=== PATIENT | female | born 1960 | race Caucasian/White ===

== ENCOUNTER 2023-11-22 08:31 | Outpatient (OUT) | payer OTHER, SELFPAY ==
--- NOTE | 2023-11-22 | XR_ITS ---
The [address] [address] Patient Name: POOJA JOSEPH MRN: [id number] date: 1960 Sex: F Assigned Patient Location: US Current Patient Location: US Accession/Order Number: [id number] Exam Date: 11/22/2023 09:00 Report Date: 11/24/2023 07:13 At the request of: LORA BRAUN Procedure: XR abdomen 1V EXAMINATION: XR abdomen 1V HISTORY: History of kidney stones Z87.442 COMPARISON: No relevant comparison available. FINDINGS: KIDNEY/URETER - RIGHT: No visible renal or ureteral calcifications. KIDNEY/URETER - LEFT: 4 mm calcification upper pole PELVIS: No visible ureteral calcifications. Any visible calcifications favor phleboliths. BOWEL: No abnormal dilation or deviation. Large amount of stool in the right colon BONES: No acute abnormality. OTHER: Negative. No abnormal gaseous collections. XR/XR abdomen 1V IMPRESSION: 4 mm left nephrolith Electronically authenticated by: ADRY LANGLEY Date: 11/24/2023 07:13
--- NOTE | 2023-11-22 | US_ITS ---
[address] [address] Patient Name: OPOJA JOSEPH MRN: [id number] date: 1960 Sex: F Assigned Patient Location: US Current Patient Location: Accession/Order Number: [id number] Exam Date: 11/22/2023 08:35 Report Date: 11/24/2023 07:05 At the request of: LORA BRAUN Procedure: US renal BI EXAMINATION: US renal BI HISTORY: History of kidney stones Z87.442 COMPARISON: No relevant comparison available. TECHNIQUE: Ultrasound examination was performed of the bladder. FINDINGS: Right Kidney: Normal in size and contour. Diffusely hyperechogenic appearance of the renal pyramids. No solid cortical mass, hydronephrosis or obstructing nephrolithiasis. The cortex measures 0.6 cm Height: 5.7 cm Length: 10.3 cm Width: 5.8 cm Left Kidney: Normal in size and contour. Diffusely hyperechogenic appearance of the renal pyramids. No solid cortical mass, hydronephrosis or obstructing nephrolithiasis. The cortex measures 0.6 cm Height: 4.5 cm Length: 9.9 cm Width: 4.6 cm Urinary bladder volume is 279 mL. 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
== END 2023-11-22 08:32 | disposition home or self-care (01) ==
LOC: US 08:31
PROVIDERS: PCP Family Medicine; Visit Provider Physician Assistant
DX: N20.1 Calculus of ureter (principal); Z87.442 Personal history of urinary calculi; N20.0 Calculus of kidney
CPT/HCPCS: 74018; 76775

== ENCOUNTER 2024-02-02 15:45 | Inpatient (IN) | payer OTHER, SELFPAY ==
[2024-02-02] VITALS (8 sets, daily range): BP systolic 154–200; BP diastolic 82–101; PULSE 60–84; TEMP 36.5–36.7; O2SAT 87–98; BMI 30.8; BMI 33.5
--- NOTE | 2024-02-02 16:28 | ED_ITS ---
HPI HPI - General Adult General Chief complaint: Back Pain/Injury Stated complaint: Flank Pain, HX Kidney Stones Time Seen by Provider: 02/02/24 15:53 Mode of arrival: walk-in Limitations: no limitations History of Present Illness HPI narrative: 63-year-old female presents for right flank pain. It started at 2:00 this afternoon and she was sitting when it started. There was no injury. No hematuria or injury or unusual activity. She has a history of kidney stones and thinks she may have another 1. Related Data Home Medications ?Medication ?Instructions ?Recorded ?Confirmed albuterol sulfate 2.5 mg/3 mL 2.5 mg inhalation 02/02/24 (0.083 %) solution for nebulization alendronate 70 mg tablet 70 mg PO .weekly 02/02/24 02/02/24 aspirin 81 mg capsule 81 mg PO DAILY 02/02/24 02/02/24 budesonide-formoterol HFA 160 2 puff inhalation Q12H 02/02/24 02/02/24 mcg-4.5 mcg/actuation aerosol inhaler (Symbicort) cyproheptadine 4 mg tablet 4 mg PO .hs 02/02/24 02/02/24 docusate sodium 100 mg capsule 100 mg PO DAILY 02/02/24 02/02/24 losartan 50 mg tablet 50 mg PO DAILY 02/02/24 02/02/24 methimazole 10 mg tablet 10 mg PO DAILY 02/02/24 02/02/24 montelukast 10 mg tablet 10 mg PO DAILY 02/02/24 02/02/24 Allergies Allergy/AdvReac Type Severity Reaction Status Date / Time No Known Drug Allergies Allergy Verified 02/02/24 15:59 Opioid HPI Opioid Management Most Recent Opioid Data: Last Pain Scale 10 02/02/24 18:15 Last NOV Pain Assessment 02/02/24 18:07 Review of Systems ROS Narrative A ten point review of systems is negative except as noted above. Exam Narrative Exam Narrative: Nurses note and vital signs reviewed and patient is not hypoxic. General: The patient appears uncomfortable. Skin: Warm, dry, no pallor noted. There is no rash noted. Head: Normocephalic, atraumatic Eye: Normal conjunctiva, no drainage Ears, Nose, Mouth, and Throat: oral mucosa is moist. Nares patent. Cardiovascular: Regular Rate and Rhythm Respiratory: Patient is in no distress, no accessory muscle use, lungs are clear to auscultation, no wheezing, rales or rhonchi Back: non-tender, no bruise or rash on her back GI: Soft and nontender Musculoskeletal: The patient has no evidence of calf tenderness, no pitting edema, symmetrical pulses noted bilaterally Neurological: A&O, normal speech Psychiatric: Cooperative Constitutional Vital Signs, click to edit/add: Last Vital Signs Temp 97.7 F 02/02/24 16:04 Pulse 76 02/02/24 18:14 Resp 24 H 02/02/24 18:14 BP 160/88 H 02/02/24 18:14 Pulse Ox 96 02/02/24 18:14 O2 Del Method Room Air 02/02/24 16:04 Course Vital Signs Vital signs: Vital Signs Temperature 97.7 F 02/02/24 16:04 Pulse Rate 84 02/02/24 16:04 Respiratory Rate 17 02/02/24 16:04 Blood Pressure 200/101 H 02/02/24 16:04 Pulse Oximetry 98 02/02/24 16:04 Oxygen Delivery Method Room Air 02/02/24 16:04 Temperature 97.7 F 02/02/24 16:04 Pulse Rate 76 02/02/24 18:14 Respiratory Rate 24 H 02/02/24 18:14 Blood Pressure 160/88 H 02/02/24 18:14 Pulse Oximetry 96 02/02/24 18:14 Oxygen Delivery Method Room Air 02/02/24 16:04 Medical Decision Making MDM Narrative Medical decision making narrative: The patient has a 4 mm distal stone with significant hydronephrosis. She has been having a great deal of pain here and has required multiple doses of IV pain medication. She was covered with IV Rocephin as well and a urine culture was ordered. It is expected that she will be admitted. Differential Diagnosis Differential Diagnosis: Kidney stone, pyelonephritis, UTI Lab Data Lab results reviewed: Yes I reviewed the patient's lab results Labs: Lab Results 02/02/24 Range/Units 16:20 WBC 12.1 H (4.0-11.0) 10^3/uL RBC 4.87 (4.20-5.40) 10^6/uL Hgb 13.9 (12.0-16.0) g/dL Hct 43.7 (36.0-48.0) % MCV 89.7 (81.0-99.0) fL MCH 28.5 (26.7-34.0) pg MCHC 31.8 (29.9-35.2) g/dL RDW 13.6 (11.0-15.0) % Plt Count 313 (150-450) 10^3/uL MPV 9.9 (9.5-13.5) fL Neut % (Auto) 85.3 H (43.0-75.0) % Lymph % (Auto) 8.3 L (20.5-60.0) % [place] % (Auto) 4.6 (1.7-12.0) % Eos % (Auto) 1.2 (0.9-7.0) % Baso % (Auto) 0.3 (0.2-2.0) % Neut # (Auto) 10.3 H (1.4-6.5) 10^3/uL Lymph # (Auto) 1.0 L (1.2-3.8) 10^3/uL [place] # (Auto) 0.6 (0.3-0.8) 10^3/uL Eos # (Auto) 0.2 (0.0-0.7) 10^3/uL Baso # (Auto) 0.0 (0.0-0.1) 10^3/uL Abs Immat Gran (auto) 0.04 H (0.00-0.03) 10^3/uL Imm/Tot Granulo (auto) 0.3 (0.0-0.5) % Sodium 139 (136-145) mmol/L Potassium 3.8 (3.5-5.1) mmol/L Chloride 103 (98-107) mmol/L Carbon Dioxide 26.6 (21.0-32.0) mmol/L Anion Gap 13.2 BUN 15.0 (7.0-18.0) mg/dL Creatinine 0.76 (0.55-1.02) mg/dL Est GFR ( Amer) >60 (>=60) Est GFR (Non-Af Amer) >60 (>=60) BUN/Creatinine Ratio 19.7 Glucose 158 H (74-106) mg/dL Calcium 9.2 (8.5-10.1) mg/dL Urine Color Yellow (YELLOW) Urine Clarity Clear (CLEAR) Urine pH 6.0 (5.0-9.0) Ur Specific [place] >=1.030 A (1.005-1.025) Urine Protein 30 A (NEG/TRACE) mg/dL Urine Glucose (UA) Negative (NEGATIVE) mg/dL Urine Ketones Trace A (NEGATIVE) mg/dL Urine Occult Blood Large A (NEGATIVE) Urine Nitrite Negative (NEGATIVE) Urine Bilirubin Negative (NEGATIVE) Urine Urobilinogen 1.0 (0.2-1.0) EU/dL Ur Leukocyte Esterase Small A (NEGATIVE) Urine RBC 20-50 A (0-2) #/HPF Urine WBC 2-5 A (NONE SEEN) #/HPF Ur Squamous Epith Cells Few A (NONE/RARE) #/LPF Urine Crystals None seen (None Seen) #/HPF Urine Bacteria Moderate A (NONE SEEN) #/HPF Urine Casts None seen (NONE SEEN) #/LPF Urine Mucus None seen (NONE SEEN) Ur Culture Indicated? Yes Imaging Data CT scan - abdomen: Radiologist's impression: ITS Impressions Abdomen/Pelvis CT 02/02/24 16:28 IMPRESSION: Obstructing 4 mm right distal ureteral stone resulting in moderate hydronephrosis. Electronically authenticated by: KIA MONTES Date: 02/02/2024 18:02 Discharge Plan Discharge Chief Complaint: Back Pain/Injury Clinical Impression: Renal colic, Kidney stone Patient Disposition: Admitted as Observation Time of Disposition Decision: 18:48 Condition: Good
--- NOTE | 2024-02-02 16:28 | CT_ITS ---
The [address] [address] Patient Name: POOJA JOSEPH MRN: [facility]:[id number] date: 1960 Sex: F Assigned Patient Location: ER Current Patient Location: ER Accession/Order Number: [id number] Exam Date: 02/02/2024 16:47 Report Date: 02/02/2024 18:02 At the request of: KACEY CORDOVA Procedure: CT abdomen pelvis wo con CT ABDOMEN/PELVIS WITHOUT IV CONTRAST. INDICATION: flank pain, r/o stone COMPARISON: There are no other studies available for comparison. TECHNIQUE: Contiguous axial images were obtained from the lung bases to the pelvic floor without intravenous or oral contrast. Coronal and sagittal reformations are provided. FINDINGS: LOWER LUNGS: Clear. LIVER/BILIARY TREE: No discrete lesion. No intrahepatic ductal dilatation. GALLBLADDER: Status post cholecystectomy.. CBD: Normal CBD. SPLEEN: Normal in size. PANCREAS: No appreciable peripancreatic fluid. No pancreatic ductal dilatation. No discrete lesion. ADRENALS: Normal. KIDNEYS: There is an obstructing 3 x 4 mm stone in the distal right ureter near the UVJ resulting in moderate hydronephrosis. Left nephrolithiasis. . STOMACH AND BOWEL: Moderate size hiatal hernia. No dilated bowel loops. No bowel wall thickening. APPENDIX: Not well-visualized. PERITONEAL CAVITY: No fluid. No fat stranding. ABDOMINAL WALL: No subcutaneous stranding. No subcutaneous fluid collection. LYMPH NODES: No mesenteric or retroperitoneal lymphadenopathy by CT criteria. ABDOMINAL AORTA: No aneurysm. PELVIS: Right distal ureteral stone as described above. MUSCULOSKELETAL: No acute osseous abnormality. CT/CT abdomen pelvis wo con IMPRESSION: Obstructing 4 mm right distal ureteral stone resulting in moderate hydronephrosis. Electronically authenticated by: KIA MONTES Date: 02/02/2024 18:02
[2024-02-02] MEDS: MORPHINE SULFATE 4 MG/ML VIAL IV ×2 (16:37→17:23)
[2024-02-02 16:43] LABS: Basophils Percent Auto 0.3 % (0.2-2.0); Eosinophils Absolute Auto 0.2 10^3/uL (0.0-0.7); Eosinophils Percent Auto 1.2 % (0.9-7.0); Hematocrit 43.7 % (36.0-48.0); Hemoglobin 13.9 g/dL (12.0-16.0); Immature Granulocytes Abs Auto 0.04 10^3/uL (0.00-0.03); Immature Granulocytes Pct Auto 0.3 % (0.0-0.5); Lymphocytes Percent Auto 8.3 % (20.5-60.0); Mean Corpuscular HGB Conc 31.8 g/dL (29.9-35.2); Mean Corpuscular Hemoglobin 28.5 pg (26.7-34.0); Mean Corpuscular Volume 89.7 fL (81.0-99.0); Mean Platelet Volume 9.9 fL (9.5-13.5); Monocytes Absolute Auto 0.6 10^3/uL (0.3-0.8); Monocytes Percent Auto 4.6 % (1.7-12.0); Neutrophils Absolute Auto 10.3 10^3/uL (1.4-6.5); Neutrophils Percent Auto 85.3 % (43.0-75.0); Platelet Count 313 10^3/uL (150-450); Red Blood Count 4.87 10^6/uL (4.20-5.40); Red Cell Distribution Width 13.6 % (11.0-15.0); White Blood Count 12.1 10^3/uL (4.0-11.0)
[2024-02-02 16:52] LABS: Anion Gap 13.2; BUN Creatinine Ratio 19.7; Calcium 9.2 mg/dL (8.5-10.1); Carbon Dioxide 26.6 mmol/L (21.0-32.0); Chloride 103 mmol/L (98-107); Estimated GFR (African America >60 (>=60); Estimated GFR (Non-African Ame >60 (>=60); Glucose 158 mg/dL (74-106); Potassium 3.8 mmol/L (3.5-5.1); Sodium 139 mmol/L (136-145)
[2024-02-02 16:58] LABS: Bilirubin Urine NEGATIVE (NEGATIVE); Blood Urine LARGE (NEGATIVE); Clarity Urine CLEAR (CLEAR); Color Urine YELLOW (YELLOW); Glucose Urine UA NEGATIVE (NEGATIVE); Ketones Urine TRACE mg/dL (NEGATIVE); Leukocyte Esterase Urine SMALL (NEGATIVE); Nitrite Urine NEGATIVE (NEGATIVE); Protein Urine 30 mg/dL (NEG/TRACE); Specific Gravity Urine >=1.030 (1.005-1.025)
[2024-02-02 17:07] LABS: Bacteria Urine MODERATE #/HPF (NONE SEEN); Cast Seen? NONE SEEN #/LPF (NONE SEEN); Crystals Seen? None Seen #/HPF (None Seen); Mucus Urine NONE SEEN (NONE SEEN); RBC Urine 20-50 #/HPF (0-2); Squamous Epithelial Cell Urine FEW #/LPF (NONE/RARE); Urine Culture Indicated YES
[2024-02-02] MEDS: ONDANSETRON PF 4 MG/2 ML VIAL IV ×2 (17:09→22:54)
[2024-02-02] MEDS: HYDROMORPHONE HCL 1 MG/ML CARTRIDGE IV (18:07)
[2024-02-02] MEDS: PROMETHAZINE HCL 12.5 MG in 0.9 % SODIUM CHLORIDE 50 ML 202 MG IV (18:10)
[2024-02-02] MEDS: CEFTRIAXONE 1,000 MG in 0.9 % SODIUM CHLORIDE 50 ML 100 MG IV (18:29)
[2024-02-02 20:42] LABS: Hematocrit 41.9 % (36.0-48.0); Hemoglobin 13.1 g/dL (12.0-16.0); Mean Corpuscular HGB Conc 31.3 g/dL (29.9-35.2); Mean Corpuscular Volume 92.7 fL (81.0-99.0); Mean Platelet Volume 10.6 fL (9.5-13.5); Platelet Count 225 10^3/uL (150-450); Red Blood Count 4.52 10^6/uL (4.20-5.40); Red Cell Distribution Width 13.5 % (11.0-15.0); White Blood Count 16.2 10^3/uL (4.0-11.0)
[2024-02-02 20:57] LABS: Alanine Aminotransferase 40 U/L (14-59); Albumin Globulin Ratio 0.8; Albumin Level 2.9 g/dL (3.4-5.0); Alkaline Phosphatase 88 U/L (46-116); Anion Gap 11.1; Aspartate Amino Transferase 20 U/L (15-37); BUN Creatinine Ratio 21.5; Bilirubin Total 0.3 mg/dL (0.2-1.0); Calcium 8.7 mg/dL (8.5-10.1); Carbon Dioxide 25.4 mmol/L (21.0-32.0); Chloride 105 mmol/L (98-107); Estimated GFR (African America >60 (>=60); Estimated GFR (Non-African Ame >60 (>=60); Globulin 3.8 g/dL; Glucose 186 mg/dL (74-106); Potassium 4.5 mmol/L (3.5-5.1); Sodium 137 mmol/L (136-145); Total Protein 6.7 g/dL (6.4-8.2)
[2024-02-02 21:10] LABS: Lymphocytes Absolute Manual 0.48 10^3/uL (1.20-3.80); Monocytes Absolute Manual 0.16 10^3/uL (0.30-0.80); Segmented Neut Absolute Manual 15.55 10^3/uL (1.4-6.5)
[2024-02-02 21:11] LABS: Toxic Granulation 2+
--- OUTSIDE RECORDS SUMMARY | 2024-02-02 21:55 | XMS_ITS | CCD ---
Author Organization [facility] Care Team Providers Care Data Review Specialist Name Role Phone GERA TERESA Primary Care Physician Kristina Donald Unavailable Maria Isabel Hadley Unavailable Caitlyn Long Unavailable DO Gera Teresa Primary Care Provider NABEEL Peters Attending Provider [phone] DO Gera Teresa Primary Care Provider NABEEL Peters Attending Provider MD Caitlyn Long Attending Provider [phone] CAYETANO, DR ARVIN Peterson Consulting Unavailable DEINSSE OAKLEY Admitting Unavailable DENISSE OAKLEY Attending Unavailable DENISSE OAKLEY Consulting Unavailable JESÚS ., DR BOOKER Attending Unavailable HAY ., DR BOOKER Admitting Unavailable CAYETANO, DR ARVIN Peterson Consulting Unavailable JESÚS ., DR BOOKER Consulting Unavailable PATRICA, DR GERA Thakkar Primary Care Unavailable FRAN, BARBARA Consulting Unavailable FRANGIOVANNIBARBARA Admitting Unavailable FRANGIOVANNIBARBARA Attending Unavailable KASSIDY ., DR ANDERSON Admitting Unavailable YI ., DR ANDERSON Attending Unavailable YI ., DR ANDERSON Consulting Unavailable PATRICA, DR GERA Thakkar Primary Care Unavailable STARRNG, DR GERA Thakkar Primary Care Unavailable YI ., DR ANDERSON Attending Unavailable YI ., DR ANDERSON Consulting Unavailable YI ., DR ANDERSON Admitting Unavailable TOLEDO, DR ADRY Norman Consulting Unavailable Caitlyn Long Admitting Unavailable Gera Teresa Primary Care Unavailable Caitlyn Long Attending Unavailable Gera Teresa Primary Care Unavailable Fran, Barbara Attending Unavailable Fran, Barabra Admitting Unavailable Furlong, Gera Primary Care Unavailable Maria Isabel Hadley Attending Unavailable Maria Isabel Hadley Admitting Unavailable Caitlyn Long Attending Unavailable Chaalissa, Kamclayton Admitting Unavailable Furlong, Gera Primary Care Unavailable Fran ELECTRICAL FOREMAN-FREIGHT CHECKER, Barbara L Primary Care Provider FRAN, BARBARA L Referring Unavailable FRAN, BARBARA L Primary Care Unavailable FRAN, BARBARA L Referring Unavailable FRAN, BARBARA L Primary Care Unavailable RAMBASEK, TYLER E Attending Unavailable RAMBASEK, TYLER E Attending Unavailable RAMBASEK, TYLER E Attending Unavailable ANNIE NICOLE Attending Unavailable RAMBASEK, TYLER E Referring Unavailable KADE, FLORINDA E Attending Unavailable KADE, FLORINDA E Admitting Unavailable KADE, FLORINDA E Attending Unavailable Akkina, Krzysztof Admitting Unavailable Akkina, Krzysztof Attending Unavailable KADE, FLORINDA E Attending Unavailable FRAN, BARBARA L Attending Unavailable FRAN, BARBARA L Referring Unavailable FRAN, BARBARA L Primary Care Unavailable Allergies Allergy Classification Reported Allergen(s) Allergy Type Date of Onset Reaction(s) Facility (1 source) No Known Medication Allergies; Translations: [No Known Medication Allergies] Propensity to adverse reactions (disorder) [facility] Medications Current Medications Medication Drug Class(es) Dates Sig (Normalized) Sig (Original) acetaminophen 325 mg / butalbital 50 mg / caffeine 40 mg oral tablet (4 sources) Barbiturate, Central Nervous System Stimulant, Methylxanthine Start: 01-24-2022 take 1 tablet by mouth every four hours for headache APAP/butalbital/ca ffeine 325 mg-50 mg-40 mg Tab 1 tab(s), Oral, q4hr for headache, 60 tab(s), Refill(s) 0 Start Date: 01/24/22 Status: Ordered acetaminophen 325 mg / oxyCODONE hydrochloride 5 mg oral tablet (2 sources) Opioid Agonist Start: 03-31-2022 Percocet 5 mg-325 mg oral tablet 1 tab(s), Oral, q6hr as needed for pain, 10 tab(s), Refill(s) 0, [facility], 165, cm, 03/30/22 21:43:00 EDT, Height/Length Dosing, 79.5, kg, 03/30/22 21:43:00 EDT, Weight Dosing Start Date: 03/31/22 Status: Ordered albuterol 0.83 mg/ml inhalation solution (17 sources) beta2-Adrenergic Agonist Start: 08-22-2023 take 1 dose by inhalation three times daily as needed albuterol (PROVENTIL,VENTOLI N) 2.5 mg /3 mL (0.083 %) nebulizer solution Indications: Unspecified asthma, uncomplicated INHALE 1 (ONE) vial by NEBULIZER THREE TIMES DAILY NEEDED 90 mL 3 08/22/2023 Active Start: 11-14-2020 take 2.5 mg by inhal ation every six hours albuterol 0.083% Inh Linda 3 mL 2.5 mg, 3 mL, NEB, q6hr, Refill(s) 0, Shortness of breath or wheezing Start Date: 11/14/20 Status: Ordered Start: 11-14-2020 take 2.5 mg by inhal ation every six hours albuterol 0.083% Inh Linda 3 mL 2.5 mg, 3 mL, NEB, q6hr, Refill(s) 0, Shortness of breath or wheezing Start Date: 11/14/20 Status: Ordered Albuterol Active Albuterol (Eqv-ProAir HFA) 90 mcg/inh inhalation aerosol (7 sources) Start: 11-14-2020 take 2 puff(s) by inhalation every six hours as needed for wheezing Albuterol (Eqv-ProAir HFA) 90 mcg/inh inhalation aerosol 2 puff(s), Inhalation, q6hr, Refill(s) 0, as needed, Shortness of breath or wheezing Start Date: 11/14/20 Status: Ordered alendronic acid 70 mg oral tablet (7 sources) Bisphosphonate Start: 06-02-2023 take 1 tablet by mouth in the morning alendronate (FOSAMAX) 70 mg tablet Indications: Osteoporosis without current pathological fracture, unspecified osteoporosis type Take 1 tablet (70 mg total) by mouth every 7 days. In a.m. with water on empty stomach, nothing else by mouth and remain upright for 30min 4 tablet 11 06/02/2023 Active Amoxicillin (1 source) Penicillin-class Antibacterial Amoxicillin Active aspirin 81 mg delayed release oral tablet (20 sources) Platelet Aggregation Inhibitor, Nonsteroidal Anti-inflammatory Drug Start: 10-08-2019 take 1 tablet by mouth once daily aspirin 81 mg Oral EC Tab 81 mg = 1 tab(s), Oral, Daily, Refills(s) 0, Blood Thinner Start Date: 10/08/19 Status: Ordered Start: 10-08-2019 take 1 tablet by ede th once daily aspirin 81 mg Oral EC Tab 81 mg = 1 tab(s), Oral, Daily, Refills(s) 0, Blood Thinner Start Date: 10/08/19 Status: Ordered Aspirin Active azelastine hydrochloride 0.137 mg/actuat metered dose nasal spray (8 sources) Histamine-1 Receptor Antagonist Start: 09-18-2023 End: 11-10-2023 take 2 spray(s) nasal route twice daily at bedtime azelastine (ASTELIN) 137 mcg (0.1 %) nasal spray instill 2 (TWO) sprays IN EACH NOSTRIL TWICE DAILY (IN THE MORNING and BEFORE bedtime) 30 mL 1 11/10/2023 Active Start: 07-24-2023 End: 09-18-2023 take 2 spray(s) nasal route in the morning azelastine (ASTELIN) 137 mcg (0.1 %) nasal spray Administer 2 sprays into each nostril in the morning and 2 sprays before bedtime. Use in each nostril as directed. 30 mL 1 07/24/2023 09/18/2023 Discontinued azithromycin 250 mg Tab 5-day Dose Pack (Z-Jewel) (1 source) Start: 11-25-2022 End: 11-30-2022 azithromycin 250 mg Tab 5-day Dose Pack (Z-Jewel) = 1 packet(s), Oral, As Directed, as directed on package labeling, X 5 day(s), # 6 tab(s), Refills(s) 0, Pharmacy: [facility], 165, cm, 11/25/22 9:56:00 EDT, Height/Length Dosing, 84.2, kg, 11/25/22 9:56:00 EDT, Weight Dosing Start Date: 11/25/22 Stop Date: 11/30/22 Status: Ordered benzonatate 200 mg oral capsule (1 source) Non-narcotic Antitussive Start: 11-25-2022 End: 12-02-2022 take 1 capsule by mouth three times daily benzonatate 200 mg oral capsule 200 mg = 1 cap(s), Oral, TID, X 7 day(s), # 21 cap(s), Refills(s) 0, Pharmacy: [facility], 165, cm, 11/25/22 9:56:00 EDT, Height/Length Dosing, 84.2, kg, 11/25/22 9:56:00 EDT, Weight Dosing Start Date: 11/25/22 Stop Date: 12/02/22 Status: Ordered 60 actuat budesonide 0.16 mg/actuat / formoterol fumarate 0.0045 mg/actuat metered dose inhaler (9 sources) Corticosteroid, beta2-Adrenergic Agonist Start: 04-21-2023 take 2 puff(s) by mouth twice daily SYMBICORT 160-4.5 mcg/actuation inhaler Indications: Unspecified asthma, uncomplicated INHALE 2 PUFFS BY MOUTH TWICE DAILY 10.2 g 5 04/21/2023 Active Symbicort Active cefdinir 300 mg oral capsule (1 source) Cephalosporin Antibacterial Start: 11-25-2022 End: 12-05-2022 take 1 capsule by mouth every twelve hours cefdinir 300 mg Cap 300 mg = 1 cap(s), Oral, q12hr, X 10 day(s), # 20 cap(s), Refills(s) 0, Pharmacy: [facility], 165, cm, 11/25/22 9:56:00 EDT, Height/Length Dosing, 84.2, kg, 11/25/22 9:56:00 EDT, Weight Dosing Start Date: 11/25/22 Stop Date: 12/05/22 Status: Ordered cephalexin 500 mg oral capsule (1 source) Cephalosporin Antibacterial Start: 03-31-2022 End: 04-07-2022 take 1 capsule by mouth four times daily Keflex 500 mg Cap 500 mg = 1 cap(s), Oral, QID, X 7 day(s), # 28 cap(s), Refills(s) 0, Pharmacy: [facility], 165, cm, 03/30/22 21:43:00 EDT, Height/Length Dosing, 79.5, kg, 03/30/22 21:43:00 EDT, Weight Dosing Start Date: 03/31/22 Stop Date: 04/07/22 Status: Ordered ciprofloxacin 500 mg oral tablet (7 sources) Quinolone Antimicrobial Start: 01-25-2022 Cipro 500 mg Tab See Instructions, Take 1 tab day prior to procedure and 1 tab day of procedure after the procedure., # 2 tab(s), Refills(s) 0, Pharmacy: [facility], 165, cm, 01/24/22 6:15:00 EDT, Height/Length Dosing, 87.5, kg, 01/24/22 6:15:00 EDT, W... Start Date: 01/25/22 Status: Ordered Start: 01-24-2022 take 1 tablet by ede twice daily Cipro 500 mg Tab 500 mg = 1 tab(s), Oral, BID, # 10 tab(s), Refills(s) 0, Pharmacy: [facility], 165, cm, 01/24/22 6:15:00 EDT, Height/Length Dosing, 87.5, kg, 01/24/22 6:15:00 EDT, Weight Dosing Start Date: 01/24/22 Status: Ordered cyproheptadine hydrochloride 4 mg oral tablet (20 sources) Start: 10-14-2019 End: 12-17-2023 take 1 tablet by mouth in the evening cyproheptadine (PERIACTIN) 4 mg tablet Indications: Migraine without aura, not intractable, without status migrainosus take 1 tablet by mouth in the evening 90 tablet 1 12/17/2023 Active Cyproheptadine H Cl Active docusate sodium 100 mg oral capsule (20 sources) Start: 10-08-2019 take 1 capsule by mouth once daily Dulcolax Stool Softener 100 mg oral capsule 100 mg = 1 cap(s), Oral, Daily, Refills(s) 0 Start Date: 10/08/19 Status: Ordered Start: 10-08-2019 take 1 capsule by mo [facility] twice daily as needed for constipation Dulcolax Stool Softener 100 mg oral capsule 100 mg = 1 cap(s), Oral, BID, PRN for constipation, Refills(s) 0 Start Date: 10/08/19 Status: Ordered Docusate Sodium 100 mg prn Not-Taking Docusate Sodium 100 mg prn Active famotidine 40 mg oral tablet (2 sources) Histamine-2 Receptor Antagonist Start: 12-06-2020 take 1 tablet by mouth once daily at bedtime Pepcid 40 mg Tab 40 mg = 1 tab(s), Oral, Once a day (at bedtime), # 90 tab(s), Refills(s) 1, Pharmacy: [facility], 165, cm, 12/06/20 10:28:00 EDT, Height/Length Dosing, 84.4, kg, 12/06/20 10:28:00 EDT, Weight Dosing Start Date: 12/06/20 Status: Ordered hydrocortisone 25 mg/ml topical cream (6 sources) Corticosteroid Start: 02-20-2023 hydrocortisone (HYTONE) 2.5 % cream Apply 1 Application topically in the morning and 1 Application before bedtime. 30 g 0 02/20/2023 Active losartan potassium 50 mg oral tablet (20 sources) Angiotensin 2 Receptor Riley Start: 08-12-2023 take 1 tablet by mouth once daily losartan (COZAAR) 50 mg tablet Indications: Essential (primary) hypertension TAKE 1 TABLET BY MOUTH DAILY 90 tablet 1 08/12/2023 Active Start: 11-19-2022 losartan Refil ls(s) 0 Start Date: 11/19/22 Status: Ordered take 1 tablet by ede th every twenty-four hours Losartan Potassium 25 MG 1 tablet Orally Once a day Active Losartan Potassi um Active meclizine hydrochloride 25 mg oral tablet (4 sources) Antiemetic Start: 01-24-2022 take 1 tablet by mouth three times daily as needed for dizziness meclizine 25 mg Tab 25 mg = 1 tab(s), Oral, TID, PRN for dizziness, # 30 tab(s), Refills(s) 0 Start Date: 01/24/22 Status: Ordered methIMAzole 10 mg oral tablet (20 sources) Thyroid Hormone Synthesis Inhibitor Start: 10-08-2019 methimazole 10 mg Tab 10 mg = 1 tab(s), Oral, MonWedFri, Refills(s) 0, Thyroid Start Date: 10/08/19 Status: Ordered take 1 tablet by ede th three times daily methIMAzole (TAPAZOLE) 10 mg tablet Take 1 tablet (10 mg total) by mouth 3 (three) times a day. 0 Active methIMAzole Acti ve methylPREDNISolone 4 mg oral tablet (1 source) Corticosteroid Start: 07-12-2021 methylPREDNISolone 4 MG as directed Orally Once a day for 6 days Jun, Active Multi Vitamins oral tablet (13 sources) Start: 11-14-2020 take 1 tablet by mouth once daily Multi Vitamins oral tablet 1 tab(s), Oral, Daily, Refill(s) 0, Prophylaxis Start Date: 11/14/20 Status: Ordered Multivitamin preparation (8 sources) Multivitamin Act lisbeth naproxen 500 mg oral tablet (4 sources) Nonsteroidal Anti-inflammatory Drug Start: 01-24-2022 take 1 tablet by mouth twice daily as needed for pain naproxen 500 mg Tab 500 mg = 1 tab(s), Oral, BID, PRN for pain, # 20 tab(s), Refills(s) 0 Start Date: 01/24/22 Status: Ordered nitrofurantoin, macrocrystals 25 mg / nitrofurantoin, monohydrate 75 mg oral capsule (3 sources) Nitrofuran Antibacterial Start: 01-14-2022 take 1 capsule by mouth every twelve hours Macrobid 100 MG 1 cap(s) Orally bid for 5 day(s) January, Active Carpenter 3 (5 sources) Carpenter 3 Active Carpenter-3 (2 sources) Start: 10-08-2019 Carpenter-3 Oral, Daily, Refill(s) 0, Prophylaxis Start Date: 10/08/19 Status: Ordered omeprazole 40 mg Cap-DR (4 sources) Start: 01-08-2021 take 1 capsule by mouth twice daily omeprazole 40 mg Cap-DR 40 mg = 1 cap(s), Oral, BID, # 60 cap(s), Refills(s) 2, Pharmacy: [facility], 165, cm, 01/08/21 7:20:00 EDT, Height/Length Dosing, 84.4, kg, 01/08/21 7:20:00 EDT, Weight Dosing Start Date: 01/08/21 Status: Ordered Start: 12-06-2020 take 1 capsule by [facility] once daily omeprazole 40 mg Cap-DR 40 mg = 1 cap(s), Oral, Daily, # 30 cap(s), Refills(s) 2, Pharmacy: [facility], 165, cm, 12/06/20 10:28:00 EDT, Height/Length Dosing, 84.4, kg, 12/06/20 10:28:00 EDT, Weight Dosing Start Date: 12/06/20 Status: Ordered ondansetron 4 mg disintegrating oral tablet (11 sources) Serotonin-3 Receptor Antagonist Start: 06-13-2023 take 1 tablet by mouth every eight hours as needed for nausea and vomiting ondansetron ODT (ZOFRAN ODT) 4 mg disintegrating tablet Dissolve 1 tablet (4 mg total) on tongue every 8 (eight) hours as needed for nausea or vomiting. 20 tablet 0 06/13/2023 Active Start: 01-24-2022 take 1 tablet by ede th three times daily as needed for nausea ondansetron 4 mg Dis Tab 4 mg = 1 tab(s), Oral, TID, PRN Nausea, Refills(s) 0 Start Date: 01/24/22 Status: Ordered Start: 01-24-2022 take 1 tablet by ede th three times daily as needed for nausea ondansetron 4 mg Dis Tab 4 mg = 1 tab(s), Oral, TID, PRN Nausea, Refills(s) 0 Start Date: 01/24/22 Status: Ordered Start: 06-02-2021 take 1 tablet by ede th three times daily as needed for nausea Zofran 4 MG 1 tablet Orally tid prn for 2 days 1 tab ODT 3 times daily as needed nausea May, Not-Taking oxybutynin chloride 5 mg oral tablet (3 sources) Cholinergic Muscarinic Antagonist Start: 01-24-2022 End: 03-25-2022 take 1 tablet by mouth twice daily oxybutynin 5 mg Tab 5 mg = 1 tab(s), Oral, BID, X 30 day(s), # 60 tab(s), Refills(s) 1, Pharmacy: [facility], 165, cm, 01/24/22 6:15:00 EDT, Height/Length Dosing, 87.5, kg, 01/24/22 6:15:00 EDT, Weight Dosing Start Date: 01/24/22 Stop Date: 03/25/22 Status: Ordered phenazopyridine hydrochloride 200 mg oral tablet (3 sources) Start: 01-14-2022 take 1 tablet by mouth every eight hours Pyridium 200 MG 1 tablet after meals Orally Three times a day for 2 day(s) January, Active Potassium (1 source) Potassium Active Potassium Acetate (2 sources) Start: 03-06-2020 take 1 tablet by mouth once daily potassium acetate = 1 tab(s), Oral, Daily, Refills(s) 0, Prophylaxis Start Date: 03/06/20 Status: Ordered predniSONE 20 mg oral tablet (9 sources) Start: 06-02-2023 take 1 tablet by mouth twice daily predniSONE (DELTASONE) 20 mg tablet TAKE 1 TABLET BY MOUTH TWICE DAILY 0 06/02/2023 Active Start: 11-25-2022 End: 12-02-2022 take 3 tablets by mouth once daily predniSONE 20 mg Tab 60 mg = 3 tab(s), Oral, Daily, X 7 day(s), # 21 tab(s), Refills(s) 0, Pharmacy: [facility], 165, cm, 11/25/22 9:56:00 EDT, Height/Length Dosing, 84.2, kg, 11/25/22 9:56:00 EDT, Weight Dosing Start Date: 11/25/22 Stop Date: 12/02/22 Status: Ordered Symbicort 160/4.5 inhalation aerosol with adapter (11 sources) Start: 01-24-2022 take 2 puff(s) by inhalation twice daily Symbicort 160/4.5 inhalation aerosol with adapter 2 puff(s), Inhalation, BID, Refill(s) 0 Start Date: 01/24/22 Status: Ordered ubrogepant 100 mg oral tablet (7 sources) Start: 07-24-2023 End: 09-18-2023 take 1 tablet by mouth every two hours as needed ubrogepant (UBRELVY) 100 mg tablet TAKE 1 TABLET BY MOUTH NEEDED FOR MIGRAINE, may repeat dose in 2 (TWO) HOURS for a max OF 200 mg/ day 10 tablet 1 09/18/2023 Active Completed/Discontinued Medications Medication Drug Class(es) Dates Sig (Normalized) Sig (Original) Ketorolac (14 sources) Nonsteroidal Anti-inflammatory Drug, Cyclooxygenase Inhibitor Start: 06-22-2019 Toradol per 15 mg Jun, 60 mg Start: 07-10-2016 Toradol per 15 mg Jun, 60 mg montelukast 10 mg oral tablet (20 sources) Leukotriene Receptor Antagonist Start: 11-15-2020 End: 12-17-2023 take 1 tablet by mouth in the evening montelukast (SINGULAIR) 10 mg tablet Indications: Allergic rhinitis, unspecified TAKE 1 TABLET BY MOUTH IN THE EVENING 90 tablet 2 03/24/2023 12/17/2023 Discontinued Montelukast Sodi um Active Promethazine (14 sources) Phenothiazine Start: 06-22-2019 PROMETHAZINE ( Phenergan) up to 50 mg Jun, 12.5 mg Start: 07-10-2016 PROMETHAZINE ( Phenergan) up to 50 mg Jun, 25 mg Toradol 30 mg/ml (8 sources) Start: 06-15-2023 Toradol 30 mg/ ml Jun, 30 mg Start: 06-02-2021 Toradol 30 mg/ ml May, 30 mg triamcinolone acetonide 40 mg/ml injectable suspension (1 source) Corticosteroid Start: 06-15-2023 Kenalog-40 Jun, 40 mg Problems Active Problems Problem Classification Problem Date Documented Da te Episodic/Chronic Asthma (18 sources) Asthma; Translations: [Unspecified asthma, uncomplicated] Onset: 07-12-2021 Resolved: 07-12-2021 Chronic Essential hypertension (20 sources) Hypertensive disorder; Translations: [Essential hypertension] Onset: 11-26-2019 Resolved: 12-05-2022 11-15-2019 Chronic Genitourinary congenital anomalies (6 sources) Medullary cystic disease of the kidney; 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] Onset: 12-17-2019 12-05-2022 Chronic Headache; including migraine (11 sources) Migraine; Translations: [Migraine, unspecified, not intractable, without status migrainosus] 12-17-2023 Chronic Mood disorders (2 sources) Depressive disorder; Translations: [Depression] 12-29-2023 Chronic Other liver diseases (1 source) Enzyme level - finding; Translations: [Abnormal levels of other serum enzymes] Onset: 01-24-2022 Episodic Other lower respiratory disease (1 source) Personal history of other diseases of the respiratory system Episodic Other nutritional; endocrine; and metabolic disorders (1 source) Obesity; Translations: [Obesity, unspecified] Onset: 01-24-2022 Chronic Other nutritional; endocrine; and metabolic disorders (7 sources) Body mass index 30+ - obesity; Translations: [Obesity, unspecified] Onset: 10-25-2022 10-25-2022 Chronic Other nutritional; endocrine; and metabolic disorders (2 sources) Body mass index (BMI) 33.0-33.9, adult; Translations: [Body Mass Index 33.0-33.9, adult] Onset: 01-28-2024 12-29-2023 Chronic Other nutritional; endocrine; and metabolic disorders (1 source) Other obesity due to excess calories; Translations: [Other obesity due to excess calories] Onset: 01-28-2024 Chronic Other screening for suspected conditions (not mental disorders or infectious disease) (4 sources) Patient encounter status; Translations: [Encounter for screening mammogram for malignant neoplasm of breast] Onset: 11-05-2023 10-07-2023 Episodic Other upper respiratory disease (1 source) Allergic rhinitis, unspecified Chronic Other upper respiratory disease (1 source) Allergic rhinitis; Translations: [Allergic rhinitis, unspecified] 12-17-2023 Chronic Other upper respiratory disease (1 source) Nasal congestion Episodic Other upper respiratory infections (2 sources) Acute upper respiratory infection, unspecified; Translations: [Acute pharyngitis, unspecified] Episodic Pneumonia (except that caused by tuberculosis or sexually transmitted disease) (1 source) Pneumonia; Translations: [Pneumonia, unspecified organism] Onset: 11-25-2022 Episodic Residual codes; unclassified (5 sources) Sleep apnea; Translations: [Sleep apnea, unspecified] Chronic Residual codes; unclassified (2 sources) Sleep apnea, unspecified; Translations: [Sleep apnea, unspecified] Onset: 08-22-2022 Chronic Residual codes; unclassified (10 sources) Obstructive sleep apnea syndrome; Translations: [Obstructive sleep apnea (adult) (pediatric)] Onset: 10-25-2022 10-25-2022 Chronic Residual codes; unclassified (2 sources) Obstructive sleep apnea (adult) (pediatric); Translations: [Obstructive sleep apnea (adult)(pediatric)] Chronic Residual codes; unclassified (1 source) Obstructive sleep apnea (adult)(pediatric); Translations: [Obstructive sleep apnea (adult) (pediatric)] Onset: 12-23-2022 Chronic Residual codes; unclassified (1 source) Pain; Translations: [Pain, unspecified] Onset: 01-24-2022 Episodic Residual codes; unclassified (1 source) Procedure carried out on subject; Translations: [Encounter for prophylactic measures, unspecified] Onset: 01-24-2022 Episodic Residual codes; unclassified (6 sources) Restless sleep; Translations: [Sleep disorder, unspecified] 12-29-2023 Episodic Residual codes; unclassified (2 sources) Sleep disorder, unspecified; Translations: [Sleep disturbance, unspecified] Episodic Thyroid disorders (20 sources) Graves' disease; Translations: [Hyperthyroidism] Onset: 01-24-2022 09-18-2020 Chronic Unclassified (1 source) R30.0 - Dysuria; Translations: [R30.0 - Dysuria] Onset: 01-14-2022 Urinary tract infections (3 sources) Urinary tract infection, site not specified; Translations: [Urinary tract infectious disease] Onset: 01-14-2022 Resolved: 01-14-2022 Episodic Past or Other Problems Problem Classification Problem Date Documented Da te Episodic/Chronic Calculus of urinary tract (20 sources) Kidney stone; Translations: [Calculus of kidney] Onset: 01-24-2022 Episodic Fluid and electrolyte disorders (6 sources) Hypokalemia; Translations: [Hypokalemia] Onset: 12-17-2019 12-05-2022 Episodic Genitourinary symptoms and ill-defined conditions (4 sources) Dysuria; Translations: [Hematuria, unspecified] Onset: 01-14-2022 Resolved: 01-14-2022 Episodic Headache; including migraine (1 source) Headache; including migraine Immunizations and screening for infectious disease (1 source) Contact with and (suspected) exposure to other viral communicable diseases; Translations: [Contact with and (suspected) exposure to other viral communicable diseases Z20.828] Onset: 07-12-2021 Resolved: 07-12-2021 Episodic Mood disorders (6 sources) Mood disorders Onset: 07-24-2023 07-24-2023 Other aftercare (1 source) extermination inspector (current) use of aspirin; Translations: [ALF CURRENT USE OF ASPIRIN] Onset: 02-28-2022 Episodic Other aftercare (1 source) Other residential (current) drug therapy; Translations: [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 THERAPY] Onset: 02-28-2022 Episodic Other connective tissue disease (4 sources) Pain in right foot; Translations: [PAIN IN RIGHT FOOT] Onset: 02-28-2022 Episodic Other non-traumatic joint disorders (5 sources) Pain in right ankle and joints of right foot; Translations: [PAIN IN RIGHT ANKLE] Onset: 02-27-2022 Episodic Other nutritional; endocrine; and metabolic disorders (19 sources) Body mass index 25-29 - overweight; Translations: [Overweight] Onset: 10-25-2022 11-15-2019 Episodic Pulmonary heart disease (14 sources) Other pulmonary embolism without acute cor pulmonale; Translations: [Pulmonary embolism] Onset: 04-19-2022 Episodic Unclassified (1 source) Contact with and (suspected) exposure to covid-19 Z20.822 Results Test Name Value Interpretation Reference Range Facility Physician Orderon 01-19-2024 Physician Order [id number]#1.00TIFF [facility] RAD - MISCon 12-02-2023 RAD - MISC [id number]#1.00TIFF [facility] [facility] RAD - Ultrasound Reporton RAD - Ultrasound Report [id number]#[id number] [facility] Screenson 12-02-2023 Screens [id number]#1.00TIFF [facility] Ambulatory Visit Summaryon 0 11-25-2023 Ambulatory Visit Summary POOJA JOSEPH :1960 Visit Date:11/25/2023 Ambulatory Visit Instructions Your Diagnosis Kidney stone Your Care Team Attending Physician - FLORINDA BRAUN PA-C Primary Care Physician - GERA TERESA DO This Is Your Medications List Contact prescribing physician if questions or concerns alendronate (alendronate 70 mg Tab) aspirin (aspirin 81 mg Oral EC Tab) budesonide-formoterol (Symbicort 160/4.5 inhalation aerosol with adapter) cyproheptadine (cyproheptadine 4 mg Tab) docusate (Dulcolax Stool Softener 100 mg oral capsule) losartan methimazole (methimazole 10 mg Tab) montelukast (montelukast 10 mg Tab) multivitamin (Multi Vitamins oral tablet) Procedures Performed Cystoscopy (01/24/2022), Esophagogastroduodenoscopy and biopsy (01/08/2021), Colonoscopy (10/14/2019), Appendectomy, Cholecystectomy, History of knee surgery, Repair of diaphragmatic hiatal hernia by thoracoabdominal approach, Total hysterectomy. Discharge Vitals Temperature (Temporal Artery) 37.2 ?C Heart Rate (Peripheral) 82 Blood Pressure 132/86 Height 165 cm Height 65 in Weight 79.3 kg Weight 174.46 lb BMI 29.13 What to do next Scheduled Follow-Up Appointments Friday 8:20 AM EDT With: FLORINDA BRAUN PA-C Where: [facility] Patient Educationon 11-25-19 Patient Education Urology Kidney Stones Kidney stones are rock-like masses that form inside of the kidneys. Kidneys are organs that make pee (urine). A kidney stone may move into other parts of the urinary tract, including: ? The tubes that connect the kidneys to the bladder (ureters). ? The bladder. ? The tube that carries urine out of the body (urethra). Kidney stones can cause very bad pain and can block the flow of pee. The stone usually leaves your body (passes) through your pee. You may need to have a doctor take out the stone. What are the causes? Kidney stones may be caused by: ? A condition in which certain glands make too much parathyroid hormone (primary hyperparathyroidism). ? A buildup of a type of crystals in the bladder made of a chemical called uric acid. The body makes uric acid when you eat certain foods. ? Narrowing (stricture) of one or both of the ureters. ? A kidney blockage that you were born with. ? Past surgery on the kidney or the ureters, such as gastric bypass surgery. What increases the risk? You are more likely to develop this condition if: ? You have had a kidney stone in the past. ? You have a family history of kidney stones. ? You do not drink enough water. ? You eat a diet that is high in protein, salt (sodium), or sugar. ? You are overweight or very overweight (obese). What are the signs or symptoms? Symptoms of a kidney stone may include: ? Pain in the side of the belly, right below the ribs (flank pain). Pain usually spreads (radiates) to the groin. ? Needing to pee often or right away (urgently). ? Pain when going pee (urinating). ? Blood in your pee (hematuria). ? Feeling like you may vomit (nauseous). ? Vomiting. ? Fever and chills. How is this treated? Treatment depends on the size, location, and makeup of the kidney stones. The stones will often pass out of the body through peeing. You may need to: ? Drink more fluid to help pass the stone. In some cases, you may be given fluids through an IV tube put into one of your veins at the hospital. ? Take medicine for pain. ? Make changes in your diet to help keep kidney stones from coming back. Sometimes, medical procedures are needed to remove a kidney stone. This may involve: ? A procedure to break up kidney stones using a beam of light (laser) or shock waves. ? Surgery to remove the kidney stones. Follow these instructions at home: Medicines ? Take kmhw-wcn-lfcayep and prescription medicines only as told by your doctor. ? Ask your doctor if the medicine prescribed to you requires you to avoid driving or using heavy machinery. Eating and drinking ? Drink enough fluid to keep your pee pale yellow. You may be told to drink at least 8?10 glasses of water each day. This will help you pass the stone. ? If told by your doctor, change your diet. This may include: ? Limiting how much salt you eat. ? Eating more fruits and vegetables. ? Limiting how much meat, poultry, fish, and eggs you eat. ? Follow instructions from your doctor about eating or drinking restrictions. General instructions ? Collect pee samples as told by your doctor. You may need to collect a pee sample: ? 24 hours after a stone comes out. ? 8?12 weeks after a stone comes out, and every 6?12 months after that. ? Strain your pee every time you pee (urinate), for as long as told. Use the strainer that your doctor recommends. ? Do not throw out the stone. Keep it so that it can be tested by your doctor. ? Keep all follow-up visits as told by your doctor. This is important. You may need follow-up tests. How is this prevented? To prevent another kidney stone: ? Drink enough fluid to keep your pee pale yellow. This is the best way to prevent kidney stones. ? Eat healthy foods. ? Avoid certain foods as told by your doctor. You may be told to eat less protein. ? Stay at a healthy weight. Where to find more information ? National Kidney Foundation (NKF): www.kidney.org ? U[employer] Foundation (UCF): www.urologyhealth.org Contact a doctor if: ? You have pain that gets worse or does not get better with medicine. Get help right away if: ? You have a fever or chills. ? You get very bad pain. ? You get new pain in your belly (abdomen). ? You pass out (faint). ? You cannot pee. Summary ? Kidney stones are rock-like masses that form inside of the kidneys. ? Kidney stones can cause very bad pain and can block the flow of pee. ? The stones will often pass out of the body through peeing. ? Drink enough fluid to keep your pee pale yellow. This information is not intended to replace advice given to you by your health care provider. Make sure you discuss any questions you have with your health care provider. Document Revised: 05/06/2022 Document Reviewed: 05/06/2022 [employer] Patient Education ? 2022 AMDL. [facility] Reminderson 11-25-2023 Reminders - From: Karma Torres To: JAMIE Maher; Sent: 11/25/2023 14:37:32 EDT Show up: 11/25/2023 14:36:00 EDT Subject: NABIL/KUB Reminder Message Pt needs KUB and NABIL prior to next appt in 1 year. Orders created today. Pt to have done at [facility]. Normal [facility] Urology Office/Clinic Noteon 11-25-2023 Urology Office/Clinic Note Chief Complaint 1 year F/U with KUB and NABIL HPI Staff PRW pt DX: Hx of Kidney Stones *NO Urology Meds NABIL & KUB done 11/22/23 @ [facility] B&BSQ 5 Dysuria: _denies Incomplete bladder emptying: denies Hematuria: denies visible blood Frequency: every couple hours Urgency: denies Nocturia: once nightly Stream: denies hesitation, normal stream Leaking: denies Post void dripping: denies Wearing pads/ Depends: denies Urge incontinence: denies Stress incontinence: denies Incontinence without Sensory Awareness: denies Abdominal pain: _denies Flank pain: denies Sexual complaints: denies History of Present Illness staff HPI reviewed and agree. Review of Systems PHQ Score Initial Depression Screen Score: 0 SCORE no fever, chills, malaise, myalgia. no rash/lesions. no chest pain, palpitations, or SOB. no abdominal pain, nausea, vomiting. no unilateral calf swelling, redness, pain Physical Exam Vitals & Measurements T: 37.2 ?C(Temporal Artery) HR: 82(Peripheral) BP: 132/86 HT: 65 in HT: 165 cm WT: 79.3 kg WT: 174.46 lb BMI: 29.13 General: nontoxic, NAD Mouth: moist mucosa Lungs: normal respiratory effort Cardio: regular rate, good distal perfusion Abdomen: nondistended, no suprapubic distention or tenderness, no CVA tenderness Neurologic: Grossly normal Skin: No rashes or suspicious lesions Assessment/Plan 1. Kidney stone (N20.0: Calculus of kidney) S/p Cysto, RRG, urs, stone basket, Rt. stent placement with Dr. Maher 01/24/22 due to a 4 to 5 mm stone in the right distal ureter. ER 03/30/22 for Lt. flank pain with nausea and vomiting. CT done 03/30/22 shows 2mm calculus in the left distal ureter just proximal to the UVJ. IVP 04/23/22 neg. NABIL 11/22/23 - diffusely hyperechogenic bilateral renal pyramids suggesting medullary nephrocalcinosis KUB 11/22/23 - 4mm L upper pole stone Pt denies pain or any stone issues since last appointment. Encouraged pt to increase fluid intake to prevent stones. Talked with patient again regarding metabolic workup results and pt did not recall discussing low oxalate diet. Again provided pt information sheet regarding this. Informed pt to call our office or go to ER if pt develops stone symptoms. UA today shows trace leuks, no blood. Pt asx. BBSQ 5 -Increase fluid intake -Low oxalate diet -NABIL and KUB for f/u appt in 1 year Ordered: US Renal XR Abdomen 1 View Follow-up With When Contact Information KADE RIOS, FLORINDA Pinto, URL In 1 year [address] [facility] [place] [address] Additional Instructions: KUB/NABIL Patient Education Kidney Stones, Qrct-ky-Anqh I, NELSON Gutierrez, personally scribed for REJI Lim on 11/25/2023 14:50:48. . Documentation recorded by the scribe Karma Greco accurately reflects the services(s) I performed and decisions made by me. Authenticated by Florinda Braun PA-C on 11/25/2023 16:44:01. Problem List/Past Medical History Ongoing BMI 27.0-27.9,adult Graves disease Hypertension Hyperthyroidism Pulmonary embolus Historical Ureteral stone Procedure/Surgical History Cystoscopy (01/24/2022), Esophagogastroduodenoscopy and biopsy (01/08/2021), Colonoscopy (10/14/2019), Appendectomy, Cholecystectomy, History of knee surgery, Repair of diaphragmatic hiatal hernia by thoracoabdominal approach, Total hysterectomy. Medications alendronate 70 mg Tab aspirin 81 mg Oral EC Tab, 81 mg= 1 tab(s), Oral, Daily cyproheptadine 4 mg Tab, 4 mg= 1 tab(s), Oral, Bedtime Dulcolax Stool Softener 100 mg oral capsule, 100 mg= 1 cap(s), Oral, Daily, Not taking losartan methimazole 10 mg Tab, 10 mg= 1 tab(s), Oral, MonWedFri montelukast 10 mg Tab, 10 mg= 1 tab(s), Oral, Bedtime, 2 refills Multi Vitamins oral tablet, 1 tab(s), Oral, Daily Symbicort 160/4.5 inhalation aerosol with adapter, 2 puff(s), Inhalation, BID Allergies No Known Allergies No Known Medication Allergies Social History Alcohol - Denies Alcohol Use, 10/11/2019 Substance Abuse - Denies Substance Abuse, 10/11/2019 Tobacco - Denies Tobacco Use, 10/11/2019 Never (less than 100 in lifetime) Tobacco Use:. Never Smokeless Tobacco Use:. Cigarettes, 11/25/2023 Former smoker, quit more than 30 days ago Tobacco Use:., 01/30/2021 Family History Diabetes mellitus type 2: Mother and Father. Leukemia: Father. Immunizations Vaccine Date Status Comments zoster vaccine, inactivated 08/06/2023 Recorded influenza virus vaccine, inactivated 06/19/2023 Recorded zoster vaccine, inactivated 04/11/2023 Recorded pneumococcal 20-valent conjugate vaccine 04/11/2023 Recorded influenza virus vaccine, inactivated 06/27/2022 Recorded SARS-CoV-2 (COVID-19) mRNA-1273 vaccine 09/27/2021 Recorded influenza virus vaccine, inactivated 06/27/2021 Recorded SARS-CoV-2 (COVID-19) mRNA-1273 vaccine 12/08/2020 Recorded 2023-11-25: TPV23 SARS-CoV-2 (COVID-19) mRNA-1273 vaccine 11/08/2020 (more content not included)... [facility] Comment on above: Result Comment: Elec tronically Signed By: FLORINDA BRAUN PA-C\.br\Date and Time Signed: 11/25/23 16:44 EDT\.br\Electronically Co-Signed By: Karma Torres\.br\Date and Time Co-Signed: 11/25/23 14:51 EDT RAD - MISCon 11-24-2023 RAD - MISC [id number]#1.00TIFF [facility] RAD - Ultrasound Reporton RAD - Ultrasound Report [id number]#1.00TIFF [facility] CHEMISTRYOrdered By: SYSTEM SYSTEM on 11-18-2023 Albumin [Mass/Vol] 3.9 g/dL Normal 3.3 - 5.0 gm/dL Remisol Chem Anion gap [Moles/Vol] 11 mmol/L Normal 6 - 16 mEq/L Remisol Chem Calcium [Mass/Vol] 8.8 mg/dL Low 8.9 - 11. 1 mg/dL Remisol Chem Chloride [Moles/Vol] 105 mmol/L Normal 101 - 111 mmol/L Remisol Chem CO2 [Moles/Vol] 28 mmol/L Normal 21 - 31 mmol/L Remisol Chem Creatinine [Mass/Vol] 0.6 mg/dL Normal 0.5 - 1.3 mg/dL Remisol Chem eGFR 102 mL/min/1.73 m2 Normal >=59mL/mi n /1.73 m2 Remisol Chem Glucose [Mass/Vol] 126 mg/dL Normal 55 - 199 mg/dL Remisol Chem Phosphate [Mass/Vol] 3.1 mg/dL Normal 1.9 - 4.6 mg/dL Remisol Chem Potassium [Moles/Vol] 4.1 mmol/L Normal 3.5 - 5.3 mmol/L Remisol Chem Sodium [Moles/Vol] 140 mmol/L Normal 135 - 145 mmol/L Remisol Chem Urea nitrogen [Mass/Vol] 10 mg/dL Normal 5 - 21 mg/dL Remisol Chem Urea nitrogen/Creatinine [Mass ratio] 17 mg/mg Normal 10 - 20 Remisol Chem Protein/Creatinine (U) [Ratio] 15.40 mg/gm Cr Normal 0.00 - 200.00 mg/gm Cr Remisol Chem U Creatinine 153.0 mg/dL Invalid Interpretation Code Remisol Chem Ur Total Protein 23.5 mg/dL Invalid Interpretation Code Remisol Chem Consent for Treatmenton Consent for Treatment [id number]#1.00TIFF [facility] Consent for Treatment [id number]#1.00TIFF [facility] Physician Orderon 11-18-2023 Physician Order [id number]#1.00TIFF Normal [facility] Physician Order [id number]#1.00TIFF Normal [facility] Renal Panelon 11-18-2023 Albumin [Mass/Vol] 3.9 g/dL Normal 3.3-5.0 [facility] Comment on above: Performed By: #### 1 [id number], [id number] ####[facility] [address] [facility] [place] [address] Anion gap [Moles/Vol] 11 mmol/L Normal 6-16 [facility] Comment on above: Performed By: #### 1 [id number], [id number] ####[facility] [address] [address] Calcium [Mass/Vol] 8.8 mg/dL Low 8.9-11.1 [facility] Comment on above: Performed By: #### 1 [id number], [id number] ####[facility] [address] [facility] [place] [address] Chloride [Moles/Vol] 105 mmol/L Normal 101-111 [facility] Comment on above: Performed By: #### 1 [id number], [id number] ####[facility] [address] [address] CO2 [Moles/Vol] 28 mmol/L Normal 21-31 [facility] Comment on above: Performed By: #### 1 [id number], [id number] ####[facility] [address] [place] [address] Creatinine [Mass/Vol] 0.6 mg/dL Normal 0.5-1.3 [facility] Comment on above: Performed By: #### 1 [id number], [id number] ####[facility] [address] [place] [address] Glucose [Mass/Vol] 126 mg/dL Normal 55-199 [facility] Comment on above: Performed By: #### 1 [id number], [id number] ####[facility] [address] [address] Phosphate [Mass/Vol] 3.1 mg/dL Normal 1.9-4.6 [facility] Comment on above: Performed By: #### 1 [id number], [id number] ####[facility] [address] [address] Potassium [Moles/Vol] 4.1 mmol/L Normal 3.5-5.3 [facility] Comment on above: Performed By: #### 1 [id number], [id number] ####[facility] [address] [place] [address] Sodium [Moles/Vol] 140 mmol/L Normal 135-145 [facility] Comment on above: Performed By: #### 1 [id number], [id number] ####[facility] [address] [place] [address] Urea nitrogen [Mass/Vol] 10 mg/dL Normal 5-21 [facility] Comment on above: Performed By: #### 1 [id number], [id number] ####[facility] [address] [place] [address] Urea nitrogen/Creatinine [Mass ratio] 17 No Units Normal 10-20 [facility] Comment on above: Performed By: #### 1 [id number], [id number] ####[facility] [address] [place] [address] U Protein/Creat Ratioon 03-0 Protein/Creatinine (U) [Ratio] 15.40 mg/gm Cr Normal .00-200.00 [facility] Comment on above: Performed By: #### 1 [id number], [id number] ####[facility] [address] [place] [address] U Creatinine 153.0 mg/dL Invalid Interpretation Code [facility] Comment on above: Performed By: #### 1 [id number], [id number] ####[facility] [address] [facility] [place] [address] Ur Total Protein 23.5 mg/dL Invalid Interpretation Code [facility] Comment on above: Performed By: #### 1 [id number], [id number] ####[facility] [address] [place] [address] URINALYSISOrdered By: Skyla ahn on 11-18-2023 Bilirubin Ql (U) Negative (11/18/23 2:51 PM) Normal Negative [facility] UA Auto SS Clarity (U) Clear (11/18/23 2:51 PM) Normal Clear [facility] UA Auto SS Color (U) Yellow (11/18/23 2:51 PM) Normal Yellow [facility] UA Auto SS Crystals LM Ql (Urine sed) Present (11/18/23 2:51 PM) Normal [facility] UA Auto SS Epithelial cells.squamous LM.HPF (Urine sed) [#/Area] 0-2 /HPF Normal 0-2/HPF [facility] UA Auto SS Glucose Test strip (U) [Mass/Vol] Negative (11/18/23 2:51 PM) Normal Negative [facility] UA Auto SS Hemoglobin Ql (U) Negative (11/18/23 2:51 PM) Normal Negative [facility] UA Auto SS Ketones (U) [Mass/Vol] Negative (11/18/23 2:51 PM) Normal Negative [facility] UA Auto SS [place].plasma/Lith ium.RBC (Bld) [Mass ratio] 0-3 /HPF Normal 0-3/HPF [facility] UA Auto SS Mucus Ql (Urine sed) Trace (11/18/23 2:51 PM) Normal [facility] UA Auto SS Nitrite Ql (U) Negative (11/18/23 2:51 PM) Normal Negative [facility] UA Auto SS pH (U) 7.0 *NA* (11/18/23 2:51 PM) Invalid Interpretation Code 5.0 - 9.0 [facility] UA Auto SS Protein (U) [Mass/Vol] Negative (11/18/23 2:51 PM) Normal Negative [facility] UA Auto SS Specific gravity (U) [Rel density] 1.020 *NA* (11/18/23 2:51 PM) Invalid Interpretation Code 1.005 - 1.030 [facility] UA Auto SS UA Spec Desc Clean Catch (11/18/23 2:51 PM) Normal [facility] UA Auto SS Urobilinogen Qn (U) 1.4049736 {Joni'U}/dL Normal 0.0 - 1.0 EU/dL [facility] UA Auto SS WBC Auto Ql (U) Negative (11/18/23 2:51 PM) Normal Negative [facility] UA Auto SS WBC LM.HPF (Urine sed) [#/Area] 0-5 /HPF Normal 0-5/HPF [facility] UA Auto SS US BREAST LT LIMITEDon 11-17 US BREAST LT LIMITED US BREAST LT LIMITED EXAM: US BREAST LT LIMITED, 11/18/2023 10:31 AM CLINICAL INDICATIONS:Abnormal mammogram of left breast. COMPARISON: Mammography from 11/05/2023 and 11/02/2022 TECHNIQUE: Multiple real-time valderrama-scale images of the left retroareolar region in the 12 o'clock axis were performed. Color Doppler was utilized to assess vascular flow. FINDINGS: An anechoic structure measuring up to 1.4 cm is compatible with a cyst and correlates with the mammographic abnormality. No solid or cystic lesions are evident. IMPRESSION: A benign cyst correlates with the mammographic density BI-RADS: BI-RADS 2 - Benign Recommendation: Routine screening mammogram in 1 year The patient was notified of the results of this study. Finalized by Franky Herbert MD on 11/18/2023 10:46 AM 2 MAMM 1 YR Normal [facility] Urinalysison 11-18-2023 Bilirubin Ql (U) Negative Normal Negative [facility] Comment on above: Performed By: #### 1 [id number], [id number] ####[facility] [address] [place] [address] Clarity (U) CLEAR Normal Clear [facility] Comment on above: Performed By: #### 1 [id number], [id number] ####[facility] [address] [place] [address] Color (U) YELLOW Normal Yellow [facility] Comment on above: Performed By: #### 1 [id number], [id number] ####[facility] [address] [place] [address] Crystals LM Ql (Urine sed) Present Normal [facility] Comment on above: Performed By: #### 1 [id number], [id number] ####[facility] [address] [place] [address] Epithelial cells.squamous LM.HPF (Urine sed) [#/Area] 0-2 Normal 0-2 [facility] Comment on above: Performed By: #### 1 [id number], [id number] ####[facility] [address] [place] [address] Glucose Test strip (U) [Mass/Vol] Negative Normal Negative [facility] Comment on above: Performed By: #### 1 [id number], [id number] ####[facility] [address] [place] [address] Hemoglobin Ql (U) Negative Normal Negative [facility] Comment on above: Performed By: #### 1 [id number], [id number] ####[facility] [address] [place] [address] Ketones (U) [Mass/Vol] Negative Normal Negative [facility] Comment on above: Performed By: #### 1 [id number], [id number] ####[facility] [address] [place] [address] [place].plasma/Lith ium.RBC (Bld) [Mass ratio] 0-3 Normal 0-3 [facility] Comment on above: Performed By: #### 1 [id number], [id number] ####[facility] [address] [place] [address] Mucus Ql (Urine sed) TRACE Normal [facility] Comment on above: Performed By: #### 1 [id number], [id number] ####[facility] [address] [place] [address] Nitrite Ql (U) Negative Normal Negative [facility] Comment on above: Performed By: #### 1 [id number], [id number] ####[facility] [address] [place] [address] pH (U) 7.0 [pH] Invalid Interpretation Code 5.0-9.0 [facility] Comment on above: Performed By: #### 1 [id number], [id number] ####[facility] [address] [place] [address] Protein (U) [Mass/Vol] Negative Normal Negative [facility] Comment on above: Performed By: #### 1 [id number], [id number] ####[address] [address] Specific gravity (U) [Rel density] 1.020 Invalid Interpretation Code 1.005-1.03 0 [facility] Comment on above: Performed By: #### 1 [id number], [id number] ####[address] [address] Type of Urine collection method Clean Catch Normal [facility] Comment on above: Performed By: #### 1 [id number], [id number] ####[address] [address] Urobilinogen Qn (U) 1.0 {Joni'U}/dL Normal 0.0-1.0 [facility] Comment on above: Performed By: #### 1 [id number], [id number] ####[address] [address] WBC Auto Ql (U) Negative Normal Negative [facility] Comment on above: Performed By: #### 1 [id number], [id number] ####[address] [address] WBC LM.HPF (Urine sed) [#/Area] 0-5 Normal 0-5 [facility] Comment on above: Performed By: #### 1 [id number], [id number] ####[address] [address] eGFRon 11-18-2023 eGFR 102 mL/min/1.73 m2 Normal >=59 [facility] Comment on above: Order Comment: Order added by Discern Expert. Performed By: #### 1 [id number], [id number] ####[facility] [address] [place] [address] MAMM SCREENING BILATERAL W [employer] 11-06-2023 MAMM SCREENING BILATERAL W CAD MAMM SCREENING BILATERAL W CAD EXAM: MAMM SCREENING BILATERAL W CAD, 11/05/2023 2:38 PM CLINICAL INDICATIONS: Screening, Encounter for screening mammogram for malignant neoplasm of breast. COMPARISON: 11/02/2022, 10/30/2021, 10/21/2020 TECHNIQUE: Bilateral digital tomosynthesis MLO and CC views of the breasts were obtained, with creation of synthetic 2D views. Computer aided detection was utilized. FINDINGS: There are scattered areas of fibroglandular density. There are benign-appearing small masses bilaterally, stable. There is a dominant 12 mm mass within the retroareolar left breast, approximately 2 cm from the nipple. There are no right breast suspicious masses, calcifications, or areas of architectural distortions. IMPRESSION: There is a 12 mm mass in the retroareolar left breast which may represent a cyst, however targeted ultrasound is required for complete characterization. BI-RADS: BI-RADS 0 - Incomplete. Needs additional imaging evaluation. Recommendation: Additional imaging required. Screening patients requiring additional imaging will be contacted. Finalized by Sheryl Bradley MD on 11/06/2023 9:32 AM 0A b ADDITIONAL I Normal [facility] COVID Quick Testingon 2022 Result Negative [employer] Other T4on 12-17-2022 T4 [Mass/Vol] 10.10 ug/dL Normal 4.80-13.90 [facility] Comment on above: Performed By: #### N A, URIC, BUN, CA, CL, CO2, CREA, K #### [facility] [address] [address] [address] Florence Beltrán TSHon 12-17-2022 TSH 1.776 uIU/mL Normal 0.358-3.74 0 [facility] Comment on above: Performed By: #### N A, URIC, BUN, CA, CL, CO2, CREA, K #### [facility] [address] [address] [address] Florence Beltrán COVID/FLU RT-PCRon 3 SARS-CoV-2 (COVID-19) RNA KAMRYN+probe Ql (Unsp spec) Negative [employer] Other COVID/FLU RT-PCR Negative A[employer]pose [place] [employer] Other Quick Strepon 11-20-2022 S. pyogenes Org specific cx Ql (Throat) Negative [employer] Other Quick Strep [employer] Other CHEMISTRYOrdered By: SYSTEM SYSTEM on 11-19-2022 Albumin [Mass/Vol] 3.8 g/dL Normal 3.3 - 5.0 gm/dL [facility] Albumin/Globulin [Mass ratio] 1.1 {ratio} Normal 1.1 - 2.2 [facility] ALP [Catalytic activity/Vol] 109 [iU]/d High 21 - 98 Int._Unit/ L [facility] ALT No additional P-5'-P [Catalytic activity/Vol] 30 [iU]/d Normal 6 - 46 Int._Unit/ L [facility] Anion gap [Moles/Vol] 12 mmol/L Normal 6 - 16 mEq/L [facility] AST [Catalytic activity/Vol] 34 [iU]/d Normal 5 - 43 Int._Unit/ L [facility] Bilirubin [Mass/Vol] 0.7 mg/dL Normal 0.0 - 1.1 mg/dL [facility] Calcium [Mass/Vol] 8.8 mg/dL Low 8.9 - 11. 1 mg/dL [facility] Chloride [Moles/Vol] 102 mmol/L Normal 101 - 111 mmol/L [facility] CO2 [Moles/Vol] 26 mmol/L Normal 21 - 31 mmol/L [facility] Creatinine [Mass/Vol] 0.7 mg/dL Normal 0.5 - 1.3 mg/dL [facility] GFR/1.73 sq M.predicted among blacks MDRD (S/P/Bld) [Vol rate/Area] mL/min/1.73 m2 Normal >=59mL/min /1.73 m2 [facility] Chem S GFR/1.73 sq M.predicted among non-blacks MDRD (S/P/Bld) [Vol rate/Area] mL/min/1.73 m2 Normal >=59mL/min /1.73 m2 [facility] Chem S Globulin (S) [Mass/Vol] 3.5 g/dL Normal 1.4 - 4.0 gm/dL [facility] Glucose [Mass/Vol] 114 mg/dL Normal 55 - 199 mg/dL [facility] Potassium [Moles/Vol] 4.3 mmol/L Normal 3.5 - 5.3 mmol/L [facility] Protein [Mass/Vol] 7.3 g/dL Normal 6.0 - 7.8 gm/dL [facility] Sodium [Moles/Vol] 136 mmol/L Normal 135 - 145 mmol/L [facility] Urea nitrogen [Mass/Vol] 13 mg/dL Normal 5 - 21 mg/dL [facility] Urea nitrogen/Creatinine [Mass ratio] 19 mg/mg Normal 10 - 20 [facility] CITRATE URINE 24HRon 022 Citric Acid, U, 24hr 819 mg/24 hr Normal 320-1240 [facility] Comment on above: Result Comment: This test was developed and its performance characteristics determined by [employer] It has not been cleared or approved by the Food and Drug Administration. Performed By: #### C ITRATU #### [facility] [address] [place] [address] Dr. Florence Beltrán Citric Acid, Urine 482 mg/L Normal Undefined [facility] Comment on above: Performed By: #### C ITRATU #### [facility] [address] [place] [address] Dr. Florence Beltrán MAGNESIUM 24HR URINEon 09-14 Magnesium 24hr Urine 93.5 mg/24 hr Normal 12.0-293.0 [facility] Comment on above: Result Comment: No t otal volume submitted. Unable to calculate 24 hour result. Performed By: #### N A, URIC, BUN, CA, CL, CO2, CREA, K #### [facility] [address] [place] [address] Dr. Florence Beltrán Magnesium UR 5.5 mg/dL Normal Not Estab. [facility] Comment on above: Performed By: #### N A, URIC, BUN, CA, CL, CO2, CREA, K #### [facility] [address] [place], [place] [address] Dr. Florence Beltrán OXALATE 24HR URINEon 09-14-2 022 Oxalates, Urine 19 mg/L Normal Undefined [facility] Comment on above: Performed By: #### O [id number] #### [facility] [id number] Florence Beltrán Oxalates, Urine 24hr 32 mg/24 hr Critically high [facility] Comment on above: Performed By: #### O [id number] #### [facility] [address] [address] [address] Florence Beltrán PHOSPHORUS 24HR URINEon 08-17 Phosphorus, Urine 41.7 mg/dL Normal Not Estab. [facility] Comment on above: Performed By: #### N A, URIC, BUN, CA, CL, CO2, CREA, K #### [facility] [address] [address] [address] Florence Beltrán Phosphorus, Urine 24hr 709 mg/24 hr Normal 261-1078 [facility] Comment on above: Result Comment: No t otal volume submitted. Unable to calculate 24 hour result. Performed By: #### N A, URIC, BUN, CA, CL, CO2, CREA, K #### [facility] [address] [address] [address] Florence Beltrán URIC ACID 24 HR URINEon 08-17 Uric Acid, Urine 40.6 mg/dL Normal Not Estab. [facility] Comment on above: Performed By: #### N A, URIC, BUN, CA, CL, CO2, CREA, K #### [facility] [address] [address] [address] Florence Beltrán Uric Acid, Urine 24hr 690.2 mg/24 hr Normal 173.7-902. 1 [facility] Comment on above: Result Comment: No t otal volume submitted. Unable to calculate 24 hour result. Performed By: #### N A, URIC, BUN, CA, CL, CO2, CREA, K #### [facility] [address] [place] [address] Dr. Florence Beltrán PTH INTACTon 09-12-2022 PTH, Intact 21 pg/mL Normal 15-65 [facility] Comment on above: Performed By: #### N A, URIC, BUN, CA, CL, CO2, CREA, K #### [facility] [address] [place] [address] Dr. Florence Beltrán BUNon 09-11-2022 Urea nitrogen [Mass/Vol] 13.0 mg/dL Normal 7.0-18.0 [facility] Comment on above: Performed By: #### N A, URIC, BUN, CA, CL, CO2, CREA, K #### [facility] [address] [place] [address] Dr. Florence Beltrán CALCIUMon 09-11-2022 Calcium [Mass/Vol] 9.0 mg/dL Normal 8.5-10.1 [facility] Comment on above: Performed By: #### N A, URIC, BUN, CA, CL, CO2, CREA, K #### [facility] [address] [place] [address] Dr. Florence Beltrán CALCIUM 24 HR URINEon 2021 CALC, 24 HR UR 180.2 mg/24 hr Normal 100.0-300. 0 [facility] Comment on above: Performed By: #### N A, URIC, BUN, CA, CL, CO2, CREA, K #### [facility] [address] [place] [address] Dr. Florence Beltrán UR CALCIUM 10.6 mg/dL Normal 5.1-21.0 [facility] Comment on above: Performed By: #### N A, URIC, BUN, CA, CL, CO2, CREA, K #### [facility] [address] [place] [address] Dr. Florence Beltrán UR TOT VOL 1700 ml/24 HR Normal [facility] Comment on above: Performed By: #### N A, URIC, BUN, CA, CL, CO2, CREA, K #### [facility] [address] [place] [address] Dr. Florence Beltrán CHLORIDEon 09-11-2022 Chloride [Moles/Vol] 103 mmol/L Normal 98-107 [facility] Comment on above: Performed By: #### N A, URIC, BUN, CA, CL, CO2, CREA, K #### [facility] [address] [address] [address] Florence Beltrán CO2on 09-11-2022 CO2 [Moles/Vol] 28.4 mmol/L Normal 21.0-32.0 [facility] Comment on above: Performed By: #### N A, URIC, BUN, CA, CL, CO2, CREA, K #### [facility] [address] [place] [address] Dr. Florence Beltrán CRERafat 24 HR URINEon CREA, 24 HR UR 844.05 mg/24 hr Normal 800.00-1,8 00.00 [facility] Comment on above: Performed By: #### N A, URIC, BUN, CA, CL, CO2, CREA, K #### [facility] [address] [place] [address] Dr. Florence Beltrán URINE CREAT 49.65 mg/dL Normal 20.00-300. 00 [facility] Comment on above: Performed By: #### N A, URIC, BUN, CA, CL, CO2, CREA, K #### [facility] [address] [place] [address] Dr. Florence Beltrán CREATININEon 09-11-2022 Creatinine [Mass/Vol] 0.58 mg/dL Normal 0.55-1.02 [facility] Comment on above: Performed By: #### N A, URIC, BUN, CA, CL, CO2, CREA, K #### [facility] [address] [place] [address] Dr. Florence Beltrán EGFR-AF TUNISIAN >60 Normal >=60 [facility] Comment on above: Performed By: #### N A, URIC, BUN, CA, CL, CO2, CREA, K #### [facility] [address] [place] [address] Dr. Florence Belrtán EGFR-NON AF TUNISIAN >60 Normal >=60 [facility] Comment on above: Performed By: #### N A, URIC, BUN, CA, CL, CO2, CREA, K #### [facility] [address] [place] [address] Dr. Florence Beltrán NAon 09-11-2022 Sodium [Moles/Vol] 140 mmol/L Normal 136-145 [facility] Comment on above: Performed By: #### N A, URIC, BUN, CA, CL, CO2, CREA, K #### [facility] [address] [place] [address] Dr. Florence Beltrán POTASSIUMon 09-11-2022 Potassium [Moles/Vol] 4.1 mmol/L Normal 3.5-5.1 [facility] Comment on above: Performed By: #### N A, URIC, BUN, CA, CL, CO2, CREA, K #### [facility] [address] [place] [address] Dr. Florence Beltrán SODIUM 24 HR URINEon 022 NA, 24 HR UR 213 mmol/24 hr Normal 40-220 [facility] Comment on above: Performed By: #### N A, URIC, BUN, CA, CL, CO2, CREA, K #### [facility] [address] [place] [address] Dr. Florence Beltrán Sodium (U) [Moles/Vol] 125 mmol/L Critically high 30-90 [facility] Comment on above: Performed By: #### N A, URIC, BUN, CA, CL, CO2, CREA, K #### [facility] [address] [place] [address] Dr. Florence Beltrán URIC ACID SERUMon 09-11-2022 Urate [Mass/Vol] 4.4 mg/dL Normal 2.6-6.0 [facility] Comment on above: Performed By: #### N A, URIC, BUN, CA, CL, CO2, CREA, K #### [facility] [address] [place] [address] Dr. Florence Beltrán BUNon 04-23-2022 Urea nitrogen [Mass/Vol] 14.0 mg/dL Normal 7.0-18.0 [facility] Comment on above: Performed By: #### N A, URIC, BUN, CA, CL, CO2, CREA, K #### [facility] [address] [address] [address] Florence Beltrán CREATININEon 04-23-2022 Creatinine [Mass/Vol] 0.68 mg/dL Normal 0.55-1.02 [facility] Comment on above: Performed By: #### N A, URIC, BUN, CA, CL, CO2, CREA, K #### [facility] [address] [address] [address] Florence Beltrán EGFR-AF TUNISIAN >60 Normal >=60 [facility] Comment on above: Performed By: #### N A, URIC, BUN, CA, CL, CO2, CREA, K #### [facility] [address] [address] [address] Florence Beltrán EGFR-NON AF TUNISIAN >60 Normal >=60 [facility] Comment on above: Performed By: #### N A, URIC, BUN, CA, CL, CO2, CREA, K #### [facility] [address] [address] [address] Florence Beltrán XR IVPon 04-23-2022 XR IVP EXAMINATION: XR IVP HISTORY: Kidney stone COMPARISON: No relevant comparison available. TECHNIQUE: After obtaining patient consent a certified registered locksmith image was obtained followed by injection of 100cc of Omnipaque 300 IV contrast. Immediate nephrographic images were obtained. Corticomedullary and urographic phase images were obtained at 5, 10, 15 and 20 minutes. 15 minute oblique images were also obtained. FINDINGS: KIDNEY/URETER - RIGHT: No visible calcifications. KIDNEY/URETER - LEFT: No visible calcifications. PELVIS: No visible ureteral calcifications. Any visible calcifications favor phleboliths. NEPHROGRAPHIC PHASE: Normal, symmetric size, contour, and orientation. Normal and symmetric time of contrast uptake. CORTICOMEDULLARY: No mass or abnormal appearing medulla, pyramids, or collecting system. UROGRAPHIC PHASE: Normal caliber, course, and number of ureters. BLADDER: Normal size and contour. BOWEL: No abnormal dilation or deviation. BONES: No acute abnormality. OTHER: Negative. No abnormal gaseous collections. IMPRESSION: Normal IVP Electronically authenticated by: ADRY LANGLEY Date: 2022-04-23 10:13 Normal [facility] CHEMISTRYOrdered By: SYSTEM SYSTEM on 03-30-2022 Albumin [Mass/Vol] 4.2 g/dL Normal 3.3 - 5.0 gm/dL [facility] Albumin/Globulin [Mass ratio] 1.1 {ratio} Normal 1.1 - 2.2 [facility] ALP [Catalytic activity/Vol] 142 [iU]/d High 21 - 98 Int._Unit/ L [facility] ALT No additional P-5'-P [Catalytic activity/Vol] 37 [iU]/d Normal 6 - 46 Int._Unit/ L [facility] Anion gap [Moles/Vol] 14 mmol/L Normal 6 - 16 mEq/L [facility] AST [Catalytic activity/Vol] 31 [iU]/d Normal 5 - 43 Int._Unit/ L [facility] Bilirubin [Mass/Vol] 0.4 mg/dL Normal 0.0 - 1.1 mg/dL [facility] Bilirubin.direct [Mass/Vol] 0.2 mg/dL Normal 0.1 - 0.4 mg/dL [facility] Bilirubin.indirect [Mass or moles/Vol] 0.2 mg/dL Normal 0.1 - 0.9 mg/dL [facility] Calcium [Mass/Vol] 9.5 mg/dL Normal 8.9 - 11. 1 mg/dL [facility] Chloride [Moles/Vol] 101 mmol/L Normal 101 - 111 mmol/L [facility] CO2 [Moles/Vol] 26 mmol/L Normal 21 - 31 mmol/L [facility] Creatinine [Mass/Vol] 0.8 mg/dL Normal 0.5 - 1.3 mg/dL [facility] GFR/1.73 sq M.predicted among blacks MDRD (S/P/Bld) [Vol rate/Area] mL/min/1.73 m2 Normal >=59mL/min /1.73 m2 [facility] S GFR/1.73 sq M.predicted among non-blacks MDRD (S/P/Bld) [Vol rate/Area] mL/min/1.73 m2 Normal >=59mL/min /1.73 m2 [facility] S Globulin (S) [Mass/Vol] 3.7 g/dL Normal 1.4 - 4.0 gm/dL [facility] Glucose [Mass/Vol] 114 mg/dL Normal 55 - 199 mg/dL [facility] Lipase [Catalytic activity/Vol] 21 U/L Normal 13 - 58 unit/L [facility] Potassium [Moles/Vol] 4.2 mmol/L Normal 3.5 - 5.3 mmol/L [facility] Protein [Mass/Vol] 7.9 g/dL High 6.0 - 7.8 gm/dL [facility] Sodium [Moles/Vol] 137 mmol/L Normal 135 - 145 mmol/L [facility] Urea nitrogen [Mass/Vol] 18 mg/dL Normal 5 - 21 mg/dL [facility] Urea nitrogen/Creatinine [Mass ratio] 22 mg/mg High 10 - 20 [facility] HEMATOLOGYOrdered By: SYSTEM SYSTEM on 03-30-2022 Basophils/100 WBC (Bld) 0.8 % Normal 0.0 - 2.0 % [facility] Basophils/Leukocyte s Auto (Bld) [Pure # fraction] 0.1 E9/L Normal 0.0 - 0.2 E9/L [facility] Eosinophils/100 WBC (Bld) 4.9 % Normal 0.0 - 8.0 % [facility] Eosinophils/Leukocy anna Auto (Bld) [Pure # fraction] 0.5 E9/L Normal 0.0 - 0.5 E9/L [facility] Lymphocytes/100 WBC (Bld) 14.4 % Normal 14.0 - 50.0 % [facility] Lymphocytes/Leukocy anna Auto (Bld) [Pure # fraction] 1.5 E9/L Normal 1.0 - 4.0 E9/L [facility] Monocytes/100 WBC (Bld) 8.3 % Normal 4.0 - 14.0 % [facility] Monocytes/Leukocyte s Auto (Bld) [Pure # fraction] 0.9 E9/L Normal 0.2 - 1.0 E9/L [facility] Neutrophils/100 WBC (Bld) 71.6 % Normal 36.0 - 75.0 % [facility] Neutrophils/Leukocy anna Auto (Bld) [Pure # fraction] 7.6 E9/L High 2.0 - 7.5 E9/L [facility] HEMATOLOGYOrdered By: Randall Burns on 03-30-2022 Erythrocyte distribution width (RBC) [Ratio] 13.5 % Normal 10.9 - 14.2 % [facility] Hematocrit (Bld) [Volume fraction] 43.5 % Normal 34.0 - 46.0 % [facility] Hemoglobin (Bld) [Mass/Vol] 14.5 g/dL Normal 12.0 - 16.0 gm/dL [facility] MCH (RBC) [Entitic mass] 29.2 pg Normal 27.0 - 34.0 pg [facility] MCHC (RBC) [Mass/Vol] 33.3 g/dL Normal 31.4 - 36.0 gm/dL [facility] MCV (RBC) [Entitic vol] 87.7 fL Normal 80.0 - 100.0 fL [facility] Platelet mean volume (Bld) [Entitic vol] 7.5 fL Normal 6.4 - 10.8 fL [facility] Platelets (Bld) [#/Vol] 377.0 E9/L Normal 150.0 - 500.0 E9/L [facility] RBC (Bld) [#/Vol] 5.0 E12/L Normal 4.3 - 5.9 E12/L [facility] WBC corrected for nucl RBC Auto (Bld) [#/Vol] 10.6 E9/L Normal 4.0 - 11.0 E9/L [facility] URINALYSISOrdered By: Randall Burns on 03-30-2022 Bacteria LM Ql (Urine sed) 2+ /HPF Invalid Interpretation Code Trace/HPF [facility] Bilirubin Ql (U) 1+ *ABN* (03/30/22 10:55 PM) Invalid Interpretation Code Negative [facility] Clarity (U) Clear (03/30/22 10:55 PM) Normal Clear [facility] Color (U) Yellow (03/30/22 10:55 PM) Normal Yellow [facility] Epithelial cells.squamous LM.HPF (Urine sed) [#/Area] 5-8 /HPF Normal 0-2/HPF [facility] Glucose Test strip (U) [Mass/Vol] Negative (03/30/22 10:55 PM) Normal Negative [facility] Hemoglobin Ql (U) 2+ *ABN* (03/30/22 10:55 PM) Invalid Interpretation Code Negative [facility] Ketones (U) [Mass/Vol] Trace *NA* (03/30/22 10:55 PM) Invalid Interpretation Code Negative [facility] Auto SS [place].plasma/Lith ium.RBC (Bld) [Mass ratio] 4-20 /HPF Normal 0-3/HPF [facility] Nitrite Ql (U) Negative (03/30/22 10:55 PM) Normal Negative [facility] pH (U) 5.5 *NA* (03/30/22 10:55 PM) Invalid Interpretation Code 5.0 - 9.0 [facility] Protein (U) [Mass/Vol] 1+ *ABN* (03/30/22 10:55 PM) Invalid Interpretation Code Negative [facility] Specific gravity (U) [Rel density] >=1.030 *NA* (03/30/22 10:55 PM) Invalid Interpretation Code 1.005 - 1.030 [facility] UA Spec Desc Clean Catch (03/30/22 10:55 PM) Normal [facility] Urobilinogen Qn (U) 0.0321525 {Joni'U}/dL Normal 0.0 - 1.0 EU/dL [facility] SS WBC Auto Ql (U) 2+ *ABN* (03/30/22 10:55 PM) Invalid Interpretation Code Negative [facility]A Auto SS WBC LM.HPF (Urine sed) [#/Area] 6-15 /HPF Invalid Interpretation Code 0-5/HPF [facility] Auto SS CBC AUTO DIFFon 02-27-2022 BASO # 0.1 103/ul Normal 0.0-0.1 [facility] Comment on above: Performed By: #### N A, URIC, BUN, CA, CL, CO2, CREA, K #### [facility] [address] [place] [address] Dr. Florence Beltrán Basophils/100 WBC (Bld) 0.6 % Normal 0.2-2.0 [facility] Comment on above: Performed By: #### N A, URIC, BUN, CA, CL, CO2, CREA, K #### [facility] [address] [place] [address] Dr. Florence Beltrán EO # 0.3 103/ul Normal 0.0-0.7 [facility] Comment on above: Performed By: #### N A, URIC, BUN, CA, CL, CO2, CREA, K #### [facility] [address] [place] [address] Dr. Florence Beltrán Eosinophils/100 WBC (Bld) 4.4 % Normal 0.9-7.0 [facility] Comment on above: Performed By: #### N A, URIC, BUN, CA, CL, CO2, CREA, K #### [facility] [address] [place] [address] Dr. Florence Beltrán Erythrocyte distribution width (RBC) [Ratio] 13.0 % Normal 11.0-15.0 [facility] Comment on above: Performed By: #### N A, URIC, BUN, CA, CL, CO2, CREA, K #### [facility] [address] [place] [address] Dr. Florence Beltrán Hematocrit (Bld) [Volume fraction] 42.3 % Normal 36.0-48.0 [facility] Comment on above: Performed By: #### N A, URIC, BUN, CA, CL, CO2, CREA, K #### [facility] [address] [place] [address] Dr. Florence Beltrán Hemoglobin (Bld) [Mass/Vol] 13.9 g/dL Normal 12.0-16.0 [facility] Comment on above: Performed By: #### N A, URIC, BUN, CA, CL, CO2, CREA, K #### [facility] [address] [place] [address] Dr. Florence Beltrán IG # 0.03 10e3/ul Normal 0.00-0.03 [facility] Comment on above: Performed By: #### N A, URIC, BUN, CA, CL, CO2, CREA, K #### [facility] [address] [place] [address] Dr. Florence Beltrán IG % 0.4 % Normal 0.0-0.5 [facility] Comment on above: Performed By: #### N A, URIC, BUN, CA, CL, CO2, CREA, K #### [facility] [address] [place] [address] Dr. Florence Beltrán LYMPH # 1.4 103/ul Normal 1.2-3.8 [facility] Comment on above: Performed By: #### N A, URIC, BUN, CA, CL, CO2, CREA, K #### [facility] [address] [place] [address] Dr. Florence Beltrán Lymphocytes/100 WBC (Bld) 17.9 % Critically low 20.5-60.0 [facility] Comment on above: Performed By: #### N A, URIC, BUN, CA, CL, CO2, CREA, K #### [facility] [address] [place] [address] Dr. Florence Beltrán MANUAL DIFF REQ NO Normal [facility] Comment on above: Performed By: #### N A, URIC, BUN, CA, CL, CO2, CREA, K #### [facility] [address] [place] [address] Dr. Florence Beltrán MCH (RBC) [Entitic mass] 29.6 pg Normal 26.7-34.0 [facility] Comment on above: Performed By: #### N A, URIC, BUN, CA, CL, CO2, CREA, K #### [facility] [address] [place] [address] Dr. Florence Beltrán MCHC (RBC) [Mass/Vol] 32.9 g/dL Normal 29.9-35.2 [facility] Comment on above: Performed By: #### N A, URIC, BUN, CA, CL, CO2, CREA, K #### [facility] [address] [place] [address] Dr. Florence Beltrán MCV (RBC) [Entitic vol] 90.0 fL Normal 81.0-99.0 [facility] Comment on above: Performed By: #### N A, URIC, BUN, CA, CL, CO2, CREA, K #### [facility] [address] [place] [address] Dr. Florence Beltrán MONO # 0.6 103/ul Normal 0.3-0.8 [facility] Comment on above: Performed By: #### N A, URIC, BUN, CA, CL, CO2, CREA, K #### [facility] [address] [place] [address] Dr. Florence Beltrán Monocytes/100 WBC (Bld) 7.8 % Normal 1.7-12.0 [facility] Comment on above: Performed By: #### N A, URIC, BUN, CA, CL, CO2, CREA, K #### [facility] [address] [place] [address] Dr. Florence Beltrán NEUT # 5.4 103/ul Normal 1.4-6.5 [facility] Comment on above: Performed By: #### N A, URIC, BUN, CA, CL, CO2, CREA, K #### [facility] [address] [place] [address] Dr. Florence Beltrán Neutrophils/100 WBC (Bld) 68.9 % Normal 43.0-75.0 [facility] Comment on above: Performed By: #### N A, URIC, BUN, CA, CL, CO2, CREA, K #### [facility] [address] [place] [address] Dr. Florence Beltrán Platelet mean volume (Bld) [Entitic vol] 9.6 fL Normal 9.5-13.5 [facility] Comment on above: Performed By: #### N A, URIC, BUN, CA, CL, CO2, CREA, K #### [facility] [address] [place] [address] Dr. Florence Beltrán PLT 371 103/ul Normal 150-450 [facility] Comment on above: Performed By: #### N A, URIC, BUN, CA, CL, CO2, CREA, K #### [facility] [address] [address] [address] Florence Beltrán RBC 4.70 106/ul Normal 4.20-5.40 [facility] Comment on above: Performed By: #### N A, URIC, BUN, CA, CL, CO2, CREA, K #### [facility] [address] [address] [address] Florence Beltrán WBC 7.8 103/ul Normal 4.0-11.0 [facility] Comment on above: Performed By: #### N A, URIC, BUN, CA, CL, CO2, CREA, K #### [facility] [address] [address] [address] Florence Beltrán CRPon 02-27-2022 CRP 1.1 mg/dL Critically high <=1.0 [facility] Comment on above: Performed By: #### N A, URIC, BUN, CA, CL, CO2, CREA, K #### [facility] [address] [address] [address] Florence Beltrán SED RATE WESTERGRENon 2021 SED RATE 44 mm/hr Critically high <=30 [facility] Comment on above: Performed By: #### N A, URIC, BUN, CA, CL, CO2, CREA, K #### [facility] [address] [address] [address] Florence Beltrán URIC ACID SERUMon 02-27-2022 Urate [Mass/Vol] 5.5 mg/dL Normal 2.6-6.0 [facility] Comment on above: Performed By: #### N A, URIC, BUN, CA, CL, CO2, CREA, K #### [facility] [address] [place] [address] Dr. Florence Beltrán CHEMISTRYOrdered By: SYSTEM SYSTEM on 01-24-2022 Albumin [Mass/Vol] 3.8 g/dL Normal 3.3 - 5.0 gm/dL [facility] Albumin/Globulin [Mass ratio] 1.2 {ratio} Normal 1.1 - 2.2 [facility] ALP [Catalytic activity/Vol] 117 [iU]/d High 21 - 98 Int._Unit/ L [facility] ALT No additional P-5'-P [Catalytic activity/Vol] 31 [iU]/d Normal 6 - 46 Int._Unit/ L [facility] Anion gap [Moles/Vol] 12 mmol/L Normal 6 - 16 mEq/L [facility] AST [Catalytic activity/Vol] 28 [iU]/d Normal 5 - 43 Int._Unit/ L [facility] Bilirubin [Mass/Vol] 0.7 mg/dL Normal 0.0 - 1.1 mg/dL [facility] Bilirubin.direct [Mass/Vol] mg/dL Normal 0.1 - 0.4 mg/dL [facility] Bilirubin.indirect [Mass or moles/Vol] Unable to Calculate mg/dL Invalid Interpretation Code 0.1 - 0.9 mg/dL [facility] Calcium [Mass/Vol] 8.8 mg/dL Low 8.9 - 11. 1 mg/dL [facility] Chloride [Moles/Vol] 103 mmol/L Normal 101 - 111 mmol/L [facility] CO2 [Moles/Vol] 24 mmol/L Normal 21 - 31 mmol/L [facility] Creatinine [Mass/Vol] 0.7 mg/dL Normal 0.5 - 1.3 mg/dL [facility] GFR/1.73 sq M.predicted among blacks MDRD (S/P/Bld) [Vol rate/Area] mL/min/1.73 m2 Normal >=59mL/min /1.73 m2 [facility] Chem S GFR/1.73 sq M.predicted among non-blacks MDRD (S/P/Bld) [Vol rate/Area] mL/min/1.73 m2 Normal >=59mL/min /1.73 m2 [facility] S Globulin (S) [Mass/Vol] 3.3 g/dL Normal 1.4 - 4.0 gm/dL [facility] Glucose [Mass/Vol] 124 mg/dL Normal 55 - 199 mg/dL [facility] Lipase [Catalytic activity/Vol] 20 U/L Normal 13 - 58 unit/L [facility] Potassium [Moles/Vol] 3.9 mmol/L Normal 3.5 - 5.3 mmol/L [facility] Protein [Mass/Vol] 7.1 g/dL Normal 6.0 - 7.8 gm/dL [facility] Sodium [Moles/Vol] 135 mmol/L Normal 135 - 145 mmol/L [facility] Urea nitrogen [Mass/Vol] 21 mg/dL Normal 5 - 21 mg/dL [facility] Urea nitrogen/Creatinine [Mass ratio] 30 mg/mg High 10 - 20 [facility] HEMATOLOGYOrdered By: SYSTEM SYSTEM on 01-24-2022 Basophils/100 WBC (Bld) 0.7 % Normal 0.0 - 2.0 % [facility] Basophils/Leukocyte s Auto (Bld) [Pure # fraction] 0.1 E9/L Normal 0.0 - 0.2 E9/L [facility] Eosinophils/100 WBC (Bld) 4.1 % Normal 0.0 - 8.0 % [facility] Eosinophils/Leukocy anna Auto (Bld) [Pure # fraction] 0.4 E9/L Normal 0.0 - 0.5 E9/L [facility] Lymphocytes/100 WBC (Bld) 10.2 % Low 14.0 - 50.0 % [facility] Lymphocytes/Leukocy anna Auto (Bld) [Pure # fraction] 1.1 E9/L Normal 1.0 - 4.0 E9/L [facility] Monocytes/100 WBC (Bld) 9.3 % Normal 4.0 - 14.0 % [facility] Monocytes/Leukocyte s Auto (Bld) [Pure # fraction] 1.0 E9/L Normal 0.2 - 1.0 E9/L [facility] Neutrophils/100 WBC (Bld) 75.7 % High 36.0 - 75.0 % [facility] Neutrophils/Leukocy anna Auto (Bld) [Pure # fraction] 8.1 E9/L High 2.0 - 7.5 E9/L [facility] HEMATOLOGYOrdered By: Nathaly Cruz on 01-24-2022 Erythrocyte distribution width (RBC) [Ratio] 13.8 % Normal 10.9 - 14.2 % [facility] Hematocrit (Bld) [Volume fraction] 39.9 % Normal 34.0 - 46.0 % [facility] Hemoglobin (Bld) [Mass/Vol] 13.5 g/dL Normal 12.0 - 16.0 gm/dL [facility] MCH (RBC) [Entitic mass] 29.7 pg Normal 27.0 - 34.0 pg [facility] MCHC (RBC) [Mass/Vol] 33.8 g/dL Normal 31.4 - 36.0 gm/dL [facility] MCV (RBC) [Entitic vol] 87.9 fL Normal 80.0 - 100.0 fL [facility] Platelet mean volume (Bld) [Entitic vol] 8.1 fL Normal 6.4 - 10.8 fL [facility] Platelets (Bld) [#/Vol] 354.0 E9/L Normal 150.0 - 500.0 E9/L [facility] RBC (Bld) [#/Vol] 4.5 E12/L Normal 4.3 - 5.9 E12/L [facility] WBC corrected for nucl RBC Auto (Bld) [#/Vol] 10.6 E9/L Normal 4.0 - 11.0 E9/L [facility] URINALYSISOrdered By: Skyla ahn on 01-24-2022 Bacteria LM Ql (Urine sed) 1+ /HPF Invalid Interpretation Code Trace/HPF [facility] UA Auto SS Bilirubin Ql (U) Negative (01/24/22 6:50 AM) Normal Negative [facility] UA Auto SS Calcium oxalate crystals LM Ql (Urine sed) Present (01/24/22 6:50 AM) Normal [facility]A Auto SS Clarity (U) Clear (01/24/22 6:50 AM) Normal Clear [facility]A Auto SS Color (U) Yellow (01/24/22 6:50 AM) Normal Yellow [facility]A Auto SS Crystals LM Ql (Urine sed) Present (01/24/22 6:50 AM) Normal [facility] UA Auto SS Epithelial cells.squamous LM.HPF (Urine sed) [#/Area] 3-4 /HPF Normal 0-2/HPF [facility]A Auto SS Glucose Test strip (U) [Mass/Vol] Negative (01/24/22 6:50 AM) Normal Negative [facility]A Auto SS Hemoglobin Ql (U) 1+ *ABN* (01/24/22 6:50 AM) Invalid Interpretation Code Negative [facility]A Auto SS Ketones (U) [Mass/Vol] Negative (01/24/22 6:50 AM) Normal Negative [facility] UA Auto SS [place].plasma/Lith ium.RBC (Bld) [Mass ratio] 4-20 /HPF Normal 0-3/HPF [facility] UA Auto SS Mucus Ql (Urine sed) 1+ (01/24/22 6:50 AM) Normal [facility] UA Auto SS Nitrite Ql (U) Negative (01/24/22 6:50 AM) Normal Negative [facility] UA Auto SS pH (U) 7.0 *NA* (01/24/22 6:50 AM) Invalid Interpretation Code 5.0 - 9.0 [facility] UA Auto SS Protein (U) [Mass/Vol] Negative (01/24/22 6:50 AM) Normal Negative [facility] UA Auto SS Specific gravity (U) [Rel density] 1.020 *NA* (01/24/22 6:50 AM) Invalid Interpretation Code 1.005 - 1.030 [facility] UA Auto SS UA Spec Desc Clean Catch (01/24/22 6:50 AM) Normal [facility] UA Auto SS Urobilinogen Qn (U) [id number] {Joni'U}/dL Normal 0.0 - 1.0 EU/dL [facility] UA Auto SS WBC Auto Ql (U) Negative (01/24/22 6:50 AM) Normal Negative [facility] UA Auto SS WBC LM.HPF (Urine sed) [#/Area] 0-5 /HPF Normal 0-5/HPF [facility] UA Auto SS Urinalysis - AUTOMATEDon Appearance (U) cloudy [employer] Other Bilirubin Ql (U) moderate [employer] Other Color (U) amauri [facility] Other Glucose Ql (U) Negative [employer] Other Hemoglobin Ql (U) large [employer] Other Ketones Ql (U) trace [employer] Other Leukocyte esterase Test strip Ql (U) trace [facility] Other Nitrite Ql (U) Negative [employer] Other pH (U) 5.0 [pH] [facility] Other Protein Ql (U) 100 [employer] Other Specific gravity (U) [Rel density] >1.030 [facility] Other Urobilinogen (U) [Mass/Vol] 1.0 mg/dL [facility] Other Urinalysis - AUTOMATED [employer] Other Urine Cultureon 01-14-2022 Bacteria identified Cx Nom (U) Reason for Exam Dysuria Urine 50,000 colonies/ml mixed bacterial skin contaminants 2 Days PERFORMED BY: [place] [address] PATHOLOGIST RETAIL CLIENT MANAGER NEGRITO MYLES M.D. [facility] Comment on above: Performed By: #### C UU #### [facility] [address] [place] [address] Bacteria identified Cx Nom (U) [employer] Other TSH+FREE T4on 01-11-2022 Free T4 [Mass/Vol] 1.3 ng/dL Normal 0.8-1.8 [facility] Comment on above: Performed By: #### 5 [id number] #### [facility] [address] Lead Software Development Engineer: Geremias Toney MD TSH Qn 1.12 m[IU]/L Normal 0.40-4.50 [facility] Comment on above: Performed By: #### 5 [id number] #### [facility] [address] Lead Software Development Engineer: Geremias Toney MD CHEMISTRYOrdered By: SYSTEM SYSTEM on 12-07-2021 Phosphate [Mass/Vol] 4.2 mg/dL Normal 1.9 - 4.6 mg/dL [facility] Albumin [Mass/Vol] 3.7 g/dL Normal 3.3 - 5.0 gm/dL [facility] Albumin/Globulin [Mass ratio] 1.2 {ratio} Normal 1.1 - 2.2 [facility] ALP [Catalytic activity/Vol] 129 [iU]/d High 21 - 98 Int._Unit/ L [facility] ALT No additional P-5'-P [Catalytic activity/Vol] 29 [iU]/d Normal 6 - 46 Int._Unit/ L [facility] Anion gap [Moles/Vol] 14 mmol/L Normal 6 - 16 mEq/L [facility] AST [Catalytic activity/Vol] 22 [iU]/d Normal 5 - 43 Int._Unit/ L [facility] Bilirubin [Mass/Vol] 0.9 mg/dL Normal 0.0 - 1.1 mg/dL [facility] Calcium [Mass/Vol] 9.5 mg/dL Normal 8.9 - 11. 1 mg/dL [facility] Chloride [Moles/Vol] 103 mmol/L Normal 101 - 111 mmol/L [facility] Cholesterol [Mass/Vol] 230 mg/dL High 120 - 200 mg/dL [facility] Cholesterol in HDL [Mass/Vol] 75 mg/dL Invalid Interpretation Code [facility] Cholesterol in LDL [Mass/Vol] 154 mg/dL High <=129mg/dL [facility] Cholesterol in VLDL [Mass/Vol] 13 mg/dL Normal 7 - 40 mg/dL [facility] CO2 [Moles/Vol] 27 mmol/L Normal 21 - 31 mmol/L [facility] Creatinine [Mass/Vol] 0.6 mg/dL Normal 0.5 - 1.3 mg/dL [facility] Free T4 [Mass/Vol] 1.03 ng/dL Normal 0.58 - 1.64 ng/dL [facility] GFR/1.73 sq M.predicted among blacks MDRD (S/P/Bld) [Vol rate/Area] mL/min/1.73 m2 Normal >=59mL/min /1.73 m2 [facility] Chem S GFR/1.73 sq M.predicted among non-blacks MDRD (S/P/Bld) [Vol rate/Area] mL/min/1.73 m2 Normal >=59mL/min /1.73 m2 [facility] Chem S Globulin (S) [Mass/Vol] 3.2 g/dL Normal 1.4 - 4.0 gm/dL [facility] Glucose [Mass/Vol] 97 mg/dL Normal 55 - 199 mg/dL [facility] Potassium [Moles/Vol] 4.6 mmol/L Normal 3.5 - 5.3 mmol/L [facility] Protein [Mass/Vol] 6.9 g/dL Normal 6.0 - 7.8 gm/dL [facility] Sodium [Moles/Vol] 139 mmol/L Normal 135 - 145 mmol/L [facility] Triglyceride [Mass/Vol] 66 mg/dL Normal <=149mg/dL [facility] TSH Qn 1.21 m[IU]/L Normal 0.34 - 5.60 mcIU/mL [facility] Urea nitrogen [Mass/Vol] 12 mg/dL Normal 5 - 21 mg/dL [facility] Urea nitrogen/Creatinine [Mass ratio] 20 mg/mg Normal 10 - 20 [facility] COMPREHENSIVE METABOLIC PANE Hitesh 08-31-2021 Albumin [Mass/Vol] 4.2 g/dL Normal 3.6-5.1 [facility] Comment on above: Performed By: #### 1 0231 #### [facility] [place] [address] Lead Software Development Engineer: Geremias Toney MD Albumin/Globulin [Mass ratio] 1.8 {ratio} Normal 1.0-2.5 [facility] Comment on above: Performed By: #### 1 0231 #### [facility] [address] Lead Software Development Engineer: Geremias Toney MD ALP [Catalytic activity/Vol] 132 U/L Normal 37-153 [facility] Comment on above: Performed By: #### 1 0231 #### [facility] [address] Lead Software Development Engineer: Geremias Toney MD ALT [Catalytic activity/Vol] 102 U/L High 6-29 [facility] Comment on above: Performed By: #### 1 0231 #### [facility] [place] [address] Lead Software Development Engineer: Geremias Toney MD AST [Catalytic activity/Vol] 54 U/L High 10-35 [facility] Comment on above: Performed By: #### 1 0231 #### [facility] of [place] [address] Lead Software Development Engineer: Geremias Toney MD Bilirubin [Mass/Vol] 0.6 mg/dL Normal 0.2-1.2 [facility] Comment on above: Performed By: #### 1 0231 #### [facility] of [place] [address] Lead Software Development Engineer: Geremias Toney MD BUN/CREATININE RATIO NOT APPLICABLE Normal 6-22 [facility] Comment on above: Performed By: #### 1 0231 #### [facility] [place] [address] Lead Software Development Engineer: Geremias Toney MD Calcium [Mass/Vol] 9.3 mg/dL Normal 8.6-10.4 [facility] Comment on above: Performed By: #### 1 0231 #### [facility] [place] [address] Lead Software Development Engineer: Geremias Toney MD Chloride [Moles/Vol] 108 mmol/L Normal 98-110 [facility] Comment on above: Performed By: #### 1 0231 #### [facility] of [place] [address] Lead Software Development Engineer: Geremias Toney MD CO2 [Moles/Vol] 28 mmol/L Normal 20-32 [facility] Comment on above: Performed By: #### 1 0231 #### [facility] of [place] [address] Lead Software Development Engineer: Geremias Toney MD Creatinine [Mass/Vol] 0.62 mg/dL Normal 0.50-1.05 [facility] Comment on above: Result Comment: For patients >49 years of age, the reference limit for Creatinine is approximately 13% higher for people identified as -Tajik. Performed By: #### 1 0231 #### [facility] [place] [address] Lead Software Development Engineer: Geremias Toney MD eGFR NON-AFR. TUNISIAN 99 mL/min/1.73m2 Normal > OR = 60 [facility] Comment on above: Performed By: #### 1 1 #### [facility] [place] [address] Lead Software Development Engineer: Geremias Toney MD GFR/1.73 sq M.predicted among blacks MDRD (S/P/Bld) [Vol rate/Area] 114 mL/min/{1.73_m2} Normal > OR = 60 [facility] Comment on above: Performed By: #### 1 1 #### [facility] [place] [address] Lead Software Development Engineer: Geremias Toney MD Globulin (S) [Mass/Vol] 2.4 g/dL Normal 1.9-3.7 [facility] Comment on above: Performed By: #### 1 0231 #### [facility] [place] [address] Lead Software Development Engineer: Geremias Toney MD Glucose [Mass/Vol] 97 mg/dL Normal 65-99 [facility] Comment on above: Result Comment: Fasting reference interval Performed By: #### 1 0231 #### [facility] [place] [address] Lead Software Development Engineer: Geremias Toney MD Potassium [Moles/Vol] 3.7 mmol/L Normal 3.5-5.3 [facility] Comment on above: Performed By: #### 1 0231 #### [facility] [place] [address] Lead Software Development Engineer: Geremias Toney MD Protein [Mass/Vol] 6.6 g/dL Normal 6.1-8.1 [facility] Comment on above: Performed By: #### 1 0231 #### [facility] of [address], [address] [place] [address] Lead Software Development Engineer: Geremias Toney MD Sodium [Moles/Vol] 143 mmol/L Normal 135-146 [facility] Comment on above: Performed By: #### 1 0231 #### [facility] of [address], [address] [place] [address] Lead Software Development Engineer: Geremias Toney MD Urea nitrogen [Mass/Vol] 14 mg/dL Normal 7-25 [facility] Comment on above: Performed By: #### 1 1 #### [facility] of [address], [address] [place] [address] Lead Software Development Engineer: Geremias Toney MD COVID Quick Testingon 2020 Result Negative [facility] Other BASIC METABOLIC PANEL W/O CA on 02-09-2021 BUN/CREATININE RATIO NOT APPLICABLE Normal 6-22 [facility] Comment on above: Performed By: #### 5 [id number], [id number] #### [facility] of [address], [address] [place] [address] Lead Software Development Engineer: Geremias Toney MD Chloride [Moles/Vol] 103 mmol/L Normal 98-110 [facility] Comment on above: Performed By: #### 5 [id number], [id number] #### [facility] of [address], [address] [place] [address] Lead Software Development Engineer: Geremias Toney MD CO2 [Moles/Vol] 29 mmol/L Normal 20-32 [facility] Comment on above: Performed By: #### 5 [id number], [id number] #### [facility] of [address], [address] [place] [address] Lead Software Development Engineer: Geremias Toney MD Creatinine [Mass/Vol] 0.64 mg/dL Normal 0.50-1.05 [facility] Comment on above: Result Comment: For patients >49 years of age, the reference limit for Creatinine is approximately 13% higher for people identified as -Tajik. Performed By: #### 5 [id number], [id number] #### [facility] of [address], [address] [place] [address] Lead Software Development Engineer: Geremias Toney MD eGFR NON-AFR. TUNISIAN 98 mL/min/1.73m2 Normal > OR = 60 [facility] Comment on above: Performed By: #### 5 [id number], 92538 #### [facility] of [address], [address] [place] [address] Lead Software Development Engineer: Geremias Toney MD GFR/1.73 sq M.predicted among blacks MDRD (S/P/Bld) [Vol rate/Area] 114 mL/min/{1.73_m2} Normal > OR = 60 [facility] Comment on above: Performed By: #### 5 [id number], [id number] #### [facility] of [address], [address] [place] [address] Lead Software Development Engineer: Geremias Toney MD Glucose [Mass/Vol] 90 mg/dL Normal 65-99 [facility] Comment on above: Result Comment: Fasting reference interval Performed By: #### 5 [id number], [id number] #### [facility] of [address], [address] [place] [address] Lead Software Development Engineer: Geremias Toney MD Potassium [Moles/Vol] 4.4 mmol/L Normal 3.5-5.3 [facility] Comment on above: Performed By: #### 5 [id number], [id number] #### [facility] of [address], [address] [place] [address] Lead Software Development Engineer: Geremias Toney MD Sodium [Moles/Vol] 143 mmol/L Normal 135-146 [facility] Comment on above: Performed By: #### 5 [id number], [id number] #### [facility] of [address], [address] [place] [address] Lead Software Development Engineer: Geremias Toney MD Urea nitrogen [Mass/Vol] 17 mg/dL Normal 7-25 [facility] Comment on above: Performed By: #### 5 [id number], 37999 #### [facility] of [address], [address] [place] [address] Lead Software Development Engineer: Geremias Toney MD TSH+FREE T4on 02-09-2021 Free T4 [Mass/Vol] 1.1 ng/dL Normal 0.8-1.8 [facility] Comment on above: Performed By: #### 5 [id number], [id number] #### [facility] [address] [place] [address], [address] Lead Software Development Engineer: Geremias Toney MD TSH Qn 0.59 m[IU]/L Normal 0.40-4.50 [facility] Comment on above: Performed By: #### 5 [id number], [id number] #### [facility] [address], [address] [place] [address] Lead Software Development Engineer: Geremias Toney MD Vital Signs Date Time Vital Sign Value Performing Clinician Facility 12-29-2023 15:08-0400 Body height 165.1 cm [facility] 12-29-2023 15:08-0400 Body mass index (BMI) [Ratio] 33.6 kg/m2 [facility] 12-29-2023 15:08-0400 Body weight 91.62 kg [facility] 12-29-2023 15:08-0400 Diastolic blood pressure 96 mm[Hg] [facility] 12-29-2023 15:08-0400 Heart rate 81 /min [facility] 12-29-2023 15:08-0400 SaO2% (BldA) [Mass fraction] 92 % [facility] 12-29-2023 15:08-0400 Systolic blood pressure 157 mm[Hg] [facility] 11-25-2023 13:43-0400 Blood Pressure Location FLORINDA BRAUN [facility] 11-25-2023 13:43-0400 Body temperature 98.96 [degF] FLORINDA BRAUN [facility] 11-25-2023 13:43-0400 Diastolic blood pressure 86 mm[Hg] FLORINDA BRAUN [facility] 11-25-2023 13:43-0400 Heart rate 82 /min FLORINDA BRAUN [facility] 11-25-2023 13:43-0400 Systolic blood pressure 132 mm[Hg] FLORINDA BRAUN [facility] 06-15-2023 10:10-0400 Body height 165.1 cm Maria Isabel Leonie Other [facility] Other 06-15-2023 10:10-0400 Body mass index (BMI) [Ratio] 29.95 kg/m2 Maria Isabel Leonie Other [facility] Other 06-15-2023 10:10-0400 Body temperature 98.3 [degF] Maria Isabel Leonie Other [facility] Other 06-15-2023 10:10-0400 Body weight 81.65 kg Maria Isabel Leonie Other [facility] Other 06-15-2023 10:10-0400 Diastolic blood pressure 75 mm[Hg] Maria Isabel Hadley Other [facility] Other 06-15-2023 10:10-0400 SaO2% (BldA) [Mass fraction] 97 % Maria Isabel Leonie Other [facility] Other 06-15-2023 10:10-0400 Systolic blood pressure 140 mm[Hg] Maria Isabel Leonie Other [facility] Other 06-02-2023 10:05-0400 Body height 165.1 cm Maria Isabelnayla Hadley Other [facility] Other 06-02-2023 10:05-0400 Body mass index (BMI) [Ratio] 30.78 kg/m2 Maria Isabel Hadley Other [facility] Other 06-02-2023 10:05-0400 Body temperature 97.8 [degF] Maria Isabel Hadley Other [facility] Other 06-02-2023 10:05-0400 Body weight 83.92 kg Maria Isabel Hadley Other [facility] Other 06-02-2023 10:05-0400 Diastolic blood pressure 77 mm[Hg] Maria Isabel Hadley Other [facility] Other 06-02-2023 10:05-0400 Respiratory rate 18 /min Maria Isabel Hadley Other [facility] Other 06-02-2023 10:05-0400 SaO2% (BldA) [Mass fraction] 96 % Maria Isabel Hadley Other [facility] Other 06-02-2023 10:05-0400 Systolic blood pressure 131 mm[Hg] Maria Isabel Hadley Other [facility] Other 12-23-2022 14:30-0400 Body height 165.1 cm Caitlyn Wilkinsonalissa Other [facility] Other 12-23-2022 14:30-0400 Body mass index (BMI) [Ratio] 31.7 kg/m2 Caitlyn Wilkinsonalissa Other [facility] Other 12-23-2022 14:30-0400 Body weight 86.41 kg Caitlyn Long Other [facility] Other 12-23-2022 14:30-0400 Diastolic blood pressure 77 mm[Hg] Caitlyn Long Other [facility] Other 12-23-2022 14:30-0400 SaO2% (BldA) [Mass fraction] 97 % Caitlyn Long Other [facility] Other 12-23-2022 14:30-0400 Systolic blood pressure 138 mm[Hg] Caitlyn Long Other [facility] Other 11-25-2022 09:52-0400 Body temperature 98.6 [degF] Charan Lackeye [facility] 11-25-2022 09:52-0400 Diastolic blood pressure 68 mm[Hg] Charan Lackeye [facility] 11-25-2022 09:52-0400 Heart rate 89 /min Charan Lackeye [facility] 11-25-2022 09:52-0400 Respiratory rate 18 /min Charan Lackeye [facility] 11-25-2022 09:52-0400 SaO2% (BldA) [Mass fraction] 93 % Charan Lackeye [facility] 11-25-2022 09:52-0400 Systolic blood pressure 138 mm[Hg] Charan Lackeye [facility] 11-20-2022 09:15-0500 Body height 165.1 cm Maria Isabel Hadley Other [facility] Other 11-20-2022 09:15-0500 Body mass index (BMI) [Ratio] 31.45 kg/m2 Maria Isabel Hadley Other [facility] Other 11-20-2022 09:15-0500 Body temperature 98.5 [degF] Maria Isabel Hadley Other [facility] Other 11-20-2022 09:15-0500 Body weight 85.73 kg Maria Isabel Hadley Other [facility] Other 11-20-2022 09:15-0500 Respiratory rate 18 /min Maria Isabel Hadley Other [facility] Other 11-20-2022 09:15-0500 SaO2% (BldA) [Mass fraction] 96 % Maria Isabel Hadley Other [facility] Other 11-19-2022 11:09-0500 Blood Pressure Location FLORINDA KADE [facility] 11-19-2022 11:09-0500 Diastolic blood pressure 78 mm[Hg] FLORINDA KADE [facility] 11-19-2022 11:09-0500 Heart rate 80 /min FLORINDA KADE [facility] 11-19-2022 11:09-0500 Systolic blood pressure 126 mm[Hg] FLORINDA KADE [facility] 06-24-2022 14:30-0400 Body height 165.1 cm Caitlyn Long Other [facility] Other 06-24-2022 14:30-0400 Body mass index (BMI) [Ratio] 29.93 kg/m2 Caitlyn Long Other [facility] Other 06-24-2022 14:30-0400 Body temperature 96.8 [degF] Caitlyn Long Other [facility] Other 06-24-2022 14:30-0400 Body weight 81.6 kg Caitlyn Long Other [facility] Other 06-24-2022 14:30-0400 Diastolic blood pressure 84 mm[Hg] Caitlyn Long Other [facility] Other 06-24-2022 14:30-0400 SaO2% (BldA) [Mass fraction] 97 % Caitlyn Long Other [facility] Other 06-24-2022 14:30-0400 Systolic blood pressure 128 mm[Hg] Caitlyn Long Other [facility] Other 04-19-2022 08:53-0400 Blood Pressure Location Justin YI [facility] 04-19-2022 08:53-0400 Diastolic blood pressure 83 mm[Hg] Justin YI [facility] 04-19-2022 08:53-0400 Heart rate 74 /min Justin YI [facility] 04-19-2022 08:53-0400 Respiratory rate 16 /min Justin YI [facility] 04-19-2022 08:53-0400 Systolic blood pressure 143 mm[Hg] Justin YI [facility] Lisa 03-31-2022 14:00-0400 Body temperature 98.42 [degF] [facility] 03-31-2022 14:00-0400 Diastolic blood pressure 60 mm[Hg] [facility] 03-31-2022 14:00-0400 Heart rate 68 /min [facility] 03-31-2022 14:00-0400 Mean blood pressure 82 mm[Hg] [facility] 03-31-2022 14:00-0400 Respiratory rate 11 /min [facility] 03-31-2022 14:00-0400 SaO2% (BldA) [Mass fraction] 97 % [facility] 03-31-2022 14:00-0400 Systolic blood pressure 126 mm[Hg] [facility] 03-31-2022 01:00-0400 Body temperature 98.6 [degF] [facility] 03-31-2022 01:00-0400 Diastolic blood pressure 67 mm[Hg] [facility] 03-31-2022 01:00-0400 Mean blood pressure 86 mm[Hg] [facility] 03-31-2022 01:00-0400 Respiratory rate 11 /min [facility] 03-31-2022 01:00-0400 SaO2% (BldA) [Mass fraction] 97 % [facility] 03-31-2022 01:00-0400 Systolic blood pressure 125 mm[Hg] [facility] 03-31-2022 00:00-0400 Body temperature 98.24 [degF] [facility] 03-31-2022 00:00-0400 Diastolic blood pressure 76 mm[Hg] [facility] 03-31-2022 00:00-0400 Heart rate 78 /min [facility] 03-31-2022 00:00-0400 Mean blood pressure 97 mm[Hg] [facility] 03-31-2022 00:00-0400 Respiratory rate 12 /min [facility] 03-31-2022 00:00-0400 Systolic blood pressure 140 mm[Hg] [facility] 03-30-2022 22:55-0400 Blood Pressure Location [facility] 03-30-2022 21:24-0400 Heart rate 70 /min [facility] 03-30-2022 21:24-0400 Respiratory rate 18 /min [facility] 01-24-2022 18:00-0400 Hourly Rounding [facility] 01-24-2022 18:00-0400 Promise to Return [facility] 01-24-2022 15:52-0400 Body temperature 98.06 [degF] [facility] 01-24-2022 15:52-0400 Diastolic blood pressure 80 mm[Hg] [facility] 01-24-2022 15:52-0400 Heart rate 68 /min [facility] 01-24-2022 15:52-0400 Mean blood pressure 98 mm[Hg] [facility] 01-24-2022 15:52-0400 SaO2% (BldA) [Mass fraction] 94 % [facility] 01-24-2022 15:52-0400 Systolic blood pressure 133 mm[Hg] [facility] 01-24-2022 15:39-0400 SaO2% (BldA) [Mass fraction] 95 % [facility] 01-24-2022 14:54-0400 Body temperature 97.88 [degF] [facility] 01-24-2022 14:54-0400 Diastolic blood pressure 77 mm[Hg] [facility] 01-24-2022 14:54-0400 Heart rate 64 /min [facility] 01-24-2022 14:54-0400 Mean blood pressure 95 mm[Hg] [facility] 01-24-2022 14:54-0400 Respiratory rate 15 /min [facility] 01-24-2022 14:54-0400 SaO2% (BldA) [Mass fraction] 95 % [facility] 01-24-2022 14:54-0400 Systolic blood pressure 132 mm[Hg] [facility] 01-24-2022 14:45-0400 Diastolic blood pressure 82 mm[Hg] [facility] 01-24-2022 14:45-0400 Heart rate 65 /min [facility] 01-24-2022 14:45-0400 Mean blood pressure 101 mm[Hg] [facility] 01-24-2022 14:45-0400 Respiratory rate 13 /min [facility] 01-24-2022 14:45-0400 Systolic blood pressure 140 mm[Hg] [facility] 01-24-2022 14:40-0400 Body temperature 97.16 [degF] [facility] 01-24-2022 14:40-0400 Mean blood pressure 98 mm[Hg] [facility] 01-24-2022 14:40-0400 Respiratory rate 16 /min [facility] 01-24-2022 14:29-0400 Body temperature 96.44 [degF] [facility] Comment on above: Result Comment: warm blanket applied 01-24-2022 11:00-0400 Heart rate 74 /min [facility] 01-24-2022 09:39-0400 Heart rate 69 /min [facility] 01-24-2022 08:30-0400 Heart rate 68 /min Bert [facility] 01-24-2022 06:07-0400 Body temperature 97.7 [degF] Bert [facility] 01-14-2022 12:45-0400 Body height 165.1 cm Maria Isabel Garciamond Other [employer] [employer] Other 01-14-2022 12:45-0400 Body mass index (BMI) [Ratio] 30.78 kg/m2 Maria Isabel Leonie Other [employer] Other 01-14-2022 12:45-0400 Body temperature 97.3 [degF] Maria Isabel Leonie Other [employer] Other 01-14-2022 12:45-0400 Body weight 83.92 kg Maria Isabel Leonie Other [employer] Other 01-14-2022 12:45-0400 Diastolic blood pressure 83 mm[Hg] Maria Isabel Leonie Other [facility] Other 01-14-2022 12:45-0400 Respiratory rate 18 /min Maria Isabel Leonie Other [employer] Other 01-14-2022 12:45-0400 SaO2% (BldA) [Mass fraction] 98 % Maria Isabel Leonie Other [facility] Other 01-14-2022 12:45-0400 Systolic blood pressure 149 mm[Hg] Maria Isabel Leonie Other [facility] Other 07-12-2021 11:30-0400 Body height 165.1 cm Kristina Donald Other [employer] Other 07-12-2021 11:30-0400 Body mass index (BMI) [Ratio] 28.79 kg/m2 Kristina Donald Other [employer] Other 07-12-2021 11:30-0400 Body temperature 97.4 [degF] Kristina Donald Other [employer] Other 07-12-2021 11:30-0400 Body weight 78.47 kg Kristina Donald Other [employer] Other 07-12-2021 11:30-0400 Respiratory rate 18 /min Kristina Donald Other [employer] Other 07-12-2021 11:30-0400 SaO2% (BldA) [Mass fraction] 98 % Kristina Donald Other [employer] Other Encounters Encounter Date Encounter Type Care Provider Facility Start: 03-08-2025 ambulatory FLORINDA Mcclendon ty:JAMIE Gonzalez Start: 01-28-2024 End: 01-28-2024 ambulatory [facility] Start: 01-12-2024 End: 01-12-2024 ambulatory ANNIE Vasu TIMMIS Not Available Start: 12-29-2023 End: 12-29-2023 ambulatory [facility] Work Phone: Start: 12-29-2023 End: 12-29-2023 Patient encounter procedure [facility] Work Phone: Start: 12-17-2023 Refill Adore Calderon Sandeepdebbi [employer]LECT[employer]ICAL [employer]EM[employer] Work Phone: [facility] - [facility] Comment on above: Migraine without aur a, not intractable, without status migrainosus Allergic rhinitis, u nspecified Start: 12-01-2023 End: 12-01-2023 ambulatory TYLER E RAMBASEK Not Available Start: 11-25-2023 End: 11-26-2023 ambulatory FLORINDA BRAUN Facility:[facility] Start: 11-25-2023 End: 11-25-2023 Patient encounter procedure FLORINDA BRAUN [facility] Start: 11-18-2023 End: 11-19-2023 ambulatory Krzysztof Reddy Facility:[facility] Start: 11-18-2023 End: 11-18-2023 Patient encounter procedure FLORINDA BRAUN [facility] Start: 11-18-2023 End: 11-19-2023 ambulatory BARBARA [facility] Start: 11-07-2023 Orders Only Barbara Renetta Peters ELECTRICAL FOREMAN-FREIGHT CHECKER Work Phone: [facility] Comment on above: Abnormal mammogram o f left breast (Primary Dx) Start: 11-07-2023 Refill Barbara Renetta Fran ELECTRICAL FOREMAN[employer]REIGHT CHECKER Work Phone: [facility] Start: 11-05-2023 End: 11-06-2023 ambulatory BARBARA [facility] Start: 10-20-2023 End: 10-20-2023 ambulatory TYLER E RAMBASEK Not Available Start: 10-07-2023 Orders Only Barbara Renetta Fran [employer]EM[employer] CHECK[employer] Work Phone: [facility] Comment on above: Encounter for screen ing mammogram for malignant neoplasm of breast (Primary Dx) Start: 09-29-2023 End: 09-29-2023 ambulatory TYLER E RAMBASEK Not Available Start: 09-17-2023 Refill Barbara Renetta Fran [employer]LECTRICAL FOREMAN[employer]IGHT CHECKER Work Phone: [facility] Start: 06-15-2023 End: 06-15-2023 ambulatory Maria Isabel Leonie Other [employer] Other Start: 06-15-2023 Office outpatient vi sit 15 minutes Maria Isabel Leonie [facility] Start: 06-02-2023 End: 06-02-2023 ambulatory Maria Isabel Elonie Other [employer] [employer] Other Start: 06-02-2023 Office outpatient vi sit 15 minutes Maria Isabel Leonie [facility] Start: 12-23-2022 End: 12-23-2022 ambulatory Kamal Chaban [facility] [employer] Other Start: 12-23-2022 Office outpatient vi sit 15 minutes Kamal Chaban [facility] Start: 12-17-2022 End: 12-18-[address] GERA TERESA Facility: Start: 11-25-2022 End: 11-25-2022 Emergency department patient visit Charan Ro [facility] Start: 11-20-2022 End: 11-20-2022 ambulatory Maria Isabel Leonie Other [facility] [employer] Other Start: 11-20-2022 Office outpatient vi sit 15 minutes Maria Isabel Leonie [facility] Start: 11-19-2022 End: 11-19-2022 Lab Drop off BARBARA PETERS [facility] Start: 11-19-2022 End: 11-19-2022 Patient encounter procedure FLORINDA BRAUN [facility] Start: 09-11-2022 End: 09-12-[address] JUSTIN YI . Facility: Start: 08-22-2022 End: 08-22-2022 ambulatory Kamclayton Chaban Facility:[facility] Start: 08-22-2022 End: 08-22-2022 ambulatory DO Geramojgan Kimlong Work Phone: [facility] Work Phone: Start: 08-22-2022 End: 08-22-2022 Patient encounter procedure DO Gera Kimlong Work Phone: [facility] Start: 06-24-2022 Office outpatient ne w 30 minutes Kamal Ethan [facility] Start: 06-24-2022 End: 06-24-2022 ambulatory DO Gera Kimlong Work Phone: [facility] [employer] Other Start: 06-24-2022 End: 06-24-2022 Patient encounter procedure DO Gera Kimlong Work Phone: [facility] Start: 04-23-2022 End: 04-24-[address] GERA TERESA Facility:[facility] Start: 04-19-2022 End: 04-19-2022 Patient encounter procedure Justin YI [facility] Start: 03-30-2022 End: 03-31-2022 Emergency department patient visit Iraida Leone Abilio [facility] Start: 02-28-2022 End: [address] ARVIN MONTEIRO Facility:[facility] Start: 02-27-2022 End: 02-27-[address] JHONY Tabares Facility:[facility] Start: 02-04-2022 End: 02-04-2022 Patient encounter procedure Misael MAHER [facility] Start: 01-30-2022 End: 01-30-2022 Patient encounter procedure Nohemi Garcia [facility] Start: 01-24-2022 ambulatory Facility:1 [id number] Start: 01-24-2022 End: 01-24-2022 Observation Bert MENARD [facility] Start: 01-14-2022 End: 01-14-2022 [facility] Start: 01-14-2022 Office outpatient vi sit 15 minutes Maria Isabel Hadley [facility] Start: 12-07-2021 End: 12-07-2021 Patient encounter procedure BARBARA MCKNIGHTUCH [facility] Start: 07-12-2021 Office outpatient vi sit 15 minutes Kristina Donald [facility] Procedures Date Procedure Procedure Detail Performing Clinician Start: 11-05-2023 Mammography Barbaraliz Mcknightu [employer]LECTRICAL FOREMAN[employer] CHECKER Work Phone: Start: 07-24-2023 Adult depression scr eening assessment Barbaralzi Mcknightuch ELECTRICAL FOREMAN-[employer]REIGHT CHECKER Work Phone: Start: 11-02-2022 Mammography Barbara Rodgers ELECTRICAL FOREMAN-[employer]IGHT CHECKER Work Phone: Start: 01-24-2022 Cystoscopy Bert Leone Start: 01-08-2021 Endoscopy and biopsy of upper gastrointestinal tract Krzysztof Akkina Start: 10-14-2019 Colonoscopy Krzysztof Akki na Appendectomy Krzysztof Akkina Cholecystectomy Krzysztof Akkina History of operative procedure on knee Krzysztof Akkina Comment on above: Torn miniscus. Repair of diaphragma tic hiatal hernia by thoracoabdominal approach Krzysztof Akkina Total hysterectomy Krzysztof Akk ozzy Plan of Treatment Date Care Activity Detail Author Start: 11-05-2024 Adult BMI Screening Adult BMI Screen ing [facility] Start: 11-05-2024 Screening for malign ant neoplasm of breast Mammogram [facility] Start: 07-24-2024 Adult BMI Screening Adult BMI Screen ing [facility] Start: 07-24-2024 Depression Screening Depression Scre ening [facility] Start: 07-24-2024 Tobacco Screening Tobacco Screening [facility] Start: 05-16-2024 Influenza vaccination Influenza Vacc ine [facility] Start: 04-15-2024 Adult BMI Follow Up Plan Adult BMI Follow Up Plan [facility] Comment on above: Postponed from 03/01 (Not Indicated) Start: 04-08-2024 DTaP,Tdap and Td Vaccines (2 - Td or Tdap) DTaP,Tdap and Td Vaccines (2 - Td or Tdap) [facility] Start: 01-28-2024 End: 01-28-2024 Patient encounter procedure 01/28/2024 4:00 PM EDT Office Visit [facility] Internal Medicine - Family Medicine [address] [place] [address] Barbara Peters, ELECTRICAL FOREMAN-FREIGHT CHECKER [address] [facility] [address] [place] [address] [facility] - Family [facility] Start: 01-22-2024 End: 01-22-2024 Patient encounter procedure 01/22/2024 4:00 PM EDT Office Visit [facility] - Family Medicine [address] [place] [address] Barbara Peters, ELECTRICAL FOREMAN-FREIGHT CHECKER [address] [facility] [place] [address] [facility] - Family [facility] Start: 11-18-2023 End: 11-18-2023 Patient encounter procedure 11/18/2023 11:00 AM EST Appointment [facility] - Ultrasound [address] [place] [address] [facility] Start: 11-07-2023 End: 11-07-2024 MG Breast duct - left Views W contrast intra duct Mammography diagnostic unilateral left with CAD Imaging Routine Abnormal mammogram of left breast Expected: 11/07/2023, Expires: 11/07/2024 [facility] Work Phone: Comment on above: Expected: 11/07/2023 , Expires: 11/07/2024 Start: 11-07-2023 End: 11-07-2024 US Breast - left limited Ultrasound breast limited left Imaging Routine Abnormal mammogram of left breast Expected: 11/07/2023, Expires: 11/07/2024 [employer] Comment on above: Expected: 11/07/2023 , Expires: 11/07/2024 Start: 11-05-2023 End: 11-05-2023 Patient encounter procedure 11/05/2023 2:45 PM EST Appointment [facility] - Mammogram DEXA [address] [place] [id number] [facility] Start: 11-02-2023 Screening for malign ant neoplasm of [facility] Start: 10-07-2023 End: 10-07-2024 DBT Breast - bilateral screening Mammography screening bilateral with CAD Imaging Routine Encounter for screening mammogram for malignant neoplasm of breast Expected: 10/07/2023, Expires: 10/07/2024 [facility] Work Phone: Comment on above: Expected: 10/07/2023 , Expires: 10/07/2024 Immunizations Immunization Date Immunization Notes Care Provider Jocelyn huertas 08-06-2023 zoster vaccine recombinant Barbara Peters ELECTRICAL FOREMAN-FREIGHT CHECKER [facility] Phone: [facility] 06-19-2023 Influenza Vaccine, Quadrivalent, Adjuvanted Barbara Fran ELECTRICAL FOREMAN-FREIGHT CHECKER Work Phone: [facility] 06-19-2023 influenza virus vaccine, unspecified formulation FLORINDA BRAUN [facility] 06-19-2023 influenza, injectabl e, quadrivalent, preservative free Barbara Fran ELECTRICAL FOREMAN-FREIGHT CHECKER Work Phone: [facility] 04-11-2023 Pneumococcal Conjuga te 20-valent Barbara Fran ELECTRICAL FOREMAN-FREIGHT CHECKER Work Phone: [facility] 04-11-2023 zoster vaccine recombinant Barbara Fran ELECTRICAL FOREMAN-FREIGHT CHECKER Work Phone: [facility] 06-27-2022 influenza virus vaccine, unspecified formulation FLORINDA KADE [facility] 06-27-2022 influenza, injectabl e, quadrivalent, preservative free Barbara Fran ELECTRICAL FOREMAN-FREIGHT CHECKER Work Phone: [facility] 06-27-2022 influenza, live, intranasal, quadrivalent Barbara Fran ELECTRICAL FOREMAN-FREIGHT CHECKER Work Phone: [facility] 09-27-2021 SARS-CoV-2 (COVID-19 ) mRNA-1273 vaccine FLORINDA KADE [facility] 06-27-2021 influenza virus vaccine, unspecified formulation FLORINDA KADE [facility] 06-27-2021 influenza, injectabl e, quadrivalent, preservative free Barbara Fran ELECTRICAL FOREMAN-FREIGHT CHECKER Work Phone: [facility] 06-02-2021 Toradol 30 mg/ml Kristina tillman Other [employer] Other 12-08-2020 SARS-CoV-2 (COVID-19 ) mRNA-1273 vaccine FLORINDA KADE [facility] Comment on above: Result Comment: 2023: TPV23 02-24-2021 SARS-CoV-2 (COVID-19 ) mRNA-[id number] vaccine FLORINDA BRAUN [facility] Comment on above: Result Comment: 2023: [id number] 06-16-2020 influenza virus vaccine, unspecified formulation FLORINDA BRAUN [facility] 06-16-2020 influenza, injectabl e, quadrivalent, preservative free Barbara Fran ELECTRICAL FOREMAN-FREIGHT CHECKER Work Phone: [facility] [employer] [facility] 06-22-2019 PROMETHAZINE (Phenergan) up to 50 mg Kristina Shabana Other [employer] Other 06-22-2019 Toradol per 15 mg Kristina Shabana Other [employer] Other 06-08-2019 influenza virus vaccine, unspecified formulation FLORINDA BRAUN [facility] 06-08-2019 influenza, injectabl e, quadrivalent, preservative free Barbara Fran ELECTRICAL FOREMAN-FREIGHT CHECKER Work Phone: [facility] [employer] [facility] 05-10-2018 influenza, injectabl e, quadrivalent, contains preservative Barbara Fran ELECTRICAL FOREMAN-FREIGHT CHECKER Work Phone: [facility] 05-09-2018 influenza virus vaccine, unspecified formulation FLORINDA KADE [facility] 05-09-2018 influenza, injectabl e, quadrivalent, preservative free Barbara Fran ELECTRICAL FOREMAN-FREIGHT CHECKER Work Phone: [facility] 05-09-2017 influenza virus vaccine, unspecified formulation FLORINDA KADE [facility] 05-09-2017 influenza, injectabl e, quadrivalent, preservative free Barbara Fran ELECTRICAL FOREMAN-FREIGHT CHECKER Work Phone: [facility] [employer] [facility] 07-10-2016 Toradol per 15 mg Kristina Shabana Other [employer] Other 07-10-2016 PROMETHAZINE (Phenergan) up to 50 mg Kristina Shabana Other [employer] Other 06-13-2016 influenza virus vaccine, unspecified formulation FLORINDA KADE [facility] 06-13-2016 influenza, seasonal, injectable, preservative free Barbara Fran ELECTRICAL FOREMAN-FREIGHT CHECKER Work Phone: [facility] 06-28-2015 influenza virus vaccine, unspecified formulation FLORINDA KADE [facility] 06-28-2015 influenza, seasonal, injectable, preservative free Barbara Fran ELECTRICAL FOREMAN-FREIGHT CHECKER Work Phone: [facility] 04-08-2014 tetanus toxoid, reduced diphtheria toxoid, and acellular pertussis vaccine, adsorbed Barbara Fran ELECTRICAL FOREMAN-FREIGHT CHECKER Work Phone: [facility] 09-06-2013 influenza virus vaccine, unspecified formulation Barbara Fran ELECTRICAL FOREMAN-FREIGHT CHECKER Work Phone: [facility] 09-06-2013 influenza, unspecifi ed formulation FLORINAD KADE [facility] Payers Date Payer Category Payer Self-pay [id number] 2018 Unknown [employer] [id number] 2018-Present [phone] [address] [place] [address] [id number] 1962 Unknown [id number] [id number]6 1962 Unknown [id number] 2.16.840.1.921242.3.579.2.593 1962 Unknown [id number] 2.16.840.1.367034.3.579.2.593 1962 Unknown [id number] 2.16.840.1.523532.3.579.2.593 1962 Unknown [id number] 2.16.840.1.899569.3.579.2.593 1962 Unknown [id number] 2.16.840.1.232125.3.579.2.593 1962 Unknown [id number] 2.16.840.1.763994.3.579.2.128 6 1962 Unknown [id number] 2.16.840.1.551770.3.579.2.128 6 1962 Unknown [id number] 2.16.840.1.032504.3.579.2.125 9 1962 Unknown [id number] 2.16.840.1.214048.3.579.2.125 9 1962 Unknown [id number] 2.16.840.1.361262.3.579.2.125 9 1962 Unknown [id number] 2.16.840.1.761833.3.579.2.125 9 1962 Unknown [id number] 2.16.840.1.514160.3.579.2.727 1962 Unknown [id number] 2.16.840.1.824950.3.579.2.727 1962 Unknown [id number] 2.16.840.1.471704.3.579.2.727 1962 Unknown [id number] 2.16.840.1.064417.3.579.2.727 1962 Unknown [id number] 2.16.840.1.353553.3.579.2.128 6 1959 Unknown [id number] 2.16.840.1.831969.19 Unknown [id number] 2.16.840.1.847767.3.579.2.531 Unknown [id number] 2.16.840.1.989404.3.579.2.531 Unknown [id number] 2.16.840.1.823692.3.579.2.531 Unknown [id number] 2.16.840.1.774243.3.579.2.531 Social History Date Type Detail Facility Start: 01-30-2021 End: 10-25-2022 Tobacco smoking status Ex-smoker (finding) [facility] [employer] Other Start: 10-23-2022 End: 07-24-2023 Sex Assigned At Female [facility] [employer] Other Start: 1960 Sex Assigned At Female [facility] Start: 10-11-2018 End: 11-19-2022 Tobacco smoking status Never smoked tobacco (finding) [facility] Tobacco smoking status Never [facility] History of tobacco use Current smoker [facility] Start: 10-25-2022 Tobacco use and exposure Smokeless tobacco non-user [facility] Start: 10-23-2022 End: 07-24-2023 History of Social function [facility] Do you belong to any clubs or organizations such as protestant groups, unions, fraternal or athletic groups, or school groups? No [facility] Are you now , , , , never or living with a partner? [facility] How often to you hav e a drink containing alcohol? Never [facility] How hard is it for y ou to pay for the very basics like food, housing, medical care, and heating Not very hard [facility] [employer] System Do you feel stress - tense, restless, nervous, or anxious, or unable to sleep at night because your mind is troubled all the time - these days [OSQ] To some extent [employer] Start: 10-23-2022 Education 21 [employer] Start: 1960 Sex Assigned At Not on file [employer] [facility] Medical Equipment Procedure Code Equipment Code Equipment Origin al Text Equipment Identifier Dates FDA Start: 01-24-2022 FDA Start: 01-24-2022 FDA Start: 01-24-2022 CYSTOSCOPY RETROGRADE STENT INSERTION Misael MAHER MD 01/24/22 Unknown Ureter R FDA Start: 01-24-2022 CYSTOSCOPY RETROGRADE STENT INSERTION Misael MAHER MD 01/24/22 Unknown Ureter R FDA Start: 01-24-2022 CYSTOSCOPY RETROGRADE STENT INSERTION Misael MAHER MD 01/24/22 Unknown Ureter R FDA Start: 01-24-2022 CYSTOSCOPY RETROGRADE STENT INSERTION Misael MAHER MD 01/24/22 Unknown Ureter R FDA Start: 01-24-2022 CYSTOSCOPY RETROGRADE STENT INSERTION Misael MAHER MD 01/24/22 Unknown Ureter R FDA Start: 01-24-2022 CYSTOSCOPY RETROGRADE STENT INSERTION Misael MAHER MD 01/24/22 Unknown Ureter R FDA Start: 01-24-2022 CYSTOSCOPY RETROGRADE STENT INSERTION Misael MAHER MD 01/24/22 Unknown Ureter R FDA Start: 01-24-2022 CYSTOSCOPY RETROGRADE STENT INSERTION Misael MAHER MD 01/24/22 Unknown Ureter R FDA Start: 01-24-2022 Functional Status Date Assessment Result Facility 11-25-2023 Functional Status N/A [facility] 11-25-2022 Functional Status N/A [facility] 11-19-2022 Functional Status Yes [facility] 04-19-2022 Functional Status N/A [facility] 03-30-2022 Functional Status N/A [facility] Clinical Notes 07-12-2021 to 11-25-2023 Barbara Peters, ELECTRICAL FOREMAN-FREIGHT CHECKER - 11/07/2023 9:03 AM EST Note Date & Type Note Facility 11-25-2023 Hospital Discharg e instructions Patient Education 11/25/2023 14:47:21 Kidney Stones, [id number] Kidney Stones Kidney stones are rock-like masses that form inside of the kidneys. Kidneys are organs that make pee (urine). A kidney stone may move into other parts of the urinary tract, including: The tubes that connect the kidneys to the bladder (ureters). The bladder. The tube that carries urine out of the body (urethra). Kidney stones can cause very bad pain and can block the flow of pee. The stone usually leaves your body (passes) through your pee. You may need to have a doctor take out the stone. What are the causes? Kidney stones may be caused by: A condition in which certain glands make too much parathyroid hormone (primary hyperparathyroidism). A buildup of a type of crystals in the bladder made of a chemical called uric acid. The body makes uric acid when you eat certain foods. Narrowing (stricture) of one or both of the ureters. A kidney blockage that you were born with. Past surgery on the kidney or the ureters, such as gastric bypass surgery. What increases the risk? You are more likely to develop this condition if: You have had a kidney stone in the past. You have a family history of kidney stones. You do not drink enough water. You eat a diet that is high in protein, salt (sodium), or sugar. You are overweight or very overweight (obese). What are the signs or symptoms? Symptoms of a kidney stone may include: Pain in the side of the belly, right below the ribs (flank pain). Pain usually spreads (radiates) to the groin. Needing to pee often or right away (urgently). Pain when going pee (urinating). Blood in your pee (hematuria). Feeling like you may vomit (nauseous). Vomiting. Fever and chills. How is this treated? Treatment depends on the size, location, and makeup of the kidney stones. The stones will often pass out of the body through peeing. You may need to: Drink more fluid to help pass the stone. In some cases, you may be given fluids through an IV tube put into one of your veins at the hospital. Take medicine for pain. Make changes in your diet to help keep kidney stones from coming back. Sometimes, medical procedures are needed to remove a kidney stone. This may involve: A procedure to break up kidney stones using a beam of light (laser) or shock waves. Surgery to remove the kidney stones. Follow these instructions at home: Medicines Take inxc-snj-zvulrtu and prescription medicines only as told by your doctor. Ask your doctor if the medicine prescribed to you requires you to avoid driving or using heavy machinery. Eating and drinking Drink enough fluid to keep your pee pale yellow. You may be told to drink at least 8 10 glasses of water each day. This will help you pass the stone. If told by your doctor, change your diet. This may include: ?Limiting how much salt you eat. ?Eating more fruits and vegetables. ?Limiting how much meat, poultry, fish, and eggs you eat. Follow instructions from your doctor about eating or drinking restrictions. General instructions Collect pee samples as told by your doctor. You may need to collect a pee sample: ?24 hours after a stone comes out. ?8 12 weeks after a stone comes out, and every 6 12 months after that. Strain your pee every time you pee (urinate), for as long as told. Use the strainer that your doctor recommends. Do not throw out the stone. Keep it so that it can be tested by your doctor. Keep all follow-up visits as told by your doctor. This is important. You may need follow-up tests. How is this prevented? To prevent another kidney stone: Drink enough fluid to keep your pee pale yellow. This is the best way to prevent kidney stones. Eat healthy foods. Avoid certain foods as told by your doctor. You may be told to eat less protein. Stay at a healthy weight. Where to find more information National Kidney Foundation (NKF): www.kidney.org [facility] (UCF): www.urologyhealth.org Contact a doctor if: You have pain that gets worse or does not get better with medicine. Get help right away if: You have a fever or chills. You get very bad pain. You get new pain in your belly (abdomen). You pass out (faint). You cannot pee. Summary Kidney stones are rock-like masses that form inside of the kidneys. Kidney stones can cause very bad pain and can block the flow of pee. The stones will often pass out of the body through peeing. Drink enough fluid to keep your pee pale yellow. This information is not intended to replace advice given to you by your health care provider. Make sure you discuss any questions you have with your health care provider. Document Revised: 05/06/2022 Document Reviewed: 05/06/2022 [employer] Patient Education 2022 AMDL. Follow Up Care 11/19/2022 11:44:13 With:KADE RIOS, FLORINDA Pinto, URL Address: [address] [place] [address] When:Within 1 Year(s) Comments:REGIS/NABIL [facility] 11-07-2023 History of Presen t illness Narrative Called patient to let her know there was an abnormality on the left breast and additional imaging is required. She understands and will call central scheduling to set this up today. Order sent for screening mammogram and diagnostic mammogram on left. MALI Fournier 11/07/23 0906 documented in this encounter [facility] 06-15-2023 Evaluation note Encounter Date Diagnosis Assessment Notes Jun, Acute intractable headache, unspecified headache type (ICD-10 - R51.9) Drink plenty fluids, get plenty of rest. Continue home medications as prescribed. Take your Zofran as needed for nausea. Take Benadryl when she get home and go to bed. Take the prednisone as prescribed until gone starting tomorrow. Follow-up with your family physician if no improvement in 2 to 3 days. It is suggested that you stay home from work tomorrow. Jun, History of sinusitis (ICD-10 - Z87.09) [facility] 09-18-2023 Evaluation note* Encounter Date Diagnosis Assessment Notes Treatment Notes Treatment Clinical Notes May, Contact with and (suspected) exposure to covid-19 (ICD-10 - Z20.822) May, Allergic rhinitis, unspecified seasonality, unspecified trigger (ICD-10 - J30.9) Allergic rhinitis home care material was printed Drink plenty fluids, get plenty of rest. Continue home medications as prescribed. Take the prednisone as prescribed until gone. Follow-up with your family physician if no improvement in 2 to 3 days [facility] Other 04-10-2023 Evaluation note* Encounter Date Diagnosis Assessment Notes Treatment Notes Treatment Clinical Notes Dec, Obstructive sleep apnea (ICD-10 - G47.33) Discussed different options to improve tolerance to CPAP, different masks, issues with each option, encouraged weight loss, continuing use of CPAP, and trial of different mask such as nasal pillows, asked her to report any issues or questions to us otherwise we will see her for follow-up in 1 year [facility] Other 03-13-2023 Evaluation + Plan noteExtracted from: Title:ED Note Author:Riccardo Berry PA-C te:11/25/22 Asthma (J45.909: Unspecified asthma, uncomplicated) Pneumonia (J18.9: Pneumonia, unspecified organism) Orders: azithromycin, = 1 packet(s), Oral, As Directed, as directed on package labeling, X 5 day(s), # 6 tab(s), Refills(s) 0, Pharmacy: [facility], 165, cm, 11/25/22 9:56:00 EDT, Height/Length Dosing, 84.2, kg, 11/25/22 9:56:00 EDT, Weight Dosing benzonatate, 200 mg = 1 cap(s), Oral, TID, X 7 day(s), # 21 cap(s), Refills(s) 0, Pharmacy: [facility], 165, cm, 11/25/22 9:56:00 EDT, Height/Length Dosing, 84.2, kg, 11/25/22 9:56:00 EDT, Weight Dosing cefdinir, 300 mg = 1 cap(s), Oral, q12hr, X 10 day(s), # 20 cap(s), Refills(s) 0, Pharmacy: [facility], 165, cm, 11/25/22 9:56:00 EDT, Height/Length Dosing, 84.2, kg, 11/25/22 9:56:00 EDT, Weight Dosing ibuprofen, 800 mg = 1 tab(s), Tab, Oral, Once, Stop date 11/25/22 10:40:00 EDT, STAT, Start date 11/25/22 10:40:00 EDT, 11/25/22 10:40:00 EDT predniSONE, 60 mg = 3 tab(s), Oral, Daily, X 7 day(s), # 21 tab(s), Refills(s) 0, Pharmacy: [facility], 165, cm, 11/25/22 9:56:00 EDT, Height/Length Dosing, 84.2, kg, 11/25/22 9:56:00 EDT, Weight Dosing XR Chest 2 Views Future Appointments Appointment Date:11/25/2023 02:00:00 PM Scheduled Provider:FLORINDA BRUAN PA-C Location:[facility] Appointment Type:URO Office Visit [facility]03-13-2023 Hospital Discharge instructions Patient Education 11/25/2022 10:50:57 Community-Acquired Pneumonia, Adult Community-Acquired Pneumonia, Adult Pneumonia is a type of lung infection that causes swelling in the airways of the lungs. Mucus and fluid may also build up inside the airways. This may cause coughing and difficulty breathing. There are different types of pneumonia. One type can develop while a person is in a hospital. A different type is called community-acquired pneumonia. It develops in people who are not, and have not recently been, in the hospital or another type of health care facility. What are the causes? This condition may be caused by: Viruses. This is the most common cause of pneumonia. Bacteria. Community-acquired pneumonia is often caused by Streptococcus pneumoniae bacteria. These bacteria are often passed from one person to another by breathing in droplets from the cough or sneeze of an infected person. Fungi. This is the least common cause of pneumonia. What increases the risk? The following factors may make you more likely to develop this condition: Having a chronic disease, such as chronic obstructive pulmonary disease (COPD), asthma, congestive heart failure, cystic fibrosis, diabetes, or kidney disease. Having early-stage or late-stage HIV. Having sickle cell disease. Having had your spleen removed (splenectomy). Having poor dental hygiene. Having a medical condition that increases the risk of breathing in (aspirating) secretions from your own mouth and nose. Having a weakened body defense system (immune system). Being a smoker. Traveling to areas where pneumonia-causing germs commonly exist. Being around animal habitats or animals that have pneumonia-causing germs, including birds, bats, rabbits, cats, and farm animals. What are the signs or symptoms? Symptoms of this condition include: A dry cough. A wet (productive) cough. Fever. Sweating. Chest pain, especially when breathing deeply or coughing. Rapid breathing or difficulty breathing. Shortness of breath. Shaking chills. Fatigue. Muscle aches. How is this diagnosed? This condition may be diagnosed based on: Your medical history. A physical exam. You may also have tests, including: Chest X-rays. Tests of your blood oxygen level and other blood gases. Tests on blood, mucus (sputum), fluid around your lungs (pleural fluid), and urine. If your pneumonia is severe, other tests may be done to find the exact cause of your illness. How is this treated? Treatment for this condition depends on many factors, such as the cause of your pneumonia, the medicines you take, and other medical conditions that you have. For most adults, treatment and recovery from pneumonia may occur at home. In some cases, treatment must happen in a hospital. Treatment may include: Medicines that are given by mouth or through an IV, including: ?Antibiotic medicines, if the pneumonia was caused by bacteria. ?Antiviral medicines, if the pneumonia was caused by a virus. Being given extra oxygen. Respiratory therapy. Although rare, treating severe pneumonia may include: Using a machine to help you breathe (mechanical ventilation). This is done if you are not breathingwell on your own and you cannot maintain a safe blood oxygen level. Thoracentesis. This is a procedure to remove fluid from around one lung or both lungs to help you breathe better. Follow these instructions at home: Medicines Take ubkw-ocm-shlhlgd and prescription medicines only as told by your health care provider. ?Only take cough medicine if you are losing sleep. Be aware that cough medicine can prevent your body's natural ability to remove mucus from your lungs. If you were prescribed an antibiotic medicine, take it as told by your health care provider. Do notstop taking the antibiotic even if you start to feel better. General instructions Sleep in a semi-upright position at night. Try sleeping in a reclining chair, or place a few pillows under your head. Rest as needed and get at least 8 hours of sleep each night. Drink enough water to keep your urine pale yellow. This will help to thin out mucus secretions in your lungs. Eat a healthy diet that includes plenty of vegetables, fruits, whole grains, low-fat dairy products, and lean protein. Do not use any products that contain nicotine or tobacco, such as cigarettes, e- cigarettes, and chewing tobacco. If you need help quitting, ask your health care provider. Keep all follow-up visits as told by your health care provider. This is important. How is this prevented? You can lower your risk of developing community-acquired pneumonia by: Getting a pneumococcal vaccine. There are different types and schedules of pneumococcal vaccines. Ask your health care provider which option is best for you. Consider getting the vaccine if: ?You are older than 65 years of age. ?You are older than 19 years of age and are undergoing cancer treatment, have chronic lung disease,or have other medical conditions that affect your immune system. Ask your health care provider if this applies to you. Getting an influenza vaccine every year. Ask your health care provider which type of vaccine is best for you. Getting regular checkups from your dentist. Washing your hands often. If soap and water are not available, use hand relief cook. Contact a health care provider if: You have a fever. You are losing sleep because you cannot control your cough with cough medicine. Get help right away if: You have worsening shortness of breath. You have increased chest pain. Your sickness becomes worse, especially if you are an older adult or have a weakened immune system. You cough up blood. Summary Pneumonia is an infection of the lungs. Community-acquired pneumonia develops in people who have not been in the hospital. It can be causedby bacteria, viruses, or fungi. This condition may be treated with antibiotics or antiviral medicines. Severe cases may require hospitalization, mechanical ventilation, and other procedures to drain fluid from the lungs. This information is not intended to replace advice given to you by your health care provider. Make sure you discuss any questions you have with your health care provider. Document Released: 09/01/2006 Document Revised: 04/29/2019 Document Reviewed: 04/29/2019 [employer] Patient Education 2020 AMDL. Follow Up Care 11/25/2022 09:44:57 With:GERA TERESA Address: [facility] [place] [address] Business (1) When:11/28/2022 10:41:38 [facility]03-08-2023 Evaluation note* Encounter Date Diagnosis Assessment Notes Treatment Notes Treatment Clinical Notes Nov, Nasal congestion (ICD-10 - R09.81) Nov, Viral upper respiratory infection (ICD-10 - J06.9) Viral upper respiratory infection: adult home care material was printed Drink plenty fluids, get plenty of rest. Take Tylenol or Motrin as needed for aches pains or fevers. Continue home medications as prescribed including albuterol inhaler and Flonase inhaler. Off work today and tomorrow. Follow-up with your family physician if no improvement in 2 to 3 days Nov, Sore throat (ICD-10 - J02.9) [facility] 03-07-2023 Hospital Discharge instructions Patient Education 11/19/2022 11:49:56 24-Hour Urine Collection 24-Hour Urine Collection A 24-hour urine specimen is a lab test that requires collection of all your urine for an entire day. This is sometimes called a timed urine test. It can provide more information than a single urine sample. There are many reasons to have this test. Your health care provider may order the test to check foror monitor the following conditions: High blood pressure. Kidney disease. Kidney stones. Urinary tract infections. . Diabetes. How do I prepare for this test? You may be asked to follow a special diet during or before the collection period. Follow any instructions from your health care provider. If no special instructions are given, you may eat and drink normally. Take dcze-mev-zkdlmcm and prescription medicines only as told by your health care provider. Let your health care provider know about any medicines that you are taking, including ybad-npm-hpjsotj medicines, vitamins, herbs, and supplements. Choose a collection day when you can be at home or when you have a place to store the urine. All urine must be collected during the testing period. How do I do a 24-hour urine collection? When you get up in the morning, urinate in the toilet and flush. Write down the time. This will be your start time on the day of collection and your end time on the next morning. From the start time on, all of your urine should be kept in the collection jug that you received from the lab. If the jug that is given to you already has liquid in it, that is okay. Do not throw out the liquidor rinse out the jug. Some tests need the liquid to be added to your urine. Urinate into a specimen container, such as a urinal or petit that sits over the toilet. Pour the urine from the container into the collection jug. Be careful not to spill any of the urine. Use the equipment provided by the lab. Do not let any toilet paper or stool (feces) get into the jug. This will contaminate the sample. Stop collecting your urine 24 hours after you started. Collect the last specimen as close as possible to the end of the 24-hour period. Keep the jug cool in an ice chest or keep it in the refrigerator during collection. When the 24-hour collection is complete, bring the jug to the lab. Keep the jug cool in an ice chest while you are bringing it to the lab. What do the results mean? Talk with your health care provider about what your results mean. Questions to ask your health care provider Ask your health care provider, or the department that is doing the test: When will my results be ready? How will I get my results? What are my treatment options? What other tests do I need? What are my next steps? Summary A 24-hour urine specimen is a lab test that requires collection of all your urine for an entire day. When you get up in the morning, urinate in the toilet and flush. Write down the time. For the next 24 hours, collect all of your urine in the collection jug that you received from the lab. Keep the jug cool while collecting the urine and while bringing it back to the lab. Take the jug of urine back to the lab as soon as possible after the collection period has ended. This information is not intended to replace advice given to you by your health care provider. Make sure you discuss any questions you have with your health care provider. Document Released: 11/28/2009 Document Revised: 12/20/2019 Document Reviewed: 09/14/2018 [employer] Patient Education 2020 AMDL. Follow Up Care 07/29/2022 09:24:04 With:KADE RIOS, FLORINDA Pinto, URL Address: When:1 year [facility] 10-10-2022 Evaluation note* Encounter Date Diagnosis Assessment Notes Treatment Notes Treatment Clinical Notes Jun, Sleep apnea, unspecified type (ICD-10 - G47.30) Discussed causes of sleep disruption, as opposed to chronic insomnia, evaluation to include polysomnography, with monitoring of sleep quality and quantity, as well as limb movements during sleep is essential and ruling out other causes of disruption. Depending on results we can recommend treatment Jun, Restless sleeper (ICD-10 - G47.9) [facility] Other 08-05-2022 Evaluation + Plan note Future Scheduled Tests Radiology* XR IVP 04/19/[address] [facility] 08-05-2022 Hospital Discharge instructions Patient Education 04/19/2022 09:06:45 Kidney Stones, Gpni-vz-Geir Kidney Stones Kidney stones are rock-like masses that form inside of the kidneys. Kidneys are organs that make pee (urine). A kidney stone may move into other parts of the urinary tract, including: The tubes that connect the kidneys to the bladder (ureters). The bladder. The tube that carries urine out of the body (urethra). Kidney stones can cause very bad pain and can block the flow of pee. The stone usually leaves your body (passes) through your pee. You may need to have a doctor take out the stone. What are the causes? Kidney stones may be caused by: A condition in which certain glands make too much parathyroid hormone (primary hyperparathyroidism). A buildup of a type of crystals in the bladder made of a chemical called uric acid. The body makes uric acid when you eat certain foods. Narrowing (stricture) of one or both of the ureters. A kidney blockage that you were born with. Past surgery on the kidney or the ureters, such as gastric bypass surgery. What increases the risk? You are more likely to develop this condition if: You have had a kidney stone in the past. You have a family history of kidney stones. You do not drink enough water. You eat a diet that is high in protein, salt (sodium), or sugar. You are overweight or very overweight (obese). What are the signs or symptoms? Symptoms of a kidney stone may include: Pain in the side of the belly, right below the ribs (flank pain). Pain usually spreads (radiates) to the groin. Needing to pee often or right away (urgently). Pain when going pee (urinating). Blood in your pee (hematuria). Feeling like you may vomit (nauseous). Vomiting. Fever and chills. How is this treated? Treatment depends on the size, location, and makeup of the kidney stones. The stones will often pass out of the body through peeing. You may need to: Drink more fluid to help pass the stone. In some cases, you may be given fluids through an IV tube put into one of your veins at the hospital. Take medicine for pain. Make changes in your diet to help keep kidney stones from coming back. Sometimes, medical procedures are needed to remove a kidney stone. This may involve: A procedure to break up kidney stones using a beam of light (laser) or shock waves. Surgery to remove the kidney stones. Follow these instructions at home: Medicines Take rjer-xim-maajjji and prescription medicines only as told by your doctor. Ask your doctor if the medicine prescribed to you requires you to avoid driving or using heavy machinery. Eating and drinking Drink enough fluid to keep your pee pale yellow. You may be told to drink at least 8 10 glasses of water each day. This will help you pass the stone. If told by your doctor, change your diet. This may include: ?Limiting how much salt you eat. ?Eating more fruits and vegetables. ?Limiting how much meat, poultry, fish, and eggs you eat. Follow instructions from your doctor about eating or drinking restrictions. General instructions Collect pee samples as told by your doctor. You may need to collect a pee sample: ?24 hours after a stone comes out. ?8 12 weeks after a stone comes out, and every 6 12 months after that. Strain your pee every time you pee (urinate), for as long as told. Use the strainer that your doctor recommends. Do not throw out the stone. Keep it so that it can be tested by your doctor. Keep all follow-up visits as told by your doctor. This is important. You may need follow-up tests. How is this prevented? To prevent another kidney stone: Drink enough fluid to keep your pee pale yellow. This is the best way to prevent kidney stones. Eat healthy foods. Avoid certain foods as told by your doctor. You may be told to eat less protein. Stay at a healthy weight. Where to find more information National Kidney Foundation (NKF): www.kidney.org [facility] Care [facility] (UCF): www.urologyhealth.org Contact a doctor if: You have pain that gets worse or does not get better with medicine. Get help right away if: You have a fever or chills. You get very bad pain. You get new pain in your belly (abdomen). You pass out (faint). You cannot pee. Summary Kidney stones are rock-like masses that form inside of the kidneys. Kidney stones can cause very bad pain and can block the flow of pee. The stones will often pass out of the body through peeing. Drink enough fluid to keep your pee pale yellow. This information is not intended to replace advice given to you by your health care provider. Make sure you discuss any questions you have with your health care provider. Document Released: 02/17/2009 Document Revised: 01/18/2020 Document Reviewed: 01/18/2020 [employer] Patient Education 2020 [employer] Follow Up Care 04/02/2022 11:51:41 With:KASSIDY THORNE, Justin Peterson, URL Address: [address] [place], [place] [id number]- When: Unknown [facility] 07-17-2022 Evaluation + Plan noteExtracted from: Title:ED Note Author:Abilio Brambila, Iraida Knowles te:03/31/22 1. Left ureteral stone (N20. 1: Calculus of ureter) Ordered: acetaminophen-oxycodone, 1 tab(s), Oral, q6hr as needed for pain, 10 tab(s), Refill(s) 0, [facility], 165, cm, 03/30/22 21:43:00 EDT, Height/Length Dosing, 79.5, kg, 03/30/22 21:43:00 EDT, Weight Dosing 2. Urinary tract infection (N39.0: Urinary tract infection, site not specified) Orders: cephalexin, 500 mg = 1 cap(s), Oral, QID, X 7 day(s), # 28 cap(s), Refills(s) 0, Pharmacy: [id number], 165, cm, 03/30/22 21:43:00 EDT, Height/Length Dosing, 79.5, kg, 03/30/22 21:43:00 EDT, Weight Dosing HYDROmorphone, 0.5 mg = 0.5 mL, Injection, IV Push, Once, Stop date 03/30/22 23:59:00 EDT, STAT, Start date 03/30/22 23:59:00 EDT, 03/30/22 23:59:00 EDT morphine, 4 mg = 2 mL, Injection, IV Push, Once, Stop date 03/30/22 22:16:00 EDT, STAT, Start date 03/30/22 22:16:00 EDT, 03/30/22 22:16:00 EDT ondansetron, 4 mg = 2 mL, Injection, IV Push, Once, Stop date 03/30/22 22:16:00 EDT, STAT, Start date 03/30/22 22:16:00 EDT, 03/30/22 22:16:00 EDT promethazine, 12.5 mg = 0.5 mL, Injection, IV Push, Once, Stop date 03/30/22 23:59:00 EDT, STAT, Start date 03/30/22 23:59:00 EDT, 03/30/22 23:59:00 EDT Sodium Chloride 0.9% intravenous solution, Soln-IV, Misc, Once, Stop date 03/30/22 22:57:58 EDT, Physician Stop, 03/30/22 22:57:58 EDT Sodium Chloride 0.9% intravenous solution, 1,000 mL, Soln-IV, IV, Once, Stop date 03/30/22 22:16:00 EDT, STAT, Start date 03/30/22 22:16:00 EDT, Infuse over 61, minute(s) Automated Diff Basic Metabolic Panel CBC w/ Auto Diff CT Abdomen/Pelvis w/o Contrast eGFR Hepatic Function Panel Lipase Level UA With Cult Reflex Urine Culture Future Appointments Appointment Date:08/06/2022 02:15:00 PM Scheduled Provider:Misael MAHER MD Location:[facility] Appointment Type:URO Office Visit Diagnostic Tests Pending * Urine Culture 03/30/22 [facility]07-17-2022 Hospital Discharge instructions Patient Education 03/31/2022 02:46:45 Urinary Tract Infection, Adult Urinary Tract Infection, Adult A urinary tract infection (UTI) is an infection of any part of the urinary tract. The urinary tractincludes the kidneys, ureters, bladder, and urethra. These organs make, store, and get rid of urinein the body. Your health care provider may use other names to describe the infection. An upper UTI affects the ureters and kidneys (pyelonephritis). A lower UTI affects the bladder (cystitis) and urethra (urethritis). What are the causes? Most urinary tract infections are caused by bacteria in your genital area, around the entrance to your urinary tract (urethra). These bacteria grow and cause inflammation of your urinary tract. What increases the risk? You are more likely to develop this condition if: You have a urinary catheter that stays in place (indwelling). You are not able to control when you urinate or have a bowel movement (you have incontinence). You are female and you: ?Use a spermicide or diaphragm for control. ?Have low estrogen levels. ?Are . You have certain genes that increase your risk (genetics). You are sexually active. You take antibiotic medicines. You have a condition that causes your flow of urine to slow down, such as: ?An enlarged prostate, if you are male. ?Blockage in your urethra (stricture). ?A kidney stone. ?A nerve condition that affects your bladder control (neurogenic bladder). ?Not getting enough to drink, or not urinating often. You have certain medical conditions, such as: ?Diabetes. ?A weak disease-fighting system (immunesystem). ?Sickle cell disease. ?Gout. ?Spinal cord injury. What are the signs or symptoms? Symptoms of this condition include: Needing to urinate right away (urgently). Frequent urination or passing small amounts of urine frequently. Pain or burning with urination. Blood in the urine. Urine that smells bad or unusual. Trouble urinating. Cloudy urine. Vaginal discharge, if you are female. Pain in the abdomen or the lower back. You may also have: Vomiting or a decreased appetite. Confusion. Irritability or tiredness. A fever. Diarrhea. The first symptom in older adults may be confusion. In some cases, they may not have any symptoms until the infection has worsened. How is this diagnosed? This condition is diagnosed based on your medical history and a physical exam. You may also have other tests, including: Urine tests. Blood tests. Tests for sexually transmitted infections (STIs). If you have had more than one UTI, a cystoscopy or imaging studies may be done to determine the cause of the infections. How is this treated? Treatment for this condition includes: Antibiotic medicine. Gkdu-drt-cmzaznl medicines to treat discomfort. Drinking enough water to stay hydrated. If you have frequent infections or have other conditions such as a kidney stone, you may need to see a health care provider who specializes in the urinary tract (urologist). In rare cases, urinary tract infections can cause sepsis. Sepsis is a life- threatening condition that occurs when the body responds to an infection. Sepsis is treated in the hospital with IV antibiotics, fluids, and other medicines. Follow these instructions at home: Medicines Take ifkt-gml-euwhwei and prescription medicines only as told by your health care provider. If you were prescribed an antibiotic medicine, take it as told by your health care provider. Do notstop using the antibiotic even if you start to feel better. General instructions Make sure you: ?Empty your bladder often and completely. Do not hold urine for long periods of time. ?Empty your bladder after sex. ?Wipe from front to back after a bowel movement if you are female. Use each tissue one time when you wipe. Drink enough fluid to keep your urine pale yellow. Keep all follow-up visits as told by your health care provider. This is important. Contact a health care provider if: Your symptoms do not get better after 1 2 days. Your symptoms go away and then return. Get help right away if you have: Severe pain in your back or your lower abdomen. A fever. Nausea or vomiting. Summary A urinary tract infection (UTI) is an infection of any part of the urinary tract, which includes the kidneys, ureters, bladder, and urethra. Most urinary tract infections are caused by bacteria in your genital area, around the entrance to your urinary tract (urethra). Treatment for this condition often includes antibiotic medicines. If you were prescribed an antibiotic medicine, take it as told by your health care provider. Do notstop using the antibiotic even if you start to feel better. Keep all follow-up visits as told by your health care provider. This is important. This information is not intended to replace advice given to you by your health care provider. Make sure you discuss any questions you have with your health care provider. Document Released: 06/11/2006 Document Revised: 08/19/2019 Document Reviewed: 03/11/2019 [employer] Patient Education 2020 AMDL. 03/31/2022 02:46:45 Kidney Stones Kidney Stones Kidney stones are solid, rock-like deposits that form inside of the kidneys. The kidneys are a pairof organs that make urine. A kidney stone may form in a kidney and move into other parts of the urinary tract, including the tubes that connect the kidneys to the bladder (ureters), the bladder, and the tube that carries urine out of the body (urethra). As the stone moves through these areas, it can cause intense pain and block the flow of urine. Kidney stones are created when high levels of certain minerals are found in the urine. The stones are usually passed out of the body through urination, but in some cases, medical treatment may be needed to remove them. What are the causes? Kidney stones may be caused by: A condition in which certain glands produce too much parathyroid hormone (primary hyperparathyroidism), which causes too much calcium buildup in the blood. A buildup of uric acid crystals in the bladder (hyperuricosuria). Uric acid is a chemical that the body produces when you eat certain foods. It usually exits the body in the urine. Narrowing (stricture) of one or both of the ureters. A kidney blockage that is present at (congenital obstruction). Past surgery on the kidney or the ureters, such as gastric bypass surgery. What increases the risk? The following factors may make you more likely to develop this condition: Having had a kidney stone in the past. Having a family history of kidney stones. Not drinking enough water. Eating a diet that is high in protein, salt (sodium), or sugar. Being overweight or obese. What are the signs or symptoms? Symptoms of a kidney stone may include: Pain in the side of the abdomen, right below the ribs (flank pain). Pain usually spreads (radiates)to the groin. Needing to urinate frequently or urgently. Painful urination. Blood in the urine (hematuria). Nausea. Vomiting. Fever and chills. How is this diagnosed? This condition may be diagnosed based on: Your symptoms and medical history. A physical exam. Blood tests. Urine tests. These may be done before and after the stone passes out of your body through urination. Imaging tests, such as a CT scan, abdominal X-ray, or ultrasound. A procedure to examine the inside of the bladder (cystoscopy). How is this treated? Treatment for kidney stones depends on the size, location, and makeup of the stones. Kidney stones will often pass out of the body through urination. You may need to: Increase your fluid intake to help pass the stone. In some cases, you may be given fluids through an IV and may need to be monitored at the hospital. Take medicine for pain. Make changes in your diet to help prevent kidney stones from coming back. Sometimes, medical procedures are needed to remove a kidney stone. This may involve: A procedure to break up kidney stones using: ?A focused beam of light (laser therapy). ?Shock waves (extracorporeal shock wave lithotripsy). Surgery to remove kidney stones. This may be needed if you have severe pain or have stones that block your urinary tract. Follow these instructions at home: Medicines Take fxsn-daa-unemgba and prescription medicines only as told by your health care provider. Ask your health care provider if the medicine prescribed to you requires you to avoid driving or using heavy machinery. Eating and drinking Drink enough fluid to keep your urine pale yellow. You may be instructed to drink at least 8 10 glasses of water each day. This will help you pass the kidney stone. If directed, change your diet. This may include: ?Limiting how much sodium you eat. ?Eating more fruits and vegetables. ?Limiting how much animal protein such as red meat, poultry, fish, and eggs you eat. Follow instructions from your health care provider about eating or drinking restrictions. General instructions Collect urine samples as told by your health care provider. You may need to collect a urine sample: ?24 hours after you pass the stone. ?8 12 weeks after passing the kidney stone, and every 6 12 months after that. Strain your urine every time you urinate, for as long as directed. Use the strainer that your health care provider recommends. Do not throw out the kidney stone after passing it. Keep the stone so it can be tested by your health care provider. Testing the makeup of your kidney stone may help prevent you from getting kidney stones in the future. Keep all follow-up visits as told by your health care provider. This is important. You may need follow-up X-rays or ultrasounds to make sure that your stone has passed. How is this prevented? To prevent another kidney stone: Drink enough fluid to keep your urine pale yellow. This is the best way to prevent kidney stones. Eat a healthy diet and follow recommendations from your health care provider about foods to avoid. You may be instructed to eat a low-protein diet. Recommendations vary depending on the type of kidney stone that you have. Maintain a healthy weight. Where to find more information National Kidney Foundation (NKF): www.kidney.org U[facility] Care [facility] (UCF): www.urologyhealth.org Contact a health care provider if: You have pain that gets worse or does not get better with medicine. Get help right away if: You have a fever or chills. You develop severe pain. You develop new abdominal pain. You faint. You are unable to urinate. Summary Kidney stones are solid, rock-like deposits that form inside of the kidneys. Kidney stones can cause nausea, vomiting, blood in the urine, abdominal pain, and the urge to urinate frequently. Treatment for kidney stones depends on the size, location, and makeup of the stones. Kidney stones will often pass out of the body through urination. Kidney stones can be prevented by drinking enough fluids, eating a healthy diet, and maintaining a healthy weight. This information is not intended to replace advice given to you by your health care provider. Make sure you discuss any questions you have with your health care provider. Document Released: 09/01/2006 Document Revised: 01/18/2020 Document Reviewed: 01/18/2020 [employer] Patient Education 2020 AMDL. Follow Up Care 03/30/2022 21:24:27 With:Justin YI Address: [facility] [address] [place] [address]- Business (1) When:04/03/2022 Comments:Return to the emergency room if your pain gets worse or any new symptoms With:GERA TERESA Address: [address] [place] [address] Business (1) When:Within 3 Day(s) [facility]06-16-2022 NotePROCEDURE: XR ANKLE RT MIN 3 VIEWS, XR FOOT RT MIN 3 VIEWS HISTORY: Pain COMPARISON: XR ankle right 02/27/2022 FINDINGS: BONES:No fracture, acute abnormality, or significant arthropathy. SOFT TISSUES:No visible soft tissue swelling. EFFUSION:None visible. OTHER: Negative. IMPRESSION: 1. No acute bone abnormality or significant degenerative changes of the right ankle and foot. Electronically authenticated by: ARVIN MONTEIRO Date: 2022-02-28 18:02[facility]06-16-2022 NotePROCEDURE: XR ANKLE RT MIN 3 VIEWS, XR FOOT RT MIN 3 VIEWS HISTORY: Pain COMPARISON: XR ankle right 02/27/2022 FINDINGS: BONES:No fracture, acute abnormality, or significant arthropathy. SOFT TISSUES:No visible soft tissue swelling. EFFUSION:None visible. OTHER: Negative. IMPRESSION: 1. No acute bone abnormality or significant degenerative changes of the right ankle and foot. Electronically authenticated by: ARVIN MONTEIRO Date: 2022-02-28 18:02[facility]06-15-2022 NotePROCEDURE: XR ANKLE RT MIN 3 VIEWS HISTORY: Pain of right ankle joint ; right ankle pain and swelling, no known injury COMPARISON: None. FINDINGS: BONES:No fracture, acute abnormality, or significant arthropathy. SOFT TISSUES: Moderate lateral soft tissue swelling. EFFUSION:None visible. OTHER: Negative. IMPRESSION: 1. Lateral swelling suggesting soft tissue injury. 2. No acute bone abnormality. Electronically authenticated by: ARVIN MONTEIRO Date: 2022-02-27 15:16[facility]05-23-2022 Hospital Discharge instructions Patient Education 02/04/2022 13:58:24 EU - Cystoscopy with Stent Removal Discharge Instructions (Custom) Cystoscopy with Stent Removal Voiding after the procedure: there may be some pain, burning, urgency, frequency and blood tinged urine following the procedure. These symptoms usually resolve within 2-5 days. Drink the amount of fluid it takes to keep the urine pink to yellow or clear in color. Drinking enough water and fluids will help to ease any discomfort after your procedure. If you are having problems that seem out of the ordinary, please call. If unable to contact your physician and you feel it is an emergency, go to the nearest emergency room or call 911 Diet you may resume your normal diet. Activity you may resume your normal activities Call if you have a fever over 100 degrees. Follow Up Care 01/25/2022 13:36:51 With:Misael NIKA Address: [facility] [address] [place] [id number] [facility] (1) When:6 months Comments:Call for followup appointment with an abdominal X-ray prior to your visit. Have a great day! [facility]05-12-2022 Hospital Discharge instructions Patient Education 01/24/2022 15:47:58 Kidney Stones Kidney Stones Kidney stones are solid, rock-like deposits that form inside of the kidneys. The kidneys are a pairof organs that make urine. A kidney stone may form in a kidney and move into other parts of the urinary tract, including the tubes that connect the kidneys to the bladder (ureters), the bladder, and the tube that carries urine out of the body (urethra). As the stone moves through these areas, it can cause intense pain and block the flow of urine. Kidney stones are created when high levels of certain minerals are found in the urine. The stones are usually passed out of the body through urination, but in some cases, medical treatment may be needed to remove them. What are the causes? Kidney stones may be caused by: A condition in which certain glands produce too much parathyroid hormone (primary hyperparathyroidism), which causes too much calcium buildup in the blood. A buildup of uric acid crystals in the bladder (hyperuricosuria). Uric acid is a chemical that the body produces when you eat certain foods. It usually exits the body in the urine. Narrowing (stricture) of one or both of the ureters. A kidney blockage that is present at (congenital obstruction). Past surgery on the kidney or the ureters, such as gastric bypass surgery. What increases the risk? The following factors may make you more likely to develop this condition: Having had a kidney stone in the past. Having a family history of kidney stones. Not drinking enough water. Eating a diet that is high in protein, salt (sodium), or sugar. Being overweight or obese. What are the signs or symptoms? Symptoms of a kidney stone may include: Pain in the side of the abdomen, right below the ribs (flank pain). Pain usually spreads (radiates)to the groin. Needing to urinate frequently or urgently. Painful urination. Blood in the urine (hematuria). Nausea. Vomiting. Fever and chills. How is this diagnosed? This condition may be diagnosed based on: Your symptoms and medical history. A physical exam. Blood tests. Urine tests. These may be done before and after the stone passes out of your body through urination. Imaging tests, such as a CT scan, abdominal X-ray, or ultrasound. A procedure to examine the inside of the bladder (cystoscopy). How is this treated? Treatment for kidney stones depends on the size, location, and makeup of the stones. Kidney stones will often pass out of the body through urination. You may need to: Increase your fluid intake to help pass the stone. In some cases, you may be given fluids through an IV and may need to be monitored at the hospital. Take medicine for pain. Make changes in your diet to help prevent kidney stones from coming back. Sometimes, medical procedures are needed to remove a kidney stone. This may involve: A procedure to break up kidney stones using: ?A focused beam of light (laser therapy). ?Shock waves (extracorporeal shock wave lithotripsy). Surgery to remove kidney stones. This may be needed if you have severe pain or have stones that block your urinary tract. Follow these instructions at home: Medicines Take xtgq-iyr-sdnosjn and prescription medicines only as told by your health care provider. Ask your health care provider if the medicine prescribed to you requires you to avoid driving or using heavy machinery. Eating and drinking Drink enough fluid to keep your urine pale yellow. You may be instructed to drink at least 8 10 glasses of water each day. This will help you pass the kidney stone. If directed, change your diet. This may include: ?Limiting how much sodium you eat. ?Eating more fruits and vegetables. ?Limiting how much animal protein such as red meat, poultry, fish, and eggs you eat. Follow instructions from your health care provider about eating or drinking restrictions. General instructions Collect urine samples as told by your health care provider. You may need to collect a urine sample: ?24 hours after you pass the stone. ?8 12 weeks after passing the kidney stone, and every 6 12 months after that. Strain your urine every time you urinate, for as long as directed. Use the strainer that your health care provider recommends. Do not throw out the kidney stone after passing it. Keep the stone so it can be tested by your health care provider. Testing the makeup of your kidney stone may help prevent you from getting kidney stones in the future. Keep all follow-up visits as told by your health care provider. This is important. You may need follow-up X-rays or ultrasounds to make sure that your stone has passed. How is this prevented? To prevent another kidney stone: Drink enough fluid to keep your urine pale yellow. This is the best way to prevent kidney stones. Eat a healthy diet and follow recommendations from your health care provider about foods to avoid. You may be instructed to eat a low-protein diet. Recommendations vary depending on the type of kidney stone that you have. Maintain a healthy weight. Where to find more information National Kidney Foundation (NKF): www.kidney.org Urology Care Foundation (UCF): www.urologyhealth.org Contact a health care provider if: You have pain that gets worse or does not get better with medicine. Get help right away if: You have a fever or chills. You develop severe pain. You develop new abdominal pain. You faint. You are unable to urinate. Summary Kidney stones are solid, rock-like deposits that form inside of the kidneys. Kidney stones can cause nausea, vomiting, blood in the urine, abdominal pain, and the urge to urinate frequently. Treatment for kidney stones depends on the size, location, and makeup of the stones. Kidney stones will often pass out of the body through urination. Kidney stones can be prevented by drinking enough fluids, eating a healthy diet, and maintaining a healthy weight. This information is not intended to replace advice given to you by your health care provider. Make sure you discuss any questions you have with your health care provider. Document Released: 09/01/2006 Document Revised: 01/18/2020 Document Reviewed: 01/18/2020 [employer] Patient Education 2019 [employer] Follow Up Care 01/24/2022 06:02:33 With:Misael MAHER Address: [address] [facility] [address] [place] [address]- Business (1) When: Unknown Comments:Call for followup appointment with an abdominal x-RAY prior to your visit. With:GERA KIMKOMAL Address: [address] [place] [address] Business (1) When: Unknown [facility]05-12-2022 Evaluation + Plan noteExtracted from: Title:Urology Consult and H&P 2 Author:Misael MAHER MD Date:01/24/22 Impression and Plan Diagnosis Renal calculi ([id number] N20.0, Discharge, Medical). Hydronephrosis with ureteral calculus ([id number] N13.2, Working, Medical). Complaint of Flank pain (PNED [id number], Reason For Visit, Nursing). Course: Worsening, overall this patient has a right distal ureteral calculus which has failed to pass. This has been over a week of trial. She most likely has had this stone for about 3 weeks as this is when she had the initial onset of pain. She is unable to tolerate the pain any longer and then again presented to our emergency room with admission. CT scan is viewed, discussed with patient, discussed with anesthesia. Patient choose to have intervention today which will consist of cystoscopy and a retrograde pyelogram and the possibility of ureteroscopic stone extraction, possible laser ablation, possible stent placement. Risk of anesthesia have been discussed. These include heart and lung problems. Prophylactic antibiotics will be administered IV. She wishes to proceed.. Extracted from: Title:Admission H & P Author:MUKUL DIXON-SANDRA R enana rosa Date:01/24/22 1. Renal calculi (N20.0: Elliott culus of kidney) CT abdomen/pelvis: Calculus distal right ureter with associated obstructive uropathy. -Consult urology > n.p.o. plan for intervention 01/24 -IVF, IV morphine prn, IV antiemetics 2. Renal colic on right side (N23: Unspecified renal colic) 2/2 above 3. Intractable pain (R52: Pain, unspecified) 2/2 above 4. Elevated alkaline phosphatase level (R74.8: Abnormal levels of other serum enzymes) Mild elevation -Repeat labs in a.m. unless pt. is discharged and then may follow up with PCP for further eval is warranted 5. Asthma (J45.909: Unspecified asthma, uncomplicated) Stable -Awaiting med rec. 6. Hypertension (I10: Essential (primary) hypertension) -Awaiting med rec. 7. Hyperthyroidism (E05.90: Thyrotoxicosis, unspecified without thyrotoxic crisis or storm) -Awaiting med rec. 8. Obesity (E66.9: Obesity, unspecified) BMI 32 -Educated on need for lifestyle modifications with goal of weight loss as obesity has a negative impact on co-morbid conditions. 9. DVT prophylaxis (Z29.9: Encounter for prophylactic measures, unspecified) -Avoid heparin pending urology intervention today -SCDs, early ambulation Orders: morphine, 1 mg = 0.5 mL, Injection, IV Push, q4hr PRN Pain for 5 day(s), Stop date 01/29/22 10:28:00 EDT, Routine, Start date 01/24/22 10:29:00 EDT, 01/24/22 10:29:00 EDT ondansetron, 4 mg = 2 mL, Injection, IV Push, q6hr PRN Nausea, Routine, Start date 01/24/22 10:30:00 EDT, 01/24/22 10:30:00 EDT Sodium Chloride 0.9% intravenous solution 1,000 mL, 1,000 mL, IV, 75 mL/hr, Routine, Start date 01/24/22 10:30:00 EDT, 13.3 hour(s), Total volume (mL): 1,000, 87.5 kg, 2, m2 Alkaline Phosphatase Ambulate with Assistance Basic Metabolic Panel Below the Knee Intermittent Pneumatic Compression Device Consult to Urology Elevate Head of Bed Intake and Output Notify Provider Vital Signs Notify Provider Vital Signs NPO Diet Oxygen Protocol Precautions Pulse Oximetry Resuscitation Status - Full Vital Signs Weight -Plan discussed w/ patient, nursing staff and CRM. -Disposition: Patient will likely be less than 2 midnight stays for treatment of above This report was transcribed using voice recognition software. Every effort was made to ensure accuracy, however, inadvertently computerized senior medical transcriptionist mistakes may be present. Extracted from: Title:ED Addendum Author:Iraida Knox M.D. Date:01/24/22 1. Intractable pain (R52: Pa in, unspecified) Renal colic on right side (N23: Unspecified renal colic) Orders: Sodium Chloride 0.9% intravenous solution 1,000 mL, 1,000 mL, IV, 250 mL/hr, STAT, Start date 01/24/22 8:58:00 EDT, 4 hour(s), Total volume (mL): 1,000, 87.5 kg, 2, m2 ED Physician consult Hospitalist for continued care NPO Diet Extracted from: Title:ED Note Author:Chad Smart DO Date :01/24/22 Renal colic on right side (N 23: Unspecified renal colic) Orders: ketorolac, 30 mg = 1 mL, Injection, IV Push, Once, Stop date 01/24/22 6:24:00 EDT, STAT, Start date 01/24/22 6:24:00 EDT, 01/24/22 6:24:00 EDT ondansetron, 4 mg = 2 mL, Injection, IV Push, Once, Stop date 01/24/22 6:24:00 EDT, STAT, Start date 01/24/22 6:24:00 EDT, 01/24/22 6:24:00 EDT Sodium Chloride 0.9% intravenous solution, 1,000 mL, Soln-IV, IV, Once, Stop date 01/24/22 6:24:00 EDT, STAT, Start date 01/24/22 6:24:00 EDT, Infuse over 61, minute(s) Basic Metabolic Panel CBC w/ Auto Diff CT Abdomen/Pelvis w/o Contrast eGFR Hepatic Function Panel UA With Cult Reflex Future Appointments Appointment Date:01/30/2022 09:45:00 AM Scheduled Provider:Nohemi Garcia MD Location:[facility] Appointment Type:URO New Patient Diagnostic Tests Pending * Calculi Analysis Urinary 01/24/22 [facility]05-02-2022 Evaluation note* Encounter Date Diagnosis Assessment Notes Treatment Notes Treatment Clinical Notes January, Dysuria (ICD-10 - R30.0) January, Urinary tract infection, site not specified (ICD-10 - N39.0) Drink plenty fluids, get plenty of rest. Take the Macrobid as prescribed until gone. Take the Pyridium as prescribed until gone. Take Tylenol or Motrin for aches pains or fevers. Follow-up with your family physician if no improvement in 2 to 3 days. January, Hematuria, unspecified (ICD-10 - R31.9) [facility] Other 10-28-2021 Evaluation note* Encounter Date Diagnosis Assessment Notes Treatment Notes Treatment Clinical Notes Jun, Contact with and (suspected) exposure to other viral communicable diseases (ICD-10 - Z20.828) Today test was performed in office. Results are currently negative. That does not mean that you will not develop COVID or do not currently have a low viral count of COVID. The rapid test works best if symptoms have been over 72 hours and the results can vary if you are asymptomatic There is a higher chance of false negative results to occur if testing is performed too soon. It is recommended that even if results are negative and you have been exposed to someone that has COVID that you follow current CDC recommendations. These can be found at CDC.GOV. Follow up with primary care provider if symptoms persist or do not improve Jun, Mild intermittent asthma with exacerbation (ICD-10 - J45.21) Take medications as directed with food. Complete all doses of steroids. Use inhaler or nebulizer at least 2-3 times per day for next 48 hours. Increase fluid intake. Follow up with primary care provider is recommended to discuss treatment plan changes to asthma. Seek emergency help if difficulty breathing develops Jun, Other Additional time spent conducting pre-visit phone call, screening for symptoms, instructions on social distancing, application and removal of PPE, and cleaning of examination room, equipment and supplies was preformed. Patient education given for testing methodology and results. Patient care instructions given in writting by [facility] At Home document. [facility] Other Evaluation + Plan note No data available for this section [facility] Future Appointments Appointment Date:02/04/2022 02:30:00 PM Scheduled Provider: Location:[facility] Appointment Type:Urology FT [facility] evaluation + Plan note Future Appointments Appointment Date:08/06/2022 02:15:00 PM Scheduled Provider:Misael MAHER MD Location:[facility] Appointment Type:URO [facility] Future Appointments Appointment Date:11/25/2023 02:00:00 PM Scheduled Provider:FLORINDA BRAUN PA-C Location:[facility] Appointment Type:URO Office Visit [facility] evaluation + Plan note Future Appointments Appointment Date:03/08/2025 08:20:00 AM Scheduled Provider:FLORINDA BRAUN PA-C Location:[facility] Appointment Type:URO Office Visit Future Scheduled Tests Radiology* XR Abdomen 1 View 01/24/25 * US Renal 01/24/[address] [facility] evaluation noteNo assessment information available [facility] Work Phone: Evaluation note* Diagnosis Encounter for screening mammogram for malignant neoplasm of breast- Primary documented in this encounter [facility]* Diagnosis Abnormal mammogram of left breast- Primary documented in this encounter [facility]* Diagnosis Migraine without aura, not intractable, without status migrainosus documented in this encounter [facility]* Diagnosis Allergic rhinitis, unspecified documented in this encounter [facility]* Diagnosis Onset Date Resolution Status BMI 33.0-33.9,adult acute Depression acute HTN (hypertension) acute Migraine headache acute Obstructive sleep apnea acut e Restless sleeper acute [facility] Work Phone: History general Narrative - Reported* Type Description Date Medical History HTN (hypertension) Medical History Hypercholesterolemia Medical History Migraine headache Medical History HX of PE Medical History Anxiety Medical History Depression Medical History hyperthyroidism Surgical History hysterectomy Surgical History cholecystectomy Surgical History hiatal hernia repair Surgical History left knee torn meniscus Hospitalization History headaches Hospitalization History see above Hospitalization History blood clots Hospitalization History asthma [facility] Other History general Narrative - Reported* Type Description Date Medical History HTN (hypertension) Medical History Hypercholesterolemia Medical History Migraine headache Medical History HX of PE Medical History Anxiety Medical History Depression Medical History hyperthyroidism Medical History sleep apnea Surgical History hysterectomy Surgical History cholecystectomy Surgical History hiatal hernia repair Surgical History left knee torn meniscus Hospitalization History headaches Hospitalization History see above Hospitalization History blood clots Hospitalization History asthma [facility] Other Hospital Discharge instructions No data available for this section [facility] filedocumented in this encounter [facility] filedocument[facility] in this [facility] on filedocumented in this encounter [facility] on filedocumented in this encounter [facility]Not on filedocumented in this encounter [facility] [employer] [employer] [facility]Progress note No data available for this section [facility] Summary Purpose Family History No Family History Records Found Relationship Condition Age at Onset Recorded Date/T feroz father Diabetes mellitus Unknown Unknown Malignant neoplasm Unknown Not Specified Family history of mental disorder Unknow n Diabetes mellitus Unknown History of stroke Unknown Advance Directives No Advanced Directives Records Found Advance Directive Response Recorded Date/ Time Advance Directives No April 06 12:33pm Advance Directive Response Recorded Date/ Time Advance Directives No April 06 11:33am Chief Complaint and Reason for Visit Chief Complaint i51.9 Chief Complaint i51.9 Unspecified sleep apnea Chief Complaint LILO/ANNUAL Reason for Visit BMI 33.0-33.9,adult Depression HTN (hypertension) Migraine headache Obstructive sleep apnea Restless sleeper Additional Source Comments INFORMATION SOURCE (unrecogn ized section and content) DATE CREATED AUTHOR 01/13/2022 [facility] DATE CREATED AUTHOR AUTHOR'S ORGANIZ ATION 06/24/2022 [facility] DATE CREATED AUTHOR AUTHOR'S ORGANIZ ATION 12/22/[address] [facility] DATE CREATED AUTHOR AUTHOR'S ORGANIZ ATION 12/27/2022 [facility] DATE CREATED AUTHOR AUTHOR'S ORGANIZ ATION 11/19/2023 [facility] DATE CREATED AUTHOR AUTHOR'S ORGANIZ ATION 01/13/2024 [facility] DATE CREATED AUTHOR AUTHOR'S ORGANIZ ATION 01/20/2024 [facility] DATE CREATED AUTHOR AUTHOR'S ORGANIZ ATION 01/31/2024 [facility] REASON FOR VISIT (unrecogniz ed section and content) Reason Comments Med Refill Care Team (unrecognized sect ion and content) Team Status: Inactive Member Role Status Dates Gera Teresa DO Primary Care Provider Active NABEEL Aguilar OPERATIONS AND MAINTENANCE MANAGER-C Attending Provider Active Team Status: Active Member Role Status Dates Gera Teresa DO Primary Care Provider Active Team Status: Inactive Member Role Status Dates Gera Teresa DO Primary Care Provider Active Caitlyn Lnog MD Attending Provider Active Data Review Specialist Relationship Specialty Start Date End Date Barbara Peters APRN-FREIGHT CHECKER [address] [place] [address] PCP - General Internal Medicine 02/20/23 Data Review Specialist Relationship Specialty Start Date End Date Barbara Peters APRN-FREIGHT CHECKER [address] [place] [address] PCP - General Internal Medicine 02/20/23 Data Review Specialist Relationship Specialty Start Date End Date Barbara Peters APRN-FREIGHT CHECKER [address] [place] [address] PCP - General Internal Medicine 02/20/23 Team Status: Inactive Member Role Status Dates Gera Treesa DO Primary Care Provider Active Start: December 29, 2023 End: December 29, 2023 Teena Garcia NP Attending Provider Active Start: December 29, 2023 End: December 29, 2023 Goals (unrecognized section and content) Goals may be documented in a n alternate section FOR RECORDS PERTAINING TO PATIENTS WHO ARE OR HAVE BEEN ENROLLED IN A CHEMICAL DEPENDENCY/SUBSTANCEABUSE PROGRAM, SOME INFORMATION MAY BE OMITTED. This clinical summary was aggregated from multiple sources. Caution should be exercised in using it in the provision of clinical care. This summary normalizes information from multiple sources, and as a consequence, information in this document may materially change the coding, format and clinical context of patient data. In addition, data may be omitted in some cases. CLINICAL DECISIONS SHOULD BE BASED ON THE PRIMARY CLINICAL RECORDS. [email or web address] [facility]. provides no warranty or guarantee of the accuracy or completeness of information in this document.
[2024-02-02] MEDS: ALBUTEROL SULFATE 2.5 MG/3 ML VIAL NEB IH (21:57)
[2024-02-02] MEDS: BUDESONIDE 0.5 MG/2 ML AMPULE NEB IH (21:58)
[2024-02-02] MEDS: 0.9 % SODIUM CHLORIDE 1,000 ML 100 ML IV (22:54)
[2024-02-02] MEDS: CYPROHEPTADINE HCL 4 MG TABLET PO (22:54)
[2024-02-02] MEDS: MORPHINE SULFATE 2 MG/ML SYRINGE 4 MG IV (22:54)
[2024-02-03] VITALS (63 sets, daily range): BP systolic 108–157; BP diastolic 57–81; PULSE 68–87; TEMP 36.7–37.1; O2SAT 85–99
--- NOTE | 2024-02-03 | FL_ITS ---
The [address] [address] Patient Name: POOJA JOSEPH MRN: [id number] date: 1960 Sex: F Assigned Patient Location: [place] Current Patient Location: Accession/Order Number: [id number] Exam Date: 02/03/2024 17:00 Report Date: 02/06/2024 08:17 At the request of: JUSTIN YI Procedure: FL fluoroscopy <1hr NON-READ EXAM: FL fluoroscopy <1hr NON-READ HISTORY: TECHNIQUE: FINDINGS: Please see Operative Report. Electronically authenticated by: RADIOLOGIST NO Date: 02/06/2024 08:17
[2024-02-03] MEDS: ONDANSETRON PF 4 MG/2 ML VIAL IV (04:24)
[2024-02-03] MEDS: MORPHINE SULFATE 2 MG/ML SYRINGE 4 MG IV (04:24)
[2024-02-03 04:54] LABS: Basophils Percent Auto 0.2 % (0.2-2.0); Hemoglobin 12.6 g/dL (12.0-16.0); Immature Granulocytes Abs Auto 0.06 10^3/uL (0.00-0.03); Immature Granulocytes Pct Auto 0.4 % (0.0-0.5); Lymphocytes Percent Auto 6.1 % (20.5-60.0); Mean Corpuscular HGB Conc 31.5 g/dL (29.9-35.2); Mean Corpuscular Hemoglobin 28.8 pg (26.7-34.0); Mean Corpuscular Volume 91.3 fL (81.0-99.0); Mean Platelet Volume 11.3 fL (9.5-13.5); Monocytes Absolute Auto 1.3 10^3/uL (0.3-0.8); Monocytes Percent Auto 7.7 % (1.7-12.0); Neutrophils Absolute Auto 14.4 10^3/uL (1.4-6.5); Neutrophils Percent Auto 85.6 % (43.0-75.0); Platelet Count 228 10^3/uL (150-450); Red Blood Count 4.38 10^6/uL (4.20-5.40); Red Cell Distribution Width 13.7 % (11.0-15.0); White Blood Count 16.9 10^3/uL (4.0-11.0)
[2024-02-03 05:10] LABS: Alanine Aminotransferase 36 U/L (14-59); Albumin Globulin Ratio 0.7; Albumin Level 2.7 g/dL (3.4-5.0); Alkaline Phosphatase 86 U/L (46-116); Anion Gap 14.7; Aspartate Amino Transferase 19 U/L (15-37); BUN Creatinine Ratio 18.8; Bilirubin Total 0.6 mg/dL (0.2-1.0); Calcium 8.5 mg/dL (8.5-10.1); Carbon Dioxide 25.9 mmol/L (21.0-32.0); Chloride 104 mmol/L (98-107); Estimated GFR (African America >60 (>=60); Estimated GFR (Non-African Ame >60 (>=60); Globulin 3.9 g/dL; Glucose 186 mg/dL (74-106); Potassium 4.6 mmol/L (3.5-5.1); Sodium 140 mmol/L (136-145); Total Protein 6.6 g/dL (6.4-8.2)
[2024-02-03] MEDS: ALBUTEROL SULFATE 2.5 MG/3 ML VIAL NEB IH ×3 (05:42→20:15)
[2024-02-03 07:28] LABS: Lactate/Lactic Acid 2.3 mmol/L (0.4-2.0)
[2024-02-03 08:43] LABS: Lactate/Lactic Acid 1.3 mmol/L (0.4-2.0)
[2024-02-03] MEDS: 0.9 % SODIUM CHLORIDE 1,000 ML 100 ML IV ×2 (08:52→21:26)
--- NOTE | 2024-02-03 09:50 | CM.NOTE ---
Rounds made with Dr. Wilkerson, awaiting urology to consult on pt for further plan of care.
[2024-02-03] MEDS: MORPHINE SULFATE 4 MG/ML VIAL IV (10:53)
[2024-02-03] MEDS: BUDESONIDE 0.5 MG/2 ML AMPULE NEB IH ×2 (10:54→20:15)
--- NOTE | 2024-02-03 11:16 | P.HP_ITS ---
<Statement entered by Geraldo Wilkerson MD - 02/04/24 11:31> This documentation has been reviewed and approved. Patient seen and evaluated at the bedside-she feels very uncomfortable at the time of my evaluation. Case discussed with nurse practitioner. Agree with input and findings. Patient also has significant respiratory distress and uncontrolled hypertension on admission. Resulting in hypertensive urgency. Continue with medications and monitor here with as needed medications. HPI H&P: HPI History of Present Illness Chief complaint: Flank Pain, HX Kidney Stones RENAL COLIC Narrative: 02/03/24 0935 This is a 63-year-old female patient with a past medical history as outlined below including asthma, hypertension, history of PE not currently on anticoagulation, and recurrent kidney stones followed annually by Dr. Godfrey; who presented to the ED yesterday afternoon complaining of severe right flank pain with abrupt onset around 1400. She presented to the ED for further evaluation as her pain was severe and constant. Workup in the ED revealed hypertensive urgency initially (200/100), leukocytosis (16.2), lactic acidosis (2.3), and a positive UA. A CT of the abdomen and pelvis revealed a 4 mm right distal ureter obstructing stone and moderate hydr onephrosis on the right. The patient was admitted initially in observation last night with Dr. Alfonso, urologist, on consult. We have changed that status to inpatient due to the likelihood of surgical intervention by urology and close monitoring for sepsis symptoms after this procedure. At the time of my exam the patient is resting quietly in bed. She reports that her pain is adequately controlled at this time with the current pain modality. She reports onset of acute right flank pain around 2:00 yesterday afternoon with associated decrease in urine output, just dribbles for the rest of the afternoon. She experienced some nausea but no vomiting. She denies chest pain, shortness of breath, dizziness, or diarrhea. She is n.p.o. at this time for likely surgical intervention per the urology service later today. Opioid HPI Opioid Management Most Recent Opioid Data: Last Pain Scale 6 02/03/24 11:06 Last Pain Assessment 02/03/24 11:06 Last ED Pain Assessment 02/02/24 18:59 Last MAR Pain Assessment 02/03/24 10:53 Last ORT Total Score 0 02/02/24 21:48 Last ORT Risk Category Low Risk 02/02/24 21:48 Review of Systems ROS Status of ROS 10 or more systems reviewed and unremark able except as noted in history and below [facility] Medical History (Updated 02/03/24 @ 11:51 by Keena Boss NP) Hyperthyroidism ?E05.90 - Thyrotoxicosis, unspecified without thyrotoxic crisis or storm (ICD-10) Gall stones ?K80.20 - Calculus of gallbladder without cholecystitis without obstruction (ICD-10) Asthma ?J45.909 - Unspecified asthma, uncomplicated (ICD-10) Endometriosis determined by laparoscopy ?N80.9 - Endometriosis, unspecified (ICD-10) High blood pressure ?I10 - Essential (primary) hypertension (ICD-10) Pulmonary embolus ?I26.99 - Other pulmonary embolism without acute cor pulmonale (ICD-10) Surgical History (Updated 02/02/24 @ 23:59 by Yarely Warner) H/O laparoscopy ?Z98.890 - Other specified postprocedural states (ICD-10) Hx of cholecystectomy ?Z90.49 - Acquired absence of other specified parts of digestive tract (ICD- 10) Hx of appendectomy ?Z90.49 - Acquired absence of other specified parts of digestive tract (ICD- 10) H/O: hysterectomy ?Z90.710 - Acquired absence of both cervix and uterus (ICD-10) H/O lateral meniscus repair of left knee ?Z98.890 - Other specified postprocedural states (ICD-10) Family History (Updated 02/02/24 @ 22:44 by Yarely Warner) Father Family history of cancer Family history of diabetes mellitus Mother Family history of diabetes mellitus Family history of stroke Social History (Updated 02/02/24 @ 22:46 by Yarely Warner) Within the past year, how often did you have a drink containing alcohol: never Score interpretation: A score less than 3 is consistent with normal alcohol consumption. 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 Highest level of school completed/degree received: some college, no degree Are you now , , , , never or living with a partner: In a typical week, how many times do you talk on the telephone with family, friends, or neighbors: 3 or more times per week How often do you get together with friends or relatives: once per week How often do you attend islam or taoist services: 4 or more times per year Little interest or pleasure in doing things: not at all Feeling down, depressed, or hopeless: not at all Feel stressed/tense/nervous/anxious/difficulty sleeping: only a little Do you think of yourself as: straight/heterosexual Gender Identity: female Meds Home Medications and Allergies Home Medications ?Medication ?Instructions ?Recorded ?Confirmed ?Type alendronate 70 mg tablet 70 mg PO .weekly 02/02/24 02/02/24 History aspirin 81 mg capsule 81 mg PO DAILY 02/02/24 02/02/24 History budesonide-formoterol HFA 160 2 puff inhalation Q12H 02/02/24 02/02/24 History mcg-4.5 mcg/actuation aerosol inhaler (Symbicort) cyproheptadine 4 mg tablet 4 mg PO .hs 02/02/24 02/02/24 History losartan 50 mg tablet 50 mg PO DAILY 02/02/24 02/02/24 History methimazole 10 mg tablet 10 mg PO .mwf 02/02/24 02/03/24 History montelukast 10 mg tablet 10 mg PO QPM 02/02/24 02/03/24 History Allergies Allergy/AdvReac Type Severity Reaction Status Date / Time No Known Drug Allergies Allergy Verified 02/02/24 15:59 Exam Constitutional Vital Signs, click to edit/add: Last Vital Signs Temp 98.2 F 02/03/24 08:57 Pulse 77 02/03/24 10:56 Resp 18 02/03/24 08:57 BP 128/67 02/03/24 08:57 Pulse Ox 94 L 02/03/24 10:59 O2 Del Method Nasal Cannula 02/03/24 10:56 O2 Flow Rate 2 02/03/24 10:56 Common normals: no apparent distress, oriented x3, alert and well nourished General appearance: cooperative Orientation/consciousness: Yes awake HENMT Common normals: normocephalic, head/scalp atraumatic, hearing grossly normal bilaterally, external nose normal and moist oral mucous membranes Eye Common normals: PERRL, EOMs intact bilaterally, conjunctivae normal and no scleral icterus Alignment: alignment normal Neck & C-Spine Common normals: full ROM, supple and no JVD Chest Common normals: inspection of chest normal Chest: symmetrical chest wall rise Respiratory Common normals: normal respiratory effort, no retractions, no use of accessory m uscles and clear to auscultation bilaterally Effort & inspection: able to speak in complete sentences Cardio Common normals: no JVD, regular rate, regular rhythm, S1 normal heart sound, S2 normal heart sound, no gallops, no clicks, no rub and peripheral pulses 2+ throughout Heart sounds: murmur (HSM 2/6) GI Common normals: Normal to inspection, nondistended, normoactive bowel sounds present, soft to palpation, no hepatosplenomegaly, no masses and no bruits Palpation: tender (Mild RUQ) Bladder/kidney exam: bladder normal to palpation and CVA tenderness on the right Back & Pelvis Common normals: thoracic and lumbar spine normal to inspection Extremity Common normals: normal capillary refill and no pedal edema General: normal exam except as noted; no clubbing and no cyanosis Neuro [place] Coma Scale: GCS not evaluated Common normals: CN's II-XII intact bilaterally, moves all extremities, no focal motor deficits and no sensory deficits noted Motor exam: strength 5/5 throughout Psych Common normals: mental status grossly normal, thought process normal, affect normal and activity/motor behavior normal Results Labs Labs: Short CBC 02/02/24 02/02/24 02/03/24 Range/Units 16:20 20:36 04:07 WBC 12.1 H 16.2 H 16.9 H (4.0-11.0) 10^3/uL Hgb 13.9 13.1 12.6 (12.0-16.0) g/dL Hct 43.7 41.9 40.0 (36.0-48.0) % Plt Count 313 225 228 (150-450) 10^3/uL BMP 02/02/24 02/02/24 02/03/24 16:20 20:36 04:07 Sodium 139 137 140 Potassium 3.8 4.5 4.6 Chloride 103 105 104 Carbon Dioxide 26.6 25.4 25.9 BUN 15.0 17.0 16.0 Creatinine 0.76 0.79 0.85 Glucose 158 H 186 H 186 H Calcium 9.2 8.7 8.5 Liver Function 02/02/24 02/03/24 Range/Units 20:36 04:07 Total Bilirubin 0.3 0.6 (0.2-1.0) mg/dL AST 20 19 (15-37) U/L ALT 40 36 (14-59) U/L Alkaline Phosphatase 88 86 (46-116) U/L Albumin 2.9 L 2.7 L (3.4-5.0) g/dL Urine 02/02/24 Range/Units 16:20 Urine Color Yellow (YELLOW) Urine Clarity Clear (CLEAR) Urine pH 6.0 (5.0-9.0) Ur Specific [place] >=1.030 A (1.005-1.025) Urine Protein 30 A (NEG/TRACE) mg/dL Urine Glucose (UA) Negative (NEGATIVE) mg/dL Laboratory Tests 02/02/24 16:20 Urine Ketones Trace A Urine Occult Blood Large A Urine Nitrite Negative Ur Leukocyte Esterase Small A Urine WBC 2-5 A Urine Bacteria Moderate A Ur Culture Indicated? Yes Pulse Oximetry Attestation: I have reviewed the pertinent pulse oximetry results. Imaging CT scan - abdomen: Attestation: I have reviewed the pertinent imaging results. Radiologist's impression: IMPRESSION: Obstructing 4 mm right distal ureteral stone resulting in moderate hydronephrosis. Assessment and Plan Assessment and Plan (1) Acute unilateral obstructive uropathy: Assessment and Plan: Acute * Adm inpatient * We expect greater than a 2 midnight stay for medically necessary hospital care including IVFs, IV ABX, and specialty urology care/intervention. Pt is at high risk for post-op sepsis and must be monitored closely. * CT abdomen imaging notes a 4mm obstructing stone in the distal ureter * Hx of recurrent renal calculi for more than 20 yrs. Follows with urology yearly - last seen in November by Dr Godfrey * Consult Dr Alfonso, urologist - we appreciate his assistance with this pt's care * NPO for possible surgical intervention later today * Medically stable for surgery * IVP Morphine for pain * Zofran for nausea * IVPB Rocephin for concurrent UTI * CBC, CMP daily (2) Hydronephrosis due to obstruction of ureter: Assessment and Plan: Acute * See obstructive uropathy above (3) UTI (urinary tract infection): Assessment and Plan: Acute * See obstructive uropathy above * IVPB Rocephin - UA C&S pending Qualifiers: Urinary tract infection type: acute cystitis Hematuria presence: with hematuria Qualified Code(s): N30.01 - Acute cystitis with hematuria (4) Asthma: Assessment and Plan: Chronic * Continue home cryptoheptadine, montelukast, Symbicort Qualifiers: Asthma severity: unspecified severity Asthma persistence: unspecified Asthma complication type: unspecified Qualified Code(s): J45.909 - Unspecified asthma, uncomplicated (5) High blood pressure: Assessment and Plan: Chronic * Continue home losartan Qualifiers: Hypertension type: primary hypertension Qualified Code(s): I10 - Essential (primary) hypertension (6) Hyperthyroidism: Assessment and Plan: Chronic * Continue home methimazole
--- NOTE | 2024-02-03 17:50 | PM.CN ---
Consult Note: HPI Data of Consult Patient: new to practice Consult date: 02/03/24 Requesting Physician: Keena Boss NP Primary Care Provider: RAJESH BURCIAGA Consult Narrative Reason for consult: Obstructing right ureteral calculus Narrative: This lady developed acute right abdominal painAnd gross hematuria over a week ago. The pain subsided and she thought maybe she was done with the situation. The pain did recur just the other day. It became intense and unbearable. She presented to the emergency room. She denied fevers and shaking chills. In the ER, her white count was 12.1 thousand and her creatinine was normal.She had a CT scan done which showed a 4 mm right distal ureteral calculus with ipsilateral hydronephrosis. There was also a contralateral nonobstructing renal stone.She has had pain the entire time she has been in the hospital. Her white count has risen from 12.1 thousand up to 16.9 thousand today despite Rocephin. Urology was consulted for the above reasons.Upon questioning her further she states that she has had 4 other bouts of stones in the past. One of them required what sounds like ureteroscopic stone extraction and stent placement. She is unsure of what happened to another 1 and 2 of them she may have passed on her own. cc:: CC: Keena Boss NP Review of Systems ROS Status of ROS 10 or more systems reviewed and unremarkable except as noted in history and below [facility] Medical History Hyperthyroidism ?E05.90 - Thyrotoxicosis, unspecified without thyrotoxic crisis or storm (ICD-10) Gall stones ?K80.20 - Calculus of gallbladder without cholecystitis without obstruction (ICD-10) Asthma ?J45.909 - Unspecified asthma, uncomplicated (ICD-10) Endometriosis determined by laparoscopy ?N80.9 - Endometriosis, unspecified (ICD-10) High blood pressure ?I10 - Essential (primary) hypertension (ICD-10) Pulmonary embolus ?I26.99 - Other pulmonary embolism without acute cor pulmonale (ICD-10) Surgical History H/O laparoscopy ?Z98.890 - Other specified postprocedural states (ICD-10) Hx of cholecystectomy ?Z90.49 - Acquired absence of other specified parts of digestive tract (ICD-10) Hx of appendectomy ?Z90.49 - Acquired absence of other specified parts of digestive tract (ICD-10) H/O: hysterectomy ?Z90.710 - Acquired absence of both cervix and uterus (ICD-10) H/O lateral meniscus repair of left knee ?Z98.890 - Other specified postprocedural states (ICD-10) Family History Father Family history of cancer Family history of diabetes mellitus Mother Family history of diabetes mellitus Family history of stroke Social History Within the past year, how often did you have a drink containing alcohol: never Score interpretation: A score less than 3 is consistent with normal alcohol consumption. 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 Highest level of school completed/degree received: some college, no degree Are you now , , , , never or living with a partner: In a typical week, how many times do you talk on the telephone with family, friends, or neighbors: 3 or more times per week How often do you get together with friends or relatives: once per week How often do you attend confucianist or mu-ism services: 4 or more times per year Little interest or pleasure in doing things: not at all Feeling down, depressed, or hopeless: not at all Feel stressed/tense/nervous/anxious/difficulty sleeping: only a little Do you think of yourself as: straight/heterosexual Gender Identity: female Meds Home Medications and Allergies Home Medications ?Medication ?Instructions ?Recorded ?Confirmed ?Type alendronate 70 mg tablet 70 mg PO .weekly 02/02/24 02/02/24 History aspirin 81 mg capsule 81 mg PO DAILY 02/02/24 02/02/24 History budesonide-formoterol HFA 160 2 puff inhalation Q12H 02/02/24 02/02/24 History mcg-4.5 mcg/actuation aerosol inhaler (Symbicort) cyproheptadine 4 mg tablet 4 mg PO .hs 02/02/24 02/02/24 History losartan 50 mg tablet 50 mg PO DAILY 02/02/24 02/02/24 History methimazole 10 mg tablet 10 mg PO .mwf 02/02/24 02/03/24 History montelukast 10 mg tablet 10 mg PO QPM 02/02/24 02/03/24 History Allergies Allergy/AdvReac Type Severity Reaction Status Date / Time No Known Drug Allergies Allergy Verified 02/02/24 15:59 Exam Narrative Exam Narrative: She is resting comfortably in the bed. She is in no acute distress. Her vitals are stable. Her abdomen is soft and very tender in the right lower quadrant and right CVA region. No masses are palpable. Constitutional Vital Signs, click to edit/add: Last Vital Signs Temp 98.8 F 02/03/24 17:39 Pulse 81 02/03/24 17:39 Resp 17 02/03/24 17:39 BP 131/79 02/03/24 17:39 Pulse Ox 92 L 02/03/24 17:39 O2 Del Method Room Air 02/03/24 17:39 O2 Flow Rate 2 02/03/24 14:00 Results Labs Labs: Short CBC 02/02/24 02/03/24 Range/Units 20:36 04:07 WBC 16.2 H 16.9 H (4.0-11.0) 10^3/uL Hgb 13.1 12.6 (12.0-16.0) g/dL Hct 41.9 40.0 (36.0-48.0) % Plt Count 225 228 (150-450) 10^3/uL BMP 02/02/24 02/03/24 20:36 04:07 Sodium 137 140 Potassium 4.5 4.6 Chloride 105 104 Carbon Dioxide 25.4 25.9 BUN 17.0 16.0 Creatinine 0.79 0.85 Glucose 186 H 186 H Calcium 8.7 8.5 Liver Function 02/02/24 02/03/24 Range/Units 20:36 04:07 Total Bilirubin 0.3 0.6 (0.2-1.0) mg/dL AST 20 19 (15-37) U/L ALT 40 36 (14-59) U/L Alkaline Phosphatase 88 86 (46-116) U/L Albumin 2.9 L 2.7 L (3.4-5.0) g/dL Assessment and Plan Assessment and Plan (1) Acute unilateral obstructive uropathy: Assessment and Plan: She has a 4 mm distal right ureteral calculus causing pain and hydronephrosis.She is getting added onto the OR schedule today for definitive ureteroscopic stone manipulation and stent placement. (2) Hydronephrosis due to obstruction of ureter: Assessment and Plan: Her hydronephrosis is from her obstructing stone. This should resolve once the stone is removed and a stent is placed. (3) UTI (urinary tract infection): Assessment and Plan: A urinary tract infection could be the result of her obstructing stone.In light of her rising white count despite Rocephin, I am going to give her a dose of IV Levaquin. Over 30 minutes of clinical time was spent talking with the ER doctor, the nurses and the patient. Also her chart and CAT scan were reviewed. Thank you for letting me take part in her care. Qualifiers: Urinary tract infection type: acute cystitis Hematuria presence: with hematuria Qualified Code(s): N30.01 - Acute cystitis with hematuria (4) Asthma: Qualifiers: Asthma severity: unspecified severity Asthma persistence: unspecified Asthma complication type: unspecified Qualified Code(s): J45.909 - Unspecified asthma, uncomplicated (5) High blood pressure: Qualifiers: Hypertension type: primary hypertension Qualified Code(s): I10 - Essential (primary) hypertension (6) Hyperthyroidism:
--- NOTE | 2024-02-03 17:57 | P.URON_ITS ---
Urology Surgery Operative Note Operative Note Procedure Date: 02/03/24 Time Out Performed: yes Pre-op Diagnosis: Obstructing right distal ureteral calculus Post-op Diagnosis: other (Distal right ureteral stricture and passed ureteral calculus) Procedures performed: 1. Cystoscopy. 2. Right rigid ureteral dilation of stricture. 3. Right ureteroscopy. 4. Placement of 6 [place] variable length right ureteral stent Anesthesia: General-LMA Primary Surgeon: Magan Alfonso Complications: None Estimated blood loss (mL): 0 Findings: 1. Distal right ureteral stricture. 2. Passed ureteral calculus. Specimens: None Drains: 6 [place] variable length right ureteral stent Indications for Procedures: This lady has an obstructing distal right ureteral calculus causing pain, hydro and rising white count. She now presents for cystoscopy and right stent placement and probable definitive ureteroscopic stone manipulation. She has signed an informed consent after all risks were explained. Detailed description of Procedure: The patient was brought to the operating room and placed on the operating room table in the supine position. SCDs were placed on the lower extremities and turned on and functioning during the entire case. Timeout was done by all parties in the room. We all agreed upon the patient's identification and the planned procedures for this patient. Genn. anesthesia was then administered. The patient was then repositioned into the modified dorsal lithotomy position. All pressure points were satisfactorily padded. Genitalia were sterilely prepped and draped in usual fashion.I started by passing a 22 [place]amese Olympus cystoscope per urethra and into the bladder. Panendoscopy in the bladder showed no evidence of any tumors or stones. Her right UO was flame red. I then passed a Glidewire through the scope and cannulated the right UO. The wire ascended up to the kidney without difficulty. There was an E flux of cloudy urine at this time. I then used an 8 and 10 [place]e rigid dilator to dilate the distal right ureter. 1 could feel it pop through significantly narrowed area. The cystoscope was removed. I then passed a semirigid ureteroscope adjacent to the wire through the urethra into the bladder and into the right ureter. The distal 2 to 3 cm were flame red. Proximal to this the ureter appeared normal. I scope all the way up to the UPJ and back and found no evidence of any stone. The ureteroscope was removed. I then backloaded the cystoscope over the wire and passed it into the bladder. I then slid a 6 [place] variable length ureteral stent over the wire up into the kidney. The wire was removed and there were good curls in the kidney and in the bladder. The bladder was drained of its contents and the scope was then removed. She was then transferred to a [facility] bed and wheeled to PACU in stable condition.
[2024-02-03] MEDS: CEFTRIAXONE 1,000 MG in 0.9 % SODIUM CHLORIDE 50 ML 100 MG IV (18:31)
[2024-02-03] MEDS: LEVOFLOXACIN 500 MG TABLET PO (18:46)
[2024-02-03] MEDS: CYPROHEPTADINE HCL 4 MG TABLET PO (21:27)
[2024-02-04 03:41] VITALS: BP 122/75; PULSE 76; TEMP 37; O2SAT 91
[2024-02-04 04:40] VITALS: PULSE 75; O2SAT 93
[2024-02-04] MEDS: ALBUTEROL SULFATE 2.5 MG/3 ML VIAL NEB IH (04:40)
[2024-02-04 04:53] VITALS: PULSE 78; O2SAT 95
[2024-02-04 05:23] LABS: Basophils Percent Auto 0.2 % (0.2-2.0); Eosinophils Absolute Auto 0.2 10^3/uL (0.0-0.7); Eosinophils Percent Auto 1.9 % (0.9-7.0); Hemoglobin 10.7 g/dL (12.0-16.0); Immature Granulocytes Abs Auto 0.02 10^3/uL (0.00-0.03); Immature Granulocytes Pct Auto 0.2 % (0.0-0.5); Lymphocytes Absolute Auto 1.6 10^3/uL (1.2-3.8); Lymphocytes Percent Auto 19.5 % (20.5-60.0); Mean Corpuscular HGB Conc 30.6 g/dL (29.9-35.2); Mean Corpuscular Hemoglobin 28.3 pg (26.7-34.0); Mean Corpuscular Volume 92.6 fL (81.0-99.0); Mean Platelet Volume 10.3 fL (9.5-13.5); Monocytes Absolute Auto 0.8 10^3/uL (0.3-0.8); Monocytes Percent Auto 9.7 % (1.7-12.0); Neutrophils Absolute Auto 5.8 10^3/uL (1.4-6.5); Neutrophils Percent Auto 68.5 % (43.0-75.0); Platelet Count 237 10^3/uL (150-450); Red Blood Count 3.78 10^6/uL (4.20-5.40); White Blood Count 8.4 10^3/uL (4.0-11.0)
[2024-02-04 05:45] LABS: Alanine Aminotransferase 25 U/L (14-59); Albumin Globulin Ratio 0.7; Albumin Level 2.2 g/dL (3.4-5.0); Alkaline Phosphatase 65 U/L (46-116); Anion Gap 9.9; Aspartate Amino Transferase 10 U/L (15-37); BUN Creatinine Ratio 18.8; Bilirubin Total 0.3 mg/dL (0.2-1.0); Carbon Dioxide 27.7 mmol/L (21.0-32.0); Chloride 108 mmol/L (98-107); Estimated GFR (African America >60 (>=60); Estimated GFR (Non-African Ame >60 (>=60); Globulin 3.2 g/dL; Glucose 105 mg/dL (74-106); Potassium 3.6 mmol/L (3.5-5.1); Sodium 142 mmol/L (136-145); Total Protein 5.4 g/dL (6.4-8.2)
[2024-02-04] MEDS: DOCUSATE SODIUM 100 MG CAPSULE PO (08:38)
[2024-02-04] MEDS: ASPIRIN 81 MG TABLET.DR PO (08:38)
[2024-02-04] MEDS: MONTELUKAST SODIUM 10 MG TABLET PO (08:38)
[2024-02-04] MEDS: LOSARTAN POTASSIUM 50 MG TABLET PO (08:38)
[2024-02-04] MEDS: LEVOFLOXACIN 500 MG TABLET PO (08:38)
[2024-02-04] MEDS: METHIMAZOLE 5 MG TABLET 10 MG PO (08:38)
--- NOTE | 2024-02-04 08:41 | PM.DS1 ---
DS: Providers Provider Date of admission: 02/03/24 10:13 Primary care physician: RAJESH BURCIAGA Consults: 02/02/24 20:16 Consult to Urology Routine Consulting Provider: Magan Alfonso Reason for consultation: hydronephrosis, +stone Has provider been notified: Yes Discharging clinician: Keena Boss DS: Diagnosis Discharge Diagnosis (1) Acute unilateral obstructive uropathy: (2) Hydronephrosis due to obstruction of ureter: (3) UTI (urinary tract infection): Qualifiers: Hematuria presence: with hematuria Urinary tract infection type: acute cystitis Qualified Code(s): N30.01 - Acute cystitis with hematuria (4) Asthma: Qualifiers: Asthma complication type: unspecified Asthma persistence: unspecified Asthma severity: unspecified severity Qualified Code(s): J45.909 - Unspecified asthma, uncomplicated (5) High blood pressure: Qualifiers: Hypertension type: primary hypertension Qualified Code(s): I10 - Essential (primary) hypertension (6) Hyperthyroidism: DS: Summary Hospital Course Hospital Course: The pt was admitted with unilateral obstructive uropathy and hydronephrosis, along with a UTI. She was treated with IVFs and IV Rocephin and urology was consulted for definitive management. She was taken to the OR on 02/03/[address] Alfonso for a cystoscopy and ureteral stent placement. Her hydronephrosis resolved and she experienced complete resolution of her associated pain. Dr Alfonso added Levaquin as her leukocytosis did not significantly improve with Rocephin alone. As the pt was doing well post opertively and her symptoms had resolved, she was discharged home in stable condition. Dr Alfonso prescribed a course of Levaquin and Vesicare and discharge and the pt is to follow up with him within 2 weeks. Time Spent with Patient Time attestation: Total time spent providing and/or coordinating discharge services: Time spent: greater than 30 minutes Specific discharge activities: Physical exam, discussion of discharge plan, questions answered. Exam Constitutional Vital Signs, click to edit/add: Last Vital Signs Temp 98.6 F 02/04/24 03:41 Pulse 78 02/04/24 04:53 Resp 14 02/04/24 04:53 BP 122/75 02/04/24 03:41 Pulse Ox 95 02/04/24 04:53 O2 Del Method Room Air 02/04/24 04:53 O2 Flow Rate 2 02/03/24 14:00 Common normals: no apparent distress, oriented x3 and alert General appearance: cooperative Orientation/consciousness: Yes awake HENMT Common normals: normocephalic and head/scalp atraumatic Eye Common normals: PERRL, EOMs intact bilaterally, conjunctivae normal and no scleral icterus Neck & C-Spine Common normals: no JVD Respiratory Common normals: normal respiratory effort, no use of accessory muscles and clear to auscultation bilaterally Effort & inspection: able to speak in complete sentences and symmetric chest movement Cardio Common normals: no JVD, regular rate, regular rhythm, S1 normal heart sound, S2 normal heart sound and peripheral pulses 2+ throughout Heart sounds: murmur (HSM 2/6) GI Common normals: Normal to inspection, nondistended, normoactive bowel sounds present, soft to palpation and non-tender Common normals: no CVA tenderness Bladder/kidney exam: bladder normal to palpation Extremity Common normals: normal to inspection, full ROM, normal capillary refill and no pedal edema General: no clubbing and no cyanosis Neuro Common normals: moves all extremities, no focal motor deficits and no sensory deficits noted Speech: speech normal Psych Common normals: mental status grossly normal and activity/motor behavior normal DS: Data Data Completed and Pending Labs on day of discharge: Labs from last 24 hours 02/04/24 02/03/24 04:33 08:15 WBC 8.4 RBC 3.78 L Hgb 10.7 L Hct 35.0 L MCV 92.6 MCH 28.3 MCHC 30.6 RDW 14.0 Plt Count 237 MPV 10.3 Neut % (Auto) 68.5 Lymph % (Auto) 19.5 L [place] % (Auto) 9.7 Eos % (Auto) 1.9 Baso % (Auto) 0.2 Neut # (Auto) 5.8 Lymph # (Auto) 1.6 [place] # (Auto) 0.8 Eos # (Auto) 0.2 Baso # (Auto) 0.0 Abs Immat Gran (auto) 0.02 Imm/Tot Granulo (auto) 0.2 Sodium 142 Potassium 3.6 Chloride 108 H Carbon Dioxide 27.7 Anion Gap 9.9 BUN 12.0 Creatinine 0.64 Est GFR ( Amer) >60 Est GFR (Non-Af Amer) >60 BUN/Creatinine Ratio 18.8 Glucose 105 Lactate 1.3 Calcium 8.0 L Total Bilirubin 0.3 AST 10 L ALT 25 Alkaline Phosphatase 65 Total Protein 5.4 L Albumin 2.2 L Globulin 3.2 Albumin/Globulin Ratio 0.7 Discharge Plan Discharge Disposition: Home, Self-Care Condition: Good Discharge Medications: New levofloxacin 500 mg tablet 500 mg PO DAILY 5 Days Qty: 5 0RF solifenacin [Vesicare] 10 mg tablet 10 mg PO DAILY Qty: 14 0RF Continued alendronate 70 mg tablet 70 mg PO .weekly Patient Comments: takes it on friday budesonide-formoterol [Symbicort] 160-4.5 mcg/actuation HFA aerosol inhaler 2 puff INHALATION Q12H cyproheptadine 4 mg tablet 4 mg PO .hs losartan 50 mg tablet 50 mg PO DAILY methimazole 10 mg tablet 10 mg PO .mwf Rx Instructions: takes 3 times a week on friday and friday montelukast 10 mg tablet 10 mg PO QPM aspirin 81 mg capsule 81 mg PO DAILY Activity: increase activity as tolerated Diet: advance to your usual diet Print Language: Estonian Patient Instructions: Renal Colic (ED), Hydronephrosis (DC), Ureteral Stent Placement (DC) Forms: Portal Instructions Follow Up Appointments: Dr. Alfonso' office will be calling the patient to schedule a follow up appt. [phone] Discharge Date/Time: 02/04/24 10:40
[2024-02-04] MEDS: ACETAMINOPHEN 325 MG TABLET 650 MG PO (08:45)
--- NOTE | 2024-02-04 09:36 | CM.NOTE ---
Rounds made with Dr. Wilkerson. Plan for discharge today. Ms. Reece in agreement.
--- NOTE | 2024-02-10 15:43 | CM.DCFOLLOWU ---
1st attempt, no answer 02/10/24
--- NOTE | 2024-02-11 14:06 | CM.DCFOLLOWU ---
Person spoke with:patient How are you feeling? well How is your pain? no pain Did you understand your discharge instructions? yes Do you have any questions about your discharge instructions? no Were you given any prescriptions at discharge? yes Were you able to get your prescriptions filled? yes Do you understand how to take your medications as ordered? yes Do you have any questions about your follow up appointment and do you plan to keep your follow up appointment? no questions, follow up on 02/19/24 Is there anything else that you would like to discuss? no Questions/Comments/Concerns/Other: N/A
== END 2024-02-04 10:40 | disposition home or self-care (01) | DRG 661 ==
LOC: ER 18:48 → MS 21:44
PROVIDERS: Nurse Practitioner Acute Care; Urology; Admitting Provider Family Medicine; Emergency Provider Emergency Medicine; PCP Family Medicine; Visit Provider Nurse Practitioner
PROC: 0T768DZ Dilation of Right Ureter with Intraluminal Device, Via Natural or Artificial Opening Endoscopic (ICD-10-PCS; principal; 2024-02-03 16:45)
DX: N13.6 Pyonephrosis (principal); J45.909 Unspecified asthma, uncomplicated; I10 Essential (primary) hypertension; E05.90 Thyrotoxicosis, unspecified without thyrotoxic crisis or storm; Z79.899 Other long term (current) drug therapy; I16.0 Hypertensive urgency; R06.03 Acute respiratory distress; Z86.711 Personal history of pulmonary embolism; Z90.49 Acquired absence of other specified parts of digestive tract; Z90.710 Acquired absence of both cervix and uterus; Z87.891 Personal history of nicotine dependence; Z79.82 Long term (current) use of aspirin; Z87.442 Personal history of urinary calculi; Z83.3 Family history of diabetes mellitus; Z80.9 Family history of malignant neoplasm, unspecified; Z82.3 Family history of stroke
CPT/HCPCS: 36415; 74176; 76000; 80048; 80053; 81001; 83605; 85007; 85025; 85027; 87086; 94640; 94761; 96365; 96368; 96375; 96376; 99285; G0378; J1170; J2704

== ENCOUNTER 2024-02-19 13:44 | Day surgery (SDC) | payer OTHER, SELFPAY ==
[2024-02-19 14:13] VITALS: BP 130/83; PULSE 81; TEMP 36.3; O2SAT 95
[2024-02-19] MEDS: LIDOCAINE 2% JELLY 20 ML UR (16:49)
--- NOTE | 2024-02-19 16:55 | PM.URSON ---
Urology Surgery Operative Note Operative Note Procedure Date: 02/19/24 Time Out Performed: yes Pre-op Diagnosis: Status post ureteroscopy and right stent placement Post-op Diagnosis: same as pre-op Procedures performed: 1. Cystoscopy. 2. Right stent removal Anesthesia: local Primary Surgeon: Magan Alfonso Complications: None Estimated blood loss (mL): 0 Findings: non- encrusted stent Indications for Procedures: This lady had a distal right ureteral calculus which she was able to pass but did not realize. The stone caused a stricture which was mimicking stone pain. She underwent ureteroscopy, ureteral dilation and right stent placement several weeks ago.She now presents for cystoscopy and right stent removal. Detailed description of Procedure: The patient was kept on the gurney bed and brought to the endoscopy suite. She was in the supine position. Her legs were frog-legged and her perineum and genitalia were sterilely prepped and draped in the usual fashion. 2% lidocaine gel was passed per urethra. Timeout was done by all parties in the room. We all agreed upon the patient's identification and the planned procedures for this patient. I started by passing a flexible cystoscope per urethra and into the bladder. The stent was not none encrusted. I passed a flexible grasping forceps through the scope and grasped the stent. The scope and stent were then removed without difficulty. She was then discharged to home. She will follow-up with Dr. Godfrey within a few months.
[2024-02-19 16:57] VITALS: BP 168/76; BP 174/90; PULSE 88; O2SAT 97
== END 2024-02-19 16:58 | disposition home or self-care (01) ==
PROVIDERS: PCP Family Medicine; Visit Provider Urology
PROC: (CPT 52310; principal; 2024-02-19 14:30)
DX: Z46.6 Encounter for fitting and adjustment of urinary device (principal)
CPT/HCPCS: 52310

== ENCOUNTER 2024-03-05 14:31 | Outpatient (OUT) | payer OTHER, SELFPAY ==
--- NOTE | 2024-03-05 14:38 | XR_ITS ---
The [address] [address] Patient Name: POOJA JOSEPH MRN: [id number] date: 1960 Sex: F Assigned Patient Location: [facility] Current Patient Location: Accession/Order Number: [id number] Exam Date: 03/05/2024 14:50 Report Date: 03/08/2024 07:32 At the request of: HALLIE LLOYD Procedure: XR abdomen 1V EXAMINATION: XR abdomen 1V HISTORY: Kidney Stone COMPARISON: 11/22/2023 FINDINGS: KIDNEY/URETER - RIGHT: No visible renal or ureteral calcifications. KIDNEY/URETER - LEFT: Punctate upper pole nephrolith measuring 5 mm PELVIS: No visible ureteral calcifications. Any visible calcifications favor phleboliths. BOWEL: No abnormal dilation or deviation. BONES: No acute abnormality. OTHER: Negative. No abnormal gaseous collections. XR/XR abdomen 1V IMPRESSION: Stable left upper pole nephrolith Electronically authenticated by: ADRY LANGLEY Date: 03/08/2024 07:32
== END 2024-03-05 14:32 | disposition home or self-care (01) ==
LOC: RAD 14:32
PROVIDERS: PCP Family Medicine; Visit Provider Urology
DX: N20.0 Calculus of kidney (principal)
CPT/HCPCS: 74018

== ENCOUNTER 2024-12-13 10:32 | Emergency (ER) | payer OTHER, SELFPAY ==
[2024-12-13 10:34] VITALS: BP 150/90; PULSE 87; TEMP 36.8; O2SAT 96; BMI 24.9
--- NOTE | 2024-12-13 10:41 | XR_ITS ---
The [place] [id number] Patient Name: POOJA JOSEPH MRN: [facility]:[id number] date: 1960 Sex: F Assigned Patient Location: ED.MAIN Current Patient Location: ED.MAIN Accession/Order Number: [id number] Exam Date: 12/13/2024 11:07 Report Date: 12/13/2024 11:10 At the request of: KACEY CORDOVA MD Procedure: XR chest 1V PA CHEST: CLINICAL HISTORY: Chest pain radiating to left shoulder and down the arm. COMPARISON: None Evaluation is slightly limited by body habitus. The heart is borderline prominent. There is minor coarsening of interstitial markings. There are no priors to assess chronicity. There is no focal consolidation, sizable effusion or pneumothorax. The bony structures are osteopenic. XR/XR chest 1V IMPRESSION: BORDERLINE CARDIOMEGALY. MINIMAL NONSPECIFIC INTERSTITIAL CHANGE. NO OTHER ACUTE FINDINGS Impression dictated by: Sallie Stovall M.D.12/13/2024 11:10 AM Dictation Location: [place] [address] Electronically authenticated by: [id number] Y Date: 12/13/2024 11:10
--- NOTE | 2024-12-13 10:41 | ECG_ITS ---
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 Measurements Intervals [place] Rate: 77 P: 51 DE: 178 QRS: -14 QRSD: 84 T: 47 QT: 388 QTc: 420 Interpretive Statements 1100 Sinus rhythm 3513 Cannot rule out lateral myocardial infarction, probably old 9150 abnormal ECG No prior ECG available for comparison Electronically Signed On 12-13-2024 20:25:31 EDT by GURPREET PADGETT M.D.
--- NOTE | 2024-12-13 10:41 | ED_ITS ---
HPI HPI - General Adult General Chief complaint: Back Pain/Injury Stated complaint: POSSIBLE KIDNEY STONES Time Seen by Provider: 12/13/24 10:34 History of Present Illness HPI narrative: 64-year-old female presents for pain. She came in thinking she is passing a kidney stone. She describes the pain as being in the left upper chest and into her shoulder and her left upper back. She does not have any flank or lower back pain. No dysuria or hematuria. No trauma fever or unusual activity. She states she has been sweaty and her symptoms began yesterday. Related Data Home Medications ?Medication ?Instructions ?Recorded ?Confirmed alendronate 70 mg tablet 70 mg PO .weekly 02/02/24 02/19/24 aspirin 81 mg capsule 81 mg PO DAILY 02/02/24 02/19/24 budesonide-formoterol HFA 160 2 puff inhalation Q12H 02/02/24 02/19/24 mcg-4.5 mcg/actuation aerosol inhaler (Symbicort) cyproheptadine 4 mg tablet 4 mg PO .hs 02/02/24 02/19/24 losartan 50 mg tablet 50 mg PO DAILY 02/02/24 02/19/24 methimazole 10 mg tablet 10 mg PO .mwf 02/02/24 02/19/24 montelukast 10 mg tablet 10 mg PO QPM 02/02/24 02/19/24 Previous Rx's ?Medication ?Instructions ?Recorded levofloxacin 500 mg tablet 500 mg PO DAILY 5 days #5 tabs 02/03/24 solifenacin 10 mg tablet (Vesicare) 10 mg PO DAILY #14 tabs 02/03/24 acetaminophen 300 mg-codeine 30 mg 1 tab PO Q6H PRN pain 5 days #20 12/13/24 tablet tabs methocarbamol 500 mg tablet 500 mg PO Q8H PRN pain #20 tabs 12/13/24 Allergies Allergy/AdvReac Type Severity Reaction Status Date / Time No Known Drug Allergies Allergy Verified 02/02/24 15:59 Opioid HPI Opioid Management Most Recent Opioid Data: Last Pain Scale 7 12/13/24 11:38 12/13/24 Last MAR Pain Assessment 12/13/24 11:38 Last ORT Total Score 0 02/02/24 21:48 02/02/24 Last ORT Risk Category Low Risk 02/02/24 21:48 02/02/24 Review of Systems ROS Narrative A ten point review of systems is negative except as noted above. PFSH PFSH Medical History Hyperthyroidism ?E05.90 - Thyrotoxicosis, unspecified without thyrotoxic crisis or storm (ICD-10) Gall stones ?K80.20 - Calculus of gallbladder without cholecystitis without obstruction (ICD-10) Asthma ?J45.909 - Unspecified asthma, uncomplicated (ICD-10) Endometriosis determined by laparoscopy ?N80.9 - Endometriosis, unspecified (ICD-10) High blood pressure ?I10 - Essential (primary) hypertension (ICD-10) Pulmonary embolus ?I26.99 - Other pulmonary embolism without acute cor pulmonale (ICD-10) Surgical History H/O laparoscopy ?Z98.890 - Other specified postprocedural states (ICD-10) Hx of cholecystectomy ?Z90.49 - Acquired absence of other specified parts of digestive tract (ICD- 10) Hx of appendectomy ?Z90.49 - Acquired absence of other specified parts of digestive tract (ICD- 10) H/O: hysterectomy ?Z90.710 - Acquired absence of both cervix and uterus (ICD-10) H/O lateral meniscus repair of left knee ?Z98.890 - Other specified postprocedural states (ICD-10) Family History Father Family history of cancer Family history of diabetes mellitus Mother Family history of diabetes mellitus Family history of stroke Social History Within the past year, how often did you have a drink containing alcohol: never Score interpretation: A score less than 3 is consistent with normal alcohol consumption. 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 Highest level of school completed/degree received: some college, no degree Are you now , , , , never or living with a partner: In a typical week, how many times do you talk on the telephone with family, friends, or neighbors: 3 or more times per week How often do you get together with friends or relatives: once per week How often do you attend episcopalian or mormon services: 4 or more times per year Little interest or pleasure in doing things: not at all Feeling down, depressed, or hopeless: not at all Feel stressed/tense/nervous/anxious/difficulty sleeping: only a little Do you think of yourself as: straight/heterosexual Gender Identity: female Exam Narrative Exam Narrative: Nurses note and vital signs reviewed and patient is not hypoxic. General: The patient appears uncomfortable. Skin: Warm, dry, no pallor noted. There is no rash noted. Head: Normocephalic, atraumatic Eye: Normal conjunctiva, no drainage Ears, Nose, Mouth, and Throat: oral mucosa is moist. Nares patent. Cardiovascular: Regular Rate and Rhythm, mildly tachycardic Respiratory: Patient is in no distress, no accessory muscle use, lungs are clear to auscultation, no wheezing, rales or rhonchi. Chest wall not tender Back: non-tender, no CVA tenderness bilaterally to percussion. GI: Soft and nontender Musculoskeletal: The patient has no evidence of calf tenderness, no pitting edema, symmetrical pulses noted bilaterally Neurological: A&O, normal speech Psychiatric: Cooperative Constitutional Vital Signs, click to edit/add: Last Vital Signs Temp 98.2 F 12/13/24 10:34 Pulse 87 12/13/24 10:34 Resp 18 12/13/24 10:34 BP 150/90 H 12/13/24 10:34 Pulse Ox 96 12/13/24 10:34 O2 Del Method Room Air 12/13/24 10:34 Course Vital Signs Vital signs: Vital Signs Temperature 98.2 F 12/13/24 10:34 Pulse Rate 87 12/13/24 10:34 Respiratory Rate 18 12/13/24 10:34 Blood Pressure 150/90 H 12/13/24 10:34 Pulse Oximetry 96 12/13/24 10:34 Oxygen Delivery Method Room Air 12/13/24 10:34 Temperature 98.2 F 12/13/24 10:34 Pulse Rate 87 12/13/24 10:34 Respiratory Rate 18 12/13/24 10:34 Blood Pressure 150/90 H 12/13/24 10:34 Pulse Oximetry 96 12/13/24 10:34 Oxygen Delivery Method Room Air 12/13/24 10:34 Medical Decision Making MDM Narrative Medical decision making narrative: Extensive workup here is negative including 2 sets of troponin. CTA is also negative. I suspect that this is muscular in nature. She will be treated with Tylenol 3 and Robaxin. Treatment diagnosis and follow-up were discussed with the patient and her . Differential Diagnosis Differential Diagnosis: Pulmonary embolism, pneumothorax, acute myocardial infarction, unstable ang Lab Data Lab results reviewed: Yes I reviewed the patient's lab results Labs: Lab Results 12/13/24 12/13/24 12/13/24 Range/Units 10:51 11:03 12:23 WBC 8.7 (4.0-11.0) 10^3/uL RBC 4.62 (4.20-5.40) 10^6/uL Hgb 13.7 (12.0-16.0) g/dL Hct 41.2 (36.0-48.0) % MCV 89.2 (81.0-99.0) fL MCH 29.7 (26.7-34.0) pg MCHC 33.3 (29.9-35.2) g/dL RDW 14.0 (11.0-15.0) % Plt Count 326 (150-450) 10^3/uL MPV 9.7 (9.5-13.5) fL Neut % (Auto) 68.1 (43.0-75.0) % Lymph % (Auto) 19.8 L (20.5-60.0) % [place] % (Auto) 8.7 (1.7-12.0) % Eos % (Auto) 2.6 (0.9-7.0) % Baso % (Auto) 0.6 (0.2-2.0) % Neut # (Auto) 5.9 (1.4-6.5) 10^3/uL Lymph # (Auto) 1.7 (1.2-3.8) 10^3/uL [place] # (Auto) 0.8 (0.3-0.8) 10^3/uL Eos # (Auto) 0.2 (0.0-0.7) 10^3/uL Baso # (Auto) 0.1 (0.0-0.1) 10^3/uL Abs Immat Gran (auto) 0.02 (0.00-0.03) 10^3/uL Imm/Tot Granulo (auto) 0.2 (0.0-0.5) % D-Dimer 0.27 (<=0.59) mg/L FEU Sodium 139 (136-145) mmol/L Potassium 3.8 (3.5-5.1) mmol/L Chloride 103 (98-107) mmol/L Carbon Dioxide 26.9 (21.0-32.0) mmol/L Anion Gap 12.9 BUN 16.0 (7.0-18.0) mg/dL Creatinine 0.75 (0.55-1.02) mg/dL Est GFR ( Amer) >60 (>=60 mL/min/1.73m^2) Est GFR (Non-Af Amer) >60 (>=60 mL/min/1.73m^2) BUN/Creatinine Ratio 21.3 Glucose 113 H (74-106) mg/dL Calcium 8.7 (8.5-10.1) mg/dL Troponin I High Sens 12.9 14.5 (4.0-51.3) pg/mL Urine Color Yellow (YELLOW) Urine Clarity Clear (CLEAR) Urine pH 6.0 (5.0-9.0) Ur Specific [place] >=1.030 A (1.005-1.025) Urine Protein 30 A (NEG/TRACE) mg/dL Urine Glucose (UA) Negative (NEGATIVE) mg/dL Urine Ketones Trace A (NEGATIVE) mg/dL Urine Occult Blood Negative (NEGATIVE) Urine Nitrite Negative (NEGATIVE) Urine Bilirubin Small A (NEGATIVE) Urine Urobilinogen 1.0 (0.2-1.0) EU/dL Ur Leukocyte Esterase Trace A (NEGATIVE) Urine RBC 0-2 (0-2) #/HPF Urine WBC 2-5 A (NONE SEEN) #/HPF Ur Squamous Epith Cells Moderate A (NONE/RARE) #/LPF Urine Crystals None seen (None Seen) #/HPF Urine Bacteria Small A (NONE SEEN) #/HPF Urine Casts None seen (NONE SEEN) #/LPF Urine Mucus None seen (NONE SEEN) Ur Culture Indicated? Yes-[facility] [place] Imaging Data CT scan - chest: Radiologist's impression: ITS Impressions Chest X-Ray 12/13/24 10:41 IMPRESSION: BORDERLINE CARDIOMEGALY. MINIMAL NONSPECIFIC INTERSTITIAL CHANGE. NO OTHER ACUTE FINDINGS Impression dictated by: Sallie Stovall M.D.12/13/2024 11:10 AM Dictation Location: [place] [address] Electronically authenticated by: [id number] Y Date: 12/13/2024 11:10 CT chest: No acute process ECG Data Attestation: I personally reviewed and interpreted this ECG as follows: (EKG on my interpretation shows normal sinus rhythm with rate of 77 and no acute change. Some artifact present) Discharge Plan Discharge Chief Complaint: Back Pain/Injury Clinical Impression: Chest pain Patient Disposition: Home, Self-Care Time of Disposition Decision: 14:13 Condition: Good Mode of Transportation: Private Vehicle Prescriptions / Home Meds: New acetaminophen-codeine 300-30 mg tablet 1 tab PO Q6H PRN (Reason: pain) 5 Days Qty: 20 0RF methocarbamol 500 mg tablet 500 mg PO Q8H PRN (Reason: pain) Qty: 20 0RF No Action alendronate 70 mg tablet 70 mg PO .weekly Patient Comments: takes it on friday budesonide-formoterol [Symbicort] 160-4.5 mcg/actuation HFA aerosol inhaler 2 puff INHALATION Q12H cyproheptadine 4 mg tablet 4 mg PO .hs losartan 50 mg tablet 50 mg PO DAILY methimazole 10 mg tablet 10 mg PO .mwf Rx Instructions: takes 3 times a week on friday and friday montelukast 10 mg tablet 10 mg PO QPM aspirin 81 mg capsule 81 mg PO DAILY levofloxacin 500 mg tablet 500 mg PO DAILY 5 Days Qty: 5 0RF solifenacin [Vesicare] 10 mg tablet 10 mg PO DAILY Qty: 14 0RF Print Language: [place] Instructions: Chest Pain (ED) Referrals: RAJESH BURCIAGA [Primary Care Provider] - 1 week
[2024-12-13 10:57] LABS: Basophils Absolute Auto 0.1 10^3/uL (0.0-0.1); Basophils Percent Auto 0.6 % (0.2-2.0); Eosinophils Absolute Auto 0.2 10^3/uL (0.0-0.7); Eosinophils Percent Auto 2.6 % (0.9-7.0); Hematocrit 41.2 % (36.0-48.0); Hemoglobin 13.7 g/dL (12.0-16.0); Immature Granulocytes Abs Auto 0.02 10^3/uL (0.00-0.03); Immature Granulocytes Pct Auto 0.2 % (0.0-0.5); Lymphocytes Absolute Auto 1.7 10^3/uL (1.2-3.8); Lymphocytes Percent Auto 19.8 % (20.5-60.0); Mean Corpuscular HGB Conc 33.3 g/dL (29.9-35.2); Mean Corpuscular Hemoglobin 29.7 pg (26.7-34.0); Mean Corpuscular Volume 89.2 fL (81.0-99.0); Mean Platelet Volume 9.7 fL (9.5-13.5); Monocytes Absolute Auto 0.8 10^3/uL (0.3-0.8); Monocytes Percent Auto 8.7 % (1.7-12.0); Neutrophils Absolute Auto 5.9 10^3/uL (1.4-6.5); Neutrophils Percent Auto 68.1 % (43.0-75.0); Platelet Count 326 10^3/uL (150-450); Red Blood Count 4.62 10^6/uL (4.20-5.40); White Blood Count 8.7 10^3/uL (4.0-11.0)
[2024-12-13 10:58] VITALS: PULSE 81
--- NOTE | 2024-12-13 10:59 | PC.NURSE ---
pt c/o left shoulder pain that radiates to back started yesterday. c/o nausea. pt concerned for kidney stones, hx of kidney stones
[2024-12-13 11:11] LABS: Bilirubin Urine SMALL (NEGATIVE); Blood Urine NEGATIVE (NEGATIVE); Clarity Urine CLEAR (CLEAR); Color Urine YELLOW (YELLOW); Glucose Urine UA NEGATIVE (NEGATIVE); Ketones Urine TRACE mg/dL (NEGATIVE); Leukocyte Esterase Urine TRACE (NEGATIVE); Nitrite Urine NEGATIVE (NEGATIVE); Protein Urine 30 mg/dL (NEG/TRACE); Specific Gravity Urine >=1.030 (1.005-1.025)
[2024-12-13 11:16] LABS: D Dimer 0.27 mg/L FEU (<=0.59)
[2024-12-13 11:21] LABS: Bacteria Urine SMALL #/HPF (NONE SEEN); Cast Seen? NONE SEEN #/LPF (NONE SEEN); Crystals Seen? None Seen #/HPF (None Seen); Mucus Urine NONE SEEN (NONE SEEN); RBC Urine 0-2 #/HPF (0-2); Squamous Epithelial Cell Urine MODERATE #/LPF (NONE/RARE); Urine Culture Indicated YES-FRMC
[2024-12-13 11:22] LABS: Anion Gap 12.9; BUN Creatinine Ratio 21.3; Calcium 8.7 mg/dL (8.5-10.1); Carbon Dioxide 26.9 mmol/L (21.0-32.0); Chloride 103 mmol/L (98-107); Estimated GFR (African America >60 (>=60 mL/min/1.73m^2); Estimated GFR (Non-African Ame >60 (>=60 mL/min/1.73m^2); Glucose 113 mg/dL (74-106); Potassium 3.8 mmol/L (3.5-5.1); Sodium 139 mmol/L (136-145); Troponin I High Sensitivity 12.9 pg/mL (4.0-51.3)
[2024-12-13] MEDS: KETOROLAC TROMETHAMINE 30 MG/ML VIAL IVP (11:38)
[2024-12-13 12:53] LABS: Troponin I High Sensitivity 14.5 pg/mL (4.0-51.3)
[2024-12-13 14:35] VITALS: BP 150/78; PULSE 78; O2SAT 98
== END 2024-12-13 14:37 | disposition home or self-care (01) ==
PROVIDERS: Emergency Provider Emergency Medicine; PCP Family Medicine
DX: R07.9 Chest pain, unspecified (principal); Z90.49 Acquired absence of other specified parts of digestive tract; Z90.710 Acquired absence of both cervix and uterus; Z87.891 Personal history of nicotine dependence; R82.998 Other abnormal findings in urine
CPT/HCPCS: 36415; 71045; 71275; 80048; 81001; 84484; 85025; 85378; 87086; 93005; 96374; 99285; J1885; Q9967

== ENCOUNTER 2025-02-21 15:15 | Outpatient (OUT) | payer OTHER, SELFPAY ==
[2025-02-21 16:13] LABS: Free T4 1.35 ng/dL (0.76-1.46)
[2025-02-21 16:18] LABS: Free T3 2.85 pg/mL (2.18-3.98)
--- OUTSIDE RECORDS SUMMARY | 2025-02-21 18:07 | XMS_ITS | CCD ---
Author Organization [facility] Care Team Providers Care Measurement Supervisor Name Role Phone GERA BURCIAGA Primary Care Physician [phone] Kristina Donald Unavailable Maria Isabel Hadley Unavailable Caitlyn Long Unavailable DO Gera Burciaga Primary Care Provider NABEEL Peters Attending Provider DO Gera Burciaga Primary Care Provider NABEEL Peters Attending Provider MD Caitlyn Long Attending Provider [phone] CAYETANO, DR ARVIN Peterson Consulting Unavailable DENISSE OAKLEY Admitting Unavailable DENISSE OAKLEY Attending Unavailable DENISSE OAKLEY Consulting Unavailable JESÚS ., DR BOOKER Attending Unavailable HAY ., DR BOOKER Admitting Unavailable CAYETANO, DR ARVIN Peterson Consulting Unavailable JESÚS ., DR BOOKER Consulting Unavailable PATRICA, DR GERA Thakkar Primary Care Unavailable FRAN, BARBARA Consulting Unavailable BARBARA PETERS Admitting Unavailable FRAN, BARBARA Attending Unavailable YI ., DR ANDERSON Admitting Unavailable YI ., DR ANDERSON Attending Unavailable YI ., DR ANDERSON Consulting Unavailable PATRICA, DR GERA Thakkar Primary Care Unavailable PATRICA, DR GERA Thakkar Primary Care Unavailable YI ., DR ANDERSON Attending Unavailable YI ., DR ANDERSON Consulting Unavailable YI ., DR ANDERSON Admitting Unavailable WEBB[place], DR ADRY Norman Consulting Unavailable BRANDONPANCHITO PATEL Attending Unavailable PANCHITO TAYLOR Admitting Unavailable TYLER LINO Attending Unavailable TYLER LINO Attending Unavailable TYLER LINO Attending Unavailable ANNIE NICOLE Attending Unavailable TYLER LINO Referring Unavailable ANNIE NICOLE Attending Unavailable FLORINDA PATRICIA Attending Unavailable Nohemi Garcia Attending Unavailable Justin YI Referring Unavailable Justin YI Attending Unavailable FRAN, BARBARA L Referring Unavailable FRAN, BARBARA L Primary Care Unavailable Unavailable Primary Care Provider UnavailTONI Reyes Admitting Unavailable TONI BANSAL Attending Unavailable Fran [facility], Barbara L Primary Care Provider Thom España DO Attending Provider UnavailThom Brown Attending Unavailable Thom España Admitting Unavailable Unavailable Primary Care Provider UnavailTONI Reyes Attending Unavailable TONI BANSAL Attending Unavailable TONI BANASL Attending Unavailable TONI BANSAL Attending Unavailable TONI BANSAL Attending Unavailable Fran [facility], Barbara L Primary Care Provider Fran [facility], [facility] L Primary Care Provider FRAN, BARBARA L Attending Unavailable FRAN, BARBARA L Referring Unavailable FRAN, BARBARA L Primary Care Unavailable FRAN, BARBARA L Attending Unavailable FRAN, BARBARA L Referring Unavailable FRAN, BARBARA L Primary Care Unavailable FRAN, BARBARA L Attending Unavailable FRAN, BARBARA L Referring Unavailable FRAN, BARBARA L Primary Care Unavailable FRAN, BARBARA L Attending Unavailable FRAN, BARBARA L Referring Unavailable FRAN, BARBARA L Primary Care Unavailable FRAN, BARBARA L Attending Unavailable FRAN, BARBARA L Referring Unavailable FRAN, BARBARA L Primary Care Unavailable JOANNA PALACIOS Attending Unavailable FRAN, BARBARA L Referring Unavailable FRAN, BARBARA L Primary Care Unavailable FRAN, BARBARA L Attending Unavailable FRAN, BARBARA L Referring Unavailable FRAN, BARBARA L Primary Care Unavailable FRAN, BARBARA L Referring Unavailable FRAN, BARBARA L Primary Care Unavailable FRAN, BARBARA L Referring Unavailable FRAN, BARBARA L Primary Care Unavailable MRAIUSZ SIMON L Admitting Unavailable MARIUSZ SIMON Attending Unavailable MARIUSZ SIMON L Referring Unavailable FRAN, BARBARA L Primary Care Unavailable FRAN, BARBARA L Referring Unavailable FRAN, BARBARA L Primary Care Unavailable FRAN, BARBARA L Referring Unavailable FRAN, BARBARA L Primary Care Unavailable FRAN BARBARA L Referring Unavailable FRAN BARBARA L Primary Care Unavailable RADHA KAHN Attending Unavailable FRAN BARBARA Jackson Referring Unavailable FRAN, BARBARA L Primary Care Unavailable FRAN, BARBARA L Primary Care Unavailable ROSALIA STEIN Admitting Unavailable ROSALIA STEIN Attending Unavailable BLANCA PATRICIA Attending Unavailab le Allergies Allergy Classification Reported Allergen(s) Allergy Type Date of Onset Reaction(s) Facility (2 sources) No Known Medication Allergies; Translations: [No Known Medication Allergies] Propensity to adverse reactions (disorder) [facility] Repository Medications Current Medications Medication Drug Class(es) Dates Sig (Normalized) Sig (Original) acetaminophen 325 mg oral tablet (1 source) Start: 06-17-2024 take 1 tablet by mouth every four hours as needed 650 mg, oral, Every 4 hours PRN, pain mild (1-3), first line, Starting on [place] 06/17/24 at 1224, Recovery (only), When able to take oral medications., If ordered PRN for pain, nurse is permitted to administer this medication for higher pain scores based on patient preference? Yes acetaminophen 325 mg / butalbital 50 mg / caffeine 40 mg oral tablet (4 sources) Barbiturate, Central Nervous System Stimulant, Methylxanthine Start: 01-24-2022 take 1 tablet by mouth every four hours for headache APAP/butalbital/ caffeine 325 mg-50 mg-40 mg Tab 1 tab(s), Oral, q4hr for headache, 60 tab(s), Refill(s) 0 Start Date: 01/24/22 Status: Ordered acetaminophen 300 mg / codeine phosphate 30 mg oral tablet (2 sources) Opioid Agonist Start: 12-13-2024 take 1 tablet by mouth every six hours as needed acetaminophen-co deine (TYLENOL #3) 300-30 mg per tablet Take 1 tablet by mouth every 6 (six) hours as needed. 12/13/2024 Active acetaminophen 325 mg / oxyCODONE hydrochloride 5 mg oral tablet (2 sources) Opioid Agonist Start: 03-31-2022 Percocet 5 mg-325 mg oral tablet 1 tab(s), Oral, q6hr as needed for pain, 10 tab(s), Refill(s) 0, [facility], 165, cm, 03/30/22 21:43:00 EDT, Height/Length Dosing, 79.5, kg, 03/30/22 21:43:00 EDT, Weight Dosing Start Date: 03/31/22 Status: Ordered albuterol 0.83 mg/ml inhalation solution (19 sources) beta2-Adrenergic Agonist Start: 06-17-2024 2.5 mg, nebulization, Once as needed, wheezing, Starting on [facility] 06/17/24 at 1224, For 1 dose, Recovery (only) Start: 08-22-2023 End: 01-28-2024 take 1 dose by inhalation three times daily as needed albuterol (PROVENTIL,VENTOLIN) 2.5 mg /3 mL (0.083 %) nebulizer solution Indications: Unspecified asthma, uncomplicated INHALE 1 (ONE) vial by NEBULIZER THREE TIMES DAILY NEEDED 90 mL 3 08/22/2023 01/28/2024 Discontinued (Therapy completed) Start: 11-14-2020 take 2.5 mg by inhal [...] Ordered alendronic acid 70 mg oral tablet (20 sources) Bisphosphonate Start: 06-02-2023 End: 05-18-2024 take 1 tablet by mouth in the morning alendronate (FOSAMAX) 70 mg tablet Indications: Osteoporosis without current pathological fracture, unspecified osteoporosis type TAKE 1 TABLET BY MOUTH EVERY 7 (SEVEN) days in IN THE MORNING WITH water ON AN EMPTY STOMACH and nothing else BY MOUTH and remain upright for 30 mins 4 tablet 11 05/18/2024 Active Start: 06-02-2023 take 1 tablet by ede th every week alendronate (Fosamax) 70 mg tablet Take 1 tablet (70 mg) by mouth once a week. 06/02/2023 Active Amoxicillin (1 source) Penicillin-class Antibacterial Amoxicillin Active amoxicillin 875 mg / clavulanate 125 mg oral tablet (2 sources) Penicillin-class Antibacterial Start: 01-12-20 End: 02-11-20 take 1 tablet by mouth once in the morning amoxicillin-pot clavulanate (AUGMENTIN) 875-125 mg per tablet Take 1 tablet by mouth in the morning and 1 tablet before bedtime. 01/12/2024 02/11/2024 Active aprepitant 40 mg oral capsule (1 source) Substance P/Neurokinin-1 Receptor Antagonist Start: 06-17-20 take 40 mg by mouth once daily 40 mg, oral, Daily, First dose on [place] 06/17/24 at 1230, Preprocedure aspirin 81 mg delayed release oral tablet (20 sources) Platelet Aggregation Inhibitor, Nonsteroidal Anti-inflammatory Drug Start: 10-08-19 take 1 tablet by mouth once daily aspirin 81 mg Oral EC Tab 81 mg = 1 tab(s), Oral, Daily, Refills(s) 0, Blood Thinner Start Date: 10/08/19 Status: Ordered Start: 10-08-2019 take 1 tablet by ede once daily aspirin 81 mg Oral EC Tab 81 mg = 1 tab(s), Oral, Daily, Refills(s) 0, Blood Thinner Start Date: 10/08/19 Status: Ordered Aspirin Active azelastine hydrochloride 0.137 mg/actuat metered dose nasal spray (9 sources) Histamine-1 Receptor Antagonist Start: 09-18-2023 End: 01-28-2024 take 2 spray(s) nasal route twice daily [...] day(s), # 6 tab(s), Refills(s) 0, Pharmacy: [facility], 165, cm, 11/25/22 9:56:00 EDT, Height/Length Dosing, 84.2, kg, 11/25/22 9:56:00 EDT, Weight Dosing Start Date: 11/25/22 Stop Date: 11/30/22 Status: Ordered baclofen 10 mg oral tablet (2 sources) gamma-Aminobutyric Acid-ergic Agonist Start: 12-30-2024 take 1 tablet by mouth once daily as needed for muscle spasms baclofen (LIORESAL) 10 mg tablet Take 1 tablet (10 mg total) by mouth nightly as needed for muscle spasms. 30 tablet 1 12/30/2024 Active benzonatate 200 mg oral capsule (1 source) Non-narcotic Antitussive Start: 11-25-2022 End: 12-02-2022 take 1 capsule by mouth three times daily benzonatate 200 mg oral capsule 200 mg = 1 cap(s), Oral, TID, X 7 day(s), # 21 cap(s), Refills(s) 0, Pharmacy: [facility], 165, cm, 11/25/22 9:56:00 EDT, Height/Length Dosing, 84.2, kg, 11/25/22 9:56:00 EDT, Weight Dosing Start Date: 11/25/22 Stop Date: 12/02/22 Status: Ordered 60 actuat budesonide 0.16 mg/actuat / formoterol fumarate 0.0045 mg/actuat metered dose inhaler (20 sources) Corticosteroid, beta2-Adrenergic Agonist Start: 04-21-2023 take 2 puff(s) by mouth twice daily SYMBICORT 160-4.5 mcg/actuation inhaler Indications: Unspecified asthma, uncomplicated INHALE 2 PUFFS BY MOUTH TWICE DAILY 10.2 g 5 04/21/2023 Active Start: 04-21-2023 take 2 puff(s) by in halation twice daily budesonide-formoteroL (Symbicort) 160-4.5 mcg/actuation inhaler Inhale 2 puffs twice a day. 04/21/2023 Active Symbicort Active calcium chloride 0.0014 meq/ml / potassium chloride 0.004 meq/ml / sodium chloride 0.103 meq/ml / sodium lactate 0.028 meq/ml injectable solution (2 sources) Start: 06-17-2024 take 100 mL intravenously every hour 100 mL/hr, intravenous, Continuous, Starting on Fri06/17/24 at 1245, Recovery (only) cefdinir 300 mg oral capsule (1 source) Cephalosporin Antibacterial Start: 11-25-2022 End: 12-05-2022 take 1 capsule by mouth every twelve hours cefdinir 300 mg Cap 300 mg = 1 cap(s), Oral, q12hr, X 10 day(s), # 20 cap(s), Refills(s) 0, Pharmacy: [facility], 165, cm, 11/25/22 9:56:00 EDT, Height/Length Dosing, 84.2, kg, 11/25/22 9:56:00 EDT, Weight Dosing Start Date: 11/25/22 Stop Date: 12/05/22 Status: Ordered cyproheptadine hydrochloride 4 mg oral tablet (20 sources) Start: 10-14-2019 End: 12-07-2024 take 1 tablet by mouth once daily as needed cyproheptadine (PERIACTIN) 4 mg tablet Indications: Migraine without aura, not intractable, without status migrainosus TAKE 1 TABLET BY MOUTH NIGHTLY NEEDED for allergies 90 tablet 1 12/07/2024 Active Cyproheptadine H Cl Active diphenhydrAMINE (1 source) Histamine-1 Receptor Antagonist Start: 06-17-2024 12.5 mg, intravenous, Once as needed, itching, allergic reaction, Starting on [place] 06/17/24 at 1224, For 1 dose, Recovery (only) docusate sodium 100 mg oral capsule (20 sources) Start: 10-08-2019 take 1 capsule by mouth once daily Dulcolax Stool Softener 100 mg oral capsule 100 mg = 1 cap(s), Oral, Daily, Refills(s) 0 Start Date: 10/08/19 Status: Ordered Start: 10-08-2019 take 1 capsule by [facility] twice daily as needed for constipation Dulcolax [...] bedtime), # 90 tab(s), Refills(s) 1, Pharmacy: [facility], 165, cm, 12/06/20 10:28:00 EDT, Height/Length Dosing, 84.4, kg, 12/06/20 10:28:00 EDT, Weight Dosing Start Date: 12/06/20 Status: Ordered 1 ml fentaNYL 0.05 mg/ml injection (2 sources) Opioid Agonist Start: 06-17-2024 50 mcg, intravenous, Every 5 min PRN, pain severe (7-10), first line, Starting on [place] 06/17/24 at 1224, Recovery (only), Max total of 200 micrograms regardless of dose., If ordered PRN for pain, nurse is permitted to administer this medication for higher pain scores based on patient preference? Yes Start: 06-17-2024 25 mcg, intrav enous, Every 5 min PRN, pain moderate (4-6), first line, Starting on [place] 06/17/24 at 1224, Recovery (only), Max total of 200 micrograms regardless of dose., If ordered PRN for pain, nurse is permitted to administer this medication for higher pain scores based on patient preference? Yes fluticasone propionate 0.093 mg/actuat metered dose nasal spray (20 sources) Corticosteroid Start: 10-20-2023 End: 10-19-2024 take 1 spray(s) nasal route in the morning XHANCE 93 mcg/actuation aerosol breath activated Administer 1 spray into each nostril in the morning and 1 spray before bedtime. 10/20/2023 03/05/2024 Discontinued (Therapy completed) take 2 spray(s) nasa l route once daily fluticasone (Flonase Sensimist) 27.5 mcg/actuation nasal spray Administer 2 sprays into each nostril once daily. Active End: 10-19-2024 fluticasone (FLONASE SENSIMI ST) 27.5 mcg/actuation nasal spray 2 sprays in the morning. 10/19/2024 Discontinued losartan potassium 50 mg oral tablet (20 sources) Angiotensin 2 Receptor Riley Start: 02-08-2025 take 1 tablet by mouth once daily losartan (COZAAR) 50 mg tablet Indications: Essential (primary) hypertension TAKE 1 TABLET BY MOUTH DAILY 90 tablet 1 02/08/2025 Active Start: 08-05-2024 End: 02-08-2025 take 1 tablet by mouth once daily losartan (COZAAR) 50 mg tablet Indications: Essential (primary) hypertension TAKE 1 TABLET BY MOUTH DAILY 90 tablet 1 08/05/2024 02/08/2025 Discontinued Start: 05-06-2024 End: 06-24-2024 take 1 tablet by mouth in the morning losartan (COZAAR) 25 mg tablet Take 1 tablet (25 mg total) by mouth in the morning. 90 tablet 1 05/06/2024 06/24/2024 Discontinued (Therapy completed) Start: 08-12-2023 End: 05-06-2024 take 1 tablet by mouth once daily losartan (COZAAR) 50 mg tablet Indications: Essential (primary) hypertension TAKE 1 TABLET BY MOUTH DAILY 90 tablet 1 08/05/2024 Active Start: 11-19-2022 losartan Refil ls(s) 0 Start Date: 11/19/22 Status: Ordered take 1 tablet by ede th every twenty-four hours Losartan Potassium 25 MG 1 tablet Orally Once a day Active Losartan Potassi um Active magnesium sulfate 0.0277 meq/ml / potassium sulfate 0.0374 meq/ml / sodium sulfate 0.257 meq/ml oral solution (1 source) Start: 08-01-2024 End: 08-02-2024 take 177 mL by mouth in the morning sodium,potassium,mag sulfates (SUPREP) 17.5-3.13-1.6 gram recon soln Indications: History of colon polyps Take 177 mL by mouth in the morning and 177 mL before bedtime. Do all this for 1 day. Take according colonoscopy instructions. 354 mL 08/01/2024 08/02/2024 Active meclizine hydrochloride 25 mg oral tablet [...] 1 tablet by ede th three times weekly methIMAzole (TAPAZOLE) 10 mg tablet Take 1 tablet (10 mg total) by mouth 3 (three) times a week. Active take 1 tablet by ede th three times daily methIMAzole (TAPAZOLE) 10 mg tablet Take 1 tablet (10 mg total) by mouth 3 (three) times a day. 0 Active methIMAzole Acti ve methocarbamol 500 mg oral tablet (1 source) Muscle Relaxant Start: 12-13-2024 End: 12-30-2024 take 1 tablet by mouth every eight hours as needed methocarbamoL (ROBAXIN) 500 mg tablet Take 1 tablet (500 mg total) by mouth every 8 (eight) hours as needed. 12/13/2024 12/30/2024 Discontinued (Therapy completed) methylPREDNISolone 4 mg oral tablet (1 source) Corticosteroid Start: 07-12-2021 methylPREDNISolone 4 MG as directed Orally Once a day for 6 days 28 Oct, 2021 Active mometasone furoate, bulk, 100 % powder (2 sources) Start: 07-06-2024 mometasone furoate, bulk, 100 % powder Indications: Nasal polyp Compound 2 mg capsule to be added to sinus rinse twice daily. 90 g 3 07/06/2024 Active montelukast 10 mg oral tablet (20 sources) Leukotriene Receptor Antagonist Start: 11-15-2020 End: 09-13-2024 take 1 tablet by mouth in the evening montelukast (SINGULAIR) 10 mg tablet Indications: Allergic rhinitis, unspecified TAKE 1 TABLET BY MOUTH IN THE EVENING 90 tablet 2 09/13/2024 Active Montelukast Sodi um Active Multi Vitamins oral tablet (17 sources) Start: 11-14-2020 take 1 tablet by mouth once daily Multi Vitamins oral tablet 1 tab(s), Oral, Daily, Refill(s) 0, Prophylaxis Start Date: 11/14/20 Status: Ordered Multivitamin preparation (8 sources) Multivitamin Active naproxen 500 mg oral tablet (4 sources) [...] Orally bid for 5 day(s) January, Active Sanford 3 (5 sources) Sanford 3 Active Sanford-3 (2 sources) Start: 10-08-2019 Sanford-3 Oral, Daily, Refill(s) 0, Prophylaxis Start Date: 10/08/19 Status: Ordered omeprazole 20 mg delayed release oral capsule (3 sources) Proton Pump Inhibitor Start: 01-28-2024 End: 03-05-2024 take 1 capsule by mouth in the morning omeprazole (PriLOSEC) 20 mg capsule Take 1 capsule (20 mg total) by mouth in the morning. 14 capsule 1 01/28/2024 03/05/2024 Discontinued (Therapy completed) omeprazole 40 mg Cap-DR (4 sources) Start: 01-08-2021 take 1 capsule by mouth twice daily omeprazole 40 mg Cap-DR 40 mg = 1 cap(s), Oral, BID, # 60 cap(s), Refills(s) 2, Pharmacy: [facility], 165, cm, 01/08/21 7:20:00 EDT, Height/Length Dosing, 84.4, kg, 01/08/21 7:20:00 EDT, Weight Dosing Start Date: 01/08/21 Status: Ordered Start: 12-06-2020 take 1 capsule by [facility] once daily omeprazole 40 mg Cap-DR 40 mg = 1 cap(s), Oral, Daily, # 30 cap(s), Refills(s) 2, Pharmacy: [facility], 165, cm, 12/06/20 10:28:00 EDT, Height/Length Dosing, 84.4, kg, 12/06/20 10:28:00 EDT, Weight Dosing Start Date: 12/06/20 Status: Ordered 2 ml ondansetron 2 mg/ml injection (13 sources) Serotonin-3 Receptor Antagonist Start: 06-17-2024 4 mg, intravenous, O nce as needed, nausea/vomiting, first line, Starting on [place] 06/17/24 at 1224, For 1 dose, Recovery (only), When administering via IV Push, administer over 3-5 minutes. Start: 06-13-2023 End: 01-28-2024 take 1 tablet by mouth every eight hours as needed for nausea and vomiting ondansetron ODT (ZOFRAN ODT) 4 mg disintegrating tablet Dissolve 1 tablet (4 mg total) on tongue every 8 (eight) hours as needed for nausea or vomiting. 20 tablet 06/13/2023 01/28/2024 Discontinued (Therapy completed) Start: 01-24-2022 take 1 tablet by ede three times daily as needed for nausea [...] day(s), # 60 tab(s), Refills(s) 1, Pharmacy: [facility], 165, cm, 01/24/22 6:15:00 EDT, Height/Length Dosing, 87.5, kg, 01/24/22 6:15:00 EDT, Weight Dosing Start Date: 01/24/22 Stop Date: 03/25/22 Status: Ordered oxyCODONE hydrochloride 10 mg oral tablet (2 sources) Opioid Agonist Start: 06-17-2024 take 1 tablet by mouth every four hours as needed 5 mg, oral, Every 4 hours PRN, pain moderate (4-6), second line, Starting on [place] 06/17/24 at 1224, Recovery (only), When able to take oral medications., If ordered PRN for pain, nurse is permitted to administer this medication for higher pain scores based on patient preference? Yes Start: 06-17-2024 take 1 tablet by ede every four hours as needed 10 mg, oral, Every 4 hours PRN, pain severe (7-10), second line, Starting on [place] 06/17/24 at 1224, Recovery (only), When able to take oral medications., If ordered PRN for pain, nurse is permitted to administer this medication for higher pain scores based on patient preference? Yes oxygen (O2) therapy (1 source) Start: 06-17-2024 inhalation, Continuous - , First dose on [place] 06/17/24 at 1245, Recovery (only), Device: Nasal Cannula, Rate in liters per minute: 2 LPM, Keep O2 Sat Above: 92% oxymetazoline hydrochloride 0.5 mg/ml nasal spray (13 sources) Start: 06-17-2024 End: 10-19-2024 oxymetazoline (Afrin, oxymetazoline,) 0.05 % nasal spray Indications: Surgery, elective , Chronic ethmoidal sinusitis Administer 2 sprays into each nostril every 6 hours if needed (bleeding). Do not use for more than 3 days. 30 mL 06/17/2024 Active phenazopyridine hydrochloride 200 mg oral tablet (3 sources) Start: 01-14-2022 take 1 tablet by mouth every eight hours Pyridium 200 MG 1 tablet after meals Orally Three times a day for 2 day(s) January, Active phentermine hydrochloride 37.5 mg oral tablet (16 sources) Sympathomimetic Amine Anorectic Start: 03-05-2024 End: 10-19-2024 take 33-33.9 tablets by mouth once daily before breakfast phentermine (ADIPEX-P) 37.5 mg tablet Indications: Class 1 obesity due to excess calories with serious comorbidity and body mass index (BMI) of 33.0 to 33.9 in adult Take 1 tablet (37.5 mg total) by mouth every morning before breakfast. 30 tablet 06/24/2024 Active Potassium (1 source) Potassium Active Potassium Acetate (2 sources) Start: 03-06-2020 take 1 tablet by mouth once daily potassium acetate = 1 tab(s), Oral, Daily, Refills(s) 0, Prophylaxis Start Date: 03/06/20 Status: Ordered predniSONE 10 mg oral tablet (13 sources) Start: 06-30-2024 take 3 tablets by mouth once daily, then take 2 tablets by mouth once daily, then take 1 tablet by mouth once daily predniSONE (Deltasone) 10 mg tablet Indications: Chronic ethmoidal sinusitis , Nasal polyp 30mg PO Qday for 3 days, 20mg PO Qday for 3 days, 10 mg PO Qday for 4 days 19 tablet 06/30/2024 Active Start: 06-02-2023 End: 01-28-2024 take 1 tablet by mouth twice daily predniSONE (DELTASONE) 20 mg tablet TAKE 1 TABLET BY MOUTH TWICE DAILY 06/02/2023 01/28/2024 Discontinued (Therapy completed) Start: 11-25-2022 End: 12-02-2022 take 3 tablets by mouth once daily predniSONE 20 mg Tab 60 mg = 3 tab(s), Oral, Daily, X 7 day(s), # 21 tab(s), Refills(s) 0, Pharmacy: [facility], 165, cm, 11/25/22 9:56:00 EDT, Height/Length Dosing, 84.2, kg, 11/25/22 9:56:00 EDT, Weight Dosing Start Date: 11/25/22 Stop Date: 12/02/22 Status: Ordered Symbicort 160/4.5 inhalation aerosol with adapter (15 sources) Start: 01-24-2022 take 2 puff(s) by inhalation twice daily Symbicort 160/4.5 inhalation aerosol with adapter 2 puff(s), Inhalation, BID, Refill(s) 0 Start Date: 01/24/22 Status: Ordered traMADol hydrochloride 50 mg oral tablet (13 sources) Opioid Agonist Start: 06-17-2024 End: 10-19-2024 take 1 tablet by mouth every six hours for pain traMADol (Ultram) 50 mg tablet Indications: Surgery, elective , Chronic ethmoidal sinusitis Take 1 tablet (50 mg) by mouth every 6 hours if needed for severe pain (7 - 10). 16 tablet 06/17/2024 Active ubrogepant 100 mg oral tablet (10 sources) Start: 07-24-2023 End: 03-05-2024 take 1 tablet by mouth every two hours as needed ubrogepant (UBRELVY) 100 mg tablet TAKE 1 TABLET BY MOUTH NEEDED FOR MIGRAINE, may repeat dose in 2 (TWO) HOURS for a max OF 200 mg/ day 10 tablet 1 09/18/2023 Active Completed/Discontinued Medications Medication Drug Class(es) Dates Sig (Normalized) Sig (Original) cephalexin 500 mg oral capsule (4 sources) Cephalosporin Antibacterial Start: 06-17-2024 End: 06-24-2024 take 1 capsule by mouth twice daily cephalexin (Keflex) 500 mg capsule Indications: Surgery, elective , Chronic ethmoidal sinusitis Take 1 capsule (500 mg) by mouth 2 times a day for 7 days. 14 capsule 06/17/2024 06/24/2024 Start: 03-31-2022 End: 04-07-2022 take 1 capsule by mouth four times daily Keflex 500 mg Cap 500 mg = 1 cap(s), Oral, QID, X 7 day(s), # 28 cap(s), Refills(s) 0, Pharmacy: [facility], 165, cm, 03/30/22 21:43:00 EDT, Height/Length Dosing, 79.5, kg, 03/30/22 21:43:00 EDT, Weight Dosing Start Date: 03/31/22 Stop Date: 04/07/22 Status: Ordered ciprofloxacin 500 mg oral tablet (10 sources) Quinolone Antimicrobial Start: 02-05-2024 take 1 tablet by mouth once daily Cipro 500 mg Tab 500 mg = 1 tab(s), Oral, Daily, Take 1 tablet the day before the procedure and 1 tablet after the procedure, # 2 tab(s), Refills(s) 0, Pharmacy: [facility], 165, cm, 11/25/23 13:47:00 EDT, Height/Length Dosing, 79.3, kg, 11/25/23 13:47:00 EDT, Weight Dosing Start Date: 02/05/24 Status: Ordered Start: 01-25-2022 Cipro 500 mg T ab See Instructions, Take 1 tab day prior to procedure and 1 tab day of procedure after the procedure., # 2 tab(s), Refills(s) 0, Pharmacy: [facility], 165, cm, 01/24/22 6:15:00 EDT, Height/Length Dosing, 87.5, kg, 01/24/22 6:15:00 EDT, W... Start Date: 01/25/22 Status: Ordered Start: 01-24-2022 take 1 tablet by ede th twice daily Cipro 500 mg Tab 500 mg = 1 tab(s), Oral, BID, # 10 tab(s), Refills(s) 0, Pharmacy: [facility], 165, cm, 01/24/22 6:15:00 EDT, Height/Length Dosing, 87.5, kg, 01/24/22 6:15:00 EDT, Weight Dosing Start Date: 01/24/22 Status: Ordered hydrocortisone 25 mg/ml topical cream (7 sources) Corticosteroid Start: 02-20-2023 End: 01-28-2024 hydrocortisone (HYTONE) 2.5 % cream Apply 1 Application topically in the morning and 1 Application before bedtime. 30 g 02/20/2023 01/28/2024 Discontinued (Therapy completed) Ketorolac (14 sources) Nonsteroidal Anti-inflammatory Drug, Cyclooxygenase Inhibitor Start: 06-22-2019 Toradol per 15 mg Jun, 60 mg Start: 07-10-2016 Toradol per 15 mg Jun, 60 mg Promethazine (14 sources) Phenothiazine Start: 06-22-2019 PROMETHAZINE ( Phenergan) up to 50 mg Jun, 12.5 mg Start: 07-10-2016 PROMETHAZINE ( Phenergan) up to 50 mg Jun, 25 mg sodium chloride 0.111 meq/ml nasal spray (2 sources) Start: 06-17-2024 End: 06-27-2024 sodium chloride (Arthur) 0.65 % nasal spray Indications: Surgery, elective , Chronic ethmoidal sinusitis Administer 2 sprays into each nostril 6 times a day for 10 days. 44 mL 06/17/2024 06/27/2024 Toradol 30 mg/ml (8 sources) Start: 06-15-2023 Toradol 30 mg/ ml Jun, 30 mg Start: 06-02-2021 Toradol 30 mg/ ml May, 30 mg triamcinolone acetonide 40 mg/ml injectable suspension (1 source) Corticosteroid Start: 06-15-2023 Kenalog-40 Jun, 40 mg Problems Active Problems Problem Classification Problem Date Documented Date Episodic/Chronic Abdominal pain (4 sources) Abdominal pain; Translations: [Unspecified abdominal pain] Onset: 01-17-2025 01-17-2025 Episodic Asthma (20 sources) Asthma; Translations: [Unspecified asthma, uncomplicated] Onset: 07-12-2021 Resolved: 07-12-2021 Chronic Esophageal disorders (20 sources) Gastroesophageal reflux disease; Translations: [Gastro-esophageal reflux disease without esophagitis] Onset: 06-17-2024 06-17-2024 Chronic Essential hypertension (20 sources) Hypertensive disorder; Translations: [Essential hypertension] Onset: 11-26-2019 Resolved: 12-05-2022 11-15-2019 Chronic Genitourinary congenital anomalies (20 sources) Medullary cystic disease of the kidney; 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] Onset: 12-17-2019 12-05-2022 Chronic Genitourinary symptoms and ill-defined conditions (6 sources) Dysuria; Translations: [Hematuria, unspecified] Onset: 01-14-2022 Resolved: 01-14-2022 Episodic Headache; including migraine (14 sources) Migraine; Translations: [Migraine, unspecified, not intractable, without status migrainosus] 12-29-2023 Chronic Influenza (1 source) Influenza Onset: 01-17-2025 Mood disorders (3 sources) Depressive disorder; Translations: [Depression] 12-29-2023 Chronic Nausea and vomiting (1 source) Nausea with vomiting, unspecified; Translations: [Nausea with vomiting, unspecified] Onset: 01-17-2025 Episodic Osteoporosis (1 source) Osteoporosis; Translations: [Age-related osteoporosis without current pathological fracture] 05-18-2024 Chronic Other liver diseases (1 source) Enzyme level - finding; Translations: [Abnormal levels of other serum enzymes] Onset: 01-24-2022 Episodic Other lower respiratory disease (1 source) Personal history of other diseases of the respiratory system Episodic Other nervous system disorders (2 sources) Sense of smell impaired; Translations: [Other disturbances of smell and taste] 08-11-2024 Episodic Other nutritional; endocrine; and metabolic disorders (1 source) Obesity; Translations: [Obesity, unspecified] Onset: 01-24-2022 Chronic Other nutritional; endocrine; and metabolic disorders (20 sources) Body mass index 30+ - obesity; Translations: [Body mass index (BMI) 33.0-33.9, adult] Onset: 10-25-2022 12-29-2023 Chronic Other nutritional; endocrine; and metabolic disorders (2 sources) Body mass index (BMI) 33.0-33.9, adult; Translations: [Body Mass Index 33.0-33.9, adult] Onset: 03-05-2024 12-29-2023 Chronic Other nutritional; endocrine; and metabolic disorders (6 sources) Obesity caused by energy imbalance; Translations: [Other obesity due to excess calories] 01-28-2024 Chronic Other nutritional; endocrine; and metabolic disorders (1 source) Body mass index (BMI) 31.0-31.9, adult; Translations: [Body mass index (BMI) 31.0-31.9, adult] Onset: 04-01-2024 Chronic Other nutritional; endocrine; and metabolic disorders (1 source) Other obesity due to excess calories; Translations: [Other obesity due to excess calories] Onset: 03-05-2024 Chronic Other screening for suspected conditions (not mental disorders or infectious disease) (4 sources) Patient encounter status; Translations: [Encounter for procedure for purposes other than remedying health state, unspecified] 06-17-2024 Episodic Other screening for suspected conditions (not mental disorders or infectious disease) (3 sources) Mammography abnormal; Translations: [Other abnormal and inconclusive findings on diagnostic imaging of breast] Onset: 05-06-2024 11-07-2023 Episodic Other upper respiratory disease (1 source) Allergic rhinitis, unspecified Chronic Other upper respiratory disease (2 sources) Allergic rhinitis; Translations: [Allergic rhinitis, unspecified] 09-09-2024 Chronic Other upper respiratory disease (1 source) Nasal congestion Episodic Other upper respiratory disease (2 sources) Nasal congestion; Translations: [Nasal congestion] 06-30-2024 Episodic Other upper respiratory disease (1 source) Deviated nasal septum; Translations: [Deviated nasal septum] Onset: 04-07-2024 Episodic Other upper respiratory infections (20 sources) Sinusitis; Translations: [Chronic ethmoidal sinusitis] Onset: 01-12-2024 03-11-2024 Chronic Other upper respiratory infections (2 sources) Acute upper respiratory infection, unspecified; Translations: [Acute pharyngitis, unspecified] Episodic Pneumonia (except that caused by tuberculosis or sexually transmitted disease) (6 sources) Pneumonia; Translations: [Pneumonia, unspecified organism] Onset: 11-25-2022 Episodic Residual codes; unclassified (6 sources) Sleep apnea; Translations: [Sleep apnea, unspecified] Onset: 01-26-2025 Chronic Residual codes; unclassified (1 source) Sleep apnea, unspecified Chronic Residual codes; unclassified (20 sources) Obstructive sleep apnea syndrome; Translations: [Obstructive sleep apnea (adult) (pediatric)] Onset: 10-25-2022 12-29-2023 Chronic Residual codes; unclassified (4 sources) Obstructive sleep apnea (adult) (pediatric); Translations: [Obstructive sleep apnea (adult)(pediatric)] Onset: 10-25-2022 Chronic Residual codes; unclassified (1 source) Pain; Translations: [Pain, unspecified] Onset: 01-24-2022 Episodic Residual codes; unclassified (1 source) Procedure carried out on subject; Translations: [Encounter for prophylactic measures, unspecified] Onset: 01-24-2022 Episodic Residual codes; unclassified (7 sources) Restless sleep; Translations: [Sleep disorder, unspecified] 12-29-2023 Episodic Residual codes; unclassified (2 sources) Sleep disorder, unspecified; Translations: [Sleep disturbance, unspecified] Episodic Residual codes; unclassified (2 sources) Encounter for procedure for purposes other than remedying health state, unspecified; Translations: [Encounter for procedure for purposes other than remedying health state, unspecified] Onset: 06-17-2024 Episodic Residual codes; unclassified (1 source) Other specified health status; Translations: [Other specified conditions influencing health status] 01-27-2025 Episodic Spondylosis; intervertebral disc disorders; other back problems (2 sources) Thoracic spondylosis without myelopathy; Translations: [Spondylosis without myelopathy or radiculopathy, thoracic region] Onset: 01-13-2025 01-13-2025 Chronic Spondylosis; intervertebral disc disorders; other back problems (8 sources) Thoracic back pain; Translations: [Dorsalgia, unspecified] Onset: 12-30-2024 12-30-2024 Episodic Thyroid disorders (20 sources) Graves' disease; Translations: [Hyperthyroidism] Onset: 01-24-2022 09-18-2020 Chronic Unclassified (2 sources) Post-op; Translations: [Post-op] Onset: 06-23-2024 Unclassified (2 sources) New Patient Visit; Translations: [New Patient Visit] Onset: 03-04-2024 Unclassified (1 source) New Patient Onset: 01-26-2025 Unclassified (1 source) Obesity, class 1; Translations: [Obesity, class 1] Onset: 06-24-2024 Unclassified (1 source) Annual Exam Onset: 05-06-2024 Unclassified (1 source) Weight Check Onset: 04-01-2024 Unclassified (1 source) BP Onset: 03-05-2024 Unclassified (1 source) Extremity Pain Onset: 01-13-2025 Unclassified (1 source) Personal history of adenomatous and serrated colon polyps; Translations: [Personal history of adenomatous and serrated colon polyps] Onset: 10-20-2024 Unclassified (1 source) Personal history of adenomatous and serrated colon polyps [Z86.0101] Onset: 10-20-2024 Urinary tract infections (3 sources) Urinary tract infection, site not specified; Translations: [Urinary tract infectious disease] Onset: 01-14-2022 Resolved: 01-14-2022 Episodic Past or Other Problems Problem Classification Problem Date Documented Da te Episodic/Chronic Abdominal hernia (20 sources) Hiatal hernia; Translations: [Diaphragmatic hernia without obstruction or gangrene] Onset: 06-17-2024 06-17-2024 Episodic Anal and rectal conditions (9 sources) Rectal polyp; Translations: [Rectal polyp] Onset: 10-20-2024 10-20-2024 Episodic Calculus of urinary tract (20 sources) Kidney stone; Translations: [Calculus of kidney] Onset: 01-24-2022 Episodic Fluid and electrolyte disorders (20 sources) Hypokalemia; Translations: [Hypokalemia] Onset: 12-17-2019 12-05-2022 Episodic Headache; including migraine (1 source) Headache; including migraine Immunizations and screening for infectious disease (3 sources) Contact with and (suspected) exposure to other viral communicable diseases; Translations: [Influenza vaccination given] Onset: 07-12-2021 Resolved: 07-12-2021 Episodic Mood disorders (20 sources) Mood disorders Onset: 06-24-2024 Resolved: 01-27-2025 06-24-2024 Other aftercare (1 source) 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; 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] Onset: 02-28-2022 Episodic Other aftercare (1 source) 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 therapy; Translations: [OTH ALF 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 THERAPY] Onset: 02-28-2022 Episodic Other and unspecified benign neoplasm (12 sources) History of polyp of colon; Translations: [Personal history of adenomatous and serrated colon polyps] Onset: 08-01-2024 08-10-2024 Episodic Other and unspecified benign neoplasm (1 source) Personal history of colonic polyps; Translations: [Personal history of colonic polyps] Onset: 05-06-2024 Episodic Other connective tissue disease (4 sources) Pain in right foot; Translations: [PAIN IN RIGHT FOOT] Onset: 02-28-2022 Episodic Other nervous system disorders (6 sources) H/O: migraine; Translations: [Personal history of other diseases of the nervous system and sense organs] Onset: 06-17-2024 06-17-2024 Episodic Other non-traumatic joint disorders (5 sources) Pain in right ankle and joints of right foot; Translations: [PAIN IN RIGHT ANKLE] Onset: 02-27-2022 Episodic Other nutritional; endocrine; and metabolic disorders (20 sources) Body mass index 25-29 - overweight; Translations: [Overweight] Onset: 10-25-2022 11-15-2019 Episodic Other upper respiratory disease (20 sources) Deviated nasal septum; Translations: [Deviated nasal septum] Onset: 04-07-2024 06-17-2024 Episodic Other upper respiratory disease (20 sources) Polyp of nasal cavity and/or nasal sinus; Translations: [Nasal polyp, unspecified] Onset: 01-12-2024 06-30-2024 Episodic Other upper respiratory disease (3 sources) Nasal polyp, unspecified; Translations: [Nasal polyp, unspecified] Onset: 01-28-2024 Episodic Pulmonary heart disease (20 sources) Other pulmonary embolism without acute cor pulmonale; Translations: [Pulmonary embolism] Onset: 04-19-2022 Episodic Unclassified (1 source) Contact with and (suspected) exposure to covid-19 Z20.822 Unclassified (3 sources) Onset: 06-30-2024 Resolved: 12-08-2024 06-30-2024 Results Test Name Value Interpretation Reference Range Facility CBC WITH AUTO DIFFERENTIALon 01-18-2025 BASOPHILS ABSOLUTE COUNT (10*3/UL) BY AUTOMATED COUNT 0.0 10*3/uL Normal [facility] Comment on above: Performed By: #### C BCA ####[facility] ([place] [address] VIR BASOPHILS RELATIVE PERCENT BY AUTOMATED COUNT 0.4 % Normal [facility] Comment on above: Performed By: #### C BCA ####[facility] ([address] [address] VIR CELLAVISION DIFFERENTIAL TYPE AUTOMATED DIFFERENTIAL Normal [facility] Comment on above: Performed By: #### C BCA ####[facility] ([address] [address] VIR Eosinophils (Bld) [#/Vol] 0.0 10*3/uL Normal [facility] Comment on above: Performed By: #### C BCA ####[facility] ([address] [address] VIR EOSINOPHILS RELATIVE PERCENT BY AUTOMATED COUNT 0.5 % Normal [facility] Comment on above: Performed By: #### C BCA ####[facility] ([address] [address] VIR Erythrocyte distribution width (RBC) [Ratio] 14.3 % Normal 11.5-15 [facility] Comment on above: Performed By: #### C BCA ####[facility] ([address] [address] VIR Hematocrit (Bld) [Volume fraction] 34.3 % Low 35-47 [facility] Comment on above: Performed By: #### C BCA ####[facility] ([address] [place] [address] VIR Hemoglobin (Bld) [Mass/Vol] 11.7 g/dL Normal 11.7-15.5 [facility] Comment on above: Performed By: #### C BCA ####[facility] ([address] [address] VIR LYMPHOCYTES ABSOLUTE COUNT (10*3/UL) BY AUTOMATED COUNT 1.8 10*3/uL Normal [facility] Comment on above: Performed By: #### C BCA ####[facility] ([facility] [address] [place] [address] VIR LYMPHOCYTES RELATIVE PERCENT BY AUTOMATED COUNT 16.8 % Normal [facility] Comment on above: Performed By: #### C BCA ####[facility] ([facility])[address] [place] [address] [place] [address] VIR MCH (RBC) [Entitic mass] 30.0 pg Normal 27-34 [facility] Comment on above: Performed By: #### C BCA ####[facility] ([address] [place] [address] VIR MCHC (RBC) [Mass/Vol] 34.2 g/dL Normal 32-36 [facility] Comment on above: Performed By: #### C BCA ####[facility] ([address] [place] [address] VIR MCV (RBC) [Entitic vol] 88 fL Normal 80-100 [facility] Comment on above: Performed By: #### C BCA ####[facility] ([address] [place] [address] VIR MONOCYTES ABSOLUTE COUNT (10*3/UL) BY AUTOMATED COUNT 1.2 10*3/uL Normal [facility] Comment on above: Performed By: #### C BCA ####[facility] ([address] [place] [address] VIR MONOCYTES RELATIVE PERCENT BY AUTOMATED COUNT 10.9 % Normal [facility] Comment on above: Performed By: #### C BCA ####[facility] ([address] [place] [address] VIR NEUTROPHILS ABSOLUTE COUNT BY AUTOMATED COUNT 7.6 10*3/uL Normal [facility] Comment on above: Performed By: #### C BCA ####[facility] ([place] [address] [place] [address] VIR NEUTROPHILS RELATIVE PERCENT BY AUTOMATED COUNT 71.4 % Normal [facility] Comment on above: Performed By: #### C BCA ####[facility] ([address] [place] [address] VIR Platelet mean volume (Bld) [Entitic vol] 8.8 fL Normal 7-12 [facility] Comment on above: Performed By: #### C BCA ####[facility] ([address] [place] [address] VIR Platelets (Bld) [#/Vol] 251 10*3/uL Normal 150-450 [facility] Comment on above: Performed By: #### C BCA ####[facility] ([address] [place] [address] VIR RBC COUNT 3.92 X10E12/L Normal 3.8-5.2 [facility] Comment on above: Performed By: #### C BCA ####[facility] ([address] [place] [address] VIR WBC (Bld) [#/Vol] 10.7 10*3/uL Normal 4-11 [facility] Comment on above: Performed By: #### C BCA ####[facility] ([address] [place] [address] VIR COMPREHENSIVE METABOLIC PANE Hitesh 01-18-2025 Albumin [Mass/Vol] 2.4 g/dL Low 3.2-5.3 [facility] Comment on above: Performed By: #### C MP ####[facility] ([address] [place] [address] VIR ALP [Catalytic activity/Vol] 98 U/L Normal 39-130 [facility] Comment on above: Performed By: #### C MP ####[facility] ([address] [place] [address] VIR ALT [Catalytic activity/Vol] 30 U/L Normal <=31 [facility] Comment on above: Performed By: #### C MP ####[facility] ([address] [place] [address] VIR Anion gap [Moles/Vol] 5 mmol/L Normal 5-15 [facility] Comment on above: Performed By: #### C MP ####[facility] ([address] [place] [address] VIR AST [Catalytic activity/Vol] 26 U/L Normal <=41 [facility] Comment on above: Performed By: #### C MP ####[facility] ([address] [place] [address] VIR Bilirubin [Mass/Vol] 0.7 mg/dL Normal 0.3-1.2 [facility] Comment on above: Performed By: #### C MP ####[facility] ([address] [place] [address] VIR Calcium [Mass/Vol] 7.4 mg/dL Low 8.5-10.5 [facility] Comment on above: Performed By: #### C MP ####[facility] ([address] [place] [address] VIR Chloride [Moles/Vol] 109 mmol/L Normal 98-109 [facility] Comment on above: Performed By: #### C MP ####[facility] ([address] [place] [address] VIR CO2 [Moles/Vol] 25 mmol/L Normal 22-32 [facility] Comment on above: Performed By: #### C MP ####[facility] ([address] [place] [address] VIR Creatinine [Mass/Vol] 0.43 mg/dL Normal 0.40-1.00 [facility] Comment on above: Result Comment: METH OD TRACEABLE TO IDMS STANDARD Performed By: #### C MP ####[facility] ([facility] [address] [place] [address] VIR EGFR (CKD-EPI) NON-RACE DEPENDENT >^90 Normal >=60 [facility] Comment on above: Result Comment: eGFR not reported due to non-numeric value for Creatinine. Reported eGFR is based on the CKD-EPI 2020 equation that does not use a race coefficient. Performed By: #### C MP ####[facility] ([address] [place] [address] VIR Glucose [Mass/Vol] 96 mg/dL Normal 65-99 [facility] Comment on above: Performed By: #### C MP ####[facility] ([address] [place] [address] VIR Potassium [Moles/Vol] 3.9 mmol/L Normal 3.5-5.0 [facility] Comment on above: Performed By: #### C MP ####[facility] ([address] [place] [address] VIR Protein [Mass/Vol] 5.9 g/dL Low 6.0-8.0 [facility] Comment on above: Performed By: #### C MP ####[facility] ([address] [place] [address] VIR Sodium [Moles/Vol] 139 mmol/L Normal 134-146 [facility] Comment on above: Performed By: #### C MP ####[facility] ([address] [place] [address] VIR Urea nitrogen [Mass/Vol] 15 mg/dL Normal 5-27 [facility] Comment on above: Performed By: #### C MP ####[facility] ([address] [place] [address] VIR MAGNESIUMon 01-18-2025 Magnesium [Mass/Vol] 2.2 mg/dL Normal 1.8-2.6 [facility] Comment on above: Performed By: #### M G ####[facility] ([facility])[address] [place] [address] [place] [address] VIR BLOOD CULTUREon 01-17-2025 Bacteria identified Cx Nom (Bld) CULTURE RESULTS NO GROWTH 5 DAYS Normal [facility] Comment on above: Order Comment: *SIRS Criteria: (must display 2 without other explanation)-Temperature < 36 or >38-Pulse >90-Resp rate >20-WBC less than 4K or greater than 12KRepeat blood cultures not needed:-To document that a blood culture is a contaminant when 1 of 2 bottles is positive for a common contaminant (already listed in [facility] with the culture result)-To document clearance of gram negative bacteremia in patients with suspected urinary source who are improvingSuboptimal volume of blood collected, Results may be affected. Performed By: #### B C ####[facility] ([facility])[address] [address] VIR Bacteria identified Cx Nom (Bld) CULTURE RESULTS NO GROWTH 5 DAYS Normal [facility] Comment on above: Order Comment: *SIRS Criteria: (must display 2 without other explanation)-Temperature < 36 or >38-Pulse >90-Resp rate >20-WBC less than 4K or greater than 12KRepeat blood cultures not needed:-To document that a blood culture is a contaminant when 1 of 2 bottles is positive for a common contaminant (already listed in [facility] with the culture result)-To document clearance of gram negative bacteremia in patients with suspected urinary source who are improving Performed By: #### B C ####[facility] ([facility])[address] [facility] [address] [place] [address] VIR CBC WITH AUTO DIFFERENTIALon 01-17-2025 BASOPHILS ABSOLUTE COUNT (10*3/UL) BY AUTOMATED COUNT 0.0 10*3/uL Normal [facility] Comment on above: Performed By: #### C BCA #### [facility] ([facility]) [address] [place] [address] [place] [address] VIR BASOPHILS RELATIVE PERCENT BY AUTOMATED COUNT 0.2 % Normal [facility] Comment on above: Performed By: #### C BCA #### [facility] ([address] [address] VIR CELLAVISION DIFFERENTIAL TYPE AUTOMATED DIFFERENTIAL Normal [facility] Comment on above: Performed By: #### C BCA #### [facility] ([address] [address] VIR Eosinophils (Bld) [#/Vol] 0.0 10*3/uL Normal [facility] Comment on above: Performed By: #### C BCA #### [facility] ([address] [address] VIR EOSINOPHILS RELATIVE PERCENT BY AUTOMATED COUNT 0.0 % Normal [facility] Comment on above: Performed By: #### C BCA #### [facility] ([address] [address] VIR Erythrocyte distribution width (RBC) [Ratio] 13.8 % Normal 11.5-15 [facility] Comment on above: Performed By: #### C BCA #### [facility] ([address] [address] VIR Hematocrit (Bld) [Volume fraction] 39.5 % Normal 35-47 [facility] Comment on above: Performed By: #### C BCA #### [facility] ([address] [address] VIR Hemoglobin (Bld) [Mass/Vol] 13.4 g/dL Normal 11.7-15.5 [facility] Comment on above: Performed By: #### C BCA #### [facility] ([address] [address] VIR LYMPHOCYTES ABSOLUTE COUNT (10*3/UL) BY AUTOMATED COUNT 0.7 10*3/uL Normal [facility] Comment on above: Performed By: #### C BCA #### [facility] ([address] [place] [address] VIR LYMPHOCYTES RELATIVE PERCENT BY AUTOMATED COUNT 3.9 % Normal [facility] Comment on above: Performed By: #### C BCA #### [facility] ([address] [place] [address] VIR MCH (RBC) [Entitic mass] 29.5 pg Normal 27-34 [facility] Comment on above: Performed By: #### C BCA #### [facility] ([address] [place] [address] VIR MCHC (RBC) [Mass/Vol] 34.0 g/dL Normal 32-36 [facility] Comment on above: Performed By: #### C BCA #### [facility] ([address] [place] [address] VIR MCV (RBC) [Entitic vol] 87 fL Normal 80-100 [facility] Comment on above: Performed By: #### C BCA #### [facility] ([address] [place] [address] VIR MONOCYTES ABSOLUTE COUNT (10*3/UL) BY AUTOMATED COUNT 1.1 10*3/uL Normal [facility] Comment on above: Performed By: #### C BCA #### [facility] ([address] [place] [address] VIR MONOCYTES RELATIVE PERCENT BY AUTOMATED COUNT 6.7 % Normal [facility] Comment on above: Performed By: #### C BCA #### [facility] ([address] [place] [address] VIR NEUTROPHILS ABSOLUTE COUNT BY AUTOMATED COUNT 15.0 10*3/uL Normal [facility] Comment on above: Performed By: #### C BCA #### [facility] ([address] [place] [address] VIR NEUTROPHILS RELATIVE PERCENT BY AUTOMATED COUNT 89.2 % Normal [facility] Comment on above: Performed By: #### C BCA #### [facility] ([address] [place] [address] VIR Platelet mean volume (Bld) [Entitic vol] 8.2 fL Normal 7-12 [facility] Comment on above: Performed By: #### C BCA #### [facility] ([address] [place] [address] VIR Platelets (Bld) [#/Vol] 289 10*3/uL Normal 150-450 [facility] Comment on above: Performed By: #### C BCA #### [facility] ([address] [place] [address] VIR RBC COUNT 4.56 X10E12/L Normal 3.8-5.2 [facility] Comment on above: Performed By: #### C BCA #### [facility] ([address] [place] [address] VIR WBC (Bld) [#/Vol] 16.9 10*3/uL High 4-11 [facility] Comment on above: Performed By: #### C BCA #### [facility] ([address] [place] [address] VIR COMPREHENSIVE METABOLIC PANE Hitesh 01-17-2025 Albumin [Mass/Vol] 3.1 g/dL Low 3.2-5.3 [facility] Comment on above: Performed By: #### C MP #### [facility] ([address] [place] [address] VIR ALP [Catalytic activity/Vol] 122 U/L Normal 39-130 [facility] Comment on above: Performed By: #### C MP #### [facility] ([address] [place] [address] VIR ALT [Catalytic activity/Vol] 37 U/L High <=31 [facility] Comment on above: Performed By: #### C MP #### [facility] ([place] [address] [place] [address] VIR Anion gap [Moles/Vol] 8 mmol/L Normal 5-15 [facility] Comment on above: Performed By: #### C MP #### [facility] ([place] [address] [place] [address] VIR AST [Catalytic activity/Vol] 20 U/L Normal <=41 [facility] Comment on above: Performed By: #### C MP #### [facility] ([place] [address] [place] [address] VIR Bilirubin [Mass/Vol] 0.6 mg/dL Normal 0.3-1.2 [facility] Comment on above: Performed By: #### C MP #### [facility] ([place] [address] [place] [address] VIR Calcium [Mass/Vol] 8.5 mg/dL Normal 8.5-10.5 [facility] Comment on above: Performed By: #### C MP #### [facility] ([address] [address] VIR Chloride [Moles/Vol] 106 mmol/L Normal 98-109 [facility] Comment on above: Performed By: #### C MP #### [facility] ([place] [address] [place] [address] VIR CO2 [Moles/Vol] 25 mmol/L Normal 22-32 [facility] Comment on above: Performed By: #### C MP #### [facility] ([place] [address] [place] [address] VIR Creatinine [Mass/Vol] 0.52 mg/dL Normal 0.40-1.00 [facility] Comment on above: Result Comment: METH OD TRACEABLE TO IDMS STANDARD Performed By: #### C MP #### [facility] ([address] [place] [address] VIR EGFR (CKD-EPI) NON-RACE DEPENDENT >^90 Normal >=60 [facility] Comment on above: Result Comment: eGFR not reported due to non-numeric value for Creatinine. Reported eGFR is based on the CKD-EPI 2020 equation that does not use a race coefficient. Performed By: #### C MP #### [facility] ([address] [place] [address] VIR Glucose [Mass/Vol] 125 mg/dL High 65-99 [facility] Comment on above: Performed By: #### C MP #### [facility] ([address] [place] [address] VIR Potassium [Moles/Vol] 3.3 mmol/L Low 3.5-5.0 [facility] Comment on above: Performed By: #### C MP #### [facility] ([address] [place] [address] VIR Protein [Mass/Vol] 7.4 g/dL Normal 6.0-8.0 [facility] Comment on above: Performed By: #### C MP #### [facility] ([address] [place] [address] VIR Sodium [Moles/Vol] 139 mmol/L Normal 134-146 [facility] Comment on above: Performed By: #### C MP #### [facility] ([address] [place] [address] VIR Urea nitrogen [Mass/Vol] 23 mg/dL Normal 5-27 [facility] Comment on above: Performed By: #### C MP #### [facility] ([address] [place] [address] ABDOMEN AND PELVIS W CONT on 01-17-2025 CT ABDOMEN AND PELVIS W CONT CT ABDOMEN AND PELVIS W CONT CLINICAL INFORMATION: right sided lower abd pain with N/V, possible subjective fevers, has had appenedectomy hysterectomy and cholecystectomy TECHNIQUE: CT ABDOMEN AND PELVIS W CONT CT images of the abdomen and pelvis are obtained. Intravenous contrast was administered. Patient status post appendectomy and cholecystectomy. There is a moderate hiatal hernia noted. Bowel is nondistended. No pericecal inflammatory stranding. No colonic wall thickening identified. There are a few colonic diverticula appreciated. Portal and mesenteric vessels appear to enhance normally. Osseous structures are intact. Lung bases clear. No free pelvic fluid. IMPRESSION: Moderate hiatal hernia. All CT scans at this facility use dose modulation, iterative reconstruction, and/or weight based dosing when appropriate to reduce radiation dose to as low as reasonably achievable. Finalized by Justin De Luna MD on 01/17/2025 11:39 AM Normal [facility] LACTATE W/ REFLEXon 01-18-20 25 LACTATE W/REFLEX 1.2 mmol/L Normal 0.4-2.0 [facility] Comment on above: Order Comment: Resul t did not trigger repeat Lactate, re-order if needed. Performed By: #### L ACTS #### [address] [address] VIR LIPASEon 01-17-2025 Lipase [Catalytic activity/Vol] 20 U/L Normal 17-40 [facility] Comment on above: Performed By: #### L IPA #### [facility] ([address] [place] [address] VIR MAGNESIUMon 01-17-2025 Magnesium [Mass/Vol] 2.2 mg/dL Normal 1.8-2.6 [facility] Comment on above: Performed By: #### M G #### [address] [address] VIR POTASSIUMon 01-17-2025 Potassium [Moles/Vol] 3.3 mmol/L Low 3.5-5.0 [facility] Comment on above: Performed By: #### K ####[facility] ([facility])[address] [place] [address].[place] [address] VIR PROCALCITONINon 01-17-2025 PROCALCITONIN 0.81 ng/mL High <0.05 [facility] Comment on above: Order Comment: <0.50 ng/mL - Low risk of severe sepsis and/or septic shock.<2.00 ng/mL - Recommend retesting within 6-24 hours.>2.00 ng/mL - High risk of sepsis and/or septic shock. Performed By: #### P REEMA ####[facility] ([facility])[address] [place] [address] VIR SARS/FLU A+B/RSV BY NAAT/MOL ECULAR (M4RT COLLECTION TUBE)on 01-17-2025 SARS/FLU A+B/RSV BY NAAT/MOLECULAR (M4RT COLLECTION TUBE) FLU A PCR Negative FLU B PCR Negative RSV BY PCR Negative SARS COV 2 BY PCR Not Detected Normal Not Detected [facility] Comment on above: Order Comment: The X pert Xpress SARS-CoV-2/Flu/RSV Plus test is a rapid, multiplexed real-time RT-PCR test intended for the simultaneous qualitative detection and differentiation of SARS-CoV-2, influenza A, influenza B and respiratory syncytial virus (RSV) viral RNA from individuals suspected of respiratory viral infection consistent with COVID-19 by Their healthcare provider. This test has not been validated in asymptomatic patients. The Xpert Xpress SARS-CoV-2 test is intended for use by qualified and trained operators who are performing tests using either [employer] DX or [employer] Endeavors systems and is limited to laboratories that meet the CLIA requirements to perform high and moderate complexity tests. The Xpert Xpress SARS-CoV-2/Flu/RSV Plus is only for use under the Food and Drug Administration's Emergency Use Authorization. Results are for the simultaneous detection and differentiation of SARS-CoV-2, influenza A, influenza B and RSV nucleic acids in clinical specimens. SARS-CoV-2, influenza A, influenza B and RSV RNA identified by this test are generally detectable in upper respiratory samples during the acute phase of infection. Positive results are Indicative of the presence of the identified virus, but do not rule out bacterial infection or co-infection with other pathogens not detected by this test. Clinical correlation with patient history and other diagnostic information is necessary to determine patient infection status. The agent detected may not be the definite cause of disease. Negative results do not preclude SARS-CoV-2, influenza A, influenza B and RSV infection and should not be used as the sole basis for treatment or other patient management decisions. Negative results must be combined with clinical observations, patient history and epidemiological information. An Invalid result may occur with specimen-associated inhibition unable to be resolved with specimen repeat.Fact Sheet for Healthcare Providers:https://www.fda.gov/media/019325/downloadFact Sheet for Patients:https://www.fda.gov/media/445050/download Performed By: #### C OVFLR ####[address] [address] VIR TROP I, HIGH SENSITIVITY 1 H OURon 01-17-2025 TROPONIN I, HIGH SENSITIVITY 9 ng/L Normal <16 [facility] Comment on above: Performed By: #### T NIHS1 ####[address] [address] VIR TROPONIN I, HIGH SENSITIVITY 0 HOURon 01-17-2025 TROPONIN I, HIGH SENSITIVITY 7 ng/L Normal <16 [facility] Comment on above: Performed By: #### T NIHS0 ####[address] [address] VIR XR CHEST 1 VWon 01-17-2025 XR CHEST 1 VW XR CHEST 1 VW Single view chest History:flu like symptoms since Friday Difficulty breathing, shortness of breath Comparison: 11/13/2020 Findings: Single portable view of the chest. Right upper lobe opacity compatible with pneumonia. No large effusion or pneumothorax. Cardiomediastinal silhouette is stable. Impression: Right upper lobe pneumonia. Finalized by Cordell Stone MD on 01/17/2025 10:50 AM Normal [facility] XR SPINE CERVICAL 3 VWS OR L ESSon 01-01-2025 XR SPINE CERVICAL 3 VWS OR LESS XR SPINE CERVICAL 3 VWS OR LESS EXAM: XR SPINE CERVICAL 3 VWS OR LESS CLINICAL INDICATIONS: Neck pain FINDINGS/IMPRESSION: Vertebral body heights, alignment is maintained. No significant intervertebral disc space narrowing. Mild multilevel facet arthropathy. Diffuse bone demineralization for age. Spinal canal or neuroforaminal narrowing is better assessed on MRI if clinically warranted. Finalized by Panda Alvarenga on 01/01/2025 11:12 PM Normal [facility] XR SPINE THORACIC 3 VWSon XR SPINE THORACIC 3 VWS XR SPINE THORACIC 3 VWS XR SPINE THORACIC 3 VWS Clinical history:Mid back pain on left side Comparison: None. Findings: Exaggerated thoracic kyphosis with multilevel degenerative disc disease. No vertebral body height loss. Impression: Multilevel degenerative disc disease without evidence of acute osseous abnormality. Finalized by Cordell Stone MD on 01/01/2025 11:08 AM Normal [facility] Urine Cultureon 12-13-2024 Bacteria identified Cx Nom (U) >100,000 colonies/ml mixed bacterial skin contaminants 2 Days PERFORMED BY: [place] [address] PATHOLOGIST STOCK SHAPER VELASQUEZ LEONG M.D. Normal 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 Computer aided detection was utilized. FINDINGS: There are scattered areas of fibroglandular density. There are no suspicious masses, calcifications, or areas of architectural distortion. IMPRESSION: No mammographic evidence of malignancy. BI-RADS: BI-RADS 1 - Negative RECOMMENDATION: Routine screening mammogram in 1 year. RISK ASSESSMENT: TC Lifetime risk: 3.7%. The patient's reported personal and family medical history was used calculate their Tyrer-Cuzick lifetime risk of malignancy. Scores less than 20% are not considered high risk per ACR guidelines and patient should continue with the above recommendation. Finalized by Niru Palmer MD on 12/03/2024 9:32 AM 1 b MAMM 1 YR Normal [facility] Surgical Pathologyon 025 Surgical Pathology Normal [facility] Comment on above: Result Comment: [facility] [address] [place] [address] Surgical Pathology Consultation Patient Name:YANI JOSEPH:1960 (Age: 64)Gender:FTaken:10/20/2024Reported:10/24/2024Physician(s):Mariusz Simon MD ([phone])Copy To: Rec. #:[id number]: #[id number] Final Pathologic Diagnosis Rectal polyp - polypectomy: - Hyperplastic polyp Report Electronically Signed Out jaimes10/24/2024Howard Bates MD [place] [address], License number: [id number]. Clinical History Personal history of adenomatous and serrated colon polyps Z86.0101. Gross Description Received in formalin labeled OPAL, rectum is a pale-wiggins delicate soft tissue bit, is a pale-wiggins delicate soft tissue bit, 0.3 cm in greatest dimension. The specimen is filtered and submitted in single cassette. (1,ns,[id number], m8) TB tgb/10/21/2024GR Specimen(s) Received Rectal polyp Fee Codes(s): 1; 19502 Patient Letter FTon 2023 [place] [facility] [place] [facility] [place] 13, 2024 YANI JOSEPH [address] [place] [address] : 1960 Dear Yani, This is a reminder that you are due for an appointment with Ovid Yehuda [facility]. Please contact our office at [phone] to schedule an appointment at your earliest convenience. Thank you, [facility] Normal [facility] Surgical pathology studyon 1 Surgical pathology study Pathology report.total SEE COMMENT Surgical Pathology Case: [id number] Authorizing Provider: Toni Bansal MD Collected: 06/17/2024 0917 Ordering Location: [facility] Received: 06/18/2024 0346 OR Pathologist: Emily Mcnulty MD Specimens: A) - SINUS CONTENTS RIGHT, RIGHT SINUS CONTENTS B) - SINUS CONTENTS LEFT, LEFT SINUS CONTENTS C) - SINUS CONTENTS BILATERAL, BILATERAL SINUS MICRODEBRIDER CONTENTS Path report.final diagnosis SEE COMMENT A. SINUS CONTENTS RIGHT: -- Respiratory mucosa with chronic inflammation and eosinophils. --Bone with no significant histopathologic abnormality. B. SINUS CONTENTS LEFT: -- No diagnosis due to no tissue identified in the container or processed slide. Note: Dr Bansal notified via chat. C. SINUS CONTENTS BILATERAL: --Respiratory mucosa with chronic inflammation and eosinophils. --Bone with no significant histopathologic abnormality. Laboratory comment By the signature on this report, the individual or group listed as making the Final Interpretation/Diagnosis certifies that they have reviewed this case. Path report.relevant Hx SEE COMMENT Pre-op diagnosis: Deviated nasal septum [J34.2] Chronic ethmoidal sinusitis [J32.2] Path report.gross observation SEE COMMENT A: Received in formalin, labeled with the patient's name and hospital number and right sinus contents , are 2 irregular segments of light wiggins cartilage, bone, and soft tissue aggregating to 3.0 x 1.3 x 0.4 cm. Groundskeeping Maintenance sections are submitted in one cassette following decalcification. LMP B: Received in formalin, labeled with patient's name and hospital number and left sinus contents , is a specimen consisting of formalin. Tissue is not seen. Eosin is added to the specimen container. Upon filtering of the formalin, tissue is not identified. The specimen has been reviewed. The Pathologist has been notified. The filtered material is submitted in formalin in one cassette. LMP/SBS C: Received in formalin, labeled with the patient's name and hospital number and bilateral sinus microdebrider , are multiple, irregular segments of light wiggins cartilage and soft tissue aggregating to 3.4 x 3.0 x 1.7 cm. Groundskeeping Maintenance sections are submitted in 2 cassettes. LMP Normal [facility] Comment on above: Order Comment: Pre-o p diagnosis: Deviated nasal septum [J34.2] Chronic ethmoidal sinusitis [J32.2] Basic metabolic 2000 panelon 06-04-2023 Anion gap [Moles/Vol] 12 mmol/L 10 - 20 mmol/L [facility] Calcium [Mass/Vol] 8.7 mg/dL 8.6 - 10. 3 mg/dL [facility] Chloride [Moles/Vol] 107 mmol/L 98 - 107 mmol/L [facility] CO2 [Moles/Vol] 28 mmol/L 21 - 32 mmol/L [facility] Creatinine [Mass/Vol] 0.59 mg/dL 0.50 - 1.05 mg/dL [facility] eGFR - PINF [facility] Comment on above: Calculations of soraya mated GFR are performed using the 2020 CKD-EPI Study Refit equation without the race variable for the IDMS-Traceable creatinine methods. https://jasn.asnjournals.org/content//ASN.17092097 88 Glucose [Mass/Vol] 106 mg/dL High 74 - 99 mg/dL [facility] Interpretation and review of laboratory results Abnormal [facility] Potassium [Moles/Vol] 4.7 mmol/L 3.5 - 5.3 mmol/L [facility] Sodium [Moles/Vol] 142 mmol/L 136 - 145 mmol/L [facility] Urea nitrogen [Mass/Vol] 11 mg/dL 6 - 23 mg/dL [facility] Anion gap [Moles/Vol] 12 mmol/L Normal -20 [facility] Comment on above: Performed By: #### 2 4321-2 #### SOFÍA SANTOS ([id number]) [facility] ([facility]) [address] [place] [address] Calcium [Mass/Vol] 8.7 mg/dL Normal 8.6-10.3 [facility] Comment on above: Performed By: #### 2 4321-2 #### SOFÍA SANTOS ([id number]) [facility] ([facility]) [address] [place] [address] Chloride [Moles/Vol] 107 mmol/L Normal 98-107 [facility] Comment on above: Performed By: #### 2 4321-2 #### SOFÍA SANTOS ([id number]) [facility]) [address] [place] [address] CO2 [Moles/Vol] 28 mmol/L Normal 21-32 [facility] Comment on above: Performed By: #### 2 4321-2 #### SOFÍA SANTOS ([id number]) [facility]) [address] [place] [address] Creatinine [Mass/Vol] 0.59 mg/dL Normal 0.50-1.05 [facility] Comment on above: Performed By: #### 2 4321-2 #### SOFÍA SANTOS ([id number]) [facility] ([facility]) [address] [place] [address] GFR/1.73 sq M.predicted MDRD (S/P/Bld) [Vol rate/Area] mL/min/{1.73_m2} Normal >60 [facility] Comment on above: Result Comment: Calc ulations of estimated GFR are performed using the 2020 CKD-EPI Study Refit equation without the race variable for the IDMS-Traceable creatinine methods. https://jasn.asnjournals.org/content/early/ASN.29792444 88 Performed By: #### 2 4321-2 #### SOFÍA SANTOS ([id number]) [facility] ([facility]) [address] [place] [address] Glucose [Mass/Vol] 106 mg/dL High 74-99 [facility] Comment on above: Performed By: #### 2 4321-2 #### SOFÍA SANTOS ([id number]) [facility] ([facility]) [address] [place] [address] Potassium [Moles/Vol] 4.7 mmol/L Normal 3.5-5.3 [facility] Comment on above: Performed By: #### 2 4321-2 #### SOFÍA SANTOS ([id number]) [facility]) [address] [place] [address] Sodium [Moles/Vol] 142 mmol/L Normal 136-145 [facility] Comment on above: Performed By: #### 2 4321-2 #### SOFÍA SANTOS ([id number]) [facility] ([facility]) [address] [place] [address] Urea nitrogen [Mass/Vol] 11 mg/dL Normal 6-23 [facility] Comment on above: Performed By: #### 2 4321-2 #### SOFÍA SANTOS ([id number]) [facility] ([facility]) [address] [place] [address] CBC panel Auto (Bld)on 06-04 Erythrocyte distribution width (RBC) [Ratio] 13.0 % 11.5 - 14.5 % [facility] Hematocrit (Bld) [Volume fraction] 44.2 % 36.0 - 46.0 % [facility] Hemoglobin (Bld) [Mass/Vol] 14.1 g/dL 12.0 - 16.0 g/dL [facility] Interpretation and review of laboratory results Abnormal [facility] MCH (RBC) [Entitic mass] 29.4 pg 26.0 - 34.0 pg [facility] MCHC (RBC) [Mass/Vol] 31.9 g/dL Low 32.0 - 36.0 g/dL [facility] MCV (RBC) [Entitic vol] 92 fL 80 - 100 fL [facility] Nucleated RBC/100 WBC (Bld) [Ratio] 0.0 % [facility] Platelets (Bld) [#/Vol] 328 10*3/uL [facility] RBC (Bld) [#/Vol] 4.79 10*6/uL [facility] WBC (Bld) [#/Vol] 6.9 10*3/uL [facility] Erythrocyte distribution width (RBC) [Ratio] 13.0 % Normal 11.5-14.5 [facility] Comment on above: Performed By: #### 5 8410-2 #### SOFÍA SANTOS ([id number]) [facility] ([facility]) [address] [place] [address] Hematocrit (Bld) [Volume fraction] 44.2 % Normal 36.0-46.0 [facility] Comment on above: Performed By: #### 5 8410-2 #### SOFÍA SANTOS ([id number]) [facility]) [address] [place] [address] Hemoglobin (Bld) [Mass/Vol] 14.1 g/dL Normal 12.0-16.0 [facility] Comment on above: Performed By: #### 5 8410-2 #### SOFÍA SANTOS ([id number]) [facility]) [address] [place] [address]69 MCH (RBC) [Entitic mass] 29.4 pg Normal 26.0-34.0 [facility] Comment on above: Performed By: #### 5 8410-2 #### SOFÍA SANTOS ([id number]) [facility]) [address] [place] [address] MCHC (RBC) [Mass/Vol] 31.9 g/dL Low 32.0-36.0 [facility] Comment on above: Performed By: #### 5 8410-2 #### SOFÍA SANTOS ([id number]) [facility]) [address] [place] [address] MCV (RBC) [Entitic vol] 92 fL Normal 80-100 [facility] Comment on above: Performed By: #### 5 8410-2 #### SOFÍA SANTOS ([id number]) [facility]) [address] [place] [address] 75658 Nucleated RBC/100 WBC (Bld) [Ratio] 0.0 /100 WBCs Normal 0.0-0.0 [facility] Comment on above: Performed By: #### 5 8410-2 #### SOFÍA SANTOS ([id number]) [facility] (EMC) [address] [place] [address] 25339 Platelets (Bld) [#/Vol] 328 x10*3/uL Normal 150-450 [facility] Comment on above: Performed By: #### 5 8410-2 #### SOFÍA SANTOS ([id number]) [facility] ([facility]) [address] [place] [address] 83265 RBC (Bld) [#/Vol] 4.79 x10*6/uL Normal 4.00-5.20 [facility] Comment on above: Performed By: #### 5 8410-2 #### SOFÍA SANTOS ([id number]) [facility] ([facility]) [address] [place] [address] 15068 WBC (Bld) [#/Vol] 6.9 x10*3/uL Normal 4.4-11.3 [facility] Comment on above: Performed By: #### 5 8410-2 #### SOFÍA SANTOS ([id number]) [facility] ([facility]) [address] [place] [address] 04343 COMPREHENSIVE METABOLIC PANE Hitesh 05-06-2024 Albumin [Mass/Vol] 4.2 g/dL Normal 3.2-5.[address] [facility] Comment on above: Performed By: #### [place], [id number] #### [facility] ([id number]) [address] [place] [address] ALP [Catalytic activity/Vol] 97 U/L Normal 39-130 [facility] Comment on above: Performed By: #### Morena TORRES, 16022-2 #### [facility] ([id number]) [address] [place] [address] ALT [Catalytic activity/Vol] 29 U/L Normal 0-31 [facility] Comment on above: Performed By: #### Morena TORRES, 68591-7 #### [facility] ([id number]) [address], [address] [place] [address] Anion gap [Moles/Vol] 10 mmol/L Normal 5-15 [facility] Comment on above: Performed By: #### Morena TORRES, 46121-8 #### [facility] ([id number]) [address], [address] [place] [address] AST [Catalytic activity/Vol] 21 U/L Normal 0-41 [facility] Comment on above: Performed By: #### Morena TORRES, 56621-9 #### [facility] ([id number]) [address], [address] [place] [address] Bilirubin [Mass/Vol] 0.3 mg/dL Normal 0.3-1.2 [facility] Comment on above: Performed By: #### Morena TORRES, 96089-7 #### [facility] ([id number]) [address] [place] [address] Calcium [Mass/Vol] 10.9 mg/dL High 8.5-10.[address] [facility] Comment on above: Performed By: #### Morena TORRES, 27536-0 #### [facility] ([id number]) [address], [address] [place] [address] Chloride [Moles/Vol] 102 mmol/L Normal 98-109 [facility] Comment on above: Performed By: #### Morena TORRES, 25891-3 #### [facility] ([id number]) [address], [address] [place] [address] CO2 [Moles/Vol] 29 mmol/L Normal 22-32 [facility] Comment on above: Performed By: #### Morena TORRES, 73870-1 #### [facility] ([id number]) [address] [place] [address] Creatinine [Mass/Vol] 0.71 mg/dL Normal 0.40-1.00 [facility] Comment on above: Result Comment: METH OD TRACEABLE TO IDMS STANDARD Performed By: #### Morena TORRES, 46314-6 #### [facility] ([id number]) [address] [place] [address] eGFR (CKD-EPI) NON-RACE DEPENDENT >90 Normal >59 [facility] Comment on above: Result Comment: Reported eGFR is based on the CKD-EPI 2020 equation that does not use a race coefficient. Performed By: #### Morena TORRES, 62555-0 #### [facility] ([id number]) [address] [place] [address] Glucose [Mass/Vol] 103 mg/dL High 65-[address] [facility] Comment on above: Performed By: #### Morena TORRES, 87541-3 #### [facility] ([id number]) [address] [place] [address] Potassium [Moles/Vol] 3.7 mmol/L Normal 3.5-5.0 [facility] Comment on above: Performed By: #### Morena TORRES, 57114-2 #### [facility] ([id number]) [address] [address] [place] [address] Protein [Mass/Vol] 7.2 g/dL Normal 6.0-8.[address] [facility] Comment on above: Performed By: #### Morena TORRES, 08655-0 #### [facility] ([id number]) [address] [address] [address] [place] [address] Sodium [Moles/Vol] 141 mmol/L Normal 134-[address] [facility] Comment on above: Performed By: #### C MELISSA, 76755-0 #### [facility] ([id number]) [address] [place] [address] Urea nitrogen [Mass/Vol] 12 mg/dL Normal 5-27 [facility] Comment on above: Performed By: #### Morena TORRES, 95080-3 #### [facility] ([id number]) [address], [address] [place] [address] Comprehensive metabolic pane hitesh 05-06-2024 Albumin [Mass/Vol] 4.2 g/dL 3.2 - 5.3 g/dL [facility] ALP [Catalytic activity/Vol] 97 U/L 39 - 130 U/L [facility] ALT No additional P-5'-P [Catalytic activity/Vol] 29 U/L 0 - 31 U/L [facility] Anion gap [Moles/Vol] 10 mmol/L 5 - 15 mmol/L [facility] AST [Catalytic activity/Vol] 21 U/L 0 - 41 U/L [facility] Bilirubin [Mass/Vol] 0.3 mg/dL 0.3 - 1.2 mg/dL [facility] Calcium [Mass/Vol] 10.9 mg/dL High 8.5 - 10. 5 mg/dL [facility] Chloride [Moles/Vol] 102 mmol/L 98 - 109 mmol/L [facility] CO2 [Moles/Vol] 29 mmol/L 22 - 32 mmol/L [facility] Creatinine [Mass/Vol] 0.71 mg/dL 0.40 - 1.00 mg/dL [facility] Comment on above: METHOD TRACEABLE TO IDTN STANDARD eGFR (CKD-EPI)non-race dependent - PINF [facility] Comment on above: Reported eGFR is based on the CKD-EPI 2020 equation that does not use a race coefficient. Glucose [Mass/Vol] 103 mg/dL High 65 - 99 mg/dL [facility] Potassium [Moles/Vol] 3.7 mmol/L 3.5 - 5.0 mmol/L [facility] Protein [Mass/Vol] 7.2 g/dL 6.0 - 8.0 g/dL [facility] Sodium [Moles/Vol] 141 mmol/L 134 - 146 mmol/L [facility] Urea nitrogen [Mass/Vol] 12 mg/dL 5 - 27 mg/dL [facility] Lipid 1996 panelon 4 Cholesterol [Mass/Vol] 210 mg/dL High 150 - 200 mg/dL [facility] Cholesterol in HDL [Mass/Vol] 68 mg/dL 39 - PINF mg/dL [facility] Comment on above: HDL <40 mg/dL - High Risk HDL > or = 40mg/dL- Desirable HDL >60 mg/dL - Negative Risk Cholesterol in LDL [Mass/Vol] 118 mg/dL NINF - 130 mg/dL [facility] Comment on above: LDL <100 mg/dL - Desirable LDL >160 mg/dL - High Risk Cholesterol in VLDL [Mass/Vol] 24 mg/dL 0 - 30 mg/dL [facility] Cholesterol.total/C holesterol in HDL [Mass ratio] 3.1 {ratio} 1.0 - 5.0 [facility] Triglyceride [Mass/Vol] 118 mg/dL 27 - 150 mg/dL [facility] Cholesterol [Mass/Vol] 210 mg/dL High 150-200 [facility] Comment on above: Performed By: #### C MELISSA, 38766-0 #### [facility] ([id number]) [address] [place] [address] Cholesterol in HDL [Mass/Vol] 68 mg/dL Normal >39 [facility] Comment on above: Result Comment: HDL <40 mg/dL - High Risk HDL > or = 40mg/dL- Desirable HDL >60 mg/dL - Negative Risk Performed By: #### Morena TORRES, 35067-7 #### [facility] ([id number]) [address] [place] [address] Cholesterol in LDL [Mass/Vol] 118 mg/dL Normal <130 [facility] Comment on above: Result Comment: LDL <100 mg/dL - Desirable LDL >160 mg/dL - High Risk Performed By: #### Morena TORRES, 21046-3 #### [facility] ([id number]) [address] [place] [address] Cholesterol in VLDL [Mass/Vol] 24 mg/dL Normal 0-30 [facility] Comment on above: Performed By: #### Morena TORRES, 25146-5 #### [facility] ([id number]) [address] [place] [address] CHOLESTEROL:HDL 3.1 Normal 1.0-5.0 [facility] Comment on above: Performed By: #### Morena TORRES, 60283-6 #### [facility] ([id number]) [address] [place] [address] Triglyceride [Mass/Vol] 118 mg/dL Normal 27-150 [facility] Comment on above: Performed By: #### Morena TORRES, 01684-6 #### [facility] ([id number]) [address] [place] [address] No Panel Informationon 05-06 Interpretation and review of laboratory results Abnormal [facility] Urology Office/Clinic Noteon 03-11-2024 Urology Office/Clinic Note Urology Office/Clinic Note Chief Complaint Follow up to Cysto/stent removal done 02/19/24 HPI Staff Pt here today for follow up to Cysto/Stent removal done 02/19/24. KUB done 03/05/24. Previous DX: Ureteral stone. Dysuria: denies pain and burning Incomplete bladder emptying: denies Hematuria: denies visible blood Frequency: 8x a day Urgency: denies Nocturia: 2x a night Stream: denies hesitancy Leaking: denies Post void dripping: denies Wearing pads/ Depends: denies Urge incontinence: denies Stress incontinence: denies Incontinence without Sensory Awareness: denies Abdominal pain: denies Flank pain: denies Sexual complaints: _ History of Present Illness staff HPI reviewed and agree. Tests Reviewed: Reviewed UA, op note, KUB Review of Systems PHQ Score Initial Depression Screen Score: 0 SCORE no fever, chills, malaise, myalgia. no rash/lesions. no chest pain, palpitations, or SOB. no abdominal pain, nausea, vomiting. no unilateral calf swelling, redness, pain Physical Exam Vitals & Measurements T: 36 ?C(Temporal Artery) HR: 64(Peripheral) RR: 18 BP: 126/72 HT: 65 in HT: 165 cm WT: 79.3 kg WT: 174.46 lb BMI: 29.13 General: nontoxic, NAD Mouth: moist mucosa Lungs: normal respiratory effort Cardio: regular rate, good distal perfusion Abdomen: nondistended, no suprapubic distention or tenderness, no CVA tenderness Neurologic: Grossly normal Skin: No rashes or suspicious lesions Assessment/Plan BBS 10. 1. Kidney stone (N20.0: Calculus of kidney) S/p Cysto, R RGP, URS, stone basket, R stent placement by Dr. Vines 01/24/22 due to a 4 to 5 mm stone in the right distal ureter. ER 03/30/22 for L flank pain with nausea and vomiting. CT 03/30/22 2 mm calculus in the left distal ureter just proximal to the UVJ. IVP 04/23/22 neg. [facility] ER 02/02/24 due to R flank pain. CT AP wo con 02/02/24 - Obstructing 3 x 4 mm stone R distal ureter near UVJ resulting in moderate hydro. L nephrolithiasis. Urology consult 02/03/24. S/p cysto , R UD, R URS, R stent placement 02/03/24. S/p cysto, R stent placement 02/19/24. KUB 03/05/24 - 5 mm RUP stable. No R sided stones. Reviewed imaging with pt. Has been doing well since stone procedure. Discussed 50/50 chance of passing vs requiring surgical intervention for remaining stone. Pt elects to cont to monitor pt to keep appt for 02/2025. Shares she did a 24 hour urine and was only told to increase her fluid intake. Also showed to limit oxalates in diet. Educated pt on dietary modifications and fluid intake for stone prevention. Educational pamphlets provided. Has 1 yr f/u with KUB and NABIL scheduled for 03/08/25 or sooner if needed. Pt understands and agrees with plan. 2. Asymptomatic bacteriuria (R82.71: Bacteriuria) UA shows trace leuks. Asx. Follow-up With When Contact Information KADE RIOS, FLORINDA Pinto, URL [address] [place] [address] Additional Instructions: 1 yr f/u with KUB and NABIL scheduled for 03/08/25 Patient Education Kidney Stones Documentation recorded by the marcello Romero accurately reflects the services(s) I performed and decisions made by me. Authenticated by Florinda Patricia PA-C on 03/11/2024 13:24:31. I, Bianac Romero, personally scribed for REJI Lim on 03/11/2024 13:12:17. . Problem List/Past Medical History Ongoing Asymptomatic bacteriuria BMI 27.0-27.9,adult Graves disease Hypertension Hyperthyroidism Kidney stone Pulmonary embolus Sinusitis Historical Ureteral stone Procedure/Surgical History Cystoscopic removal of ureteric stent (02/19/2024), Cystoscopy (01/24/2022), Esophagogastroduodenoscopy and biopsy (01/08/2021), Colonoscopy (10/14/2019), Appendectomy, Cholecystectomy, History of knee surgery, Repair of diaphragmatic hiatal hernia by thoracoabdominal approach, Total hysterectomy. Medications alendronate 70 mg Tab aspirin 81 mg Oral EC Tab, 81 mg= 1 tab(s), Oral, Daily cyproheptadine 4 mg Tab, 4 mg= 1 tab(s), Oral, Bedtime losartan methimazole 10 mg Tab, 10 mg= [...] 10/11/2019 Tobacco - Denies Tobacco Use, 10/11/2019 Former smoker, quit more than 30 days ago Tobacco Use:. Never Smokeless Tobacco Use:. Cigarettes, 03/11/2024 Family History Diabetes mellitus type 2: Mother and Father. Leukemia: Father. Immunizations Vaccine Date Status Comments zoster vaccine, inactivated 08/06/2023 Recorded influenza virus vaccine, inactivated 06/19/2023 Recorded zoster vaccine, inactivated 04/11/2023 Recorded pneumococ (more content not included)... Normal [facility] Comment on above: Result Comment: Elec tronically Signed By: FLORINDA PATRICIA PA-C\.br\Date and Time Signed: 03/11/24 13:24 EDT\.br\Electronically Co-Signed By: Bianca Romero\.br\Date and Time Co-Signed: 03/11/24 13:12 EDT\.br\Electronically Co-Signed By: Bianca Romero\.br\Date and Time Co-Signed: 03/11/24 13:14 EDT RAD - MISCon 03-08-2024 RAD - MISC [id number] Normal [facility] T3 Freeon 02-11-2024 Free T3 [Mass/Vol] 2.8 pg/mL Invalid Interpretation Code 2.0-4.4 [facility] Comment on above: Result Comment: Perf ormed at: [facility] [address] [id number] PhD Kiki Anderson Performed By: #### 2 [id number] #### [facility] [address] [place] [address] CHEMISTRYOrdered By: SYSTEM SYSTEM on 02-10-2024 Albumin [Mass/Vol] 4.1 g/dL Normal 3.3 - 5.0 gm/dL [facility] Albumin/Globulin [Mass ratio] 1.2 {ratio} Normal 1.1 - 2.2 [facility] ALP [Catalytic activity/Vol] 77 [iU]/d Normal 21 - 98 Int._Unit/ L [facility] ALT No additional P-5'-P [Catalytic activity/Vol] 32 [iU]/d Normal 6 - 46 Int._Unit/ L [facility] AST [Catalytic activity/Vol] 18 [iU]/d Normal 5 - 43 Int._Unit/ L [facility] Bilirubin [Mass/Vol] 0.5 mg/dL Normal 0.0 - 1.1 mg/dL [facility] Bilirubin.direct [Mass/Vol] 0.0 mg/dL Normal 0.0 - 0.4 mg/dL [facility] Bilirubin.indirect [Mass or moles/Vol] 0.5 mg/dL Normal 0.1 - 0.9 mg/dL [facility] Free T4 [Mass/Vol] 1.05 ng/dL Normal 0.58 - 1.64 ng/dL [facility] Globulin (S) [Mass/Vol] 3.3 g/dL Normal 1.4 - 4.0 gm/dL [facility] Protein [Mass/Vol] 7.4 g/dL Normal 6.0 - 7.8 gm/dL [facility] TSH Qn 1.61 m[IU]/L Normal 0.34 - 5.60 mcIU/mL [facility] Free T4on 02-10-2024 Free T4 [Mass/Vol] 1.05 ng/dL Normal 0.58-1.64 [facility] Comment on above: Performed By: #### 2 [id number] #### [facility] [address] [place] [address] Hep Func Panelon 02-10-2024 Albumin [Mass/Vol] 4.1 g/dL Normal 3.3-5.0 [facility] Comment on above: Performed By: #### 2 [id number] #### [facility] [address] [place] [address] Albumin/Globulin (S) [Mass conc ratio] 1.2 Normal 1.1-2.2 [facility] Comment on above: Performed By: #### 2 [id number] #### [facility] [address] [place] [address] ALP [Catalytic activity/Vol] 77 Int._Unit/L Normal 21-98 [facility] Comment on above: Performed By: #### 2 [id number] #### [facility] [address] [place] [address] ALT No additional P-5'-P [Catalytic activity/Vol] 32 Int._Unit/L Normal 6-46 [facility] Comment on above: Performed By: #### 2 [id number] #### [facility] [address] [place] [address] AST [Catalytic activity/Vol] 18 Int._Unit/L Normal 5-43 [facility] Comment on above: Performed By: #### 2 [id number] #### [facility] [address] [place] [address] Bilirubin [Mass/Vol] 0.5 mg/dL Normal 0.0-1.1 [facility] Comment on above: Performed By: #### 2 [id number] #### [facility] [address] [place] [address] Bilirubin.direct [Mass/Vol] 0.0 mg/dL Normal 0.0-0.4 [facility] Comment on above: Performed By: #### 2 [id number] #### [facility] [address] [place] [address] Bilirubin.indirect [Mass or moles/Vol] 0.5 mg/dL Normal 0.1-0.9 [facility] Comment on above: Performed By: #### 2 [id number] #### [facility] [address] [place] [address] Globulin (S) [Mass/Vol] 3.3 g/dL Normal 1.4-4.0 [facility] Comment on above: Performed By: #### 2 [id number] #### [facility] [address] [place] [address] Protein [Mass/Vol] 7.4 g/dL Normal 6.0-7.8 [facility] Comment on above: Performed By: #### 2 [id number] #### [facility] [address] [place] [address] TSHon 02-10-2024 TSH Qn 1.61 m[IU]/L Normal 0.34-5.60 [facility] Comment on above: Performed By: #### 2 [id number] #### [facility] [address] [place] [address] CHEMISTRYOrdered By: SYSTEM SYSTEM on 11-18-2023 Albumin [...] 23.5 mg/dL Invalid Interpretation Code Remisol Chem URINALYSISOrdered By: Skyla ahn on 11-18-2023 Bilirubin [...] PM) Normal Negative [facility] UA Auto SS [place].plasma/Lith ium.RBC (Bld) [Mass ratio] 0-3 /HPF Normal [...] PM) Invalid Interpretation Code 1.005 - 1.030 [facility] [place]A Auto SS UA Spec Desc Clean Catch (11/18/23 2:51 PM) Normal [facility] [place] UA Auto SS Urobilinogen Qn (U) [id number] {Joni'U}/dL Normal 0.0 - 1.0 EU/dL [facility] [place] UA Auto SS WBC Auto Ql (U) Negative (11/18/23 2:51 PM) Normal Negative [facility] [place] UA Auto SS WBC LM.HPF (Urine sed) [#/Area] 0-5 /HPF Normal 0-5/HPF [facility] [place] UA Auto SS COVID Quick Testingon 2022 Result Negative [employer] Other T4on 12-17-2022 T4 [Mass/Vol] 10.10 ug/dL Normal 4.80-13.90 [facility] Comment on above: Performed By: #### N A, URIC, BUN, CA, CL, CO2, CREA, K #### [facility] [address] [address] [address] Florence Beltrán TSHon 12-17-2022 TSH 1.776 uIU/mL Normal 0.358-3.74 0 [facility] Comment on above: Performed By: #### N A, URIC, BUN, CA, CL, CO2, CREA, K #### [facility] [address] [address] [address] Florence Beltrán COVID/FLU RT-PCRon SARS-CoV-2 (COVID-19) RNA KAMRYN+probe Ql (Unsp spec) Negative [employer] Other COVID/FLU RT-PCR Negative [facility] [employer] Other Quick Strepon 11-20-2022 S. pyogenes Org specific cx Ql (Throat) Negative [employer] Other Quick Strep [employer] Other CHEMISTRYOrdered By: SYSTEM SYSTEM on 11-19-2022 [...] Normal >=59mL/min /1.73 m2 [facility] S GFR/1.73 sq M.predicted among non-blacks MDRD (S/P/Bld) [Vol rate/Area] mL/min/1.73 m2 Normal >=59mL/min /1.73 m2 [facility] S Globulin (S) [Mass/Vol] 3.5 g/dL Normal 1.4 - 4.0 gm/dL [facility] Remisol Glucose [Mass/Vol] 114 mg/dL Normal 55 - 199 mg/dL [facility] Remisol Potassium [Moles/Vol] 4.3 mmol/L Normal 3.5 - 5.3 mmol/L [facility] Remisol Protein [Mass/Vol] 7.3 g/dL Normal 6.0 - 7.8 gm/dL [facility] Remisol Sodium [Moles/Vol] 136 mmol/L Normal 135 - 145 mmol/L [facility] [place] Remisol Urea nitrogen [Mass/Vol] 13 mg/dL Normal 5 - 21 mg/dL [facility] [place] Remisol Urea nitrogen/Creatinine [Mass ratio] 19 mg/mg Normal 10 - 20 [facility] [place] Remisol CITRATE URINE 24HRon 09-14- 022 Citric Acid, U, 24hr 819 mg/24 hr Normal 320-1240 [facility] Comment on above: Result Comment: This test was developed and its performance characteristics determined by [facility]. It has not been cleared or approved by the Food and Drug Administration. Performed By: #### C ITRATU #### [facility] [address] [address] [address] Florence Beltrán Citric Acid, Urine 482 mg/L Normal Undefined [facility] Comment on above: Performed By: #### C ITRATU #### [facility] [address] [address] [address] Florence Beltrán MAGNESIUM 24HR URINEon 09-14 Magnesium 24hr Urine 93.5 mg/24 hr Normal 12.0-293.0 [facility] Comment on above: Result Comment: No t otal volume submitted. Unable to calculate 24 hour result. Performed By: #### N A, URIC, BUN, CA, CL, CO2, CREA, K #### [facility] [address] [address] [address] Florence Beltrán Magnesium UR 5.5 mg/dL Normal Not Estab. [facility] Comment on above: Performed By: #### N A, URIC, BUN, CA, CL, CO2, CREA, K #### [facility] [address] [address] [address] Florence Beltrán OXALATE 24HR URINEon 022 Oxalates, Urine 19 mg/L Normal Undefined [facility] Comment on above: Performed By: #### O X24HR #### [facility] [address] [address] [address] Florence Beltrán Oxalates, Urine 24hr 32 mg/24 hr Critically high [facility] Comment on above: Performed By: #### O X24HR #### [facility] [address] [address] [address] Florence Beltrán PHOSPHORUS 24HR URINEon 08-17 Phosphorus, Urine 41.7 mg/dL Normal Not Estab. [facility] Comment on above: Performed By: #### N A, URIC, BUN, CA, CL, CO2, CREA, K #### [facility] [address] [place] [address] Dr. Florence Beltrán Phosphorus, Urine 24hr 709 mg/24 hr Normal 261-1078 [facility] Comment on above: Result Comment: No t otal volume submitted. Unable to calculate 24 hour result. Performed By: #### N A, URIC, BUN, CA, CL, CO2, CREA, K #### [facility] [address] [place] [address] Dr. Florence Beltrán URIC ACID 24 HR URINEon 08-17 Uric Acid, Urine 40.6 mg/dL Normal Not Estab. [facility] Comment on above: Performed By: #### N A, URIC, BUN, CA, CL, CO2, CREA, K #### [facility] [address] [place] [address] Dr. Florence Beltrán Uric Acid, Urine 24hr 690.2 mg/24 hr Normal 173.7-902. 1 [facility] Comment on above: Result Comment: No t otal volume submitted. Unable to calculate 24 hour result. Performed By: #### N A, URIC, BUN, CA, CL, CO2, CREA, K #### [facility] [address] [place] [address] Dr. Florence Beltrán PTH INTACTon 09-12-2022 PTH, Intact 21 pg/mL Normal 15-65 [facility] Comment on above: Performed By: #### N A, URIC, BUN, CA, CL, CO2, CREA, K #### [facility] [address] [place] [address] Dr. Florence Beltrán BUNon 09-11-2022 Urea nitrogen [Mass/Vol] 13.0 mg/dL Normal 7.0-18.0 [facility] Comment on above: Performed By: #### N A, URIC, BUN, CA, CL, CO2, CREA, K #### [facility] [address] [place] [address] Dr. Florence Beltrán CALCIUMon 09-11-2022 Calcium [Mass/Vol] 9.0 mg/dL Normal 8.5-10.1 [facility] Comment on above: Performed By: #### N A, URIC, BUN, CA, CL, CO2, CREA, K #### [facility] [address] [place] [address] Dr. Florence Beltrán CALCIUM 24 HR URINEon 2021 CALC, 24 HR UR 180.2 mg/24 hr Normal 100.0-300. 0 [facility] Comment on above: Performed By: #### N A, URIC, BUN, CA, CL, CO2, CREA, K #### [facility] [address] [place] [address] Dr. Florence Beltrán UR CALCIUM 10.6 mg/dL Normal 5.1-21.0 [facility] Comment on above: Performed By: #### N A, URIC, BUN, CA, CL, CO2, CREA, K #### [facility] [address] [place] [address] Dr. Florence Beltrán UR TOT VOL 1700 ml/24 HR Normal [facility] Comment on above: Performed By: #### N A, URIC, BUN, CA, CL, CO2, CREA, K #### [facility] [address] [place] [address] Dr. Florence Beltrán CHLORIDEon 09-11-2022 Chloride [Moles/Vol] 103 mmol/L Normal 98-107 [facility] Comment on above: Performed By: #### N A, URIC, BUN, CA, CL, CO2, CREA, K #### [facility] [address] [place] [address] Dr. Florence Beltrán CO2on 09-11-2022 CO2 [Moles/Vol] 28.4 mmol/L Normal 21.0-32.[address] [facility] Comment on above: Performed By: #### N A, URIC, BUN, CA, CL, CO2, CREA, K #### [facility] [address] [place] [address] Dr. Flroence OCHOA 24 HR URINEon CREA, 24 HR UR 844.05 mg/24 hr Normal 800.00-1,8 00.00 [facility] Comment on above: Performed By: #### N A, URIC, BUN, CA, CL, CO2, CREA, K #### [facility] [address] [place] [address] Dr. Florence Beltrán URINE CREAT 49.65 mg/dL Normal 20.00-300. 00 [facility] Comment on above: Performed By: #### N A, URIC, BUN, CA, CL, CO2, CREA, K #### [facility] [address] [place] [address] Dr. Florence Beltrán CREATININEon 09-11-2022 Creatinine [Mass/Vol] 0.58 mg/dL Normal 0.55-1.02 [facility] Comment on above: Performed By: #### N A, URIC, BUN, CA, CL, CO2, CREA, K #### [facility] [address] [place] [address] Dr. Florence Beltrán EGFR-AF BAHRAINI >60 Normal >=[address] [facility] Comment on above: Performed By: #### N A, URIC, BUN, CA, CL, CO2, CREA, K #### [facility] [address] [place] [address] Dr. Florence Beltrán EGFR-NON AF BAHRAINI >60 Normal >=60 [facility] Comment on above: Performed By: #### N A, URIC, BUN, CA, CL, CO2, CREA, K #### [facility] [address] [place] [address] Dr. Florence Beltrán NAon 09-11-2022 Sodium [Moles/Vol] 140 mmol/L Normal 136-145 [facility] Comment on above: Performed By: #### N A, URIC, BUN, CA, CL, CO2, CREA, K #### [facility] [address] [place] [address] Dr. Florence Beltrán POTASSIUMon 09-11-2022 Potassium [Moles/Vol] 4.1 mmol/L Normal 3.5-5.1 [facility] Comment on above: Performed By: #### N A, URIC, BUN, CA, CL, CO2, CREA, K #### [facility] [address] [place] [address] Dr. Florence Beltrán SODIUM 24 HR URINEon 022 NA, 24 HR UR 213 mmol/24 hr Normal 40-220 [facility] Comment on above: Performed By: #### N A, URIC, BUN, CA, CL, CO2, CREA, K #### [facility] [address] [place] [address] Dr. Florence Beltrán Sodium (U) [Moles/Vol] 125 mmol/L Critically high 30-90 [facility] Comment on above: Performed By: #### N A, URIC, BUN, CA, CL, CO2, CREA, K #### [facility] [address] [place] [address] Dr. Florence Beltrán URIC ACID SERUMon 09-11-2022 Urate [Mass/Vol] 4.4 mg/dL Normal 2.6-6.[address] [facility] Comment on above: Performed By: #### N A, URIC, BUN, CA, CL, CO2, CREA, K #### [facility] [address] [place] [address] Dr. Florence Beltrán BUNon 04-23-2022 Urea nitrogen [Mass/Vol] 14.0 mg/dL Normal 7.0-18.0 [facility] Comment on above: Performed By: #### N A, URIC, BUN, CA, CL, CO2, CREA, K #### [facility] [address] [place] [address] Dr. Florence Beltrán CREATININEon 04-23-2022 Creatinine [Mass/Vol] 0.68 mg/dL Normal 0.55-1.02 [facility] Comment on above: Performed By: #### N A, URIC, BUN, CA, CL, CO2, CREA, K #### [facility] [address] [place], [place] [address] Dr. Florence Beltrán EGFR-AF BAHRAINI >60 Normal >=[address] [facility] Comment on above: Performed By: #### N A, URIC, BUN, CA, CL, CO2, CREA, K #### [facility] [address] [place], [place] [address] Dr. Florence Beltrán EGFR-NON AF BAHRAINI >60 Normal >=60 [facility] Comment on above: Performed By: #### N A, URIC, BUN, CA, CL, CO2, CREA, K #### [facility] [address] [place], [place] [address] Dr. Florence Beltrán XR IVPon 04-23-2022 XR IVP EXAMINATION: XR IVP HISTORY: Kidney stone COMPARISON: No relevant comparison available. TECHNIQUE: After obtaining patient consent a nitro man image was obtained followed by injection of [...] by: ADRY LANGLEY Date: 2022-04-23 10:13 Normal [facility] CHEMISTRYOrdered By: SYSTEM SYSTEM on 03-30-2022 [...] rate/Area] mL/min/1.73 m2 Normal >=59mL/min /1.73 m2 [facility] [place] S GFR/1.73 sq M.predicted among non-blacks MDRD (S/P/Bld) [Vol rate/Area] mL/min/1.73 m2 Normal >=59mL/min /1.73 m2 [facility] Chem S Globulin (S) [Mass/Vol] 3.7 g/dL [...] 7.6 E9/L High 2.0 - 7.5 E9/L [facility] HemeAutoSS HEMATOLOGYOrdered By: Randall Burns on 03-30-2022 [...] 5.0 E12/L Normal 4.3 - 5.9 E12/L [facility] [...] Interpretation Code Negative [facility] UA Auto SS [place].plasma/Lith ium.RBC (Bld) [Mass ratio] 4-20 /HPF Normal 0-3/HPF [facility] UA Auto SS Nitrite Ql (U) Negative (03/30/22 10:55 PM) Normal Negative [facility] UA Auto SS pH (U) 5.5 *NA* (03/30/22 10:55 PM) Invalid Interpretation Code 5.0 - 9.0 [facility] UA Auto SS Protein (U) [Mass/Vol] 1+ *ABN* (03/30/22 10:55 PM) Invalid Interpretation Code Negative [facility] UA Auto SS Specific gravity (U) [Rel density] >=1.030 *NA* (03/30/22 10:55 PM) Invalid Interpretation Code 1.005 - 1.030 [facility] UA Auto SS UA Spec Desc Clean Catch (03/30/22 10:55 PM) Normal [facility] [place] UA Auto SS Urobilinogen Qn (U) [id number] {Joni'U}/dL Normal 0.0 - 1.0 EU/dL [facility] UA Auto SS WBC Auto Ql (U) 2+ *ABN* (03/30/22 10:55 PM) Invalid Interpretation Code Negative [facility] UA Auto SS WBC LM.HPF (Urine sed) [#/Area] 6-15 /HPF Invalid Interpretation Code 0-5/HPF [facility] [place] U[facility] Auto SS CBC AUTO DIFFon 02-27-2022 BASO # 0.1 103/ul Normal 0.0-0.1 [facility] Comment on above: Performed By: #### N A, URIC, BUN, CA, CL, CO2, CREA, K #### [facility] [address] [place] [address] Dr. Florence Beltrán Basophils/100 WBC (Bld) 0.6 % Normal 0.2-2.0 [facility] Comment on above: Performed By: #### N A, URIC, BUN, CA, CL, CO2, CREA, K #### [facility] [address] [place] [address] Dr. Florence Beltrán EO # 0.3 103/ul Normal 0.0-0.7 [facility] Comment on above: Performed By: #### N A, URIC, BUN, CA, CL, CO2, CREA, K #### [facility] [address] [place] [address] Dr. Florence Beltrán Eosinophils/100 WBC (Bld) 4.4 % Normal 0.9-7.0 [facility] Comment on above: Performed By: #### N A, URIC, BUN, CA, CL, CO2, CREA, K #### [facility] [address] [place] [address] Dr. Florence Beltrán Erythrocyte distribution width (RBC) [Ratio] 13.0 % Normal 11.0-15.0 [facility] Comment on above: Performed By: #### N A, URIC, BUN, CA, CL, CO2, CREA, K #### [facility] [address] [place] [address] Dr. Florence Beltrán Hematocrit (Bld) [Volume fraction] 42.3 % Normal 36.0-48.0 [facility] Comment on above: Performed By: #### N A, URIC, BUN, CA, CL, CO2, CREA, K #### [facility] [address] [place] [address] Dr. Florence Beltrán Hemoglobin (Bld) [Mass/Vol] 13.9 g/dL Normal 12.0-16.0 [facility] Comment on above: Performed By: #### N A, URIC, BUN, CA, CL, CO2, CREA, K #### [facility] [address] [place] [address] Dr. Florence Beltrán IG # 0.03 10e3/ul Normal 0.00-0.03 [facility] Comment on above: Performed By: #### N A, URIC, BUN, CA, CL, CO2, CREA, K #### [facility] [address] [place] [address] Dr. Florence Beltrán IG % 0.4 % Normal 0.0-0.5 [facility] Comment on above: Performed By: #### N A, URIC, BUN, CA, CL, CO2, CREA, K #### [facility] [address] [place] [address] Dr. Florence Beltrán LYMPH # 1.4 103/ul Normal 1.2-3.8 [facility] Comment on above: Performed By: #### N A, URIC, BUN, CA, CL, CO2, CREA, K #### [facility] [address] [place] [address] Dr. Florence Beltrán Lymphocytes/100 WBC (Bld) 17.9 % Critically low 20.5-60.0 [facility] Comment on above: Performed By: #### N A, URIC, BUN, CA, CL, CO2, CREA, K #### [facility] [address] [place] [address] Dr. Florence Beltrán MANUAL DIFF REQ NO Normal [facility] Comment on above: Performed By: #### N A, URIC, BUN, CA, CL, CO2, CREA, K #### [facility] [address] [place] [address] Dr. Florence Beltrán MCH (RBC) [Entitic mass] 29.6 pg Normal 26.7-34.0 [facility] Comment on above: Performed By: #### N A, URIC, BUN, CA, CL, CO2, CREA, K #### [facility] [address] [place] [address] Dr. Florence Beltrán MCHC (RBC) [Mass/Vol] 32.9 g/dL Normal 29.9-35.2 [facility] Comment on above: Performed By: #### N A, URIC, BUN, CA, CL, CO2, CREA, K #### [facility] [address] [place] [address] Dr. Florence Beltrán MCV (RBC) [Entitic vol] 90.0 fL Normal 81.0-99.0 [facility] Comment on above: Performed By: #### N A, URIC, BUN, CA, CL, CO2, CREA, K #### [facility] [address] [place] [address] Dr. Florence Beltrán MONO # 0.6 103/ul Normal 0.3-0.8 [facility] Comment on above: Performed By: #### N A, URIC, BUN, CA, CL, CO2, CREA, K #### [facility] [address] [place] [address] Dr. Florence Beltrán Monocytes/100 WBC (Bld) 7.8 % Normal 1.7-12.0 [facility] Comment on above: Performed By: #### N A, URIC, BUN, CA, CL, CO2, CREA, K #### [facility] [address] [place] [address] [address] Florence Beltrán NEUT # 5.4 103/ul Normal 1.4-6.5 [facility] Comment on above: Performed By: #### N A, URIC, BUN, CA, CL, CO2, CREA, K #### [facility] [address] [place] [address] Dr. Florence Beltrán Neutrophils/100 WBC (Bld) 68.9 % Normal 43.0-75.0 [facility] Comment on above: Performed By: #### N A, URIC, BUN, CA, CL, CO2, CREA, K #### [facility] [address] [place] [address] Dr. Florence Beltrán Platelet mean volume (Bld) [Entitic vol] 9.6 fL Normal 9.5-13.5 [facility] Comment on above: Performed By: #### N A, URIC, BUN, CA, CL, CO2, CREA, K #### [facility] [address] [place] [address] Dr. Florence Beltrán PLT 371 103/ul Normal 150-450 [facility] Comment on above: Performed By: #### N A, URIC, BUN, CA, CL, CO2, CREA, K #### [facility] [address] [place] [address] Dr. Florence Beltrán RBC 4.70 106/ul Normal 4.20-5.40 [facility] Comment on above: Performed By: #### N A, URIC, BUN, CA, CL, CO2, CREA, K #### [facility] [address] [place] [address] Dr. Florence Beltrán WBC 7.8 103/ul Normal 4.0-11.0 [facility] Comment on above: Performed By: #### N A, URIC, BUN, CA, CL, CO2, CREA, K #### [facility] [address] [place] [address] [address] Florence Beltrán CRPon 02-27-2022 CRP 1.1 mg/dL Critically high <=1.0 [facility] Comment on above: Performed By: #### N A, URIC, BUN, CA, CL, CO2, CREA, K #### [facility] [address] [place] [address] [address] Florence Beltrán SED RATE WESTERGRENon 2021 SED RATE 44 mm/hr Critically high <=30 [facility] Comment on above: Performed By: #### N A, URIC, BUN, CA, CL, CO2, CREA, K #### [facility] [address] [place] [address] [address] Florence Beltrán URIC ACID SERUMon 02-27-2022 Urate [Mass/Vol] 5.5 mg/dL Normal 2.6-6.[address] [facility] Comment on above: Performed By: #### N A, URIC, BUN, CA, CL, CO2, CREA, K #### [facility] [address] [place] [address] [address] Florence Beltrán CHEMISTRYOrdered By: SYSTEM SYSTEM on 01-24-2022 Albumin [Mass/Vol] 3.8 g/dL Normal 3.3 - 5.0 gm/dL [facility] Albumin/Globulin [Mass ratio] 1.2 {ratio} Normal [...] [Mass/Vol] mg/dL Normal 0.1 - 0.4 mg/dL [facility] Bilirubin.indirect [Mass or moles/Vol] Unable to Calculate mg/dL Invalid Interpretation Code 0.1 - 0.9 mg/dL [facility] Calcium [Mass/Vol] 8.8 mg/dL Low 8.9 - 11. 1 mg/dL [facility] Chloride [Moles/Vol] 103 mmol/L Normal 101 - 111 mmol/L [facility] CO2 [Moles/Vol] 24 mmol/L Normal 21 - 31 mmol/L [facility] Creatinine [Mass/Vol] 0.7 mg/dL Normal 0.5 - 1.3 mg/dL [facility] GFR/1.73 sq M.predicted among blacks MDRD (S/P/Bld) [Vol rate/Area] mL/min/1.73 m2 Normal >=59mL/min /1.73 m2 [facility] [place] Chem S GFR/1.73 sq M.predicted among non-blacks MDRD (S/P/Bld) [Vol rate/Area] mL/min/1.73 m2 Normal >=59mL/min /1.73 m2 [facility] [place] Chem S Globulin (S) [Mass/Vol] 3.3 g/dL Normal 1.4 - 4.0 gm/dL [facility] Glucose [Mass/Vol] 124 mg/dL Normal 55 - 199 mg/dL [facility] Lipase [Catalytic activity/Vol] 20 U/L Normal 13 - 58 unit/L [facility] Potassium [Moles/Vol] 3.9 mmol/L Normal 3.5 - 5.3 mmol/L [facility] Protein [Mass/Vol] 7.1 g/dL Normal 6.0 - 7.8 gm/dL [facility] Sodium [Moles/Vol] 135 mmol/L Normal 135 - 145 mmol/L [facility] Urea nitrogen [Mass/Vol] 21 mg/dL Normal 5 - 21 mg/dL [facility] Urea nitrogen/Creatinine [Mass ratio] 30 mg/mg [...] AM) Normal Negative [facility] UA Auto SS [place].plasma/Lith ium.RBC (Bld) [Mass ratio] 4-20 /HPF Normal 0-3/HPF [facility] UA Auto SS Mucus Ql (Urine sed) 1+ (01/24/22 6:50 AM) Normal [facility] UA Auto SS Nitrite Ql (U) Negative (01/24/22 6:50 AM) Normal Negative [facility] UA Auto SS pH (U) 7.0 *NA* (01/24/22 6:50 AM) Invalid Interpretation Code 5.0 - 9.0 [facility] [place] UA Auto SS Protein (U) [Mass/Vol] Negative (01/24/22 6:50 AM) Normal Negative [facility] [place] UA Auto SS Specific gravity (U) [Rel density] 1.020 *NA* (01/24/22 6:50 AM) Invalid Interpretation Code 1.005 - 1.030 [facility] [place] UA Auto SS UA Spec Desc Clean Catch (01/24/22 6:50 AM) Normal [facility] [place] UA Auto SS Urobilinogen Qn (U) 0.6306737 {Joni'U}/dL Normal 0.0 - 1.0 EU/dL [facility] [place] UA Auto SS WBC Auto Ql (U) Negative (01/24/22 6:50 AM) Normal Negative [facility] [place] UA Auto SS WBC LM.HPF (Urine sed) [#/Area] 0-5 /HPF Normal 0-5/HPF [facility] [place] UA Auto SS Urinalysis - AUTOMATEDon Appearance (U) cloudy [employer] Other Bilirubin Ql (U) moderate [employer] Other Color (U) amauri [employer] Other Glucose Ql (U) Negative [employer] Other Hemoglobin Ql (U) large [employer] Other Ketones Ql (U) trace [employer] Other Leukocyte esterase Test strip Ql (U) trace [employer] Other Nitrite Ql (U) Negative [employer] Other pH (U) 5.0 [pH] [employer] Other Protein Ql (U) 100 [employer] Other Specific gravity (U) [Rel density] >1.030 [employer] Other Urobilinogen (U) [Mass/Vol] 1.0 mg/dL [employer] Other Urinalysis - AUTOMATED [employer] Other Urine Cultureon 01-14-2022 Bacteria identified Cx Nom (U) [employer] Other TSH+FREE T4on 01-11-2022 Free T4 [Mass/Vol] 1.3 ng/dL Normal 0.8-1.8 [facility] Comment on above: Performed By: #### 5 [id number] #### [facility] [address], [address] [place] [id number] [employer] Specialist: Geremias Toney MD TSH Qn 1.12 m[IU]/L Normal 0.40-4.50 [facility] Comment on above: Performed By: #### 5 [id number] #### [facility] [address], [address] [place], [place] [id number] [employer] Specialist: Geremias Toney MD CHEMISTRYOrdered By: SYSTEM SYSTEM on 12-07-2021 Phosphate [Mass/Vol] 4.2 mg/dL Normal 1.9 - 4.6 mg/dL [facility]isol Albumin [Mass/Vol] 3.7 g/dL Normal 3.3 [...] m2 [facility] S Globulin (S) [Mass/Vol] 3.2 g/dL Normal 1.4 - 4.0 gm/dL [facility] Glucose [Mass/Vol] 97 mg/dL Normal 55 - 199 mg/dL [facility] Potassium [Moles/Vol] 4.6 mmol/L Normal 3.5 - 5.3 mmol/L [facility] Protein [Mass/Vol] 6.9 g/dL Normal 6.0 - 7.8 gm/dL [facility] Sodium [Moles/Vol] 139 mmol/L Normal 135 - 145 mmol/L [facility] Triglyceride [Mass/Vol] 66 mg/dL Normal <=149mg/dL [facility] TSH Qn 1.21 m[IU]/L Normal 0.34 - 5.60 mcIU/mL [facility] Urea nitrogen [Mass/Vol] 12 mg/dL Normal 5 - 21 mg/dL [facility] Urea nitrogen/Creatinine [Mass ratio] 20 mg/mg Normal 10 - 20 [facility] COMPREHENSIVE METABOLIC PANE Hitesh 08-31-2021 Albumin [Mass/Vol] 4.2 g/dL Normal 3.6-5.1 [facility] Comment on above: Performed By: #### 1 [id number] #### [facility] of [address], [address] [place] [address] [employer] Specialist: Geremias Toney MD Albumin/Globulin [Mass ratio] 1.8 {ratio} Normal 1.0-2.5 [facility] Comment on above: Performed By: #### 1 [id number] #### [facility] of [address], [address] [place] [address] [employer] Specialist: Geremias Toney MD ALP [Catalytic activity/Vol] 132 U/L Normal 37-153 [facility] Comment on above: Performed By: #### 1 0231 #### [facility] of [place] [address] [employer] Security Specialist: Geremias Toney MD ALT [Catalytic activity/Vol] 102 U/L High 6-29 [facility] Comment on above: Performed By: #### 1 0231 #### [facility] of [place] [address] [employer] Security Specialist: Geremias Toney MD AST [Catalytic activity/Vol] 54 U/L High 10-35 [facility] Comment on above: Performed By: #### 1 0231 #### [facility] of [place] [address] [employer] Specialist: Geremias Toney MD Bilirubin [Mass/Vol] 0.6 mg/dL Normal 0.2-1.2 [facility] Comment on above: Performed By: #### 1 0231 #### [facility] of [place] [address] [employer] Security Specialist: Geremias Toney MD BUN/CREATININE RATIO NOT APPLICABLE Normal 6-22 [facility] Comment on above: Performed By: #### 1 0231 #### [facility] of [place] [address] [employer] Security Specialist: Geremias Toney MD Calcium [Mass/Vol] 9.3 mg/dL Normal 8.6-10.4 [facility] Comment on above: Performed By: #### 1 0231 #### [facility] [place] [address] [employer] Security Specialist: Geremias Toney MD Chloride [Moles/Vol] 108 mmol/L Normal 98-110 [facility] Comment on above: Performed By: #### 1 0231 #### [facility] [place] [address] [employer] Security Specialist: Geremias Toney MD CO2 [Moles/Vol] 28 mmol/L Normal 20-32 [facility] Comment on above: Performed By: #### 1 1 #### [facility] [place] [address] [employer] Security Specialist: Geremias Toney MD Creatinine [Mass/Vol] 0.62 mg/dL Normal 0.50-1.05 [facility] Comment on above: Result Comment: For patients >49 years of age, the reference limit for Creatinine is approximately 13% higher for people identified as -Cypriot. Performed By: #### 1 1 #### [facility] [place] [address] [employer] Specialist: Geremias Toney MD eGFR NON-AFR. BAHRAINI 99 mL/min/1.73m2 Normal > OR = 60 [facility] Comment on above: Performed By: #### 1 0231 #### [facility] [place] [address] [employer] Security Specialist: Geremias Toney MD GFR/1.73 sq M.predicted among blacks MDRD (S/P/Bld) [Vol rate/Area] 114 mL/min/{1.73_m2} Normal > OR = 60 [facility] Comment on above: Performed By: #### 1 0231 #### [facility] [place] [address] [employer] Security Specialist: Geremias Toney MD Globulin (S) [Mass/Vol] 2.4 g/dL Normal 1.9-3.7 [facility] Comment on above: Performed By: #### 1 0231 #### [facility] of [place] [address] [employer] Security Specialist: Geremias Toney MD Glucose [Mass/Vol] 97 mg/dL Normal 65-99 [facility] Comment on above: Result Comment: Fasting reference interval Performed By: #### 1 0231 #### [facility] of [address], [address] [place] [address] [employer] Security Specialist: Geremias Toney MD Potassium [Moles/Vol] 3.7 mmol/L Normal 3.5-5.3 [facility] Comment on above: Performed By: #### 1 0231 #### [facility] [place] [address] [employer] Security Specialist: Geremias Toney MD Protein [Mass/Vol] 6.6 g/dL Normal 6.1-8.1 [facility] Comment on above: Performed By: #### 1 0231 #### [facility] of [place] [address] Mobile Security Specialist: Geremias Toney MD Sodium [Moles/Vol] 143 mmol/L Normal 135-146 [facility] Comment on above: Performed By: #### 1 0231 #### [facility] of [place] [address] [employer] Security Specialist: Geremias Toney MD Urea nitrogen [Mass/Vol] 14 mg/dL Normal 7-25 [facility] Comment on above: Performed By: #### 1 0231 #### [facility] of [place] [address] [employer] Security Specialist: Geremias Toney MD COVID Quick Testingon 2020 Result Negative [employer] Other BASIC METABOLIC PANEL W/O CA on 02-09-2021 BUN/CREATININE RATIO NOT APPLICABLE Normal 6-22 [facility] Comment on above: Performed By: #### 5 [id number], [id number] #### [facility] of [address], [address] [place] [address] [employer] Specialist: Geremias Toney MD Chloride [Moles/Vol] 103 mmol/L Normal 98-110 [facility] Comment on above: Performed By: #### 5 [id number], [id number] #### [facility] of [address], [address] [place] [address] [employer] Specialist: Geremias Toney MD CO2 [Moles/Vol] 29 mmol/L Normal 20-32 [facility] Comment on above: Performed By: #### 5 [id number], [id number] #### [facility] of [address], [address] [place] [address] [employer] Specialist: Geremias Toney MD Creatinine [Mass/Vol] 0.64 mg/dL Normal 0.50-1.05 [facility] Comment on above: Result Comment: For patients >49 years of age, the reference limit for Creatinine is approximately 13% higher for people identified as -Cypriot. Performed By: #### 5 [id number], [id number] #### [facility] of [address], [address] [place] [address] [employer] Specialist: Geremias Toney MD eGFR NON-AFR. BAHRAINI 98 mL/min/1.73m2 Normal > OR = 60 [facility] Comment on above: Performed By: #### 5 [id number], [id number] #### [facility] of [address], [address] [place] [address] [employer] Specialist: Geremias Toney MD GFR/1.73 sq M.predicted among blacks MDRD (S/P/Bld) [Vol rate/Area] 114 mL/min/{1.73_m2} Normal > OR = 60 [facility] Comment on above: Performed By: #### 5 [id number], [id number] #### [facility] of [address], [address] [place] [address] [employer] Specialist: Geremias Toney MD Glucose [Mass/Vol] 90 mg/dL Normal 65-99 [facility] Comment on above: Result Comment: Fasting reference interval Performed By: #### [id number], [id number] #### [facility] of [address], [address] [place] [address] Mobile Security Specialist: Geremias Toney MD Potassium [Moles/Vol] 4.4 mmol/L Normal 3.5-5.3 [facility] Comment on above: Performed By: #### [id number], [id number] #### [facility] of [address], [address] [place] [address] Mobile Security Specialist: Geremias Toney MD Sodium [Moles/Vol] 143 mmol/L Normal 135-146 [facility] Comment on above: Performed By: #### [id number], [id number] #### [facility] of [place] [address] Mobile Security Specialist: Geremias Toney MD Urea nitrogen [Mass/Vol] 17 mg/dL Normal 7-25 [facility] Comment on above: Performed By: #### [id number], [id number] #### [facility] of [place] [address] Mobile Security Specialist: Geremias Toney MD TSH+FREE T4 02-09-2021 Free T4 [Mass/Vol] 1.1 ng/dL Normal 0.8-1.8 [facility] Comment on above: Performed By: #### [id number], [id number] #### [facility] of [place] [address] Mobile Security Specialist: Geremias Toney MD TSH Qn 0.59 m[IU]/L Normal 0.40-4.50 [facility] Comment on above: Performed By: #### 5 [id number], [id number] #### [facility] of [place] [address] Mobile Security Specialist: Geremias Toney MD Vital Signs Date Time Vital Sign Value Performing Clinician Facility 01-27-2025 11:25-0400 Body height 165.1 cm Barbara FRANKLINGENERAL PRACTITIONER Work Phone: [facility] 01-27-2025 11:25-0400 Body mass index (BMI) [Ratio] 30.79 kg/m2 Barbara Peters [address] SWEEPER-GENERAL PRACTITIONER Work Phone: [facility] 01-27-2025 11:25-0400 Body temperature 97.9 [degF] Barbara Peters [address] SWEEPER-GENERAL PRACTITIONER Work Phone: [facility] 01-27-2025 11:25-0400 Body weight 83.[address] SWEEPER-GENERAL PRACTITIONER Work Phone: [facility] 01-27-2025 11:25-0400 Diastolic blood pressure 78 mm[Hg] Barbara [address] SWEEPER-GENERAL PRACTITIONER Work Phone: [facility] 01-27-2025 11:25-0400 Heart rate 85 /min Barbara [address] SWEEPER-GENERAL PRACTITIONER Work Phone: [facility] 01-27-2025 11:25-0400 Respiratory rate 18 /min Barbara [address] SWEEPER-GENERAL PRACTITIONER Work Phone: [facility] 01-27-2025 11:25-0400 SaO2% (BldA) [Mass fraction] 96 % Barbara Peters [address] SWEEPER-GENERAL PRACTITIONER Work Phone: [facility] 01-27-2025 11:25-0400 Systolic blood pressure 128 mm[Hg] Barbara Peters [address] SWEEPER-GENERAL PRACTITIONER Work Phone: [facility] 01-26-2025 15:03-0400 Body height 165.[address] SWEEPER-GENERAL PRACTITIONER Work Phone: [facility] 01-26-2025 15:03-0400 Body mass index (BMI) [Ratio] 30.95 kg/m2 Joanna [address] SWEEPER-GENERAL PRACTITIONER Work Phone: [facility] 01-26-2025 15:03-0400 Body weight 84.[address] SWEEPER-GENERAL PRACTITIONER Work Phone: [facility] 01-26-2025 15:03-0400 Diastolic blood pressure 86 mm[Hg] Joanna Palac[address] SWEEPER-GENERAL PRACTITIONER Work Phone: [facility] 01-26-2025 15:03-0400 Heart rate 90 /min Joanna [address] SWEEPER-GENERAL PRACTITIONER Work Phone: [facility] 01-26-2025 15:03-0400 SaO2% (BldA) [Mass fraction] 97 % Joanna Palac[address] SWEEPER-GENERAL PRACTITIONER Work Phone: [facility] 01-26-2025 15:03-0400 Systolic blood pressure 153 mm[Hg] Joanna Palac[address] SWEEPER-GENERAL PRACTITIONER Work Phone: [facility] 01-13-2025 11:27-0400 Body height 165.1 cm Radha Kahn PA Work Phone: [facility] 01-13-2025 11:27-0400 Body mass index (BMI) [Ratio] 31.62 kg/m2 Radha Kahn PA Work Phone: [facility] 01-13-2025 11:27-0400 Body weight 86.18 kg Radha Kahn PA Work Phone: [facility] 01-13-2025 11:27-0400 Diastolic blood pressure 78 mm[Hg] Radha Kahn PA Work Phone: [facility] 01-13-2025 11:27-0400 Heart rate 87 /min Radha Kahn PA Work Phone: [facility] 01-13-2025 11:27-0400 Respiratory rate 16 /min Radha Kahn PA Work Phone: [facility] 01-13-2025 11:27-0400 SaO2% (BldA) [Mass fraction] 98 % Radha Kahn PA Work Phone: [facility] 01-13-2025 11:27-0400 Systolic blood pressure 142 mm[Hg] Radha Kahn PA Work Phone: [facility] 12-30-2024 11:46-0400 Body height 165.[address] SWEEPER-GENERAL PRACTITIONER Work Phone: [facility] 12-30-2024 11:46-0400 Body mass index (BMI) [Ratio] 31.62 kg/m2 Barbara Peters [address] SWEEPER-GENERAL PRACTITIONER Work Phone: [facility] 12-30-2024 11:46-0400 Body temperature 98.1 [degF] Barbara Peters [address] SWEEPER-GENERAL PRACTITIONER Work Phone: [facility] 12-30-2024 11:46-0400 Body weight 86.[address] SWEEPER-GENERAL PRACTITIONER Work Phone: [facility] 12-30-2024 11:46-0400 Diastolic blood pressure 82 mm[Hg] Barbara [address] SWEEPER-GENERAL PRACTITIONER Work Phone: [facility] 12-30-2024 11:46-0400 Heart rate 84 /min Barbaraliz Peters [address] SWEEPER-GENERAL PRACTITIONER Work Phone: [facility] 12-30-2024 11:46-0400 Respiratory rate 18 /min Barbara [address] SWEEPER-GENERAL PRACTITIONER Work Phone: [facility] 12-30-2024 11:46-0400 SaO2% (BldA) [Mass fraction] 97 % Barbara Peters [address] SWEEPER-GENERAL PRACTITIONER Work Phone: [facility] 12-30-2024 11:46-0400 Systolic blood pressure 130 mm[Hg] Barbara Peters [address] SWEEPER-GENERAL PRACTITIONER Work Phone: [facility] 12-08-2024 09:50-0400 Body height 165.1 cm Toni Bansal MD Work Phone: [facility] 12-08-2024 09:50-0400 Body mass index (BMI) [Ratio] 32.08 kg/m2 Toni Bansal MD Work Phone: [facility] 12-08-2024 09:50-0400 Body weight 87.45 kg Toni Bansal MD Work Phone: [facility] 10-19-2024 10:11-0500 Body height 165.1 cm Pmh 1 [facility] 10-19-2024 10:11-0500 Body mass index (BMI) [Ratio] 32.12 kg/m2 Pmh 1 [facility] 10-19-2024 10:11-0500 Body weight 87.54 kg Pmh 1 [facility] 08-11-2024 09:41-0500 Body height 165.1 cm Toni Bansal MD Work Phone: [facility] 08-11-2024 09:41-0500 Body mass index (BMI) [Ratio] 32.22 kg/m2 Toni Bansal MD Work Phone: [facility] 08-11-2024 09:41-0500 Body weight 87.82 kg Toni Bansal MD Work Phone: [facility] 07-28-2024 14:46-0500 Body height 165.1 cm Pmh 1 [facility] 07-28-2024 14:46-0500 Body mass index (BMI) [Ratio] 30.62 kg/m2 Pmh 1 [facility] 07-28-2024 14:46-0500 Body weight 83.46 kg Pmh 1 [facility] 06-30-2024 10:00-0400 Body height 165.1 cm Toni Bansal MD Work Phone: [facility] 06-30-2024 10:00-0400 Body mass index (BMI) [Ratio] 31.14 kg/m2 Toni Bansal MD Work Phone: [facility] 06-30-2024 10:00-0400 Body weight 84.87 kg Toni Bansal MD Work Phone: [facility] 06-24-2024 13:46-0400 Body height 165.4 cm Barbara SAMSON Work Phone: [facility] 06-24-2024 13:46-0400 Body mass index (BMI) [Ratio] 30.64 kg/m2 Barbara Peters APRN-GENERAL PRACTITIONER Work Phone: [facility] 06-24-2024 13:46-0400 Body temperature 98.01 [degF] Barbara Peters [address] SWEEPER-GENERAL PRACTITIONER Work Phone: [facility] 06-24-2024 13:46-0400 Body weight 83.[address] SWEEPER-GENERAL PRACTITIONER Work Phone: [facility] 06-24-2024 13:46-0400 Diastolic blood pressure 78 mm[Hg] Barbara Peters [address] SWEEPER-GENERAL PRACTITIONER Work Phone: [facility] 06-24-2024 13:46-0400 Heart rate 76 /min Barbara [address] SWEEPER-GENERAL PRACTITIONER Work Phone: [facility] 06-24-2024 13:46-0400 SaO2% (BldA) [Mass fraction] 96 % Barbara Peters [address] SWEEPER-GENERAL PRACTITIONER Work Phone: [facility] 06-24-2024 13:46-0400 Systolic blood pressure 120 mm[Hg] Barbara Peters [address] SWEEPER-GENERAL PRACTITIONER Work Phone: [facility] 06-17-2024 13:30-0400 Body temperature 97.5 [degF] Toni Bansal MD Work Phone: [facility] 06-17-2024 13:30-0400 Diastolic blood pressure 56 mm[Hg] Toni Bansal MD Work Phone: [facility] 06-17-2024 13:30-0400 Respiratory rate 16 /min Toni Bansal MD Work Phone: [facility] 06-17-2024 13:30-0400 SaO2% (BldA) [Mass fraction] 96 % Toni Bansal MD Work Phone: [facility] 06-17-2024 13:30-0400 Systolic blood pressure 112 mm[Hg] Toni Bansal MD Work Phone: [facility] 06-17-2024 13:14-0400 Heart rate 86 /min Toni Bansal MD Work Phone: [facility] 06-17-2024 06:57-0400 Body height 165.1 cm Toni Bansal MD Work Phone: [facility] 06-17-2024 06:57-0400 Body mass index (BMI) [Ratio] 31.59 kg/m2 Toni Bansal MD Work Phone: [facility] 06-17-2024 06:57-0400 Body weight 86.1 kg Toni Bansal MD Work Phone: [facility] 05-06-2024 13:10-0400 Body height 165.[address] SWEEPER-GENERAL PRACTITIONER Work Phone: [facility] 05-06-2024 13:10-0400 Body mass index (BMI) [Ratio] 31.24 kg/m2 Barbara Fran [address] SWEEPER-GENERAL PRACTITIONER Work Phone[facility] 05-06-2024 13:10-0400 Body temperature 98.1 [degF] Barbara Fran [address] SWEEPER-GENERAL PRACTITIONER Work Phone[facility] 05-06-2024 13:10-0400 Body weight 85.[address] SWEEPER-GENERAL PRACTITIONER Work Phone[facility] 05-06-2024 13:10-0400 Diastolic blood pressure 68 mm[Hg] Barbara Fran [address] SWEEPER-GENERAL PRACTITIONER Work Phone[facility] 05-06-2024 13:10-0400 Heart rate 100 /min Barbara Fran [address] SWEEPER-GENERAL PRACTITIONER Work Phone[facility] 05-06-2024 13:10-0400 Respiratory rate 18 /min Barbara [address] SWEEPER-GENERAL PRACTITIONER Work Phone: [facility] 05-06-2024 13:10-0400 SaO2% (BldA) [Mass fraction] 97 % Barbara Peters [address] SWEEPER-GENERAL PRACTITIONER Work Phone: [facility] 05-06-2024 13:10-0400 Systolic blood pressure 110 mm[Hg] Barbara Peters [address] SWEEPER-GENERAL PRACTITIONER Work Phone: [facility] 04-01-2024 11:42-0400 Body height 165.[address] SWEEPER-GENERAL PRACTITIONER Work Phone: [facility] 04-01-2024 11:42-0400 Body mass index (BMI) [Ratio] 31.7 kg/m2 Barbara Peters [address] SWEEPER-GENERAL PRACTITIONER Work Phone: [facility] 04-01-2024 11:42-0400 Body temperature 97.2 [degF] Barbara Peters [address] SWEEPER-GENERAL PRACTITIONER Work Phone: [facility] 04-01-2024 11:42-0400 Body weight 86.[address] SWEEPER-GENERAL PRACTITIONER Work Phone: [facility] 04-01-2024 11:42-0400 Diastolic blood pressure 70 mm[Hg] Barbara [address] SWEEPER-GENERAL PRACTITIONER Work Phone: [facility] 04-01-2024 11:42-0400 Heart rate 77 /min Barbara [address] SWEEPER-GENERAL PRACTITIONER Work Phone: [facility] 04-01-2024 11:42-0400 Respiratory rate 18 /min Barbara [address] SWEEPER-GENERAL PRACTITIONER Work Phone: [facility] 04-01-2024 11:42-0400 SaO2% (BldA) [Mass fraction] 98 % Barbara Peters [address] SWEEPER-GENERAL PRACTITIONER Work Phone: [facility] 04-01-2024 11:42-0400 Systolic blood pressure 120 mm[Hg] Barbaraliz Peters [address] SWEEPER-GENERAL PRACTITIONER Work Phone: [facility] 03-11-2024 12:37-0400 Blood Pressure Location FLORINDA PATRICIA [facility] 03-11-2024 12:37-0400 Body temperature 96.8 [degF] FLORINDA KADE [facility] 03-11-2024 12:37-0400 Diastolic blood pressure 72 mm[Hg] FLORINDA KADE [facility] 03-11-2024 12:37-0400 Heart rate 64 /min FLORINDA KADE [facility] 03-11-2024 12:37-0400 Respiratory rate 18 /min FLORINDA KADE [facility] 03-11-2024 12:37-0400 Systolic blood pressure 126 mm[Hg] FLORINDA KADE [facility] 03-05-2024 08:40-0400 Body height 165.[address] SWEEPER-GENERAL PRACTITIONER Work Phone: [facility] 03-05-2024 08:40-0400 Body mass index (BMI) [Ratio] 33.06 kg/m2 Barbara Peters [address] SWEEPER-GENERAL PRACTITIONER Work Phone: [facility] 03-05-2024 08:40-0400 Body temperature 97.81 [degF] Barbara Peters [address] SWEEPER-GENERAL PRACTITIONER Work Phone: [facility] 03-05-2024 08:40-0400 Body weight 90.[address] SWEEPER-GENERAL PRACTITIONER Work Phone: [facility] 03-05-2024 08:40-0400 Diastolic blood pressure 68 mm[Hg] Barbara Peters [address] SWEEPER-GENERAL PRACTITIONER Work Phone: [facility] 03-05-2024 08:40-0400 Heart rate 71 /min Barbaraliz Peters [address] SWEEPER-GENERAL PRACTITIONER Work Phone: [facility] 03-05-2024 08:40-0400 Respiratory rate 20 /min Barbaraliz Peters [address] SWEEPER-GENERAL PRACTITIONER Work Phone: [facility] 03-05-2024 08:40-0400 SaO2% (BldA) [Mass fraction] 97 % Barbara Peters [address] SWEEPER-GENERAL PRACTITIONER Work Phone: [facility] 03-05-2024 08:40-0400 Systolic blood pressure 110 mm[Hg] Barbara [address] SWEEPER-GENERAL PRACTITIONER Work Phone: [facility] 01-28-2024 15:53-0400 Body height 165.[address] SWEEPER-GENERAL PRACTITIONER Work Phone: [facility] 01-28-2024 15:53-0400 Body mass index (BMI) [Ratio] 33.56 kg/m2 Barbara Peters [address] SWEEPER-GENERAL PRACTITIONER Work Phone: [facility] 01-28-2024 15:53-0400 Body temperature 98.01 [degF] Barbara [address] SWEEPER-GENERAL PRACTITIONER Work Phone: [facility] 01-28-2024 15:53-0400 Body weight 91.[address] SWEEPER-GENERAL PRACTITIONER Work Phone: [facility] 01-28-2024 15:53-0400 Diastolic blood pressure 82 mm[Hg] Barbara [address] SWEEPER-GENERAL PRACTITIONER Work Phone: [facility] 01-28-2024 15:53-0400 Heart rate 91 /min Barbaraliz Peters [address] SWEEPER-GENERAL PRACTITIONER Work Phone: [facility] 01-28-2024 15:53-0400 Respiratory rate 20 /min Barbaraliz Peters [address] SWEEPER-GENERAL PRACTITIONER Work Phone: [facility] 01-28-2024 15:53-0400 SaO2% (BldA) [Mass fraction] 96 % Barbara Peters APRN-GENERAL PRACTITIONER Work Phone: [facility] 01-28-2024 15:53-0400 Systolic blood pressure 152 mm[Hg] Barbara Peters APRN-GENERAL PRACTITIONER Work Phone: [facility] 12-29-2023 15:08-0400 Body height 165.1 cm [facility] 12-29-2023 15:08-0400 Body mass index (BMI) [Ratio] 33.6 kg/m2 [facility] 12-29-2023 15:08-0400 Body weight 91.62 kg [facility] 12-29-2023 15:08-0400 Diastolic blood pressure 96 mm[Hg] [facility] 12-29-2023 15:08-0400 Heart rate 81 /min [facility] 12-29-2023 15:08-0400 SaO2% (BldA) [Mass fraction] 92 % [facility] 12-29-2023 15:08-0400 Systolic blood pressure 157 mm[Hg] [facility] 11-25-2023 13:43-0400 Blood Pressure Location FLORINDA PATRICIA [facility] 11-25-2023 13:43-0400 Body temperature 98.96 [degF] FLORINDA PATRICIA [facility] 11-25-2023 13:43-0400 Diastolic blood pressure 86 mm[Hg] FLORINDA PATRICIA [facility] 11-25-2023 13:43-0400 Heart rate 82 /min FLORINDA PATRICIA [facility] 11-25-2023 13:43-0400 Systolic blood pressure 132 mm[Hg] FLORINDA PATRICIA [facility] 06-15-2023 10:10-0400 Body height 165.1 cm Maria Isabel Leonie Other [employer] Other 06-15-2023 10:10-0400 Body mass index (BMI) [Ratio] 29.95 kg/m2 Maria Isabel Leonie Other [employer] Other 06-15-2023 10:10-0400 Body temperature 98.3 [degF] Maria Isabel Leonie Other [employer] Other 06-15-2023 10:10-0400 Body weight 81.65 kg Maria Isabel Leonie Other [employer] Other 06-15-2023 10:10-0400 Diastolic blood pressure 75 mm[Hg] Maria Isabel Leonie Other [employer] Other 06-15-2023 10:10-0400 SaO2% (BldA) [Mass fraction] 97 % Maria Isabel Leonie Other [employer] Other 06-15-2023 10:10-0400 Systolic blood pressure 140 mm[Hg] Maria Isabel Leonie Other [employer] Other 06-02-2023 10:05-0400 Body height 165.1 cm Maria Isabel Leonie Other [employer] Other 06-02-2023 10:05-0400 Body mass index (BMI) [Ratio] 30.78 kg/m2 Maria Isabel Leonie Other [employer] Other 06-02-2023 10:05-0400 Body temperature 97.8 [degF] Maria Isabel Hadley Other [employer] Other 06-02-2023 10:05-0400 Body weight 83.92 kg Maria Isabel Hadley Other [employer] Other 06-02-2023 10:05-0400 Diastolic blood pressure 77 mm[Hg] Maria Isabel Hadley Other [employer] Other 06-02-2023 10:05-0400 Respiratory rate 18 /min Maria Isabel Hadley Other [employer] Other 06-02-2023 10:05-0400 SaO2% (BldA) [Mass fraction] 96 % Maria Isabel Hadley Other [employer] Other 06-02-2023 10:05-0400 Systolic blood pressure 131 mm[Hg] Maria Isabel Hadley Other [employer] Other 12-23-2022 14:30-0400 Body height 165.1 cm Caitlyn Long Other [employer] Other 12-23-2022 14:30-0400 Body mass index (BMI) [Ratio] 31.7 kg/m2 Caitlyn Long Other [employer] Other 12-23-2022 14:30-0400 Body weight 86.41 kg Caitlyn Wilkinsonalissa Other [employer] Other 12-23-2022 14:30-0400 Diastolic blood pressure 77 mm[Hg] Caitlyn Wilkinsonalissa Other [employer] Other 12-23-2022 14:30-0400 SaO2% (BldA) [Mass fraction] 97 % Caitlyn Long Other [employer] Other 12-23-2022 14:30-0400 Systolic blood pressure 138 mm[Hg] Caitlyn Wilkinsonalissa Other [employer] Other 11-25-2022 09:52-0400 Body temperature 98.6 [degF] Mariusz Lackeye [facility] 11-25-2022 09:52-0400 Diastolic blood pressure 68 mm[Hg] Mariusz Lackeye [facility] 11-25-2022 09:52-0400 Heart rate 89 /min Mariusz Lackeye [facility] 11-25-2022 09:52-0400 Respiratory rate 18 /min Mariusz Lackeye [facility] 11-25-2022 09:52-0400 SaO2% (BldA) [Mass fraction] 93 % Mariusz Ro [facility] 11-25-2022 09:52-0400 Systolic blood pressure 138 mm[Hg] Mariusz Ro [facility] 11-20-2022 09:15-0500 Body height 165.1 cm Maria Isabel Hadley Other [employer] Other 11-20-2022 09:15-0500 Body mass index (BMI) [Ratio] 31.45 kg/m2 Maria Isabel Hadley Other [employer] Other 11-20-2022 09:15-0500 Body temperature 98.5 [degF] Maria Isabel Hadley Other [employer] Other 11-20-2022 09:15-0500 Body weight 85.73 kg Maria Isabel Hadley Other [employer] Other 11-20-2022 09:15-0500 Respiratory rate 18 /min Maria Isabel Hadley Other [employer] Other 11-20-2022 09:15-0500 SaO2% (BldA) [Mass fraction] 96 % Maria Isabel Hadley Other [employer] Other 11-19-2022 11:09-0500 Blood Pressure Location FLORINDA SERRATORY [facility] 11-19-2022 11:09-0500 Diastolic blood pressure 78 mm[Hg] FLORINDA AKDE [facility] 11-19-2022 11:09-0500 Heart rate 80 /min FLORINDA KADE [facility] 11-19-2022 11:09-0500 Systolic blood pressure 126 mm[Hg] FLORINDA KADE [facility] 06-24-2022 14:30-0400 Body height 165.1 cm Caitlyn Long Other [employer] Other 06-24-2022 14:30-0400 Body mass index (BMI) [Ratio] 29.93 kg/m2 Caitlyn Long Other [employer] Other 06-24-2022 14:30-0400 Body temperature 96.8 [degF] Caitlyn Long Other [employer] Other 06-24-2022 14:30-0400 Body weight 81.6 kg Caitlyn Long Other [employer] Other 06-24-2022 14:30-0400 Diastolic blood pressure 84 mm[Hg] Caitlyn Long Other [employer] Other 06-24-2022 14:30-0400 SaO2% (BldA) [Mass fraction] 97 % Caitlyn Long Other [employer] Other 06-24-2022 14:30-0400 Systolic blood pressure 128 mm[Hg] Caitlyn Long Other [employer] Other 04-19-2022 08:53-0400 Blood Pressure Location Justin YI [facility] 04-19-2022 08:53-0400 Diastolic blood pressure 83 mm[Hg] Justin YI [facility] 04-19-2022 08:53-0400 Heart rate 74 /min Justin YI [facility] 04-19-2022 08:53-0400 Respiratory rate 16 /min Justin YI [facility] 04-19-2022 08:53-0400 Systolic blood pressure 143 mm[Hg] Justin YI [facility] 03-31-2022 14:00-0400 Body temperature 98.42 [degF] Astrit Hajdari [facility] 03-31-2022 14:00-0400 Diastolic blood pressure 60 mm[Hg] [facility] 03-31-2022 14:00-0400 Heart rate 68 /min [facility] 03-31-2022 14:00-0400 Mean blood pressure 82 mm[Hg] [facility] 03-31-2022 14:00-0400 Respiratory rate 11 /min [facility] 03-31-2022 14:00-0400 SaO2% (BldA) [Mass fraction] 97 % [facility] 03-31-2022 14:00-0400 Systolic blood pressure 126 mm[Hg] [facility] 03-31-2022 01:00-0400 Body temperature 98.6 [degF] [facility] 03-31-2022 01:00-0400 Diastolic blood pressure 67 mm[Hg] [facility] 03-31-2022 01:00-0400 Mean blood pressure 86 mm[Hg] [facility] 03-31-2022 01:00-0400 Respiratory rate 11 /min [facility] 03-31-2022 01:00-0400 SaO2% (BldA) [Mass fraction] 97 % [facility] 03-31-2022 01:00-0400 Systolic blood pressure 125 mm[Hg] [facility] 03-31-2022 00:00-0400 Body temperature 98.24 [degF] [facility] 03-31-2022 00:00-0400 Diastolic blood pressure 76 mm[Hg] [facility] 03-31-2022 00:00-0400 Heart rate 78 /min [facility] 03-31-2022 00:00-0400 Mean blood pressure 97 mm[Hg] [facility] 03-31-2022 00:00-0400 Respiratory rate 12 /min [facility] 03-31-2022 00:00-0400 Systolic blood pressure 140 mm[Hg] [facility] 03-30-2022 22:55-0400 Blood Pressure Location [facility] 03-30-2022 21:24-0400 Heart rate 70 /min [facility] 03-30-2022 21:24-0400 Respiratory rate 18 /min [facility] 01-24-2022 18:00-0400 Hourly Rounding [facility] 01-24-2022 18:00-0400 Promise to Return [facility] 01-24-2022 15:52-0400 Body temperature 98.06 [degF] [facility] 01-24-2022 15:52-0400 Diastolic blood pressure 80 mm[Hg] [facility] 01-24-2022 15:52-0400 Heart rate 68 /min [facility] 01-24-2022 15:52-0400 Mean blood pressure 98 mm[Hg] [facility] 01-24-2022 15:52-0400 SaO2% (BldA) [Mass fraction] 94 % [facility] 01-24-2022 15:52-0400 Systolic blood pressure 133 mm[Hg] [facility] 01-24-2022 15:39-0400 SaO2% (BldA) [Mass fraction] 95 % [facility] 01-24-2022 14:54-0400 Body temperature 97.88 [degF] [facility] 01-24-2022 14:54-0400 Diastolic blood pressure 77 mm[Hg] [facility] 01-24-2022 14:54-0400 Heart rate 64 /min [facility] 01-24-2022 14:54-0400 Mean blood pressure 95 mm[Hg] [facility] 01-24-2022 14:54-0400 Respiratory rate 15 /min [facility] 01-24-2022 14:54-0400 SaO2% (BldA) [Mass fraction] 95 % [facility] 01-24-2022 14:54-0400 Systolic blood pressure 132 mm[Hg] [facility] 01-24-2022 14:45-0400 Diastolic blood pressure 82 mm[Hg] [facility] 01-24-2022 14:45-0400 Heart rate 65 /min [facility] 01-24-2022 14:45-0400 Mean blood pressure 101 mm[Hg] [facility] 01-24-2022 14:45-0400 Respiratory rate 13 /min [facility] 01-24-2022 14:45-0400 Systolic blood pressure 140 mm[Hg] [facility] 01-24-2022 14:40-0400 Body temperature 97.16 [degF] [facility] 01-24-2022 14:40-0400 Mean blood pressure 98 mm[Hg] [facility] 01-24-2022 14:40-0400 Respiratory rate 16 /min [facility] 01-24-2022 14:29-0400 Body temperature 96.44 [degF] [facility] Comment on above: Result Comment: warm blanket applied 01-24-2022 11:00-0400 Heart rate 74 /min [facility] 01-24-2022 09:39-0400 Heart rate 69 /min [facility] 01-24-2022 08:30-0400 Heart rate 68 /min [facility] 01-24-2022 06:07-0400 Body temperature 97.7 [degF] [facility] 01-14-2022 12:45-0400 Body height 165.1 cm Maria Isabel Leonie Other [employer] Other 01-14-2022 12:45-0400 Body mass index (BMI) [Ratio] 30.78 kg/m2 Maria Isabel Leonie Other [employer] Other 01-14-2022 12:45-0400 Body temperature 97.3 [degF] Maria Isabel Leonie Other [employer] Other 01-14-2022 12:45-0400 Body weight 83.92 kg Maria Isabel Leonie Other [employer] Other 01-14-2022 12:45-0400 Diastolic blood pressure 83 mm[Hg] Maria Isabel Leonie Other [employer] Other 01-14-2022 12:45-0400 Respiratory rate 18 /min Maria Isabel Leonie Other [employer] Other 01-14-2022 12:45-0400 SaO2% (BldA) [Mass fraction] 98 % Maria Isabel Leonie Other [employer] Other 01-14-2022 12:45-0400 Systolic blood pressure 149 mm[Hg] Maria Isabel Leonie Other [employer] Other 07-12-2021 11:30-0400 Body height 165.1 cm Kristina Donald Other [employer] Other 07-12-2021 11:30-0400 Body mass index (BMI) [Ratio] 28.79 kg/m2 Kristina Donald Other [employer] Other 07-12-2021 11:30-0400 Body temperature 97.4 [degF] Kristina Donald Other [employer] Other 07-12-2021 11:30-0400 Body weight 78.47 kg Kristina Donald Other [employer] Other 07-12-2021 11:30-0400 Respiratory rate 18 /min Kristina Donald Other [employer] Other 07-12-2021 11:30-0400 SaO2% (BldA) [Mass fraction] 98 % Kristina Donald Other [employer] Other Encounters Encounter Date Encounter Type Care Provider Facility Start: 03-08-2025 ambulatory BLANCA PATRICIA Facility:[facility] Start: 02-06-2025 End: 02-08-[address] [facility] [address] SWEEPER-GENERAL PRACTITIONER Work Phone: [facility] Comment on above: Essential (primary) hypertension Start: 01-27-2025 End: 01-27-2025 Transitional care manage srvc 14 day discharge [facility] [address] SWEEPER-GENERAL PRACTITIONER Work Phone: [facility] Comment on above: 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 Start: 01-13-2025 End: 01-13-2025 Office outpatient new 30 minutes Radha S Nirobin PA Work Phone: [facility] Comment on above: Thoracic spondylosis without myelopathy (Primary Dx) Start: 01-13-2025 End: 01-13-2025 ambulatory RADHA KAHN [facility] Start: 12-31-2024 End: 12-31-[address] [facility] Start: 12-30-2024 End: 12-30-2024 Office outpatient visit 15 minutes Barbara Jackson [address] SWEEPER-GENERAL PRACTITIONER Work Phone: [facility] Comment on above: Mid back pain on lef t side (Primary Dx); Neck pain Start: 12-30-2024 End: 12-30-2024 ambulatory [facility] Start: 12-13-2024 End: 12-13-2024 ambulatory Thom España [facility] Work Phone: Start: 12-13-2024 End: 12-13-2024 Departed Referred Thom España DO [facility] Start: 12-08-2024 End: 12-08-2024 Office outpatient visit 15 minutes Toni Bansal MD Work Phone: [facility] Comment on above: Chronic ethmoidal si nusitis (Primary Dx); Decreased sense of smell; Nasal polyp Start: 12-08-2024 End: 12-08-2024 ambulatory TONI BANSAL [facility] Start: 12-04-2024 End: 12-07-2024 [address] Barbara Renetta [address] SWEEPER-GENERAL PRACTITIONER Work Phone: [facility] Comment on above: Migraine without aur a, not intractable, without status migrainosus Start: 12-02-2024 End: 12-02-[address] [facility] Start: 11-22-2024 End: 11-22-2024 Orders Only Barbara L Fran [address] SWEEPER-GENERAL PRACTITIONER Work Phone: [facility] Comment on above: Encounter for screen ing mammogram for malignant neoplasm of breast (Primary Dx) Start: 10-20-2024 End: 10-20-2024 Evaluation and management of inpatient MARIUSZ SIMON [facility] Start: 10-19-2024 End: 10-19-2024 ambulatory h Pat Phone Call Provider 1 [facility] - Pre Admit Start: 10-19-2024 End: 10-19-[address] [facility] Start: 09-09-2024 End: 09-13-2024 Refill Barbara Renetta [address] SWEEPER-GENERAL PRACTITIONER Work Phone: [facility] Comment on above: Allergic rhinitis, u nspecified Start: 08-11-2024 End: 08-11-2024 Postop follow up visit related to original px Toni Bansal MD Work Phone: [facility] Comment on above: Chronic ethmoidal si nusitis (Primary Dx); Decreased sense of smell Start: 08-11-2024 End: 08-11-2024 ambulatory TONI BANSAL [facility] Ambulatory Start: 08-03-2024 End: 08-04-2024 Telephone [address] Fatuma Herr [facility] Start: 08-02-2024 End: 08-02-2024 Telephone encounter Annetta Trujillo MD Work Phone: [facility] Start: 07-28-2024 End: 08-01-2024 Clinical Support [facility] 1 [facility] Comment on above: LILO (obstructive sle ep apnea) Start: 07-07-2024 End: 07-07-2024 Telephone encounter Barbara Peters [address] SWEEPER-GENERAL PRACTITIONER Work Phone: [facility] Comment on above: Sleep Lab ([facility]) Start: 06-30-2024 End: 06-30-2024 Postop follow up visit related to original lucinda Bansal MD Work Phone: [facility] Comment on above: Chronic ethmoidal si nusitis (Primary Dx); Nasal polyp; Nasal congestion with rhinorrhea Start: 06-30-2024 End: 06-30-2024 ambulatory [facility] Start: 06-29-2024 End: 07-02-2024 Telephone encounter Barbara Peters [address] [employer] Work Phone: [facility] Start: 06-24-2024 End: 06-24-2024 Office outpatient visit [address] [employer] Work Phone: [facility] Comment on above: LILO (obstructive sle ep apnea) (Primary Dx); Influenza vaccination administered at current visit; Class 1 obesity due to excess calories with serious comorbidity and body mass index (BMI) of 33.0 to 33.9 in adult Start: 06-24-2024 End: 06-24-2024 ambulatory [facility] Start: 06-23-2024 End: 06-23-2024 Postop follow up visit related to original px Toni Bansal MD Work Phone: [facility] Comment on above: Chronic ethmoidal si nusitis (Primary Dx); Nasal polyp; Nasal congestion with rhinorrhea Start: 06-23-2024 End: 06-23-2024 ambulatory [facility]ulatory Start: 06-17-2024 End: 06-17-2024 ambulatory [facility] Start: 06-17-2024 End: 06-17-2024 Subsequent hospital visit by physician Toni Bansal MD Work Phone: [facility] OR Comment on above: Chronic ethmoidal si nusitis (Primary Dx); Surgery, elective; HTN (hypertension), benign; Deviated nasal septum Start: 06-10-2024 End: 06-10-2024 Orders Only Barbara Peters ST[address] SWEEPER-GENERAL PRACTITIONER Work Phone: [facility] Comment on above: Migraine without aur a, not intractable, without status migrainosus Start: 06-04-2024 End: 06-04-2024 ambulatory [facility] Start: 05-18-2024 End: 05-18-2024 Refill Gera Thakkar Patrica DO Work Phone: [facility] Comment on above: Osteoporosis without current pathological fracture, unspecified osteoporosis type Start: 05-06-2024 End: 05-06-2024 ambulatory [facility] Start: 05-06-2024 Encounter for genera l adult medical examination without abnormal findings [facility] Start: 05-06-2024 End: 05-06-2024 Patient encounter status Barbara Renetta [facility] [address] SWEEPER-GENERAL PRACTITIONER Work Phone: [employer] Work Phone: Start: 05-06-2024 End: 05-06-2024 Periodic preventive med est patient 40-64yrs [address] SWEEPER-GENERAL PRACTITIONER Work Phone: [facility] Comment on above: Wellness examination (Primary Dx); Class 1 obesity due to excess calories with serious comorbidity and body mass index (BMI) of 33.0 to 33.9 in adult; LILO (obstructive sleep apnea); Encounter for screening colonoscopy; History of colon polyps Start: 05-06-2024 End: 05-06-2024 ambulatory [facility] Start: 05-06-2024 Encounter for genera l adult medical examination without abnormal findings [facility] Start: 04-01-2024 End: 04-01-2024 Office outpatient visit [address] SWEEPER-GENERAL PRACTITIONER Work Phone: [facility] Comment on above: Class 1 obesity due to excess calories with serious comorbidity and body mass index (BMI) of 31.0 to 31.9 in adult (Primary Dx); Class 1 obesity due to excess calories with serious comorbidity and body mass index (BMI) of 33.0 to 33.9 in adult; LILO (obstructive sleep apnea) Start: 04-01-2024 End: 04-01-2024 ambulatory [facility] Start: 03-11-2024 End: 03-11-2024 ambulatory FLORINDA PATRICIA Facility:[facility] Start: 03-11-2024 End: 03-11-2024 Patient encounter procedure FLORINDA PATRICIA [facility] Start: 03-10-2024 End: 03-10-2024 ambulatory Nohemi Garcia Facility:[facility] Start: 03-10-2024 End: 03-10-2024 Patient encounter procedure Nohemi Garcia [facility] Start: 03-05-2024 End: 03-05-2024 Office outpatient visit [address] [facility] [address] SWEEPER-GENERAL PRACTITIONER Work Phone: [facility] Comment on above: Essential hypertensi on (Primary Dx); Nasal polyp; Class 1 obesity due to excess calories with serious comorbidity and body mass index (BMI) of 33.0 to 33.9 in adult; Moderate persistent asthma without complication Start: 03-05-2024 End: 03-05-2024 ambulatory [facility] Start: 03-04-2024 End: 03-04-2024 ambulatory [facility] Start: 02-25-2024 End: 02-25-2024 ambulatory ANNIE NICOLE Not Available Start: 02-10-2024 End: 02-11-2024 ambulatory PANCHITO TAYLOR [place] Start: 02-10-2024 End: 02-10-2024 Patient encounter procedure Annie Nicole [facility] Start: 02-05-2024 End: 02-06-[address] SWEEPER-GENERAL PRACTITIONER Work Phone: [facility] Comment on above: Essential (primary) hypertension Start: 02-03-2024 End: 02-03-2024 ambulatory Justin YI Facility:[id number] Start: 01-28-2024 End: 01-28-2024 Office outpatient visit 25 minutes Barbara Jackson [address] SWEEPER-GENERAL PRACTITIONER Work Phone: [facility] Comment on above: Class 1 obesity due to excess calories without serious comorbidity with body mass index (BMI) of 33.0 to 33.9 in adult (Primary Dx); Graves' disease; Essential hypertension; Moderate persistent asthma without complication; Gastroesophageal reflux disease, unspecified whether esophagitis present Start: 01-12-2024 End: 01-12-2024 ambulatory ANNIE NICOLE Not Available Start: 12-29-2023 End: 12-29-2023 ambulatory [facility] Work Phone: Start: 12-29-2023 End: 12-29-2023 Patient encounter procedure [facility] Work Phone: Start: 12-17-[address] SWEEPER-REFRIGERATOR TESTER Work Phone: [facility] Comment on above: Migraine without aur a, not intractable, without status migrainosus Allergic rhinitis, u nspecified Start: 12-01-2023 End: 12-01-2023 ambulatory TYLER LINO Not Available Start: 11-25-2023 End: 11-25-2023 Patient encounter procedure FLORINDA PATRICIA [facility] Start: 11-18-2023 End: 11-18-2023 Patient encounter procedure FLORINDA PATRICIA [facility] Start: 11-07-2023 Orders Only Barbara Peters ST[address] SWEEPER-GENERAL PRACTITIONER Work Phone: [facility] Comment on above: Abnormal mammogram o f left breast (Primary Dx) Start: 11-07-[address] SWEEPER-GENERAL PRACTITIONER Work Phone: [facility] Start: 10-20-2023 End: 10-20-2023 ambulatory TYLER E RAMBASEK Not Available Start: 10-07-2023 Orders Only Barbara Peters [address] SWEEPER-GENERAL PRACTITIONER Work Phone: [facility] Comment on above: Encounter for screen ing mammogram for malignant neoplasm of breast (Primary Dx) Start: 09-29-2023 End: 09-29-2023 ambulatory TYLER E RAMBASEK Not Available Start: 09-17-[address] SWEEPER-GENERAL PRACTITIONER Work Phone: [facility] Start: 06-15-2023 End: 06-15-2023 ambulatory Maria Isabel Leonie Other [employer] Other Start: 06-15-2023 Office outpatient vi sit 15 minutes Maria Isabel Leonie [facility] Start: 06-02-2023 End: 06-02-2023 ambulatory Maria Isabel Leonie Other [employer] Other Start: 06-02-2023 Office outpatient vi sit 15 minutes Maria Isabel Leonie [facility] Start: 12-23-2022 End: 12-23-2022 ambulatory Kamal Chaban Other [employer] Other Start: 12-23-2022 Office outpatient vi sit 15 minutes Kamal Chaban [facility] Start: 12-17-2022 End: 12-18-[address] GERA BURCIAGA Facility:[facility] Start: 11-25-2022 End: 11-25-2022 Emergency department patient visit Mariusz Ro [facility] Start: 11-20-2022 End: 11-20-2022 ambulatory Maria Isabel Hadley Other [employer] Other Start: 11-20-2022 Office outpatient vi sit 15 minutes Maria Isabel Hadley [facility] Start: 11-19-2022 End: 11-19-2022 Lab Drop off BARBARA PETERS [facility] Start: 11-19-2022 End: 11-19-2022 Patient encounter procedure FLORINDA PATRICIA [facility] Lisa Start: 09-11-2022 End: 09-12-[address] JUSTIN YI . Facility:[facility] Start: 08-22-2022 End: 08-22-2022 ambulatory DO Gera Judysohailng Work Phone: [facility] Work Phone: Start: 08-22-2022 End: 08-22-2022 Patient encounter procedure DO Gera Furlong Work Phone: [facility] Start: 06-24-2022 Office outpatient ne w 30 minutes Caitlyn Long [facility] Start: 06-24-2022 End: 06-24-2022 ambulatory DO Gera Furlong Work Phone: [employer] Other Start: 06-24-2022 End: 06-24-2022 Patient encounter procedure DO Gera Furlong Work Phone: [facility] Start: 04-23-2022 End: 04-24-[address] GERA BURCIGAA Facility:[facility] Start: 04-19-2022 End: 04-19-2022 Patient encounter procedure Justin YI [facility] Start: 03-30-2022 End: 03-31-2022 Emergency department patient visit Iraida Leone Abilio [facility] Start: 02-28-2022 End: [address] ARVIN MONTEIRO Facility:[facility] Start: 02-27-2022 End: 02-27-[address] JHONY ESPINOSA . Facility:[facility] Start: 02-04-2022 End: 02-04-2022 Patient encounter procedure Misael VINES [facility] Start: 01-30-2022 End: 01-30-2022 Patient encounter procedure Nohemi Garcia [facility] Start: 01-24-2022 ambulatory Facility:[id number] Start: 01-24-2022 End: 01-24-2022 Observation Bert MENARD [facility] Start: 01-14-2022 End: 01-14-2022 ambulatory Maria Isabel Hadley Other [employer] Other Start: 01-14-2022 Office outpatient vi sit 15 minutes Maria Isabel Hadley [facility] Start: 12-07-2021 End: 12-07-2021 Patient encounter procedure BARBARA PETERS [facility] Start: 07-12-2021 Office outpatient vi sit 15 minutes Kristina Donald [facility] Procedures Date Procedure Procedure Detail Performing Clinician Start: 01-27-2025 Adult depression scr eening assessment Joanna Philip STREET SWEEPER-GENERAL PRACTITIONER Work Phone: Start: 12-30-2024 Adult depression scr eening assessment Barbara Peters STRE[address] SWEEPER-GENERAL PRACTITIONER Work Phone: Start: 12-02-2024 [address] Barbara Rodgers ch [address] SWEEPER-GENERAL PRACTITIONER Work Phone: Start: 10-20-2024 Colonoscopy Toni bartholomew MD Work Phone: Start: 08-11-2024 Follow-up visit Follow-up TONI BANSAL Start: 06-24-2024 Adult depression scr eening assessment Barbara Peters STRE[address] SWEEPER-GENERAL PRACTITIONER Work Phone: Start: 04-01-2024 Adult depression scr eening assessment Barbara Peters ST[address] SWEEPER-GENERAL PRACTITIONER Work Phone: Start: 03-05-2024 Adult depression scr eening assessment Barbara Peters ST[address] SWEEPER-GENERAL PRACTITIONER Work Phone: Start: 02-19-2024 Cystoscopic removal of ureteric stent FLORINDA PATRICIA Start: 11-05-2023 [address] Rodgers ch [address] SWEEPER-GENERAL PRACTITIONER Work Phone: Start: 07-24-2023 Adult depression scr eening assessment Barbara Peters ST[address] SWEEPER-GENERAL PRACTITIONER Work Phone: Start: 11-02-2022 [address]ammography [address] Rodgers ch [address] SWEEPER-GENERAL PRACTITIONER Work Phone: Start: 01-24-2022 Cystoscopy Bert Leone Start: 01-08-2021 Endoscopy and biopsy of upper gastrointestinal tract Krzysztof Akkina Start: 10-14-2019 Colonoscopy Toni bartholomew MD Work Phone: Start: 10-14-2019 Colonoscopy Krzysztof Akki na Appendectomy Krzysztof Akkina Cholecystectomy Krzysztof Akkina History of operative procedure on knee Krzysztof Akkina Comment on above: Torn miniscus. Repair of diaphragma tic hiatal hernia by thoracoabdominal approach Krzysztof Reddy Total hysterectomy Krzysztof preciado Plan of Treatment Date Care Activity Detail Author Start: 10-20-2034 Screening for malign ant neoplasm of [facility] Start: 09-13-2034 DTaP,Tdap and Td Vaccines (3 - Td or Tdap) DTaP,Tdap and Td Vaccines (3 - Td or Tdap) [facility] Start: 09-13-2034 DTaP/Tdap/Td Vaccine s (3 - Td or Tdap) DTaP/Tdap/Td Vaccines (3 - Td or Tdap) [facility] Start: 10-14-2029 Screening for malign ant neoplasm of [facility] Start: 01-27-2026 Adult BMI Screening Adult BMI Screen ing [facility] Start: 01-27-2026 Depression Screening Depression Scre ening [facility] Start: 01-27-2026 Tobacco Screening Tobacco Screening [facility] Start: 01-13-2026 Adult BMI Screening Adult BMI Screen ing [facility] Start: 01-13-2026 Tobacco Screening Tobacco Screening [facility] Start: 12-30-2025 Depression Screening Depression Scre ening [facility] Start: 12-02-2025 Adult BMI Screening Adult BMI Screen ing [facility] Start: 12-02-2025 Screening for malign ant neoplasm of breast Mammogram [facility] Start: 10-20-2025 Adult BMI Screening Adult BMI Screen ing [facility] Start: 10-20-2025 Tobacco Screening Tobacco Screening [facility] Start: 07-28-2025 Adult BMI Screening Adult BMI Screen ing [facility] Start: 06-24-2025 Adult BMI Screening Adult BMI Screen ing [facility] Start: 06-24-2025 Depression Screening Depression Scre ening [facility] Start: 06-24-2025 Tobacco Screening Tobacco Screening [facility] Start: 06-08-2025 End: 06-08-2025 Patient encounter procedure 06/08/2025 9:15 AM EDT Office Visit [facility] [address] [place] [address] Toni Bansal MD [id number] [facility] [facility] [address] [place], [place] [id number] [facility] Start: 05-29-2025 Screening for osteoporosis Bone Density Scan [facility] Start: 05-16-2025 Influenza vaccination Influenza Vacc ine [facility] Start: 05-12-2025 End: 05-12-2025 Patient encounter procedure 05/12/2025 4:00 PM EDT Office Visit [facility] [address] [place] [address] Barbara Peters, STREET SWEEPER-GENERAL PRACTITIONER [address] [place] [address] [facility] Start: 05-06-2025 Adult BMI Screening Adult BMI Screen ing [facility] Start: 05-06-2025 Tobacco Screening Tobacco Screening [facility] Start: 04-01-2025 Adult BMI Screening Adult BMI Screen ing [facility] Start: 04-01-2025 Depression Screening Depression Scre ening [facility] Start: 04-01-2025 Tobacco Screening Tobacco Screening [facility] Start: 03-08-2025 End: 03-08-2025 Patient encounter procedure 03/08/2025 12:30 PM EDT Office Visit [facility] [address] [place] [id number] Annetta Trujillo MD [address] [place] [address] [facility] Start: 03-05-2025 Adult BMI Screening Adult BMI Screen ing [facility] Start: 03-05-2025 Depression Screening Depression Scre ening [facility] Start: 03-05-2025 Tobacco Screening Tobacco Screening [facility] Start: 01-27-2025 Adult BMI Screening Adult BMI Screen ing [facility] Start: 01-26-2025 End: 01-26-2025 Patient encounter procedure 01/26/2025 3:00 PM EDT Office Visit [facility] [address] [place] [address] Joanna Palacios, STREET SWEEPER-GENERAL PRACTITIONER [address] [facility], [address] [place] [address] [facility] Start: 12-30-2024 End: 12-30-2025 XR Cervical spine Views X-ray spine cervical 3 views or less Imaging Routine Neck pain Expected: 12/30/2024, Expires: 12/30/2025 [facility] Comment on above: Expected: 12/30/2024 , Expires: 12/30/2025 Start: 12-30-2024 End: 12-30-2025 XR Thoracic spine 3 Views X-ray spine thoracic 3 views Imaging Routine Mid back pain on left side Expected: 12/30/2024, Expires: 12/30/2025 [facility] Work Phone: Comment on above: Expected: 12/30/2024 , Expires: 12/30/2025 Start: 12-13-2024 Bacteria identified in Urine by Culture Urine Culture [facility] Start: 12-13-2024 Urine culture [facility] Start: 12-08-2024 End: 12-08-2024 Patient encounter procedure 12/08/2024 9:30 AM EDT Office Visit [facility] [address] [place] [address] Toni Bansal MD [address] [facility] [address] [place], [place] [id number] [facility] Start: 11-22-2024 End: 11-22-2025 DBT Breast - bilateral screening Mammography screening bilateral with CAD Imaging Routine Encounter for screening mammogram for malignant neoplasm of breast Expected: 11/22/2024, Expires: 11/22/2025 [facility] Work Phone: Comment on above: Expected: 11/22/2024 , Expires: 11/22/2025 Start: 11-05-2024 Adult BMI Screening Adult BMI Screen ing [facility] Start: 11-05-2024 Screening for malign ant neoplasm of breast Mammogram [facility] Start: 10-27-2024 End: 10-27-2024 Patient encounter procedure 10/27/2024 3:15 PM EST Office Visit [facility] [address] [place] [phone] Joanna Palacios, STREET SWEEPER-GENERAL PRACTITIONER [address] [place] [address], [address] [place] [address] [facility] Start: 10-20-2024 End: 10-20-2024 Admission to same day surgery center 10/20/2024 10:00 AM EST - 10/20/2024 11:00 AM EST Surgery [facility] [address] [place] [phone] Mariusz Simon, DO [address] [place] [address] COLONOSCOPY DIAGNOSTIC / SCREENING [72172 (CPT )] [facility] Comment on above: COLONOSCOPY DIAGNOST IC / SCREENING [80610 (CPT )] Start: 10-20-2024 Subsequent hospital visit by physician 10/20/2024 10:00 AM EST Hospital Encounter [facility] [address] [place] [address] Mariusz Simon, DO [address] [place] [address] [facility] Start: 10-20-2024 End: 10-20-2024 Colonoscopy flx dx w/collj spec when pfrmd [facility] Start: 10-19-2024 End: 10-19-2024 ambulatory 10/19/2024 4:10 PM EST Support Visit [facility] - Pre Admit [address] [place] [phone] [facility] Start: 08-11-2024 End: 08-11-2024 Patient encounter procedure 08/11/2024 9:45 AM EST Office Visit [facility] [address] [place] [address] Toni Bansal MD [address] [facility] [address] [place], [place] [id number] [facility] Start: 08-10-2024 End: 08-10-2024 Admission to same day surgery center 08/10/2024 9:00 AM EST - 08/10/2024 10:00 AM EST Surgery [facility] [address] [place] [phone] Mariusz Simon, DO [address] [place] [address] COLONOSCOPY DIAGNOSTIC / SCREENING [61904 (CPT )] [facility] Comment on above: COLONOSCOPY DIAGNOST IC / SCREENING [92982 (CPT )] Start: 08-10-2024 End: 08-10-2024 Colonoscopy flx dx w/collj spec when pfrmd COLONOSCOPY DIAGNOSTIC / SCREENING History of colon polyps 08/10/2024 9:00 AM EST [facility] Start: 08-10-2024 Subsequent hospital visit by physician [facility] Comment on above: Personal history of adenomatous and serrated colon polyps (Primary Dx) Start: 08-09-2024 End: 08-09-2024 ambulatory 08/09/2024 4:20 PM EST Support Visit [facility] - Pre Admit [address] [place] [address] [facility] Start: 07-24-2024 Adult BMI Screening Adult BMI Screen ing [facility] Start: 07-24-2024 Depression Screening Depression Scre ening [facility] Start: 07-24-2024 Tobacco Screening Tobacco Screening [facility] Start: 06-30-2024 End: 06-30-2024 Patient encounter procedure 06/30/2024 10:00 AM EDT Office Visit [facility] [address] [place] [address] Toni Bansal MD [address] [place] [address] [facility] Start: 06-24-2024 End: 06-24-2024 Patient encounter procedure 06/24/2024 1:40 PM EDT Office Visit [facility] Medicine [address] [place] [address] Barbara Peters, STREET SWEEPER-GENERAL PRACTITIONER [address] [facility] [place] [address] [facility] Start: 06-23-2024 End: 06-23-2024 Patient encounter procedure 06/23/2024 10:30 AM EDT Office Visit [facility] [address] [place] [phone] Toni Bansal MD [address] [place] [address] [facility] Start: 06-17-2024 End: 06-17-2024 Nasal/sinus ndsc surg w/lor bullosa resection Excision Nasal Turbinate Deviated nasal septum Chronic ethmoidal sinusitis 06/17/2024 7:42 AM EDT [facility] Start: 06-17-2024 End: 06-17-2024 Nasal/sinus ndsc w/rmvl tiss from frontal sinus Nasal Endoscopy with Excision Tissue Frontal Sinus Deviated nasal septum Chronic ethmoidal sinusitis 06/17/2024 7:42 AM EDT [facility] Start: 06-17-2024 End: 06-17-2024 Nsl/sinus ndsc max antrost w/rmvl tiss max sinus Nasal Endoscopy with Excision Tissue Maxillary Sinus Deviated nasal septum Chronic ethmoidal sinusitis 06/17/2024 7:42 AM EDT [facility] Start: 06-17-2024 End: 06-17-2024 Septoplasty/submucous resecj w/wo cartilage grf Repair Septum Nasal Cavity Deviated nasal septum Chronic ethmoidal sinusitis 06/17/2024 7:42 AM EDT [facility] Start: 06-17-2024 End: 06-17-2024 Strtctc cptr asstd px extradural cranial Navigation-Assisted Surgery Deviated nasal septum Chronic ethmoidal sinusitis 06/17/2024 7:42 AM EDT [facility] Start: 05-16-2024 COVID-19 Vaccine ( season) COVID-19 Vaccine ( season) [facility] Start: 05-16-2024 COVID-19 Vaccine ( season) COVID-19 Vaccine ( season) [facility] Start: 05-16-2024 Influenza vaccination [facility] Start: 05-07-2024 End: 05-07-2024 Patient encounter procedure 05/07/2024 8:40 AM EDT Office Visit [facility] [address] [place] [address] Barbara Peters, STREET SWEEPER-GENERAL PRACTITIONER [address] [place] [address] [facility] Start: 05-06-2024 End: 05-06-2024 Patient encounter procedure 05/06/2024 1:00 PM EDT Office Visit [facility] [address] [place] [address] Barbara Peters, STREET SWEEPER-GENERAL PRACTITIONER [address] [place] [address] [facility] Start: 04-15-2024 Adult BMI Follow Up Plan Adult BMI Follow Up Plan [facility] Comment on above: Postponed from 03/01 (Not Indicated) Start: 04-08-2024 DTaP,Tdap and Td Vaccines (2 - Td or Tdap) DTaP,Tdap and Td Vaccines (2 - Td or Tdap) [facility] Start: 04-08-2024 DTaP/Tdap/Td Vaccine s (2 - Td or Tdap) DTaP/Tdap/Td Vaccines (2 - Td or Tdap) [facility] Start: 03-05-2024 End: 03-05-2024 Patient encounter procedure 03/05/2024 8:40 AM EDT Office Visit [facility] - Family Medicine [address] [place] [address] Barbara Peters, STREET SWEEPER-GENERAL PRACTITIONER [address] [place] [address] [facility] Internal [facility] - Family [facility] Start: 01-28-2024 End: 01-28-2024 Patient encounter procedure 01/28/2024 4:00 PM EDT Office Visit [facility] Medicine [address] [place] [address] Barbara Peters, STREET SWEEPER-GENERAL PRACTITIONER [address] [place] [address] [facility] Start: 01-22-2024 End: 01-22-2024 Patient encounter procedure 01/22/2024 4:00 PM EDT [facility] [address] [place] [address] Barbara Peters, STREET SWEEPER-GENERAL PRACTITIONER [address] [place] [address] [facility] Start: 11-18-2023 End: 11-18-2023 Patient encounter procedure 11/18/2023 11:00 AM EST Appointment [facility] [address] [place] [address] [facility] Start: 11-07-2023 End: 11-07-2024 MG Breast duct - left Views W contrast intra duct Mammography diagnostic unilateral left with CAD Imaging Routine Abnormal mammogram of left breast Expected: 11/07/2023, Expires: 11/07/2024 [employer] Work Phone: Comment on above: Expected: 11/07/2023 , Expires: 11/07/2024 Start: 11-07-2023 End: 11-07-2024 US Breast - left limited Ultrasound breast limited left Imaging Routine Abnormal mammogram of left breast Expected: 11/07/2023, Expires: 11/07/2024 [facility] [employer] Comment on above: Expected: 11/07/2023 , Expires: 11/07/2024 Start: 11-05-2023 End: 11-05-2023 Patient encounter procedure 11/05/2023 2:45 PM EST Appointment [facility] M[facility] DEXA [address] [place] [address] [facility] Start: 11-02-2023 Screening for malign ant neoplasm of breast Mammogram [facility] [employer] Start: 10-07-2023 End: 10-07-2024 DBT Breast - bilateral screening Mammography screening bilateral with CAD Imaging Routine Encounter for screening mammogram for malignant neoplasm of breast Expected: 10/07/2023, Expires: 10/07/2024 [facility] Work Phone: Comment on above: Expected: 10/07/2023 , Expires: 10/07/2024 Start: 2022 RSV High Risk: (Elde rly (60+) or Population) (1 - Risk 60-74 years 1-dose series) RSV High Risk: (Elderly (60+) or Population) (1 - Risk 60-74 years 1-dose series) [facility] Start: 2022 RSV patient s and/or patients aged 60+ years (1 - 1-dose 60+ series) RSV patients and/or patients aged 60+ years (1 - 1-dose 60+ series) [facility] Start: 1983 Screening for malign ant neoplasm of cervix [facility] Start: 1980 Adult BMI Follow Up Plan Adult BMI Follow Up Plan [facility] Start: 1980 Diabetes mellitus screening Diabetes Screening [facility] Start: 1980 Hepatitis C screening Hepatitis C Sc [facility] Start: 1963 MMR Vaccines (1 of 1 - Standard series) MMR Vaccines (1 of 1 - Standard series) [facility] Start: 1962 HIV screening HIV Screening [facility] Start: 1962 Lipid panel Lipid Panel [facility] Start: 1962 Screening for malign ant neoplasm of colon [facility] Start: 1962 Thyroid stimulating hormone measurement TSH Level [facility] Start: 1962 Yearly Adult Physical Yearly Adult P hysical [facility] Colonoscopy flx dx w/collj spec when pfrmd COLONOSCOPY DIAGNOSTIC / SCREENING Personal history of adenomatous and serrated colon polyps [facility] Colonoscopy flx dx w/collj spec when pfrmd COLONOSCOPY DIAGNOSTIC / SCREENING Personal history of adenomatous and serrated colon polyps [facility] End: 06-17-2024 Continuous Pulse oximetry, In Phase 1 Continuous Pulse oximetry, In Phase 1 Respiratory Care Routine Continuous until discontinued starting 06/17/2024 [facility] Work Phone: Comment on above: Continuous until dis continued starting 06/17/2024 End: 06-24-2025 Home sleep study Home sleep study Sleep Center Routine LILO (obstructive sleep apnea) 1 Occurrences starting 06/24/2024 until 06/24/2025 [facility] Work Phone: Comment on above: 1 Occurrences starti ng 06/24/2024 until 06/24/2025 Surgical pathology study Surgical Pathology Exam Pathology and Cytology Timed Deviated nasal septum Chronic ethmoidal sinusitis Release Upon Ordering for 1 Occurrences starting 06/17/2024 [facility] Work Phone: Comment on above: Release Upon Orderin g for 1 Occurrences starting 06/17/2024 Immunizations Immunization Date Immunization Notes Care Provider [facility] 06-24-2024 influenza, seasonal, injectable, preservative free Barbara Fran STREET SWEEPER-GENERAL PRACTITIONER Work Phone: [facility] 06-24-2024 Immunization, In Clinic,; Translations: [Drug or medicament (substance)] Barbara Fran STRE[address] SWEEPER-GENERAL PRACTITIONER Work Phone: [facility] 06-24-2024 influenza virus vaccine, unspecified formulation Barbara Fran STRE[address] SWEEPER-GENERAL PRACTITIONER Work Phone: [facility] 08-06-2023 zoster vaccine recombinant Barbara Fran STRE[address] SWEEPER-GENERAL PRACTITIONER Work Phone: [facility] 06-19-2023 Influenza Vaccine, Quadrivalent, Adjuvanted Barbara Fran STRE[address] SWEEPER-GENERAL PRACTITIONER Work Phone: [facility] 06-19-2023 influenza virus vaccine, unspecified formulation FLORINDA PATRICIA [facility] 06-19-2023 influenza, injectabl e, quadrivalent, preservative free Barbara Fran STRE[address] SWEEPER-GENERAL PRACTITIONER Work Phone: [facility] 04-11-2023 Pneumococcal Conjuga te 20-valent Barbara Fran STRE[address] SWEEPER-GENERAL PRACTITIONER Work Phone: [facility] 04-11-2023 zoster vaccine recombinant Barbara Fran STRE[address] SWEEPER-GENERAL PRACTITIONER Work Phone: [facility] 06-27-2022 influenza virus vaccine, unspecified formulation FLORINDA KADE [facility] 06-27-2022 influenza, injectabl e, quadrivalent, preservative free Barbara Fran STRE[address] SWEEPER-GENERAL PRACTITIONER Work Phone: [facility] [place] [facility] 06-27-2022 influenza, live, intranasal, quadrivalent Barbara Fran STRE[address] SWEEPER-GENERAL PRACTITIONER Work Phone: [facility] [place] [facility] 09-27-2021 SARS-CoV-2 (COVID-19 ) mRNA-1273 vaccine FLORINDA KADE [facility] 06-27-2021 influenza virus vaccine, unspecified formulation FLORINDA KADE [facility] 06-27-2021 influenza, injectabl e, quadrivalent, preservative free Barbara Fran STRE[address] SWEEPER-GENERAL PRACTITIONER Work Phone: [facility] [employer] 06-02-2021 Toradol 30 mg/ml Kristina tillman Other [employer] Other 12-08-2020 SARS-CoV-2 (COVID-19 ) mRNA-1273 vaccine FLORINDA KADE [facility] Comment on above: Result Comment: 2023: [id number] 11-08-2020 SARS-CoV-2 (COVID-19 ) mRNA-1273 vaccine FLORINDA KADE [facility] Comment on above: Result Comment: 2023: [id number] 06-16-2020 influenza virus vaccine, unspecified formulation FLROINDA KADE [facility] 06-16-2020 influenza, injectabl e, quadrivalent, preservative free Barbara Fran STRE[address] SWEEPER-GENERAL PRACTITIONER Work Phone: [facility] 06-22-2019 PROMETHAZINE (Phenergan) up to 50 mg Kristina Shabana Other [employer] Other 06-22-2019 Toradol per 15 mg Kristina Shabana Other [employer] Other 06-08-2019 influenza virus vaccine, unspecified formulation FLORINDA KADE [facility] 06-08-2019 influenza, injectabl e, quadrivalent, preservative free Barbara Fran STRE[address] SWEEPER-GENERAL PRACTITIONER Work Phone: [facility] 05-10-2018 influenza, injectabl e, quadrivalent, contains preservative Barbara Fran STRE[address] SWEEPER-GENERAL PRACTITIONER Work Phone: [facility] 05-09-2018 influenza virus vaccine, unspecified formulation FLORINDA KAED [facility] 05-09-2018 influenza, injectabl e, quadrivalent, preservative free Barbara Fran STRE[address] SWEEPER-GENERAL PRACTITIONER Work Phone: [facility] 05-09-2017 influenza virus vaccine, unspecified formulation FLORINDA KADE [facility] 05-09-2017 influenza, injectabl e, quadrivalent, preservative free Barbara Fran STRE[address] SWEEPER-GENERAL PRACTITIONER Work Phone: [facility] 07-10-2016 Toradol per 15 mg Kristina Shabana Other [employer] Other 07-10-2016 PROMETHAZINE (Phenergan) up to 50 mg Kristina Shabana Other [email or web address] Other 06-13-2016 influenza virus vaccine, unspecified formulation FLORINDARADHA PATRICIA [facility] 06-13-2016 influenza, seasonal, injectable, preservative free Barbara Fran STRE[address] SWEEPER-GENERAL PRACTITIONER Work Phone: [facility] 06-28-2015 influenza virus vaccine, unspecified formulation FLORINDA KADE [facility] 06-28-2015 influenza, seasonal, injectable, preservative free Barbara Fran STRE[address] SWEEPER-GENERAL PRACTITIONER Work Phone: [facility] 04-08-2014 tetanus toxoid, reduced diphtheria toxoid, and acellular pertussis vaccine, adsorbed Barbara Fran STRE[address] SWEEPER-GENERAL PRACTITIONER Work Phone: [facility] 09-06-2013 influenza nasal, unspecified formulation Barbara Fran STRE[address] SWEEPER-GENERAL PRACTITIONER Work Phone: [facility] 09-06-2013 influenza virus vaccine, unspecified formulation Barbara Fran ST[address] SWEEPER-GENERAL PRACTITIONER Work Phone: [facility] 09-06-2013 influenza, unspecifi ed formulation FLORINDA KADE [facility] Payers Date Payer Category Payer Self-pay [id number] 2023 Private Health Insurance GENERIC COMMERCIAL [id number] 2018 Managed Care Other (unspecified) [employer] [id number]. [id number] 2018 Unknown 1.2.840.382692. 1.13.647. 2.7.3.543775.315 1962 Unknown [id number] 2.16.840.1.513455.3.579. 2.356 1962 Unknown [id number] 2.16.840.1.273427.3.579. 2.593 1962 Unknown [id number] 2.16.840.1.331489.3.579. 2.593 1962 Unknown [id number] 2.16.840.1.393769.3.579. 2.593 1962 Unknown [id number] 2.16.840.1.450590.3.579. 2.593 1962 Unknown [id number] 2.16.840.1.399144.3.579. 2.593 1962 Unknown [id number] 2.16.840.1.828791.3.579. 2.1259 1962 Unknown [id number] 2.16.840.1.823810.3.579. 2.1259 1962 Unknown [id number] 2.16.840.1.375831.3.579. 2.1259 1962 Unknown [id number] 2.16.840.1.884147.3.579. 2.1259 1962 Unknown [id number] 2.16.840.1.042638.3.579. 2.1259 1962 Unknown [id number] 2.16.840.1.662640.3.579. 2.727 1962 Unknown [id number] 2.16.840.1.814906.3.579. 2.727 1962 Unknown [id number] 2.16.840.1.722659.3.579. 2.727 1962 Unknown [id number] 2.16.840.1.864060.3.579. 2.1286 1962 Unknown [id number] 2.16.840.1.173483.3.579. 2.1245 1962 Unknown [id number] 2.16.840.1.086737.3.579. 2.1245 1962 Unknown [id number] 2.16.840.1.996634.3.579. 2.1244 1962 Unknown [id number] 2.16.840.1.464908.3.579. 2.1244 1962 Unknown [id number] 2.16.840.1.917339.3.579. 2.1244 1962 Unknown [id number] 2.16.840.1.918952.3.579. 2.1244 1962 Unknown [id number] 2.16.840.1.411796.3.579. 2.1244 1962 Unknown [id number] 2.16.840.1.828499.3.579. 2.1286 1962 Unknown [id number] 2.16.840.1.955872.3.579. 2.1286 2 Unknown [id number] 2.16.840.1.142596.3.579. 2.1285 1962 Unknown [id number] 2.16.840.1.710741.3.579. 2.1285 1962 Unknown [id number] 2.16.840.1.045537.3.579. 2.1285 1962 Unknown [id number] 2.16.840.1.112928.3.579. 2.1285 1962 Unknown [id number] 2.16.840.1.376821.3.579. 2.1285 1962 Unknown [id number] 2.16.840.1.538757.3.579. 2.1285 1962 Unknown [id number] 2.16.840.1.258892.3.579. 2.1285 1962 Unknown [id number] 2.16.840.1.048545.3.579. 2.1285 1962 Unknown [id number] 2.16.840.1.318589.3.579. 2.1285 1962 Unknown [id number] 2.16.840.1.890709.3.579. 2.1285 1962 Unknown [id number] 2.16.840.1.236686.3.579. 2.1285 1962 Unknown [id number] 2.16.840.1.449199.3.579. 2.1285 1962 Unknown [id number] 2.16.840.1.591855.3.579. 2.1285 1962 Unknown [id number] 2.16.840.1.626207.3.579. 2.727 1959 Unknown [id number] 2.16.840.1.950887.19 Unknown [id number] 2.16.840.1.623523.3.579. 2.531 Social History Date Type Detail Facility Start: 01-30-2021 End: 10-20-2024 Tobacco smoking status Ex-smoker (finding) [facility] [email or web address] Other Start: 10-23-2022 End: 05-31-2024 Sex Assigned At Female [facility] [email or web address] Other Start: 1960 Sex Assigned At Female [facility] Start: 10-11-2018 End: 11-19-2022 Tobacco smoking status Never smoked tobacco (finding) [facility] Tobacco smoking status Never [facility] [facility] Start: 09-15-1986 End: 09-15-2004 History of tobacco use Current smoker [employer] Start: 09-15-1986 End: 09-15-2004 History of tobacco use Cigarette Smoker [facility] Work Phone: Start: 03-04-2024 End: 10-20-2024 Tobacco use and exposure Smokeless [facility] Start: 06-17-2024 End: 06-23-2024 Alcoholic beverage intake Lifetime non-drinker (finding) [facility] Work Phone: Start: 10-23-2022 End: 05-31-2024 History of Social function [facility] Start: 1960 Sex assigned at Not on file writewith ystem Start: 06-07-2024 End: 12-08-2024 Exposure to SARS-CoV-2 (event) Not sure [facility] Start: 06-18-2024 Gender identity Identifies as female gender (finding) [facility] Work Phone: Start: 06-18-2024 Sexual orientation Heterosexual (finding) [facility] Work Phone: Start: 06-30-2024 End: 01-27-2025 Alcoholic beverage intake Ex-drinker (finding) [employer] Start: 06-30-2024 Alcohol Comment [facility] Work Phone: Do you belong to any clubs or organizations such as moravian groups, unions, fraternal or athletic groups, or school groups? No [facility] Are you now , , , , never or living with a partner? [facility] How often to you hav e a drink containing alcohol? Never [facility] Do you feel stress - tense, restless, nervous, or anxious, or unable to sleep at night because your mind is troubled all the time - these days [OSQ] To some extent [facility] Start: 10-23-2022 Education [employer] Start: 04-20-2015 End: 12-14-2024 Sex Female (finding) [facility] How hard is it for y ou to pay for the very basics like food, housing, medical care, and heating Not very hard [facility] Medical Equipment Procedure Code Equipment Code Equipment Origin al Text Equipment Identifier Dates FDA Start: 01-24-2022 FDA Start: 01-24-2022 FDA Start: 01-24-2022 CYSTOSCOPY RETROGRADE STENT INSERTION Misael VINES MD 01/24/22 Unknown Ureter R FDA Start: 01-24-2022 CYSTOSCOPY RETROGRADE STENT INSERTION Misael VINES MD 01/24/22 Unknown Ureter R FDA Start: 01-24-2022 CYSTOSCOPY RETROGRADE STENT INSERTION Misael VINES MD 01/24/22 Unknown Ureter R FDA Start: 01-24-2022 CYSTOSCOPY RETROGRADE STENT INSERTION Misael VINES MD 01/24/22 Unknown Ureter R FDA Start: 01-24-2022 CYSTOSCOPY RETROGRADE STENT INSERTION Misael VINES MD 01/24/22 Unknown Ureter R FDA Start: 01-24-2022 CYSTOSCOPY RETROGRADE STENT INSERTION Misael VINES MD 01/24/22 Unknown Ureter R FDA Start: 01-24-2022 CYSTOSCOPY RETROGRADE STENT INSERTION Misael VINES MD 01/24/22 Unknown Ureter R FDA Start: 01-24-2022 CYSTOSCOPY RETROGRADE STENT INSERTION Misael VINES MD 01/24/22 Unknown Ureter R FDA Start: 01-24-2022 CYSTOSCOPY RETROGRADE STENT INSERTION Misael VINES MD 01/24/22 Unknown Ureter R FDA Start: 01-24-2022 CYSTOSCOPY RETROGRADE STENT INSERTION Misael VINES MD 01/24/22 Unknown Ureter R FDA Start: 01-24-2022 CYSTOSCOPY RETROGRADE STENT INSERTION Misael VINES MD 01/24/22 Unknown Ureter R FDA Start: 01-24-2022 CYSTOSCOPY RETROGRADE STENT INSERTION Misael VINES MD 01/24/22 Unknown Ureter R FDA Start: 01-24-2022 Implant, [employer] Contour Sinus - [id number] Start: 06-17-2024 Implant, [employer] Contour Sinus - [id number] Start: 06-17-2024 Goals Date Patient Goal Desired Activity /State Personal health goal Comment on above: Formatting of this n ote might be different from the original. Evaluation of progress towards goal: Plans to return home with self care. Functional Status Date Assessment Result Facility 03-11-2024 Functional Status N/A [facility] 11-25-2023 Functional Status N/A [facility] 11-25-2022 Functional Status N/A [facility] 11-19-2022 Functional Status Yes [facility] 04-19-2022 Functional Status N/A [facility] 03-30-2022 Functional Status N/A [facility] Clinical Notes 07-12-2021 to 01-27-2025 [facility] 01/27/[facility]25 11:20 AM EDTScatarino Palacios [facility] - 01/26/2025 3:00 PM EDTPatient REJI Maddox - 01/13/2025 11:00 AM EDTDischarge Instructions Note Date & Type Note Facility 01-27-2025 History of Present illness Narrative Subjective Patient ID: Yani Joseph is a 64 y.o. female. The patient is here today for discharge follow up from hospital. Transition of Care Med Rec completed? Yes Discharged medications: Medications have been reviewed and reconciled with the most recent facility discharge document. HPI Patient was in [facility] from January 17 to January 18 for right upper lung community-acquired pneumonia. She had gone to the ER for nausea and vomiting but her white blood cell count was elevated and a chest x-ray revealed pneumonia. She was kept overnight for IV antibiotic therapy as she was not tolerating oral therapy. She has now finished her to oral antibiotics as an outpatient and feels back to her breathing baseline. Today is day 9 from discharge from hospital. Patient also has obstructive sleep apnea and recently saw her sleep specialist. She is only using her sleep mask for a few hours/night. Unfortunately she had sinus surgery last year and thought this would resolve her sleep apnea but it did not. She wants the inspire device and is determining if insurance will cover. Her imaging from the hospital was reviewed and it revealed incidentally a moderate hiatal hernia but she is currently having very few GERD symptoms. A few times a month she will use sometimes but that generally resolves her symptoms. The following portions of the patient's history were reviewed and updated as appropriate: allergies, current medications, past family history, past medical history, past social history, past surgical history, problem list, and medication reconciliation was completed including current medication and post discharge medication. Review of Systems Constitutional: Negative for chills and fever. HENT: Negative for ear pain and sore throat. Eyes: Negative for pain and visual disturbance. Respiratory: Negative for cough and shortness of breath. Cardiovascular: Negative for chest pain and palpitations. Gastrointestinal: Negative for abdominal pain and vomiting. Genitourinary: Negative for dysuria and hematuria. Musculoskeletal: Negative for arthralgias and back pain. Skin: Negative for color change and rash. Neurological: Negative for seizures and syncope. Psychiatric/Behavioral: Positive for sleep disturbance. All other systems reviewed and are negative. Objective Physical Exam Vitals reviewed. Constitutional: Appearance: Normal appearance. She is obese. HENT: Head: Normocephalic and atraumatic. Right Ear: Tympanic membrane, ear canal and external ear normal. Left Ear: Tympanic membrane, ear canal and external ear normal. Nose: Nose normal. Mouth/Throat: Mouth: Mucous membranes are moist. Eyes: Pupils: Pupils are equal, round, and reactive to light. Cardiovascular: Rate and Rhythm: Normal rate and regular rhythm. Heart sounds: Normal heart sounds. Pulmonary: Effort: Pulmonary effort is normal. Breath sounds: Normal breath sounds. Abdominal: General: Bowel sounds are normal. Palpations: Abdomen is soft. Tenderness: There is no abdominal tenderness. Musculoskeletal: Right lower leg: No edema. Left lower leg: No edema. Lymphadenopathy: Cervical: No cervical adenopathy. Skin: General: Skin is warm. Capillary Refill: Capillary refill takes less than 2 seconds. Neurological: General: No focal deficit present. Mental Status: She is alert and oriented to person, place, and time. Gait: Gait normal. Psychiatric: Mood and Affect: Mood normal. Behavior: Behavior normal. Assessment/Plan Yani was seen today for tcm from [facility]. Diagnoses and all orders for this visit: Community acquired pneumonia of right upper lobe of lung Her respiratory symptoms have resolved and she has finished her antibiotic therapy. Radiologist did not recommend follow-up imaging for patient. Hiatal hernia Patient is currently having very minimal GERD symptoms intermittently and is not interested in a surgical consultation for this. Obstructive sleep apnea She should continue to determine if insurance will cover and inspire device and she is working with her lab associate team on this. She should attempt to wear the mask as long as she can per night. She understands the risks of untreated sleep apnea. Patient should follow up when she is due for her wellness or sooner as needed. MALI Espinoza 02/01/25 1348 documented in this encounter [facility] 01-26-2025 History of Present illness Narrative Images from the original note were not included. Chief Complaint: Yani Joseph [facility] for initial visit on 01/26/2025. She is a 64 y.o. female followed at the Sleep Clinic for LILO. HPI: The patient reports that she is non-adherent to her nocturnal ventilatory support. She has had her machine since 2022 and has never been able to wear consistently due to intolerance to mask. She has tried on an off over the years. She feels the pressure and mask are tolerable and comfortable, but she can not fall asleep with the mask on her face as she is restless sleeper without machine. She has tried OTC sleeping medications in the past with the most recent being melatonin. History of sinus issues with surgery which has help in this regard. Stopped machine after this in March of 2024. She is interested in inspire device. Recent HST Home sleep apnea test on 07/28/2024 (THADDEUS (3%)=15.4 events/hour; THADDEUS (4%)=6.7 events/hour; Jerod SpO2=84.0%; Opjhui=088.0 lbs; BMI=30.7 kg/m2) She denies any dyspnea, fevers, chills, hemoptysis, wheezing, or chest pain. She denies sleepiness while driving. Supplemental O2 use: none Current PAP interface: She uses a Nasal Mask. She does not use a chinstrap. She does use the heated inline humidifier. Cleaning supplies with soap and water. [place] Sleepiness Scale: Sitting and Reading: Slight Chance Watching TV: Slight Chance Sitting inactive in a public place (theater, meeting): Never As a passenger in a car for an hour without a break: Slight Chance Lying down in the afternoon to rest: Never Sitting and talking to someone: Never Sitting quietly after lunch (without alcohol): Never In a car, while stopped for a few minutes in traffic: Never Total: 3 OARRS: Reviewed: no PMH: Pertinent History: Her pertinent medical history includes Past Medical History: Diagnosis Date Asthma History of angina 03/2009 Hypertension Hypothyroid Kidney stones 02/02/2024 Pneumonia of right upper lobe due to infectious organism 01/17/2025 Pulmonary embolism ([facility] 2009 Shortness of breath Sinusitis chronic, frontal 02/2024 Sleep apnea Sleep apnea with use of continuous positive airway pressure (CPAP) Thoracic back pain 12/2024 Visual impairment Medications: Reviewed with patient. Current Outpatient Medications: alendronate (FOSAMAX) 70 mg tablet, TAKE 1 TABLET BY MOUTH EVERY 7 (SEVEN) days in IN THE MORNING WITH water ON AN EMPTY STOMACH and nothing else BY MOUTH and remain upright for 30 mins, Disp: 4 tablet, Rfl: 11 aspirin 81 mg, Take 1 tablet (81 mg total) by mouth in the morning., Disp: , Rfl: cyproheptadine (PERIACTIN) 4 mg tablet, TAKE 1 TABLET BY MOUTH NIGHTLY NEEDED for allergies, Disp: 90 tablet, Rfl: 1 losartan (COZAAR) 50 mg tablet, TAKE 1 TABLET BY MOUTH DAILY, Disp: 90 tablet, Rfl: 1 methIMAzole (TAPAZOLE) 10 mg tablet, Take 1 tablet (10 mg total) by mouth 3 (three) times a week., Disp: , Rfl: montelukast (SINGULAIR) 10 mg tablet, TAKE 1 TABLET BY MOUTH IN THE EVENING, Disp: 90 tablet, Rfl: 2 SYMBICORT 160-4.5 mcg/actuation inhaler, INHALE 2 PUFFS BY MOUTH TWICE DAILY, Disp: 10.2 g, Rfl: 5 No current facility-administered medications for this visit. Facility-Administered Medications Ordered in Other Visits: sodium chloride 0.9 % flush 3 mL, 3 mL, intravenous, PRN, Mariusz Simon, DO sodium chloride 0.9 % flush 3 mL, 3 mL, intravenous, Q12H EARL, Mariusz Simon, Vitals: 01/26/25 1503 BP: 153/86 Pulse: 90 SpO2: 97% Weight: 84.4 kg (186 lb) Height: 165.1 cm (5' 5 ) Allergies: Reviewed with patient. Patient has no known allergies. Family History: Family History Problem Relation Age of Onset Diabetes Mother Mental illness Mother Miscarriages / Stillbirths Mother Stroke Mother Diabetes Father Cancer Father Alcohol abuse Maternal Grandfather Lung cancer Maternal Grandfather Mental illness Maternal Grandmother Diabetes Paternal Grandmother Drug abuse Son Drug abuse Son Breast cancer Neg Hx Social History: Social History Socioeconomic History Marital status: Highest education level: Some college, no degree Tobacco Use Smoking status: Former Current packs/day: 0.00 Average packs/day: 0.2 packs/day for 18.0 years (2.7 ttl pk-yrs) Types: Cigarettes Start date: 1986 Quit date: 2004 Years since quittin.3 Smokeless tobacco: Never Vaping Use Vaping status: Never Used Substance and Sexual Activity Alcohol use: Not Currently Drug use: Never Sexual activity: Not Currently Social Drivers of Health Financial Resource Strain: Low Risk (12/29/2024) Overall Financial Resource Strain (CARDIA) Difficulty of Paying Living Expenses: Not very hard Food Insecurity: No Food Insecurity (01/27/2025) Hunger Screening Food Insecurity - Worry: Never True Food Insecurity - Inability: Never True Transportation Needs: No Transportation Needs (01/17/2025) PRAPARE - Transportation Lack of Transportation (Medical): No Lack of Transportation (Non-Medical): No Physical Activity: Insufficiently Active (10/23/2022) Exercise Vital Sign Days of Exercise per Week: 1 day Minutes of Exercise per Session: 20 min Stress: Stress Concern Present (10/23/2022) [employer] [place] Occup[employer] Health - Occupational Stress Questionnaire Feeling of Stress : To some extent Social Connections: Moderately Integrated (10/23/2022) Social Connection and Isolation Panel [NHANES] Frequency of Communication with Friends and Family: More than three times a week Frequency of Social Gatherings with Friends and Family: Twice a week Attends Yazidi Services: More than 4 times per year Active Member of Clubs or Organizations: No Attends Club or Organization Meetings: Never Marital Status: Interpersonal Safety: Not At Risk (01/17/2025) Humiliation, Afraid, Rape, and Kick questionnaire Fear of Current or Ex-Partner: No Emotionally Abused: No Physically Abused: No Sexually Abused: No Housing Instability: Low Risk (01/17/2025) Housing Instability Housing Instability: No Travel History: Denies recent travel. ROS: All 11 systems have been reviewed: Review of Systems Constitutional: Negative for chills, fatigue and fever. Respiratory: Negative for cough, shortness of breath and wheezing. Cardiovascular: Negative for chest pain/discomfort. All other systems are reviewed and are negative except as noted. Physical Examination: Vital signs BP 153/86 Pulse 90 Ht 165.1 cm (5' 5 ) Wt 84.4 kg (186 lb) SpO2 97% BMI 30.95 kg/m Physical Exam Vitals and nursing note reviewed. Constitutional: Appearance: Normal appearance. Cardiovascular: Heart sounds: Normal heart sounds. Pulmonary: Breath sounds: Normal breath sounds. Musculoskeletal: Cervical back: Neck supple. Skin: General: Skin is warm and dry. Neurological: Mental Status: She is alert and oriented to person, place, and time. Psychiatric: Mood and Affect: Mood normal. Behavior: Behavior normal. Laboratory DATA: Lab Results Component Value Date CARBON DIOXIDE 25 01/18/2025 Lab Results Component Value Date TSH 1.40 02/20/2023 T3, free 2.87 02/20/2023 Lab Results Component Value Date WBC 10.7 01/18/2025 HGB 11.7 01/18/2025 HCT 34.3 (L) 01/18/2025 MCV 88 01/18/2025 PLT 251 01/18/2025 No results found for: FERRITIN Chemistry Component Value Date/Time K 3.9 01/18/2025 0444 CL 109 01/18/2025 0444 CL 102 05/06/2024 1408 CO2 25 01/18/2025 0444 BUN 15 01/18/2025 0444 CREATININE 0.43 01/18/2025 0444 CREATININE 0.71 05/06/2024 1408 GLU 96 01/18/2025 0444 Component Value Date/Time CALCIUM 7.4 (L) 01/18/2025 0444 ALKPHOS 98 01/18/2025 0444 AST 26 01/18/2025 0444 AST 23 02/20/2023 0930 ALT 30 01/18/2025 0444 ALT 34 (H) 02/20/2023 0930 Lab Results Component Value Date TSH 1.40 02/20/2023 No results found. DATA: Home sleep apnea test on 07/28/2024 (THADDEUS (3%)=15.4 events/hour; THADDEUS (4%)=6.7 events/hour; Jerod SpO2=84.0%; Zgcjat=643.0 lbs; BMI=30.7 kg/m2) APAP 7-14 cm H20 pressure DME: [employer] Data card was available for PAP usage data download. PAP compliance is unsatisfactory. Impression: Yani was seen today for new patient and sleep apnea. Diagnoses and all orders for this visit: LILO (obstructive sleep apnea) BMI 30.0-30.9,adult Obesity (BMI 30-39.9) Difficulty with CPAP use LILO with adherence to nocturnal ventilatory support on a nightly basis. Obesity Body mass index is 30.95 kg/m . History of PE Essential HTN History of asthma with management per PCP GERD Graves disease Plan: Discussed diagnosis, its evaluation, treatment and usual course. All questions answered. Educational material distributed. No orders of the defined types were placed in this encounter. No orders of the defined types were placed in this encounter. She is interested in Inspire device. Will have follow up appointment with sleep MD. Independently reviewed and interpreted ESS and data download Diet and exercise were discussed in detail. Any age appropriate or routine screening per PCP. Follow up in 1 Months time with sleep MD for inspire. If her condition should change prior to this she is encouraged to give our office a call. Discussed triggers to call back before follow up including weight change > 10%, major medical issues including stroke, arrhythmia or heart attack, or significant change in symptoms. EDUCATION: Driving precautions were reviewed. I advised the patient not to drive if sleepy, and to felt puller if sleepiness occurs while driving. Above plan as discussed with the patient who acknowledged understanding and agreement. Health risks associated with untreated LILO were discussed (cardiopulmonary, cerebrovascular, and anesthesia/sedative-related). Discussed triggers to call back before next visit including weight change > 10%, major medical issues including stroke, arrhythmia or heart attack, or significant change in symptoms. This note is dictated with the use of M*Modal.Please note that this dictation was completed with computer voice recognition software. Quite often unanticipated grammatical, syntax, homophones, and other interpretive errors are inadvertently transcribed by the computer software. Please disregard these errors. Please excuse any errors that have escaped final proofreading. Joanna Palacios [facility] Office: [phone] 12:24 PM on 01/27/2025 CC: MALI ESPINOZA APRN-CNP 01/27/25 1224 documented in this encounter [facility] 01-26-2025 Instructions MALI Sheehan - 01/26/2025 3:00 PM EDT If you re looking for general health and wellness resources, please visit [email or web address]. documented in this encounter [facility] 01-13-2025 History of Present illness Narrative [facility] [address] [place] [address] Patient: Yani Joseph Sex: female : 1960 Age: 64 y.o. PCP: BARBARA PETERS, STRE[facility]EEPER-GENERAL PRACTITIONER 01/13/2025 Yani Joseph is here for a(n) initial consultation for thoracic pain that started a month ago. Patient states that thoracic feels better today but left elbow is aching and tingling. Chief Complaint Patient presents with Back Pain Extremity Pain HPI: Back Pain This is a new (December 2023 (1 month ago)) problem. The current episode started 1 to 4 weeks ago. The problem occurs intermittently. The problem has been gradually improving since onset. The pain is present in the thoracic spine (left scapular region). The quality of the pain is described as aching. The pain is at a severity of 1/10. The pain is mild. Stiffness is present: N/A. Associated symptoms include tingling. Pertinent negatives include no bladder incontinence, bowel incontinence, numbness or weakness. Risk factors include history of osteoporosis and obesity. She has tried NSAIDs, heat and muscle relaxant (IBU, Tylenol #3, Baclofen, Tylenol ES, heat) for the symptoms. The treatment provided moderate relief. Extremity Pain The pain is present in the left elbow. This is a new problem. The current episode started 1 to 4 weeks ago. The problem occurs constantly. The quality of the pain is described as aching (tingles). The pain is at a severity of 4/10. Associated symptoms include tingling. Pertinent negatives include no limited range of motion, numbness or stiffness. She has tried NSAIDS, rest, acetaminophen and OTC pain meds (IBU, Tylenol #3, Baclofen, Tylenol ES) for the symptoms. The treatment provided moderate relief. Her past medical history is significant for osteoarthritis. The effect of pain on patient's ADLS: Moderate Impairment. Past Medical History: Diagnosis Date Asthma History of angina 03/2009 Hypertension Hypothyroid Kidney stones 02/02/2024 Pulmonary embolism ([facility]) 2009 Shortness of breath Sinusitis chronic, frontal 02/2024 Sleep apnea Sleep apnea with use of continuous positive airway pressure (CPAP) Thoracic back pain 12/2024 Visual impairment Past Surgical History: Procedure Laterality Date APPENDECTOMY CARDIAC CATHETERIZATION 2009 CHOLECYSTECTOMY COLONOSCOPY DIAGNOSTIC / SCREENING N/A 10/20/2024 Performed by Mariusz Simon DO at [facility] HIATAL HERNIA REPAIR HYSTERECTOMY 1993 complete KNEE ARTHROSCOPY W/ DEBRIDEMENT Left 2013 OOPHORECTOMY Bilateral 1994 SINUS SURGERY 06/17/2024 No Known Allergies Family History Problem Relation Age of Onset Diabetes Mother Diabetes Father Cancer Father Breast cancer Neg Hx Social History Socioeconomic History Marital status: Spouse name: Not on file Number of children: Not on file Years of education: Not on file Highest education level: Some college, no degree Occupational History Not on file Tobacco Use Smoking status: Former Current packs/day: 0.00 Average packs/day: 0.2 packs/day for 18.0 years (2.7 ttl pk-yrs) Types: Cigarettes Start date: 1986 Quit date: 2004 Years since quittin.3 Smokeless tobacco: Never Vaping Use Vaping status: Never Used Substance and Sexual Activity Alcohol use: Not Currently Drug use: Never Sexual activity: Not Currently Other Topics Concern Not on file Social History Narrative Not on file Social Drivers of Health Financial Resource Strain: Low Risk (12/29/2024) Overall Financial Resource Strain (CARDIA) Difficulty of Paying Living Expenses: Not very hard Food Insecurity: No Food Insecurity (01/13/2025) Hunger Screening Food Insecurity - Worry: Never True Food Insecurity - Inability: Never True Transportation Needs: No Transportation Needs (12/29/2024) PRAPARE - Transportation Lack of Transportation (Medical): No Lack of Transportation (Non-Medical): No Physical Activity: Insufficiently Active (10/23/2022) Exercise Vital Sign Days of Exercise per Week: 1 day Minutes of Exercise per Session: 20 min Stress: Stress Concern Present (10/23/2022) [employer] of Occupational Health - Occupational Stress Questionnaire Feeling of Stress : To some extent Social Connections: Moderately Integrated (10/23/2022) Social Connection and Isolation Panel [NHANES] Frequency of Communication with Friends and Family: More than three times a week Frequency of Social Gatherings with Friends and Family: Twice a week Attends Yazidi Services: More than 4 times per year Active Member of Clubs or Organizations: No Attends Club or Organization Meetings: Never Marital Status: Interpersonal Safety: Not At Risk (10/23/2022) Humiliation, Afraid, Rape, and Kick questionnaire Fear of Current or Ex-Partner: No Emotionally Abused: No Physically Abused: No Sexually Abused: No Housing Instability: Low Risk (12/29/2024) Housing Instability Housing Instability: No Review of Systems HENT: Negative. Respiratory: Negative. Cardiovascular: Negative. Gastrointestinal: Negative for bowel incontinence, constipation and diarrhea. Genitourinary: Negative. Negative for bladder incontinence. Musculoskeletal: Positive for back pain. Negative for stiffness. Neurological: Positive for tingling. Negative for weakness and numbness. Psychiatric/Behavioral: Negative. Vital Signs: BP 142/78 Pulse 87 Resp 16 Ht 165.1 cm (5' 5 ) Wt 86.2 kg (190 lb) SpO2 98% BMI 31.62 kg/m Physical Exam: GENERAL - Healthy patient that appears stated age. HEENT - Normocephalic / Atraumatic, Extraoccular movements intact, trachea midline, thyroid within normal limits. CV - pulse regular, Warm extremities with appropriate color of nailbeds. RESP - No obvious wheezing, No Shortness of Breath, No overexertion response to exam maneuvers. COORDINATION - remains intact. PSYCH - Alert and Oriented x4, Attentive and appropriate, constitutionally normal, displays normal mood and affect per situation, answered questions appropriately during examination, demonstrated appropriate attention during discussion, demonstrated appropriate cognitive reasoning and understanding of the medical condition by asking appropriate questions regarding the diagnosis and risks/benefits/alternatives of treatment modalities. No obvious deficits in memory, reasoning, or intellect. Thoracic: SKIN - No rashes or bruising in the area of the patient s pain. LYMPH NODES - demonstrate no obvious enlargement. COORDINATION remains intact. EXTREMITIES - Extremities are warm, with minimal edema and palpable pulses. No Significant tenderness to palpation noted in the thoracic spine and paraspinal musculature. Mild pain is elicited with flexion, extension, and lateral rotation of the thoracic spine. Range of motion is not diminished with these motions. Facet palpation is negative for significant pain and facet loading maneuvers elicit only mild pain that is not concordant with the patient s normal pain complaints. STRENGTH - noted to be 5 out of 5 all muscle groups bilateral upper and lower extremities. No notable atrophy, fasciculations or spasm. SENSORY - No notable sensory deficits in the thoracic dermatomal distributions to touch or pinprick Assessment/Treatment Plan: Yani was seen today for back pain and extremity pain. Diagnoses and all orders for this visit: Thoracic spondylosis without myelopathy Monitor Follow up PRN The medications prescribed have been reviewed for medication interactions/contraindications and/or for upcoming procedures: continue current medication regimen without any changes. DISCUSSION: Treatment options discussed with patient and all questions answered to patient's satisfaction. Discussed the rules and regulations surrounding prescription of opioids and compliance at length. Failure to follow the rules and regulation will result in tapering and discontinuation of medications if applicable. Prescribed medication that requires intensive monitoring for toxicity We do not currently prescribe any controlled substance from this practice. Treatment plans discussed but not opted for at this time: Thoracic spine MRI. Pain is under adequate control. At this time it does appear that the patient s pain is under adequate control with conservative care. It is felt that we should continue this approach and continue to monitor these symptoms and address them again in the future if they become more problematic. This approach was discussed with the patient and they are in agreement. The spine model was demonstrated and Xray was reviewed and used to explain the condition. OARRS: Reviewed. Scribe Statement: Nina Marti CNA, scribed for and in the presence of REJI RAMIREZ who performed the above service. Nina Wells CNA 01/13/25 1207 REJI Ramirez 01/13/25 1433 documented in this encounter [employer] 12-30-2024 History of Present illness Narrative Images from the original note were not included. [address] [place] [address] Patient: Yani Joseph Date of : 1960 Encounter Date: 12/30/2024 History of Present Illness: The patient is a 64 y.o. female, an established patient, and is here for Chief Complaint Patient presents with back pain/ was at [facility] . HPI Patient is here for an ER follow-up from the [facility] on December 13 2024 for thoracic back pain. She states her pain started on a Friday and then by Friday it was excruciating and she has not had any change in activity or trauma that occurred. Patient had extensive workup in the ER that was reviewed with negative troponins, EKG showing normal sinus rhythm, a negative CTA of chest and unremarkable chest x-ray. She was given muscle relaxants and Tylenol with codeine. Patient states her pain today is not as severe as it was in the ER but it is still bothering her on a daily basis. She has been taking Tylenol and Motrin and the prescription medications given in the ER. The medications help some but she is bothered by the pain over 2 weeks later. Patient denies any numbness or tingling but she states the pain does radiate to her left shoulder and left elbow at times. Patient is able to sleep. Problem List Items Addressed This Visit None Visit Diagnoses Mid back pain on left side - Primary Relevant Orders [facility] - [place], [place] X-ray spine thoracic 3 views Neck pain Relevant Orders X-ray spine cervical 3 views or less Past Medical, Family, and Social History Update: The following portions of the patient's history were reviewed and updated as appropriate: allergies, current medications, past family history, past medical history, past social history, past surgical history and problem list. Past Medical History: Diagnosis Date Asthma Hypertension Kidney stones 02/02/2024 Pulmonary embolism ([facility]) Shortness of breath Sinusitis chronic, frontal 02/2024 Visual impairment Past Surgical History: Procedure Laterality Date APPENDECTOMY CHOLECYSTECTOMY COLONOSCOPY DIAGNOSTIC / SCREENING N/A 10/20/2024 Performed by Mariusz Simon DO at [facility] HIATAL HERNIA REPAIR HYSTERECTOMY 1993 complete KNEE ARTHROSCOPY W/ DEBRIDEMENT Left 2013 OOPHORECTOMY Bilateral 1994 SINUS SURGERY 06/17/2024 Current Outpatient Medications Medication Sig Dispense Refill acetaminophen-codeine (TYLENOL #3) 300-30 mg per tablet Take 1 tablet by mouth every 6 (six) hours as needed. alendronate (FOSAMAX) 70 mg tablet TAKE 1 TABLET BY MOUTH EVERY 7 (SEVEN) days in IN THE MORNING WITH water ON AN EMPTY STOMACH and nothing else BY MOUTH and remain upright for 30 mins 4 tablet 11 aspirin 81 mg Take 1 tablet (81 mg total) by mouth in the morning. cyproheptadine (PERIACTIN) 4 mg tablet TAKE 1 TABLET BY MOUTH NIGHTLY NEEDED for allergies 90 tablet 1 losartan (COZAAR) 50 mg tablet TAKE 1 TABLET BY MOUTH DAILY 90 tablet 1 methIMAzole (TAPAZOLE) 10 mg tablet Take 1 tablet (10 mg total) by mouth 3 (three) times a week. montelukast (SINGULAIR) 10 mg tablet TAKE 1 TABLET BY MOUTH IN THE EVENING 90 tablet 2 SYMBICORT 160-4.5 mcg/actuation inhaler INHALE 2 PUFFS BY MOUTH TWICE DAILY 10.2 g 5 baclofen (LIORESAL) 10 mg tablet Take 1 tablet (10 mg total) by mouth nightly as needed for muscle spasms. 30 tablet 1 No current facility-administered medications for this visit. Facility-Administered Medications Ordered in Other Visits Medication Dose Route Frequency Provider Last Rate Last Admin sodium chloride 0.9 % flush 3 mL 3 mL intravenous PRN Mariusz Simon DO sodium chloride 0.9 % flush 3 mL 3 mL intravenous Q12H [facility] Mariusz Simon DO (All medications reviewed and updated by provider since last office visit or hospitalization) Allergies: Patient has no known allergies. Tobacco History: Social History Tobacco Use Smoking Status Former Current packs/day: 0.00 Average packs/day: 0.2 packs/day for 18.0 years (2.7 ttl pk-yrs) Types: Cigarettes Start date: 1986 Quit date: 2004 Years since quittin.3 Smokeless Tobacco Never (If patient a smoker, smoking cessation counseling offered) Social History: Social History Substance and Sexual Activity Alcohol Use Not Currently Review of Systems: Review of Systems Constitutional: Positive for activity change. Negative for appetite change, fever and unexpected weight change. Respiratory: Negative. Cardiovascular: Negative. Musculoskeletal: Positive for back pain, myalgias and neck pain. Negative for gait problem. Neurological: Negative. Psychiatric/Behavioral: Negative. Physical Exam: BP 130/82 (BP Site: Left Arm, BP Postition: Sitting, BP CUFF SIZE: S (7-9 inches)) Pulse 84 Temp 36.7 C (98.1 F) (Tympanic) Resp 18 Ht 165.1 cm (5' 5 ) Wt 86.2 kg (190 lb) SpO2 97% BMI 31.62 kg/m Physical Exam Vitals reviewed. Constitutional: Appearance: Normal appearance. She is obese. HENT: Head: Normocephalic and atraumatic. Musculoskeletal: Cervical back: Tenderness present. No rigidity or bony tenderness. No pain with movement. Normal range of motion. Thoracic back: Tenderness present. No swelling, spasms or bony tenderness. Normal range of motion. No scoliosis. Back: Comments: Pain in area marked above Neurological: Mental Status: She is alert. Sensory: Sensation is intact. Motor: Motor function is intact. No weakness. Assessment and Plan: Yani was seen today for back pain/ was at [facility]. Diagnoses and all orders for this visit: Mid back pain on left side - [facility] - [place], [place]; Future - X-ray spine thoracic 3 views; Future Neck pain - X-ray spine cervical 3 views or less; Future Other orders - baclofen (LIORESAL) 10 mg tablet; Take 1 tablet (10 mg total) by mouth nightly as needed for muscle spasms. Follow-up: Patient does have history of osteoporosis in 2022 on DEXA and has been on Fosamax for the last year and a half. We will check thoracic and cervical x-rays due to high fracture risk. Patient may add lidocaine patches to area of pain and we will switch muscle relaxant to baclofen. She may continue the Tylenol and Motrin [id number] and we will add a pain management referral. Patient declined physical therapy at this time. Patient was advised to use her CPAP mask when she is taking muscle relaxants especially. She states she is not the best at wearing her CPAP every night. Follow-up for routine visit when due. MALI ESPINOZA APRN-CNP 12/30/24 1234 documented in this encounter [facility] 12-08-2024 History of Present illness Narrative Sinus & Skull Base Surgery Chief Complaint: 1. Chronic sinusitis with nasal polyposis s/p bilateral sinus surgery 06/17/2024 2. Nasal airway obstruction s/p septoplasty, bilateral submucosal inferior turbinate reductions 06/17/2024 3. Decreased sense of smell 4. Asthma, allergic rhinitis 5. Obstructive sleep apnea on CPAP History Of Present Illness: Yani Joseph presents since last being seen 08/11/2024. Main Symptoms: Patient does not have anterior nasal drainage. Patient does not have posterior nasal drainage. Patient does not have nasal airway obstruction. Patient does not have facial pain. Patient does not have facial pressure. Patient has decreased sense of smell. Decreased 70 % of normal. Associated Symptoms: Patient does not have headaches. Patient does not have throat clearing. Patient does not have coughing. Patient does not have dysphonia. Patient does not have nasal bleeding. Medications currently on for sinonasal symptoms: Mometasone rinses Qday Active Problems: Patient Active Problem List Diagnosis Deviated nasal septum Chronic ethmoidal sinusitis HTN (hypertension) Asthma LILO (obstructive sleep apnea) History of migraine headaches Nephrolithiasis Gastroesophageal reflux disease Hiatal hernia Hyperthyroidism Past Medical History: She has no past medical history on file. Surgical History: She has a past surgical history that includes Cholecystectomy; Kidney stone surgery; Colonoscopy; Upper gastrointestinal endoscopy; Hysterectomy; Oophorectomy; and Hernia repair. Family History: No family history on file. Social History: She reports that she has quit smoking. Her smoking use included cigarettes. She has never used smokeless tobacco. She reports that she does not currently use alcohol. She reports that she does not use drugs. Allergies: Patient has no known allergies. Current Meds: Current Outpatient Medications: alendronate (Fosamax) 70 mg tablet, Take 1 tablet (70 mg) by mouth once a week., Disp: , Rfl: aspirin 81 mg EC tablet, 1 (one) time each day at the same time, Disp: , Rfl: budesonide-formoteroL (Symbicort) 160-4.5 mcg/actuation inhaler, Inhale 2 puffs twice a day., Disp: , Rfl: cyproheptadine (Periactin) 4 mg tablet, Take 1 tablet (4 mg) by mouth once daily at bedtime., Disp: , Rfl: fluticasone (Flonase Sensimist) 27.5 mcg/actuation nasal spray, Administer 2 sprays into each nostril once daily. (Patient not taking: Reported on 08/11/2024), Disp: , Rfl: losartan (Cozaar) 50 mg tablet, Take 1 tablet (50 mg) by mouth once daily. (Patient not taking: Reported on 08/11/2024), Disp: , Rfl: methIMAzole (Tapazole) 10 mg tablet, 1 tablet (10 mg) 3 (three) times a week. Friday, Friday, Friday, Disp: , Rfl: mometasone furoate, bulk, 100 % powder, Compound 2 mg capsule to be added to sinus rinse twice daily., Disp: 90 g, Rfl: 3 montelukast (Singulair) 10 mg tablet, Take 1 tablet (10 mg) by mouth once daily at bedtime., Disp: , Rfl: oxymetazoline (Afrin, oxymetazoline,) 0.05 % nasal spray, Administer 2 sprays into each nostril every 6 hours if needed (bleeding). Do not use for more than 3 days., Disp: 30 mL, Rfl: 0 predniSONE (Deltasone) 10 mg tablet, 30mg PO Qday for 3 days, 20mg PO Qday for 3 days, 10 mg PO Qday for 4 days, Disp: 19 tablet, Rfl: 0 traMADol (Ultram) 50 mg tablet, Take 1 tablet (50 mg) by mouth every 6 hours if needed for severe pain (7 - 10)., Disp: 16 tablet, Rfl: 0 Vitals: Visit Vitals Ht 1.651 m (5' 5 ) Wt 87.5 kg (192 lb 12.8 oz) BMI 32.08 kg/m OB Status Postmenopausal Smoking Status Former BSA 2 m Physical Exam: Nose: On external exam there are neither lesions nor asymmetry of the nasal tip/dorsum. On anterior rhinoscopy, visualization posteriorly is limited on anterior examination. For this reason, to adequately evaluate posteriorly for masses, source of epistaxis, polypoid disease, debridement, and/or signs of infections, nasal endoscopy is indicated. (Please see procedure below.) SINONASAL ENDOSCOPY (CPT 62339): To better evaluate the patient's symptoms, sinonasal endoscopy is indicated. After discussion of risks and benefits, and topical decongestion and anesthesia, an endoscope was used to perform nasal endoscopy on each side. A time out identifying the patient, the procedure, the location of the procedure and any concerns was performed prior to beginning the procedure. Findings: Examination of the right nasal cavity revealed a patent maxillary and ethmoid cavity. Examination of the left nasal cavity revealed a patent maxillary and ethmoid. There was no pus or polyps at either middle meatus or sphenoethmoid recess. There was some polyp changes within the patent sinuses but nothing extending into the nasal cavities. Provider Impressions: 1. Chronic sinusitis with nasal polyposis s/p bilateral sinus surgery 06/17/2024 2. Nasal airway obstruction s/p septoplasty, bilateral submucosal inferior turbinate reductions 06/17/2024 3. Decreased sense of smell 4. Asthma, allergic rhinitis 5. Obstructive sleep apnea on CPAP Discussion: Yani Joseph and I discussed her exam and symptoms. I recommended continuation of mometasone once per day and follow-up with me in about 6 months. She was amenable to this and all questions were answered. Scribe Attestation By signing my name below, I, Abdias Rory, Escobaribe, attest that this documentation has been prepared under the direction and in the presence of Toni Bansal MD. Signature: Toni Bansal MD documented in this encounter [facility] Work Phone: 10-19-2024 Nurse Note Preoperative Education Checklist- General Surgery date: 10/20/24 Surgery time: 10a Arrival time: 9a 1. Bring a photo ID and your insurance card with you the day of surgery. You will check in at the main lobby of the [facility]- registration desk is straight ahead as soon as you walk in. Tell them you are here for surgery. 2. If you have a Living Will/Durable Power of Shoe Singer for Health Care that is not on file here, please bring a copy the day of surgery. 3. Please shower/bathe the night before surgery with the provided soap or wipes. Do not shower the morning of surgery- you will do use wipes when you arrive here at the hospital before getting into your surgical gown. Do not shave the area of your procedure for 2 days prior to your surgery. 4. NO powder, lotion, perfume/cologne, aftershave, make-up, deodorant, or hair products after you have bathed. 5. NO nail pakistani/acrylic on at least one finger. If you are having a hand, wrist or foot surgery then all nail pakistani and artificial/acrylic nails must be removed from that hand or foot. 6. Avoid ALL Aspirin and non-steroidal anti-inflammatory drugs and certain vitamins (Ibuprofen, Advil, Aleve, Excedrin, Meloxicam, Celebrex, fish/krill oil, etc.) for 7 days prior to surgery as instructed by your surgeon and/or your prescribing doctor. Tylenol IS ALLOWED. If you are on Ticlid, Xarelto, Eliquis, Pradaxa, Plavix or Coumadin, please check with your prescribing doctor for instructions for when to stop them. 7. If you use an inhaler, continue to use it routinely. 8. Nothing to eat or drink (not even water, gum, mints, or hard candy!) AFTER midnight prior to your surgery. 9. Take only medications that you are instructed to on the morning of surgery with a TINY SIP OF WATER. 10. Choose a responsible adult that will be able to drive you home when you are discharged from your hospital stay for your surgery and can stay with you in your home for 24 hours after your procedure. You must NOT drive any vehicle or operate any machinery for 24 hours after surgery. 11. When you dress for your appointment, please wear loose fitting clothing that is appropriate to accommodate your surgical area procedure. BRING WITH YOU ANY DEVICES YOU MAY NEED: SUGAR hose, ice machine, sling/swath, brace or special shoe, oversized zip-up or button up shirt, CPAP machine if staying overnight. 12. Do NOT wear jewelry, watches, or any piercings or metal for surgery- leave these valuables and money at home. 13. Do NOT wear contact lenses for surgery- glasses are okay if needed. 14. The anesthesiologist will talk with you the day of surgery and will ask you to sign a Consent Form. 15. Refrain from smoking or any type of tobacco use for at least 8 hours and marijuana for 24 hours prior to arrival for your surgery. 16. If a GREEN BLOOD band is given to you, please bring it with you for the day of surgery. 17. Notify your surgeon if you develop any illness before your surgery. 18. If you are staying overnight, please DO NOT BRING your home medications with you. 19. If you have any questions prior to surgery, please call the Preadmission Testing office at [phone], Mon.-Fri. 7 a.m.-3 p.m. Leave a voicemail if needed. Pre-Surgery Instructions: Medication Instructions alendronate (FOSAMAX) 70 mg tablet Stop taking 0 days prior to procedure losartan (COZAAR) 50 mg tablet Take morning of procedure montelukast (SINGULAIR) 10 mg tablet Stop taking 0 days prior to procedure SYMBICORT 160-4.5 mcg/actuation inhaler Take morning of procedure aspirin 81 mg Check with prescribing doctor for instructions cyproheptadine (PERIACTIN) 4 mg tablet Stop taking 0 days prior to procedure methIMAzole (TAPAZOLE) 10 mg tablet Stop taking 0 days prior [facility]-19[facility]24 Miscellaneous Notes Preoperative Education Checklist- General Surgery date: 10/20/24 Surgery time: 10a Arrival time: 9a 1. Bring a photo ID and your insurance card with you the day of surgery. You will check in at the main lobby of the [facility]- registration desk is straight ahead as soon as you walk in. Tell them you are here for surgery. 2. If you have a Living Will/Durable Power of Shoe Singer for Health Care that is not on file here, please bring a copy the day of surgery. 3. Please shower/bathe the night before surgery with the provided soap or wipes. Do not shower the morning of surgery- you will do use wipes when you arrive here at the hospital before getting into your surgical gown. Do not shave the area of your procedure for 2 days prior to your surgery. 4. NO powder, lotion, perfume/cologne, aftershave, make-up, deodorant, or hair products after you have bathed. 5. NO nail pakistani/acrylic on at least one finger. If you are having a hand, wrist or foot surgery then all nail pakistani and artificial/acrylic nails must be removed from that hand or foot. 6. Avoid ALL Aspirin and non-steroidal anti-inflammatory drugs and certain vitamins (Ibuprofen, Advil, Aleve, Excedrin, Meloxicam, Celebrex, fish/krill oil, etc.) for 7 days prior to surgery as instructed by your surgeon and/or your prescribing doctor. Tylenol IS ALLOWED. If you are on Ticlid, Xarelto, Eliquis, Pradaxa, Plavix or Coumadin, please check with your prescribing doctor for instructions for when to stop them. 7. If you use an inhaler, continue to use it routinely. 8. Nothing to eat or drink (not even water, gum, mints, or hard candy!) AFTER midnight prior to your surgery. 9. Take only medications that you are instructed to on the morning of surgery with a TINY SIP OF WATER. 10. Choose a responsible adult that will be able to drive you home when you are discharged from your hospital stay for your surgery and can stay with you in your home for 24 hours after your procedure. You must NOT drive any vehicle or operate any machinery for 24 hours after surgery. 11. When you dress for your appointment, please wear loose fitting clothing that is appropriate to accommodate your surgical area procedure. BRING WITH YOU ANY DEVICES YOU MAY NEED: SUGAR hose, ice machine, sling/swath, brace or special shoe, oversized zip-up or button up shirt, CPAP machine if staying overnight. 12. Do NOT wear jewelry, watches, or any piercings or metal for surgery- leave these valuables and money at home. 13. Do NOT wear contact lenses for surgery- glasses are okay if needed. 14. The anesthesiologist will talk with you the day of surgery and will ask you to sign a Consent Form. 15. Refrain from smoking or any type of tobacco use for at least 8 hours and marijuana for 24 hours prior to arrival for your surgery. 16. If a GREEN BLOOD band is given to you, please bring it with you for the day of surgery. 17. Notify your surgeon if you develop any illness before your surgery. 18. If you are staying overnight, please DO NOT BRING your home medications with you. 19. If you have any questions prior to surgery, please call the Preadmission Testing office at [phone], Mon.-Fri. 7 a.m.-3 p.m. Leave a voicemail if needed. Pre-Surgery Instructions: Medication Instructions alendronate (FOSAMAX) 70 mg tablet Stop taking 0 days prior to procedure losartan (COZAAR) 50 mg tablet Take morning of procedure montelukast (SINGULAIR) 10 mg tablet Stop taking 0 days prior to procedure SYMBICORT 160-4.5 mcg/actuation inhaler Take morning of procedure aspirin 81 mg Check with prescribing doctor for instructions cyproheptadine (PERIACTIN) 4 mg tablet Stop taking 0 days prior to procedure methIMAzole (TAPAZOLE) 10 mg tablet Stop taking 0 days prior to procedure documented in this encounter [facility] 08-11-2024 History of Present illness Narrative Sinus & Skull Base Surgery Chief Complaint: 1. Chronic sinusitis with nasal polyposis s/p bilateral sinus surgery 06/17/2024 2. Nasal airway obstruction s/p septoplasty, bilateral submucosal inferior turbinate reductions 06/17/2024 3. Rhinorrhea 4. Facial pain/pressure, headaches, migraines 5. Decreased sense of smell 6. Throat clearing, coughing, dysphonia 7. Asthma, allergic rhinitis 8. Obstructive sleep apnea on CPAP History Of Present Illness: Yani Joseph presents since last being seen June 30, 2024. She has been steadily improving since her last evaluation and her sense of smell is about 75% of what she would consider to be normal. She is using mometasone rinses twice per day. Main Symptoms: Patient does not have anterior nasal drainage. Patient does not have posterior nasal drainage. Patient does not have nasal airway obstruction. Patient does not have facial pain. Patient does not have facial pressure. Patient has decreased sense of smell. Decreased 75 % of normal. Associated Symptoms: Patient does not have headaches. Patient does not have throat clearing. Patient does not have coughing. Patient does not have dysphonia. Patient does not have nasal bleeding. Medications currently on for sinonasal symptoms: Mometasone rinses BID Active Problems: Patient Active Problem List Diagnosis Deviated nasal septum Chronic ethmoidal sinusitis HTN (hypertension) Asthma LILO (obstructive sleep apnea) History of migraine headaches Nephrolithiasis Gastroesophageal reflux disease Hiatal hernia Hyperthyroidism Past Medical History: She has no past medical history on file. Surgical History: She has a past surgical history that includes Cholecystectomy; Kidney stone surgery; Colonoscopy; Upper gastrointestinal endoscopy; Hysterectomy; Oophorectomy; and Hernia repair. Family History: No family history on file. Social History: She reports that she has quit smoking. Her smoking use included cigarettes. She has never used smokeless tobacco. She reports that she does not currently use alcohol. She reports that she does not use drugs. Allergies: Patient has no known allergies. Current Meds: Current Outpatient Medications: alendronate (Fosamax) 70 mg tablet, Take 1 tablet (70 mg) by mouth once a week., Disp: , Rfl: aspirin 81 mg EC tablet, 1 (one) time each day at the same time, Disp: , Rfl: budesonide-formoteroL (Symbicort) 160-4.5 mcg/actuation inhaler, Inhale 2 puffs twice a day., Disp: , Rfl: cyproheptadine (Periactin) 4 mg tablet, Take 1 tablet (4 mg) by mouth once daily at bedtime., Disp: , Rfl: fluticasone (Flonase Sensimist) 27.5 mcg/actuation nasal spray, Administer 2 sprays into each nostril once daily. (Patient not taking: Reported on 06/30/2024), Disp: , Rfl: losartan (Cozaar) 50 mg tablet, Take 1 tablet (50 mg) by mouth once daily. (Patient not taking: Reported on 06/30/2024), Disp: , Rfl: methIMAzole (Tapazole) 10 mg tablet, 1 tablet (10 mg) 3 (three) times a week. Friday, Friday, Friday, Disp: , Rfl: mometasone furoate, bulk, 100 % powder, Compound 2 mg capsule to be added to sinus rinse twice daily., Disp: 90 g, Rfl: 3 montelukast (Singulair) 10 mg tablet, Take 1 tablet (10 mg) by mouth once daily at bedtime., Disp: , Rfl: oxymetazoline (Afrin, oxymetazoline,) 0.05 % nasal spray, Administer 2 sprays into each nostril every 6 hours if needed (bleeding). Do not use for more than 3 days., Disp: 30 mL, Rfl: 0 predniSONE (Deltasone) 10 mg tablet, 30mg PO Qday for 3 days, 20mg PO Qday for 3 days, 10 mg PO Qday for 4 days, Disp: 19 tablet, Rfl: 0 traMADol (Ultram) 50 mg tablet, Take 1 tablet (50 mg) by mouth every 6 hours if needed for severe pain (7 - 10)., Disp: 16 tablet, Rfl: 0 Vitals: Visit Vitals OB Status Postmenopausal Smoking Status Former Physical Exam: Nose: On external exam there are neither lesions nor asymmetry of the nasal tip/dorsum. On anterior rhinoscopy, visualization posteriorly is limited on anterior examination. For this reason, to adequately evaluate posteriorly for masses, source of epistaxis, polypoid disease, debridement, and/or signs of infections, nasal endoscopy is indicated. (Please see procedure below.) SINONASAL ENDOSCOPY (CPT 50354-43): To better evaluate the patient's symptoms, sinonasal endoscopy is indicated. After discussion of risks and benefits, and topical decongestion and anesthesia, an endoscope was used to perform nasal endoscopy on each side. A time out identifying the patient, the procedure, the location of the procedure and any concerns was performed prior to beginning the procedure. Findings: Examination of the right nasal cavity revealed no significant mucosal edema. The right maxillary and right ethmoid cavity were widely patent. There was scarring at the sphenoid face but there were several small defects likely leading into the sphenoid. The right frontal drainage pathway was contracted but I saw drainage pathway. Examination of the left nasal cavity revealed a patent maxillary, ethmoid without significant mucosal edema. The sphenoid was patent but was contracted. The left frontal appeared patent. No pus or polyps at either middle meatus or sphenoethmoid recess. Provider Impressions: 1. Chronic sinusitis with nasal polyposis s/p bilateral sinus surgery 06/17/2024 2. Nasal airway obstruction s/p septoplasty, bilateral submucosal inferior turbinate reductions 06/17/2024 3. Decreased sense of smell 4. Asthma, allergic rhinitis 5. Obstructive sleep apnea on CPAP Discussion: Yani Joseph appeared very well on examination today. We discussed the findings on the right-hand side and I recommended observation and continuation of the mometasone. I suggested using it twice a day moving forward until her sense of smell stabilizes and at that time she could certainly consider going to once per day. I recommended follow-up with me in about 4 months. All questions were answered. Scribe Attestation By signing my name below, I, Marcello Espinal, attest that this documentation has been prepared under the direction and in the presence of Toni Bansal MD. Signature: Toni Bansal MD documented in this encounter [facility] Work Phone: 08-03-2024 Miscellaneous Notes Please let patient know that she continues to have obstructive sleep apnea despite her sinus surgery. I would recommend that she continue with her CPAP therapy. Read note to pt. Pt verbalizes understanding. documented in this encounter [facility] 08-03-2024 Telephone encounter Note Please let patient know that she continues to have obstructive sleep apnea despite her sinus surgery. I would recommend that she continue with her CPAP therapy. [facility] 08-03-2024 Telephone encounter Note Read note to pt. Pt verbalizes understanding. [facility] 08-02-2024 Miscellaneous Notes Home sleep testing interpreted ordered by PCP MALI ESPINOZA for PPG read/follow Positive for LILO, please see full report [place], please offer new patient appointment with sleep provider Home sleep apnea test on 07/28/2024 (THADDEUS (3%)=15.4 events/hour; THADDEUS (4%)=6.7 events/hour; Jerod SpO2=84.0%; Ftbchw=716.0 lbs; BMI=30.7 kg/m2) DIAGNOSIS: Obstructive Sleep Apnea (G47.33) COMMENTS: This home sleep apnea test demonstrates obstructive sleep apnea. Please note that home sleep testing may underestimate sleep apnea severity due to lack of EEG monitoring. TREATMENT CONSIDERATIONS: A trial of nCPAP therapy is recommended. documented in this encounter [email or web address] 08-02-2024 Telephone encounter Note Home sleep testing interpreted ordered by PCP MALI ESPINOZA for PPG read/follow Positive for LILO, please see full report [place], please offer new patient appointment with sleep provider Home sleep apnea test on 07/28/2024 (TAHDDEUS (3%)=15.4 events/hour; THADDEUS (4%)=6.7 events/hour; Jerod SpO2=84.0%; Moikuc=685.0 lbs; BMI=30.7 kg/m2) DIAGNOSIS: Obstructive Sleep Apnea (G47.33) COMMENTS: This home sleep apnea test demonstrates obstructive sleep apnea. Please note that home sleep testing may underestimate sleep apnea severity due to lack of EEG monitoring. TREATMENT CONSIDERATIONS: A trial of nCPAP therapy is recommended. [facility] Work Phone: 07-07-2024 Miscellaneous Notes 06/24 Order received 07/07 Called PT LM to schedule sleep study. Patient is busy at this time and will call back to schedule HST Order and 06/24/23 Valente Peters Epic Notes Order Deferred documented in this encounter [email or web address] 07-07-2024 Telephone encounter Note 06/24 Order received 07/07 Called PT LM to schedule sleep study. Patient is busy at this time and will call back to schedule HST Order and 06/24/23 Valente Peters Epic Notes Order Deferred [email or web address] 06-30-2024 History of Present illness Narrative Sinus & Skull Base Surgery Chief Complaint: 1. Chronic sinusitis with nasal polyposis s/p bilateral sinus surgery 06/17/2024 2. Nasal airway obstruction s/p septoplasty, bilateral submucosal inferior turbinate reductions 06/17/2024 3. Rhinorrhea 4. Facial pain/pressure, headaches, migraines 5. Decreased sense of smell 6. Throat clearing, coughing, dysphonia 7. Asthma, allergic rhinitis 8. Obstructive sleep apnea on CPAP History Of Present Illness: Yain Joseph presents for her second postoperative evaluation since undergoing bilateral sinus surgery on June 17, 2024. She has been doing well and using saline rinses 3 times a day. She denies significant nasal bleeding. Active Problems: Patient Active Problem List Diagnosis Deviated nasal septum Chronic ethmoidal sinusitis HTN (hypertension) Asthma LILO (obstructive sleep apnea) History of migraine headaches Nephrolithiasis Gastroesophageal reflux disease Hiatal hernia Hyperthyroidism Past Medical History: She has no past medical history on file. Surgical History: She has a past surgical history that includes Cholecystectomy; Kidney stone surgery; Colonoscopy; Upper gastrointestinal endoscopy; Hysterectomy; Oophorectomy; and Hernia repair. Family History: No family history on file. Social History: She reports that she has quit smoking. Her smoking use included cigarettes. She has never used smokeless tobacco. She reports that she does not currently use alcohol. She reports that she does not use drugs. Allergies: Patient has no known allergies. Current Meds: Current Outpatient Medications: alendronate (Fosamax) 70 mg tablet, Take 1 tablet (70 mg) by mouth once a week., Disp: , Rfl: aspirin 81 mg EC tablet, 1 (one) time each day at the same time, Disp: , Rfl: budesonide-formoteroL (Symbicort) 160-4.5 mcg/actuation inhaler, Inhale 2 puffs twice a day., Disp: , Rfl: cyproheptadine (Periactin) 4 mg tablet, Take 1 tablet (4 mg) by mouth once daily at bedtime., Disp: , Rfl: methIMAzole (Tapazole) 10 mg tablet, 1 tablet (10 mg) 3 (three) times a week. Friday, Friday, Friday, Disp: , Rfl: montelukast (Singulair) 10 mg tablet, Take 1 tablet (10 mg) by mouth once daily at bedtime., Disp: , Rfl: oxymetazoline (Afrin, oxymetazoline,) 0.05 % nasal spray, Administer 2 sprays into each nostril every 6 hours if needed (bleeding). Do not use for more than 3 days., Disp: 30 mL, Rfl: 0 traMADol (Ultram) 50 mg tablet, Take 1 tablet (50 mg) by mouth every 6 hours if needed for severe pain (7 - 10)., Disp: 16 tablet, Rfl: 0 fluticasone (Flonase Sensimist) 27.5 mcg/actuation nasal spray, Administer 2 sprays into each nostril once daily. (Patient not taking: Reported on 06/30/2024), Disp: , Rfl: losartan (Cozaar) 50 mg tablet, Take 1 tablet (50 mg) by mouth once daily. (Patient not taking: Reported on 06/30/2024), Disp: , Rfl: predniSONE (Deltasone) 10 mg tablet, 30mg PO Qday for 3 days, 20mg PO Qday for 3 days, 10 mg PO Qday for 4 days, Disp: 19 tablet, Rfl: 0 Vitals: Visit Vitals Ht 1.651 m (5' 5 ) Wt 84.9 kg (187 lb 1.6 oz) BMI 31.14 kg/m OB Status Postmenopausal Smoking Status Former BSA 1.97 m Physical Exam: Nose: On external exam there are neither lesions nor asymmetry of the nasal tip/dorsum. On anterior rhinoscopy, visualization posteriorly is limited on anterior examination. For this reason, to adequately evaluate posteriorly for masses, source of epistaxis, polypoid disease, debridement, and/or signs of infections, nasal endoscopy is indicated. (Please see procedure below.) SINONASAL ENDOSCOPY WITH DEBRIDEMENT (CPT 46708-97-56): Due to the patient's chronic sinusitis/chronic rhinitis, sinonasal endoscopy with debridement is indicated. After discussion of risks and benefits, and topical decongestion and anesthesia, an endoscope was used to perform nasal endoscopy with debridement. A timeout identifying the patient, the procedure, and any concerns was performed prior to beginning the procedure. Findings: Examination of the right nasal cavity revealed a midline septum. The right maxillary sinus appeared patent with normal appearing mucosa. Crust, clot, and debris was evacuated from the ethmoid cavity and the space was widely patent. The right sphenoidotomy had granulation tissue within it that I was able to remove and cannulate the sinus itself. The right sphenoid was hypoplastic compared to the left. Within the right frontal drainage pathway there was granulation tissue and clot that was evacuated. I was able to enter the right frontal through the propel stent with the frontal sinus seeker. She was sensitive to manipulation through the frontal so some clot and debris was left within the frontal drainage pathway. Examination of the left nasal cavity revealed a widely patent maxillary sinus and ethmoid cavity without significant debris. Crusting was evacuated from the left sphenoid itself with a suction and alligator. The left frontal was patent and there was some granulation tissue anterior and posterior to the propel stent. Debris was removed through the propel stent with an angled suction. The left frontal was patent. She tolerated the procedure well. Complications: None Estimated blood loss: About 2 ml Provider Impressions: 1. Chronic sinusitis with nasal polyposis s/p bilateral sinus surgery 06/17/2024 2. Nasal airway obstruction s/p septoplasty, bilateral submucosal inferior turbinate reductions 06/17/2024 3. Rhinorrhea 4. Facial pain/pressure, headaches, migraines 5. Decreased sense of smell 6. Throat clearing, coughing, dysphonia 7. Asthma, allergic rhinitis 8. Obstructive sleep apnea on CPAP Discussion: Yani Joseph and I discussed her exam and symptoms. We spent some time today discussing the right sphenoid and right frontal and that there was granulation tissue within each drainage pathway but that each were patent today. I recommended a 10-day prednisone taper and this was prescribed and I asked her to initiate this starting today. I also recommended mometasone 2 mg within rinses on a twice daily basis. I suggested using this consistently for the next few months and then we can determine a long-term plan based on her symptoms at her exam. I asked her to follow-up with me in 4 to 6 weeks. All questions were answered. Scribe Attestation By signing my name below, I, Marcello Espinal, attest that this documentation has been prepared under the direction and in the presence of Toni Bansal MD. Signature: Toni Bansal MD documented in this encounter [facility] Work Phone: 06-29-2024 Miscellaneous Notes ----- Message from MALI Aguilar sent at 06/29/2024 8:53 AM EDT ----- Will you please make sure her home sleep study order went to [facility] sleep center. Was not informed she has sleep study or where it needed sent, will get sent over done documented in this encounter [facility] 06-29-2024 Telephone encounter Note ----- Message from MALI Aguilar sent at 06/29/2024 8:53 AM EDT ----- Will you please make sure her home sleep study order went to [facility] sleep center. [facility] 06-29-2024 Telephone encounter Note Was not informed she has sleep study or where it needed sent, will get sent over [facility] 06-29-2024 Telephone encounter Note done [facility] 06-24-2024 History of Present illness Narrative [address] [place] [address] Patient: Yani Joseph Date of : 1960 Encounter Date: 06/24/2024 History of Present Illness: The patient is a 64 y.o. female, an established patient, and is here for Chief Complaint Patient presents with Weight Check . HPI Patient is here for weight check on Adipex. She has lost 4 lb in the last 1 month and 7 lb since March. She has been on Adipex for the last 6 months. She did stop the Adipex before her sinus surgery on June 17 and has been out of the medication since. She did not have any withdrawal or side effects from stopping abruptly. Patient has not worn her CPAP since March and would like to be retested with a sleep study since after her sinus surgery- she feels the surgery may have resolved her sleep apnea issues since she is able to now breathe out of her nose. Problem List Items Addressed This Visit Respiratory LILO (obstructive sleep apnea) - Primary Relevant Orders Home sleep study Other Visit Diagnoses Influenza vaccination administered at current visit Relevant Orders FLU VACCINE TS (6MOS UP)(PF) 45 MCG(15MCG X3)/0.5 ML IM SYRINGE Class 1 obesity due to excess calories with serious comorbidity and body mass index (BMI) of 33.0 to 33.9 in adult Relevant Medications phentermine (ADIPEX-P) 37.5 mg tablet Past Medical, Family, and Social History Update: The following portions of the patient's history were reviewed and updated as appropriate: allergies, current medications, past family history, past medical history, past social history, past surgical history and problem list. Past Medical History: Diagnosis Date Asthma Kidney stones 02/02/2024 Pulmonary embolism ([facility]) Shortness of breath Sinusitis chronic, frontal 02/2024 Past Surgical History: Procedure Laterality Date APPENDECTOMY CHOLECYSTECTOMY HIATAL HERNIA REPAIR HYSTERECTOMY 1993 complete KNEE ARTHROSCOPY W/ DEBRIDEMENT Left 2013 OOPHORECTOMY Bilateral 1993 SINUS SURGERY 06/17/2024 Current Outpatient Medications Medication Sig Dispense Refill alendronate (FOSAMAX) 70 mg tablet TAKE 1 TABLET BY MOUTH EVERY 7 (SEVEN) days in IN THE MORNING WITH water ON AN EMPTY STOMACH and nothing else BY MOUTH and remain upright for 30 mins 4 tablet 11 aspirin 81 mg daily. CEPHalexin (KEFLEX) 500 mg capsule Take 1 capsule (500 mg total) by mouth in the morning and 1 capsule (500 mg total) before bedtime. cyproheptadine (PERIACTIN) 4 mg tablet Take 1 tablet (4 mg total) by mouth nightly as needed for allergies. 90 tablet 1 methIMAzole (TAPAZOLE) 10 mg tablet Take 1 tablet (10 mg total) by mouth 3 (three) times a week. montelukast (SINGULAIR) 10 mg tablet take 1 tablet by mouth every evening 90 tablet 2 oxymetazoline (AFRIN, OXYMETAZOLINE,) 0.05 % nasal mist 2 sprays every 6 (six) hours as needed. SYMBICORT 160-4.5 mcg/actuation inhaler INHALE 2 PUFFS BY MOUTH TWICE DAILY 10.2 g 5 traMADoL (ULTRAM) 50 mg tablet Take 1 tablet (50 mg total) by mouth every 6 (six) hours as needed. fluticasone (FLONASE SENSIMIST) 27.5 mcg/actuation nasal spray 2 sprays in the morning. (Patient not taking: Reported on 06/24/2024) Immunization, In Clinic, Inject into the appropriate muscle once for 1 dose. Sign this order to satisfy the OSBOP Positive ID requirements for immunization orders. phentermine (ADIPEX-P) 37.5 mg tablet Take 1 tablet (37.5 mg total) by mouth every morning before breakfast. 30 tablet 0 No current facility-administered medications for this visit. (All medications reviewed and updated by provider since last office visit or hospitalization) Allergies: Patient has no known allergies. Tobacco History: Social History Tobacco Use Smoking Status Former Smokeless Tobacco Never (If patient a smoker, smoking cessation counseling offered) Social History: Social History Substance and Sexual Activity Alcohol Use Not Currently Review of Systems: Review of Systems Constitutional: Negative for activity change, appetite change and unexpected weight change. HENT: Negative for congestion, postnasal drip, rhinorrhea, sinus pressure and sinus pain. Respiratory: Negative. Cardiovascular: Negative. Gastrointestinal: Negative. Allergic/Immunologic: Positive for environmental allergies. Neurological: Negative. Psychiatric/Behavioral: Negative. Physical Exam: BP 120/78 (BP Site: Left Arm, BP Postition: Sitting) Pulse 76 Temp 36.7 C (98 F) (Oral) Ht 165.4 cm (5' 5.12 ) Wt 83.8 kg (184 lb 12.8 oz) SpO2 96% BMI 30.64 kg/m Physical Exam Vitals reviewed. Constitutional: Appearance: Normal appearance. She is obese. HENT: Head: Normocephalic and atraumatic. Right Ear: Tympanic membrane, ear canal and external ear normal. Left Ear: Tympanic membrane, ear canal and external ear normal. Nose: Nose normal. Mouth/Throat: Mouth: Mucous membranes are moist. Eyes: Pupils: Pupils are equal, round, and reactive to light. Neck: Thyroid: No thyroid mass, thyromegaly or thyroid tenderness. Cardiovascular: Rate and Rhythm: Normal rate and regular rhythm. Heart sounds: Normal heart sounds. Pulmonary: Effort: Pulmonary effort is normal. Breath sounds: Normal breath sounds. Abdominal: General: Abdomen is flat. Bowel sounds are normal. Palpations: Abdomen is soft. Tenderness: There is no abdominal tenderness. Musculoskeletal: General: Normal range of motion. Right lower leg: No edema. Left lower leg: No edema. Lymphadenopathy: Cervical: No cervical adenopathy. Skin: General: Skin is warm. Capillary Refill: Capillary refill takes less than 2 seconds. Neurological: General: No focal deficit present. Mental Status: She is alert and oriented to person, place, and time. Psychiatric: Mood and Affect: Mood normal. Behavior: Behavior normal. Thought Content: Thought content normal. Judgment: Judgment normal. Assessment and Plan: Yani was seen today for weight check. Diagnoses and all orders for this visit: LILO (obstructive sleep apnea) - Home sleep study; Future Influenza vaccination administered at current visit - FLU VACCINE TS 2023-(6MOS UP)(PF) 45 MCG(15MCG X3)/0.5 ML IM SYRINGE Class 1 obesity due to excess calories with serious comorbidity and body mass index (BMI) of 33.0 to 33.9 in adult - phentermine (ADIPEX-P) 37.5 mg tablet; Take 1 tablet (37.5 mg total) by mouth every morning before breakfast. Follow-up: Plan to discontinue the Adipex and take six-month break as benefit is not outweighing the risk of using with hyperthyroidism. She has had weight loss but not significant or 5-10%. It was recommended that she continue weight loss with healthy food choices and increasing daily exercise. Patient would like her high-dose flu shot today. Patient would like to do home sleep study through [facility]. The OARRS/MAPPS database was reviewed today and found to be appropriate. No indication of medication diversion, or non compliance. BARBARA PETERS APRN-MALI Manzo 06/29/24 [id number] documented in this encounter [facility] 06-23-2024 History of Present illness Narrative Sinus & Skull Base Surgery Chief Complaint: 1. Chronic sinusitis with nasal polyposis s/p bilateral sinus surgery 06/17/2024 2. Nasal airway obstruction, deviated nasal septum, bilateral inferior turbinate hypertrophy s/p septoplasty, turbinate reductions 06/17/2024 3. Rhinorrhea 4. Facial pain and pressure, headaches, migraines 5. Decreased sense of smell 6. Throat clearing, coughing, dysphonia 7. Asthma, allergic rhinitis 8. Obstructive sleep apnea on CPAP History Of Present Illness: Reason for this visit: Yani Joseph presents for her first postoperative evaluation since undergoing bilateral endoscopic sinus surgery along with nasal airway surgery June 17, 2024. In the interval time she has had nasal congestion secondary to the Villagomez splints. She is using rinses routinely. Active Problems: Patient Active Problem List Diagnosis Deviated nasal septum Chronic ethmoidal sinusitis HTN (hypertension) Asthma LILO (obstructive sleep apnea) History of migraine headaches Nephrolithiasis Gastroesophageal reflux disease Hiatal hernia Hyperthyroidism Past Medical History: She has no past medical history on file. Surgical History: She has a past surgical history that includes Cholecystectomy; Kidney stone surgery; Colonoscopy; Upper gastrointestinal endoscopy; Hysterectomy; Oophorectomy; and Hernia repair. Family History: No family history on file. Social History: She reports that she has quit smoking. Her smoking use included cigarettes. She has never used smokeless tobacco. She reports that she does not drink alcohol and does not use drugs. Allergies: Patient has no known allergies. Current Meds: Current Outpatient Medications: alendronate (Fosamax) 70 mg tablet, Take 1 tablet (70 mg) by mouth once a week., Disp: , Rfl: aspirin 81 mg EC tablet, 1 (one) time each day at the same time, Disp: , Rfl: budesonide-formoteroL (Symbicort) 160-4.5 mcg/actuation inhaler, Inhale 2 puffs twice a day., Disp: , Rfl: cephalexin (Keflex) 500 mg capsule, Take 1 capsule (500 mg) by mouth 2 times a day for 7 days., Disp: 14 capsule, Rfl: 0 cyproheptadine (Periactin) 4 mg tablet, Take 1 tablet (4 mg) by mouth once daily at bedtime., Disp: , Rfl: fluticasone (Flonase Sensimist) 27.5 mcg/actuation nasal spray, Administer 2 sprays into each nostril once daily., Disp: , Rfl: losartan (Cozaar) 50 mg tablet, Take 1 tablet (50 mg) by mouth once daily., Disp: , Rfl: methIMAzole (Tapazole) 10 mg tablet, 1 tablet (10 mg) 3 (three) times a week. Friday, Friday, Friday, Disp: , Rfl: montelukast (Singulair) 10 mg tablet, Take 1 tablet (10 mg) by mouth once daily at bedtime., Disp: , Rfl: oxymetazoline (Afrin, oxymetazoline,) 0.05 % nasal spray, Administer 2 sprays into each nostril every 6 hours if needed (bleeding). Do not use for more than 3 days., Disp: 30 mL, Rfl: 0 sodium chloride (Arthur) 0.65 % nasal spray, Administer 2 sprays into each nostril 6 times a day for 10 days., Disp: 44 mL, Rfl: 0 traMADol (Ultram) 50 mg tablet, Take 1 tablet (50 mg) by mouth every 6 hours if needed for severe pain (7 - 10)., Disp: 16 tablet, Rfl: 0 Vitals: Visit Vitals OB Status Postmenopausal Smoking Status Former Physical Exam: Bilateral Villagomez splints were removed. Nose: On external exam there are neither lesions nor asymmetry of the nasal tip/dorsum. On anterior rhinoscopy, visualization posteriorly is limited on anterior examination. For this reason, to adequately evaluate posteriorly for masses, source of epistaxis, polypoid disease, debridement, and/or signs of infections, nasal endoscopy is indicated. (Please see procedure below.) SINONASAL ENDOSCOPY WITH DEBRIDEMENT (CPT 43258-86-74): Due to the patient's chronic sinusitis/chronic rhinitis, sinonasal endoscopy with debridement is indicated. After discussion of risks and benefits, and topical decongestion and anesthesia, an endoscope was used to perform nasal endoscopy with debridement. A timeout identifying the patient, the procedure, and any concerns was performed prior to beginning the procedure. Findings: Examination of the right nasal cavity revealed no significant debris in the nasal cavity itself. There was blood clot, crusting, and debris within the ethmoid cavity most notably posteriorly. I was able to remove this debris with a combination of alligator and suction to the base of the superior turbinate and then entered the sphenoid and evacuate debris from that level. She was sensitive to manipulation laterally within the posterior ethmoid cavity so some debris was left at that level. The maxillary, ethmoid, and sphenoid all appeared patent. Examination of the left nasal cavity revealed crust, clot, and debris within the left maxillary extending into the ethmoid and sphenoid that was removed with a combination of alligator and suction. The maxillary, ethmoid, and sphenoid were patent following debridement. Complications: None Estimated blood loss: 1 cc Provider Impressions: 1. Chronic sinusitis with nasal polyposis s/p bilateral sinus surgery 06/17/2024 2. Nasal airway obstruction s/p septoplasty, bilateral inferior turbinate reductions 06/17/2024 3. Rhinorrhea 4. Facial pain and pressure, headaches, migraines 5. Decreased sense of smell 6. Throat clearing, coughing, dysphonia 7. Asthma, allergic rhinitis 8. Obstructive sleep apnea on CPAP Discussion: Yani Joseph appeared well on examination today. I asked her to continue rinsing routinely and follow-up in 1 week. I also asked her to continue to avoid strenuous activity. Following her next evaluation, I would like her to restart intranasal topical steroid therapy and we can discuss options during her next clinic evaluation. All questions were answered. Scribe Attestation By signing my name below, I, Marcello Espinal, attest that this documentation has been prepared under the direction and in the presence of Toni Bansal MD. Signature: Toni Bansal MD documented in this encounter [facility] Work Phone: 06-17-2024 Hospital Discharge instructions Bc Landry MD - 06/17/2024 6:54 AM EDT Images from the original note were not included. Nasal and Sinus Surgery at Home Instructions The following instructions will help you know what to expect in the days following your surgery. Please have the following items available at your home/recovery residence: NeilMed Sinus Rinse bottle or equivalent for post-surgical nasal irrigations Oxymetazoline (Afrin ) or Phenylephrine (Louie-Synephrine ) are topical decongestant sprays - they should ONLY be used if you have a nosebleed or excessive bleeding 4 x 4 gauze and paper tape Tylenol (adjunct to prescription therapy or as sole pain medication) Activities You may shower the same day as your surgery Avoid sneezing or blowing your nose for 2 weeks after surgery / if you do sneeze, do so with your mouth open Avoid strenuous activity for 2 weeks after surgery / do not lift heavy objects (greater than 10 pounds) for 1 week after surgery Walking is strongly encouraged after surgery Most patients return to work without about 5 to 7 days after surgery but this is variable Diet You can resume a normal diet within 24 hours of the surgery Fever A low-grade fever, less than 101 F is not uncommon for 2 to 3 days after surgery. If fever continues or is higher than 101 F, call your physician. You can use Tylenol to control the fever. Pain Control Pain is variable after nasal surgery but is generally well controlled with pain medication. Most patients feel pressure and congestion. Pain should lessen with time. If pain increases, call our office. For mild pain, acetaminophen (Tylenol ) is recommended. We suggest scheduling 500-1000 mg of acetaminophen every 6 hours for the first several days (unless you are allergic to this medicine or have problems with your liver). Do not take more than 4000mg in a day. We will also prescribe stronger pain medication for after surgery. Drink plenty of water as these stronger pain medications can be constipating. We also recommend that you take stool softeners on a regular basis while taking narcotic pain medication. You may also take ibuprofen (Advil , Motrin ), naproxen (Aleve , Naprosyn ), and other nonsteroidal anti-inflammatory medications (NSAIDs) following nasal surgery. You may take as directed on the bottle for the first several days. Ibuprofen may be alternated with tylenol to improve your pain control around the clock (ex: tylenol at 8:00 am, ibuprofen at 11:00 am, tylenol at 2:00 pm, ibuprofen at 5:00pm, etc.) Drainage You can expect to have bloody nasal drainage after nasal or sinus surgery. To catch this drainage and to help avoid continuous nose wiping, we usually put a gauze mustache dressing under the nose and tape it to the cheeks for as long as the drainage continues. BLEEDING: Some blood in the nasal drainage after surgery is expected. This may be red, dark red or brown. One way to monitor this is to tape a piece of gauze under the nose to collect the bloody drainage. This may saturate with blood every 1 to 2 hours for the first few days after surgery. If it saturates completely with blood (blood dripping off of it and totally red) MORE FREQUENTLY THAN EVERY 30 MINUTES then call our office. Avoid nose blowing and try to sneeze with your mouth open. Sleeping with your head elevated for at least the first night will also help prevent bleeding and reduce congestion. If you have a nosebleed, try spraying a topical decongestant spray (see page 1) into the side of bleeding 2-3 sprays and hold gentle pressure for 10 minutes. If the bleeding continues after this is done twice call our office. Care of the Nose NASAL SALINE IRRIGATION: THIS IS VERY IMPORTANT - Please START IRRIGATIONS THE MORNING AFTER SURGERY. After sinus surgery, we like to have the nose irrigated with a NeilMed Sinus Rinse bottle (irrigation instructions and saline solution recipe are listed). This will help rinse the blood clots and mucous from the nose. We recommend doing your nasal irrigations AT LEAST 3 TIMES A DAY UNTIL YOUR FOLLOW UP WITH YOUR SURGEON. IF YOU CAN DO IT 5-6 TIMES A DAY THAT WOULD BE IDEAL. Try not to manipulate your nose with your fingers How to Irrigate Fill the NeilMed Sinus Rinse bottle with the room temperature saline solution (see below for recipe). Gently insert the tip into one nostril and squeeze. Keep your head down and blow out through your mouth when you irrigate to prevent water from going back down into your throat. Use about one half of the bottle per nostril. Do this for each nostril at least three times daily until your follow up with your surgeon. The more you can do the irrigation the better. You will likely be irrigating regularly for at least a month or two. Nasal Irrigation Solution Recipe 8 ounces of room temperature distilled water. (If you use tap water, boil it first and let it cool to room temperature.) teaspoon of table salt teaspoon of baking soda You can use the [employer] Sinus Rinse solution packets if preferred Follow up Your appointment for follow up after your surgery should have been scheduled at the time of your surgery. If not, call the office for an appointment scheduled for 1-2 weeks after the date of your surgery. Call the office or GO TO THE EMERGENCY ROOM if you have: Excessive pain, swelling, bleeding or drainage Shortness of breath or difficulty breathing Persistent nausea and vomiting Fever that continues or is higher than 101 F Neck stiffness (cannot touch your chin to your chest) Confusion Worsening headaches that do not respond to pain medication Reproducible clear drainage dripping from your nose like a leaky faucet (particularly one sided). Note: This may happen and is normal up to 30 minutes following saline irrigations or sprays but if it is reproducible despite stopping saline please contact our office Salty or metallic taste (note that you may experience a salty taste that is normal up to 30 minutes following saline use) Do not hesitate to call if you have any questions or concerns: Offices of Otolaryngology - Division of Rhinology Dr. Malik [phone] - Dr. Bansal [phone] Normal office hours are: 8am-4pm Friday - Friday If there is an after-hours EMERGENCY related to your procedure please call [phone] (ask for the ENT resident on-call ). documented in this encounter [facility] Work Phone: 05-31-2024 Note Formatting of this n ote is different from the original. CPM/PAT Evaluation Name: Yani Joseph /Age: 8 1960 TELEMEDICINE ENCOUNTER Patient was interviewed by telephone for preadmission testing perioperative risk assessment prior to surgery. DATE OF CONSULT: 05/31/2024 REFERRING PROVIDER: Dr. Toni Bansal SURGERY, DATE, AND LENGTH: Nasal endoscopy, septoplasty; 06/17/2024; 210 minutes CHIEF COMPLAINT Nasal obstructed breathing, deviated nasal septum HPI Yani Joseph is a 64-year-old female with a long history of chronic sinusitis with nasal polyposis. She has been on several courses antibiotics, and oral steroid therapy that temporarily improve her symptoms, then they return. She has been using steroid nasal sprays without significant benefit. Most bothersome is nasal airway obstruction, anterior and posterior nasal drainage causing chronic throat clearing, and coughing, facial pressure/pain, and decreased sense of smell. She has no sinus surgery history. Patient also has well-controlled asthma uses Symbicort inhaler daily last ER visit from asthma symptoms was in 2020. ACTIVE PROBLEMS Patient Active Problem List Diagnosis Deviated nasal septum Chronic ethmoidal sinusitis PAST MEDICAL HISTORY History reviewed. No pertinent past medical history. SURGICAL HISTORY Past Surgical History: Procedure Laterality Date CHOLECYSTECTOMY COLONOSCOPY HYSTERECTOMY KIDNEY STONE SURGERY OOPHORECTOMY UPPER GASTROINTESTINAL ENDOSCOPY ANESTHESIA HISTORY Denies problems with anesthesia in the past such as PONV, prolonged sedation, awareness, dental damage, aspiration, cardiac arrest, difficult intubation, or unexpected hospital admissions. Denies family history of malignant hyperthermia, or pseudocholinesterase deficiency. SOCIAL HISTORY Remote former cigarette smoker; no alcohol or recreational drug use. Patient states she goes for 60-minute walks 3-4 times a week, and is able to do moderate ADLs such as heavy housework (vacuuming, scrubbing floors, carrying laundry baskets up and down stairs), and light yard work without shortness of breath or chest pain. METS 4 FAMILY HISTORY No family history on file. ALLERGIES No Known Allergies MEDICATIONS No current facility-administered medications for this encounter. Current Outpatient Medications: alendronate (Fosamax) 70 mg tablet, Take 1 tablet (70 mg) by mouth once a week., Disp: , Rfl: aspirin 81 mg EC tablet, 1 (one) time each day at the same time, Disp: , Rfl: budesonide-formoteroL (Symbicort) 160-4.5 mcg/actuation inhaler, Inhale 2 puffs twice a day., Disp: , Rfl: cyproheptadine (Periactin) 4 mg tablet, Take 1 tablet (4 mg) by mouth once daily at bedtime., Disp: , Rfl: losartan (Cozaar) 50 mg tablet, Take 1 tablet (50 mg) by mouth once daily., Disp: , Rfl: methIMAzole (Tapazole) 10 mg tablet, 1 tablet (10 mg) 3 (three) times a week. Friday, Friday, Friday, Disp: , Rfl: montelukast (Singulair) 10 mg tablet, Take 1 tablet (10 mg) by mouth once daily at bedtime., Disp: , Rfl: fluticasone (Flonase Sensimist) 27.5 mcg/actuation nasal spray, Administer 2 sprays into each nostril once daily., Disp: , Rfl: REVIEW OF SYSTEMS Review of Systems HENT: Positive for congestion, postnasal drip, sinus pressure and sinus pain. Neurological: Positive for headaches. All other systems reviewed and are negative. STOP BANG: Positive for LILO. Patient states she has not used her CPAP machine since March 2024 due to chronic nasal congestion. PHYSICAL EXAM Deferred AIRWAY EXAM Deferred VITALS No vitals taken for telemedicine visit BMI Readings from Last 1 Encounters: 03/04/24 33.27 kg/m BP Readings from Last 4 Encounters: No data found for BP LABS No results found for: WBC , HGB , HCT , MCV , PLT No results found for: GLUCOSE , CALCIUM , NA , K , CO2 , CL , BUN , CREATININE No results found for: HGBA1C No results found for: CHOL No results found for: HDL No results found for: LDLCALC No results found for: TRIG No components found for: CHOLHDL Lab orders placed for CBC, BMP on 05/31/2024. Patient expressed understanding that lab work was to be completed before surgery. IMAGING Transthoracic echocardiogram from 04/10/2022 Narrative Left Ventricle: Systolic function is normal with an ejection fraction of 60-65%. The EF by visual approximation is 66%. Normal chamber size and focal basal septal hypertrophy without segmental wall motion abnormalities. No significant Doppler abnormalities No significant valvular abnormalities Grade 1 diastolic dysfunction Left Ventricle Left ventricle appears normal in size. There is mild focal basal increased wall thickness/hypertrophy. Remaining wall segments are normal. Systolic function is normal with an ejection fraction of 60-65%. The EF by visual approximation is 66%. No obvious regional wall motion abnormalities. Grade I diastolic dysfunction (impaired relaxation) is present. Lateral E' is 7.94 cm/s. Medial E' is 6.64 cm/s. Right Ventricle Right ventricular size appears normal. The right ventricular basal diameter is 34.0 mm. Systolic function is normal. Left Atrium Left atrium is normal in size. The left atrial volume index is 27.1 mL/m2. Right Atrium Right atrium is normal in size. The right atrial area is 15.6 cm2. IVC/SVC IVC appears normal. Mitral Valve Mitral valve structure is normal. There is trace regurgitation. There is no evidence of mitral valve stenosis. Tricuspid Valve The tricuspid valve was not well visualized. There is trace regurgitation. There is no evidence of tricuspid valve stenosis. The right ventricular systolic pressure normal. Aortic Valve The aortic valve is trileaflet. There is no regurgitation or stenosis. Pulmonic Valve The pulmonic valve was not well visualized. There is trace regurgitation. There is no evidence of pulmonic valve stenosis. Ascending Aorta The aortic root is normal in size. Pericardium There is no pericardial effusion. Study Details A complete echo was performed using complete 2D, color flow Doppler and spectral Doppler. Overall the study quality was adequate. Wall Scoring Baseline Score Index: 1.00 The left ventricular wall motion is normal. ASSESSMENT/PLAN Nasal obstructed breathing, deviated nasal septum Nasal endoscopy, septoplasty This note was created in part upon personal review of patient's medical records. Speech recognition operations supervisor 2nd shift software was used in the creation of this note. Despite proofreading, several typographical errors might be present that might affect the meaning of the content. [facility] Work Phone: 05-31-2024 Miscellaneous Notes CPM/PAT Evaluation Name: Yani Joseph /Age: 8 1960 TELEMEDICINE ENCOUNTER Patient was interviewed by telephone for preadmission testing perioperative risk assessment prior to surgery. DATE OF CONSULT: 05/31/2024 REFERRING PROVIDER: Dr. Toni Bansal SURGERY, DATE, AND LENGTH: Nasal endoscopy, septoplasty; 06/17/2024; 210 minutes CHIEF COMPLAINT Nasal obstructed breathing, deviated nasal septum HPI Yani Joseph is a 64-year-old female with a long history of chronic sinusitis with nasal polyposis. She has been on several courses antibiotics, and oral steroid therapy that temporarily improve her symptoms, then they return. She has been using steroid nasal sprays without significant benefit. Most bothersome is nasal airway obstruction, anterior and posterior nasal drainage causing chronic throat clearing, and coughing, facial pressure/pain, and decreased sense of smell. She has no sinus surgery history. Patient also has well-controlled asthma uses Symbicort inhaler daily last ER visit from asthma symptoms was in 2020. ACTIVE PROBLEMS Patient Active Problem List Diagnosis Deviated nasal septum Chronic ethmoidal sinusitis PAST MEDICAL HISTORY History reviewed. No pertinent past medical history. SURGICAL HISTORY Past Surgical History: Procedure Laterality Date CHOLECYSTECTOMY COLONOSCOPY HYSTERECTOMY KIDNEY STONE SURGERY OOPHORECTOMY UPPER GASTROINTESTINAL ENDOSCOPY ANESTHESIA HISTORY Denies problems with anesthesia in the past such as PONV, prolonged sedation, awareness, dental damage, aspiration, cardiac arrest, difficult intubation, or unexpected hospital admissions. Denies family history of malignant hyperthermia, or pseudocholinesterase deficiency. SOCIAL HISTORY Remote former cigarette smoker; no alcohol or recreational drug use. Patient states she goes for 60-minute walks 3-4 times a week, and is able to do moderate ADLs such as heavy housework (vacuuming, scrubbing floors, carrying laundry baskets up and down stairs), and light yard work without shortness of breath or chest pain. METS 4 FAMILY HISTORY No family history on file. ALLERGIES No Known Allergies MEDICATIONS No current facility-administered medications for this encounter. Current Outpatient Medications: alendronate (Fosamax) 70 mg tablet, Take 1 tablet (70 mg) by mouth once a week., Disp: , Rfl: aspirin 81 mg EC tablet, 1 (one) time each day at the same time, Disp: , Rfl: budesonide-formoteroL (Symbicort) 160-4.5 mcg/actuation inhaler, Inhale 2 puffs twice a day., Disp: , Rfl: cyproheptadine (Periactin) 4 mg tablet, Take 1 tablet (4 mg) by mouth once daily at bedtime., Disp: , Rfl: losartan (Cozaar) 50 mg tablet, Take 1 tablet (50 mg) by mouth once daily., Disp: , Rfl: methIMAzole (Tapazole) 10 mg tablet, 1 tablet (10 mg) 3 (three) times a week. Friday, Friday, Friday, Disp: , Rfl: montelukast (Singulair) 10 mg tablet, Take 1 tablet (10 mg) by mouth once daily at bedtime., Disp: , Rfl: fluticasone (Flonase Sensimist) 27.5 mcg/actuation nasal spray, Administer 2 sprays into each nostril once daily., Disp: , Rfl: REVIEW OF SYSTEMS Review of Systems HENT: Positive for congestion, postnasal drip, sinus pressure and sinus pain. Neurological: Positive for headaches. All other systems reviewed and are negative. STOP BANG: Positive for LILO. Patient states she has not used her CPAP machine since March 2024 due to chronic nasal congestion. PHYSICAL EXAM Deferred AIRWAY EXAM Deferred VITALS No vitals taken for telemedicine visit BMI Readings from Last 1 Encounters: 03/04/24 33.27 kg/m BP Readings from Last 4 Encounters: No data found for BP LABS No results found for: WBC , HGB , HCT , MCV , PLT No results found for: GLUCOSE , CALCIUM , NA , K , CO2 , CL , BUN , CREATININE No results found for: HGBA1C No results found for: CHOL No results found for: HDL No results found for: LDLCALC No results found for: TRIG No components found for: CHOLHDL Lab orders placed for CBC, BMP on 05/31/2024. Patient expressed understanding that lab work was to be completed before surgery. IMAGING Transthoracic echocardiogram from 04/10/2022 Narrative Left Ventricle: Systolic function is normal with an ejection fraction of 60-65%. The EF by visual approximation is 66%. Normal chamber size and focal basal septal hypertrophy without segmental wall motion abnormalities. No significant Doppler abnormalities No significant valvular abnormalities Grade 1 diastolic dysfunction Left Ventricle Left ventricle appears normal in size. There is mild focal basal increased wall thickness/hypertrophy. Remaining wall segments are normal. Systolic function is normal with an ejection fraction of 60-65%. The EF by visual approximation is 66%. No obvious regional wall motion abnormalities. Grade I diastolic dysfunction (impaired relaxation) is present. Lateral E' is 7.94 cm/s. Medial E' is 6.64 cm/s. Right Ventricle Right ventricular size appears normal. The right ventricular basal diameter is 34.0 mm. Systolic function is normal. Left Atrium Left atrium is normal in size. The left atrial volume index is 27.1 mL/m2. Right Atrium Right atrium is normal in size. The right atrial area is 15.6 cm2. IVC/SVC IVC appears normal. Mitral Valve Mitral valve structure is normal. There is trace regurgitation. There is no evidence of mitral valve stenosis. Tricuspid Valve The tricuspid valve was not well visualized. There is trace regurgitation. There is no evidence of tricuspid valve stenosis. The right ventricular systolic pressure normal. Aortic Valve The aortic valve is trileaflet. There is no regurgitation or stenosis. Pulmonic Valve The pulmonic valve was not well visualized. There is trace regurgitation. There is no evidence of pulmonic valve stenosis. Ascending Aorta The aortic root is normal in size. Pericardium There is no pericardial effusion. Study Details A complete echo was performed using complete 2D, color flow Doppler and spectral Doppler. Overall the study quality was adequate. Wall Scoring Baseline Score Index: 1.00 The left ventricular wall motion is normal. ASSESSMENT/PLAN Nasal obstructed breathing, deviated nasal septum Nasal endoscopy, septoplasty This note was created in part upon personal review of patient's medical records. Speech recognition operations supervisor 2nd shift software was used in the creation of this note. Despite proofreading, several typographical errors might be present that might affect the meaning of the content. Pre-Op Instructions &?Checklist Your surgery has been scheduled at [facility] at [address] [place] [address], in [place], [place], [facility], [address], in the [facility]. Parking is to the left of the main entrance. You will be contacted about the time of your surgery the day before your surgery (if your surgery is on a Friday you will be called the Friday before surgery). If you are unable to answer the phone, a detailed voicemail message will be left. Make sure that your voicemail box is not full so a message can be left. If you have not received a call by 3:00 pm you may call [phone] between the hours of 3:00 and 4:00 pm. Please be available by phone the night before/day of surgery in case there is a change in the schedule which may require you to arrive earlier/later. ? 14 DAYS BEFORE SURGERY STOP TAKING WEIGHT LOSS MEDICATIONS ? 7 DAYS BEFORE SURGERY STOP THESE MEDICATIONS: Multiple Vitamins containing Vitamin E Herbal supplements, Fish Oil, garlic pills, turmeric, CoQ enzyme Stop taking aspirin, and aspirin-containing products, and NSAIDs. You may continue to take Acetaminophen (Tylenol). If you are currently taking Coumadin/Warfarin, we will have to coordinate that with your PCP &/or the Anticoagulation Clinic. THE DAY BEFORE SURGERY: Do not eat any food after midnight the night before surgery. You are permitted to have no more than 4 ounces of clear liquids such as water, apple juice, plain tea or coffee (no milk or creamer), clear electrolyte-replenishing drinks such as Pedialyte, Gatorade, or Powerade (not yogurt or pulp-containing smoothies or juices such as orange juice) up to 3 hours before your arrival time. DAY OF SURGERY TAKE THESE MEDICATIONS (if it is not listed, do not take it.) Take: use your Symbicort inhaler If taking medications in tablet/capsule form take with a small sip of water. ON THE MORNING OF SURGERY: *Shower either the night before your surgery or the morning of your surgery *Do not use moisturizers, creams, lotions or perfume, or make-up. *Wear comfortable, loose fitting clothing. *All jewelry and valuables should be left at home. *Prosthetic devices such as contact lenses, hearing aids, dentures, eyelash extensions, hairpins and body piercings must be removed before surgery. Bring containers for eyeglasses/contacts, dentures, or hearing aids with you. ? Diabetics: Please check fasting blood sugars upon waking up. ?If fasting blood sugars are <80ml/dl, please drink 100ml/3oz. of apple juice no later than 2 hours prior to surgery. ? ? BRING WITH YOU: *Photo ID and insurance card *Current list of medicines and allergies *Pacemaker/Defibrillator/Heart stent cards *Copy of your complete Advanced Directive/DHPOA-if applicable ? SMOKING: *Quitting smoking can make a huge difference to your health and recovery from surgery. ? *If you need help with quitting, call 6-464-TMUH-NOW. Alcohol: *No alcoholic beverages for 48 hours before surgery. ? AFTER OUTPATIENT SURGERY: *A responsible adult MUST accompany you at the time of discharge and stay with you for 24 hours after your surgery. *You may NOT drive yourself home after surgery. * You may use a taxi or ride sharing service ([email or web address], [employer]) to return home ONLY if you are accompanied by a friend or family member *Instructions for resuming your medications will be provided by your surgeon. ? CONTACT SURGEON'S OFFICE IF YOU DEVELOP: * Fever =/>?100.4 F * New respiratory symptoms (e.g. cough, shortness of breath, respiratory distress, sore throat) * Recent loss of taste or smell *Flu like symptoms such as headache, fatigue or gastrointestinal symptoms * If you develop any open sores, shingles, burning or painful urination AND/OR: * You no longer wish to have the surgery. * Any other personal circumstances change that may lead to the need to cancel or defer this surgery. *You were admitted to any hospital within one week of your planned procedure. ? If you have any questions regarding these preoperative instructions you may call [phone]. If you have questions regarding you surgical procedure, or post-operative care/recovery please call your surgeon's office. Link to [facility] Laboratory Services Locations [email or web address] Link to [facility] [employer] [email or web address] documented in this encounter [facility] Work Phone: 05-31-2024 Note Formatting of this n ote is different from the original. Pre-Op Instructions &?Checklist Your surgery has been scheduled at [facility] at [address] [facility], in [place], [place], [facility], [address], in the [facility]. Parking is to the left of the main entrance. You will be contacted about the time of your surgery the day before your surgery (if your surgery is on a Friday you will be called the Friday before surgery). If you are unable to answer the phone, a detailed voicemail message will be left. Make sure that your voicemail box is not full so a message can be left. If you have not received a call by 3:00 pm you may call [phone] between the hours of 3:00 and 4:00 pm. Please be available by phone the night before/day of surgery in case there is a change in the schedule which may require you to arrive earlier/later. ? 14 DAYS BEFORE SURGERY STOP TAKING WEIGHT LOSS MEDICATIONS ? 7 DAYS BEFORE SURGERY STOP THESE MEDICATIONS: Multiple Vitamins containing Vitamin E Herbal supplements, Fish Oil, garlic pills, turmeric, CoQ enzyme Stop taking aspirin, and aspirin-containing products, and NSAIDs. You may continue to take Acetaminophen (Tylenol). If you are currently taking Coumadin/Warfarin, we will have to coordinate that with your PCP &/or the Anticoagulation Clinic. THE DAY BEFORE SURGERY: Do not eat any food after midnight the night before surgery. You are permitted to have no more than 4 ounces of clear liquids such as water, apple juice, plain tea or coffee (no milk or creamer), clear electrolyte-replenishing drinks such as Pedialyte, Gatorade, or Powerade (not yogurt or pulp-containing smoothies or juices such as orange juice) up to 3 hours before your arrival time. DAY OF SURGERY TAKE THESE MEDICATIONS (if it is not listed, do not take it.) Take: use your Symbicort inhaler If taking medications in tablet/capsule form take with a small sip of water. ON THE MORNING OF SURGERY: *Shower either the night before your surgery or the morning of your surgery *Do not use moisturizers, creams, lotions or perfume, or make-up. *Wear comfortable, loose fitting clothing. *All jewelry and valuables should be left at home. *Prosthetic devices such as contact lenses, hearing aids, dentures, eyelash extensions, hairpins and body piercings must be removed before surgery. Bring containers for eyeglasses/contacts, dentures, or hearing aids with you. ? Diabetics: Please check fasting blood sugars upon waking up. ?If fasting blood sugars are <80ml/dl, please drink 100ml/3oz. of apple juice no later than 2 hours prior to surgery. ? ? BRING WITH YOU: *Photo ID and insurance card *Current list of medicines and allergies *Pacemaker/Defibrillator/Heart stent cards *Copy of your complete Advanced Directive/DHPOA-if applicable ? SMOKING: *Quitting smoking can make a huge difference to your health and recovery from surgery. ? *If you need help with quitting, call 8-872-DHJB-NOW. Alcohol: *No alcoholic beverages for 48 hours before surgery. ? AFTER OUTPATIENT SURGERY: *A responsible adult MUST accompany you at the time of discharge and stay with you for 24 hours after your surgery. *You may NOT drive yourself home after surgery. * You may use a taxi or ride sharing service ([employer], [employer]) to return home ONLY if you are accompanied by a friend or family member *Instructions for resuming your medications will be provided by your surgeon. ? CONTACT SURGEON'S OFFICE IF YOU DEVELOP: * Fever =/>?100.4 F * New respiratory symptoms (e.g. cough, shortness of breath, respiratory distress, sore throat) * Recent loss of taste or smell *Flu like symptoms such as headache, fatigue or gastrointestinal symptoms * If you develop any open sores, shingles, burning or painful urination AND/OR: * You no longer wish to have the surgery. * Any other personal circumstances change that may lead to the need to cancel or defer this surgery. *You were admitted to any hospital within one week of your planned procedure. ? If you have any questions regarding these preoperative instructions you may call [phone]. If you have questions regarding you surgical procedure, or post-operative care/recovery please call your surgeon's office. Link to [facility] Laboratory Services Locations [email or web address] Link to [facility] [employer] [email or web address] [facility] Work Phone: 05-06-2024 History of Present illness Narrative [address] [place] [address] Patient: Yani Joseph Date of : 1960 Encounter Date: 05/06/2024 History of Present Illness: The patient is a 64 y.o. female, an established patient, and is here for Chief Complaint Patient presents with Annual Exam . HPI Patient is here for her annual exam and weight check on phentermine. This is month 3 of 3 on phentermine. She had a 3 lb weight loss in the last 1 month and 11 lb weight loss total. She is to have sinus surgery for deviated septum with ENT in June. Patient saw her construction sales representative in February and her thyroid function tests were normal and she was advised to lose weight and provider was aware she was planning on using Adipex for medically monitored weight loss. She had a colonoscopy with a GI provider through [facility] almost 5 years ago that showed polyps and she would like to follow-up on this with Dr. Simon for a screening colonoscopy in August. Patient has history of total hysterectomy for endometriosis in the past. Problem List Items Addressed This Visit Respiratory LILO (obstructive sleep apnea) Other Visit Diagnoses Wellness examination - Primary Relevant Orders Lipid profile Comprehensive metabolic panel Class 1 obesity due to excess calories with serious comorbidity and body mass index (BMI) of 33.0 to 33.9 in adult Relevant Medications phentermine (ADIPEX-P) 37.5 mg tablet Encounter for screening colonoscopy History of colon polyps Past Medical, Family, and Social History Update: The following portions of the patient's history were reviewed and updated as appropriate: allergies, current medications, past family history, past medical history, past social history, past surgical history and problem list. Past Medical History: Diagnosis Date Asthma Kidney stones 02/02/2024 Pulmonary embolism ([facility]) Shortness of breath Sinusitis chronic, frontal 02/2024 Past Surgical History: Procedure Laterality Date APPENDECTOMY CHOLECYSTECTOMY HIATAL HERNIA REPAIR HYSTERECTOMY 1993 complete KNEE ARTHROSCOPY W/ DEBRIDEMENT Left 2013 OOPHORECTOMY Bilateral 1993 Current Outpatient Medications Medication Sig Dispense Refill alendronate (FOSAMAX) 70 mg tablet Take 1 tablet (70 mg total) by mouth every 7 days. In a.m. with water on empty stomach, nothing else by mouth and remain upright for 30min 4 tablet 11 aspirin 81 mg daily. cyproheptadine (PERIACTIN) 4 mg tablet take 1 tablet by mouth in the evening 90 tablet 1 fluticasone (FLONASE SENSIMIST) 27.5 mcg/actuation nasal spray 2 sprays in the morning. methIMAzole (TAPAZOLE) 10 mg tablet Take 1 tablet (10 mg total) by mouth 3 (three) times a week. montelukast (SINGULAIR) 10 mg tablet take 1 tablet by mouth every evening 90 tablet 2 SYMBICORT 160-4.5 mcg/actuation inhaler INHALE 2 PUFFS BY MOUTH TWICE DAILY 10.2 g 5 losartan (COZAAR) 25 mg tablet Take 1 tablet (25 mg total) by mouth in the morning. 90 tablet 1 phentermine (ADIPEX-P) 37.5 mg tablet Take 1 tablet (37.5 mg total) by mouth every morning before breakfast. 30 tablet 0 No current facility-administered medications for this visit. (All medications reviewed and updated by provider since last office visit or hospitalization) Allergies: Patient has no known allergies. Tobacco History: Social History Tobacco Use Smoking Status Former Smokeless Tobacco Never (If patient a smoker, smoking cessation counseling offered) Social History: Social History Substance and Sexual Activity Alcohol Use Not Currently Review of Systems: Review of Systems Constitutional: Positive for unexpected weight change (3 lb weight loss since last appt). Negative for activity change and appetite change. HENT: Positive for congestion, postnasal drip, rhinorrhea, sinus pressure and sinus pain. Respiratory: Negative. Cardiovascular: Negative. Gastrointestinal: Negative. Allergic/Immunologic: Positive for environmental allergies. Neurological: Negative. Psychiatric/Behavioral: Negative. Physical Exam: BP 110/68 (BP Site: Left Arm, BP Postition: Sitting) Pulse 100 Temp 36.7 C (98.1 F) (Oral) Resp 18 Ht 165.4 cm (5' 5.12 ) Wt 85.5 kg (188 lb 6.4 oz) SpO2 97% BMI 31.24 kg/m Physical Exam Vitals reviewed. Constitutional: Appearance: Normal appearance. She is obese. HENT: Head: Normocephalic and atraumatic. Right Ear: Tympanic membrane, ear canal and external ear normal. Left Ear: Tympanic membrane, ear canal and external ear normal. Nose: Congestion and rhinorrhea present. Mouth/Throat: Mouth: Mucous membranes are moist. Eyes: Pupils: Pupils are equal, round, and reactive to light. Neck: Thyroid: No thyroid mass, thyromegaly or thyroid tenderness. Vascular: No carotid bruit. Cardiovascular: Rate and Rhythm: Normal rate and regular rhythm. Heart sounds: Normal heart sounds. Pulmonary: Effort: Pulmonary effort is normal. Breath sounds: Normal breath sounds. Abdominal: General: Abdomen is flat. Bowel sounds are normal. Palpations: Abdomen is soft. Tenderness: There is no abdominal tenderness. Musculoskeletal: General: Normal range of motion. Right lower leg: No edema. Left lower leg: No edema. Lymphadenopathy: Cervical: No cervical adenopathy. Skin: General: Skin is warm. Capillary Refill: Capillary refill takes less than 2 seconds. Neurological: General: No focal deficit present. Mental Status: She is alert and oriented to person, place, and time. Psychiatric: Mood and Affect: Mood normal. Behavior: Behavior normal. Thought Content: Thought content normal. Judgment: Judgment normal. Assessment and Plan: Yani was seen today for annual exam. Diagnoses and all orders for this visit: Wellness examination - Lipid profile; Future - Comprehensive metabolic panel; Future Class 1 obesity due to excess calories with serious comorbidity and body mass index (BMI) of 33.0 to 33.9 in adult - phentermine (ADIPEX-P) 37.5 mg tablet; Take 1 tablet (37.5 mg total) by mouth every morning before breakfast. LILO (obstructive sleep apnea) Encounter for screening colonoscopy History of colon polyps Other orders - losartan (COZAAR) 25 mg tablet; Take 1 tablet (25 mg total) by mouth in the morning. Follow-up: Patient's health maintenance and immunizations were reviewed today, she would like to hold off on her Tdap and plans to get her flu shot in June. She is performing self-breast exams and is up-to-date on her mammograms. She no longer needs a Pap smear. She is having no sexual dysfunction or problems. Her blood pressure is very well controlled and we can cut her losartan to 25 mg daily. She is not using her CPAP as her sinuses are making it difficult but she plans on restarting her CPAP use nightly after her sinus surgery is complete in June. The OARRS/MAPPS database was reviewed today and found to be appropriate. No indication of medication diversion, or non compliance. Message sent to staff to set up her colonoscopy with Dr. Simon in August. She has seen Dermatology this year for full body skin check. Patient will follow-up in 1 month for possible continuation of the phentermine for medically monitored weight loss. MALI ESPINOZA APRN-CNP 05/06/24 1620 documented in this encounter [facility] [employer] 04-01-2024 History of Present [place] [address] Patient: aYni Joseph Date of : 1960 Encounter Date: 04/01/2024 History of Present Illness: The patient is a 64 y.o. female, an established patient, and is here for Chief Complaint Patient presents with Weight Check . HPI Patient is here for month 2 of 3 on the Adipex. She has lost 11 lb since January an 8 lb since last appointment. She is doing well in the Adipex without adverse side effects. Patient has stopped wearing her CPAP because she can not breathe through her nose. She does have sinus surgery scheduled for this fall to help with this. Her sleep study from 2021 was reviewed with patient today showing [id number] sleep apnea with mild hypoxia. Problem List Items Addressed This Visit Respiratory LILO (obstructive sleep apnea) Other Visit Diagnoses Class 1 obesity due to excess calories with serious comorbidity and body mass index (BMI) of 31.0 to 31.9 in adult - Primary Class 1 obesity due to excess calories with serious comorbidity and body mass index (BMI) of 33.0 to 33.9 in adult Relevant Medications phentermine (ADIPEX-P) 37.5 mg tablet Past Medical, Family, and Social History Update: The following portions of the patient's history were reviewed and updated as appropriate: allergies, current medications, past family history, past medical history, past social history, past surgical history and problem list. Past Medical History: Diagnosis Date Asthma Kidney stones 02/02/2024 Pulmonary embolism ([facility]) Shortness of breath Sinusitis chronic, frontal 02/2024 Past Surgical History: Procedure Laterality Date APPENDECTOMY CHOLECYSTECTOMY HIATAL HERNIA REPAIR HYSTERECTOMY 1993 complete KNEE ARTHROSCOPY W/ DEBRIDEMENT Left 2013 OOPHORECTOMY Bilateral 1993 Current Outpatient Medications Medication Sig Dispense Refill alendronate (FOSAMAX) 70 mg tablet Take 1 tablet (70 mg total) by mouth every 7 days. In a.m. with water on empty stomach, nothing else by mouth and remain upright for 30min 4 tablet 11 aspirin 81 mg daily. cyproheptadine (PERIACTIN) 4 mg tablet take 1 tablet by mouth in the evening 90 tablet 1 fluticasone (FLONASE SENSIMIST) 27.5 mcg/actuation nasal spray 2 sprays in the morning. losartan (COZAAR) 50 mg tablet take 1 tablet by mouth daily 90 tablet 1 methIMAzole (TAPAZOLE) 10 mg tablet Take 1 tablet (10 mg total) by mouth 3 (three) times a week. montelukast (SINGULAIR) 10 mg tablet take 1 tablet by mouth every evening 90 tablet 2 SYMBICORT 160-4.5 mcg/actuation inhaler INHALE 2 PUFFS BY MOUTH TWICE DAILY 10.2 g 5 phentermine (ADIPEX-P) 37.5 mg tablet Take 1 tablet (37.5 mg total) by mouth every morning before breakfast. 30 tablet 0 No current facility-administered medications for this visit. (All medications reviewed and updated by provider since last office visit or hospitalization) Allergies: Patient has no known allergies. Tobacco History: Social History Tobacco Use Smoking Status Former Smokeless Tobacco Never (If patient a smoker, smoking cessation counseling offered) Social History: Social History Substance and Sexual Activity Alcohol Use Not Currently Review of Systems: Review of Systems Constitutional: Positive for unexpected weight change (8 lb weight loss since last appt). Negative for activity change and appetite change. HENT: Positive for congestion, postnasal drip, rhinorrhea, sinus pressure and sinus pain. Respiratory: Negative. Cardiovascular: Negative. Gastrointestinal: Negative. Allergic/Immunologic: Positive for environmental allergies. Neurological: Negative. Psychiatric/Behavioral: Negative. Physical Exam: BP 120/70 (BP Site: Left Arm, BP Postition: Sitting) Pulse 77 Temp 36.2 C (97.2 F) (Tympanic) Resp 18 Ht 165.4 cm (5' 5.12 ) Wt 86.7 kg (191 lb 3.2 oz) SpO2 98% BMI 31.70 kg/m Physical Exam Vitals reviewed. Constitutional: Appearance: Normal appearance. She is obese. HENT: Head: Normocephalic and atraumatic. Eyes: Pupils: Pupils are equal, round, and reactive to light. Neck: Thyroid: No thyroid mass, thyromegaly or thyroid tenderness. Cardiovascular: Rate and Rhythm: Normal rate and regular rhythm. Heart sounds: Normal heart sounds. Pulmonary: Effort: Pulmonary effort is normal. Breath sounds: Normal breath sounds. Abdominal: General: Abdomen is flat. Bowel sounds are normal. Palpations: Abdomen is soft. Tenderness: There is no abdominal tenderness. Musculoskeletal: General: Normal range of motion. Right lower leg: No edema. Left lower leg: No edema. Lymphadenopathy: Cervical: No cervical adenopathy. Skin: General: Skin is warm. Capillary Refill: Capillary refill takes less than 2 seconds. Neurological: General: No focal deficit present. Mental Status: She is alert and oriented to person, place, and time. Psychiatric: Mood and Affect: Mood normal. Behavior: Behavior normal. Thought Content: Thought content normal. Judgment: Judgment normal. Assessment and Plan: Yani was seen today for weight check. Diagnoses and all orders for this visit: Class 1 obesity due to excess calories with serious comorbidity and body mass index (BMI) of 31.0 to 31.9 in adult Class 1 obesity due to excess calories with serious comorbidity and body mass index (BMI) of 33.0 to 33.9 in adult - phentermine (ADIPEX-P) 37.5 mg tablet; Take 1 tablet (37.5 mg total) by mouth every morning before breakfast. LILO (obstructive sleep apnea) Follow-up: Continue for month 2 of 3 on the Adipex. Blood pressure well controlled. Her construction sales representative is aware that she is taking the Adipex with history of Graves disease and feels benefit outweighs risk as patient would benefit from weight loss to prevent comorbid conditions such as uncontrolled hypertension and type 2 diabetes. Patient's blood pressure is well controlled without adverse side effects on the Adipex. The OARRS/MAPPS database was reviewed today and found to be appropriate. No indication of medication diversion, or non compliance. Recommend repeat sleep study after her sinus surgery in the fall per ENTs recommendation. Follow-up in 1 month for Adipex. MALI ESPINOZA APRN-CNP 04/01/24 1218 documented in this encounter [facility] Hospital Discharge instructions Patient Education 03/11/2024 12:48:35 Kidney Stones Kidney Stones Kidney stones are solid, rock-like deposits that form inside of the kidneys. The kidneys are a pair of organs that make urine. A kidney stone [...] when you eat certain foods. It usually leaves the body in the urine. Narrowing (stricture) of one or both of the ureters. A kidney blockage that is present at (congenital obstruction). Past surgery on the kidney or the ureters. What increases the risk? The following factors [...] spreads (radiates) to the groin. Needing to urinate often or urgently. Painful urination. Blood in the [...] IV and may need to be monitored in the hospital. Take medicine for pain. Make changes in your diet to help prevent kidney stones from coming back. Sometimes, procedures are needed to remove a kidney stone. This may involve: A procedure to break up kidney stones using: ?A focused beam of light (laser therapy). ?Shock waves (extracorporeal shock wave lithotripsy). Surgery to remove kidney stones. This may be needed if you have severe pain or have stones that block your urinary tract. Follow these instructions at home: Medicines Take pumk-cku-xiqfcjg and prescription medicines only as told by [...] and vegetables. ?Limiting how much animal protein you eat. Animal proteins include red meat, poultry, fish, and eggs. ?Eating a normal amount of calcium (1,000 1,300 mg per day). Follow instructions from your health care provider about eating or drinking restrictions. General instructions Collect urine samples as told by your health care provider. You may need to collect a urine sample: ?24 hours after you pass the stone. ?8 12 weeks after you pass the kidney stone, and every 6 12 [...] stones in the future. Keep all follow-up visits. You may need follow-up X-rays or ultrasounds to make sure that your stone has passed. How is this prevented? To prevent another kidney stone: Drink enough fluid to keep your urine pale yellow. This is the best way to prevent kidney stones. Eat a healthy diet. Follow recommendations from your health care provider about foods to avoid. Recommendations vary depending on the type of kidney stone that you have. You may be instructed to eat a low-protein diet. Maintain a healthy weight. Where to find [...] abdominal pain, and the urge to urinate often. Treatment for kidney stones depends on the [...] with your health care provider. Document Revised: 12/11/2022 Document Reviewed: 12/11/2022 [employer] Patient Education 2022 Strikingly. Follow Up Care 03/05/2024 12:09:13 With:FLORINDA PATRICIA PA-C, URL Address: [address] [place] [address] [facility] [place] [address] When: Unknown [facility] 03-11-2024 Note Patient Education Urology Kidney Stones Kidney stones are solid, rock-like deposits that form inside of the kidneys. The kidneys are a pair of organs that make urine. A kidney stone [...] ? A condition in which certain glands produce too much parathyroid hormone (primary hyperparathyroidism), which causes too much calcium buildup in the blood. ? A buildup of uric acid crystals in the bladder (hyperuricosuria). Uric acid is a chemical that the body produces when you eat certain foods. It usually leaves the body in the urine. ? Narrowing (stricture) of one or both of the ureters. ? A kidney blockage that is present at (congenital obstruction). ? Past surgery on the kidney or the ureters. What increases the risk? The following factors may make you more likely to develop this condition: ? Having had a kidney stone in the past. ? Having a family history of kidney stones. ? Not drinking enough water. ? Eating a diet that is high in protein, salt (sodium), or sugar. ? Being overweight or obese. What are the signs or symptoms? Symptoms of a kidney stone may include: ? Pain in the side of the abdomen, right below the ribs (flank pain). Pain usually spreads (radiates) to the groin. ? Needing to urinate often or urgently. ? Painful urination. ? Blood in the urine (hematuria). ? Nausea. ? Vomiting. ? Fever and chills. How is this diagnosed? This condition may be diagnosed based on: ? Your symptoms and medical history. ? A physical exam. ? Blood tests. ? Urine tests. These may be done before and after the stone passes out of your body through urination. ? Imaging tests, such as a CT scan, abdominal X-ray, or ultrasound. ? A procedure to examine the inside of the bladder (cystoscopy). How is this treated? Treatment for kidney stones depends on the size, location, and makeup of the stones. Kidney stones will often pass out of the body through urination. You may need to: ? Increase your fluid intake to help pass the stone. In some cases, you may be given fluids through an IV and may need to be monitored in the hospital. ? Take medicine for pain. ? Make changes in your diet to help prevent kidney stones from coming back. Sometimes, procedures are needed to remove a kidney stone. This may involve: ? A procedure to break up kidney stones using: ? A focused beam of light (laser therapy). ? Shock waves (extracorporeal shock wave lithotripsy). ? Surgery to remove kidney stones. This may be needed if you have severe pain or have stones that block your urinary tract. Follow these instructions at home: Medicines ? Take iocd-xsy-hjbfhgs and prescription medicines only as told by your health care provider. ? Ask your health care provider if the medicine prescribed to you requires you to avoid driving or using heavy machinery. Eating and drinking ? Drink enough fluid to keep your urine pale yellow. You may be instructed to drink at least 8?10 glasses of water each day. This will help you pass the kidney stone. ? If directed, change your diet. This may include: ? Limiting how much sodium you eat. ? Eating more fruits and vegetables. ? Limiting how much animal protein you eat. Animal proteins include red meat, poultry, fish, and eggs. ? Eating a normal amount of calcium (1,000?1,300 mg per day). ? Follow instructions from your health care provider about eating or drinking restrictions. General instructions ? Collect urine samples as told by your health care provider. You may need to collect a urine sample: ? 24 hours after you pass the stone. ? 8?12 weeks after you pass the kidney stone, and every 6?12 months after that. ? Strain your urine every time you urinate, for as long as directed. Use the strainer that your health care provider recommends. ? Do not throw out the kidney stone after passing it. Keep the stone so it can be tested by your health care provider. Testing the makeup of your kidney stone may help prevent you from getting kidney stones in the future. ? Keep all follow-up visits. You may need follow-up X-rays or ultrasounds to make sure that your stone has passed. How is this prevented? To prevent another kidney stone: ? Drink enough fluid to keep your urine pale yellow. This is the best way to prevent kidney stones. ? Eat a healthy diet. Follow r (more content not included)... [facility] 03-05-2024 History of Present illness Narrative [address] [place] [address] Patient: Yani Joseph Date of : 1960 Encounter Date: 03/05/2024 History of Present Illness: The patient is a 64 y.o. female, an established patient, and is here for Chief Complaint Patient presents with BP . HPI Patient here for a recheck of her blood pressure. She was on steroids for several weeks due to chronic sinusitis per ENT. When she saw ENT back she had a CT of her head that showed severe chronic sinusitis in frontal and maxillary and nasal polyps. She is to have surgery with ENT through [facility] in June for removal of the polyps and clean out of her sinuses. Her septum is also deviated. She recently saw her construction sales representative in [place] who commented on her weight gain from the steroids and recommended that she lose weight but stated she had to see her PCP for medically monitored weight loss. She also recently saw her urologist who recommended lithotripsy for a persistent kidney stone and she sees them in March. Problem List Items Addressed This Visit Cardiovascular and Mediastinum Essential hypertension - Primary Respiratory Moderate persistent asthma without complication Nasal polyp Other Visit Diagnoses Class 1 obesity due to excess calories with serious comorbidity and body mass index (BMI) of 33.0 to 33.9 in adult Relevant Medications phentermine (ADIPEX-P) 37.5 mg tablet Past Medical, Family, and Social History Update: The following portions of the patient's history were reviewed and updated as appropriate: allergies, current medications, past family history, past medical history, past social history, past surgical history and problem list. Past Medical History: Diagnosis Date Asthma Kidney stones 02/02/2024 Pulmonary embolism ([facility]) Shortness of breath Sinusitis chronic, frontal 02/2024 Past Surgical History: Procedure Laterality Date APPENDECTOMY CHOLECYSTECTOMY HIATAL HERNIA REPAIR HYSTERECTOMY 1993 complete KNEE ARTHROSCOPY W/ DEBRIDEMENT Left 2013 OOPHORECTOMY Bilateral 1993 Current Outpatient Medications Medication Sig Dispense Refill alendronate (FOSAMAX) 70 mg tablet Take 1 tablet (70 mg total) by mouth every 7 days. In a.m. with water on empty stomach, nothing else by mouth and remain upright for 30min 4 tablet 11 aspirin 81 mg daily. cyproheptadine (PERIACTIN) 4 mg tablet take 1 tablet by mouth in the evening 90 tablet 1 fluticasone (FLONASE SENSIMIST) 27.5 mcg/actuation nasal spray 2 sprays in the morning. losartan (COZAAR) 50 mg tablet take 1 tablet by mouth daily 90 tablet 1 methIMAzole (TAPAZOLE) 10 mg tablet Take 1 tablet (10 mg total) by mouth 3 (three) times a week. montelukast (SINGULAIR) 10 mg tablet take 1 tablet by mouth every evening 90 tablet 2 SYMBICORT 160-4.5 mcg/actuation inhaler INHALE 2 PUFFS BY MOUTH TWICE DAILY 10.2 g 5 phentermine (ADIPEX-P) 37.5 mg tablet Take 1 tablet (37.5 mg total) by mouth every morning before breakfast. 30 tablet 0 No current facility-administered medications for this visit. (All medications reviewed and updated by provider since last office visit or hospitalization) Allergies: Patient has no known allergies. Tobacco History: Social History Tobacco Use Smoking Status Former Smokeless Tobacco Never (If patient a smoker, smoking cessation counseling offered) Social History: Social History Substance and Sexual Activity Alcohol Use Not Currently Review of Systems: Review of Systems Constitutional: Positive for unexpected weight change (3 lb weight loss since last appt). Negative for activity change and appetite change. HENT: Positive for congestion, postnasal drip, rhinorrhea, sinus pressure and sinus pain. Respiratory: Positive for shortness of breath and wheezing. Cardiovascular: Negative. Gastrointestinal: Positive for abdominal pain (Occasional heartburn symptoms). Allergic/Immunologic: Positive for environmental allergies. Neurological: Negative. Psychiatric/Behavioral: Negative. Physical Exam: BP 110/68 (BP Site: Left Arm, BP Postition: Sitting) Pulse 71 Temp 36.6 C (97.8 F) (Oral) Resp 20 Ht 165.4 cm (5' 5.12 ) Wt 90.4 kg (199 lb 6.4 oz) SpO2 97% BMI 33.06 kg/m Physical Exam Vitals reviewed. Constitutional: Appearance: Normal appearance. She is obese. HENT: Head: Normocephalic and atraumatic. Right Ear: Tympanic membrane, ear canal and external ear normal. Left Ear: Tympanic membrane, ear canal and external ear normal. Nose: Congestion and rhinorrhea present. Mouth/Throat: Mouth: Mucous membranes are moist. Eyes: Pupils: Pupils are equal, round, and reactive to light. Neck: Thyroid: No thyroid mass, thyromegaly or thyroid tenderness. Vascular: No carotid bruit. Cardiovascular: Rate and Rhythm: Normal rate and regular rhythm. Heart sounds: Normal heart sounds. Pulmonary: Effort: Pulmonary effort is normal. Breath sounds: Normal breath sounds. Abdominal: General: Abdomen is flat. Bowel sounds are normal. Palpations: Abdomen is soft. Tenderness: There is no abdominal tenderness. Musculoskeletal: General: Normal range of motion. Right lower leg: No edema. Left lower leg: No edema. Lymphadenopathy: Cervical: No cervical adenopathy. Skin: General: Skin is warm. Capillary Refill: Capillary refill takes less than 2 seconds. Neurological: General: No focal deficit present. Mental Status: She is alert and oriented to person, place, and time. Psychiatric: Mood and Affect: Mood normal. Behavior: Behavior normal. Thought Content: Thought content normal. Judgment: Judgment normal. Assessment and Plan: Yani was seen today for bp. Diagnoses and all orders for this visit: Essential hypertension Nasal polyp Class 1 obesity due to excess calories with serious comorbidity and body mass index (BMI) of 33.0 to 33.9 in adult - phentermine (ADIPEX-P) 37.5 mg tablet; Take 1 tablet (37.5 mg total) by mouth every morning before breakfast. Moderate persistent asthma without complication Follow-up: Blood pressure much better now that she is office steroids. No changes. Recommended that she take her Symbicort twice a day and rinse mouth after use, she is only taking it once a day and with the humidity she states she is using her rescue inhaler more. Start Adipex to help her lose more weight. Her construction sales representative stated at last appointment she is okay to take this with her hyperthyroidism as long as she is closely monitored by her PCP. Return to office in 1 month for recheck of her weight. She should try to increase her activity and use her rescue inhaler before exercise. MALI ESPINOZA APRN-CNP 03/05/24 0926 documented in this encounter [facility] 01-28-2024 History of Present illness [address]arrative [address] [facility] [address] Patient: Yani Joseph Date of : 1960 Encounter Date: 01/28/2024 History of Present Illness: The patient is a 63 y.o. female, an established patient, and is here for No chief complaint on file. . HPI Patient is here to follow-up on her chronic problems. After last appointment she was referred to medication aid Dr. Lino in [place] urine was offered Dupixent but due to the cost and insurance hopes patient instead decided to start several weeks of steroids. The medication aid also told her she had polyps in her nose. She then had to see ENT doctor Colt in [place] to obtain CT of her sinuses in order to qualify for the Dupixent. The ENT extended her steroid taper and placed her on 1 month of Augmentin for her sinus and asthma issues. She has gained 12 lb since starting the steroids due to the increased appetite. She is unsure if she will start the Dupixent with the medication aid. She has not needed her rescue inhaler for the duration she has been on the steroids. She also feels increased anxiety on the steroids. Problem List Items Addressed This Visit Cardiovascular and Mediastinum Essential hypertension Respiratory Moderate persistent asthma without complication Endocrine Graves' disease Other Visit Diagnoses Class 1 obesity due to excess calories without serious comorbidity with body mass index (BMI) of 33.0 to 33.9 in adult - Primary Gastroesophageal reflux disease, unspecified whether esophagitis present Past Medical, Family, and Social History Update: The following portions of the patient's history were reviewed and updated as appropriate: allergies, current medications, past family history, past medical history, past social history, past surgical history and problem list. Past Medical History: Diagnosis Date Asthma Pulmonary embolism ([facility]) Shortness of breath Past Surgical History: Procedure Laterality Date APPENDECTOMY CHOLECYSTECTOMY HIATAL HERNIA REPAIR HYSTERECTOMY 1993 complete KNEE ARTHROSCOPY W/ DEBRIDEMENT Left 2013 OOPHORECTOMY Bilateral 1993 Current Outpatient Medications Medication Sig Dispense Refill amoxicillin-pot clavulanate (AUGMENTIN) 875-125 mg per tablet Take 1 tablet by mouth in the morning and 1 tablet before bedtime. XHANCE 93 mcg/actuation aerosol breath activated Administer 1 spray into each nostril in the morning and 1 spray before bedtime. alendronate (FOSAMAX) 70 mg tablet Take 1 tablet (70 mg total) by mouth every 7 days. In a.m. with water on empty stomach, nothing else by mouth and remain upright for 30min 4 tablet 11 aspirin 81 mg daily. cyproheptadine (PERIACTIN) 4 mg tablet take 1 tablet by mouth in the evening 90 tablet 1 losartan (COZAAR) 50 mg tablet TAKE 1 TABLET BY MOUTH DAILY 90 tablet 1 methIMAzole (TAPAZOLE) 10 mg tablet Take 1 tablet (10 mg total) by mouth 3 (three) times a week. montelukast (SINGULAIR) 10 mg tablet take 1 tablet by mouth every evening 90 tablet 2 omeprazole (PriLOSEC) 20 mg capsule Take 1 capsule (20 mg total) by mouth in the morning. 14 capsule 1 SYMBICORT 160-4.5 mcg/actuation inhaler INHALE 2 PUFFS BY MOUTH TWICE DAILY 10.2 g 5 ubrogepant (UBRELVY) 100 mg tablet TAKE 1 TABLET BY MOUTH NEEDED FOR MIGRAINE, may repeat dose in 2 (TWO) HOURS for a max OF 200 mg/ day 10 tablet 1 No current facility-administered medications for this visit. (All medications reviewed and updated by provider since last office visit or hospitalization) Allergies: Patient has no known allergies. Tobacco History: Social History Tobacco Use Smoking Status Former Smokeless Tobacco Never (If patient a smoker, smoking cessation counseling offered) Social History: Social History Substance and Sexual Activity Alcohol Use None Review of Systems: Review of Systems Constitutional: Positive for appetite change and unexpected weight change (12 lb weight gain since last appointment). Negative for activity change. HENT: Positive for congestion, postnasal drip, rhinorrhea and sinus pressure. Respiratory: Positive for cough. Negative for chest tightness, shortness of breath and wheezing. Cardiovascular: Negative. Gastrointestinal: Positive for abdominal distention (Gas and bloating) and abdominal pain. Musculoskeletal: Positive for myalgias. Allergic/Immunologic: Positive for environmental allergies. Neurological: Negative. Psychiatric/Behavioral: Positive for agitation. Negative for decreased concentration, dysphoric mood, self-injury, sleep disturbance and suicidal ideas. The patient is nervous/anxious. Physical Exam: BP 152/82 (BP Site: Right Arm, BP Postition: Sitting) Pulse 91 Temp 36.7 C (98 F) (Oral) Resp 20 Ht 165.4 cm (5' 5.12 ) Wt 91.8 kg (202 lb 6.4 oz) SpO2 96% BMI 33.56 kg/m Physical Exam Vitals reviewed. Constitutional: Appearance: Normal appearance. She is obese. HENT: Head: Normocephalic and atraumatic. Mouth/Throat: Mouth: Mucous membranes are moist. Eyes: Pupils: Pupils are equal, round, and reactive to light. Neck: Thyroid: No thyroid mass, thyromegaly or thyroid tenderness. Vascular: No carotid bruit. Cardiovascular: Rate and Rhythm: Normal rate and regular rhythm. Heart sounds: Normal heart sounds. Pulmonary: Effort: Pulmonary effort is normal. Breath sounds: Normal breath sounds. Abdominal: General: Abdomen is flat. Bowel sounds are normal. Palpations: Abdomen is soft. Tenderness: There is no abdominal tenderness. Musculoskeletal: General: Normal range of motion. Right lower leg: Edema (trace shins) present. Left lower leg: Edema (trace shins) present. Lymphadenopathy: Cervical: No cervical adenopathy. Skin: General: Skin is warm. Capillary Refill: Capillary refill takes less than 2 seconds. Neurological: General: No focal deficit present. Mental Status: She is alert and oriented to person, place, and time. Psychiatric: Mood and Affect: Mood normal. Behavior: Behavior normal. Thought Content: Thought content normal. Judgment: Judgment normal. Assessment and Plan: Diagnoses and all orders for this visit: Class 1 obesity due to excess calories without serious comorbidity with body mass index (BMI) of 33.0 to 33.9 in adult Graves' disease Essential hypertension Moderate persistent asthma without complication Gastroesophageal reflux disease, unspecified whether esophagitis present Other orders - omeprazole (PriLOSEC) 20 mg capsule; Take 1 capsule (20 mg total) by mouth in the morning. Follow-up: It was recommended the patient start exercise regimen and cut portions and use healthier food choices for goal BMI of less than 25%. Her GERD is likely being caused by the prolonged use of steroids. Start PPI for the next 2-4 weeks and anti-reflux precautions. If her dyspepsia and GERD or not better by 4 weeks she is to let provider know. Patient has follow-up with her construction sales representative in the next 1 month. She should have her thyroid function tests rechecked due to the weight gain. Her blood pressure is elevated above goal today likely due to the prolonged steroids. She was asked to check blood pressure at home 2 to 3 times a week and return in 1 month for recheck. Her asthma is currently well controlled due to the steroids. If she starts using her rescue inhaler more than 3 times a week in the next several weeks would recommend increasing to triple therapy inhaler. Return to office in 1 month for blood pressure recheck. MALI ESPINOZA APRN-CNP 01/29/24 1015 documented in this encounter [facility] [employer] 11-25-2023 Hospital Discharge instructions Patient Education 11/25/2023 14:47:21 Kidney Stones, Ujyq-hb-Vzau Kidney Stones Kidney stones are rock-like masses [...] Follow these instructions at home: Medicines Take sbqt-vki-xvmgpeb and prescription medicines only as told by [...] provider. Document Revised: 05/06/2022 Document Reviewed: 05/06/2022 [employer] Patient Education 2022 Strikingly. Follow Up Care 11/19/2022 11:44:13 With:KADE RIOS, FLORINDA Blair, URL Address: [address] [place] [address] When:Within 1 Year(s) Comments:REGIS/NABIL [facility] History of Present illness Narrative Called patient to let her know there was an abnormality on the left breast and additional imaging is required. She understands and will call central scheduling to set this up today. Order sent for screening mammogram and diagnostic mammogram on left. MALI Espinoza 11/07/23 0906 documented in this encounter [employer] 06-15-2023 Evaluation note Encounter Date Diagnosis Assessment [...] Jun, History of sinusitis (ICD-10 - Z87.09) [facility] Other 09-18-2023 Evaluation note* Encounter Date Diagnosis [...] no improvement in 2 to 3 days [employer] [facility] Other 04-10-2023 Evaluation note* Encounter Date Diagnosis [...] see her for follow-up in 1 year [employer] [facility] Other 03-13-2023 Evaluation + Plan noteExtracted from: Title:ED Note Author:Riccardo Berry PA-C te:11/25/22 Asthma (J45.909: Unspecified asthma, uncomplicated) Pneumonia (J18.9: Pneumonia, unspecified organism) Orders: azithromycin, = 1 packet(s), Oral, As Directed, as directed on package labeling, X 5 day(s), # 6 tab(s), Refills(s) 0, Pharmacy: [facility], 165, cm, 11/25/22 9:56:00 EDT, Height/Length Dosing, 84.2, kg, 11/25/22 9:56:00 EDT, Weight Dosing benzonatate, 200 mg = 1 cap(s), Oral, TID, X 7 day(s), # 21 cap(s), Refills(s) 0, Pharmacy: [facility], 165, cm, 11/25/22 9:56:00 EDT, Height/Length Dosing, 84.2, kg, 11/25/22 9:56:00 EDT, Weight Dosing cefdinir, 300 mg = 1 cap(s), Oral, q12hr, X 10 day(s), # 20 cap(s), Refills(s) 0, Pharmacy: [facility], 165, cm, 11/25/22 9:56:00 EDT, Height/Length Dosing, 84.2, kg, 11/25/22 9:56:00 EDT, Weight Dosing ibuprofen, 800 mg = 1 tab(s), Tab, Oral, Once, Stop date 11/25/22 10:40:00 EDT, STAT, Start date 11/25/22 10:40:00 EDT, 11/25/22 10:40:00 EDT predniSONE, 60 mg = 3 tab(s), Oral, Daily, X 7 day(s), # 21 tab(s), Refills(s) 0, Pharmacy: [facility], 165, cm, 11/25/22 9:56:00 EDT, Height/Length Dosing, 84.2, kg, 11/25/22 9:56:00 EDT, Weight Dosing XR Chest 2 Views Future Appointments Appointment Date:11/25/2023 02:00:00 PM Scheduled Provider:FLORINDA PATRICIA PA-C Location:[facility] Appointment Type:URO Office Visit [facility]03-13-2023 Hospital Discharge instructions Patient Education 11/25/2022 10:50:57 [...] Follow these instructions at home: Medicines Take tmdv-vbc-itbfkrr and prescription medicines only as told by [...] and water are not available, use hand administrative secretary. Contact a health care provider if: You [...] 09/01/2006 Document Revised: 04/29/2019 Document Reviewed: 04/29/2019 [employer] Patient Education 2020 Strikingly. Follow Up Care 11/25/2022 09:44:57 With:GERA BURCIAGA Address: [address] [place] [address] Business (1) When:11/28/2022 10:41:38 [facility]03-08-2023 Evaluation note* Encounter Date Diagnosis Assessment Notes [...] days Nov, Sore throat (ICD-10 - J02.9) [employer] Other 03-07-2023 Hospital Discharge instructions Patient Education [...] you may eat and drink normally. Take jotg-iwx-enkdwyj and prescription medicines only as told by your health care provider. Let your health care provider know about any medicines that you are taking, including qbyd-gov-zkblsed medicines, vitamins, herbs, and supplements. Choose a [...] 11/28/2009 Document Revised: 12/20/2019 Document Reviewed: 09/14/2018 [employer] Patient Education 2020 Strikingly. Follow Up Care 07/29/2022 09:24:04 With:KADE RIOS, FLORINDA Pinto, JITENDRA Address: When:1 year [facility] 10-10-2022 Evaluation note* Encounter Date Diagnosis Assessment [...] treatment Jun, Restless sleeper (ICD-10 - G47.9) [employer] Other 08-05-2022 Evaluation + Plan note Future Scheduled Tests Radiology* XR IVP 04/19/22 [facility] 08-05-2022 Hospital Discharge instructions Patient Education 04/19/2022 09:06:45 Kidney Stones, Gkig-ui-Cknc Kidney Stones Kidney stones are rock-like masses [...] Follow these instructions at home: Medicines Take lnat-bki-cgivecf and prescription medicines only as told by [...] 02/17/2009 Document Revised: 01/18/2020 Document Reviewed: 01/18/2020 [employer] Patient Education 2020 Strikingly. Follow Up Care 04/02/2022 11:51:41 With:KASSIDY THORNE, Justin Peterson, URL Address: [address] [place], [place] [id number]- When: Unknown [facility] 07-17-2022 Evaluation + Plan noteExtracted from: Title:ED Note Author:Abilio Brambila, Iraida Knowles te:03/31/22 1. Left ureteral stone (N20. 1: Calculus of ureter) Ordered: acetaminophen-oxycodone, 1 tab(s), Oral, q6hr as needed for pain, 10 tab(s), Refill(s) 0, [facility], 165, cm, 03/30/22 21:43:00 EDT, Height/Length Dosing, 79.5, kg, 03/30/22 21:43:00 EDT, Weight Dosing 2. Urinary tract infection (N39.0: Urinary tract infection, site not specified) Orders: cephalexin, 500 mg = 1 cap(s), Oral, QID, X 7 day(s), # 28 cap(s), Refills(s) 0, Pharmacy: [facility], 165, cm, 03/30/22 21:43:00 EDT, Height/Length [...] Appointments Appointment Date:08/06/2022 02:15:00 PM Scheduled Provider:Misael VINES MD Location:[facility] [place] Appointment Type:URO Office Visit Diagnostic Tests Pending * Urine Culture 03/30/22 [facility]07-17-2022 Hospital Discharge instructions Patient Education 03/31/2022 02:46:45 [...] Treatment for this condition includes: Antibiotic medicine. Mqft-vts-sctfkmg medicines to treat discomfort. Drinking enough water [...] Follow these instructions at home: Medicines Take lgop-ncn-rqgctck and prescription medicines only as told by [...] 06/11/2006 Document Revised: 08/19/2019 Document Reviewed: 03/11/2019 [employer] Patient Education 2020 Strikingly. 03/31/2022 02:46:45 Kidney Stones Kidney Stones Kidney [...] Follow these instructions at home: Medicines Take hwja-pvq-scfiujd and prescription medicines only as told by [...] Kidney Foundation (NKF): www.kidney.org Urology Care Foundation (F): www.urologyhealth.org Contact a health care provider if: [...] 09/01/2006 Document Revised: 01/18/2020 Document Reviewed: 01/18/2020 [employer] Patient Education 2020 Strikingly. Follow Up Care 03/30/2022 21:24:27 With:Justin YI Address: [facility] [address] [place] [address]- Business (1) When:04/03/2022 Comments:Return to the emergency room if your pain gets worse or any new symptoms With:GERA CLARKESOHAILCRISTOBAL Address: [facility] [place] [address] Business (1) When:Within 3 Day(s) [facility]06-16-2022 NotePROCEDURE: XR ANKLE RT MIN 3 VIEWS, XR FOOT RT MIN 3 VIEWS HISTORY: Pain COMPARISON: XR ankle right 02/27/2022 FINDINGS: BONES:No fracture, acute abnormality, or significant arthropathy. SOFT TISSUES:No visible soft tissue swelling. EFFUSION:None visible. OTHER: Negative. IMPRESSION: 1. No acute bone abnormality or significant degenerative changes of the right ankle and foot. Electronically authenticated by: ARVIN MONTEIRO Date: 2022-02-28 18:02[facility]06-16-2022 NotePROCEDURE: XR ANKLE RT MIN 3 VIEWS, XR FOOT RT MIN 3 VIEWS HISTORY: Pain COMPARISON: XR ankle right 02/27/2022 FINDINGS: BONES:No fracture, acute abnormality, or significant arthropathy. SOFT TISSUES:No visible soft tissue swelling. EFFUSION:None visible. OTHER: Negative. IMPRESSION: 1. No acute bone abnormality or significant degenerative changes of the right ankle and foot. Electronically authenticated by: ARVIN MONTEIRO Date: 2022-02-28 18:02[facility]06-15-2022 NotePROCEDURE: XR ANKLE RT MIN 3 [...] Electronically authenticated by: ARVIN MONTEIRO Date: 2022-02-27 15:16[facility]05-23-2022 Hospital Discharge instructions Patient Education 02/04/2022 [...] Up Care 01/25/2022 13:36:51 With:Misael NIKA Address: [address] [place], [place] [id number] [facility] (1) When:6 months Comments:Call for followup appointment with an abdominal X-ray prior to your visit. Have a great day! [facility]05-12-2022 Hospital Discharge instructions Patient Education 01/24/2022 15:47:58 [...] Follow these instructions at home: Medicines Take caln-hdd-tdqnfbv and prescription medicines only as told by [...] 09/01/2006 Document Revised: 01/18/2020 Document Reviewed: 01/18/2020 [employer] Patient Education 2020 Strikingly. Follow Up Care 01/24/2022 06:02:33 With:Misael VINES Address: [address] [place] [address]- Business (1) When: Unknown Comments:Call for followup appointment with an abdominal x-RAY prior to your visit. With:GERA CLARKEKOMAL Address: [address] [place] [address] Business (1) When: Unknown [facility]05-12-2022 Evaluation + Plan noteExtracted from: Title:Urology Consult and H&P 2 Author:Misael VINES MD Date:01/24/22 Impression and Plan Diagnosis Renal calculi (KCY17-CV N20.0, Discharge, Medical). Hydronephrosis with ureteral calculus (NBJ28-NI N13.2, Working, Medical). Complaint of Flank pain (PNED [id number], Reason For Visit, Nursing). Course: Worsening, overall [...] Extracted from: Title:Admission H & P Author:MUKUL DIXON-Nicholas FLORES Date:01/24/22 1. Renal calculi (N20.0: Reema culus of kidney) CT abdomen/pelvis: Calculus distal [...] made to ensure accuracy, however, inadvertently computerized operations supervisor 2nd shift mistakes may be present. Extracted from: Title:ED [...] Future Appointments Appointment Date:01/30/2022 09:45:00 AM Scheduled Provider:Jose THORNE, Nohemi Boothe Location:[facility] Appointment Type:URO New Patient Diagnostic Tests Pending * Calculi Analysis Urinary 01/24/22 [facility]05-02-2022 Evaluation note* Encounter Date Diagnosis Assessment Notes [...] days. January, Hematuria, unspecified (ICD-10 - R31.9) [facility] [email or web address] Other 10-28-2021 Evaluation note* Encounter Date Diagnosis [...] Patient care instructions given in writting by [facility] Care At Home document. [employer] Other Evaluation + Plan note No data available for this section [facility] Future Appointments Appointment Date:02/04/2022 02:30:00 PM Scheduled Provider: Location:[facility] Appointment Type:Urology FT [facility] evaluation + Plan note Future Appointments Appointment Date:08/06/2022 02:15:00 PM Scheduled Provider:Misael VINES MD Location:[facility] Appointment Type:URO [facility] Future Appointments Appointment Date:11/25/2023 02:00:00 PM Scheduled Provider:FLORINDA PATRICIA PA-C Location:[facility] Appointment Type:URO Office Visit [facility] evaluation + Plan note Future Appointments Appointment Date:03/08/2025 08:20:00 AM Scheduled Provider:FLORINDA PATRICIA PA-C Location:[facility] Appointment Type:URO Office Visit Future Scheduled Tests Radiology* XR Abdomen 1 View 01/24/25 * US Renal 01/24/25 [facility] evaluation + Plan note Future Appointments Appointment Date:03/08/2025 08:20:00 AM Scheduled Provider:FLORINDA PATRICIA PA-C Location:[facility] Appointment Type:URO Office Visit Diagnostic Tests Pending * T3 Free 02/10/24 Future Scheduled Tests Radiology* XR Abdomen 1 View 01/24/25 * US Renal 01/24/25 [facility] [place] [facility] Future Appointments Appointment Date:03/11/2024 12:40:00 PM Scheduled Provider:FLORINDA PATRICIA PA-C [facility] Appointment Type:URO Office Visit Appointment Date:03/08/2025 08:20:00 AM Scheduled Provider:FLORINDA PATRICIA PA-C Location:[facility] Appointment Type:URO Office Visit Future Scheduled Tests Radiology* XR Abdomen 1 View 01/24/25 * US Renal 01/24/25 [facility] evaluation noteNo assessment information available [facility] Work Phone: evaluation note* Diagnosis Onset Date Resolution Status BMI 33.0-33.9,adult acute Depression acute HTN (hypertension) acute Migraine headache acute Obstructive sleep apnea acut e Restless sleeper acute [facility] Work Phone: Evaluation note* Diagnosis Chronic ethmoidal sinusitis- Primary Surgery, elective Unspecified elective surgery for purposes other than remedying health states Chronic ethmoidal sinusitis HTN (hypertension), benign Essential hypertension, benign Deviated nasal septum Deviated nasal septum HTN (hypertension) Unspecified essential hypertension Asthma Unspecified asthma LILO (obstructive sleep apnea) Obstructive sleep apnea (adult) (pediatric) History of migraine headaches Nephrolithiasis Calculus of kidney Gastroesophageal reflux disease Esophageal reflux Hiatal hernia Diaphragmatic hernia without mention of obstruction or gangrene Hyperthyroidism Thyrotoxicosis without mention of goiter or other cause, without mention of thyrotoxic crisis or storm documented in this encounter [facility] Work Phone: Evaluation note* Diagnosis Chronic ethmoidal sinusitis- Primary Nasal polyp Unspecified nasal polyp Nasal congestion with rhinorrhea Other diseases of nasal cavity and sinuses documented in this encounter [facility] Work Phone: Evaluation note* Diagnosis Chronic ethmoidal sinusitis- Primary Nasal polyp Unspecified nasal polyp Nasal congestion with rhinorrhea Other diseases of nasal cavity and sinuses documented in this encounter [facility] Work Phone: Evaluation note* Diagnosis Chronic ethmoidal sinusitis- Primary Decreased sense of smell Disturbances of sensation of smell and taste documented in this encounter [facility] Work Phone: Evaluation note* Diagnosis Personal history of adenomatous and serrated colon polyps- Primary Allergic rhinitis, unspecified Personal history of adenomatous and serrated colon polyps documented in this encounter [facility]* Diagnosis Encounter for screening mammogram for malignant neoplasm of breast- Primary [facility]* Diagnosis Class 1 obesity due to excess calories without serious comorbidity with body mass index (BMI) of 33.0 to 33.9 in adult- Primary Graves' disease 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 crisis or storm Essential hypertension Unspecified essential hypertension Moderate persistent asthma without complication Gastroesophageal reflux disease, unspecified whether esophagitis present documented in this [facility]* Diagnosis Essential (primary) hypertension Unspecified essential hypertension [facility] Diagnosis Essential hypertension- Primary Unspecified essential hypertension Nasal polyp Unspecified nasal polyp Class 1 obesity due to excess calories with serious comorbidity and body mass index (BMI) of 33.0 to 33.9 in adult Moderate persistent asthma without complication [facility] Diagnosis Abnormal mammogram of left breast- Primary [facility]* Diagnosis Class 1 obesity due to excess calories with serious comorbidity and body mass index (BMI) of 31.0 to 31.9 in adult- Primary Class 1 obesity due to excess calories with serious comorbidity and body mass index (BMI) of 33.0 to 33.9 in adult LILO (obstructive sleep apnea) Obstructive sleep apnea (adult) (pediatric) [facility]* Diagnosis Migraine without aura, not intractable, without status migrainosus [facility]* Diagnosis Allergic rhinitis, unspecified [facility]* Diagnosis Wellness examination- Primary Class 1 obesity due to excess calories with serious comorbidity and body mass index (BMI) of 33.0 to 33.9 in adult LILO (obstructive sleep apnea) Obstructive sleep apnea (adult) (pediatric) Encounter for screening colonoscopy History of colon polyps [facility]* Diagnosis Osteoporosis without current pathological fracture, unspecified osteoporosis type History of colon polyps [facility]* Diagnosis LILO (obstructive sleep apnea)- Primary Obstructive sleep apnea (adult) (pediatric) Influenza vaccination administered at current visit Class 1 obesity due to excess calories with serious comorbidity and body mass index (BMI) of 33.0 to 33.9 in adult History of colon polyps [facility]* Diagnosis Migraine without aura, not intractable, without status migrainosus History of colon polyps [facility]* Diagnosis LILO (obstructive sleep apnea) Obstructive sleep apnea (adult) (pediatric) History of colon polyps [facility]* Diagnosis Encounter for screening mammogram for malignant neoplasm of breast- Primary [facility]* Diagnosis Migraine without aura, not intractable, without status migrainosus documented in this encounter [facility]* Diagnosis Chronic ethmoidal sinusitis- Primary Decreased sense of smell Disturbances of sensation of smell and taste Nasal polyp Unspecified nasal polyp documented in this encounter [facility] Work Phone: Evaluation note* Diagnosis Mid back pain on left side- Primary Neck pain Cervicalgia documented [facility]* Diagnosis Thoracic spondylosis without myelopathy- Primary [facility]* Diagnosis LILO (obstructive sleep apnea)- Primary Obstructive sleep apnea (adult) (pediatric) BMI 30.0-30.9,adult Obesity (BMI 30-39.9) Difficulty with CPAP use [facility]* Diagnosis Community acquired pneumonia of right upper lobe of lung- Primary Hiatal hernia Diaphragmatic hernia without mention of obstruction or gangrene Obstructive sleep apnea Obstructive sleep apnea (adult) (pediatric) documented [facility]* Diagnosis Essential (primary) hypertension Unspecified essential hypertension [facility] - [facility]* Type Description Date Medical History HTN (hypertension) Medical History Hypercholesterolemia Medical History Migraine headache Medical History HX of PE Medical History Anxiety Medical History Depression Medical History hyperthyroidism Surgical History hysterectomy Surgical History cholecystectomy Surgical History hiatal hernia repair Surgical History left knee torn meniscus Hospitalization History headaches Hospitalization History see above Hospitalization History blood clots Hospitalization History asthma [employer] Other [employer] general Narrative - Reported* Type Description Date [...] Hospitalization History blood clots Hospitalization History asthma [employer] Other Hospital Discharge instructions No data available for this section [facility]ructions[facility] on filedocumented in this encounter [facility]Not on filedocumented in this encounter [facility] SystemInstructionsNot on filedocumented in this encounter [facility] SystemInstructionsNot on filedocumented in this encounter [facility] [...] on filedocumented in this encounter [facility]* Attachments The following attachments cannot be sent through Care Everywhere. * Influenza Vaccine (Inactivated) Information Statement (VIS) (Bolivian) documented [facility] SystemInstructionsNot on file documented in this encounterPro[facility] SystemInstructionsNot on file documented in this encounterPro[facility] SystemInstructionsNot on file documented in this encounterPro[facility] Health SystemInstructionsNot on file documented in this encounterPro[facility] Health SystemInstructionsNot on file documented in this encounterPro[facility] SystemProgress note No data available for this section [facility] Narrative* Auth/Cert Specialty Diagnoses / Procedures Referred By Dio t Referred To Contact Diagnoses Deviated nasal septum Chronic ethmoidal sinusitis Deviated nasal septum [J34.2] Chronic ethmoidal sinusitis [J32.2] Procedures WI NSL/SINUS NDSC MAX ANTROST W/RMVL TISS MAX SINUS WI NASAL/SINUS NDSC W/RMVL TISS FROM FRONTAL SINUS WI NASAL/SINUS NDSC SURG W/LOR BULLOSA RESECTION WI SEPTOPLASTY/SUBMUCOUS RESECJ W/WO CARTILAGE GRF WI STRTCTC CPTR ASSTD PX EXTRADURAL CRANIAL WI NASAL/SINUS NDSC TOT W/SPHENDT W/SPHEN TISS RMVL WI SUBMUCOUS RESCJ INFERIOR TURBINATE PRTL/COMPL Nasal Endoscopy with Excision Tissue Maxillary Sinus Nasal Endoscopy with Excision Tissue Frontal Sinus Excision Nasal Turbinate Repair Septum Nasal Cavity Navigation-Assisted Surgery Toni Bansal MD [address] [facility] [address] [place] [address] [facility] [place] [address] [place] [address] Referral ID Status Reason Start Date Expiration Date Visits Re quested Visits Authorized [id number] 1 1 [facility] Work Phone: Reason for visit Narrative* Misc (Routine) - Closed Specialty Diagnoses / Procedures Referred By Contac t Referred To Contact Diagnoses LILO (obstructive sleep apnea) Procedures Home sleep study Barabra Peters, STREET SWEEPER-GENERAL PRACTITIONER [address] [place] [address] Phone: tel: fax: Referral ID Status Reason Start Date Expiration Date Visits Re quested Visits Authorized [id number] Closed 06/24/2024 06/24/2025 1 1 [employer] Summary Purpose Family History No Family History Records Found Relationship Condition Age at Onset Recorded Date/T feroz father Diabetes mellitus Unknown Unknown Malignant neoplasm Unknown Not Specified Family history of mental disorder Unknow n Diabetes mellitus Unknown History of stroke Unknown Relationship Condition Age at Onset Recorded Date/T feroz father Diabetes mellitus Unknown Unknown Malignant neoplasm Unknown mother Family history of mental disorder Unknown Diabetes mellitus Unknown History of stroke Unknown Advance Directives No Advanced Directives Records Found Advance Directive Response Recorded Date/ Time Advance Directives No April 06 12:33pm Advance Directive Response Recorded Date/ Time Advance Directives No April 06 11:33am Advance Directive Response Recorded Date/ Time Advance Directives No December 28, 2 024 3:45pm Date Activated Date Inactivated Comments 01/17/2025 1:25 PM 01/18/2025 4:16 PM Chief Complaint and Reason for Visit Chief Complaint i51.9 Chief Complaint i51.9 Unspecified sleep apnea Chief Complaint LILO/ANNUAL Reason for Visit BMI 33.0-33.9,adult Depression HTN (hypertension) Migraine headache Obstructive sleep apnea Restless sleeper Chief Complaint Admit Date Unknown December 13, 2024 11: 03am Reason for Referral Specialty Diagnoses / Procedures Referred By Contac t Referred To Contact Diagnoses LILO (obstructive sleep apnea) Procedures Home sleep study Barbara Peters, STREET SWEEPER-GENERAL PRACTITIONER [address] [place] [address] Referral ID Status Reason Start Date Expiration Date V isits Requested Visits Authorized [id number] Pending Review 06/24/2024 06/24/2025 1 1 Additional Source Comments INFORMATION SOURCE (unrecogn ized section and content) DATE CREATED AUTHOR 01/13/2022 [facility] DATE CREATED AUTHOR AUTHOR'S ORGANIZ ATION 06/24/2022 [facility] DATE CREATED AUTHOR AUTHOR'S ORGANIZ ATION 12/22/2022 [facility] pital DATE CREATED AUTHOR AUTHOR'S ORGANIZ ATION 02/11/2024 [facility] DATE CREATED AUTHOR AUTHOR'S ORGANIZ ATION 02/26/2024 [facility] DATE CREATED AUTHOR AUTHOR'S ORGANIZ ATION 03/12/2024 [facility] DATE CREATED AUTHOR AUTHOR'S ORGANIZ ATION 05/08/2024 [facility] DATE CREATED AUTHOR AUTHOR'S ORGANIZ ATION 07/03/2024 [facility] DATE CREATED AUTHOR AUTHOR'S ORGANIZ ATION 12/15/2024 [facility] DATE CREATED AUTHOR AUTHOR'S ORGANIZ ATION 12/19/2024 [facility] DATE CREATED AUTHOR AUTHOR'S ORGANIZ ATION 01/28/2025 [facility] DATE CREATED AUTHOR AUTHOR'S ORGANIZ ATION 02/13/2025 [facility] DATE CREATED AUTHOR AUTHOR'S ORGANIZ ATION 02/19/2025 [facility] REASON FOR VISIT (unrecogniz ed section and content) Reason Comments Post-op Reason Comments Follow-up Reason Comments Med Refill Reason Comments BP Reason Comments Weight Check Reason Comments Annual Exam Reason Comments Weight Check Reason Onset Date Comments Sleep Lab 07/07/2024 HST Reason Comments back pain/ was at [facility] Reason Comments Back Pain Extremity Pain Reason Comments New Patient HST: 07/28/2024On Cu rrent PAP therapyDME:[facility] Sleep [facility] Reason Comments TCM from H Care Team (unrecognized sect ion and content) Team Status: Inactive Member Role Status Dates Gera Burciaga DO Primary Care Provider Active NABEEL Aguilar ASSISTANT ACCOUNT MANAGER-C Attending Provider Active Team Status: Active Member Role Status Dates Gera Burciaga DO Primary Care Provider Active Team Status: Inactive Member Role Status Dates Gera Burciaga DO Primary Care Provider Active Caitlyn Long MD Attending Provider Active Team Status: Inactive Member Role Status Dates Gera Burciaga DO Primary Care Provider Active Start: December 29, 2023 End: December 29, 2023 Teena Jimenez NP Attending Provider Active Start: December 29, 2023 End: December 29, 2023 Measurement Supervisor Relationship Specialty Start Date End Date Fran Barbara Jackson [address] SWEEPER-GENERAL PRACTITIONER [address] [place] [address] PCP - General Internal Medicine 02/20/23 Measurement Supervisor Relationship Specialty Start Date End Date Barbara Peters [address] SWEEPER-GENERAL PRACTITIONER [address] [place] [address] PCP - General Internal Medicine 02/20/23 Measurement Supervisor Relationship Specialty Start Date End Date Barbara Peters [address] SWEEPER-GENERAL PRACTITIONER [address] [place], [place] [id number] PCP - General Internal Medicine 02/20/23 Measurement Supervisor Relationship Specialty Start Date End Date Barbara Peters [address] [employer]ITION[employer] [address] [place] [address] PCP - General Internal Medicine 02/20/23 Measurement Supervisor Relationship Specialty Start Date End Date Barbara Peters [address] [employer]ITIONER [address] [place] [address] PCP - General Internal Medicine 02/20/23 Measurement Supervisor Relationship Specialty Start Date End Date Barbara Peters [address] [employer]ITION[employer] [address] [place] [address] PCP - General Internal Medicine 02/20/23 Measurement Supervisor Relationship Specialty Start Date End Date Barbara Peters [address] [employer]ACTITIONER [address] [place] [address] PCP - General Internal Medicine 02/20/23 Measurement Supervisor Relationship Specialty Start Date End Date Barbara Peters [address] [employer]GENER[employer] PRACTITIONER [address] [place] [address] PCP - General Internal Medicine 02/20/23 Measurement Supervisor Relationship Specialty Start Date End Date [facility] [address] [place] [address] PCP - General Internal Medicine 02/20/23 Measurement Supervisor Relationship Specialty Start Date End Date Barbara Peters [address] SWEEPER-[facility] [address] [place] [address] PCP - General Internal Medicine 02/20/23 Measurement Supervisor Relationship Specialty Start Date End Date Barbara Peters [address] SWEEPERGENERAL PRACTITIONER [address] [place] [address] PCP - General Internal Medicine 02/20/23 Measurement Supervisor Relationship Specialty Start Date End Date FranBarbara [address] SWEEPERGENERAL PRACTITIONER [address] [place] [address] PCP - General Internal Medicine 02/20/23 Measurement Supervisor Relationship Specialty Start Date End Date Barbara Peters [address] [employer]EE[employer]GENERAL PRACTITIONER [address] [place] [address] PCP - General Internal Medicine 02/20/23 Measurement Supervisor Relationship Specialty Start Date End Date Barbara Peters [address] [employer]ITION[employer] [address] [place] [address] PCP - General Internal Medicine 02/20/23 Measurement Supervisor Relationship Specialty Start Date End Date Barbara Peters [address] [employer]GENER[employer]ACTITIONER [address] [place] [address] PCP - General Internal Medicine 02/20/23 Team Status: Inactive Member Role Status Dates Thom España DO Attending Provider Active S tart: December 13, 2024 End: December 13, 2024 Measurement Supervisor Relationship Specialty Start Date End Date FranBarbara henley [address] SWEE[employer]GENERAL [employer]ACTITIONER [address] [place] [address] PCP - General Internal Medicine 02/20/23 Measurement Supervisor Relationship Specialty Start Date End Date FranBarbara [address] [employer]GENERAL [employer]ACTITIONER [address] [place] [address] PCP - General Family Medicine 01/17/25 Measurement Supervisor Relationship Specialty Start Date End Date Barbara Peters [address] [employer]GENERAL [employer]ACTITIONER [address] [place] [address] PCP - General Family Medicine 01/17/25 Measurement Supervisor Relationship Specialty Start Date End Date FranNilaBarbara Renetta [address] SWEE[employer]GENERAL [employer]ACTITIONER [address] [place] [address] PCP - General Family Medicine 01/17/25 Goals (unrecognized section and content) Goals may be documented in a n alternate section Scheduled Active and Recently Administ ered Medications (unrecognized section and content) Medication Order 06/15/2024 06/16/2024 06/17/2024 aprepitant (Emend) capsule 40 mg 40 mg, oral, Daily, First dose on Lorraine 06/17/24 at 1230, Preprocedure 1230 (Due) oxygen (O2) therapy inhalation, Continuous - , First dose on Lorraine 06/17/24 at 1245, Recovery (only), Device: Nasal Cannula, Rate in liters per minute: 2 LPM, Keep O2 Sat Above: 92% 1245 (Due) Continuous Medication Order 06/15/2024 06/16/2024 06/17/2024 lactated Ringer's infusion 20 mL/hr, intravenous, Continuous, Starting on Lorraine 06/17/24 at 0715, Preprocedure 0717 (New Bag - Prov ider: Janine Menchaca RN)0737 (Paused - Provider: KEITH Gan - Comment: Switch to gravity)0738 (New Bag - Provider: KEITH Gan)0740 (Canceled Entry - Provider: KEITH Gan - Comment: Switch to gravity)0741 (New Bag - Provider: KEITH Gan)1140 (Stopped - Provider: KEITH Gan)1200 (Continued from OR - Provider: Malena Jaramillo RN)1315 (Stopped - Provider: Reanna Peterson RN) lactated Ringer's infusion 100 mL/hr, intravenous, Continuous, Starting on Lorraine 06/17/24 at 1245, Recovery (only) 1245 (Due) PRN Medication Order 06/15/2024 06/16/2024 06/17/2024 acetaminophen (Tylenol) tablet 650 mg 650 mg, oral, Every 4 hours PRN, pain mild (1-3), first line, Starting on Lorraine 06/17/24 at 1224, Recovery (only), When able to take oral medications., If ordered PRN for pain, nurse is permitted to administer this medication for higher pain scores based on patient preference? Yes albuterol 2.5 mg /3 mL (0.083 %) nebulizer solution 2.5 mg 2.5 mg, nebulization, Once as needed, wheezing, Starting on Lorraine 06/17/24 at 1224, For 1 dose, Recovery (only) diphenhydrAMINE (BENADryl) injection 12.5 mg 12.5 mg, intravenous, Once as needed, itching, allergic reaction, Starting on Lorraine 06/17/24 at 1224, For 1 dose, Recovery (only) fentaNYL PF (Sublimaze) injection 25 mcg 25 mcg, intravenous, Every 5 min PRN, pain moderate (4-6), first line, Starting on Lorraine 06/17/24 at 1224, Recovery (only), Max total of 200 micrograms regardless of dose., If ordered PRN for pain, nurse is permitted to administer this medication for higher pain scores based on patient preference? Yes fentaNYL PF (Sublimaze) injection 50 mcg 50 mcg, intravenous, Every 5 min PRN, pain severe (7-10), first line, Starting on Lorraine 06/17/24 at 1224, Recovery (only), Max total of 200 micrograms regardless of dose., If ordered PRN for pain, nurse is permitted to administer this medication for higher pain scores based on patient preference? Yes lidocaine-epinephrine (Xylocaine W/EPI) 1 %-1:100,000 injection (CANCELED) As needed, Starting on Lorraine 06/17/24 at 0829, Intraprocedure 0829 (Given - Provid er: Toni Bansal MD - Comment: NOSE) mupirocin (Bactroban) 2 % ointment (CANCELED) As needed, Starting on Lorraine 06/17/24 at 1050, Intraprocedure 1050 (Given - Provid er: Toni Bansal MD - Comment: NASAL SPLINT) ondansetron (Zofran) injection 4 mg 4 mg, intravenous, Once as needed, nausea/vomiting, first line, Starting on Lorraine 06/17/24 at 1224, For 1 dose, Recovery (only), When administering via IV Push, administer over 3-5 minutes. oxyCODONE (Roxicodone) immediate release tablet 10 mg 10 mg, oral, Every 4 hours PRN, pain severe (7-10), second line, Starting on Lorraine 06/17/24 at 1224, Recovery (only), When able to take oral medications., If ordered PRN for pain, nurse is permitted to administer this medication for higher pain scores based on patient preference? Yes oxyCODONE (Roxicodone) immediate release tablet 5 mg 5 mg, oral, Every 4 hours PRN, pain moderate (4-6), second line, Starting on Lorraine 10/12/06 at 1224, Recovery (only), When able to take oral medications., If ordered PRN for pain, nurse is permitted to administer this medication for higher pain scores based on patient preference? Yes 1255 (Given - Provid er: Malena Jaramillo RN) oxymetazoline (Afrin) 0.05 % nasal spray (CANCELED) As needed, Starting on Lorraine 06/17/24 at 0830, Intraprocedure 0830 (Given - Provid er: Toni Bansal MD) sodium chloride 0.9 % irrigation solution (CANCELED) As needed, Starting on Lorraine 1024 at 0830, Intraprocedure 0830 (Given - Provid er: Toni Bansal MD)1117 (Given - Provider: Toni Bansal MD) sodium chloride 0.9 % irrigation solution (CANCELED) As needed, Starting on Lorraine 1024 at 0830, Intraprocedure 0830 (Given - Provid er: Toni Bansal MD - Comment: MICRODEBRIDER IRRIGATION) FOR RECORDS PERTAINING TO PATIENTS WHO ARE [...] BE BASED ON THE PRIMARY CLINICAL RECORDS. [facility]. provides no warranty or guarantee of the accuracy or completeness of information in this document.
== END 2025-02-21 15:16 | disposition home or self-care (01) ==
LOC: LAB 15:19
PROVIDERS: PCP Family Medicine; Visit Provider Internal Medicine
DX: E05.90 Thyrotoxicosis, unspecified without thyrotoxic crisis or storm (principal); E05.00 Thyrotoxicosis with diffuse goiter without thyrotoxic crisis or storm
CPT/HCPCS: 36415; 84439; 84443; 84481

== ENCOUNTER 2025-03-04 07:27 | Outpatient (OUT) | payer OTHER, SELFPAY ==
--- OUTSIDE RECORDS SUMMARY | 2025-03-02 09:00 | XMS_ITS | Encounter Summary ---
Author Organization [facility] Address [address] [place] [address] Care Team Providers Care Document Control Specialist Name Role Phone Gera Teresa MD Primary Care Provider [phone] Reason for Visit * Reason Comments Thyroid Problem Follow-up LAB Encounter Details Date Type Department Care Team (Late st Contact Info) Description 03/02/2025 9:00 AM EDT Office Visit [facility] [address] [place] [address] Manju Solo MD [address] [place] [address] Graves' disease (Primary Dx); Hyperthyroidism ; Multinodular goiter Social History Tobacco Use Types Packs/Day Years Used Date Smoking Tobacco: Former Smokeless Tobacco: Never Alcohol Use Standard Drinks/Week Comments Yes 0 (1 standard drink = 0.6 oz pur e alcohol) Socially Comments Unknown Sex and Gender Information Value Date Recorded Sex Assigned at Female 01/05/2024 9:30 PM EDT Legal Sex Female 11:38 PM EDT Gender Identity Female 01/05/2024 9:30 PM EDT Sexual Orientation Not on file documented as of this encounter Last Filed Vital Signs Vital Sign Reading Time Taken Comments Blood Pressure 132/84 03/02/2025 8:59 AM EDT Pulse 66 03/02/2025 8:59 AM EDT Temperature - - Respiratory Rate 16 03/02/2025 8:59 AM EDT Oxygen Saturation 94% 03/02/2025 8:59 AM EDT Inhaled Oxygen Concentration - - Weight 84.4 kg (186 lb) 03/02/2025 8:59 AM EDT Height 165.1 cm (5' 5 ) 03/02/2025 8:59 AM EDT Body Mass Index 30.95 03/02/2025 8:59 AM EDT documented in this encounter Progress Notes * Manju Solo MD - 03/02/2025 9:00 AM EDT Yani Reece is a 65 y.o. female No ref. provider found presents with chief complaint of Thyroid Problem and Follow-up (LAB) HPI: Interim History: 02/2025 Follow-up visit of 03/02/2025 for Graves' disease. She is on methimazole now 10 mg 3 days a week. New labs; free T3 at 2.85 (2.1803.98), TSH 0.03, and free T4 at 1.35(0.76-1.48. Interim History: 02/2024 Follow-up visit of 03/02/2023 for Graves' disease. She is on methimazole now 10 mg 3 days a week. New labs; free T3 at 2.8 (2-4.4), TSH 1.05, and free T4 at 1.61(0.8-1.8), all within normal limits. HFP WNL. Interim History: 02/2023. Follow-up visit of 03/03/2023 for Graves' disease. She is on methimazole now 10 mg 3 days a week. New labs; free T3 at 2.83 (2-4.4), TSH 1.05, and free T4 at 1.4(0.8-1.8), all within normal limits. HFP WNL. Interim History: 02/2022. Follow-up visit of 02/27/2022 for Graves' disease. She is on methimazole now 10 mg 3 days a week. New labs; free T3 at 3.2 (2-4.4), TSH 1.02, and free T4 at 1.5(0.8-1.8), all within normal limits. HFPWNL. Interim History: 02/2021. Follow-up visit of 2021 for Graves' disease. She is on methimazole now 10 mg 4 days a week. New labs; free T3 at 2.7 (2-4.4), TSH 0.82, and free T4 at 0.82, all within normal limits. Alkaline phosphatase better 129 (21-98), ALT 48 (6-46), AST normal at 32 Interim History: 08/2020. Follow-up visit of 08/28/2020 for Graves' disease. She is on methimazole now 10 mg 4 days a week. New labs; free T3 at 3.1 (2-4.4), TSH 1.58, and free T4 at 0.33, all within normal limits. Alkaline phosphatase still high 192 (21-98), ALT 76 mildly high (6-46), AST normal at 43 Interim History: 02/2020. Follow-up visit of 03/08/2020 for Graves' disease. She is on methimazole now 10 mg 5 days a week. New labs; free T3 at 3.2 (2-4.4), TSH 2.8, and free T4 at 1.03, all within normal limits. Alkaline phosphatase much better than before 118 (21-98), ALT 51 mildly high (6-46), AST normal at 39, and she is following Dr. 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 Reddy in [place] and everything has been in good range so far. Interim History: 11/2019 Follow-up visit on 11/29/2019 for hyperthyroidism due to Graves' disease. Labs within normal limits. TSH 4.88, free T4 0.9, and free T3 at 3.85. Liver enzyme much better than before. AST 63, ALT 71, alkaline phosphatase still high, but better than before at 322 with isoenzymes; liver 71%, bone 27%,and intestine 2%. She went to [facility] for evaluation and now she plans to go to see maintenance machine repairer for another findings during her CT on her kidney. Clinically, she is euthyroid and much better. Interim History 09/2019: Followup visit 09/27/2019 for hyperthyroidism. Thyroid function within normal limits. TSH 3.38, freeT4 0.88, free T3 3.32, but incidentally liver enzyme is high, AST 93 (10-42), ALT 145 (10-62), alkaline phosphatase 538 (32-92). With deep questioning, it was found that she has couple years ago, sheis saying more than 10 years, they told her you have some liver issues and then never paid attention. She has extensive family history of liver disease. Interim History 06/03: Followup visit 06/07/2019. She is on methimazole 10 mg once a day gained 4 pounds since last visit in six weeks and TSH still suppressed at 0.01, free T4 mildly high at 1.31, free T3 3.91 and she is afraid about weight gain and she is asking if we can start Adipex again. Interim History: 05/03 Followup visit on 04/28/19 for followup hyperthyroidism. Thyroid scan and uptake shows 4 hour 15.3%,24 hour 41%, homogeneous uptake without lesion. Ultrasound shows right lobe 3.5 x 1.8 x 1.5, with 3nodules, 6 and 4 and 2 mm, left lobe 3.8 x 1.5 x 1.6 cm, with one nodule 5 mm. TPO 26 (0-34), TRAb 1.58 (0-1.65), mildly distribution superintendent, thyroglobulin antibody less than 1, TSH 0.01, free T4 2.58 ( 0.61-1. 2), free T3 6.41 (2.5-3.9), and she is still not feeling well. HPI: 04/02 New patient sent from [facility], Dr. Teresa office, and for subclinical hyperthyroidism, TSH 0.05, free T4 1.68 (0.8-1.8) back in . Denies any thyroid problem before. No any medication before for thyroid. No family history, and denies a history of steroids, and she was on Cou madin for 5 years, has history of lung cancer, off more than 5 years now. SUBJECTIVE: MEDICATIONS: Current Outpatient Medications Medication Instructions alendronate (FOSAMAX) 70 mg, Oral, Every 7 days, Take in the morning with a full glass of water, yassine empty stomach, and do not take anything else by mouth or lie down for the next 30 min. aspirin 81 MG EC tablet Every 24 hours budesonide-formoterol (Symbicort) 160-4.5 MCG/ACT inhaler 2 puffs, Inhalation, 2 times daily cyproheptadine (Periactin) 4 MG tablet 1 tablet, Nightly Fluticasone Propionate (Xhance) 93 MCG/ACT Exhaler Suspension 1 spray, Nasal, 2 times daily losartan (COZAAR) 50 mg, Daily methIMAzole (Tapazole) 10 MG tablet montelukast (SINGULAIR) 10 mg, Nightly omeprazole (PRILOSEC) 20 mg, Daily RT ALLERGIES: No Known Allergies Past Medical History: Diagnosis Date Abnormal levels of other serum enzymes Abnormal results of liver function studies Asthma (HCC) Disease of thyroid gland Hiatal hernia Hypertension Nontoxic multinodular goiter Sleep apnea Sleep disorder Thyrotoxicosis with diffuse goiter without thyrotoxic crisis or storm Thyrotoxicosis, unspecified without thyrotoxic crisis or storm Tremor Past Surgical History: Procedure Laterality Date ADENOIDECTOMY APPENDECTOMY CHOLECYSTECTOMY CT ANGIOGRAM HEART CORONARY 11/13/2020 CT ANGIOGRAM TAVR 11/13/2020 CT ANGIOGRAM HEART CORONARY 10/30/2020 CT ANGIOGRAM TAVR 10/30/2020 HERNIA REPAIR 2014 HYSTERECTOMY OTHER SURGICAL HISTORY 02/03/2024 r/o kidney stone REVIEW OF SYMPTOMS: 14 POINT OF SYSTEM REVIEWED AND NEGATIVE OBJECTIVE: Visit Vitals BP 132/84 Pulse 66 Resp 16 Ht 5' 5 Wt 186 lb SpO2 94% BMI 30.95 kg/m?? Smoking Status Former BSA 1.97 m?? Physical Exam Constitutional: Appearance: Normal appearance. She is normal weight. HENT: Head: Normocephalic and atraumatic. Right Ear: External ear normal. Nose: Nose normal. Mouth/Throat: Pharynx: Oropharynx is clear. Eyes: Extraocular Movements: Extraocular movements intact. Pupils: Pupils are equal, round, and reactive to light. Cardiovascular: Rate and Rhythm: Normal rate and regular rhythm. Pulmonary: Effort: Pulmonary effort is normal. Abdominal: General: Abdomen is flat. Palpations: Abdomen is soft. Musculoskeletal: General: Normal range of motion. Skin: General: Skin is warm. Neurological: General: No focal deficit present. Mental Status: She is alert. Psychiatric: Mood and Affect: Mood normal. Behavior: Behavior normal. ASSESSMENT AND PLAN: Assessment/Plan Diagnoses and all orders for this visit: Graves' disease - T3, free; Future - T4, free; Future - TSH; Future - Hepatic function panel; Future We will increase her methimazole to 10 mg 4 days a week, we will check lab in 6 months and adjust. Hyperthyroidism Multinodular goiter Follow up in about 6 months (around 09/01/2025). documented in this encounter Plan of Treatment Upcoming Encounters Date Type Department Care Team (Late st Contact Info) Description 08/31/2025 2:50 PM EST Office Visit [facility] [address] [place] [id number] Manju Solo MD [address] [place] [address] Scheduled Orders Name Type Priority Associated Diagnoses Orde r Schedule T3, free Lab Routine Graves' disease Expected: 03/02/2025 (Approximate), Expires: 03/02/2026 T4, free Lab Routine Graves' disease Expected: 03/02/2025 (Approximate), Expires: 03/02/2026 TSH Lab Routine Graves' disease Expected: 03/02/2025 (Approximate), Expires: 03/02/2026 Hepatic function panel Lab Routine Graves' disease Expected: 03/02/2025 (Approximate), Expires: 03/02/2026 documented as of this encounter Visit Diagnoses Diagnosis Graves' disease- Primary 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 crisis or storm Hyperthyroidism Thyrotoxicosis without mention of goiter or other cause, without mention of thyrotoxic crisis or storm Multinodular goiter Nontoxic multinodular goiter documented in this encounter Care Teams Document Control Specialist Relationship Specialty Start Date End Date Gera Teresa MD PCP - General Family Medicine 12/16/23 documented as of this encounter
--- OUTSIDE RECORDS SUMMARY | 2025-03-04 07:29 | XMS_ITS | Encounter Summary ---
Author Organization [facility] tem Address [id number] [address] [place] [address] Care Team Providers Care Business Process Analyst Name Role Phone Liliana Valles APRN-VICE PRESIDENT OF HUMAN RESOURCES Primary Care Provider + Encounter Details Date Type Department Care Team (Late st Contact Info) Description 05/14/2023 Orders Only [facility] Internal Medicine - Family Medicine [address] [place] [address] Liliana Valles APRN-VICE PRESIDENT OF HUMAN RESOURCES [address] [place] [address] Skin cancer screening Social History Tobacco Use Types Packs/Day Years Used Date Smoking Tobacco: Former Smokeless Tobacco: Never Social Connection and Isolat ion Panel [NHANES] Answer Date Recorded In a typical week, how many times do you talk on the phone with family, friends, or neighbors? More than three times a week 10/23/2022 How often do you get togethe r with friends or relatives? Twice a week 10/23/2022 How often do you attend chur ch or moravian services? More than 4 times per year 10/23/2022 Do you belong to any clubs o r organizations such as restorationist groups, unions, fraternal or athletic groups, or school groups? No 10/23/2022 How often do you attend meet ings of the clubs or organizations you belong to? Never 10/23/2022 Are you , , di vorced, , never , or living with a partner? 10/23/2022 AUDIT-C Answer Date Recorded Q1: How often do you have a drink containing alcohol? Never 10/23/2022 Q2: How many drinks containi ng alcohol do you have on a typical day when you are drinking? Patient does not drink Q3: How often do you have si x or more drinks on one occasion? Never 10/23/2022 Overall Financial Resource Strain (CARDIA) Answe r Date Recorded How hard is it for you to pa y for the very basics like food, housing, medical care, and heating? Not very hard 10/23/2022 PHQ-2 Answer Date Recorded Total Score 0 04/28/2023 [facility] [place] Occup[facility] - Occupational Stress Questionnaire Answer Date Recorded Do you feel stress - tense, restless, nervous, or anxious, or unable to sleep at night because your mind is troubled all the time - these days? To some extent 10/23/2022 Exercise Vital Sign Answer Date Recorde d On average, how many days pe r week do you engage in moderate to strenuous exercise (like a brisk walk)? 1 day 10/23/2022 On average, how many minutes do you engage in exercise at this level? 20 min 10/23/2022 PRAPARE - Transportation Answer Date Re corded In the past 12 months, has l ack of transportation kept you from medical appointments or from getting medications? No 04/2023 In the past 12 months, has l ack of transportation kept you from meetings, work, or from getting things needed for daily living? No 10/23/2022 Housing Instability Answer Date Recorde d Are you worried or concerned that in the next two months you may not have stable housing that you own, rent or stay in as a part of a household? No 10/23/2022 Childcare Answer Date Recorded Do problems getting child ca re make 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 work or study? No 10/23/2022 Employment Answer Date Recorded Do you need help finding a l ocal career center and/or a training program? No 10/23/2022 Purpose - Life Answer Date Recorded I have a purpose and direction in my life. Mira gly Agree 10/23/2022 Education Answer Date Recorded What is the highest level of school you have completed or the highest degree you have received? Some college, no degree 10/23/2022 Comments No Sex and Gender Information Value Date Recorded Sex Assigned at Not on file Legal Sex Female 11:36 AM EDT Gender Identity Not on file Sexual Orientation Not on file documented as of this encounter Plan of Treatment Upcoming Encounters Date Type Department Care Team (Late st Contact Info) Description 03/08/2025 12:30 PM EDT Office Visit [facility] Pulmonary/Sleep Medicine [address] [place] [id number] Annetta Trujillo MD [address] [place] [address] 05/12/2025 4:00 PM EDT Office Visit [facility] Internal Medicine - Family Medicine [address] [place] [address] Liliana Valles APRN-CNP [address] [place] [address] documented as of this encounter Procedures Procedure Name Priority Date/Time Associated Diagnosis Comments AMB REFERRAL TO DERMATOLOGY Routine 05/14/2023 1:51 PM EDT Skin cancer screening documented in this encounter Results * Ambulatory referral to Dermatology (05/14/2023 1:51 PM EDT) Liliana Valles APRN-VICE PRESIDENT OF HUMAN RESOURCES OUTPATIENT REFERRAL ORDE JOANN Final Result MANUALLY TRANSCRIBED RESULTS documented in this encounter Visit Diagnoses Diagnosis Skin cancer screening Screening for malignant neoplasm of the skin documented in this encounter Additional Health Concerns Infection Onset Date Last Indicated Resolved Time Respiratory Rule-Out 01/17/2025 01/17/2025 025 11:50 AM EDT Assessment Noted Time PHQ-9 Depression Total Score: 0 04/28/20 23 4:02 PM EDT documented as of this encounter Care Teams Business Process Analyst Relationship Specialty Start Date End Date Liliana Valles APRN-VICE PRESIDENT OF HUMAN RESOURCES [address] [place] [address] PCP - General Family Medicine 01/17/25 documented as of this encounter
--- OUTSIDE RECORDS SUMMARY | 2025-03-04 07:29 | XMS_ITS | Continuity of Care Document ---
Author Organization [facility] Address [address] [place] [address] Phone [phone] Problems Active Problems Provider Date Essential hypertension Onset: Medullary cystic kidney Krzysztof Reddy MD Onset: 12/17/2019 Hypokalemia Krzysztof Reddy MD Onset: 12/17/19 20 Family History Date Family Member(s) Observation Comments Father Leukemia Father due to Leukemia (De ceased) Father Diabetes Mother Diabetes Mother due to Stroke (Dece ased) Mother IBS Social History Type Date Description Comments Sex Female ETOH Use Denies alcohol use Recreational Drug Use Denies Drug Use Tobacco Use Start: Unknown End: Unknown Patient is a former smoker Smoking Status Reviewed: 11/27/23 Patient is a former smoker Results Test Acquired Date Facility Test Result H/L Range Note .Ua 11/18/[address] [address] [phone] Ua Appearance clear Ua Bilirubin - Ua Blood - Ua Color yellow Ua Epithelial Cells QL 0-2 Ua Glucose - Ua Ketones - Ua Leuko - Ua Nitrite - Ua PH Test Strip 7.0 Ua Protein - Ua RBC 0-3 Ua Source clean catch Ua Specific [place] 1.020 Ua Urobilinogen 1.0 Ua WBC 0-5 .Urine Protein/Creat. Random 11/18/[address] [id number] [phone] .Urine Protein Random 23.5 .Urine Creatinine Random 153.0 .Urine Prot/Creat Ratio 15.40 .Renal Panel 11/18/2023 [address] [place] [address] .Albumin 3.9 .Calcium 8.8 .Carbon Dioxide 28 .Chloride 105 .Phosphorus 3.1 .Potassium 4.1 .Sodium 140 .BUN 10 .GFR 102 High 20 .Creatinine-LC 0.6 .Renal Panel 11/19/2022 [facility] 000- 00 .Albumin 3.8 .Calcium 8.8 .Carbon Dioxide 26 .Chloride 102 .Phosphorus 4.2 .Potassium 4.3 .Sodium 136 .BUN 13 .GFR >60 .GFR >60 .Creatinine-LC 0.7 .Ua 11/19/2022 [facility] 000-- 00 Ua Appearance turbid Ua Bilirubin - Ua Blood - Ua Color yellow Ua Epithelial Cells QL 0-2 Ua Glucose - Ua Ketones trace Ua Leuko trace Ua Nitrite - Ua PH Test Strip 5.5 Ua Protein - Ua RBC 0-3 Ua Source clean catch Ua Specific A[place] >=1.030 Ua Urobilinogen 0.2 Ua WBC 0-5 .Urine Protein/Creat. Random 11/19/2022 [facility] (698)- 00 .Urine Protein Random 19.7 .Urine Creatinine Random 237.7 .Urine Prot/Creat Ratio 82.90 .Renal Panel 12/07/[address] [address] .Albumin 3.7 .Calcium 9.5 .Carbon Dioxide 27 .Chloride 103 .Phosphorus 4.2 .Potassium 4.6 .Sodium 139 .BUN 12 .Creatinine-LC 0.6 .GFR >60 High 20 .Renal Panel 12/15/[address] [facility] [address] [place] [address] Albumin 3.6 gm/dL 3.3-5.0 1 Calcium 8.8 mg/dL Low 8.9-11.1 2 Chloride 106 mmol/L 101-111 3 Sodium 139 mmol/L 135-145 4 Potassium 3.4 mmol/L Low 3.5-5.3 5 .Renal Panel 08/31/[address] [address] .Albumin 3.9 .Calcium 9.2 .Carbon Dioxide 27 .Chloride 101 .Creatinine-LC 0.6 .Phosphorus 4.0 .Sodium 137 .BUN 17 .GFR-LC >60 High 20 .Potassium 3.6 .Renal Panel 08/17/[address] [address] .Calcium 9.5 .Carbon Dioxide 26 .Chloride 94 .Creatinine-LC 0.7 .Phosphorus 4.2 .Sodium 132 .BUN 21 .GFR-LC >60 High 20 .Potassium 3.0 .Urine Protein/Creat. Random 02/23/[address] [address] .Urine Protein Random 13.4 .Urine Creatinine Random 186 .Urine Prot/Creat Ratio 72 .Ua 02/23/[address] [address] Ua Appearance Slgh Cloudy Ua Bacteria 1+ High 1+ Mucus Ua Bilirubin Negative Ua Blood Negative Ua Color Yellow Ua Epithelial Cells QL 5-8 Ua Glucose Negative Ua Leuko 2+ Ua Nitrite Negative Ua PH Test Strip 6.0 Ua Protein Negative Ua RBC 0-3 Ua Specific [place] 1.025 Ua Urobilinogen 0.2 Ua WBC 6-15 .Renal Panel 02/23/[address] [address] [phone] .Albumin 4.1 .Calcium 9.1 .Carbon Dioxide 27 .Chloride 99 .Creatinine-LC 0.8 .Phosphorus 4.3 .Sodium 137 .BUN 13 .GFR-LC >60 High 20 .Potassium 3.2 Xray 01/17/[address] [address] [address], Pelvis, W/O Contrast SEE REPORT CT, Abdomen, W/ O Contrast SEE REPORT .urinalysis-di pstick 12/17/2019 [facility] ([id number] 00 Ua Clarity CLEAR Ua Color LIGHT YELLOW Ua Glucose NEG Ua Ketones NEG Ua Specific [place]fton 1.010 Ua Blood NEG Ua PH Test Strip 8.0 Ua Nitrate NEG Ua Leukocytes Manual Count SMALL Ua Protein NEG .CMP 11/15/2019 [facility] ([id number] 00 .Albumin 3.9 .Alt 92 .Calcium 9.2 .Carbon Dioxide 28 .Chloride 100 .Creatinine-LC 0.8 .Glucose Serum 84 .Alkaline Phos 268 .Potassium 3.2 .Protein-Total 7.5 .Sodium 140 .Ast 76 .BUN 16 .GFR >60 High 20 .GFR >60 High 20 .Breana AB Screen-Screen Only-lc 10/11/2019 [facility] (000)- 00 .Braena AB Screen-Screen Only-lc positive .Anca Panel 10/11/2019 [facility] (000)-000- 00 .Anca-C <1:20 .Anca-P <1:20 .Anti Dna DS 10/11/2019 [facility] (000)-000- 00 .Anti Dna DS <1 .Hepatitis Panel (B & C) 10/11/2019 [facility] (000)-000 00 Hepatitis B Surface AB negative .Hepatitis C <0.1 .Ferritin 10/11/2019 [facility] (000)-000- 00 .Ferritin 131 Sjogren's Antibodies 10/11/2019 [facility] (000)-000- 00 .Anti SS-A >8.0 .Anti SS-B <0.2 .Iron 10/11/2019 [facility] (000)000- 00 .Iron [address] [facility] [address] [place] [address] [facility] [address] [place] [address] [facility] [address] [place] [address] [facility] [address] [place] [address] [facility] [address] [place] [address] Encounters Type Date Location Provider Dx Diagnosis Office Visit 11/27/2023 10:40a [facility] Krzysztof Reddy MD I10 Essential (prim garett) hypertension Q61.5 Medullary cystic kid enid E87.6 Hypokalemia Office Visit 11/20/2022 2:30p [facility] Loreto Natarajan I10 Essential (primary) hypertension Q61.5 Medullary cystic kid enid E87.6 Hypokalemia Office Visit 12/14/2021 10:00a [facility] Krzysztof singh MD I10 Essential (primary) hypertension Q61.5 Medullary cystic kid enid E87.6 Hypokalemia Office Visit 12/27/2020 4:00p [facility] Jessica Jay I10 Essential (primary) hypertension Q61.5 Medullary cystic kid enid E87.6 Hypokalemia Office Visit 08/23/2020 2:20p [facility] Jessica Jay I10 Essential (primary) hypertension Q61.5 Medullary cystic kid enid E87.6 Hypokalemia Office Visit 03/02/2020 1:00p [facility] Jessica Jay I10 Essential (primary) hypertension Q61.5 Medullary cystic kid enid E87.6 Hypokalemia Office Visit 12/17/2019 11:20a [facility] Krzysztof Reddy MD I10 Essential (primary) hypertension Q61.5 Medullary cystic kid enid E87.6 Hypokalemia Assessments Date Code Description Provider 11/27/2023 I10 Essential (primary) hypertkeon Reddy MD 11/27/2023 Q61.5 Medullary cystic kidney Stephani Reddy MD 11/27/2023 E87.6 Hypokalemia Jessica Jay 11/20/2022 I10 Essential (primary) hyperten Loreto Flores 11/20/2022 Q61.5 Medullary cystic kidney Yves son, Loreto 11/20/2022 E87.6 Hypokalemia Loreto Natarajan 12/14/2021 I10 Essential (primary) mandy Reddy MD 12/14/2021 Q61.5 Medullary cystic kidney Stephani Reddy MD 12/14/2021 E87.6 Hypokalemia Jessica Jay 12/27/2020 I10 Essential (primary) mandy Reddy MD 12/27/2020 Q61.5 Medullary cystic kidney Stephani Reddy MD 12/27/2020 E87.6 Hypokalemia Jessiac Jay 08/23/2020 I10 Essential (primary) hyperten virginia Reddy MD 08/23/2020 Q61.5 Medullary cystic kidney Stephani Reddy MD 08/23/2020 E87.6 Hypokalemia Jessica Jay 03/02/2020 I10 Essential (primary) kristaen virginia Reddy MD 03/02/2020 Q61.5 Medullary cystic kidney Stephani Reddy MD 03/02/2020 E87.6 Hypokalemia Jessica Jay 12/17/2019 I10 Essential (primary) kristaen virginia Reddy MD 12/17/2019 Q61.5 Medullary cystic kidney Stephani Reddy MD 12/17/2019 E87.6 Hypokalemia Jessica Jay
--- OUTSIDE RECORDS SUMMARY | 2025-03-04 07:29 | XMS_ITS | Encounter Summary ---
Author Organization [facility] Address [id number] [address] [place] [address] Care Team Providers Care Straw Hat Machine Operator Name Role Phone Liliana Valles APRN-PLANT FACILITIES TECHNICIAN Primary Care Provider + Reason for Visit * Reason Comments Med Refill Encounter Details Date Type Department Care Team (Late st Contact Info) Description 12/22/2022 Refill [facility] - Family Medicine [address] [place] [address] Adore Argueta, LEVELER-STRIPPER SOFT PLASTIC [address] [facility] [address] [address] [place] [address] Migraine without aura, not intractable, without status migrainosus Social History Tobacco Use Types Packs/Day Years [...] often do you attend chur ch or worship services? More than 4 times per year 10/23/2022 Do you belong to any clubs o r organizations such as scientology groups, unions, fraternal or athletic groups, or [...] PHQ-2 Answer Date Recorded Total Score 0 10/23/2022 [facility] [place] of Occupat ional Health - Occupational Stress [...] a purpose and direction in my life. Stron gly Agree 10/23/2022 Education Answer Date Recorded What is the highest level of school you have completed or the highest degree you have received? Some college, no degree 10/23/2022 Comments No Sex and Gender Information Value Date Recorded Sex Assigned at Not on file Legal Sex Female 11:36 AM EDT Gender Identity Not on file Sexual Orientation Not on file COVID-19 Exposure Response Date Recorded In the last month, have you been in contact with someone who was confirmed or suspected to have Coronavirus / COVID-19? No / Unsure 12/05/2022 1:30 PM EDT documented as of this encounter Plan of Treatment Upcoming Encounters Date Type Department Care Team (Late st Contact Info) Description 03/08/2025 12:30 PM EDT Office Visit [facility] [address] [place] [phone] Annetta Trujillo MD [address] [facility] [address] [place] [address] 05/12/2025 4:00 PM EDT Office Visit [facility] - [facility] [address] [place] [address] Liliana Valles, LEVELER-PLANT FACILITIES TECHNICIAN [address] [facility] [place] [address] documented as of this encounter Visit Diagnoses Diagnosis Migraine without aura, not intractable, without status migrainosus documented in this encounter Additional Health Concerns Infection Onset Date Last Indicated Resolved Time Respiratory Rule-Out 01/17/2025 01/17/2025 025 11:50 AM EDT Assessment Noted Time PHQ-9 Depression Total Score: 0 10/23/19 9:11 PM EST documented as of this encounter Care Teams Straw Hat Machine Operator Relationship Specialty Start Date End Date Liliana Valles LEVELER-PLANT FACILITIES TECHNICIAN [address] [place] [address] PCP - General Family Medicine 01/17/25 documented as of this encounter
--- OUTSIDE RECORDS SUMMARY | 2025-03-04 07:29 | XMS_ITS | Encounter Summary ---
Author Organization [facility] Address [id number] [address] [place] [address] Care Team Providers Care Senior Clinical Sas Programmer Name Role Phone Liliana Valles Primary Care Provider + Encounter Details Date Type Department Care Team (Late st Contact Info) Description 11/28/2022 Orders Only [facility] - Family [facility] [address] [place] [address] External, Scanning Provider Social History Tobacco Use Types Packs/Day Years [...] week 10/23/2022 How often do you attend [facility] or confucianist services? More than 4 times per year 10/23/2022 Do you belong to any clubs o r organizations such as yazdanism groups, unions, fraternal or athletic groups, or [...] Answer Date Recorded Total Score 0 10/23/2022 [facility] of Occupat ional Health - Occupational Stress [...] have Coronavirus / COVID-19? No / Unsure 11/02/2022 10:46 AM EST documented as of this encounter Plan of Treatment Upcoming Encounters Date Type Department Care Team (Late st Contact Info) Description 03/08/2025 12:30 PM EDT Office Visit [facility] [address] [place] [phone] Annetta Trujillo MD [address] [facility] [address] [place] [address] 05/12/2025 4:00 PM EDT Office Visit [facility] - Family [facility] [address] [place] [phone] Liliana Valles APRN-INVENTORY ASSISTANT [address] [place] [address] documented as of this encounter Procedures Procedure Name Priority Date/Time Associated Diagnosis Comments XR CHEST 1 VW Routine 11/28/2022 documented in this encounter Results * X-ray chest 1 view (11/28/2022) Anatomical Region Laterality Modality Body, Chest N/A Computed Radiogr aphy us Scanning Provider External IMG DIAGNOSTIC IMAGIN G ORDERABLES Final Result documented in this encounter Visit Diagnoses Not on filedocumented in this encounter Additional Health Concerns Infection Onset Date Last Indicated Resolved Time Respiratory Rule-Out 01/17/2025 01/17/2025 025 11:50 AM EDT Assessment Noted Time PHQ-9 Depression Total Score: 0 10/23/19 23 9:11 PM EST documented as of this encounter Care Teams Senior Clinical Sas Programmer Relationship Specialty Start Date End Date Liliana Valles, DRAWER IN STITCH BONDING MACHINE-INVENTORY ASSISTANT [address] [place] [address] PCP - General Family Medicine 01/17/25 documented as of this encounter
--- OUTSIDE RECORDS SUMMARY | 2025-03-04 07:29 | XMS_ITS | Encounter Summary ---
[id number] [address] [place] [address] Care Team Providers Care Senior Premium Auditor Name Role Phone Liliana Valles APRN-ALEKSANDRA Primary Care Provider + Encounter Details Date Type Department Care Team (Late st Contact Info) Description 05/29/2023 Orders Only [facility] - Family [facility] [address] [place] [phone] Robyn Evans CMA Social History Tobacco Use Types Packs/Day Years [...] week 10/23/2022 How often do you attend [facility] or mandaen services? More than 4 times per year [...] Answer Date Recorded Total Score 0 04/28/2023 [facility] [place] of Occupat ional Health - Occupational Stress [...] purpose and direction in my life. Mira abbasi Agree 10/23/2022 Education Answer Date Recorded What [...] Visit [facility] [address] [place] [address] Annetta Trujillo MD [address] [facility] [address] [place] [address] 05/12/2025 4:00 PM EDT Office Visit [facility] - Family Medicine [address] [place] [address] Liliana Valles, BUTCHER APPRENTICE-SHRIMP PEELING MACHINE OPERATOR [address] [place] [address] documented as of this encounter Visit Diagnoses Not on filedocumented in this encounter Additional Health Concerns Infection Onset Date Last Indicated Resolved Time Respiratory Rule-Out 01/17/2025 01/17/2025 025 11:50 AM EDT Assessment Noted Time PHQ-9 Depression Total Score: 0 04/28/20 23 4:02 PM EDT documented as of this encounter Care Teams Senior Premium Auditor Relationship Specialty Start Date End Date Liliana Valles, BUTCHER APPRENTICE-SHRIMP PEELING MACHINE OPERATOR [address] [place] [address] PCP - General Family Medicine 01/17/25 documented as of this encounter
--- OUTSIDE RECORDS SUMMARY | 2025-03-04 07:29 | XMS_ITS | Encounter Summary ---
Author Organization [facility] [employer] [facility] Address [id number] [address] [place] [address] Care Team Providers Care Hand Nailer Name Role Phone Liliana Valles APRN-ALEKSANDRA Primary Care Provider + Encounter Details Date Type Department Care Team (Late st Contact Info) Description 12/20/2022 Orders Only [facility] - Family Medicine [address] [place] [phone] Renetta Obregon CMA Hyperthyroidism Social History Tobacco Use Types Packs/Day Years [...] 10/23/2022 How often do you attend chur or yazidism services? More than 4 times per year 10/23/2022 Do you belong to any clubs o r organizations such as latter day groups, unions, fraternal or athletic groups, or [...] Answer Date Recorded Total Score 0 10/23/2022 [facility] [place] of Occupat ional Health - Occupational Stress [...] Office Visit [facility] [address] [place] [phone] Annetta Trujillo MD [address] [facility] [address] [place] [address] 05/12/2025 4:00 PM EDT Office Visit [facility] - Family Medicine [address] [place] [phone] Liliana Valles APRN-PHARMACY OPERATIONS COORDINATOR [address] [facility] [place] [address] documented as of this encounter Procedures Procedure Name Priority Date/Time Associated Diagnosis Comments TSH Routine 12/17/2022 Hyperthyroidism T4, FREE Routine 12/17/2022 Hyperthyroidism documented in this encounter Results * T4, free (12/17/2022) External T4 Free 10.10 4.80 - 13.90 MANUALLY TRANSCRIBED RESULTS 12/17/2022 Liliana Valles SANITARY ENGINEERING TEACHER-PHARMACY OPERATIONS COORDINATOR LAB BLOOD ORDERABLES Fin al Result MANUALLY TRANSCRIBED RESULTS * TSH (12/17/2022) External Tsh 1.776 0.358 - 3.740 MANUALLY TRANSCRIBED RESULTS 12/17/2022 Liliana SAMSON LAB BLOOD ORDERABLES Fin al Result MANUALLY TRANSCRIBED RESULTS documented in this encounter Visit Diagnoses Diagnosis Hyperthyroidism Thyrotoxicosis without mention of goiter or other cause, without mention of thyrotoxic crisis or storm documented in this encounter Additional Health Concerns Infection Onset Date Last Indicated Resolved Time Respiratory Rule-Out 01/17/2025 01/17/2025 025 11:50 AM EDT Assessment Noted Time PHQ-9 Depression Total Score: 0 10/23/19 23 9:11 PM EST documented as of this encounter Care Teams Hand Nailer Relationship Specialty Start Date End Date Liliana Valles, ARELI-ALEKSANDRA [address] [facility] [place] [address] PCP - General Family Medicine 01/17/25 documented as of this encounter
--- OUTSIDE RECORDS SUMMARY | 2025-03-04 07:29 | XMS_ITS | Encounter Summary ---
Author Organization [facility] Address [id number] [address] [place] [address] Care Team Providers Care Carpenter Assistant Installer Name Role Phone Liliana Valles Primary Care Provider + Encounter Details Date Type Department Care Team (Late st Contact Info) Description 07/17/2024 Telephone [facility] [address] [address] [place] Social History Tobacco Use Types Packs/Day Years Used Date Smoking Tobacco: Former Smokeless Tobacco: Never Alcohol Use Standard Drinks/Week Comments Not Currently 0 (1 standard drink = 0.6 oz pur e alcohol) Social Connection and Isolat ion Panel [NHANES] Answer Date Recorded In a typical week, how many times do you talk on the phone with family, friends, or neighbors? More than three times a week 10/23/2022 How often do you get togethe r with friends or relatives? Twice a week 10/23/2022 How often do you attend chur or jain services? More than 4 times per year 10/23/2022 Do you belong to any clubs o r organizations such as christian groups, unions, fraternal or athletic groups, or [...] food, housing, medical care, and heating? Not hard at all 01/25/2024 PHQ-2 Answer Date Recorded Total Score 0 06/24/2024 [facility] of Occupat ional Health - Occupational Stress [...] medical appointments or from getting medications? No 01/13 In the past 12 months, has l ack of transportation kept you from meetings, work, or from getting things needed for daily living? No 01/25/2024 Housing Instability Answer Date Recorde d Are you worried or concerned that in the next two months you may not have stable housing that you own, rent or stay in as a part of a household? No 01/25/2024 Childcare Answer Date Recorded Do problems getting child ca re make 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 work or study? No 10/23/2022 Employment Answer Date Recorded Do you need help finding a [facility] [employer] [facility] and/or a training program? No 10/23/2022 Hunger Screening Answer Date Recorded Within the past 12 months we worried whether our food would run out before we got money to buy more. Never True 06/24/2024 Within the past 12 months th e food we bought just didn't last and we didn't have money to get more. Never True 06/24/2024 Purpose - Life Answer Date Recorded I [...] on file documented as of this encounter Miscellaneous Notes * Telephone Encounter - Geneva Wicho - 07/17/2024 10:[address] Trujillo's 07/08/24 note in Sleep Lab encounter: Ok for HST Prior dx LILO PPG read/follow documented in this encounter Plan of Treatment Upcoming Encounters Date Type Department Care Team (Late st Contact Info) Description 03/08/2025 12:30 PM EDT Office Visit [facility] [address] [address] Annetta Trujillo MD [address] [facility] [address] [place] [address] 05/12/2025 4:00 PM EDT Office Visit [facility] - Family Medicine [address] [place] [address] Liliana Valles APRN-CHARCOAL KILN BURNER [address] [place] [address] documented as of this encounter Visit Diagnoses Not on filedocumented in this encounter Additional Health Concerns Infection Onset Date Last Indicated Resolved Time Respiratory Rule-Out 01/17/2025 01/17/2025 025 11:50 AM EDT Assessment Noted Time PHQ-9 Depression Total Score: 0 06/24/20 24 1:44 PM EDT documented as of this encounter Care Teams Carpenter Assistant Installer Relationship Specialty Start Date End Date Liliana Valles BOTTLE CARRIER-CHARCOAL KILN BURNER [address] [place] [address] PCP - General Family Medicine 01/17/25 documented as of this encounter
--- OUTSIDE RECORDS SUMMARY | 2025-03-04 07:29 | XMS_ITS | Encounter Summary ---
Author Organization [facility] Sys tem Address [facility] [place]-[id number] [address] [place] [address] Care Team Providers Care Pediatric Dentist Name Role Phone Liliana Valles APRN-ALEKSANDRA Primary Care Provider + Reason for Visit * Reason Comments Med Refill Encounter Details Date Type Department Care Team (Late st Contact Info) Description 05/29/2024 Refill [facility] - Family Medicine [address] [place] [address] Liliana Valles, [facility] [address] [place] [address] Social History Tobacco Use Types Packs/Day Years [...] often do you attend chur ch or confucianism services? More than 4 times per year 10/23/2022 Do you belong to any clubs o r organizations such as episcopal groups, unions, fraternal or athletic groups, or [...] PHQ-2 Answer Date Recorded Total Score 0 04/01/2024 [facility] of Occupat ional Health - Occupational Stress [...] Recorded Do you need help finding a [facility] career center and/or a training program? No 10/23/2022 Hunger Screening Answer Date Recorded Within the past 12 months we worried whether our food would run out before we got money to buy more. Never True 04/01/2024 Within the past 12 months th e food we bought just didn't last and we didn't have money to get more. Never True 04/01/2024 Purpose - Life Answer Date Recorded I [...] Visit [facility] [address] [facility], [place] [address] Annetta Trujillo MD [address] [facility] [address] [place] [address] 05/12/2025 4:00 PM EDT Office Visit [facility] - Family Medicine [address] [place] [address] Liliana Valles, CONCESSION SUPERVISOR-BROACH SETTER [address] [place] [address] documented as of this encounter Visit Diagnoses Not on filedocumented in this encounter Additional Health Concerns Infection Onset Date Last Indicated Resolved Time Respiratory Rule-Out 01/17/2025 01/17/2025 025 11:50 AM EDT Assessment Noted Time PHQ-9 Depression Total Score: 0 04/01/20 24 11:41 AM EDT documented as of this encounter Care Teams Pediatric Dentist Relationship Specialty Start Date End Date Liliana Valles, CONCESSION SUPERVISOR-BROACH SETTER [address] [place] [address] PCP - General Family Medicine 01/17/25 documented as of this encounter
--- OUTSIDE RECORDS SUMMARY | 2025-03-04 07:29 | XMS_ITS | Encounter Summary ---
Author Organization [employer] s tem Address [facility] [place]-[id number] [address] [place] [address] Care Team Providers Care Bass Fisher Name Role Phone Hai, Liliana SAMSON Primary Care Provider + Reason for Visit * Reason Onset Date Comments Med Refill 07/08/2022 Encounter Details Date Type Department Care Team (Late st Contact Info) Description 07/08/2022 Refill [facility] - Family Medicine [address] [place] [address] TylerdamonAmparo vázquez [place] Social History Tobacco Use Types Packs/Day Years Used Date Smoking Tobacco: Former Smokeless Tobacco: Never Childcare Answer Date Recorded Childcare Unknown 02/24/2019 Employment Answer Date Recorded Employment Unknown 02/24/2019 Purpose - Life Answer Date Recorded Purpose and direction in life Unknown Comments No Sex and Gender Information Value [...] [facility] [address] [place] [address] Annetta Trujillo MD [address] [facility] [address] [place] [address] 05/12/2025 4:00 PM EDT Office Visit [facility] - Family Medicine [address] [place] [address] Liliana Valles APRN-CNP [address] [place] [address] documented as of this encounter Visit Diagnoses Not on filedocumented in this encounter Additional Health Concerns Infection Onset Date Last Indicated Resolved Time Respiratory Rule-Out 01/17/2025 01/17/2025 025 11:50 AM EDT documented as of this encounter Care Teams Bass Fisher Relationship Specialty Start Date End Date Liliana Valles APRN-CNP [address] [place] [address] PCP - General Family Medicine 01/17/25 documented as of this encounter
--- OUTSIDE RECORDS SUMMARY | 2025-03-04 07:29 | XMS_ITS | Encounter Summary ---
Author Organization [facility] tem Address [facility] [id number] [address] [place] [address] Care Team Providers Care Endless Bed Drum Sander Name Role Phone Liliana Valles APRN-ALEKSANDRA Primary Care Provider + Encounter Details Date Type Department Care Team (Late st Contact Info) Description 08/01/2024 Orders Only [facility] - Family Medicine [address] [place] [address] Charan Plata, [address] [place] [address] History of colon polyps (Primary Dx) Social History Tobacco Use Types Packs/Day Years [...] often do you attend chur ch or samaritan services? More than 4 times per year 10/23/2022 Do you belong to any clubs o r organizations such as advent groups, unions, fraternal or athletic groups, or [...] Answer Date Recorded Total Score 0 06/24/2024 [facility] - Occupational Stress Questionnaire Answer Date Recorded [...] Recorded Do you need help finding a [facility] and/or a training program? No [...] Office Visit [facility] [address] [facility] [place] [address] Annetta Trujillo MD [address] [facility] [address] [place] [address] 05/12/2025 4:00 PM EDT Office Visit [facility] - Family Medicine [address] [place] [address] Liliana Valles, HOSPITAL CLEANING SPECIALIST-IAP DISPLAYS ANALYST [address] [place] [address] documented as of this encounter Visit Diagnoses Diagnosis History of colon polyps- Primary documented in this encounter Additional Health Concerns Infection Onset Date Last Indicated Resolved Time Respiratory Rule-Out 01/17/2025 01/17/2025 025 11:50 AM EDT Assessment Noted Time PHQ-9 Depression Total Score: 0 06/24/20 24 1:44 PM EDT documented as of this encounter Care Teams Endless Bed Drum Sander Relationship Specialty Start Date End Date Liliana Valles, HOSPITAL CLEANING SPECIALIST-IAP DISPLAYS ANALYST [address] [place] [address] PCP - General Family Medicine 01/17/25 documented as of this encounter
--- OUTSIDE RECORDS SUMMARY | 2025-03-04 07:29 | XMS_ITS | Encounter Summary ---
[facility] Organization [facility] Address [facility] [place][id number] [address] [place] [address] Care Team Providers Care Hazardous Materials Handler Name Role Phone Liliana Valles APRN-ALEKSANDRA Primary Care Provider + Encounter Details Date Type Department Care Team (Late st Contact Info) Description 08/09/[address] [facility] [address] [place] [address] Yudelka Crump CMA Social History Tobacco Use Types Packs/Day [...] often do you attend chur ch or taoist services? More than 4 times per year 10/23/2022 Do you belong to any clubs o r organizations such as gnosticist groups, unions, fraternal or athletic groups, or [...] Answer Date Recorded Total Score 0 06/24/2024 [facility] of Occupat ional Health - Occupational Stress [...] Recorded Do you need help finding a [facility] career [facility] and/or a training program? [...] Office Visit [facility] [address] [facility] [place] [address] Annetta Trujillo MD [address] [facility] [address] [place] [address] 05/12/2025 4:00 PM EDT Office Visit [facility] - Family Medicine [address] [place] [address] Liliana Valles, TAXI SERVICER-BREAST SPLITTER [address] [facility] [place] [address] documented as of this encounter Visit Diagnoses Not on filedocumented in this encounter Additional Health Concerns Infection Onset Date Last Indicated Resolved Time Respiratory Rule-Out 01/17/2025 01/17/2025 025 11:50 AM EDT Assessment Noted Time PHQ-9 Depression Total Score: 0 06/24/20 24 1:44 PM EDT documented as of this encounter Care Teams Hazardous Materials Handler Relationship Specialty Start Date End Date Liliana Valles, TAXI SERVICER-BREAST SPLITTER [address] [place] [address] PCP - General Family Medicine 01/17/25 documented as of this encounter
--- OUTSIDE RECORDS SUMMARY | 2025-03-04 07:29 | XMS_ITS | Encounter Summary ---
Author Organization [employer] [facility] tem Address [facility] [place]-[id number] [address] [place] [address] Care Team Providers Care Roughing Mill Operator Name Role Phone Liliana Valles [facility] Primary Care Provider + Reason for Visit * Reason Comments Med Refill Encounter Details Date Type Department Care Team (Late Contact Info) Description 06/17/2022 Refill [facility] - Family Medicine [address] [place] [address] Adoer Argueta, WEEDER-DUMPMAN [address] [facility] [facility] [address] [place], [place] [id number] Migraine without aura, not intractable, without status [...] Encounters Date Type Department Care Team (Late Contact Info) Description 03/08/2025 12:30 PM EDT Office Visit [facility] [address] [facility] [place] [address] Annetta Trujillo MD [address] [facility] [address] [place] [address] 05/12/2025 4:00 PM EDT Office Visit [facility] - Family Medicine [address] [place] [address] Liliana Valles, WEEDER-ACUTE CARE NURSE [address] [place] [address] documented as of this encounter Visit Diagnoses Diagnosis Migraine without aura, not intractable, without status migrainosus documented in this encounter Additional Health Concerns Infection Onset Date Last Indicated Resolved Time Respiratory Rule-Out 01/17/2025 01/17/2025 025 11:50 AM EDT documented as of this encounter Care Teams Roughing Mill Operator Relationship Specialty Start Date End Date Liliana Valles, WEEDER-ACUTE CARE NURSE [address] [place] [address] PCP - General Family Medicine 01/17/25 documented as of this encounter
--- OUTSIDE RECORDS SUMMARY | 2025-03-04 07:29 | XMS_ITS | Encounter Summary ---
Author Organization [employer] Sys tem Address [facility] [place][id number] [address] [place] [address] Care Team Providers Care Solar Photovoltaic Crew Lead Name Role Phone Liliana Valles Primary Care Provider + Reason for Visit * Reason Onset Date Comments Med Refill 06/07/2024 Encounter Details Date Type Department Care Team (Late st Contact Info) Description 06/07/2024 Refill [facility] - Family Medicine [address] [place] [address] Joaquin, Fatoumata, WAREHOUSE PICKER Migraine without aura, not intractable, without status [...] often do you attend chur ch or sikhism services? More than 4 times per year 10/23/2022 Do you belong to any clubs o r organizations such as christianity groups, unions, fraternal or athletic groups, or [...] Answer Date Recorded Total Score 0 04/01/2024 [facility] of Occupat ional Health - Occupational Stress [...] Do you need help finding a l al career center and/or a training program? No [...] Visit [facility] [address] [place] [address] Annetta Trujillo MD [address] [facility] [address] [place] [address] 05/12/2025 4:00 PM EDT Office Visit [facility] - Family Medicine [address] [place] [address] Liliana Valles ANESTHESIA ATTENDING-AUTOMOBILE SERVICE WRITER [address] [place] [address] documented as of this encounter Visit Diagnoses Diagnosis Migraine without aura, not intractable, without status migrainosus documented in this encounter Additional Health Concerns Infection Onset Date Last Indicated Resolved Time Respiratory Rule-Out 01/17/2025 01/17/2025 025 11:50 AM EDT Assessment Noted Time PHQ-9 Depression Total Score: 0 04/01/20 24 11:41 AM EDT documented as of this encounter Care Teams Solar Photovoltaic Crew Lead Relationship Specialty Start Date End Date Liliana Valles, ANESTHESIA ATTENDING-AUTOMOBILE SERVICE WRITER [address] [place] [address] PCP - General Family Medicine 01/17/25 documented as of this encounter
--- OUTSIDE RECORDS SUMMARY | 2025-03-04 07:30 | XMS_ITS | Clinical Summary ---
Author Organization [facility] Healthcare Address [address] [place] [address] Care Team Providers Care Acid Treater Name Role Phone Gera Teresa MD Primary Care Provider [phone] Allergies No known active allergies Medications aspirin 81 MG EC tablet 1 (one) time each day at the same time Active cyproheptadine (Periactin) 4 MG tablet Take 1 tablet by mouth at bedtime Active losartan (Cozaar) 50 MG tablet Take 50 mg by mouth Daily Active methIMAzole (Tapazole) 10 MG tablet Active montelukast (Singulair) 10 MG tablet Take 10 mg by mouth at bedtime Active alendronate (Fosamax) 70 MG tablet Take 70 mg by mouth every 7 (seven) days Take in the morning with a full glass of water, on an empty stomach, and do not take anything else by mouth or lie down for the next 30 min. Active budesonide-formot alvin (Symbicort) 160-4.5 MCG/ACT inhalerIndication s:Asthma, allergic, mild intermittent, uncomplicated (HCC) Inhale 2 puffs in the morning and 2 puffs before bedtime. 1 each 4 Active Fluticasone Propionate (Xhance) 93 MCG/ACT Exhaler SuspensionIndicat ions:Recurrent sinus infections Administer 1 spray into affected nostril(s) in the morning and 1 spray before bedtime. 16 mL 11 4 Active omeprazole (PriLOSEC) [address] capsule Take 20 mg by mouth in the morning. 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 Essential hypertension 11/26/2019 Encounters Date Type Department Care Team Description 03/02/2025 9:00 AM EDT Office Visit [facility] [address] [place] [address] Manju Solo MD Graves' disease (Primary Dx); Hyperthyroidism ; Multinodular goiter 03/02/2025 Bamboo flowsheet [facility] [address] [place] [address] Manju Solo MD 02/25/2025 Travel 02/22/2025 Orders Only [facility] [address] [place] [address] Manju Solo MD from Last 3 Months Family History Medical History Relation Name Comments No Known Problems Brother Cancer Father Carlin Ruperto Diabetes Father Carlin Ruperto Leukemia Father Carlin Ruperto Diabetes Mother Lula Rodriguez Stroke Mother Lula Rodriguez No Known Problems Sister Relation Name Status Comments Brother Alive Daughter Alive Father Carlin Hickey Mother Lula Rodriguez Sister Alive Son 1 Alive Son 2 Social History Tobacco Use Types Packs/Day Years Used Date Smoking Tobacco: Former Smokeless Tobacco: Never Tobacco Cessation:Counseling Given: Not Answered Alcohol Use Standard Drinks/Week Comments Yes 0 (1 standard drink = 0.6 oz pur e alcohol) Socially Comments Unknown Sex and Gender Information Value Date Recorded Sex Assigned at Female 01/05/2024 9:30 PM EDT Legal Sex Female 11:38 PM EDT Gender Identity Female 01/05/2024 9:30 PM EDT Sexual Orientation Not on file Last Filed Vital Signs Vital Sign Reading [...] Mass Index 30.95 03/02/2025 8:59 AM EDT Plan of Treatment Upcoming Encounters Date Type Department Care Team (Late st Contact Info) Description 08/31/2025 2:50 PM EST Office Visit [facility] [address] [place] [address] Manju Solo MD [address] [place] [address] Health Maintenance Due Date Last Done Comments CT Colonography 1962 FIT-DNA 1962 FIT 1962 FOBT 1962 Sigmoidoscopy 1962 Pap Smear 1983 Cervical Cancer Screening 1992 HPV/Cotest 1992 Mammogram 12/02/2025 12/02/2024, 10/17, 11/05/2023, Additional history exists Colonoscopy 10/20/2034 10/20/2024, 10/20/2024 Colorectal Cancer Screening 10/20/2034 Influenza Vaccine Completed 06/24/2024, , 06/27/2022, Additional history exists Procedures Procedure Name Priority Date/Time Associated Diagnosis Comments TSH Routine 02/22/2025 8:10 AM EDT T3, FREE Routine 02/22/2025 8:10 AM EDT T4, FREE Routine 02/22/2025 8:10 AM EDT from Last 3 Months Results * T3, free (02/22/2025 8:10 AM EDT) Blood Venous blood specimen / Unknown Manju Solo MD LAB BLOOD ORDERABLES Final Re sult * TSH (02/22/2025 8:10 AM EDT) Blood Venous blood specimen / Unknown Manju Solo MD LAB BLOOD ORDERABLES Final Re sult * T4, free (02/22/2025 8:10 AM EDT) Blood Venous blood specimen / Unknown Result [facility] Manju Solo MD LAB BLOOD ORDERABLES Final Re sult from Last 3 Months Insurance FRONTPATH Care Teams Acid Treater Relationship Specialty Start Date End Date Gera Teresa MD PCP - General Family Medicine 12/16/23
--- OUTSIDE RECORDS SUMMARY | 2025-03-04 07:30 | XMS_ITS | Encounter Summary ---
Author Organization [facility] Address [address] [place] [address] Care Team Providers Care Race Steward Name Role Phone Gera Teresa MD Primary Care Provider [phone] Encounter Details Date Type Department Care Team (Latest Contact Info) Description 02/25/2025 Travel Social History Tobacco Use Types Packs/Day Years [...] PM EST Office Visit [facility] [address] [place] [address] Manju Solo MD [address] [place] [address] documented as of this encounter Visit Diagnoses Not on filedocumented in this encounter Care Teams Race Steward Relationship Specialty Start Date End Date Gera Teresa MD PCP - General Family Medicine 12/16/23 documented as of this encounter
--- OUTSIDE RECORDS SUMMARY | 2025-03-04 07:30 | XMS_ITS | Encounter Summary ---
Author Organization [facility] Sys tem Address [facility] [place]-[id number] [address] [place] [address] Care Team Providers Care Propulsion Engineer Name Role Phone Liliana Valles Primary Care Provider + Encounter Details Date Type Department Care Team (Late st Contact Info) Description 03/09/2024 Orders Only [facility] - Family Medicine [address] [place] [address] External, Scanning Provider Social History Tobacco Use [...] How often do you attend chur or baptism services? More than 4 times per year 10/23/2022 Do you belong to any clubs o r organizations such as hinduism groups, unions, fraternal or athletic groups, or [...] PHQ-2 Answer Date Recorded Total Score 0 03/05/2024 [facility] of Occupat ional Health - [...] Recorded Do you need help finding a [facility] and/or a training program? No 10/23/2022 Hunger Screening Answer Date Recorded Within the past 12 months we worried whether our food would run out before we got money to buy more. Never True 03/05/2024 Within the past 12 months th e food we bought just didn't last and we didn't have money to get more. Never True 03/05/2024 Purpose - Life Answer Date Recorded I [...] Office Visit [facility] [address] [facility] [place] [address] Annetta Trujillo MD [address] [facility] [address] [place] [address] 05/12/2025 4:00 PM EDT Office Visit [facility] - Family Medicine [address] [place] [address] Liliana Valles SHIRT CLOSER-SLATE SPLITTING SUPERVISOR [address] [place] [address] documented as of this encounter Procedures Procedure Name Priority Date/Time Associated Diagnosis Comments XR ABDOMEN AP 1 VW Routine 03/05/2024 10:53 AM EDT documented in this encounter Results * X-ray abdomen ap 1 view (03/05/2024 10:53 AM EDT) Anatomical Region Laterality Modality Body, Abdomen N/A Computed Radiogr aphy us Scanning Provider External IMG DIAGNOSTIC IMAGIN G ORDERABLES Final Result documented in this encounter Visit Diagnoses Not on filedocumented in this encounter Additional Health Concerns Infection Onset Date Last Indicated Resolved Time Respiratory Rule-Out 01/17/2025 01/17/2025 025 11:50 AM EDT Assessment Noted Time PHQ-9 Depression Total Score: 0 03/05/20 24 8:39 AM EDT documented as of this encounter Care Teams Propulsion Engineer Relationship Specialty Start Date End Date Liliana Valles, SHIRT CLOSER-SLATE SPLITTING SUPERVISOR [address] [place] [address] PCP - General Family Medicine 01/17/25 documented as of this encounter
--- OUTSIDE RECORDS SUMMARY | 2025-03-04 07:30 | XMS_ITS | Encounter Summary ---
Author Organization [facility] Sys tem Address [facility] [id number] [address] [place] [address] Care Team Providers Care Plastic Die Maker Apprentice Name Role Phone Liliana Valles Primary Care Provider + Encounter Details Date Type Department Care Team (Late st Contact Info) Description 02/13/2024 Orders Only [facility] - Family Medicine [address] [place] [address] External, Scanning Provider Social History Tobacco Use [...] week 10/23/2022 How often do you attend [facility] or anabaptist services? More than 4 times per year 10/23/2022 Do you belong to any clubs o r organizations such as zoroastrianism groups, unions, fraternal or athletic groups, or [...] you are drinking? Patient does not drink 3 Q3: How often do you have si x or more drinks on one occasion? Never 10/23/2022 Overall Financial Resource Strain (CARDIA) Answe r Date Recorded How hard is it for you to pa y for the very basics like food, housing, medical care, and heating? Not hard at all 01/25/2024 PHQ-2 Answer Date Recorded Total Score 0 07/24/2023 [facility] of Occupat ional [facility] - Occupational Stress Questionnaire Answer Date Recorded [...] got money to buy more. Never True 01/25/2024 Within the past 12 months th e food we bought just didn't last and we didn't have money to get more. Never True 01/25/2024 Purpose - Life Answer Date Recorded I [...] Visit [facility] [address] [facility] [facility] [place] [address] Annetta Trujillo MD [address] [facility] [address] [place] [address] 05/12/2025 4:00 PM EDT Office Visit [facility] - Family Medicine [address] [place] [address] Liliana Valles, OIL DISPATCHER-LINE OPERATOR [address] [place] [address] documented as of this encounter Visit Diagnoses Not on filedocumented in this encounter Additional Health Concerns Infection Onset Date Last Indicated Resolved Time Respiratory Rule-Out 01/17/2025 01/17/2025 025 11:50 AM EDT Assessment Noted Time PHQ-9 Depression Total Score: 0 07/24/20 23 10:25 AM EST documented as of this encounter Care Teams Plastic Die Maker Apprentice Relationship Specialty Start Date End Date Liliana Valles, OIL DISPATCHER-LINE OPERATOR [address] [place] [address] PCP - General Family Medicine 01/17/25 documented as of this encounter
--- OUTSIDE RECORDS SUMMARY | 2025-03-04 07:30 | XMS_ITS | Encounter Summary ---
Author Organization [facility] Sys tem Address [id number] [address] [place] [address] Care Team Providers Care Grocery Supervisor Name Role Phone Liliana Valles APRN-ALEKSANDRA Primary Care Provider + Encounter Details Date Type Department Care Team (Late st Contact Info) Description 12/20/2024 Orders Only [facility] Internal Medicine - Family Medicine [address] [place] [address] Ref Prov, [place] [address] Social History Tobacco Use Types Packs/Day Years Used Date Smoking Tobacco: Former Cigarettes 0.2 18 1 987 - 2005 Smokeless Tobacco: Never Alcohol Use Standard Drinks/Week [...] often do you attend chur ch or baptism services? More than 4 times per year 10/23/2022 Do you belong to any clubs o r organizations such as yarsanism groups, unions, fraternal or athletic groups, or [...] Answer Date Recorded Total Score 0 06/24/2024 [facility] [place] of Occupat ional Health - Occupational Stress [...] Recorded Do you need help finding a [facility] and/or a training program? [...] Pulmonary/Sleep Medicine [address] [place] [id number] Annetta Trujillo MD [address] [place] [address] 05/12/2025 4:00 PM EDT Office Visit [facility] Internal Medicine - Family Medicine [address] [place] [address] Liliana Valles, GENERAL MAINTENANCE TECHNICIAN-PLUMBER AND TINNER [address] [place] [address] documented as of this encounter Procedures Procedure Name Priority Date/Time Associated Diagnosis Comments XR CHEST 1 VW Routine 12/13/2024 1:41 PM EDT documented in this encounter Results * X-ray chest 1 view (12/13/2024 1:41 PM EDT) Anatomical Region Laterality Modality Body, Chest N/A Computed Radiogr aphy us Not In System Ref Prov IMG DIAGNOSTIC IMAGING OR DERABLES Final Result documented in this encounter Visit Diagnoses Not on filedocumented in this encounter Additional Health Concerns Infection Onset Date Last Indicated Resolved Time Respiratory Rule-Out 01/17/2025 01/17/2025 025 11:50 AM EDT Assessment Noted Time PHQ-9 Depression Total Score: 0 06/24/20 24 1:44 PM EDT documented as of this encounter Care Teams Grocery Supervisor Relationship Specialty Start Date End Date Liliana Valles, GENERAL MAINTENANCE TECHNICIAN-PLUMBER AND TINNER [address] [place] [address] PCP - General Family Medicine 01/17/25 documented as of this encounter
--- OUTSIDE RECORDS SUMMARY | 2025-03-04 07:30 | XMS_ITS | Encounter Summary ---
Author Organization [facility] Address [address] [place] [address] Care Team Providers Care Manager Clinical Research Name Role Phone Gera Teresa MD Primary Care Provider [phone] Encounter Details Date Type Department Care Team (Late st Contact Info) Description 02/10/2024 Clinisync Result Encounter [facility] External Department Unsolicited Richa Gregory MD [address] [place] [address] Social History Tobacco Use Types Packs/Day Years Used Date Smoking Tobacco: Never Smokeless Tobacco: Never Alcohol Use Standard Drinks/Week [...] EST Office Visit [facility] [address] [place] [address] Manju Solo MD [address] [place] [address] documented as of this encounter Procedures Procedure Name Priority Date/Time Associated Diagnosis Comments CT MAXILLOFACIAL W/O CONTRAST 02/10/2024 9:36 AM EDT documented in this encounter Results * CT MAXILLOFACIAL W/O CONTRAST (02/10/2024 9:36 AM EDT) Anatomical Region Laterality Modality Other 02/10/2024 9:36 AM EDT Narrative 02/12/2024 1:44 PM EDT Exam Date/Time: 02/10/2024 09:43 EDT Reason for Exam: J32.4 Chronic pansinusitis Report IMPRESSION: PARANASAL SINUS DISEASE DETAILED. Exam: CT Maxillofacial w/o Contrast History: Chronic pansinusitis Technique: Multiple contiguous axial images were obtained of the maxillofacial bones without contrast. Multiplanar reformats were obtained. Comparison: None available Findings: Maxillary Sinuses: Significant mucosal thickening of the left maxillary sinus with near-complete opacification. Mild to moderate mucosal thickening of the right maxillary sinus. Ethmoid sinuses: Near complete opacification. Sphenoid sinuses: Mild mucosal thickening. There is sphenoid pneumatization that extends inferior and posterior to the sella, resulting in a thin posterior bony margin of the clivus, consistent with sellar type pneumatization. Frontal sinuses: Near complete opacification of the right frontal sinus. Mild mucosal thickening of the left frontal sinus. Right sphenoethmoidal recess: Partially opacified Left sphenoethmoidal recess: Completely opacified Right ostiomeatal complex and frontal recess: Opacified Left ostiomeatal complex and frontal recess: Opacified Nasal septum: Rightward deviation with spurring Other: Keros type 2 olfactory fossa. No Onodi or Dominga cells. Mastoid air cells & middle ears: Clear. The middle ears are unremarkable. Soft tissues & Brain: No acute abnormality identified. Orbital contents are within normal limits. Report All CT scans at this facility use dose modulation, iterative reconstruction, and/or weight based dosing when appropriate to reduce radiation dose to as low as reasonably achievable. Ordering Provider: Richa Gregory FINAL REPORT Dictated: 02/12/2024 1:41 pm Viktor Crabtree DO Signed (Electronic Signature): 02/12/2024 1:41 pm Signed by: Viktor Crabtree DO Transcribed by: SOLIS Technologist: CHANA Procedure Note Radiology, Radiologist, - 02/12/2024 Exam Date/Time: 02/10/2024 09:43 EDT Reason for Exam: J32.4 Chronic pansinusitis Report IMPRESSION: PARANASAL SINUS DISEASE DETAILED. Exam: CT Maxillofacial w/o Contrast History: Chronic pansinusitis Technique: Multiple contiguous axial images were obtained of themaxillofacial bones without contrast. Multiplanar reformats were obtained. Comparison: None available Findings: Maxillary Sinuses: Significant mucosal thickening of the left maxillarysinus with near-complete opacification. Mild to moderate mucosal thickening of theright maxillary sinus. Ethmoid sinuses: Near complete opacification. Sphenoid sinuses: Mild mucosal thickening. There is sphenoidpneumatization that extends inferior and posterior to the sella, resulting in a thin posteriorbony margin of the clivus, consistent with sellar type pneumatization. Frontal sinuses: Near complete opacification of the right frontal sinus.Mild mucosal thickening of the left frontal sinus. Right sphenoethmoidal recess: Partially opacified Left sphenoethmoidal recess: Completely opacified Right ostiomeatal complex and frontal recess: Opacified Left ostiomeatal complex and frontal recess: Opacified Nasal septum: Rightward deviation with spurring Other: Keros type 2 olfactory fossa. No Onodi or Dominga cells. Mastoid air cells & middle ears: Clear. The middle ears areunremarkable. Soft tissues & Brain: No acute abnormality identified. Orbital contentsare within normal limits. Report All CT scans at this facility use dose modulation, iterativereconstruction, and/or weight based dosing when appropriate to reduce radiation dose to as low asreasonably achievable. Ordering Provider: Richa Gregory FINAL REPORT Dictated: 02/12/2024 1:41 pm Viktor Crabtree DO Signed (Electronic Signature): 02/12/2024 1:41 pm Signed by: Viktor Crabtree DO Transcribed by: SOLIS Technologist: CHANA us Richa Gregory MD [facility] Final Resul t documented in this encounter Visit Diagnoses Not on filedocumented in this encounter Care Teams Manager Clinical Research Relationship Specialty Start Date End Date Gera Teresa MD PCP - General Family Medicine 12/16/23 documented as of this encounter
--- OUTSIDE RECORDS SUMMARY | 2025-03-04 07:30 | XMS_ITS | Encounter Summary ---
Author Organization [facility] Address [facility] [id number] [address] [place] [address] Care Team Providers Care Natural Foods Clerk Name Role Phone Liliana Valles Renetta SAMSON Primary Care Provider + Encounter Details Date Type Department Care Team (Late Contact Info) Description 09/12/2022 Orders Only [facility] Internal Medicine - Family Medicine [address] [place] [address] External, Scanning Provider Social History Tobacco Use [...] Office Visit [facility] Pulmonary/Sleep Medicine [address] [address] Annetta Trujillo MD [address] [place] [address] 05/12/2025 4:00 PM EDT Office Visit [facility] Internal Medicine - Family Medicine [address] [place] [address] Liliana Valles APRN-HAND ALTERATIONS TAILOR [address] [place] [address] documented as of this encounter Procedures Procedure Name Priority Date/Time Associated Diagnosis Comments MULTIPLE LABS Routine 09/11/2022 documented in this encounter Results * Multiple labs (09/11/2022) 09/11/2022 us Scanning Provider External [facility] Final Result MANUALLY TRANSCRIBED RESULTS documented in this encounter Visit Diagnoses Not on filedocumented in this encounter Additional Health Concerns Infection Onset Date Last Indicated Resolved Time Respiratory Rule-Out 01/17/2025 01/17/2025 025 11:50 AM EDT documented as of this encounter Care Teams Natural Foods Clerk Relationship Specialty Start Date End Date Liliana Valles APRN-CNP [address] [place] [address] PCP - General Family Medicine 01/17/25 documented as of this encounter
--- OUTSIDE RECORDS SUMMARY | 2025-03-04 07:30 | XMS_ITS | Clinical Summary ---
Author Organization [employer] tem Address [id number] [address] 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 Active methIMAzole (TAPAZOLE) 10 mg tablet Take 1 tablet (10 mg total) by mouth 3 (three) times a week. Active SYMBICORT 160-4.5 mcg/actuation inhalerIndication s:Unspecified asthma, uncomplicated INHALE 2 PUFFS BY MOUTH TWICE DAILY 10.2 g 5 04/21/20 23 Active alendronate (FOSAMAX) 70 mg tabletIndications :Osteoporosis without current pathological fracture, unspecified osteoporosis type TAKE 1 TABLET BY MOUTH EVERY 7 (SEVEN) days in IN THE MORNING WITH water ON AN EMPTY STOMACH and nothing else BY MOUTH and remain upright for 30 mins 4 tablet 11 05/18/20 24 Active montelukast (SINGULAIR) 10 mg tabletIndications :Allergic rhinitis, unspecified TAKE 1 TABLET BY MOUTH IN THE EVENING 90 tablet 2 09/13/20 24 Active cyproheptadine (PERIACTIN) 4 mg tabletIndications :Migraine without aura, not intractable, without status migrainosus TAKE 1 TABLET BY MOUTH NIGHTLY NEEDED for allergies 90 tablet 1 12/08/19 25 Active losartan (COZAAR) 50 mg tabletIndications :Essential (primary) hypertension TAKE 1 TABLET BY MOUTH DAILY 90 tablet 1 02/09/20 25 Active losartan (COZAAR) 50 mg tabletIndications :Essential (primary) hypertension TAKE 1 TABLET BY MOUTH DAILY 90 tablet 1 08/05/20 24 025 Discontinued Active Problems Problem Noted Date Diagnosed Date Abdominal pain 01/17/2025 Pneumonia of right upper lobe due to infectious organism 01/17/2025 Rectal polyp 10/20/2024 Personal history of adenomatous and serrated col on polyps 08/01/2024 Hiatal hernia 06/17/2024 Gastroesophageal reflux disease 06/17/2024 Asthma 06/17/2024 Chronic ethmoidal sinusitis 04/07/2024 Deviated nasal septum 04/07/2024 Sinusitis 04/01/2024 Kidney stone 04/01/2024 Chronic pansinusitis 01/12/2024 Nasal polyp 01/12/2024 Moderate persistent asthma without complication 12/05/2022 Calculus of ureter 10/25/2022 Graves' disease 10/25/2022 Hyperthyroidism 10/25/2022 Overweight with body mass index (BMI) 25.0-29.9 10/25/2022 Pulmonary embolism 10/25/2022 LILO (obstructive sleep apnea) 10/25/2022 Obesity (BMI 30-39.9) 10/25/2022 Hypokalemia 12/17/2019 12/05/2022 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 12/06/19 Essential hypertension 11/26/2019 Resolved Problems Problem Noted Date Diagnosed Date Resolved Date Hypertension 10/25/2022 12/05/2022 Encounters Date Type Department Care Team Description 02/06/2025 Refill [facility] - Family Medicine [address] [place] [address] Liliana Valles TECHNOLOGY PROGRAM MANAGER-AUDITING CLERK Essential (primary) hypertension 01/27/2025 11:20 AM EDT Office Visit [facility] [address] [place] [address] Liliana Valles TECHNOLOGY PROGRAM MANAGER-AUDITING CLERK Community acquired pneumonia of right upper lobe of lung (Primary Dx); Hiatal hernia; Obstructive sleep apnea 01/26/2025 3:00 PM EDT Office Visit [facility] Pulmonary/Sleep Medicine [address] [place] [address] Joanna Palacios, MALI LILO (obstructive sleep apnea) (Primary Dx); BMI 30.0-30.9,adult; Obesity (BMI 30-39.9); Difficulty with CPAP use 01/25/2025 Travel 01/19/2025 Telephone [facility] Internal [facility] - Family Medicine [address] [place] [address] Jo Lindquist RN Transition Of Care 01/17/2025 9:44 AM EDT - 01/18/2025 1:45 PM EDT Hospital Encounter [facility] - Acute Care [address] [place] [address] Jenny Mojica, TECHNOLOGY PROGRAM MANAGER-AUDITING CLERK Ridge Blankenship MD Asif, Muhamid M, MD Pneumonia of right upper lobe due to infectious organism (Primary Dx); Intractable nausea and vomiting Discharge Disposition: Home 01/17/2025 Travel 01/13/2025 11:00 AM EDT Office Visit [facility] - Pain Management Clinic [address] [place] [address] Wesley Ortega PA Thoracic spondylosis without myelopathy (Primary Dx) 01/13/2025 Travel 01/12/2025 Travel 01/05/2025 Travel 12/31/2024 9:05 AM EDT - 12/31/2024 11:59 PM EDT Hospital Encounter [facility] - Radiology [address] [place] [address] Neck pain Discharge Disposition: Home 12/31/2024 9:00 AM EDT - 12/31/2024 9:04 AM EDT Hospital Encounter [facility] - Radiology [address] [place] [address] Mid back pain on left side Discharge Disposition: Home 12/30/2024 11:40 AM EDT Office Visit [facility] - Family Medicine [address] [place] [phone] Liliana Valles, TECHNOLOGY PROGRAM MANAGER-AUDITING CLERK Mid back pain on left side (Primary Dx); Neck pain 12/29/2024 Travel 12/20/2024 Orders Only [facility] - [facility] Medicine [address] [place] [phone] Ref Prov, Not In System 12/04/2024 Refill [facility] - Family Medicine [address] [place] [phone] Liliana Valles, TECHNOLOGY PROGRAM MANAGER-AUDITING CLERK Migraine without aura, not intractable, without status migrainosus 12/02/2024 8:44 AM EDT - 12/02/2024 11:59 PM EDT Hospital Encounter [facility] - Mammography/DEXA Imaging [address] [place] [phone] Encounter for screening mammogram for malignant neoplasm of breast Discharge Disposition: Home from Last 3 Months Immunizations Immunization Administration Dates Next Due Influenza (IM) Preservative Free 06/24/2024,05/17,06/28/2015 Influenza LAIV (Nasal) 06/27/2022 Influenza Nasal, Unspecified Formulation 09/06/2013 Influenza Vaccine, Quadrival ent, Adjuvanted 06/19/2023 Influenza, Injectable, Quadrivalent 05/10/2018 Influenza, Injectable, quadr ivalent (PF) 06/19/2023,06/27/2022,06/27/2021,2019,06/08/2019,05/09/2018,05/09/2017 Influenza, Unspecified 06/19/2023,2021,06/27/2021,2019,06/08/2019,05/09/2018,05/09/2017,0 06/13/2016,06/28/2015,09/06/2013 Pneumococcal Conjugate 20-valent 04/11/2023 Tdap 04/08/2014 Zoster Vaccine Recombinant 08/06/2023,04/11/2023 Family History Medical History Relation Name Comments Cancer Father Carlin Hickey Diabetes Father Carlin Hickey Alcohol abuse Maternal Grandfather Viktor Barajas Lung cancer Maternal Grandfather Viktor Barajas Mental illness Maternal Grandmother Prema Barajas Diabetes Mother Lula Rodriguez Mental illness Mother Lula Rodriguez Miscarriages / Stillbirths Mother Lula Bell n Stroke Mother Lula Rodriguez Diabetes Paternal Grandmother Tonya Hickey Drug abuse Son 1 Misael [place] Drug abuse Son 2 Misael [place] Breast cancer Neg Hx Relation Name Status Comments Father Carlin Hickey Alive Maternal Grandfather Viktor Barajas Alive Maternal Grandmother Prema Barajas Alive Mother Lula Rodriguez Alive Paternal Grandmother Tonya Hickey Alive Son 1 Misael [place] Alive Son 2 Misael [place] Alive Social History Tobacco Use Types Packs/Day Years Used Date Smoking Tobacco: Former Cigarettes 0.2 18 1 987 - 2005 Smokeless Tobacco: Never Tobacco Cessation:Counseling Given: Not Answered Alcohol Use Standard Drinks/Week Comments Not Currently 0 (1 standard drink = 0.6 oz pur e alcohol) [facility] [employer] Answer Date Recorded In the past 12 months has [employer], gas, oil, or water company threatened to shut off services in your home? No 01/17/2025 Social Connection and Isolat ion Panel [NHANES] Answer Date Recorded In a typical week, how many times do you talk on the phone with family, friends, or neighbors? More than three times a week 10/23/2022 How often do you get togethe r with friends or relatives? Twice a week 10/23/2022 How often do you attend [facility] or zoroastrian services? More than 4 times per year 10/23/2022 Do you belong to any clubs o r organizations such as restoration groups, unions, fraternal or athletic groups, or [...] medical care, and heating? Not very hard 12/29/2024 PHQ-2 Answer Date Recorded Total Score 0 01/27/2025 [facility] - Occupational Stress Questionnaire Answer Date [...] medical appointments or from getting medications? No 01/2025 In the past 12 months, has l ack of transportation kept you from meetings, work, or from getting things needed for daily living? No 01/17/2025 Housing Instability Answer Date Recorde d Are you worried or concerned that in the next two months you may not have stable housing that you own, rent or stay in as a part of a household? No 01/17/2025 Childcare Answer Date Recorded Do problems getting child ca re make 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 work or study? No 10/23/2022 Employment Answer Date Recorded Do you need help finding a [facility] career center and/or a training program? No 10/23/2022 Hunger Screening Answer Date Recorded Within the past 12 months we worried whether our food would run out before we got money to buy more. Never True 01/27/2025 Within the past 12 months th e food we bought just didn't last and we didn't have money to get more. Never True 01/27/2025 Purpose - Life Answer Date Recorded I [...] on file Sexual Orientation Not on file Last Filed Vital Signs Vital Sign Reading Time Taken Comments Blood Pressure 128/78 01/27/2025 11:25 AM EDT Pulse 85 01/27/2025 11:25 AM EDT Temperature 36.6 C (97.9 F) 01/27/2025 11:25 AM EDT Respiratory Rate 18 01/27/2025 11:25 AM EDT Oxygen Saturation 96% 01/27/2025 11:25 AM EDT Inhaled Oxygen Concentration - - Weight 83.9 kg (185 lb) 01/27/2025 11:25 AM EDT Height 165.1 cm (5' 5 ) 01/27/2025 11:25 AM EDT Body Mass Index 30.79 01/27/2025 11:25 AM EDT Plan of Treatment Upcoming Encounters Date Type Department Care Team (Late st Contact Info) Description 03/08/2025 12:30 PM EDT Office Visit [facility] [address] [facility] [facility] [place] [phone] Annetta Trujillo MD [address] [facility] [address] [place] [address] 05/12/2025 4:00 PM EDT Office Visit [facility] - Family Medicine [address] [place] [phone] Liliana Valles, TECHNOLOGY PROGRAM MANAGER-AUDITING CLERK [address] [place] [address] Health Maintenance Due Date Last Done Comments Adult BMI Follow Up Plan 1980 Influenza Vaccine 05/16/2025 06/24/2024, , 06/19/2023, Additional history exists Mammogram 12/02/2025 12/02/2024, 02/09/2023, 11/02/2022, Additional history exists Adult BMI Screening 01/27/2026 01/27/2025 Depression Screening 01/27/2026 01/27/2025 Tobacco Screening 01/27/2026 01/27/2025 DTaP,Tdap and Td Vaccines (3 - Td or Tdap) 09/13/2034 09/13/2024, 04/08/2014 COVID-19 Vaccine Discontinued 09/27/2021, , 11/08/2020 Zoster (Shingles) Vaccine Completed 08/06/2023, Goals Goal Patient Goal Type Associated Problems Recent Progress Patient-Stated? Author Home with self care General Yes Lizbeth Mazariegos, RN Note: Evaluation of progress towards goal: Plans to return home with self care. Medical Devices Not on file Procedures Procedure Name Priority Date/Time Associated Diagnosis Comments CBC WITH AUTO DIFFERENTIAL Routine 01/18/2025 4:44 AM EDT MAGNESIUM Routine 01/18/2025 4:44 AM EDT COMPREHENSIVE METABOLIC PANEL Routine 01/18/2025 4:44 AM EDT POTASSIUM Routine 01/17/2025 9:28 PM EDT BLOOD CULTURE STAT 01/17/2025 11:57 AM EDT TROP I, HIGH SENSITIVITY 1 HOUR STAT 01/17/2025 11:51 AM EDT BLOOD CULTURE STAT 01/17/2025 11:[address] ABDOMEN AND PELVIS W CONT STAT 01/17/2025 11:36 AM EDT ECG 12-LEAD STAT 01/17/2025 11:28 AM EDT XR CHEST 1 VW STAT 01/17/2025 10:48 AM EDT PROCALCITONIN Add-On 01/17/2025 10:46 AM EDT TROPONIN I, HIGH SENSITIVITY 0 HOUR STAT 01/17/2025 10:46 AM EDT TROPONIN I, HIGH SENSITIVITY 0 HOUR STAT 01/17/2025 10:46 AM EDT LIPASE STAT 01/17/2025 10:46 AM EDT MAGNESIUM STAT 01/17/2025 10:46 AM EDT COMPREHENSIVE METABOLIC PANEL STAT 01/17/2025 10:46 AM EDT CBC WITH AUTO DIFFERENTIAL STAT 01/17/2025 10:46 AM EDT EXTRA TUBES BLUE TOP Routine 01/17/2025 10:45 AM EDT EXTRA TUBES Routine 01/17/2025 10:45 AM EDT SARS/FLU A+B/RSV BY NAAT/MOLECULAR (M4RT COLLECTION TUBE) STAT 01/17/2025 10:36 AM EDT LACTATE W/ REFLEX Routine 01/17/2025 10: 25 AM EDT XR SPINE CERVICAL 3 VWS OR LESS Routine 12/31/2024 9:18 AM EDT Neck pain XR SPINE THORACIC 3 VWS Routine 12/31/2024 9:17 AM EDT Mid back pain on left side XR CHEST 1 VW Routine 12/13/2024 1:41 PM EDT MAMM SCREENING BILATERAL W CAD Routine 12/02/2024 8:54 AM EDT Encounter for screening mammogram for malignant neoplasm of breast from Last 3 Months Results * (ABNORMAL) CBC auto differential (01/18/2025 4:44 AM EDT) Only the most recent of2 resultswithin the time period is included. WBC 10.7 4 - 11 x10E9/L 01/18/2025 5:38 AM EDT [facility] RBC Count 3.92 3.8 - 5.2 X10E12/L 01/18/2025 5:38 AM EDT [facility] Hemoglobin 11.7 11.7 - 15.5 g/dL 01/18/2025 5:38 AM EDT [facility] Hematocrit 34.3(L) 35 - 47 % 01/18/2025 5:38 AM EDT [facility] MCV 88 80 - 100 fL 01/18/2025 5:38 AM EDT [facility] MCH 30.0 27 - 34 pg 01/18/2025 5:38 AM EDT [facility] MCHC 34.2 32 - 36 g/dL 01/18/2025 5:38 AM EDT [facility] RDW 14.3 11.5 - 15 % 01/18/2025 5:38 AM EDT [facility] Platelet Count 251 150 - 450 X10E9/L 01/18/2025 5:38 AM EDT [facility] MPV 8.8 7 - 12 fL 01/18/2025 5:38 AM EDT [facility] Neutrophils Relative 71.4 % 01/18/2025 5:38 AM EDT [facility] Lymphocytes Relative 16.8 % 01/18/2025 5:38 AM EDT [facility] Monocytes Relative 10.9 % 01/18/2025 5:38 AM EDT [facility] Eosinophils Relative 0.5 % 01/18/2025 5:38 AM EDT [facility] Basophils Relative 0.4 % 01/18/2025 5:38 AM EDT [facility] Neutrophils Absolute (A) 7.6 10*3/uL 01/18/2025 5:38 AM EDT [facility] Lymphocytes Absolute 1.8 10*3/uL 01/18/2025 5:38 AM EDT [facility] Monocytes Absolute 1.2 10*3/uL 01/18/2025 5:38 AM EDT [facility] Eosinophils Absolute 0.0 10*3/uL 01/18/2025 5:38 AM EDT [facility] Basophils Absolute 0.0 10*3/uL 01/18/2025 5:38 AM EDT [facility] Differential Type AUTOMATED DIFFERENTIAL 01/18/2025 5:38 AM EDT [facility] Blood 01/18/2025 4:44 AM EDT 01/18/2025 5:20 AM EDT Emre D [facility] TECHNOLOGY PROGRAM MANAGER-AUDITING CLERK LAB BLOOD ORDERABLES Fin al Result Performing Organization Address City/[facility] Co de Phone Number [address] [address], [place] * Magnesium (01/18/2025 4:44 AM EDT) Only the most recent of2 resultswithin the time period is included. MAGNESIUM 2.2 1.8 - 2.6 mg/dL 01/18/2025 5:43 AM EDT [facility] Blood 01/18/2025 4:44 AM EDT 01/18/2025 5:20 AM EDT Emre D [facility] TECHNOLOGY PROGRAM MANAGER-AUDITING CLERK LAB BLOOD ORDERABLES Fin al Result Performing Organization Address City/[facility] Co de Phone Number [address] [place] [address], [place] * (ABNORMAL) Comprehensive metabolic panel (01/18/2025 4:44 AM EDT) Only the most recent of2 resultswithin the time period is included. SODIUM 139 134 - 146 mmol/L 01/18/2025 5:43 AM EDT [facility] POTASSIUM 3.9 3.5 - 5.0 mmol/L 01/18/2025 5:43 AM EDT [facility] CHLORIDE 109 98 - 109 mmol/L 01/18/2025 5:43 AM EDT [facility] CARBON DIOXIDE 25 22 - 32 mmol/L 01/18/2025 5:43 AM EDT [facility] ANION GAP 5 5 - 15 mmol/L 01/18/2025 5:43 AM EDT [facility] BLOOD UREA NITROGEN 15 5 - 27 mg/dL 01/18/2025 5:43 AM EDT [facility] CREATININE 0.43 0.40 - 1.00 mg/dL 01/18/2025 5:43 AM EDT [facility] Comment:METHOD TRACEABLE TO IDMS STANDARD GLUCOSE 96 65 - 99 mg/dL 01/18/2025 5:43 AM EDT [facility] CALCIUM 7.4(L) 8.5 - 10.5 mg/dL 01/18/2025 5:43 AM EDT [facility] TOTAL PROTEIN 5.9(L) 6.0 - 8.0 g/dL 01/18/2025 5:43 AM EDT [facility] ALBUMIN 2.4(L) 3.2 - 5.3 g/dL 01/18/2025 5:43 AM EDT [facility] ALKALINE PHOSPHATASE 98 39 - 130 U/L 01/18/2025 5:43 AM EDT [facility] AST 26 <=41 U/L 01/18/2025 5:43 AM EDT [facility] ALT 30 <=31 U/L 01/18/2025 5:43 AM EDT [facility] BILIRUBIN,TOTAL 0.7 0.3 - 1.2 mg/dL 01/18/2025 5:43 AM EDT [facility] EGFR Non-Race Dependent >90 >=60 ml/min/1.7 3sq.m 01/18/2025 5:43 AM T [facility] Comment: eGFR not reported due to non-numeric value for Creatinine. Reported eGFR is based on the CKD-EPI 2020 equation that does not use a race coefficient. Blood 01/18/2025 4:44 AM EDT 01/18/2025 5:20 AM EDT us Emre Fuentes TECHNOLOGY PROGRAM MANAGER-AUDITING CLERK LAB BLOOD ORDERABLES Fin al Result Performing Organization Address City/[facility]/ZIP Co de Phone Number [address] [place] [address], [place] * (ABNORMAL) Potassium (01/17/2025 9:28 PM EDT) POTASSIUM 3.3(L) 3.5 - 5.0 mmol/L 01/17/2025 10:22 PM EDT [facility] Blood Venous blood / Unknown 01/17/2025 9:28 PM EDT 01/17/2025 10:03 PM EDT us Grace Eid MD LAB BLOOD ORDERABLES Final Res ult Performing Organization Address [facility] Co de Phone Number [address] [place] [address], [place] * Blood culture (01/17/2025 11:57 AM EDT) Only the most recent of2 resultswithin the time period is included. [facility] CULTURE RESULTS NO GROWTH 5 DAYS 01/22/2025 6:01 PM EDT [facility] Blood Venous blood / Unknown 01/17/2025 11:57 AM EDT 01/17/2025 12:09 PM EDT Narrative [facility] - 01/22/2025 6:01 PM EDT Suboptimal volume of blood collected, Results may be affected. us Jenny Mojica TECHNOLOGY PROGRAM MANAGER-AUDITING CLERK MICROBIOLOGY - GENER AL ORDERABLES Final Result Performing Organization Address City/[facility] Co de Phone Number [facility] [address] [place] [address], [place] [phone] * Troponin I, High Sensitivity 1 Hour (01/17/2025 11:51 AM EDT) TROPONIN I, HIGH SENSITIVITY 9 <16 ng/L 01/17/2025 12:41 PM EDT [facility] Blood Venous blood / Unknown 01/17/2025 11:51 AM EDT 01/17/2025 12:09 PM EDT us Jenny Lizbeth Mojica TECHNOLOGY PROGRAM MANAGER-AUDITING CLERK LAB BLOOD ORDERABLES Final Result [facility] [address] [place] [address], [place] * CT abdomen and pelvis with contrast (01/17/2025 11:36 AM EDT) Anatomical Region Laterality Modality Body, Abdomen, Body Covera N/A Compu nu Tomography 01/17/2025 11:3 8 AM EDT Narrative 01/17/2025 11:39 AM EDT CLINICAL INFORMATION: right sided lower abd pain [...] De Luna MD on 01/17/2025 11:39 AM Procedure Note Justin De Luna MD - 01/17/2025 CLINICAL INFORMATION: right sided lower abd pain with N/V, possible subjective fevers, has hadappenedectomy hysterectomy and cholecystectomy TECHNIQUE: CT ABDOMEN AND PELVIS W CONT CT images of the abdomen and pelvis are obtained. Intravenous contrast wasadministered. Patient status post appendectomy and cholecystectomy. Thereis a moderate hiatal hernia noted. Bowel is nondistended. No pericecalinflammatory stranding. No colonic wall thickening identified. There are afew colonic diverticula appreciated. Portal and mesenteric vessels appear toenhance normally. Osseous structures are intact. Lung bases clear. No freepelvic fluid. IMPRESSION: Moderate hiatal hernia. All CT scans at this facility use dose modulation, iterativereconstruction, and/or weight based dosing when appropriate to reduceradiation dose to as low as reasonably achievable. Finalized by Justin De Luna MD on 01/17/2025 11:39 AM Jenny Mojica APRN-AUDITING CLERK IMG CT ORDERABLES Fi nal Result * ECG 12 lead (01/17/2025 11:28 AM EDT) 01/17/2025 11:2 8 AM EDT Narrative [facility] - 01/17/2025 1:29 PM EDT Jenny Mojica APRN-[facility] ECG ORDERABLES Kathryn l Result [facility] * X-ray chest 1 view (01/17/2025 10:48 AM EDT) Only the most recent of2 resultswithin the time period is included. Anatomical Region Laterality Modality Body, Chest N/A Computed Radiogr aphy 01/17/2025 10:5 0 AM EDT Narrative 01/17/2025 10:50 AM EDT Single view chest History:flu like symptoms since Friday Difficulty breathing, shortness of breath Comparison: 11/13/2020 Findings: Single portable view of the chest. Right upper lobe opacity compatible with pneumonia. No large effusion or pneumothorax. Cardiomediastinal silhouette is stable. Impression: Right upper lobe pneumonia. Finalized by Cordell Stone MD on 01/17/2025 10:50 AM Procedure Note Cordell Stone MD - 01/17/2025 Single view chest History:flu like symptoms since Friday Difficulty breathing, shortnessof breath Comparison: 11/13/2020 Findings: Single portable view of the chest. Right upper lobe opacity compatiblewith pneumonia. No large effusion or pneumothorax. Cardiomediastinalsilhouette is stable. Impression: Right upper lobe pneumonia. Finalized by Cordell Stone MD on 01/17/2025 10:50 AM Jenny SAMSON IMG DIAGNOSTIC IMAGI NG ORDERABLES Final Result * Troponin I, High Sensitivity 0 Hour (01/17/2025 10:46 AM EDT) TROPONIN I, HIGH SENSITIVITY 7 <16 ng/L 01/17/2025 11:17 AM EDT [facility] Blood Venous blood / Unknown 01/17/2025 10:46 AM EDT 01/17/2025 10:48 AM EDT Jenny SAMSON LAB BLOOD ORDERABLES Final Result [facility] [address] [place] [address], * (ABNORMAL) Procalcitonin (01/17/2025 10:46 AM EDT) PROCALCITONIN 0.81(H) <0.05 ng/mL 01/17/2025 3:01 PM EDT [facility] Blood Venous blood / Unknown 01/17/2025 10:46 AM EDT 01/17/2025 10:48 AM EDT Narrative [facility] - 01/17/2025 3:01 PM EDT <0.50 ng/mL - Low risk of severe sepsis and/or septic shock. <2.00 ng/mL - Recommend retesting within 6-24 hours. >2.00 ng/mL - High risk of sepsis and/or septic shock. us Jenny K Jaskolski TECHNOLOGY PROGRAM MANAGER-AUDITING CLERK LAB BLOOD ORDERABLES Final Result [address] [place] [address], [place] * Lipase (01/17/2025 10:46 AM EDT) LIPASE 20 17 - 40 U/L 01/17/2025 11:06 AM EDT [facility] Blood Venous blood / Unknown 01/17/2025 10:46 AM EDT 01/17/2025 10:48 AM EDT us Jenny Mojica TECHNOLOGY PROGRAM MANAGER-AUDITING CLERK LAB BLOOD ORDERABLES Final Result [address] [place] [address], [place] * Light Blue Top (01/17/2025 10:45 AM EDT) Extra Tube Auto Resulted 01/17/2025 12:01 PM EDT [facility] Blood Venous blood / Unknown 01/17/2025 10:45 AM EDT 01/17/2025 10:38 AM EDT us Jenny Mojica TECHNOLOGY PROGRAM MANAGER-AUDITING CLERK LAB BLOOD ORDERABLES Final Result Performing Organization Address City/[facility]/ZIP Co de Phone Number [address] [place] [address], [place] * SARS/FLU A+B/RSV by NAAT/Molecular (M4RT Collection Tube) (01/17/2025 10:36 AM EDT) FLU A PCR Negative Negative 01/17/2025 11:50 AM EDT [facility] FLU B PCR Negative Negative 01/17/2025 11:50 AM EDT [facility] RSV BY PCR Negative Negative 01/17/2025 11:50 AM EDT [facility] SARS COV 2 BY PCR Not Detected Not Detected 01/17/2025 11:50 AM EDT [facility] Swab Nasopharyngeal structure / Unknown 01/17/2025 10:36 AM EDT 01/17/2025 10:48 AM EDT Narrative [facility] - 01/17/2025 11:50 AM EDT The Xpert Xpress SARS-CoV-2/Flu/RSV Plus test is a rapid, [...] operators who are performing tests using either [employer] or [employer] systems and is limited to laboratories that [...] inhibition unable to be resolved with specimen repeat. Fact Sheet for Healthcare Providers: https://www.fda.gov/media/131891/download Fact Sheet for Patients: https://www.fda.gov/media/203819/download us Jenny K Jaskolski TECHNOLOGY PROGRAM MANAGER-AUDITING CLERK MICROBIOLOGY - GENER AL ORDERABLES Final Result Performing Organization Address City/[facility]/ZIP Co de Phone Number [address] [place] [address], [place] * Lactate w/ Reflex (01/17/2025 10:25 AM EDT) LACTATE W/REFLEX 1.2 0.4 - 2.0 mmol/L 01/17/2025 10:54 AM EDT [facility] Blood Venous blood / Unknown Venipuncture / Unknown 01/17/2025 10:25 AM EDT 01/17/2025 10:35 AM EDT Narrative [facility] - 01/17/2025 10:54 AM EDT Result did not trigger repeat Lactate, re-order if needed. Jenny Mojica TECHNOLOGY PROGRAM MANAGER-AUDITING CLERK LAB BLOOD ORDERABLES Final Result Performing Organization Address [facility] de Phone Number [address] [place] [address], [place] * X-ray spine cervical 3 views or less (12/31/2024 9:18 AM EDT) Anatomical Region Laterality Modality MSK, Neuro, Spine, C-spine N/A Compu nu Radiography 01/01/2025 11:1 1 PM EDT Narrative 01/01/2025 11:12 PM EDT EXAM: XR SPINE CERVICAL 3 VWS OR LESS CLINICAL INDICATIONS: Neck pain FINDINGS/IMPRESSION: Vertebral body heights, alignment is maintained. No significant intervertebral disc space narrowing. Mild multilevel facet arthropathy. Diffuse bone demineralization for age. Spinal canal or neuroforaminal narrowing is better assessed on MRI if clinically warranted. Finalized by Panda Alvarenga on 01/01/2025 11:12 PM Procedure Note Panda Alvarenga MD - 01/01/2025 EXAM: XR SPINE CERVICAL 3 VWS OR LESS CLINICAL INDICATIONS: Neck pain FINDINGS/IMPRESSION: Vertebral body heights, alignment is maintained. No significant intervertebral disc space narrowing. Mild multilevel facet arthropathy. Diffuse bone demineralization for age. Spinal canal or neuroforaminal narrowing is better assessed on MRI ifclinically warranted. Finalized by Panda Alvarenga on 01/01/2025 11:12 PM [facility] Renetta Valles [facility] DIAGNOSTIC IMAGING O RDERABLES Final Result * X-ray spine thoracic 3 views (12/31/2024 9:17 AM EDT) Anatomical Region Laterality Modality MSK, Neuro, Spine, T-spine N/A Compu nu Radiography 01/01/2025 11:0 7 AM EDT Narrative 01/01/2025 11:08 AM EDT XR SPINE THORACIC 3 VWS Clinical history:Mid back pain on left side Comparison: None. Findings: Exaggerated thoracic kyphosis with multilevel degenerative disc disease. No vertebral body height loss. Impression: Multilevel degenerative disc disease without evidence of acute osseous abnormality. Finalized by Cordell Stone MD on 01/01/2025 11:08 AM Procedure Note Cordell Stone MD - 01/01/2025 XR SPINE THORACIC 3 VWS Clinical history:Mid back pain on left side Comparison: None. Findings: Exaggerated thoracic kyphosis with multilevel degenerative disc disease.No vertebral body height loss. Impression: Multilevel degenerative disc disease without evidence of acute osseousabnormality. Finalized by Cordell Stone MD on 01/01/2025 11:08 AM [facility] O RDERABLES Final Result * Mammography screening bilateral with CAD (12/02/2024 8:54 AM EDT) Anatomical Region Laterality Modality Breast Bilateral Mammography 12/03/2024 9:30 AM EDT Narrative 12/03/2024 9:32 AM EDT YANI BECKI OPAL 1960 [id number] EXAM: MAMM SCREENING BILATERAL W CAD, 12/02/2024 [...] 9:32 AM 1 b MAMM 1 YR FDA Accredited Performing Facility: [facility] - Mammography/DEXA Imaging [address] [id number] Procedure Note Niru Palmer MD - 12/03/2024 YANI JOSEPH 1960 [id number] EXAM: MAMM SCREENING BILATERAL W CAD, 12/02/2024 8:45 AM CLINICAL INDICATIONS: Screening, Encounter for screening mammogram formalignant neoplasm of breast COMPARISON: Multiple prior mammograms were viewed for comparison datingback to 09/01/2019 TECHNIQUE: Bilateral digital tomosynthesis MLO and CC views of the breastswere obtained, with creation of synthetic 2D views. Computer aideddetection was utilized. FINDINGS: There are scattered areas of fibroglandular density. There are no suspicious masses, calcifications, or areas of architecturaldistortion. IMPRESSION: No mammographic evidence of malignancy. BI-RADS: BI-RADS 1 - Negative RECOMMENDATION: Routine screening mammogram in 1 year. RISK ASSESSMENT: TC Lifetime risk: 3.7%. The patient's reported personal and family medical history was usedcalculate their Tyrer-Cuzick lifetime risk of malignancy. Scores less than20% are not considered high risk per ACR guidelines and patient shouldcontinue with the above recommendation. Finalized by Niru Palmer MD on 12/03/2024 9:32 AM 1 b MAMM 1 YR FDA Accredited Performing Facility: [facility] - Mammography/DEXA Imaging [address] [facility] [id number] Liliana SAMSON IMG MAMMOGRAPHY ORDERABL ES Final Result from Last 3 Months Insurance FRONTPATH Advance Directives * Full Code (Latest Code Status on File) Date Activated Date Inactivated Comments 01/17/2025 1:25 PM 01/18/2025 4:16 PM Care Teams Glue Plant Operator Relationship Specialty Start Date End Date Liliana Valles APRN-CNP [address] [place] [address] PCP - General Family Medicine 01/17/25
--- OUTSIDE RECORDS SUMMARY | 2025-03-04 07:30 | XMS_ITS | Encounter Summary ---
[id number] [address] [place] [address] Care Team Providers Care Log Rider Name Role Phone Liliana Valles APRN-ALEKSANDRA Primary Care Provider + Encounter Details Date Type Department Care Team (Late st Contact Info) Description 03/05/2024 [facility] [address] [place] [address] Fatoumata Nuñez, KYLE Social History Tobacco Use Types Packs/Day Years [...] How often do you attend chur or anabaptism services? More than 4 times per year 10/23/2022 Do you belong to any clubs o r organizations such as jehovah's witness groups, unions, fraternal or athletic groups, or [...] Answer Date Recorded Total Score 0 03/05/2024 [facility] of Occupat ional Health - Occupational Stress [...] Recorded Do you need help finding a [facility] career center and/or a training program? [...] Office Visit [facility] [address] [place] [address] Annetta Trujillo MD [address] [place] [address] 05/12/2025 4:00 PM EDT Office Visit [facility] Internal Medicine - Family Medicine [address] [place] [address] Lilaina Valles, VIDEO TECHNICIAN-COO [address] [place] [address] documented as of this encounter Visit Diagnoses Not on filedocumented in this encounter Additional Health Concerns Infection Onset Date Last Indicated Resolved Time Respiratory Rule-Out 01/17/2025 01/17/2025 025 11:50 AM EDT Assessment Noted Time PHQ-9 Depression Total Score: 0 03/05/20 24 8:39 AM EDT documented as of this encounter Care Teams Log Rider Relationship Specialty Start Date End Date Liliana Valles, VIDEO TECHNICIAN-COO [address] [place] [place] [address] PCP - General Family Medicine 01/17/25 documented as of this encounter
--- OUTSIDE RECORDS SUMMARY | 2025-03-04 07:30 | XMS_ITS | Encounter Summary ---
Author Organization [facility] Address [facility] [id number] [address] [place] [address] Care Team Providers Care Hose Sprayer Name Role Phone Liliana Valles Primary Care Provider + Encounter Details Date Type Department Care Team (Late st Contact Info) Description 11/24/2023 Orders Only [facility] Internal Medicine - Family Medicine [address] [place] [address] External, Scanning Provider Social History Tobacco Use [...] week 10/23/2022 How often do you attend [facility] or pentecostalism services? More than 4 times per year [...] Answer Date Recorded Total Score 0 07/24/2023 [facility] of Occupat ional [facility] - Occupational Stress Questionnaire Answer Date [...] got money to buy more. Never True 07/24/2023 Within the past 12 months th e food we bought just didn't last and we didn't have money to get more. Never True 07/24/2023 Purpose - Life Answer Date Recorded I [...] [address] [place] [address] Annetta Trujillo MD [address] [place] [address] 05/12/2025 4:00 PM EDT Office Visit [facility] - Family Medicine [address] [place] [phone] Liliana Valles, LEARNING COACH-BRAND MARKETING COORDINATOR [address] [place] [address] documented as of this encounter Procedures Procedure Name Priority Date/Time Associated Diagnosis Comments XR ABDOMEN AP 1 VW Routine 11/22/2023 2: 25 PM EST US RETROPERITONEAL LIMITED Routine 11/21 2:24 PM EST documented in this encounter Results * X-ray abdomen ap 1 view (11/22/2023 2:25 PM EST) Anatomical Region Laterality Modality Body, Abdomen N/A Computed Radiogr aphy us Scanning Provider External IMG DIAGNOSTIC IMAGIN G ORDERABLES Final Result * Ultrasound retroperitoneal limited (11/22/2023 2:24 PM EST) Anatomical Region Laterality Modality Body Ultrasound us Scanning Provider External IMG US ORDERABLES Fin al Result documented in this encounter Visit Diagnoses Not on filedocumented in this encounter Additional Health Concerns Infection Onset Date Last Indicated Resolved Time Respiratory Rule-Out 01/17/2025 01/17/2025 025 11:50 AM EDT Assessment Noted Time PHQ-9 Depression Total Score: 0 07/24/20 23 10:25 AM EST documented as of this encounter Care Teams Hose Sprayer Relationship Specialty Start Date End Date Liliana Valles, LEARNING COACH-BRAND MARKETING COORDINATOR [address] [place] [address] PCP - General Family Medicine 01/17/25 documented as of this encounter
--- OUTSIDE RECORDS SUMMARY | 2025-03-04 07:30 | XMS_ITS | Encounter Summary ---
Author Organization [facility] Address [facility] [place][id number] [address] [place] [address] Care Team Providers Care Top Cager Name Role Phone Liliana Valles APRN-ALEKSANDRA Primary Care Provider + Encounter Details Date Type Department Care Team (Late st Contact Info) Description 10/10/2024 Orders Only [facility] Internal [facility] - Family Medicine [address] [place] [address] Charan Plata, [address] [place] [address] History of colon polyps (Primary Dx) Social [...] often do you attend chur ch or anabaptist services? More than 4 times per year 10/23/2022 Do you belong to any clubs o r organizations such as yazidi groups, unions, fraternal or athletic groups, or [...] Answer Date Recorded Total Score 0 06/24/2024 [facility] of Occupat ional [facility] - Occupational Stress Questionnaire Answer Date [...] Recorded Do you need help finding a [facility] and/or a training program? [...] Office Visit [facility] [address] [place] [address] Annetta Trujillo MD [address] [place] [address] 05/12/2025 4:00 PM EDT Office Visit [facility] - Family Medicine [address] [place] [address] Liliana Valles, BED PLACEMENT COORDINATOR-INSURANCE AGENCY MANAGER [address] [place] [address] documented as of this encounter Visit Diagnoses Diagnosis History of colon polyps- Primary documented in this encounter Additional Health Concerns Infection Onset Date Last Indicated Resolved Time Respiratory Rule-Out 01/17/2025 01/17/2025 025 11:50 AM EDT Assessment Noted Time PHQ-9 Depression Total Score: 0 06/24/20 24 1:44 PM EDT documented as of this encounter Care Teams Top Cager Relationship Specialty Start Date End Date Liliana Valles, BED PLACEMENT COORDINATOR-INSURANCE AGENCY MANAGER [address] [place] [address] PCP - General Family Medicine 01/17/25 documented as of this encounter
--- OUTSIDE RECORDS SUMMARY | 2025-03-04 07:30 | XMS_ITS | Encounter Summary ---
Author Organization [facility] Address [facility] [id number] [address] [place] [address] Care Team Providers Care Professor Of Legal Studies Name Role Phone Liliana Valles Primary Care Provider + Encounter Details Date Type Department Care Team (Late st Contact Info) Description 02/03/2024 Orders Only [facility] Medicine - Family Medicine [address] [place] [address] External, Scanning Provider Social History Tobacco Use [...] week 10/23/2022 How often do you attend [facility] or alevism services? More than 4 times per year 10/23/2022 Do you belong to any clubs o r organizations such as mosque groups, unions, fraternal or athletic groups, or [...] Answer Date Recorded Total Score 0 07/24/2023 [facility] of Occupat ional [facility] - Occupational Stress Questionnaire Answer Date [...] Office Visit [facility] [address] [place] [address] Annetta Trujillo MD [address] [place] [address] 05/12/2025 4:00 PM EDT Office Visit [facility] Medicine - Family Medicine [address] [place] [address] Liliana Valles APRN-ALEKSANDRA [address] [place] [address] documented as of this encounter Procedures Procedure Name Priority Date/Time Associated Diagnosis Comments CT ABDOMEN AND PELVIS WO CONT Routine 02/02/2024 11:38 AM EDT documented in this encounter Results * CT abdomen and pelvis without contrast (02/02/2024 11:38 AM EDT) Anatomical Region Laterality Modality Body, Abdomen, Body Covera N/A Compu nu Tomography us Scanning Provider External IMG CT ORDERABLES Fin al Result documented in this encounter Visit Diagnoses Not on filedocumented in this encounter Additional Health Concerns Infection Onset Date Last Indicated Resolved Time Respiratory Rule-Out 01/17/2025 01/17/2025 025 11:50 AM EDT Assessment Noted Time PHQ-9 Depression Total Score: 0 07/24/20 23 10:25 AM EST documented as of this encounter Care Teams Professor Of Legal Studies Relationship Specialty Start Date End Date Liliana Valles APRN-MANAGER FOOD BEVERAGE [address] [place] [address] PCP - General Family Medicine 01/17/25 documented as of this encounter
--- OUTSIDE RECORDS SUMMARY | 2025-03-04 07:30 | XMS_ITS | Clinical Summary ---
Author Organization [facility] Address [address] [place] [address] Phone Care Team Providers Care Rn Enterostomal Name Role Phone Unavailable Primary Care Provider Unavailabl e Allergies No known active allergies Medications alendronate (Fosamax) 70 mg tablet Take 1 tablet (70 mg) by mouth once a week. 3 Active aspirin 81 mg EC tablet 1 (one) time each day at the same time Active budesonide-form oteroL (Symbicort) 160-4.5 mcg/actuation inhaler Inhale 2 puffs twice a day. 3 Active cyproheptadine (Periactin) 4 mg tablet Take 1 tablet (4 mg) by mouth once daily at bedtime. 4 Active losartan (Cozaar) 50 mg tablet Take 1 tablet (50 mg) by mouth once daily. 4 Active montelukast (Singulair) 10 mg tablet Take 1 tablet (10 mg) by mouth once daily at bedtime. 4 Active methIMAzole (Tapazole) 10 mg tablet 1 tablet (10 mg) 3 (three) times a week. Friday, Friday, Friday Active fluticasone (Flonase Sensimist) 27.5 mcg/actuation nasal spray Administer 2 sprays into each nostril once daily. Active traMADol (Ultram) 50 mg tabletIndicatio ns:Surgery, elective,Chroni c ethmoidal sinusitis Take 1 tablet (50 mg) by mouth every 6 hours if needed for severe pain (7 - 10). 16 tablet 4 Active oxymetazoline (Afrin, oxymetazoline,) 0.05 % nasal sprayIndication s:Surgery, elective,Chroni c ethmoidal sinusitis Administer 2 sprays into each nostril every 6 hours if needed (bleeding). Do not use for more than 3 days. 30 mL 4 Active predniSONE (Deltasone) 10 mg tabletIndicatio ns:Chronic ethmoidal sinusitis,Nasal polyp 30mg PO Qday for 3 days, 20mg PO Qday for 3 days, 10 mg PO Qday for 4 days 19 tablet 4 Active mometasone furoate, bulk, 100 % powderIndicatio ns:Nasal polyp Compound 2 mg capsule to be added to sinus rinse twice daily. 90 g 3 4 Active Active Problems Problem Noted Date Diagnosed Date HTN (hypertension) 06/17/2024 Asthma 06/17/2024 LILO (obstructive sleep apnea) 06/17/2024 History of migraine headaches 06/17/2024 Nephrolithiasis 06/17/2024 Gastroesophageal reflux disease 06/17/2024 Hiatal hernia 06/17/2024 Hyperthyroidism 06/17/2024 Deviated nasal septum 04/07/2024 Chronic ethmoidal sinusitis 04/07/2024 Encounters Date Type Department Care Team Description 12/08/2024 9:30 AM EDT Office Visit [facility] [address] [place] [address] Toni Bansal MD Chronic ethmoidal sinusitis (Primary Dx); Decreased sense of smell; Nasal polyp 12/08/2024 Travel from Last 3 Months Social History Tobacco Use Types Packs/Day Years Used Date Smoking Tobacco: Former Cigarettes Smokeless Tobacco: Never Tobacco Cessation:Counseling Given: Not Answered Alcohol Use Standard Drinks/Week Comments Not Currently 0 (1 standard drink = 0.6 oz pur e alcohol) occasional PHQ-2 Answer Date Recorded Patient Health Questionnaire-2 Score 0 12/08/2024 Comments No Sex and Gender Information Value Date Recorded Sex Assigned at Female 06/18/2024 7:06 AM EDT Legal Sex Female 1:41 PM EST Gender Identity Female 06/18/2024 7:06 AM EDT Sexual Orientation Straight 06/18/2024 7: 07 AM EDT Last Filed Vital Signs Vital Sign Reading Time Taken Comments Blood Pressure 112/56 06/17/2024 1:30 PM EDT Pulse 86 06/17/2024 1:14 PM EDT Temperature 36.4 C (97.5 F) 06/17/2024 1:30 PM EDT Respiratory Rate 16 06/17/2024 1:30 PM EDT Oxygen Saturation 96% 06/17/2024 1:30 PM EDT Inhaled Oxygen Concentration - - Weight 87.5 kg (192 lb 12.8 oz) 12/08/2024 9:50 AM EDT Height 165.1 cm (5' 5 ) 12/08/2024 9:50 AM EDT Body Mass Index 32.08 12/08/2024 9:50 AM EDT Plan of Treatment Upcoming Encounters Date Type Department Care Team (Late st Contact Info) Description 06/08/2025 9:15 AM EDT Office Visit [facility] [address] [place] [address] Toni Bansal MD [address] [facility] [address] [place] [address] Health Maintenance Due Date Last Done Comments CT Colonography 1962 FIT-DNA (Cologuard) 1960 FIT 1960 HIV Screening 1960 Lipid Panel 1960 Sigmoidoscopy 1960 TSH Level 1962 Yearly Adult Physical 1962 MMR Vaccines (1 of 1 - Standard series) 1963 Diabetes Screening 1980 Hepatitis C Screening 1980 Cervical Cancer Screening 1983 HPV/Cotest 1983 Pap Smear 1983 COVID-19 Vaccine ( season) 2024 09/27/2021, 12/08/2020, 11/08/2020 Bone Density Scan 05/29/2025 05/29/2023 Mammogram 12/02/2025 12/02/2024, 11/14, 11/05/2023, Additional history exists DTaP/Tdap/Td Vaccines (3 - Td or Tdap) 09/13/2034 09/13/2024, 04/08/2014 Colonoscopy 10/20/2034 10/20/2024, 10/14/2019 Colorectal Cancer Screening 10/20/2034 Pneumococcal Vaccine Completed 04/11/2023 Zoster Vaccines Completed 08/06/2023, 04/11/2023 Influenza Vaccine Completed 06/24/2024, , 06/27/2022, Additional history exists RSV High Risk: (Elderly (60+) or Population) Completed 09/13/2024 HIB Vaccines Aged Out No longer eligi ble based on patient's age to complete this topic HPV Vaccines Aged Out No longer eligi ble based on patient's age to complete this topic Hepatitis A Vaccines Aged Out No long er eligible based on patient's age to complete this topic Hepatitis B Vaccines Aged Out No long er eligible based on patient's age to complete this topic IPV Vaccines Aged Out No longer eligi ble based on patient's age to complete this topic Meningococcal Vaccine Aged Out No michelle dennys eligible based on patient's age to complete this topic Rotavirus Vaccines Aged Out No longer eligible based on patient's age to complete this topic Medical Devices Implanted Type Area Lumber Bearer Device Identifier Shelf Expiration Date Model / Serial / Lot Implant, Propel Contour Sinus - [id number] Implanted:Qty: 1 on 06/17/2024 by Toni Bansal MD at [facility] (formerly [facility]3] ENT Implant Right: Nose INTERSECT ENT [id number] 09/16/2025 [id number] / / [id number] Implant, Propel Contour Sinus - [id number] Implanted:Qty: 1 on 06/17/2024 by Toni Bansal MD at [facility] (formerly [facility]3] ENT Implant Left: Nose INTERSECT ENT [id number] 12/01/2025 [id number] / / [id number] Insurance GENERIC COMMERCIAL GENERIC COMMERCIAL
--- OUTSIDE RECORDS SUMMARY | 2025-03-04 07:30 | XMS_ITS | Encounter Summary ---
Author Organization [facility] Address [facility] [id number] [address] [place] [address] Care Team Providers Care Forest Nursery Supervisor Name Role Phone Liliana Valles Primary Care Provider + Encounter Details Date Type Department Care Team (Late st Contact Info) Description 11/15/2024 Telephone [facility] Internal Medicine - Family Medicine [address] [place] [address] Robyn Evans CMA Social History Tobacco Use [...] often do you attend chur ch or spiritism services? More than 4 times per year [...] Answer Date Recorded Total Score 0 06/24/2024 [facility] of Occupat ional Health - Occupational Stress [...] Recorded Do you need help finding a [facility] career center and/or a training program? No [...] encounter Miscellaneous Notes * Telephone Encounter - Robyn Evans CMA - 11/15/2024 11:39 AM EST Patient needs an order sent to [facility] for her Mammogram. documented in this encounter Plan of Treatment Upcoming Encounters Date Type Department Care Team (Late st Contact Info) Description 03/08/2025 12:30 PM EDT Office Visit [facility] [address] [place] [address] Annetta Trujillo MD [address] [place] [address] 05/12/2025 4:00 PM EDT Office Visit [facility] - Family Medicine [address] [place] [address] Liliana Valles APRN-PHARMACIST APPRENTICE [address] [place] [address] documented as of this encounter Visit Diagnoses Not on filedocumented in this encounter Additional Health Concerns Infection Onset Date Last Indicated Resolved Time Respiratory Rule-Out 01/17/2025 01/17/2025 025 11:50 AM EDT Assessment Noted Time PHQ-9 Depression Total Score: 0 06/24/20 24 1:44 PM EDT documented as of this encounter Care Teams Forest Nursery Supervisor Relationship Specialty Start Date End Date Liliana Valles APRN-PHARMACIST APPRENTICE [address] [place] [address] PCP - General Family Medicine 01/17/25 documented as of this encounter
--- OUTSIDE RECORDS SUMMARY | 2025-03-04 07:30 | XMS_ITS | Encounter Summary ---
Author Organization [facility] Center[facility] s tem Address [facility] [id number] [address] [place] [address] Care Team Providers Care Quarrying Manager Name Role Phone Liliana Valles APRN-ALEKSANDRA Primary Care Provider + Encounter Details Date Type Department Care Team (Late st Contact Info) Description 08/09/2024 [facility]phone [facility] Internal [facility] - Family Medicine [address] [place] [address] Yudelka Crump CMA Social History Tobacco Use [...] often do you attend chur ch or congregational services? More than 4 times per year 10/23/2022 Do you belong to any clubs o r organizations such as protestant groups, unions, fraternal [...] Answer Date Recorded Total Score 0 06/24/2024 [facility] of Occupat ional Health - Occupational [...] Recorded Do you need help finding a [facility] and/or a training program? [...] encounter Miscellaneous Notes * Telephone Encounter - Yudelka Crump CMA - 08/09/2024 2:18 PM EST Liza called from [facility] has cancelled her Colonoscopy. Her insurance will not pay for this. * Telephone Encounter - Charan Plata DO - 08/09/2024 2:18 PM EST Message noted. Who talked to insurance? The patient? Pre op testing? Did we get a notification from the insurance company, because they normally send a denial letter. This smells a bit fishy * Telephone Encounter - Yudelka Crump CMA - 08/09/2024 2:18 PM EST I called pt and she states No she did not talk to Ins. She just know it say to be done in 5 yrs. I got her scheduled for Oct at 0900. Surgery notified and pt already has everything she needs. * Telephone Encounter - Robyn Evans CMA - 08/09/2024 2:18 PM EST This patient is scheduled for Oct 20 at 9:00am. * Telephone Encounter - Yudelka Crump CMA - 08/09/2024 2:18 PM EST Oct 19 at 0900 * Telephone Encounter - Charan Plata DO - 08/09/2024 2:18 PM EST Message noted. H&P done. Rx Suprep sent to pharmacy documented in this encounter Plan of Treatment Upcoming Encounters Date Type Department Care Team (Late st Contact Info) Description 03/08/2025 12:30 PM EDT Office Visit [facility] Pul[facility]/Sleep Medicine [address] [address] Annetta Trujillo MD [address] [facility] [address] [place] [address] 05/12/2025 4:00 PM EDT Office Visit [facility] Internal Medicine - Family Medicine [address] [place] [address] Liliana Valles, COLD SAW OPERATOR-SOLUTION MAKE UP OPERATOR [address] [place] [address] documented as of this encounter Visit Diagnoses Not on filedocumented in this encounter Additional Health Concerns Infection Onset Date Last Indicated Resolved Time Respiratory Rule-Out 01/17/2025 01/17/2025 025 11:50 AM EDT Assessment Noted Time PHQ-9 Depression Total Score: 0 06/24/20 24 1:44 PM EDT documented as of this encounter Care Teams Quarrying Manager Relationship Specialty Start Date End Date Liliana Valles, COLD SAW OPERATOR-SOLUTION MAKE UP OPERATOR [address] [place] [address] PCP - General Family Medicine 01/17/25 documented as of this encounter
--- OUTSIDE RECORDS SUMMARY | 2025-03-04 07:30 | XMS_ITS | Encounter Summary ---
Author Organization [employer] s tem Address [facility] [place]-[id number] [address] [place] [address] Care Team Providers Care Account Processor Name Role Phone Liliana Valles Renetta SAMSON Primary Care Provider + Encounter Details Date Type Department Care Team (Late Contact Info) Description 09/20/2022 Orders Only [facility] Internal Medicine - Family Medicine [address] [place] [address] External, Scanning Provider Social History [...] Pulmonary/Sleep Medicine [address] [address] Annetta Trujillo MD [address] [facility] [address] [place] [address] 05/12/2025 4:00 PM EDT Office Visit [facility] Internal Medicine - Family Medicine [address] [place] [address] Liliana Valles APRN-SCOOPER [address] [place] [address] documented as of this encounter Visit Diagnoses Not on filedocumented in this encounter Additional Health Concerns Infection Onset Date Last Indicated Resolved Time Respiratory Rule-Out 01/17/2025 01/17/2025 025 11:50 AM EDT documented as of this encounter Care Teams Account Processor Relationship Specialty Start Date End Date Liliana Valles APRN-SCOOPER [address] [place] [address] PCP - General Family Medicine 01/17/25 documented as of this encounter
--- OUTSIDE RECORDS SUMMARY | 2025-03-04 07:30 | XMS_ITS | Encounter Summary ---
Author Organization [facility] Sys [facility] Address [facility] [place][id number] [address] [place] [address] Care Team Providers Care Chemical Equipment Repairer Name Role Phone Liliana Valles APRN-ALEKSANDRA Primary Care Provider + Encounter Details Date Type Department Care Team (Late st Contact Info) Description 11/20/2022 Orders Only [facility] Internal Medicine - Family Medicine [address] [place] [address] Renetta Obregon CMA Hypertension, unspecified type Social History Tobacco Use Types Packs/Day Years [...] often do you attend chur ch or orthodox services? More than 4 times per year 10/23/2022 Do you belong to any clubs o r organizations such as evangelical groups, unions, fraternal or athletic groups, or [...] Answer Date Recorded Total Score 0 10/23/2022 [facility] of Occupat ional Health - Occupational Stress [...] Office Visit [facility] Pulmonary/Sleep Medicine [address] [place] [address] Annetta Trujillo MD [address] [facility] [address] [facility] [place] [address] 05/12/2025 4:00 PM EDT Office Visit [facility] Internal Medicine - Family Medicine [address] [place] [address] Liliana Valles, CONSUMER LOAN SPECIALIST-METAL TANK BUILDER [address] [place] [address] documented as of this encounter Procedures Procedure Name Priority Date/Time Associated Diagnosis Comments COMPREHENSIVE METABOLIC PANEL Routine 11/19/2022 Hypertension, unspecified type documented in this encounter Results * (ABNORMAL) Comprehensive metabolic panel (11/19/2022) External Albumin 3.8 3.3 - 5.0 MAN UALLY TRANSCRIBED RESULTS External Alt Sgpt 30 6 - 46 MANUALLY TRANSCRIBED RESULTS External Anion Gap 1.1 1.1 - 2.2 MANUALLY TRANSCRIBED RESULTS External Ast 34 5 - 43 MANUALL Y TRANSCRIBED RESULTS External Blood Urea Nitrogen Bun 13 5 - 21 MANUALLY TRANSCRIBED RESULTS External Calcium Ca 8.8(A) 8.9 - 11.1 MANUALLY TRANSCRIBED RESULTS External Chloride 102 101 - 111 MANUALLY TRANSCRIBED RESULTS External Co2 / Carbon Dioxide 26 21 - 31 MANUALLY TRANSCRIBED RESULTS External Creatinine 0.7 0.5 - 1.3 MANUALLY TRANSCRIBED RESULTS External Gfr Amer 60 >=60 MANUALLY TRANSCRIBED RESULTS External Gfr Non Amer 60 >=60 MANUALLY TRANSCRIBED RESULTS External Alkaline Phosphatase 109(A) 21 - 98 MANUALLY TRANSCRIBED RESULTS External Glucose Fasting Or Random (Fbs) 114 55 - 199 MANUALLY TRANSCRIBED RESULTS External Potassium K 4.3 3.5 - 5.3 MANUALLY TRANSCRIBED RESULTS External Sodium Na 136 135 - 145 MANUALLY TRANSCRIBED RESULTS Total Bilirubin 0.7 0 - 1.1 MANU ALLY TRANSCRIBED RESULTS External Total Protein 7.3 6 - 7.8 MANUALLY TRANSCRIBED RESULTS Blood 11/19/2022 Liliana SAMSON LAB BLOOD ORDERABLES Howard nu Result - Final MANUALLY TRANSCRIBED RESULTS documented in this encounter Visit Diagnoses Diagnosis Hypertension, unspecified type documented in this encounter Additional Health Concerns Infection Onset Date Last Indicated Resolved Time Respiratory Rule-Out 01/17/2025 01/17/2025 025 11:50 AM EDT Assessment Noted Time PHQ-9 Depression Total Score: 0 10/23/19 23 9:11 PM EST documented as of this encounter Care Teams Chemical Equipment Repairer Relationship Specialty Start Date End Date Liliana Valles APRN-CNP [address] [facility] [place] [address] PCP - General Family Medicine 01/17/25 documented as of this encounter
--- OUTSIDE RECORDS SUMMARY | 2025-03-04 07:30 | XMS_ITS | Encounter Summary ---
Author Organization [facility] Address [facility] [place]-[id number] [address] [place] [address] Care Team Providers Care Grinder Lap Name Role Phone Liliana Valles APRN-ALEKSANDRA Primary Care Provider + Encounter Details Date Type Department Care Team (Late st Contact Info) Description 05/10/2024 [facility]phone [facility] [address] [place] [address] Robyn Evans CMA Social History Tobacco Use [...] often do you attend chur ch or islam services? More than 4 times per year 10/23/2022 Do you belong to any clubs o r organizations such as spiritism groups, unions, fraternal or athletic groups, or [...] Answer Date Recorded Total Score 0 04/01/2024 [facility] of Occupat ional Health - [...] Telephone Encounter - Robyn Evans CMA - 05/10/2024 9:15 AM EDT ----- Message from MALI Aguilar sent at 05/06/2024 2:02 PM EDT ----- Regarding: colonoscopy Pt would like colonoscopy set up with [facility] for screening and h/o polyps, last one was almost 5 yrs ago * Telephone Encounter - Robyn Evans CMA - 05/10/2024 9:15 AM EDT Sent her a Chronicity message documented in this encounter Plan of Treatment Upcoming Encounters Date Type Department Care Team (Late st Contact Info) Description 03/08/2025 12:30 PM EDT Office Visit [facility] Pulmonary/Sleep Medicine [address] [facility] [place] [address] Annetta Trujillo MD [address] [facility] [address] [place], [place] [id number] 05/12/2025 4:00 PM EDT Office Visit [facility] Internal Medicine - Family Medicine [address] [place] [address] Liliana Valles APRN-CNP [address] [place] [address] documented as of this encounter Visit Diagnoses Not on filedocumented in this encounter Additional Health Concerns Infection Onset Date Last Indicated Resolved Time Respiratory Rule-Out 01/17/2025 01/17/2025 025 11:50 AM EDT Assessment Noted Time PHQ-9 Depression Total Score: 0 04/01/20 24 11:41 AM EDT documented as of this encounter Care Teams Grinder Lap Relationship Specialty Start Date End Date Liliana Valles APRN-CARD DEALER [address] [place] [address] PCP - General Family Medicine 01/17/25 documented as of this encounter
--- OUTSIDE RECORDS SUMMARY | 2025-03-04 07:30 | XMS_ITS | Encounter Summary ---
Author Organization [facility] Sys tem Address [facility] [id number] [address] [place] [address] Care Team Providers Care Consulting It Architect Name Role Phone Liliana Valles Primary Care Provider + Encounter Details Date Type Department Care Team (Late st Contact Info) Description 02/06/2024 Orders Only [facility] Internal Medicine - Family Medicine [address] [place] [address] External, Scanning Provider Social History Tobacco Use [...] week 10/23/2022 How often do you attend [facility] or yazidi services? More than 4 times per year [...] Answer Date Recorded Total Score 0 07/24/2023 [facility] of Occupat ional [facility] - Occupational Stress Questionnaire Answer Date [...] Physicians Pulmonary/Sleep Medicine [address] [place] [address] Annetta Trujillo MD [address] [facility] [address] [place] [address] 05/12/2025 4:00 PM EDT Office Visit [facility] Internal Medicine - Family Medicine [address] [place] [address] Liliana Valles, MATTRESS FINISHER-JAVA WEB SERVICES DEVELOPER [address] [place] [address] documented as of this encounter Visit Diagnoses Not on filedocumented in this encounter Additional Health Concerns Infection Onset Date Last Indicated Resolved Time Respiratory Rule-Out 01/17/2025 01/17/2025 025 11:50 AM EDT Assessment Noted Time PHQ-9 Depression Total Score: 0 07/24/20 23 10:25 AM EST documented as of this encounter Care Teams Consulting It Architect Relationship Specialty Start Date End Date Liliana Valles, MATTRESS FINISHER-JAVA WEB SERVICES DEVELOPER [address] [place] [address] PCP - General Family Medicine 01/17/25 documented as of this encounter
--- OUTSIDE RECORDS SUMMARY | 2025-03-04 07:30 | XMS_ITS | Encounter Summary ---
Author Organization [facility] Address [address] [place] [address] Care Team Providers Care Security Coordinator Name Role Phone Gera Teresa MD Primary Care Provider [phone] Encounter Details Date Type Department Care Team (Late st Contact Info) Description 03/02/2025 Bamboo flowsheet [facility] [address] [place] [address] Manju Solo MD [address] [place] [address] Social History Tobacco Use Types Packs/Day Years [...] EST Office Visit [facility] [address] [place] [address] Manju Solo MD [address] [place] [address] documented as of this encounter Visit Diagnoses Not on filedocumented in this encounter Care Teams Security Coordinator Relationship Specialty Start Date End Date Gera Teresa MD PCP - General Family Medicine 12/16/23 documented as of this encounter
--- OUTSIDE RECORDS SUMMARY | 2025-03-04 07:30 | XMS_ITS | Encounter Summary ---
Author Organization [facility] Address [facility] [place][id number] [address] [place] [address] Care Team Providers Care Analytics Director Name Role Phone Liliana Valles Primary Care Provider + Encounter Details Date Type Department Care Team (Late st Contact Info) Description 10/02/2022 [facility]phone [facility] [address] [place] [address] Selena Mulligan MA Social History Tobacco Use Types Packs/Day Years [...] encounter Miscellaneous Notes * Telephone Encounter - Selena Mulligan MA - 10/02/2022 10:33 AM EST Pt called and would like order for mammogram, she is due after 10/30. * Telephone Encounter - MALI Fournier - 10/02/2022 10:33 AM EST To [facility] facility? * Telephone Encounter - Selena Mulligan MA - 10/02/2022 10:33 AM EST Yes, she will be going to [facility], they sent her reminder, she is due and needs new order documented in this encounter Plan of Treatment Upcoming Encounters Date Type Department Care Team (Late st Contact Info) Description 03/08/2025 12:30 PM EDT Office Visit [facility] Pulmonary/Sleep Medicine [address] [place] [address] Annetta Trujillo MD [address] [facility] [address] [place] [address] 05/12/2025 4:00 PM EDT Office Visit [facility] Internal Medicine - Family Medicine [address] [place] [address] Liliana Valles, STONE REPAIRER-LIVESTOCK FEEDER [address] [facility] [place] [address] documented as of this encounter Visit Diagnoses Not on filedocumented in this encounter Additional Health Concerns Infection Onset Date Last Indicated Resolved Time Respiratory Rule-Out 01/17/2025 01/17/2025 025 11:50 AM EDT documented as of this encounter Care Teams Analytics Director Relationship Specialty Start Date End Date Liliana Valles, STONE REPAIRER-LIVESTOCK FEEDER [address] [place] [address] PCP - General Family Medicine 01/17/25 documented as of this encounter
--- OUTSIDE RECORDS SUMMARY | 2025-03-04 07:30 | XMS_ITS | Encounter Summary ---
Author Organization [facility] Address [facility][id number] [address] [place] [address] Care Team Providers Care Care Asst Name Role Phone Liliana Valles APRN-ALEKSANDRA Primary Care Provider + Encounter Details Date Type Department Care Team (Late st Contact Info) Description 05/12/2024 [facility]phone [facility] [address] [place] [address] Robyn Evans CMA Social History Tobacco Use [...] often do you attend chur ch or gnosticism services? More than 4 times per year 10/23/2022 Do you belong to any clubs o r organizations such as rastafari groups, unions, fraternal or athletic groups, or [...] Answer Date Recorded Total Score 0 04/01/2024 [facility] of Occupat ional Health - Occupational [...] Recorded Do you need help finding a [facility] career center and/or a training program? [...] Telephone Encounter - Robyn Evans CMA - 05/12/2024 10:32 AM EDT This patient is scheduled for her Screening Colonoscopy for H/O Polyps on Aug 10 at 9:00am.Please send her [facility]Prep to [facility]. * Telephone Encounter - Charan Plata DO - 05/12/2024 10:32 AM EDT Message noted. H&P done. Rx Suprep sent to pharmacy documented in this encounter Plan of Treatment Upcoming Encounters Date Type Department Care Team (Late st Contact Info) Description 03/08/2025 12:30 PM EDT Office Visit [facility] Pulmonary/Sleep Medicine [address] [place] [address] Annetta Trujillo MD [address] [facility] [address] [place] [address] 05/12/2025 4:00 PM EDT Office Visit [facility] Internal Medicine - Family Medicine [address] [place] [address] Liliana Valles, MUD GRINDER-ELECTRICAL PRODUCTS SALES ENGINEER [address] [place] [address] documented as of this encounter Visit Diagnoses Not on filedocumented in this encounter Additional Health Concerns Infection Onset Date Last Indicated Resolved Time Respiratory Rule-Out 01/17/2025 01/17/2025 025 11:50 AM EDT Assessment Noted Time PHQ-9 Depression Total Score: 0 04/01/20 24 11:41 AM EDT documented as of this encounter Care Teams Care Asst Relationship Specialty Start Date End Date Liliana Valles APRN-ELECTRICAL PRODUCTS SALES ENGINEER [address] [place] [address] PCP - General Family Medicine 01/17/25 documented as of this encounter
--- OUTSIDE RECORDS SUMMARY | 2025-03-04 07:30 | XMS_ITS | Encounter Summary ---
Author Organization [facility] Sys tem Address [facility] [place]-[id number] [address] [place] [address] Care Team Providers Care Node Js Developer Name Role Phone Liliana Valles Primary Care Provider + Encounter Details Date Type Department Care Team (Late st Contact Info) Description 11/19/2023 Orders Only [facility] Internal Medicine - Family Medicine [address] [place] [address] External, Scanning Provider Social History Tobacco Use [...] week 10/23/2022 How often do you attend [facility] or yazidism services? More than 4 times per year 10/23/2022 Do you belong to any clubs o r organizations such as hindu groups, unions, fraternal or athletic groups, or [...] Answer Date Recorded Total Score 0 07/24/2023 [facility] of Occupat ional [facility] - Occupational Stress Questionnaire Answer Date Recorded [...] Office Visit [facility]/Sleep Medicine [address] [place] [address] Annetta Trujillo MD [address] [facility] [address] [place] [address] 05/12/2025 4:00 PM EDT Office Visit [facility] Internal Medicine - Family Medicine [address] [place] [address] Liliana Valles APRN-STAFF REGISTERED NURSE [address] [facility] [place] [address] documented as of this encounter Procedures Procedure Name Priority Date/Time Associated Diagnosis Comments MULTIPLE LABS Routine 11/18/2023 9:20 AM EST documented in this encounter Results * Multiple labs (11/18/2023 9:20 AM EST) us Scanning Provider External [facility] Final Result Performing Organization Address City/State/[facility] Co de Phone Number MANUALLY TRANSCRIBED RESULTS documented in this encounter Visit Diagnoses Not on filedocumented in this encounter Additional Health Concerns Infection Onset Date Last Indicated Resolved Time Respiratory Rule-Out 01/17/2025 01/17/2025 025 11:50 AM EDT Assessment Noted Time PHQ-9 Depression Total Score: 0 07/24/20 23 10:25 AM EST documented as of this encounter Care Teams Node Js Developer Relationship Specialty Start Date End Date Liliana Valles APRN-STAFF REGISTERED NURSE [address] [place] [address] PCP - General Family Medicine 01/17/25 documented as of this encounter
--- OUTSIDE RECORDS SUMMARY | 2025-03-04 07:30 | XMS_ITS | Encounter Summary ---
Author Organization [facility] Sys tem Address [facility] [place]-[id number] [address] [place] [address] Care Team Providers Care Reclamation Kettle Tender Name Role Phone Liliana Valles Primary Care Provider + Encounter Details Date Type Department Care Team (Late st Contact Info) Description 02/11/2024 Orders Only [facility] Internal Medicine - Family Medicine [address] [place] [address] External, Scanning Provider Social History Tobacco Use [...] week 10/23/2022 How often do you attend [facility] or sabianist services? More than 4 times per year 10/23/2022 Do you belong to any clubs o r organizations such as sabianist groups, unions, fraternal or athletic groups, or [...] Answer Date Recorded Total Score 0 07/24/2023 [facility] of Occupat ional [facility] - Occupational Stress Questionnaire Answer Date [...] Physicians Pulmonary/Sleep Medicine [address] [address] Annetta Trujillo MD [address] [facility] [address] [place] [address] 05/12/2025 4:00 PM EDT Office Visit [facility] Medicine - Family Medicine [address] [place] [address] Liliana Valles APRN-FLOWER SHOP MANAGER [address] [facility] [place] [address] documented as of this encounter Procedures Procedure Name Priority Date/Time Associated Diagnosis Comments T3, FREE Routine 02/10/2024 4:55 PM EDT documented in this encounter Results * T3, free (02/10/2024 4:55 PM EDT) us Scanning Provider External LAB BLOOD ORDERABLES Final Result MANUALLY TRANSCRIBED RESULTS documented in this encounter Visit Diagnoses Not on filedocumented in this encounter Additional Health Concerns Infection Onset Date Last Indicated Resolved Time Respiratory Rule-Out 01/17/2025 01/17/2025 025 11:50 AM EDT Assessment Noted Time PHQ-9 Depression Total Score: 0 07/24/20 23 10:25 AM EST documented as of this encounter Care Teams Reclamation Kettle Tender Relationship Specialty Start Date End Date Liliana Valles OUTSIDE MACHINIST-FLOWER SHOP MANAGER [address] [place] [address] PCP - General Family Medicine 01/17/25 documented as of this encounter
--- OUTSIDE RECORDS SUMMARY | 2025-03-04 07:30 | XMS_ITS | Encounter Summary ---
Author Organization [facility] Address [address] [place] [address] Care Team Providers Care Military Communications Specialist Name Role Phone Gera Teresa MD Primary Care Provider [phone] Encounter Details Date Type Department Care Team (Late st Contact Info) Description 02/22/2025 Orders Only [facility] [address] [place] [address] Manju Solo MD [address] [place] [address] Social History Tobacco Use Types [...] Visit [facility] [address] [place] [address] Manju Solo MD [address] [place] [address] documented as of this encounter Procedures Procedure Name Priority Date/Time Associated Diagnosis Comments T3, FREE Routine 02/22/2025 8:10 AM EDT TSH Routine 02/22/2025 8:10 AM EDT T4, FREE Routine 02/22/2025 8:10 AM EDT documented in this encounter Results * TSH (02/22/2025 8:10 AM EDT) Blood Venous blood specimen / Unknown us Manju Solo MD LAB BLOOD ORDERABLES Final Re sult * T3, free (02/22/2025 8:10 AM EDT) Blood Venous blood specimen / Unknown us Manju Solo MD LAB BLOOD ORDERABLES Final Re sult * T4, free (02/22/2025 8:10 AM EDT) Blood Venous blood specimen / Unknown us Manju Solo MD LAB BLOOD ORDERABLES Final Re sult documented in this encounter Visit Diagnoses Not on filedocumented in this encounter Care Teams Military Communications Specialist Relationship Specialty Start Date End Date Gera Teresa MD PCP - General Family Medicine 12/16/23 documented as of this encounter
--- NOTE | 2025-03-04 07:31 | US_ITS ---
The [address] [address] Patient Name: POOJA JOSEPH MRN: [facility]:[id number] date: 1960 Sex: F Assigned Patient Location: [place] Current Patient Location: [place] Accession/Order Number: [id number] Exam Date: 03/04/2025 08:22 Report Date: 03/04/2025 08:28 At the request of: LORA MENDOZA Procedure: US renal bladder BILATERAL RENAL AND BLADDER ULTRASOUND CLINICAL HISTORY: kidney stones N20.0 COMPARISON: CT 02/02/2024 and ultrasound 11/22/2023 Estimation of renal size is approximately 9.8 cm. on the right and 9.3 cm on the left. The medullary pyramids remain diffusely echogenic. There is an echogenic focus with twinkle artifact at the superior pole of the right kidney that may be a discrete stone measuring 1 cm in greatest dimension. No hydronephrosis is identified. No renal mass lesions were imaged. There is no perinephric fluid. The urinary bladder is partially distended with a volume of 174 mL. No contour or intraluminal abnormalities are seen. Bilateral ureteral jets are visualized. The post void bladder residual is 15 mL. US/US renal bladder IMPRESSION: CONTINUED MEDULLARY NEPHROCALCINOSIS WITH A POTENTIAL FOCAL STONE ON THE RIGHT. NO OBSTRUCTIVE UROPATHY. Impression dictated by: Sallie Stovall M.D. 03/04/2025 8:28 AM Dictation Location: [place] [address] Electronically authenticated by: [id number] Y Date: 03/04/2025 08:28
--- NOTE | 2025-03-04 07:31 | XR_ITS ---
The [address] [address] Patient Name: POOJA JOSEPH MRN: [id number] date: 1960 Sex: F Assigned Patient Location: [place] Current Patient Location: [place] Accession/Order Number: [id number] Exam Date: 03/04/2025 08:18 Report Date: 03/04/2025 08:20 At the request of: LORA MENDOZA Procedure: XR abdomen 1V SINGLE VIEW ABDOMEN CLINICAL DATA: Follow-up of kidney stones. COMPARISON: 03/08/2024 Supine view of the abdomen and pelvis was obtained. There is stool within the colon from cecum through the splenic flexure. There is a high riding sigmoid colon containing air and a small amount of stool. No dilated small bowel loops are present. Both kidneys are partially obscured. There is continued visualization of a stone at the upper pole of the left kidney measuring approximately 6 mm in size. No other definite radiopaque stones are noted. No soft tissue masses are seen. XR/XR abdomen 1V IMPRESSION: CONTINUED LEFT NEPHROLITHIASIS. Impression dictated by: Sallie Stovall M.D. 03/04/2025 8:20 AM Dictation Location: [place] [address] Electronically authenticated by: [id number] Y Date: 03/04/2025 08:20
--- OUTSIDE RECORDS SUMMARY | 2025-03-04 07:31 | XMS_ITS | CCD ---
Author Organization [facility] Care Team Providers Care Entry Writer Name Role Phone GERA BURCIAGA Primary Care Physician Kristina Donald Unavailable Maria Isabel Hadley Unavailable Caitlyn Long Unavailable DO Gera Burciaga Primary Care Provider NABEEL Peters Attending Provider DO Gera Burciaga Primary Care Provider [phone] NABEEL Peters Attending Provider MD Caitlyn Long Attending Provider CAYETANO, DR ARVIN Peterson Consulting Unavailable DENISSE OAKLEY Admitting Unavailable DENISSE OAKLEY Attending Unavailable DENISSE OAKLEY Consulting Unavailable HAY ., DR BOOKER Attending Unavailable HAY ., DR BOOKER Admitting Unavailable CAYETANO, DR ARVIN Peterson Consulting Unavailable HAY ., DR BOOKER Consulting Unavailable PATRICA, DR GERA Thakkar Primary Care Unavailable FRAN, BARBARA Consulting Unavailable GIOVANNI PETERSIANA Admitting Unavailable FRAN, BARBARA Attending Unavailable YI ., DR ANDERSON Admitting Unavailable YI ., DR ANDERSON Attending Unavailable YI ., DR ANDERSON Consulting Unavailable PATRICA, DR GERA Thakkar Primary Care Unavailable PATRICA, DR GERA Thakkar Primary Care Unavailable YI ., DR ANDERSON Attending Unavailable YI ., DR ANDERSON Consulting Unavailable YI ., DR ANDERSON Admitting Unavailable [place], DR ADRY Norman Consulting Unavailable MANJU SOLO Attending Unavailable MANJU SOLO F Admitting Unavailable TYLER LINO Attending Unavailable TYLER [...] Admitting Unavailable TONI BANSAL Attending Unavailable Fran [facility], Barbara L Primary Care Provider Thom España DO Attending Provider UnavailThom Brown Attending Unavailable Thom España Admitting Unavailable Unavailable Primary Care Provider UnavailTONI Reyes Attending Unavailable TONI BANSAL Attending Unavailable TONI BANSAL Attending Unavailable TONI BANSAL Attending Unavailable TONI BANSAL Attending Unavailable Fran [facility], Barbara L Primary Care Provider Fran [facility], [facility] Primary Care Provider FRAN, BARBARA L Attending [...] Unavailable FRAN, BARBARA L Primary Care Unavailable CARLYLES, MARIUSZ L Admitting Unavailable MARIUSZ SIMON L Attending Unavailable MARIUSZ SIMON L Referring Unavailable FRAN, BARBARA L Primary Care Unavailable FRAN, BARBARA L Referring Unavailable FRAN, BARBARA L Primary Care Unavailable FRAN, BARBARA L Referring Unavailable FRAN, BARBARA L Primary Care Unavailable FRAN, BARBARA L Referring Unavailable FRAN, BARBARA L Primary Care Unavailable RADHA KAHN Attending Unavailable FRAN, BARBARA L Referring Unavailable FRAN, BARBARA L Primary Care Unavailable FRAN, BARBARA L Primary Care Unavailable ROSALIA STEIN Admitting Unavailable ROSALIA STEIN M Attending Unavailable BLANCA PATRICIA Attending Unavailab tommy Burciaga MD, Gera Thakkar Primary Care Provider Allergies Allergy Classification Reported Allergen(s) Allergy Type Date of Onset Reaction(s) Facility (2 sources) No Known Medication Allergies; Translations: [No Known Medication Allergies] Propensity to adverse reactions (disorder) [facility] Repository Medications Current Medications Medication Drug Class(es) [...] needed for pain, 10 tab(s), Refill(s) 0, [facility] #72, 165, cm, 03/30/22 21:43:00 EDT, Height/Length [...] day(s), # 6 tab(s), Refills(s) 0, Pharmacy: [facility] #[facility], 165, cm, 11/25/22 9:56:00 EDT, Height/Length Dosing, 84.2, kg, 11/25/22 9:56:00 EDT, Weight Dosing Start Date: 11/25/22 Stop Date: 11/30/22 Status: Ordered baclofen 10 mg oral tablet (2 sources) gamma-Aminobutyri c Acid-ergic Agonist Start: 12-30-2024 take 1 tablet [...] day(s), # 21 cap(s), Refills(s) 0, Pharmacy: [facility] #72, 165, cm, 11/25/22 9:56:00 EDT, Height/Length Dosing, 84.2, kg, 11/25/22 9:56:00 EDT, Weight Dosing Start Date: 11/25/22 Stop Date: 12/02/22 Status: Ordered 60 actuat budesonide 0.16 mg/actuat / formoterol fumarate 0.0045 mg/actuat metered dose inhaler (20 sources) Corticosteroid, beta2-Adrenergic Agonist Start: 09-29-2023 take 2 puff(s) by inhalation in the morning budesonide-formote rol (Symbicort) 160-4.5 MCG/ACT inhaler Indications: Asthma, allergic, mild intermittent, uncomplicated (HCC) Inhale 2 puffs in the morning and 2 puffs before bedtime. 1 each 09/29/2023 Active Start: 04-21-2023 take 2 puff(s) by mo uth twice daily SYMBICORT 160-4.5 mcg/actuation inhaler Indications: [...] hour 100 mL/hr, intravenous, Continuous, Starting on Lorraine 06/17/24 at 1245, Recovery (only) cefdinir 300 mg oral capsule (1 source) Cephalosporin Antibacterial Start: 11-25-2022 End: 12-05-2022 take 1 capsule by mouth every twelve hours cefdinir 300 mg Cap 300 mg = 1 cap(s), Oral, q12hr, X 10 day(s), # 20 cap(s), Refills(s) 0, Pharmacy: [facility] #72, 165, cm, 11/25/22 9:56:00 EDT, Height/Length [...] Ordered Start: 10-08-2019 take 1 capsule by [facility] twice daily as needed for constipation Dulcolax [...] bedtime), # 90 tab(s), Refills(s) 1, Pharmacy: [facility] #72, 165, cm, 12/06/20 10:28:00 EDT, Height/Length [...] nasal spray (20 sources) Corticosteroid Start: 10-20-2023 take 1 spray(s) nasal route in the morning Fluticasone Propionate (Xhance) 93 MCG/ACT Exhaler Suspension Indications: Recurrent sinus infections Administer 1 spray into affected nostril(s) in the morning and 1 spray before bedtime. 16 mL 11 10/20/2023 Active Start: 10-20-2023 End: 10-19-2024 take 1 spray(s) [...] Status: Ordered take 1 tablet by ede every twenty-four hours Losartan Potassium 25 MG [...] 0, Thyroid Start Date: 10/08/19 Status: Ordered methIMAzole (Tap azole) 10 MG tablet TAKE 1 TABLET BY MOUTH 3 (THREE) days a week Active take 1 tablet by ede th [...] a day for 6 days Jun, Active mometasone furoate, bulk, 100 % powder [...] Orally bid for 5 day(s) January, Active Rhame 3 (5 sources) Rhame 3 Active Rhame-3 (2 sources) Start: 10-08-2019 Rhame-3 Oral, Daily, Refill(s) 0, Prophylaxis Start Date: 10/08/19 Status: Ordered omeprazole 20 mg delayed release oral capsule (6 sources) Proton Pump Inhibitor Start: 01-28-2024 End: 03-05-2024 take 1 capsule by mouth in the morning omeprazole (PriLOSEC) [address] capsule Take 20 mg by mouth in the morning. 01/28/2024 Active omeprazole 40 mg Cap-DR (4 sources) Start: 01-08-2021 take 1 capsule by mouth twice daily omeprazole 40 mg Cap-DR 40 mg = 1 cap(s), Oral, BID, # 60 cap(s), Refills(s) 2, Pharmacy: [facility] #72, 165, cm, 01/08/21 7:20:00 EDT, Height/Length Dosing, 84.4, kg, 01/08/21 7:20:00 EDT, Weight Dosing Start Date: 01/08/21 Status: Ordered Start: 12-06-2020 take 1 capsule by [facility] once daily omeprazole 40 mg Cap-DR 40 mg = 1 cap(s), Oral, Daily, # 30 cap(s), Refills(s) 2, Pharmacy: [facility] #72, 165, cm, 12/06/20 10:28:00 EDT, Height/Length [...] Ordered Start: 06-02-2021 take 1 tablet by [facility] three times daily as needed for nausea Zofran 4 MG 1 tablet Orally tid prn for 2 days 1 tab ODT 3 times daily as needed nausea 18 May, 2021 Not-Taking oxybutynin chloride 5 mg oral tablet (3 sources) Cholinergic Muscarinic Antagonist Start: 01-24-2022 End: 03-25-2022 take 1 tablet by mouth twice daily oxybutynin 5 mg Tab 5 mg = 1 tab(s), Oral, BID, X 30 day(s), # 60 tab(s), Refills(s) 1, Pharmacy: [facility] #72, 165, cm, 01/24/22 6:15:00 EDT, Height/Length [...] Start: 06-17-2024 take 1 tablet by ede th every four hours as needed 10 mg, oral, Every 4 hours PRN, pain severe (7-10), second line, Starting on Lorraine 06/17/24 at 1224, Recovery (only), When able to take oral medications., If ordered PRN for pain, nurse is permitted to administer this medication for higher pain scores based on patient preference? Yes oxygen (O2) therapy (1 source) Start: 06-17-2024 inhalation, , First dose on Lorraine 06/17/24 at [...] day(s), # 21 tab(s), Refills(s) 0, Pharmacy: [facility] #72, 165, cm, 11/25/22 9:56:00 EDT, Height/Length [...] day(s), # 28 cap(s), Refills(s) 0, Pharmacy: [facility] #72, 165, cm, 03/30/22 21:43:00 EDT, Height/Length [...] procedure, # 2 tab(s), Refills(s) 0, Pharmacy: [facility] #72, 165, cm, 11/25/23 13:47:00 EDT, Height/Length Dosing, 79.3, kg, 11/25/23 13:47:00 EDT, Weight Dosing Start Date: 02/05/24 Status: Ordered Start: 01-25-2022 Cipro 500 mg T ab See Instructions, Take 1 tab day prior to procedure and 1 tab day of procedure after the procedure., # 2 tab(s), Refills(s) 0, Pharmacy: [facility] #72, 165, cm, 01/24/22 6:15:00 EDT, Height/Length Dosing, 87.5, kg, 01/24/22 6:15:00 EDT, W... 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] Onset: 02-28-2022 Episodic Other aftercare (1 source) Other chcf (current) drug therapy; Translations: [OTH INTERMEDIATE 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 THERAPY] Onset: 02-28-2022 Episodic Other [...] (10*3/UL) BY AUTOMATED COUNT 0.0 10*3/uL Normal [facility] Comment on above: Performed By: #### C BCA ####[facility] ([address] [address] VIR BASOPHILS RELATIVE PERCENT BY AUTOMATED COUNT 0.4 % Normal [facility] Comment on above: Performed By: #### C BCA ####[facility] ([address] [address] VIR CELLAVISION DIFFERENTIAL TYPE AUTOMATED DIFFERENTIAL Normal [facility] Comment on above: Performed By: #### C BCA ####[facility] ([address] [address] VIR Eosinophils (Bld) [#/Vol] 0.0 10*3/uL Normal [facility] Comment on above: Performed By: #### C BCA ####[facility] ([address] [address] VIR EOSINOPHILS RELATIVE PERCENT BY AUTOMATED COUNT 0.5 % Normal [facility] Comment on above: Performed By: #### C BCA ####[facility] ([address] [address] VIR Erythrocyte distribution width (RBC) [Ratio] 14.3 % Normal 11.5-15 [facility] Comment on above: Performed By: #### C BCA ####[facility] ([address] [address] VIR Hematocrit (Bld) [Volume fraction] 34.3 % Low 35-47 [facility] Comment on above: Performed By: #### C BCA ####[facility] ([address] [place] [address] VIR Hemoglobin (Bld) [Mass/Vol] 11.7 g/dL Normal 11.7-15.5 [facility] Comment on above: Performed By: #### C BCA ####[facility] ([address] [place] [address] VIR LYMPHOCYTES ABSOLUTE COUNT (10*3/UL) BY AUTOMATED COUNT 1.8 10*3/uL Normal [facility] Comment on above: Performed By: #### C BCA ####[facility] ([address] [place] [address] VIR LYMPHOCYTES RELATIVE PERCENT BY AUTOMATED COUNT 16.8 % Normal [facility] Comment on above: Performed By: #### C BCA ####[facility] ([address] [place] [address] VIR MCH (RBC) [Entitic mass] 30.0 pg Normal 27-34 [facility] Comment on above: Performed By: #### C BCA ####[facility] ([address] [place] [address] VIR MCHC (RBC) [Mass/Vol] 34.2 g/dL Normal 32-36 [facility] Comment on above: Performed By: #### C BCA ####[facility] ([address] [place] [address] VIR MCV (RBC) [Entitic vol] 88 fL Normal 80-100 [facility] Comment on above: Performed By: #### C BCA ####[facility] ([address] [place] [address] VIR MONOCYTES ABSOLUTE COUNT (10*3/UL) BY AUTOMATED COUNT 1.2 10*3/uL Normal [facility] Comment on above: Performed By: #### C BCA ####[facility] ([address] [address] VIR MONOCYTES RELATIVE PERCENT BY AUTOMATED COUNT 10.9 % Normal [facility] Comment on above: Performed By: #### C BCA ####[facility] ([address] [address] VIR NEUTROPHILS ABSOLUTE COUNT BY AUTOMATED COUNT 7.6 10*3/uL Normal [facility] Comment on above: Performed By: #### C BCA ####[facility] ([address] [address] VIR NEUTROPHILS RELATIVE PERCENT BY AUTOMATED COUNT 71.4 % Normal [facility] Comment on above: Performed By: #### C BCA ####[facility] ([address] [address] VIR Platelet mean volume (Bld) [Entitic vol] 8.8 fL Normal 7-12 [facility] Comment on above: Performed By: #### C BCA ####[facility] ([address] [address] VIR Platelets (Bld) [#/Vol] 251 10*3/uL Normal 150-450 [facility] Comment on above: Performed By: #### C BCA ####[facility] ([address] [address] VIR RBC COUNT 3.92 X10E12/L Normal 3.8-5.2 [facility] Comment on above: Performed By: #### C BCA ####[facility] ([address] [address] VIR WBC (Bld) [#/Vol] 10.7 10*3/uL Normal 4-11 [facility] Comment on above: Performed By: #### C BCA ####[facility] ([facility] [address] [address] VIR COMPREHENSIVE METABOLIC PANE Hitesh 01-18-2025 Albumin [Mass/Vol] 2.4 g/dL Low 3.2-5.3 [facility] Comment on above: Performed By: #### C MP ####[facility] ([address] [place] [address] VIR ALP [Catalytic activity/Vol] 98 U/L Normal 39-130 [facility] Comment on above: Performed By: #### C MP ####[facility] ([address] [place] [address] VIR ALT [Catalytic activity/Vol] 30 U/L Normal <=31 [facility] Comment on above: Performed By: #### C MP ####[facility] ([address] [place] [address] VIR Anion gap [Moles/Vol] 5 mmol/L Normal 5-15 [facility] Comment on above: Performed By: #### C MP ####[facility] ([address] [place] [address] VIR AST [Catalytic activity/Vol] 26 U/L Normal <=41 [facility] Comment on above: Performed By: #### C MP ####[facility] ([address] [place] [address] VIR Bilirubin [Mass/Vol] 0.7 mg/dL Normal 0.3-1.2 [facility] Comment on above: Performed By: #### C MP ####[facility] ([address] [place] [address] VIR Calcium [Mass/Vol] 7.4 mg/dL Low 8.5-10.5 [facility] Comment on above: Performed By: #### C MP ####[facility] [place] [address] [place] [address] VIR Chloride [Moles/Vol] 109 mmol/L Normal 98-109 [facility] Comment on above: Performed By: #### C MP ####[facility] ([address] [place] [address] VIR CO2 [Moles/Vol] 25 mmol/L Normal 22-32 [facility] Comment on above: Performed By: #### C MP ####[facility] ([address] [place] [address] VIR Creatinine [Mass/Vol] 0.43 mg/dL Normal 0.40-1.00 [facility] Comment on above: Result Comment: METH OD TRACEABLE TO IDMS STANDARD Performed By: #### C MP ####[facility] ([address] [place] [address] VIR EGFR (CKD-EPI) NON-RACE DEPENDENT >^90 Normal >=60 [facility] Comment on above: Result Comment: eGFR not reported due to non-numeric value for Creatinine. Reported eGFR is based on the CKD-EPI 2021 equation that does not use a race coefficient. Performed By: #### C MP ####[facility] ([address] [place] [address] VIR Glucose [Mass/Vol] 96 mg/dL Normal 65-99 [facility] Comment on above: Performed By: #### C MP ####[facility] ([address] [place] [address] VIR Potassium [Moles/Vol] 3.9 mmol/L Normal 3.5-5.0 [facility] Comment on above: Performed By: #### C MP ####[facility] ([address] [place] [address] VIR Protein [Mass/Vol] 5.9 g/dL Low 6.0-8.0 [facility] Comment on above: Performed By: #### C MP ####[facility] ([facility])[address] [place] [address] [place] [address] VIR Sodium [Moles/Vol] 139 mmol/L Normal 134-146 [facility] Comment on above: Performed By: #### C MP ####[facility] ([address] [place] [address] VIR Urea nitrogen [Mass/Vol] 15 mg/dL Normal 5-27 [facility] Comment on above: Performed By: #### C MP ####[facility] ([address] [address] VIR MAGNESIUMon 01-18-2025 Magnesium [Mass/Vol] 2.2 mg/dL Normal 1.8-2.6 [facility] Comment on above: Performed By: #### M G ####[facility] ([address] [address] VIR BLOOD CULTUREon 01-17-2025 Bacteria identified Cx Nom (Bld) CULTURE RESULTS NO GROWTH 5 DAYS Normal [facility] Comment on above: Order Comment: *SIRS Criteria: (must display 2 without other explanation)-Temperature < 36 or >38-Pulse >90-Resp rate >20-WBC less than 4K or greater than 12KRepeat blood cultures not needed:-To document that a blood culture is a contaminant when 1 of 2 bottles is positive for a common contaminant (already listed in Epic with the culture result)-To document clearance of gram negative bacteremia in patients with suspected urinary source who are improvingSuboptimal volume of blood collected, Results may be affected. Performed By: #### B C ####[facility] ([facility])[address] [address], [place] [address] VIR Bacteria identified Cx Nom (Bld) CULTURE RESULTS NO GROWTH 5 DAYS Normal [facility] Comment on above: Order Comment: *SIRS Criteria: (must display 2 without other explanation)-Temperature < 36 or >38-Pulse >90-Resp rate >20-WBC less than 4K or greater than 12KRepeat blood cultures not needed:-To document that a blood culture is a contaminant when 1 of 2 bottles is positive for a common contaminant (already listed in Epic with the culture result)-To document clearance of gram negative bacteremia in patients with suspected urinary source who are improving Performed By: #### B C ####[facility] ([facility])[address], [place] [address] VIR CBC WITH AUTO DIFFERENTIALon 01-17-2025 BASOPHILS ABSOLUTE COUNT (10*3/UL) BY AUTOMATED COUNT 0.0 10*3/uL Normal [facility] Comment on above: Performed By: #### C BCA #### [facility] ([address] [address] VIR BASOPHILS RELATIVE PERCENT BY AUTOMATED COUNT 0.2 % Normal [facility] Comment on above: Performed By: #### C BCA #### [facility] ([address] [address] VIR CELLAVISION DIFFERENTIAL TYPE AUTOMATED DIFFERENTIAL Normal [facility] Comment on above: Performed By: #### C BCA #### [address] [address] VIR Eosinophils (Bld) [#/Vol] 0.0 10*3/uL Normal [facility] Comment on above: Performed By: #### C BCA #### [facility] ([address] [address] VIR EOSINOPHILS RELATIVE PERCENT BY AUTOMATED COUNT 0.0 % Normal [facility] Comment on above: Performed By: #### C BCA #### [address] [address] VIR Erythrocyte distribution width (RBC) [Ratio] 13.8 % Normal 11.5-15 [facility] Comment on above: Performed By: #### C BCA #### [facility] ([address] [place] [address] VIR Hematocrit (Bld) [Volume fraction] 39.5 % Normal 35-47 [facility] Comment on above: Performed By: #### C BCA #### [facility] ([address] [place] [address] VIR Hemoglobin (Bld) [Mass/Vol] 13.4 g/dL Normal 11.7-15.5 [facility] Comment on above: Performed By: #### C BCA #### [facility] ([address] [place] [address] VIR LYMPHOCYTES ABSOLUTE COUNT (10*3/UL) BY AUTOMATED COUNT 0.7 10*3/uL Normal [facility] Comment on above: Performed By: #### C BCA #### [facility] ([address] [place] [address] VIR LYMPHOCYTES RELATIVE PERCENT BY AUTOMATED COUNT 3.9 % Normal [facility] Comment on above: Performed By: #### C BCA #### [facility] ([address] [address] VIR MCH (RBC) [Entitic mass] 29.5 pg Normal 27-34 [facility] Comment on above: Performed By: #### C BCA #### [facility] ([address] [place] [address] VIR MCHC (RBC) [Mass/Vol] 34.0 g/dL Normal 32-36 [facility] Comment on above: Performed By: #### C BCA #### [facility] ([address] [place] [address] VIR MCV (RBC) [Entitic vol] 87 fL Normal 80-100 [facility] Comment on above: Performed By: #### C BCA #### [facility] ([address] [address] VIR MONOCYTES ABSOLUTE COUNT (10*3/UL) BY AUTOMATED COUNT 1.1 10*3/uL Normal [facility] Comment on above: Performed By: #### C BCA #### [facility] ([address] [address] VIR MONOCYTES RELATIVE PERCENT BY AUTOMATED COUNT 6.7 % Normal [facility] Comment on above: Performed By: #### C BCA #### [facility] ([address] [address] VIR NEUTROPHILS ABSOLUTE COUNT BY AUTOMATED COUNT 15.0 10*3/uL Normal [facility] Comment on above: Performed By: #### C BCA #### [facility] ([address] [address] VIR NEUTROPHILS RELATIVE PERCENT BY AUTOMATED COUNT 89.2 % Normal [facility] Comment on above: Performed By: #### C BCA #### [facility] ([address] [address] VIR Platelet mean volume (Bld) [Entitic vol] 8.2 fL Normal 7-12 [facility] Comment on above: Performed By: #### C BCA #### [facility] ([address] [address] VIR Platelets (Bld) [#/Vol] 289 10*3/uL Normal 150-450 [facility] Comment on above: Performed By: #### C BCA #### [facility] ([address] [address] VIR RBC COUNT 4.56 X10E12/L Normal 3.8-5.2 [facility] Comment on above: Performed By: #### C BCA #### [facility] ([address] [place] [address] VIR WBC (Bld) [#/Vol] 16.9 10*3/uL High 4-11 [facility] Comment on above: Performed By: #### C BCA #### [facility] ([facility]) [address] [place] [address] VIR COMPREHENSIVE METABOLIC PANE Hitesh 01-17-2025 Albumin [Mass/Vol] 3.1 g/dL Low 3.2-5.3 [facility] Comment on above: Performed By: #### C MP #### [facility] ([place] [address] [place] [address] VIR ALP [Catalytic activity/Vol] 122 U/L Normal 39-130 [facility] Comment on above: Performed By: #### C MP #### [facility] ([address] [address] VIR ALT [Catalytic activity/Vol] 37 U/L High <=31 [facility] Comment on above: Performed By: #### C MP #### [facility] ([place] [address] [place] [address] VIR Anion gap [Moles/Vol] 8 mmol/L Normal 5-15 [facility] Comment on above: Performed By: #### C MP #### [facility] ([address] [address] VIR AST [Catalytic activity/Vol] 20 U/L Normal <=41 [facility] Comment on above: Performed By: #### C MP #### [facility] ([place] [address] [place] [address] VIR Bilirubin [Mass/Vol] 0.6 mg/dL Normal 0.3-1.2 [facility] Comment on above: Performed By: #### C MP #### [facility] ([place] [address] [place] [place] [address] VIR Calcium [Mass/Vol] 8.5 mg/dL Normal 8.5-10.5 [facility] Comment on above: Performed By: #### C MP #### [facility] ([address] [place] [address] VIR Chloride [Moles/Vol] 106 mmol/L Normal 98-109 [facility] Comment on above: Performed By: #### C MP #### [facility] ([address] [place] [address] VIR CO2 [Moles/Vol] 25 mmol/L Normal 22-32 [facility] Comment on above: Performed By: #### C MP #### [facility] ([address] [place] [address] VIR Creatinine [Mass/Vol] 0.52 mg/dL Normal 0.40-1.00 [facility] Comment on above: Result Comment: METH OD TRACEABLE TO IDMS STANDARD Performed By: #### C MP #### [facility] ([address] [place] [address] VIR EGFR (CKD-EPI) NON-RACE DEPENDENT >^90 Normal >=60 [facility] Comment on above: Result Comment: eGFR not reported due to non-numeric value for Creatinine. Reported eGFR is based on the CKD-EPI 2021 equation that does not use a race coefficient. Performed By: #### C MP #### [facility] ([address] [place] [address] VIR Glucose [Mass/Vol] 125 mg/dL High 65-99 [facility] Comment on above: Performed By: #### C MP #### [facility] ([address] [place] [address] VIR Potassium [Moles/Vol] 3.3 mmol/L Low 3.5-5.0 [facility] Comment on above: Performed By: #### C MP #### [facility] ([address] [place] [address] VIR Protein [Mass/Vol] 7.4 g/dL Normal 6.0-8.0 [facility] Comment on above: Performed By: #### C MP #### [facility] ([address] [place] [address] VIR Sodium [Moles/Vol] 139 mmol/L Normal 134-146 [facility] Comment on above: Performed By: #### C MP #### [facility] ([address] [place] [address] VIR Urea nitrogen [Mass/Vol] 23 mg/dL Normal 5-27 [facility] Comment on above: Performed By: #### C MP #### [facility] ([address] [place] [address] ABDOMEN AND PELVIS W CONT [...] Luna MD on 01/17/2025 11:39 AM Normal [facility] LACTATE W/ REFLEXon 01-18-20 25 LACTATE W/REFLEX 1.2 mmol/L Normal 0.4-2.0 [facility] Comment on above: Order Comment: Resul t did not trigger repeat Lactate, re-order if needed. Performed By: #### L ACTS #### [facility] ([address] [place] [address] VIR LIPASEon 01-17-2025 Lipase [Catalytic activity/Vol] 20 U/L Normal 17-40 [facility] Comment on above: Performed By: #### L IPA #### [facility] ([address] [place] [address] VIR MAGNESIUMon 01-17-2025 Magnesium [Mass/Vol] 2.2 mg/dL Normal 1.8-2.6 [facility] Comment on above: Performed By: #### M G #### [facility] ([address] [place] [address] VIR POTASSIUMon 01-17-2025 Potassium [Moles/Vol] 3.3 mmol/L Low 3.5-5.0 [facility] Comment on above: Performed By: #### K ####[address] [place] [address] VIR PROCALCITONINon 01-17-2025 PROCALCITONIN 0.81 ng/mL High <0.05 [facility] Comment on above: Order Comment: <0.50 ng/mL - Low risk of severe sepsis and/or septic shock.<2.00 ng/mL - Recommend retesting within 6-24 hours.>2.00 ng/mL - High risk of sepsis and/or septic shock. Performed By: #### P REEMA ####[address] [place] [address] VIR SARS/FLU A+B/RSV BY NAAT/MOL ECULAR (M4RT COLLECTION TUBE)on 01-17-2025 SARS/FLU A+B/RSV BY NAAT/MOLECULAR (M4RT COLLECTION TUBE) FLU A PCR Negative FLU B PCR Negative RSV BY PCR Negative SARS COV 2 BY PCR Not Detected Normal Not Detected [facility] Comment on above: Order Comment: The [employer] Xpress SARS-CoV-2/Flu/RSV Plus test is a rapid, [...] operators who are performing tests using either [employer] DX or [employer] systems and is limited to laboratories that [...] resolved with specimen repeat.Fact Sheet for Healthcare Providers:https://www.fda.gov/media/719526/downloadFact Sheet for Patients:https://www.fda.gov/media/190261/download Performed By: #### C OVFLR ####[facility] ([facility])[address] [place] [address] VIR TROP I, HIGH SENSITIVITY 1 H OURon 01-17-2025 TROPONIN I, HIGH SENSITIVITY 9 ng/L Normal <16 [facility] Comment on above: Performed By: #### T NIHS1 ####[facility] ([address] [address] VIR TROPONIN I, HIGH SENSITIVITY 0 HOURon 01-17-2025 TROPONIN I, HIGH SENSITIVITY 7 ng/L Normal <16 [facility] Comment on above: Performed By: #### T NIHS0 ####[facility] ([facility])[address] [place] [address] [place] [address] VIR XR CHEST 1 VWon 01-17-2025 XR [...] Stone MD on 01/17/2025 10:50 AM Normal [facility] XR SPINE CERVICAL 3 VWS OR L [...] Panda Alvarenga on 01/01/2025 11:12 PM Normal [facility] XR SPINE THORACIC 3 VWSon XR SPINE [...] Stone MD on 01/01/2025 11:08 AM Normal [facility] Urine Cultureon 12-13-2024 Bacteria identified Cx Nom (U) >100,000 colonies/ml mixed bacterial skin contaminants 2 Days PERFORMED BY: [facility] [address] [place] [address] PATHOLOGIST HOSPICE CARE SALES CONSULTANT VELASQUEZ LEONG M.D. 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 W C machine attendant 12-03-2024 MAMM SCREENING BILATERAL W CAD MAMM SCREENING BILATERAL W CAD YANI JOSEPH 1960 [id number] EXAM: MAMM SCREENING BILATERAL W CAD, 12/02/2024 [...] AM 1 b MAMM 1 YR Normal [facility] Surgical Pathologyon 025 Surgical Pathology Normal [facility] Comment on above: Result Comment: [facility] Consult[facility] in Laboratory Medicine [address] [place] [address] Surgical Pathology Consultation Patient Name:YANI JOSEPH:1960 (Age: 64)Gender:FTaken:10/20/2024Reported:10/24/2024Physician(s):Mariusz Simon MD ([phone])Copy To: Rec. #:[id number]: #[id number] Final Pathologic Diagnosis Rectal polyp - polypectomy: - Hyperplastic polyp Report Electronically Signed Out 10/24/2024Howard Bates MD Interpretation performed at [facility], [address] [place] [address], License number: [id number]. Clinical History Personal history of adenomatous and serrated colon polyps Z86.0101. Gross Description Received in formalin labeled OPAL, rectum is a pale-wiggins delicate soft tissue bit, is a pale-wiggins delicate soft tissue bit, 0.3 cm in greatest dimension. The specimen is filtered and submitted in single cassette. (1,ns,[id number], m8) TB tgb/10/21/2024GR Specimen(s) Received Rectal polyp Fee Codes(s): 1; 68031 Patient Letter FTon 2023 Patient Letter FT Patient Letter [facility] September 13, 2024 YANI JOSEPH [address] [place] [address] : 1960 Dear Yani, This is a reminder that you are due for an appointment with [place] [facility] [place] [facility] [employer] [facility]. Please contact our office at [phone] to schedule an appointment at your earliest convenience. Thank you, [facility] Normal [facility] Surgical pathology studyon 1 Surgical pathology study Pathology report.total SEE COMMENT Surgical Pathology Case: [id number] Authorizing Provider: Toni Bansal MD Collected: 06/17/2024 0917 Ordering Location: [facility] Received: 06/18/2024 0346 OR Pathologist: Emily Mcnulty [...] to 3.0 x 1.3 x 0.4 cm. Micropaleontologist sections are submitted in one cassette following [...] to 3.4 x 3.0 x 1.7 cm. Micropaleontologist sections are submitted in 2 cassettes. LMP Normal [facility] Comment on above: Order Comment: Pre-o p diagnosis: Deviated nasal septum [J34.2] Chronic ethmoidal sinusitis [J32.2] Basic metabolic 2000 panelon 06-04-2024 Anion gap [Moles/Vol] 12 mmol/L 10 - 20 mmol/L [facility] Calcium [Mass/Vol] 8.7 mg/dL 8.6 - 10. 3 mg/dL [facility] Chloride [Moles/Vol] 107 mmol/L 98 - 107 mmol/L [facility] CO2 [Moles/Vol] 28 mmol/L 21 - 32 mmol/L [facility] Creatinine [Mass/Vol] 0.59 mg/dL 0.50 - 1.05 mg/dL [facility] eGFR - PINF [facility] Comment on above: Calculations of soraya mated GFR are performed using the 2020 CKD-EPI Study Refit equation without the race variable for the IDMS-Traceable creatinine methods. https://jasn.asnjournals.org/content//ASN.66231649 88 Glucose [Mass/Vol] 106 mg/dL High 74 - 99 mg/dL [facility] Interpretation and review of laboratory results Abnormal [facility] Potassium [Moles/Vol] 4.7 mmol/L 3.5 - 5.3 mmol/L [facility] Sodium [Moles/Vol] 142 mmol/L 136 - 145 mmol/L [facility] Urea nitrogen [Mass/Vol] 11 mg/dL 6 - 23 mg/dL [facility] Anion gap [Moles/Vol] 12 mmol/L Normal 10-20 [facility] Comment on above: Performed By: #### 2 4321-2 #### CAITLYNIBELIHILLARY SANTOS ([id number]) [facility] ([facility]) [address] [place] [address] Calcium [Mass/Vol] 8.7 mg/dL Normal 8.6-10.3 [facility] Comment on above: Performed By: #### 2 4321-2 #### ANAIBELIHILLARY SANTOS ([id number]) [facility] ([facility]) [address] [place] [address] Chloride [Moles/Vol] 107 mmol/L Normal 98-107 [facility] Comment on above: Performed By: #### 2 4321-2 #### ANAIBELIHILLARY ROCKSERAFIN LUIS MANUEL ([id number]) [facility] ([facility]) [address] [place] [address] CO2 [Moles/Vol] 28 mmol/L Normal 21-32 [facility] Comment on above: Performed By: #### 2 4321-2 #### CAITLYNIBELIHILLARY ROCKSERAFIN LUIS MANUEL ([id number]) [facility] ([facility]) [address] [place] [address] Creatinine [Mass/Vol] 0.59 mg/dL Normal 0.50-1.05 [facility] Comment on above: Performed By: #### 2 4321-2 #### ANAIBELIHILLARY SANTOS ([id number]) [facility] ([facility]) [address] [place] [address] GFR/1.73 sq M.predicted MDRD (S/P/Bld) [Vol rate/Area] mL/min/{1.73_m2} Normal >60 [facility] Comment on above: Result Comment: Calc ulations of estimated GFR are performed using the 2020 CKD-EPI Study Refit equation without the race variable for the IDMS-Traceable creatinine methods. https://jasn.asnjournals.org/content/early/ASN.70519622 88 Performed By: #### 2 4321-2 #### SOFÍA SANTOS ([id number]) [facility] ([facility]) [address] [place] [address] Glucose [Mass/Vol] 106 mg/dL High 74-99 [facility] Comment on above: Performed By: #### 2 4321-2 #### SOFÍA SANTOS ([id number]) [facility] ([facility]) [address] [place] [address] Potassium [Moles/Vol] 4.7 mmol/L Normal 3.5-5.3 [facility] Comment on above: Performed By: #### 2 4321-2 #### SOFÍA SANTOS (67556) [facility] ([facility]) [address] [place] [address] Sodium [Moles/Vol] 142 mmol/L Normal 136-145 [facility] Comment on above: Performed By: #### 2 4321-2 #### SOFÍA SANTOS ([id number]) [facility] ([facility]) [address] [place] [address] Urea nitrogen [Mass/Vol] 11 mg/dL Normal 6-23 [facility] Comment on above: Performed By: #### 2 4321-2 #### SOFÍA SANTOS ([id number]) [facility] ([facility]) [address] [place] [address] CBC panel Auto (Bld)on 06-04 Erythrocyte distribution width (RBC) [Ratio] 13.0 % 11.5 - 14.5 % [facility] Hematocrit (Bld) [Volume fraction] 44.2 % 36.0 - 46.0 % [facility] Hemoglobin (Bld) [Mass/Vol] 14.1 g/dL 12.0 - 16.0 g/dL [facility] Interpretation and review of laboratory results Abnormal [facility] MCH (RBC) [Entitic mass] 29.4 pg 26.0 - 34.0 pg [facility] MCHC (RBC) [Mass/Vol] 31.9 g/dL Low 32.0 - 36.0 g/dL [facility] MCV (RBC) [Entitic vol] 92 fL 80 - 100 fL [facility] Nucleated RBC/100 WBC (Bld) [Ratio] 0.0 % [facility] Platelets (Bld) [#/Vol] 328 10*3/uL [facility] RBC (Bld) [#/Vol] 4.79 10*6/uL [facility] WBC (Bld) [#/Vol] 6.9 10*3/uL [facility] Erythrocyte distribution width (RBC) [Ratio] 13.0 % Normal 11.5-14.5 [facility] Comment on above: Performed By: #### 5 8410-2 #### SOFÍA SANTOS ([id number]) [facility] ([facility]) [address] [place] [address] Hematocrit (Bld) [Volume fraction] 44.2 % Normal 36.0-46.0 [facility] Comment on above: Performed By: #### 5 8410-2 #### SOFÍA SANTOS ([id number]) [facility] ([facility]) [address] [place] [address] Hemoglobin (Bld) [Mass/Vol] 14.1 g/dL Normal 12.0-16.0 [facility] Comment on above: Performed By: #### 5 8410-2 #### SOFÍA SANTOS ([id number]) [facility] ([facility]) [address] [place] [address] MCH (RBC) [Entitic mass] 29.4 pg Normal 26.0-34.0 [facility] Comment on above: Performed By: #### 5 8410-2 #### SOFÍA SANTOS ([id number]) [facility] ([facility]) [address] [place] [address] MCHC (RBC) [Mass/Vol] 31.9 g/dL Low 32.0-36.0 [facility] Comment on above: Performed By: #### 5 8410-2 #### SOFÍA SANTOS ([id number]) [facility] ([facility]) [address] [place] [address] MCV (RBC) [Entitic vol] 92 fL Normal 80-100 [facility] Comment on above: Performed By: #### 5 8410-2 #### SOFÍA SANTOS ([id number]) [facility] ([facility]) [address] [place] [address] Nucleated RBC/100 WBC (Bld) [Ratio] 0.0 /100 WBCs Normal 0.0-0.0 [facility] Comment on above: Performed By: #### 5 8410-2 #### SOFÍA SANTOS ([id number]) [facility] ([facility]) [address] [place] [address] Platelets (Bld) [#/Vol] 328 x10*3/uL Normal 150-450 [facility] Comment on above: Performed By: #### 5 8410-2 #### SOFÍA SANTOS ([id number]) [facility] ([facility]) [address] [place] [address] RBC (Bld) [#/Vol] 4.79 x10*6/uL Normal 4.00-5.20 [facility] Comment on above: Performed By: #### 5 8410-2 #### SOFÍA SANTOS ([id number]) [facility] ([facility]) [address] [place] [address] WBC (Bld) [#/Vol] 6.9 x10*3/uL Normal 4.4-11.3 [facility] Comment on above: Performed By: #### 5 8410-2 #### SOFÍA SANTOS ([id number]) [facility] ([facility]) [address] [place] [address] COMPREHENSIVE METABOLIC PANE Hitesh 05-06-2024 Albumin [Mass/Vol] 4.2 g/dL Normal 3.2-5.3 [facility] Comment on above: Performed By: #### Morena TORRES, 94681-9 #### [facility] ([id number]) [address] [place] [address] ALP [Catalytic activity/Vol] 97 U/L Normal 39-130 [facility] Comment on above: Performed By: #### Morena TORRES, 54203-9 #### [facility] ([id number]) [address] [place] [address] ALT [Catalytic activity/Vol] 29 U/L Normal 0-31 [facility] Comment on above: Performed By: #### Morena TORRES, 52029-9 #### [facility] ([id number]) [address] [place] [address] Anion gap [Moles/Vol] 10 mmol/L Normal 5-15 [facility] Comment on above: Performed By: #### Morena TORRES, 61026-1 #### [facility] ([id number]) [address] [place] [address] AST [Catalytic activity/Vol] 21 U/L Normal 0-41 [facility] Comment on above: Performed By: #### Morena TORRES, 83188-3 #### [facility] ([id number]) [address] [place] [address] Bilirubin [Mass/Vol] 0.3 mg/dL Normal 0.3-1.2 [facility] Comment on above: Performed By: #### Morena TORRES, 58222-9 #### [facility] ([id number]) [address] [place] [address] Calcium [Mass/Vol] 10.9 mg/dL High 8.5-10.5 [facility] Comment on above: Performed By: #### Morena TORRES, 13454-1 #### [facility] ([id number]) [address] [place] [address] Chloride [Moles/Vol] 102 mmol/L Normal 98-109 [facility] Comment on above: Performed By: #### Morena TORRES, 93776-2 #### [facility] ([id number]) [address] [place] [address] CO2 [Moles/Vol] 29 mmol/L Normal 22-32 [facility] Comment on above: Performed By: #### Morena TORRES, 48912-0 #### [facility] ([id number]) [address] [place] [address] Creatinine [Mass/Vol] 0.71 mg/dL Normal 0.40-1.00 [facility] Comment on above: Result Comment: METH OD TRACEABLE TO IDMS STANDARD Performed By: #### Morena TORRES, 76858-6 #### [facility] ([id number]) [address] [place] [address] eGFR (CKD-EPI) NON-RACE DEPENDENT >90 Normal >59 [facility] Comment on above: Result Comment: Reported eGFR is based on the CKD-EPI 2020 equation that does not use a race coefficient. Performed By: #### Morena TORRES, 77284-0 #### [facility] ([id number]) [address] [place] [address] Glucose [Mass/Vol] 103 mg/dL High 65-99 [facility] Comment on above: Performed By: #### Morena TORRES, 21998-9 #### [facility] ([id number]) [address] [place] [address] Potassium [Moles/Vol] 3.7 mmol/L Normal 3.5-5.0 [facility] Comment on above: Performed By: #### Morena TORRES, 82790-7 #### [facility] ([id number]) [address] [place] [address] Protein [Mass/Vol] 7.2 g/dL Normal 6.0-8.0 [facility] Comment on above: Performed By: #### Morena TORRES, 65796-7 #### [facility] ([id number]) [address] [place] [address] Sodium [Moles/Vol] 141 mmol/L Normal 134-146 [facility] Comment on above: Performed By: #### Morena TORRES, 01382-7 #### [facility] ([id number]) [address] [place] [address] Urea nitrogen [Mass/Vol] 12 mg/dL Normal 5-27 [facility] Comment on above: Performed By: #### Morena TORRES, 78821-6 #### [facility] ([id number]) [address] [place] [address] Comprehensive metabolic pane hitesh 05-06-2024 Albumin [Mass/Vol] 4.2 g/dL 3.2 - 5.3 g/dL [facility] ALP [Catalytic activity/Vol] 97 U/L 39 - 130 U/L [facility] ALT No additional P-5'-P [Catalytic activity/Vol] 29 U/L 0 - 31 U/L [facility] Anion gap [Moles/Vol] 10 mmol/L 5 - 15 mmol/L [facility] AST [Catalytic activity/Vol] 21 U/L 0 - 41 U/L [facility] Bilirubin [Mass/Vol] 0.3 mg/dL 0.3 - 1.2 mg/dL [facility] Calcium [Mass/Vol] 10.9 mg/dL High 8.5 - 10. 5 mg/dL [facility] Chloride [Moles/Vol] 102 mmol/L 98 - 109 mmol/L [facility] CO2 [Moles/Vol] 29 mmol/L 22 - 32 mmol/L [facility] Creatinine [Mass/Vol] 0.71 mg/dL 0.40 - 1.00 mg/dL [facility] Comment on above: METHOD TRACEABLE TO [facility] STANDARD eGFR (CKD-EPI)non-race dependent - PINF [facility] Comment on above: Reported eGFR is based on the CKD-EPI 2020 equation that does not use a race coefficient. Glucose [Mass/Vol] 103 mg/dL High 65 - 99 mg/dL [facility] Potassium [Moles/Vol] 3.7 mmol/L 3.5 - 5.0 mmol/L [facility] Protein [Mass/Vol] 7.2 g/dL 6.0 - 8.0 g/dL [facility] Sodium [Moles/Vol] 141 mmol/L 134 - 146 mmol/L [facility] Urea nitrogen [Mass/Vol] 12 mg/dL 5 - 27 mg/dL [facility] Lipid 1996 panelon 4 Cholesterol [Mass/Vol] 210 mg/dL High 150 - 200 mg/dL [facility] Cholesterol in HDL [Mass/Vol] 68 mg/dL 39 - PINF mg/dL [facility] Comment on above: HDL <40 mg/dL - High Risk HDL > or = 40mg/dL- Desirable HDL >60 mg/dL - Negative Risk Cholesterol in LDL [Mass/Vol] 118 mg/dL NINF - 130 mg/dL [facility] Comment on above: LDL <100 mg/dL - Desirable LDL >160 mg/dL - High Risk Cholesterol in VLDL [Mass/Vol] 24 mg/dL 0 - 30 mg/dL [facility] Cholesterol.total/C holesterol in HDL [Mass ratio] 3.1 {ratio} 1.0 - 5.0 [facility] Triglyceride [Mass/Vol] 118 mg/dL 27 - 150 mg/dL [facility] Cholesterol [Mass/Vol] 210 mg/dL High 150-200 [facility] [place] Comment on above: Performed By: #### Morena TORRES, 79348-0 #### [facility] ([id number]) [address], [address] [place] [address] Cholesterol in HDL [Mass/Vol] 68 mg/dL Normal >39 [facility] [place] Comment on above: Result Comment: HDL <40 mg/dL - High Risk HDL > or = 40mg/dL- Desirable HDL >60 mg/dL - Negative Risk Performed By: ###[place], [address]-7 #### [facility] ([id number]) [address], [address] [place] [address] Cholesterol in LDL [Mass/Vol] 118 mg/dL Normal <130 [facility] [place] Comment on above: Result Comment: LDL <100 mg/dL - Desirable LDL >160 mg/dL - High Risk Performed By: ###[place], [address]-2 #### [facility] ([id number]) [address], [address] [place] [address] Cholesterol in VLDL [Mass/Vol] 24 mg/dL Normal 0-30 [facility] [place] Comment on above: Performed By: ###[place], [address]-4 #### [facility] ([id number]) [address], [address] [place] [address] CHOLESTEROL:HDL 3.1 Normal 1.0-5.0 [facility] [place] Comment on above: Performed By: #### C MELISSA, 92008-4 #### [facility] ([id number]) [address], [address] [place] [address] Triglyceride [Mass/Vol] 118 mg/dL Normal 27-150 [facility] [place] Comment on above: Performed By: #### C MELISSA, 58000-8 #### [facility] ([id number]) [address], [address] [place] [address] No Panel Informationon 05-06 Interpretation and review of laboratory results Abnormal [facility] Urology Office/Clinic Noteon 03-11-2024 Urology Office/Clinic Note [...] Contact Information KADE RIOS, FLORINDA Pinto, URL [address] [place] [address] Additional Instructions: 1 yr f/u with KUB and NABIL scheduled for 03/08/25 Patient Education Kidney Stones Documentation recorded by the scribmauricio Romero accurately reflects the services(s) I performed and decisions made by me. Authenticated by Florinda Patricia PA-C on 03/11/2024 13:24:31. I, Bianca Romero, personally scribed for REJI Lim on [...] Recorded pneumococ (more content not included)... Normal [facility] Comment on above: Result Comment: Elec tronically Signed By: FLORINDA PATRICIA PA-C\.br\Date and Time Signed: 03/11/24 13:24 EDT\.br\Electronically Co-Signed By: Bianca Romero\.br\Date and Time Co-Signed: 03/11/24 13:12 EDT\.br\Electronically Co-Signed By: Bianca Romero\.br\Date and Time Co-Signed: 03/11/24 13:14 EDT RAD - MISCon 03-08-2024 RAD - MISC [id number] Normal [facility] T3 Freeon 02-11-2024 Free T3 [Mass/Vol] 2.8 pg/mL Invalid Interpretation Code 2.0-4.4 [facility] Comment on above: Result Comment: Perf ormed at: [facility] [address] [id number] PhD Kiki Anderson Performed By: #### 2 [id number] #### [facility] [address] [place] [address] CHEMISTRYOrdered By: SYSTEM SYSTEM on 02-10-2024 Albumin [...] Free T4 [Mass/Vol] 1.05 ng/dL Normal 0.58-1.64 [facility] Comment on above: Performed By: #### 2 [id number] #### [facility] [address] [place] [address] Hep Func Panelon 02-10-2024 Albumin [Mass/Vol] 4.1 g/dL Normal 3.3-5.0 [facility] Comment on above: Performed By: #### 2 [id number] #### [facility] [address] [place] [address] Albumin/Globulin (S) [Mass conc ratio] 1.2 Normal 1.1-2.2 [facility] Comment on above: Performed By: #### 2 [id number] #### [facility] [address] [place] [address] ALP [Catalytic activity/Vol] 77 Int._Unit/L Normal 21-98 [facility] Comment on above: Performed By: #### 2 [id number] #### [facility] [address] [place] [address] ALT No additional P-5'-P [Catalytic activity/Vol] 32 Int._Unit/L Normal 6-46 [facility] Comment on above: Performed By: #### 2 [id number] #### [facility] [address] [place] [address] AST [Catalytic activity/Vol] 18 Int._Unit/L Normal 5-43 [facility] Comment on above: Performed By: #### 2 [id number] #### [facility] [address] [place] [address] Bilirubin [Mass/Vol] 0.5 mg/dL Normal 0.0-1.1 [facility] Comment on above: Performed By: #### 2 [id number] #### [facility] [address] [place] [address] Bilirubin.direct [Mass/Vol] 0.0 mg/dL Normal 0.0-0.4 [facility] Comment on above: Performed By: #### 2 [id number] #### [facility] [address] [place] [address] Bilirubin.indirect [Mass or moles/Vol] 0.5 mg/dL Normal 0.1-0.9 [facility] Comment on above: Performed By: #### 2 [id number] #### [facility] [address] [place] [address] Globulin (S) [Mass/Vol] 3.3 g/dL Normal 1.4-4.0 [facility] Comment on above: Performed By: #### 2 [id number] #### [facility] [address] [place] [address] Protein [Mass/Vol] 7.4 g/dL Normal 6.0-7.8 [facility] Comment on above: Performed By: #### 2 [id number] #### [facility] [address] [place] [address] TSHon 02-10-2024 TSH Qn 1.61 m[IU]/L Normal 0.34-5.60 [facility] Comment on above: Performed By: #### 2 [id number] #### [facility] [address] [place] [address] CHEMISTRYOrdered By: SYSTEM SYSTEM on 11-18-2023 Albumin [...] PM) Normal Negative [facility] UA Auto SS Hurley.plasma/Lith ium.RBC (Bld) [Mass ratio] 0-3 /HPF Normal [...] [facility] UA Auto SS Urobilinogen Qn (U) 1.1040820 {Joni'U}/dL Normal 0.0 - 1.0 EU/dL [facility] UA Auto SS WBC Auto Ql (U) Negative (11/18/23 2:51 PM) Normal Negative [facility] UA Auto SS WBC LM.HPF (Urine sed) [#/Area] 0-5 /HPF Normal 0-5/HPF [facility] UA Auto SS COVID Quick Testingon 2022 Result Negative [employer] Other T4on 12-17-2022 T4 [Mass/Vol] 10.10 ug/dL Normal 4.80-13.90 [facility] Comment on above: Performed By: #### N A, URIC, BUN, CA, CL, CO2, CREA, K #### [facility] [address] [place] [address] Dr. Florence Beltrán TSHon 12-17-2022 TSH 1.776 uIU/mL Normal 0.358-3.74 0 [facility] Comment on above: Performed By: #### N A, URIC, BUN, CA, CL, CO2, CREA, K #### [facility] [address] [address] [address] Florence Beltrán COVID/FLU RT-PCRon SARS-CoV-2 (COVID-19) RNA KAMRYN+probe Ql (Unsp spec) Negative [employer] Other COVID/FLU RT-PCR Negative [employer] Other Quick Strepon 11-20-2022 S. pyogenes Org specific cx Ql (Throat) Negative [employer] Other Quick Strep [employer] Other CHEMISTRYOrdered By: SYSTEM SYSTEM on 11-19-2022 [...] rate/Area] mL/min/1.73 m2 Normal >=59mL/min /1.73 m2 [facility] Chem S GFR/1.73 sq M.predicted among non-blacks MDRD (S/P/Bld) [Vol rate/Area] mL/min/1.73 m2 Normal >=59mL/min /1.73 m2 [facility] Chem S Globulin (S) [Mass/Vol] 3.5 g/dL [...] 13 mg/dL Normal 5 - 21 mg/dL [facility] Remisol Urea nitrogen/Creatinine [Mass ratio] 19 mg/mg Normal 10 - 20 [facility] CITRATE URINE 24HRon 09-14- 022 Citric Acid, U, 24hr 819 mg/24 hr Normal 320-1240 [facility] Comment on above: Result Comment: This test was developed and its performance characteristics determined by [employer]. It has not been cleared or approved by the Food and Drug Administration. Performed By: #### C ITRATU #### [facility] [address] [place] [address] Dr. Florence Beltrán Citric Acid, Urine 482 mg/L Normal Undefined [facility] Comment on above: Performed By: #### C ITRATU #### [facility] [id number] Florence Beltrán MAGNESIUM 24HR URINEon 09-14 Magnesium 24hr Urine 93.5 mg/24 hr Normal 12.0-293.0 [facility] Comment on above: Result Comment: No t otal volume submitted. Unable to calculate 24 hour result. Performed By: #### N A, URIC, BUN, CA, CL, CO2, CREA, K #### [facility] [address] [place], [place] [address] Dr. Florence Beltrán Magnesium UR 5.5 mg/dL Normal Not Estab. [facility] Comment on above: Performed By: #### N A, URIC, BUN, CA, CL, CO2, CREA, K #### [facility] [address] Florence Beltrán OXALATE 24HR URINEon 09-14-2 022 Oxalates, Urine 19 mg/L Normal Undefined [facility] Comment on above: Performed By: #### O [id number] #### [facility] [address] Florence Beltrán Oxalates, Urine 24hr 32 mg/24 hr Critically high [facility] Comment on above: Performed By: #### O X24HR #### [facility] [address] [address] [address] Florence Beltrán PHOSPHORUS 24HR URINEon 08-17 Phosphorus, Urine 41.7 mg/dL Normal Not Estab. [facility] Comment on above: Performed By: #### N A, URIC, BUN, CA, CL, CO2, CREA, K #### [facility] [address] [address] [address] Florence Beltrán Phosphorus, Urine 24hr 709 mg/24 hr Normal 261-1078 [facility] Comment on above: Result Comment: No t otal volume submitted. Unable to calculate 24 hour result. Performed By: #### N A, URIC, BUN, CA, CL, CO2, CREA, K #### [facility] [address] Florence Beltrán URIC ACID 24 HR URINEon 08-17 Uric Acid, Urine 40.6 mg/dL Normal Not Estab. [facility] Comment on above: Performed By: #### N A, URIC, BUN, CA, CL, CO2, CREA, K #### [facility] [address] Florence Beltrán Uric Acid, Urine 24hr 690.2 mg/24 hr Normal 173.7-902. 1 [facility] Comment on above: Result Comment: No t otal volume submitted. Unable to calculate 24 hour result. Performed By: #### N A, URIC, BUN, CA, CL, CO2, CREA, K #### [facility] [address] [place] [address] Dr. Florence Beltrán PTH INTACTon 09-12-2022 PTH, Intact 21 pg/mL Normal 15-65 [facility] Comment on above: Performed By: #### N A, URIC, BUN, CA, CL, CO2, CREA, K #### [facility] [address] [place] [address] Dr. Florence NICEon 09-11-2022 Urea nitrogen [Mass/Vol] 13.0 mg/dL Normal 7.0-18.0 [facility] Comment on above: Performed By: #### N A, URIC, BUN, CA, CL, CO2, CREA, K #### [facility] [address] [place] [address] Dr. Florence Beltrán CALCIUMon 09-11-2022 Calcium [Mass/Vol] 9.0 mg/dL Normal 8.5-10.1 [facility] Comment on above: Performed By: #### N A, URIC, BUN, CA, CL, CO2, CREA, K #### [facility] [address] [place] [address] Dr. Florence Beltrán CALCIUM 24 HR URINEon 2021 CALC, 24 HR UR 180.2 mg/24 hr Normal 100.0-300. 0 [facility] Comment on above: Performed By: #### N A, URIC, BUN, CA, CL, CO2, CREA, K #### [facility] [address] [place] [address] Dr. Florence Beltrán UR CALCIUM 10.6 mg/dL Normal 5.1-21.0 [facility] Comment on above: Performed By: #### N A, URIC, BUN, CA, CL, CO2, CREA, K #### [facility] [address] [place] [address] Dr. Florence Beltrán UR TOT VOL 1700 ml/24 HR Normal [facility] Comment on above: Performed By: #### N A, URIC, BUN, CA, CL, CO2, CREA, K #### [facility] [address] [place] [address] Dr. Florence Beltrán CHLORIDEon 09-11-2022 Chloride [Moles/Vol] 103 mmol/L Normal 98-107 [facility] Comment on above: Performed By: #### N A, URIC, BUN, CA, CL, CO2, CREA, K #### [facility] [address] [place] [address] Dr. Florence Beltrán CO2on 09-11-2022 CO2 [Moles/Vol] 28.4 mmol/L Normal 21.0-32.0 [facility] Comment on above: Performed By: #### N A, URIC, BUN, CA, CL, CO2, CREA, K #### [facility] [address] [place] [address] Dr. Florence Beltrán CREA 24 HR URINEon CREA, 24 HR UR 844.05 mg/24 hr Normal 800.00-1,8 00.00 [facility] Comment on above: Performed By: #### N A, URIC, BUN, CA, CL, CO2, CREA, K #### [facility] [address] [place] [address] Dr. Florence Beltrán URINE CREAT 49.65 mg/dL Normal 20.00-300. 00 [facility] Comment on above: Performed By: #### N A, URIC, BUN, CA, CL, CO2, CREA, K #### [facility] [address] [place] [address] Dr. Florence Beltrán CREATININEon 09-11-2022 Creatinine [Mass/Vol] 0.58 mg/dL Normal 0.55-1.02 [facility] Comment on above: Performed By: #### N A, URIC, BUN, CA, CL, CO2, CREA, K #### [facility] [address] [place] [address] Dr. Florence Beltrán EGFR-AF LITHUANIAN >60 Normal >=60 [facility] Comment on above: Performed By: #### N A, URIC, BUN, CA, CL, CO2, CREA, K #### [facility] [address] [place] [address] Dr. Florence Beltrán EGFR-NON AF LITHUANIAN >60 Normal >=60 [facility] Comment on above: Performed By: #### N A, URIC, BUN, CA, CL, CO2, CREA, K #### [facility] [address] [address] [address] Florence Beltrán NAon 09-11-2022 Sodium [Moles/Vol] 140 mmol/L Normal 136-145 [facility] Comment on above: Performed By: #### N A, URIC, BUN, CA, CL, CO2, CREA, K #### [facility] [address] [place] [address] Dr. Florence Beltrán POTASSIUMon 09-11-2022 Potassium [Moles/Vol] 4.1 mmol/L Normal 3.5-5.1 [facility] Comment on above: Performed By: #### N A, URIC, BUN, CA, CL, CO2, CREA, K #### [facility] [address] [place] [address] Dr. Florence Beltrán SODIUM 24 HR URINEon 022 NA, 24 HR UR 213 mmol/24 hr Normal 40-220 [facility] Comment on above: Performed By: #### N A, URIC, BUN, CA, CL, CO2, CREA, K #### [facility] [address] [place] [address] Dr. Florence Beltrán Sodium (U) [Moles/Vol] 125 mmol/L Critically high 30-90 [facility] Comment on above: Performed By: #### N A, URIC, BUN, CA, CL, CO2, CREA, K #### [facility] [address] [place] [address] Dr. Florence Beltrán URIC ACID SERUMon 09-11-2022 Urate [Mass/Vol] 4.4 mg/dL Normal 2.6-6.0 [facility] Comment on above: Performed By: #### N A, URIC, BUN, CA, CL, CO2, CREA, K #### [facility] [address] [address] [address] Florence Beltrán BUNon 04-23-2022 Urea nitrogen [Mass/Vol] 14.0 mg/dL Normal 7.0-18.0 [facility] Comment on above: Performed By: #### N A, URIC, BUN, CA, CL, CO2, CREA, K #### [facility] [address] [address] [address] Florence Beltrán CREATININEon 04-23-2022 Creatinine [Mass/Vol] 0.68 mg/dL Normal 0.55-1.02 [facility] Comment on above: Performed By: #### N A, URIC, BUN, CA, CL, CO2, CREA, K #### [facility] [address] [place] [address] Dr. Florence Beltrán EGFR-AF LITHUANIAN >60 Normal >=60 [facility] Comment on above: Performed By: #### N A, URIC, BUN, CA, CL, CO2, CREA, K #### [facility] [address] [address] [address] Florence Beltrán EGFR-NON AF LITHUANIAN >60 Normal >=60 [facility] Comment on above: Performed By: #### N A, URIC, BUN, CA, CL, CO2, CREA, K #### [facility] [address] [place] [address] Dr. Florence Beltrán XR IVPon 04-23-2022 XR IVP EXAMINATION: XR IVP HISTORY: Kidney stone COMPARISON: No relevant comparison available. TECHNIQUE: After obtaining patient consent a waterproof bag cutting machine operator image was obtained followed by injection of [...] by: ADRY LANGLEY Date: 2022-04-23 10:13 Normal [facility] CHEMISTRYOrdered By: SYSTEM SYSTEM on 03-30-2022 [...] 8.3 % Normal 4.0 - 14.0 % [facility] Monocytes/Leukocyte s Auto (Bld) [Pure # fraction] 0.9 E9/L Normal 0.2 - 1.0 E9/L [facility] Neutrophils/100 WBC (Bld) 71.6 % Normal 36.0 - 75.0 % [facility] Neutrophils/Leukocy anna Auto (Bld) [Pure # fraction] 7.6 E9/L High 2.0 - 7.5 E9/L [facility] HEMATOLOGYOrdered By: Randall Burns on 03-30-2022 Erythrocyte distribution width (RBC) [Ratio] 13.5 % Normal 10.9 - 14.2 % [facility] Hematocrit (Bld) [Volume fraction] 43.5 % Normal 34.0 - 46.0 % [facility] Hemoglobin (Bld) [Mass/Vol] 14.5 g/dL Normal 12.0 - 16.0 gm/dL [facility] MCH (RBC) [Entitic mass] 29.2 pg Normal 27.0 - 34.0 pg [facility] MCHC (RBC) [Mass/Vol] 33.3 g/dL Normal 31.4 - 36.0 gm/dL [facility] MCV (RBC) [Entitic vol] 87.7 fL Normal 80.0 - 100.0 fL [facility] Platelet mean volume (Bld) [Entitic vol] 7.5 fL Normal 6.4 - 10.8 fL [facility] Platelets (Bld) [#/Vol] 377.0 E9/L Normal 150.0 - 500.0 E9/L [facility] RBC (Bld) [#/Vol] 5.0 E12/L Normal 4.3 - 5.9 E12/L [facility] WBC corrected for nucl RBC Auto (Bld) [#/Vol] 10.6 E9/L Normal 4.0 - 11.0 E9/L [facility] URINALYSISOrdered By: Randall Burns on 03-30-2022 Bacteria LM Ql (Urine sed) 2+ /HPF Invalid Interpretation Code Trace/HPF [facility] Auto SS Bilirubin Ql (U) 1+ [...] Interpretation Code Negative [facility] UA Auto SS Hurley.plasma/Lith ium.RBC (Bld) [Mass ratio] 4-20 /HPF Normal [...] [facility] UA Auto SS Urobilinogen Qn (U) 0.1981142 {Joni'U}/dL Normal 0.0 - 1.0 EU/dL [facility] UA Auto SS WBC Auto Ql (U) 2+ *ABN* (03/30/22 10:55 PM) Invalid Interpretation Code Negative [facility] UA Auto SS WBC LM.HPF (Urine sed) [#/Area] 6-15 /HPF Invalid Interpretation Code 0-5/HPF [facility] UA Auto SS CBC AUTO DIFFon 02-27-2022 BASO # 0.1 103/ul Normal 0.0-0.1 [facility] Comment on above: Performed By: #### N A, URIC, BUN, CA, CL, CO2, CREA, K #### [facility] [address] [place] [address] Dr. Florence Beltrán Basophils/100 WBC (Bld) 0.6 % Normal 0.2-2.0 [facility] Comment on above: Performed By: #### N A, URIC, BUN, CA, CL, CO2, CREA, K #### [facility] [address] [place] [address] Dr. Florence Beltrán EO # 0.3 103/ul Normal 0.0-0.7 [facility] Comment on above: Performed By: #### N A, URIC, BUN, CA, CL, CO2, CREA, K #### [facility] [address] [place] [address] Dr. Florence Beltrán Eosinophils/100 WBC (Bld) 4.4 % Normal 0.9-7.0 [facility] Comment on above: Performed By: #### N A, URIC, BUN, CA, CL, CO2, CREA, K #### [facility] [address] [place] [address] Dr. Florence Beltrán Erythrocyte distribution width (RBC) [Ratio] 13.0 % Normal 11.0-15.0 [facility] Comment on above: Performed By: #### N A, URIC, BUN, CA, CL, CO2, CREA, K #### [facility] [address] [place] [address] Dr. Florence Beltrán Hematocrit (Bld) [Volume fraction] 42.3 % Normal 36.0-48.0 [facility] Comment on above: Performed By: #### N A, URIC, BUN, CA, CL, CO2, CREA, K #### [facility] [address] [place] [address] Dr. Florence Beltrán Hemoglobin (Bld) [Mass/Vol] 13.9 g/dL Normal 12.0-16.0 [facility] Comment on above: Performed By: #### N A, URIC, BUN, CA, CL, CO2, CREA, K #### [facility] [address] [place] [address] Dr. Florence Beltrán IG # 0.03 10e3/ul Normal 0.00-0.03 [facility] Comment on above: Performed By: #### N A, URIC, BUN, CA, CL, CO2, CREA, K #### [facility] [address] [place] [address] Dr. Florence Beltrán IG % 0.4 % Normal 0.0-0.5 [facility] Comment on above: Performed By: #### N A, URIC, BUN, CA, CL, CO2, CREA, K #### [facility] [address] [place] [address] Dr. Florence Beltrán LYMPH # 1.4 103/ul Normal 1.2-3.8 [facility] Comment on above: Performed By: #### N A, URIC, BUN, CA, CL, CO2, CREA, K #### [facility] [address] [place] [address] Dr. Florence Beltrán Lymphocytes/100 WBC (Bld) 17.9 % Critically low 20.5-60.0 [facility] Comment on above: Performed By: #### N A, URIC, BUN, CA, CL, CO2, CREA, K #### [facility] [address] [place] [address] Dr. Florence Beltrán MANUAL DIFF REQ NO Normal [facility] Comment on above: Performed By: #### N A, URIC, BUN, CA, CL, CO2, CREA, K #### [facility] [address] [place] [address] Dr. Florence Beltrán MCH (RBC) [Entitic mass] 29.6 pg Normal 26.7-34.0 [facility] Comment on above: Performed By: #### N A, URIC, BUN, CA, CL, CO2, CREA, K #### [facility] [address] [place] [address] Dr. Florence Beltrán MCHC (RBC) [Mass/Vol] 32.9 g/dL Normal 29.9-35.2 [facility] Comment on above: Performed By: #### N A, URIC, BUN, CA, CL, CO2, CREA, K #### [facility] [address] [place] [address] Dr. Florence Beltrán MCV (RBC) [Entitic vol] 90.0 fL Normal 81.0-99.0 [facility] Comment on above: Performed By: #### N A, URIC, BUN, CA, CL, CO2, CREA, K #### [facility] [address] [place] [address] Dr. Florence Beltrán MONO # 0.6 103/ul Normal 0.3-0.8 [facility] Comment on above: Performed By: #### N A, URIC, BUN, CA, CL, CO2, CREA, K #### [facility] [address] [place] [address] Dr. Florence Beltrán Monocytes/100 WBC (Bld) 7.8 % Normal 1.7-12.0 [facility] Comment on above: Performed By: #### N A, URIC, BUN, CA, CL, CO2, CREA, K #### [facility] [address] [place] [address] Dr. Florence Beltrán NEUT # 5.4 103/ul Normal 1.4-6.5 [facility] Comment on above: Performed By: #### N A, URIC, BUN, CA, CL, CO2, CREA, K #### [facility] [address] [place] [address] Dr. Florence Betlrán Neutrophils/100 WBC (Bld) 68.9 % Normal 43.0-75.0 [facility] Comment on above: Performed By: #### N A, URIC, BUN, CA, CL, CO2, CREA, K #### [facility] [address] [place] [address] Dr. Florence Beltrán Platelet mean volume (Bld) [Entitic vol] 9.6 fL Normal 9.5-13.5 [facility] Comment on above: Performed By: #### N A, URIC, BUN, CA, CL, CO2, CREA, K #### [facility] [address] [address] [address] Florence Beltrán PLT 371 103/ul Normal 150-450 [facility] Comment on above: Performed By: #### N A, URIC, BUN, CA, CL, CO2, CREA, K #### [facility] [address] [address] [address] Florence Beltrán RBC 4.70 106/ul Normal 4.20-5.40 [facility] Comment on above: Performed By: #### N A, URIC, BUN, CA, CL, CO2, CREA, K #### [facility] [address] [address] [address] Florence Beltrán WBC 7.8 103/ul Normal 4.0-11.0 [facility] Comment on above: Performed By: #### N A, URIC, BUN, CA, CL, CO2, CREA, K #### [facility] [address] [place] [address] Dr. Florence Beltrán CRPon 02-27-2022 CRP 1.1 mg/dL Critically high <=1.0 [facility] Comment on above: Performed By: #### N A, URIC, BUN, CA, CL, CO2, CREA, K #### [facility] [address] [address] [address] Florence Beltrán SED RATE WESTERGRENon 2021 SED RATE 44 mm/hr Critically high <=30 [facility] Comment on above: Performed By: #### N A, URIC, BUN, CA, CL, CO2, CREA, K #### [facility] [address] [place] [address] Dr. Florence Beltrán URIC ACID SERUMon 02-27-2022 Urate [Mass/Vol] 5.5 mg/dL Normal 2.6-6.0 [facility] Comment on above: Performed By: #### N A, URIC, BUN, CA, CL, CO2, CREA, K #### [facility] [address] [place] [address] Dr. Florence Beltrán CHEMISTRYOrdered By: SYSTEM SYSTEM [...] AM) Normal Negative [facility] UA Auto SS Hemoglobin Ql (U) 1+ *ABN* (01/24/22 6:50 AM) Invalid Interpretation Code Negative [facility] UA Auto SS Ketones (U) [Mass/Vol] Negative (01/24/22 6:50 AM) Normal Negative [facility]A Auto SS Hurley.plasma/Lith ium.RBC (Bld) [Mass ratio] 4-20 /HPF Normal 0-3/HPF [facility] UA Auto SS Mucus Ql (Urine sed) 1+ (01/24/22 6:50 AM) Normal [facility] Auto SS Nitrite Ql (U) Negative (01/24/22 6:50 AM) Normal Negative [facility] Auto SS pH (U) 7.0 *NA* (01/24/22 6:50 AM) Invalid Interpretation Code 5.0 - 9.0 [facility] UA Auto SS Protein (U) [Mass/Vol] Negative (01/24/22 6:50 AM) Normal Negative [facility] UA Auto SS Specific gravity (U) [Rel density] 1.020 *NA* (01/24/22 6:50 AM) Invalid Interpretation Code 1.005 - 1.030 [facility] UA Auto SS UA Spec Desc Clean Catch (01/24/22 6:50 AM) Normal [facility] UA Auto SS Urobilinogen Qn (U) [id number] {Joni'U}/dL Normal 0.0 - 1.0 EU/dL [facility] Auto SS WBC Auto Ql (U) Negative (01/24/22 6:50 AM) Normal Negative [facility] UA Auto SS WBC LM.HPF (Urine sed) [#/Area] 0-5 /HPF Normal 0-5/HPF [facility] UA Auto SS Urinalysis - AUTOMATEDon Appearance (U) cloudy [employer] Other Bilirubin Ql (U) moderate [employer] Other Color (U) amauri [employer] Other Glucose Ql (U) Negative [employer] Other Hemoglobin Ql (U) large [facility] [employer] Other Ketones Ql (U) trace [employer] Other Leukocyte esterase Test strip Ql (U) trace [employer] Other Nitrite Ql (U) Negative [employer] Other pH (U) 5.0 [pH] [employer] Other Protein Ql (U) 100 [employer] Other Specific gravity (U) [Rel density] >1.030 [employer] Other Urobilinogen (U) [Mass/Vol] 1.0 mg/dL [employer] Other Urinalysis - AUTOMATED [employer] Other Urine Cultureon 01-14-2022 Bacteria identified Cx Nom (U) [employer] Other TSH+FREE T4on 01-11-2022 Free T4 [Mass/Vol] 1.3 ng/dL Normal 0.8-1.8 [facility] Comment on above: Performed By: #### 5 [id number] #### [facility] [place] [address] [employer] Worker: Geremias Toney MD TSH Qn 1.12 m[IU]/L Normal 0.40-4.50 [facility] Comment on above: Performed By: #### 5 [id number] #### [facility] [place] [address] [employer] Worker: Geremias Toney MD CHEMISTRYOrdered By: SYSTEM SYSTEM [...] m2 [facility] Chem S Globulin (S) [Mass/Vol] 3.2 g/dL Normal 1.4 - 4.0 gm/dL [facility] Remisol Glucose [Mass/Vol] 97 mg/dL Normal 55 - 199 mg/dL [facility] Remisol Potassium [Moles/Vol] 4.6 mmol/L Normal 3.5 - 5.3 mmol/L [facility] Remisol Protein [Mass/Vol] 6.9 g/dL Normal 6.0 - 7.8 gm/dL [facility] Remisol Sodium [Moles/Vol] 139 mmol/L Normal 135 [...] By: #### 1 0231 #### [facility] [place] [address] [employer] Worker: Geremias Toney MD Albumin/Globulin [Mass ratio] 1.8 {ratio} Normal 1.0-2.5 [facility] Comment on above: Performed By: #### 1 0231 #### [facility] [place] [address] [employer] Worker: Geremias Toney MD ALP [Catalytic activity/Vol] 132 U/L Normal 37-153 [facility] Comment on above: Performed By: #### 1 0231 #### [facility] [place] [address] [employer] Worker: Geremias Toney MD ALT [Catalytic activity/Vol] 102 U/L High 6-29 [facility] Comment on above: Performed By: #### 1 0231 #### [facility] [place] [address] [employer] Worker: Geremias Toney MD AST [Catalytic activity/Vol] 54 U/L High 10-35 [facility] Comment on above: Performed By: #### 1 0231 #### [facility] of [place] [address] [employer] Worker: Geremias Toney MD Bilirubin [Mass/Vol] 0.6 mg/dL Normal 0.2-1.2 [facility] Comment on above: Performed By: #### 1 1 #### [facility] of [place] [address] [employer] Worker: Geremias Toney MD BUN/CREATININE RATIO NOT APPLICABLE Normal 6-22 [facility] Comment on above: Performed By: #### 1 1 #### [facility] [place] [address] [employer] Worker: Geremias Toney MD Calcium [Mass/Vol] 9.3 mg/dL Normal 8.6-10.4 [facility] Comment on above: Performed By: #### 1 1 #### [facility] [place] [address] [employer] Worker: Geremias Toney MD Chloride [Moles/Vol] 108 mmol/L Normal 98-110 [facility] Comment on above: Performed By: #### 1 1 #### [facility] [place] [address] [employer] Worker: Geremias Toney MD CO2 [Moles/Vol] 28 mmol/L Normal 20-32 [facility] Comment on above: Performed By: #### 1 1 #### [facility] of [place] [address] [employer] Worker: Geremias Toney MD Creatinine [Mass/Vol] 0.62 mg/dL Normal 0.50-1.05 [facility] Comment on above: Result Comment: For patients >49 years of age, the reference limit for Creatinine is approximately 13% higher for people identified as -Mozambican. Performed By: #### 1 1 #### [facility] of [address] [place] [address] [employer] Worker: Geremias Toney MD eGFR NON-AFR. LITHUANIAN 99 mL/min/1.73m2 Normal > OR = 60 [facility] Comment on above: Performed By: #### 1 0231 #### [facility] [place] [address] [employer] Worker: Geremias Toney MD GFR/1.73 sq M.predicted among blacks MDRD (S/P/Bld) [Vol rate/Area] 114 mL/min/{1.73_m2} Normal > OR = 60 [facility] Comment on above: Performed By: #### 1 0231 #### [facility] [place] [address] [employer] Worker: Geremias Toney MD Globulin (S) [Mass/Vol] 2.4 g/dL Normal 1.9-3.7 [facility] Comment on above: Performed By: #### 1 0231 #### [facility] of [place] [address] [employer] Worker: Geremias Toney MD Glucose [Mass/Vol] 97 mg/dL Normal 65-99 [facility] Comment on above: Result Comment: Fasting reference interval Performed By: #### 1 0231 #### [facility] [place] [address] [employer] Worker: Geremias Toney MD Potassium [Moles/Vol] 3.7 mmol/L Normal 3.5-5.3 [facility] Comment on above: Performed By: #### 1 0231 #### [facility] of [place] [address] [employer] Worker: Geremias Toney MD Protein [Mass/Vol] 6.6 g/dL Normal 6.1-8.1 [facility] Comment on above: Performed By: #### 1 0231 #### [facility] [place] [address] [employer] Worker: Geremias Toney MD Sodium [Moles/Vol] 143 mmol/L Normal 135-146 [facility] Comment on above: Performed By: #### 1 0231 #### [facility] [address], [address] [place] [address] [employer] Worker: Geremias Toney MD Urea nitrogen [Mass/Vol] 14 mg/dL Normal 7-25 [facility] Comment on above: Performed By: #### 1 0231 #### [facility] [address], [address] [place] [address] [employer] Worker: Geremias Toney MD COVID Quick Testingon 2020 Result Negative [employer] Other BASIC METABOLIC PANEL W/O CA on 02-09-2021 BUN/CREATININE RATIO NOT APPLICABLE Normal 6-22 [facility] Comment on above: Performed By: #### 5 [id number], [id number] #### [facility] [place] [address] [employer] Worker: Geremias Toney MD Chloride [Moles/Vol] 103 mmol/L Normal 98-110 [facility] Comment on above: Performed By: #### 5 8984, [id number] #### [facility] [place] [address] [employer] Worker: Geremias Toney MD CO2 [Moles/Vol] 29 mmol/L Normal 20-32 [facility] Comment on above: Performed By: #### 5 8984, [id number] #### [facility] [place] [address] [employer] Worker: Geremias Toney MD Creatinine [Mass/Vol] 0.64 mg/dL Normal 0.50-1.05 [facility] Comment on above: Result Comment: For patients >49 years of age, the reference limit for Creatinine is approximately 13% higher for people identified as -Mozambican. Performed By: #### 5 [id number], [id number] #### [facility] [address], [address] [place] [address] [employer] Worker: Geremias Toney MD eGFR NON-AFR. LITHUANIAN 98 mL/min/1.73m2 Normal > OR = 60 [facility] Comment on above: Performed By: #### 5 [id number], 36041 #### [facility] [place] [address] [employer] Worker: Geremias Toney MD GFR/1.73 sq M.predicted among blacks MDRD (S/P/Bld) [Vol rate/Area] 114 mL/min/{1.73_m2} Normal > OR = 60 [facility] Comment on above: Performed By: #### 5 [id number], [id number] #### [facility] [address], [address] [place] [address] [employer] Worker: Geremias Toney MD Glucose [Mass/Vol] 90 mg/dL Normal 65-99 [facility] Comment on above: Result Comment: Fasting reference interval Performed By: #### 5 [id number], [id number] #### [facility] [place] [address] [employer] Worker: Geremias Toney MD Potassium [Moles/Vol] 4.4 mmol/L Normal 3.5-5.3 [facility] Comment on above: Performed By: #### 5 8984, 32822 #### [facility] [place] [address] [employer] Worker: Geremias Toney MD Sodium [Moles/Vol] 143 mmol/L Normal 135-146 [facility] Comment on above: Performed By: #### 5 8984, 08716 #### [facility] [place] [address] [employer] Worker: Geremias Toney MD Urea nitrogen [Mass/Vol] 17 mg/dL Normal 7-25 [facility] Comment on above: Performed By: #### 5 8984, [id number] #### [facility] of [place] [address] [employer] Worker: Geremias Toney MD TSH+FREE T4on 02-09-2021 Free T4 [Mass/Vol] 1.1 ng/dL Normal 0.8-1.8 [facility] Comment on above: Performed By: #### 5 [id number], [id number] #### [facility] [address], [address] [place], [place] [id number] [employer] Worker: Geremias Toney MD TSH Qn 0.59 m[IU]/L Normal 0.40-4.50 [facility] Comment on above: Performed By: #### 5 [id number], 12753 #### [facility] [address], [address] [place], [place] [phone] [employer] Worker: Geremias Toney MD Vital Signs Date Time Vital Sign Value Performing Clinician Facility 03-02-2025 08:59-0400 Body height 165.1 cm Manju Solo MD Work Phone: [facility] 03-02-2025 08:59-0400 Body mass index (BMI) [Ratio] 30.95 kg/m2 Manju Solo MD Work Phone: [facility] 03-02-2025 08:59-0400 Body weight 84.37 kg Manju Solo MD Work Phone: [facility] 03-02-2025 08:59-0400 Diastolic blood pressure 84 mm[Hg] Manju Solo MD Work Phone: [facility] 03-02-2025 08:59-0400 Heart rate 66 /min Manju Solo MD Work Phone: [facility] 03-02-2025 08:59-0400 Respiratory rate 16 /min Manju Solo MD Work Phone: [facility] 03-02-2025 08:59-0400 SaO2% (BldA) [Mass fraction] 94 % Manju Solo MD Work Phone: [facility] 03-02-2025 08:59-0400 Systolic blood pressure 132 mm[Hg] Manju Solo MD Work Phone: [facility] 01-27-2025 11:25-0400 Body height 165.1 cm Barbara Fran 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: [facility] [employer] [facility] 01-27-2025 11:25-0400 Body mass index (BMI) [Ratio] 30.79 kg/m2 Barbara Peters 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: [facility] 01-27-2025 11:25-0400 Body temperature 97.9 [degF] Barbara Peters 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: [facility] 01-27-2025 11:25-0400 Body weight 83.92 kg Barbara Peters 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: [facility] 01-27-2025 11:25-0400 Diastolic blood pressure 78 mm[Hg] Barbara Peters 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: [facility] 01-27-2025 11:25-0400 Heart rate 85 /min Barbara Peters 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: [facility] 01-27-2025 11:25-0400 Respiratory rate 18 /min Barbara Peters 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: [facility] 01-27-2025 11:25-0400 SaO2% (BldA) [Mass fraction] 96 % Barbara Peters 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: [facility] 01-27-2025 11:25-0400 Systolic blood pressure 128 mm[Hg] Barbara Peters 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: [facility] 01-26-2025 15:03-0400 Body height 165.1 cm Joanna Palacios 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: [facility] 01-26-2025 15:03-0400 Body mass index (BMI) [Ratio] 30.95 kg/m2 Joannajosep Palacios 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: [facility] [employer] [facility] 01-26-2025 15:03-0400 Body weight 84.37 kg Joannajosep Valdesgel 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: [facility] [employer] [facility] 01-26-2025 15:03-0400 Diastolic blood pressure 86 mm[Hg] Joanna Palacios 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: [facility] 01-26-2025 15:03-0400 Heart rate 90 /min Joanna Palacios 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: [facility] 01-26-2025 15:03-0400 SaO2% (BldA) [Mass fraction] 97 % Joanna Palacios 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: [facility] [employer] [facility] 01-26-2025 15:03-0400 Systolic blood pressure 153 mm[Hg] Joanna Palacios 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: [facility] 01-13-2025 11:27-0400 Body height 165.1 cm Radha Kahn PA Work Phone: [facility] 01-13-2025 11:27-0400 Body mass index (BMI) [Ratio] 31.62 kg/m2 Radha Kahn PA Work Phone: [facility] [employer] [facility] 01-13-2025 11:27-0400 Body weight 86.18 kg Radha Kahn PA Work Phone: [facility] 01-13-2025 11:27-0400 Diastolic blood pressure 78 mm[Hg] Radha Kahn PA Work Phone: [facility] 01-13-2025 11:27-0400 Heart rate 87 /min Radha Kahn PA Work Phone: [facility] [employer] [facility] 01-13-2025 11:27-0400 Respiratory rate 16 /min Radha Kahn PA Work Phone: [facility] 01-13-2025 11:27-0400 SaO2% (BldA) [Mass fraction] 98 % Radha Kahn PA Work Phone: [facility] 01-13-2025 11:27-0400 Systolic blood pressure 142 mm[Hg] Radha [facility]ENDOZA [facility] 12-30-2024 11:46-0400 Body height 165.1 cm Barbara Fran 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: [email or web address] 12-30-2024 11:46-0400 Body mass index (BMI) [Ratio] 31.62 kg/m2 Barbara Fran 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 12-30-2024 11:46-0400 Body temperature 98.1 [degF] Barbara Fran 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 12-30-2024 11:46-0400 Body weight 86.18 kg Barbara Fran 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 12-30-2024 11:46-0400 Diastolic blood pressure 82 mm[Hg] Barbara Fran 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 12-30-2024 11:46-0400 Heart rate 84 /min Barbara Fran 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: [email or web address] 12-30-2024 11:46-0400 Respiratory rate 18 /min Barbara Fran 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 12-30-2024 11:46-0400 SaO2% (BldA) [Mass fraction] 97 % Barbara Fran 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 12-30-2024 11:46-0400 Systolic blood pressure 130 mm[Hg] Barbara Fran 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: [facility] 12-08-2024 09:50-0400 Body height 165.1 cm Toni Bansal MD Work Phone: [facility] 12-08-2024 09:50-0400 Body mass index (BMI) [Ratio] 32.08 kg/m2 Toni Bansal MD Work Phone: [facility] 12-08-2024 09:50-0400 Body weight 87.45 kg Toni Bansal MD Work Phone: [facility] 10-19-2024 10:11-0500 Body height 165.1 cm P[facility] 1 [facility] 10-19-2024 10:11-0500 Body mass index (BMI) [Ratio] 32.12 kg/m2 P[facility] 1 [facility] 10-19-2024 10:11-0500 Body weight 87.54 kg Pmh 1 [facility] 08-11-2024 09:41-0500 Body height 165.1 cm Toni Bansal MD Work Phone: 4(008)982-984006 [place] [address] 08-11-2024 09:41-0500 Body mass index (BMI) [Ratio] 32.22 kg/m2 Toni Bansal MD Work Phone: [facility] 08-11-2024 09:41-0500 Body weight 87.82 kg Toni Bansal MD Work Phone: 8(994)235-889906 [place] [address] 07-28-2024 14:46-0500 Body height 165.1 cm Pmh 1 [facility] 07-28-2024 14:46-0500 Body mass index (BMI) [Ratio] 30.62 kg/m2 [facility] 1 [facility] 07-28-2024 14:46-0500 Body weight 83.46 kg Pmh 1 [facility] 06-30-2024 10:00-0400 Body height 165.1 cm Toni Bansal MD Work Phone: [facility] 06-30-2024 10:00-0400 Body mass index (BMI) [Ratio] 31.14 kg/m2 Toni Bansal MD Work Phone: [facility] 06-30-2024 10:00-0400 Body weight 84.87 kg Toni Bansal MD Work Phone: [facility] 06-24-2024 13:46-0400 Body height 165.4 cm Barbara Peters APRN-ALEKSANDRA Work Phone: [email or web address] 06-24-2024 13:46-0400 Body mass index (BMI) [Ratio] 30.64 kg/m2 Barbara Peters APRN-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 [employer] Work Phone: [facility] [employer] [facility] 06-24-2024 13:46-0400 Body temperature 98.01 [degF] Barbara Peters APRN-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 Work Phone: [facility] [employer] [facility] 06-24-2024 13:46-0400 Body weight 83.83 kg Barbara Peters APRN-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 Work Phone: [facility] [employer] [facility] 06-24-2024 13:46-0400 Diastolic blood pressure 78 mm[Hg] Barbara Peters APRN-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 Work Phone: [facility] [employer] [facility] 06-24-2024 13:46-0400 Heart rate 76 /min Barbara Peters APRN-ALEKSANDRA Work Phone: [facility] [employer] [facility] 06-24-2024 13:46-0400 SaO2% (BldA) [Mass fraction] 96 % Barbara Peters APRN-ALEKSANDRA Work Phone: [facility] [employer] [facility] 06-24-2024 13:46-0400 Systolic blood pressure 120 mm[Hg] Barbara Peters APRN-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 Work Phone: [facility] [employer] [facility] 06-17-2024 13:30-0400 Body temperature 97.5 [degF] Toni Bansal MD Work Phone: [facility] 06-17-2024 13:30-0400 Diastolic blood pressure 56 mm[Hg] Toni Bansal MD Work Phone: [facility] 06-17-2024 13:30-0400 Respiratory rate 16 /min Toni Bansal MD Work Phone: [facility] 06-17-2024 13:30-0400 SaO2% (BldA) [Mass fraction] 96 % Toni Bansal MD Work Phone: [facility] 06-17-2024 13:30-0400 Systolic blood pressure 112 mm[Hg] Toni Bansal MD Work Phone: [facility] 06-17-2024 13:14-0400 Heart rate 86 /min Toni Bansal MD Work Phone: [facility] 06-17-2024 06:57-0400 Body height 165.1 cm Toni Bansal MD Work Phone: [facility] 06-17-2024 06:57-0400 Body mass index (BMI) [Ratio] 31.59 kg/m2 Toni Bansal MD Work Phone: [facility] 06-17-2024 06:57-0400 Body weight 86.1 kg Toni Bansal MD Work Phone: [facility] 05-06-2024 13:10-0400 Body height 165.4 cm Barbara Peters 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: [facility] [employer] [facility] 05-06-2024 13:10-0400 Body mass index (BMI) [Ratio] 31.24 kg/m2 Barbara Fran 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: [facility] 05-06-2024 13:10-0400 Body temperature 98.1 [degF] Barbara Fran 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: [facility] 05-06-2024 13:10-0400 Body weight 85.46 kg Barbara Fran 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: [facility] 05-06-2024 13:10-0400 Diastolic blood pressure 68 mm[Hg] Barbara Fran 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: [facility] 05-06-2024 13:10-0400 Heart rate 100 /min Barbara Fran 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: [facility] 05-06-2024 13:10-0400 Respiratory rate 18 /min Barbaraliz Peters 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: [facility] 05-06-2024 13:10-0400 SaO2% (BldA) [Mass fraction] 97 % Barbara Peters 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: [facility] 05-06-2024 13:10-0400 Systolic blood pressure 110 mm[Hg] Barbaraliz Peters 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: [facility] 04-01-2024 11:42-0400 Body height 165.4 cm Barbara Peters 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: [facility] 04-01-2024 11:42-0400 Body mass index (BMI) [Ratio] 31.7 kg/m2 Barbara Peters 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: [facility] 04-01-2024 11:42-0400 Body temperature 97.2 [degF] Barbara Peters 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: [facility] 04-01-2024 11:42-0400 Body weight 86.73 kg Barbara Peters 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: [facility] 04-01-2024 11:42-0400 Diastolic blood pressure 70 mm[Hg] Barbara Peters 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: [facility] 04-01-2024 11:42-0400 Heart rate 77 /min Barbaraliz Peters 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: [facility] 04-01-2024 11:42-0400 Respiratory rate 18 /min Barbara Peters 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: [facility] 04-01-2024 11:42-0400 SaO2% (BldA) [Mass fraction] 98 % Barbaraliz Peters 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: [facility] 04-01-2024 11:42-0400 Systolic blood pressure 120 mm[Hg] Barbara Peters 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: [facility] 03-11-2024 12:37-0400 Blood Pressure Location FLORINDA KADE [facility] 03-11-2024 12:37-0400 Body temperature 96.8 [degF] FLORINDA KADE [facility] 03-11-2024 12:37-0400 Diastolic blood pressure 72 mm[Hg] FLORINDA KADE [facility] 03-11-2024 12:37-0400 Heart rate 64 /min FLORINDA KADE [facility] 03-11-2024 12:37-0400 Respiratory rate 18 /min FLORINDA KADE [facility] 03-11-2024 12:37-0400 Systolic blood pressure 126 mm[Hg] FLORINDA KADE [facility] 03-05-2024 08:40-0400 Body height 165.4 cm Barbaraliz Mcknightuch 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: [facility] 03-05-2024 08:40-0400 Body mass index (BMI) [Ratio] 33.06 kg/m2 Barbara Fran 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: [facility] 03-05-2024 08:40-0400 Body temperature 97.81 [degF] Barbara Fran 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: [facility] 03-05-2024 08:40-0400 Body weight 90.45 kg Barbara Fran 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: [facility] [employer] [facility] 03-05-2024 08:40-0400 Diastolic blood pressure 68 mm[Hg] Barbara Peters 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: [facility] 03-05-2024 08:40-0400 Heart rate 71 /min Barbaraliz Peters 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: [facility] 03-05-2024 08:40-0400 Respiratory rate 20 /min Barbaraliz Peters 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: [facility] 03-05-2024 08:40-0400 SaO2% (BldA) [Mass fraction] 97 % Barbara Peters 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: [facility] 03-05-2024 08:40-0400 Systolic blood pressure 110 mm[Hg] Barbara Peters 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: [facility] 01-28-2024 15:53-0400 Body height 165.4 cm Barbara Peters 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: [facility] 01-28-2024 15:53-0400 Body mass index (BMI) [Ratio] 33.56 kg/m2 Barbara ePters 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: [facility] 01-28-2024 15:53-0400 Body temperature 98.01 [degF] Barbara Peters 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: [facility] 01-28-2024 15:53-0400 Body weight 91.81 kg Barbara Peters 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: [facility] 01-28-2024 15:53-0400 Diastolic blood pressure 82 mm[Hg] Barbara Peters 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: [facility] 01-28-2024 15:53-0400 Heart rate 91 /min Barbaraliz Peters 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: [facility] 01-28-2024 15:53-0400 Respiratory rate 20 /min Barbara Peters 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: [facility] 01-28-2024 15:53-0400 SaO2% (BldA) [Mass fraction] 96 % Barbara Peters 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: [facility] 01-28-2024 15:53-0400 Systolic blood pressure 152 mm[Hg] Barbara Peters 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: [facility] 12-29-2023 15:08-0400 Body height 165.1 cm [facility] 12-29-2023 15:08-0400 Body mass index (BMI) [Ratio] 33.6 kg/m2 [facility] 12-29-2023 15:08-0400 Body weight 91.62 kg [facility] 12-29-2023 15:08-0400 Diastolic blood pressure 96 mm[Hg] [facility] 12-29-2023 15:08-0400 Heart rate 81 /min [facility] 12-29-2023 15:08-0400 SaO2% (BldA) [Mass fraction] 92 % [facility] 12-29-2023 15:08-0400 Systolic blood pressure 157 mm[Hg] [facility] 11-25-2023 13:43-0400 Blood Pressure Location FLORINDARADHA PATRICIA [facility] 11-25-2023 13:43-0400 Body temperature 98.96 [degF] FLORINDA PATRICIA [facility] 11-25-2023 13:43-0400 Diastolic blood pressure 86 mm[Hg] FLORINDA KADE [facility] 11-25-2023 13:43-0400 Heart rate 82 /min FLORINDA KADE [facility] 11-25-2023 13:43-0400 Systolic blood pressure 132 mm[Hg] FLORINDA PATRICIA [facility] 06-15-2023 10:10-0400 Body height 165.1 cm Maria Isabel Leonie Other [employer] Other 06-15-2023 10:10-0400 Body mass index (BMI) [Ratio] 29.95 kg/m2 Maria Isabel Leonie Other [employer] Other 06-15-2023 10:10-0400 Body temperature 98.3 [degF] Maria Isabel Leonie Other [employer] Other 06-15-2023 10:10-0400 Body weight 81.65 kg Maria Isabel Leonie Other [employer] Other 06-15-2023 10:10-0400 Diastolic blood pressure 75 mm[Hg] Maria Isabel Leonie Other [employer] Other 06-15-2023 10:10-0400 SaO2% (BldA) [Mass fraction] 97 % Maria Isabel Leonie Other [employer] Other 06-15-2023 10:10-0400 Systolic blood pressure 140 mm[Hg] Maria Isabel Leonie Other [employer] Other 06-02-2023 10:05-0400 Body height 165.1 cm Maria Isabel Leonie Other [employer] Other 06-02-2023 10:05-0400 Body mass index (BMI) [Ratio] 30.78 kg/m2 Maria Isabel Leonie Other [employer] Other 06-02-2023 10:05-0400 Body temperature 97.8 [degF] Maria Isabel Hadley Other [employer] Other 06-02-2023 10:05-0400 Body weight 83.92 kg Maria Isabel Hadley Other [employer] Other 06-02-2023 10:05-0400 Diastolic blood pressure 77 mm[Hg] Maria Isabel Hadley Other [employer] Other 06-02-2023 10:05-0400 Respiratory rate 18 /min Maria Isabel Hadley Other [employer] Other 06-02-2023 10:05-0400 SaO2% (BldA) [Mass fraction] 96 % Maria Isabel Hadley Other [employer] Other 06-02-2023 10:05-0400 Systolic blood pressure 131 mm[Hg] Maria Isabel Hadley Other [employer] Other 12-23-2022 14:30-0400 Body height 165.1 cm Caitlyn Long Other [employer] Other 12-23-2022 14:30-0400 Body mass index (BMI) [Ratio] 31.7 kg/m2 Caitlyn Wilkinsonalissa Other [employer] Other 12-23-2022 14:30-0400 Body weight 86.41 kg Caitlyn Wilkinsonalissa Other [employer] Other 12-23-2022 14:30-0400 Diastolic blood pressure 77 mm[Hg] Caitlyn Long Other [employer] Other 12-23-2022 14:30-0400 SaO2% (BldA) [Mass fraction] 97 % Caitlyn Long Other [employer] Other 12-23-2022 14:30-0400 Systolic blood pressure 138 mm[Hg] Caitlyn Long Other [employer] Other 11-25-2022 09:52-0400 Body temperature 98.6 [degF] Mariusz Lackeye [facility] 11-25-2022 09:52-0400 Diastolic blood pressure 68 mm[Hg] Mariusz [facility]key[facility] 11-25-2022 09:52-0400 Heart rate 89 /min Mariusz [facility] 11-25-2022 09:52-0400 Respiratory rate 18 /min Mariusz [facility] 11-25-2022 09:52-0400 SaO2% (BldA) [Mass fraction] 93 % Mariusz Ro [facility] 11-25-2022 09:52-0400 Systolic blood pressure 138 mm[Hg] Mariusz [facility] 11-20-2022 09:15-0500 Body height 165.1 cm Maria Isabel Hadley Other [employer] Other 11-20-2022 09:15-0500 Body mass index (BMI) [Ratio] 31.45 kg/m2 Maria Isabel Leonie Other [employer] Other 11-20-2022 09:15-0500 Body temperature 98.5 [degF] Maria Isabel Hadley Other [employer] Other 11-20-2022 09:15-0500 Body weight 85.73 kg Maria Isabel Hadley Other [employer] Other 11-20-2022 09:15-0500 Respiratory rate 18 /min Maria Isabel Hadley Other [employer] Other 11-20-2022 09:15-0500 SaO2% (BldA) [Mass fraction] 96 % Maria Isabel Hadley Other [employer] Other 11-19-2022 11:09-0500 Blood Pressure Location FLORINDA SERRATORY [facility] 11-19-2022 11:09-0500 Diastolic blood pressure 78 mm[Hg] FLORINDA PATRICIA [facility] 11-19-2022 11:09-0500 Heart rate 80 /min FLORINDA PATRICIA [facility] 11-19-2022 11:09-0500 Systolic blood pressure 126 mm[Hg] FLORINDA SERRATORY [facility] 06-24-2022 14:30-0400 Body height 165.1 cm Caitlyn Long Other [employer] Other 06-24-2022 14:30-0400 Body mass index (BMI) [Ratio] 29.93 kg/m2 Caitlyn Long Other [employer] Other 06-24-2022 14:30-0400 Body temperature 96.8 [degF] Caitlyn Long Other [employer] Other 06-24-2022 14:30-0400 Body weight 81.6 kg Caitlyn Long Other [employer] Other 06-24-2022 14:30-0400 Diastolic blood pressure 84 mm[Hg] Caitlyn Long Other [employer] Other 06-24-2022 14:30-0400 SaO2% (BldA) [Mass fraction] 97 % Caitlyn Long Other [employer] Other 06-24-2022 14:30-0400 Systolic blood pressure 128 mm[Hg] Caitlyn Long Other [employer] Other 04-19-2022 08:53-0400 Blood Pressure Location [email or web address] [facility] 04-19-2022 08:53-0400 Diastolic blood pressure 83 mm[Hg] Justin YI [facility] 04-19-2022 08:53-0400 Heart rate 74 /min Justin YI [facility] 04-19-2022 08:53-0400 Respiratory rate 16 /min Justin YI [facility] 04-19-2022 08:53-0400 Systolic blood pressure 143 mm[Hg] Justin YI [facility] 03-31-2022 14:00-0400 Body temperature 98.42 [degF] [facility] 03-31-2022 14:00-0400 Diastolic blood pressure 60 mm[Hg] [facility] 03-31-2022 14:00-0400 Heart rate 68 /min [facility] 03-31-2022 14:00-0400 Mean blood pressure 82 mm[Hg] [facility] 03-31-2022 14:00-0400 Respiratory rate 11 /min [facility] 03-31-2022 14:00-0400 SaO2% (BldA) [Mass fraction] 97 % [facility] 03-31-2022 14:00-0400 Systolic blood pressure 126 mm[Hg] [facility] 03-31-2022 01:00-0400 Body temperature 98.6 [degF] [facility] 03-31-2022 01:00-0400 Diastolic blood pressure 67 mm[Hg] [facility] 03-31-2022 01:00-0400 Mean blood pressure 86 mm[Hg] [facility] 03-31-2022 01:00-0400 Respiratory rate 11 /min [facility] 03-31-2022 01:00-0400 SaO2% (BldA) [Mass fraction] 97 % [facility] 03-31-2022 01:00-0400 Systolic blood pressure 125 mm[Hg] [facility] 03-31-2022 00:00-0400 Body temperature 98.24 [degF] [facility] 03-31-2022 00:00-0400 Diastolic blood pressure 76 mm[Hg] [facility] 03-31-2022 00:00-0400 Heart rate 78 /min [facility] 03-31-2022 00:00-0400 Mean blood pressure 97 mm[Hg] [facility] 03-31-2022 00:00-0400 Respiratory rate 12 /min [facility] 03-31-2022 00:00-0400 Systolic blood pressure 140 mm[Hg] [facility] 03-30-2022 22:55-0400 Blood Pressure Location [facility] 03-30-2022 21:24-0400 Heart rate 70 /min [facility] 03-30-2022 21:24-0400 Respiratory rate 18 /min [facility] 01-24-2022 18:00-0400 [facility] Round[facility] 01-24-2022 18:00-0400 Promise to Return [facility] 01-24-2022 15:52-0400 Body temperature 98.06 [degF] [facility] 01-24-2022 15:52-0400 Diastolic blood pressure 80 mm[Hg] [facility] 01-24-2022 15:52-0400 Heart rate 68 /min [facility] 01-24-2022 15:52-0400 Mean blood pressure 98 mm[Hg] [facility] 01-24-2022 15:52-0400 SaO2% (BldA) [Mass fraction] 94 % [facility] 01-24-2022 15:52-0400 Systolic blood pressure 133 mm[Hg] [facility] 01-24-2022 15:39-0400 SaO2% (BldA) [Mass fraction] 95 % [facility] 01-24-2022 14:54-0400 Body temperature 97.88 [degF] [facility] 01-24-2022 14:54-0400 Diastolic blood pressure 77 mm[Hg] [facility] 01-24-2022 14:54-0400 Heart rate 64 /min [facility] 01-24-2022 14:54-0400 Mean blood pressure 95 mm[Hg] [facility] 01-24-2022 14:54-0400 Respiratory rate 15 /min [facility] 01-24-2022 14:54-0400 SaO2% (BldA) [Mass fraction] 95 % [facility] 01-24-2022 14:54-0400 Systolic blood pressure 132 mm[Hg] [facility] 01-24-2022 14:45-0400 Diastolic blood pressure 82 mm[Hg] [facility] 01-24-2022 14:45-0400 Heart rate 65 /min [facility] 01-24-2022 14:45-0400 Mean blood pressure 101 mm[Hg] [facility] 01-24-2022 14:45-0400 Respiratory rate 13 /min [facility] 01-24-2022 14:45-0400 Systolic blood pressure 140 mm[Hg] [facility] 01-24-2022 14:40-0400 Body temperature 97.16 [degF] [facility] 01-24-2022 14:40-0400 Mean blood pressure 98 mm[Hg] [facility] 01-24-2022 14:40-0400 Respiratory rate 16 /min [facility] 01-24-2022 14:29-0400 Body temperature 96.44 [degF] [facility] Comment on above: Result Comment: warm blanket applied 01-24-2022 11:00-0400 Heart rate 74 /min [facility] 01-24-2022 09:39-0400 Heart rate 69 /min [facility] 01-24-2022 08:30-0400 Heart rate 68 /min [facility] 01-24-2022 06:07-0400 Body temperature 97.7 [degF] Bert MENARD [facility] 01-14-2022 12:45-0400 Body height 165.1 cm Maria Isabel Hadley Other [employer] Other 01-14-2022 12:45-0400 Body mass index (BMI) [Ratio] 30.78 kg/m2 Maria Isabel Leonie Other [employer] Other 01-14-2022 12:45-0400 Body temperature 97.3 [degF] Maria Isabel Hadley Other [employer] Other 01-14-2022 12:45-0400 Body weight 83.92 kg Maria Isabel Leonie Other [employer] Other 01-14-2022 12:45-0400 Diastolic blood pressure 83 mm[Hg] Maria Isabel Leonie Other [employer] Other 01-14-2022 12:45-0400 Respiratory rate 18 /min Maria Isabel Garciamond Other [employer] Other 01-14-2022 12:45-0400 SaO2% (BldA) [Mass fraction] 98 % Maria Isabel Garciamond Other [employer] Other 01-14-2022 12:45-0400 Systolic blood pressure 149 mm[Hg] Maria Isabel Leonie Other [employer] Other 07-12-2021 11:30-0400 Body height 165.1 cm Kristina Donald Other [employer] Other 07-12-2021 11:30-0400 Body mass index (BMI) [Ratio] 28.79 kg/m2 Kristina Donald Other [employer] Other 07-12-2021 11:30-0400 Body temperature 97.4 [degF] Kristina Donald Other [employer] Other 07-12-2021 11:30-0400 Body weight 78.47 kg Kristina Donald Other [employer] Other 07-12-2021 11:30-0400 Respiratory rate 18 /min Kristina Donald Other [employer] Other 07-12-2021 11:30-0400 SaO2% (BldA) [Mass fraction] 98 % Kristina Donald Other [employer] Other Encounters Encounter Date Encounter Type Care Provider Facility Start: 03-08-2025 ambulatory BLANCA PATRICIA Facility:[facility] Start: 03-02-2025 End: 03-02-2025 Bamboo flowsheet Manju Solo MD Work Phone: [facility] Start: 03-02-2025 End: 03-02-2025 Bamboo flowsheet Manju Solo MD Work Phone: [facility] Start: 03-02-2025 End: 03-02-2025 Office outpatient visit 25 minutes Manju Solo MD Work Phone: [facility] Comment on above: Graves' disease (Joana daljit Dx); Hyperthyroidism ; Multinodular goiter Start: 02-06-2025 End: 02-08-2025 Refill Barbara Peters 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: [facility] Comment on above: Essential (primary) hypertension Start: 01-27-2025 End: 01-27-2025 Transitional care manage srvc 14 day discharge Barbara Peters 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: [facility] Comment on above: 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); Hiatal hernia; Obstructive sleep apnea Start: 01-27-2025 End: 01-27-2025 ambulatory [facility] Start: 01-26-2025 End: 01-26-2025 Office outpatient new 45 minutes [facility] 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: [facility] Comment on above: LILO (obstructive sle ep apnea) (Primary Dx); BMI 30.0-30.9,adult; Obesity (BMI 30-39.9); Difficulty with CPAP use Start: 01-26-2025 End: 01-26-2025 ambulatory [facility] Start: 01-17-2025 End: 01-18-2025 ambulatory [facility] Start: 01-13-2025 End: 01-13-2025 Office outpatient new 30 minutes Radha Kahn PA Work Phone: [facility] Comment on above: Thoracic spondylosis without myelopathy (Primary Dx) Start: 01-13-2025 End: 01-13-2025 ambulatory [facility] Delio [facility] Start: 12-31-2024 End: 12-31-2024 ambulatory [facility] Start: 12-30-2024 End: 12-30-2024 Office outpatient visit 15 minutes [facility] 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: [facility] Comment on above: Mid back pain on lef t side (Primary Dx); Neck pain Start: 12-30-2024 End: 12-30-2024 ambulatory [facility] Start: 12-13-2024 End: 12-13-2024 ambulatory Thom España [facility] Work Phone: Start: 12-13-2024 End: 12-13-2024 Departed Referred Thom España DO [facility] Start: 12-08-2024 End: 12-08-2024 Office outpatient visit 15 minutes Toni Bansal MD Work Phone: [facility] Comment on above: Chronic ethmoidal si nusitis (Primary Dx); Decreased sense of smell; Nasal polyp Start: 12-08-2024 End: 12-08-2024 ambulatory TONI BANSAL [facility] Start: 12-04-2024 End: 12-07-2024 Refill Barbara L Fran 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: [facility] Comment on above: Migraine without aur a, not intractable, without status migrainosus Start: 12-02-2024 End: 12-02-2024 ambulatory [facility] Start: 11-22-2024 End: 11-22-2024 Orders Only Barbara L Fran 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: [facility] Comment on above: Encounter for screen ing mammogram for malignant neoplasm of breast (Primary Dx) Start: 10-20-2024 End: 10-20-2024 Evaluation and management of inpatient MARIUSZ Renetta [facility] Start: 10-19-2024 End: 10-19-2024 ambulatory [facility] Pat Phone Call Provider 1 [facility] - Pre Admit Start: 10-19-2024 End: 10-19-2024 ambulatory [facility] Start: 09-09-2024 End: 09-13-2024 Refill Barbara L Fran 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: [facility] Comment on above: Allergic rhinitis, u nspecified Start: 08-11-2024 End: 08-11-2024 Postop follow up visit related to original px Toni Bansal MD Work Phone: [facility] [place] Comment on above: Chronic ethmoidal si nusitis (Primary Dx); Decreased sense of smell Start: 08-11-2024 End: 08-11-[address] [facility] Start: 08-03-2024 End: 08-04-2024 Telephone encounter Fatuma Herr CMA [facility] Start: 08-02-2024 End: 08-02-2024 Telephone encounter Annetta Trujillo MD Work Phone: [facility] Start: 07-28-2024 End: 08-01-2024 Clinical Support [facility] 1 [facility] Comment on above: LILO (obstructive sle ep apnea) Start: 07-07-2024 End: 07-07-2024 Telephone encounter Barbara Peters 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: [facility] Comment on above: Sleep Lab (HST) Start: 06-30-2024 End: 06-30-2024 Postop follow up visit related to original px Toni Bansal MD Work Phone: [facility] [place] Comment on above: Chronic ethmoidal si nusitis (Primary Dx); Nasal polyp; Nasal congestion with rhinorrhea Start: 06-30-2024 End: 06-30-[address] [facility] Start: 06-29-2024 End: 07-02-2024 Telephone encounter Barbara Peters 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 Start: 06-24-2024 End: 06-24-2024 Office outpatient visit 15 minutes Barbara Peters 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 Comment on above: LILO (obstructive sle ep apnea) (Primary Dx); Influenza vaccination administered at current visit; Class 1 obesity due to excess calories with serious comorbidity and body mass index (BMI) of 33.0 to 33.9 in adult Start: 06-24-2024 End: 06-24-2024 ambulatory BARBARA PETERS [facility] Start: 06-23-2024 End: 06-23-2024 Postop follow up visit related to original px Toni Bansal MD Work Phone: [facility] [place] Comment on above: Chronic ethmoidal si nusitis (Primary Dx); Nasal polyp; Nasal congestion with rhinorrhea Start: 06-23-2024 End: 06-23-2024 ambulatory GILBY Rajwinder [facility] Start: 06-17-2024 End: 06-17-2024 ambulatory TONI Rajwinder [facility] Start: 06-17-2024 End: 06-17-2024 Subsequent hospital visit by physician Toni Bansal MD Work Phone: [facility] Comment on above: Chronic ethmoidal si nusitis (Primary Dx); Surgery, elective; HTN (hypertension), benign; Deviated nasal septum Start: 06-10-2024 End: 06-10-2024 Orders Only Barbara Renetta Fran 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: [facility] Comment on above: Migraine without aur a, not intractable, without status migrainosus Start: 06-04-2024 End: 06-04-2024 [facility] Start: 05-18-2024 End: 05-18-2024 Refill Gera Burciaga DO Work Phone: [facility] Comment on above: Osteoporosis without current pathological fracture, unspecified osteoporosis type Start: 05-06-2024 End: 05-06-2024 ambulatory BARBARA L [facility] Start: 05-06-2024 Encounter for genera l adult medical examination without abnormal findings [facility] Start: 05-06-2024 End: 05-06-2024 Patient encounter status Barbara Renetta Fran 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: [email or web address] Work Phone: Start: 05-06-2024 End: 05-06-2024 Periodic preventive med est patient 40-64yrs Barbara Peters 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: [facility] Comment on above: Wellness examination (Primary Dx); Class 1 obesity due to excess calories with serious comorbidity and body mass index (BMI) of 33.0 to 33.9 in adult; LILO (obstructive sleep apnea); Encounter for screening colonoscopy; History of colon polyps Start: 05-06-2024 End: 05-06-2024 ambulatory [facility] Start: 05-06-2024 Encounter for [facility] adult medical examination without abnormal findings [facility] Start: 04-01-2024 End: 04-01-2024 Office outpatient visit 15 minutes [facility] 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: [facility] Medicine Comment on above: Class 1 obesity due to excess calories with serious comorbidity and body mass index (BMI) of 31.0 to 31.9 in adult (Primary Dx); Class 1 obesity due to excess calories with serious comorbidity and body mass index (BMI) of 33.0 to 33.9 in adult; LILO (obstructive sleep apnea) Start: 04-01-2024 End: 04-01-2024 ambulatory [facility] Start: 03-11-2024 End: 03-11-2024 ambulatory FLORINDA PATRICIA Facility:[facility] Start: 03-11-2024 End: 03-11-2024 Patient encounter procedure FLORINDA PATRICIA [facility] Start: 03-10-2024 End: 03-10-2024 ambulatory Nohemi Garcia Facility:[facility] Start: 03-10-2024 End: 03-10-2024 Patient encounter procedure Nohemi Garcia [facility] Start: 03-05-2024 End: 03-05-2024 Office outpatient visit 15 minutes [facility] 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: [facility] Comment on above: Essential hypertensi on (Primary Dx); Nasal polyp; Class 1 obesity due to excess calories with serious comorbidity and body mass index (BMI) of 33.0 to 33.9 in adult; Moderate persistent asthma without complication Start: 03-05-2024 End: 03-05-2024 ambulatory BARBARA PETERS [facility] Start: 03-04-2024 End: 03-04-[address] [facility] Start: 02-25-2024 End: 02-25-2024 ambulatory ANNIE MENDOZAMIS Not Available Start: 02-10-2024 End: 02-11-2024 ambulatory MANJU SOLO Facility:[facility] Start: 02-10-2024 End: 02-10-2024 Patient encounter procedure Annie Nicole [facility] Start: 02-05-2024 End: 02-06-2024 Refill Barbara Peters 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: [facility] Comment on above: Essential (primary) hypertension Start: 02-03-2024 End: 02-03-2024 ambulatory Justin YI Facility:[id number] Start: 01-28-2024 End: 01-28-2024 Office outpatient visit 25 minutes Barbara Pteers 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: [facility] Comment on above: Class 1 obesity due to excess calories without serious comorbidity with body mass index (BMI) of 33.0 to 33.9 in adult (Primary Dx); Graves' disease; Essential hypertension; Moderate persistent asthma without complication; Gastroesophageal reflux disease, unspecified whether esophagitis present Start: 01-12-2024 End: 01-12-2024 ambulatory ANNIE MENDOZAMIS Not Available Start: 12-29-2023 End: 12-29-2023 ambulatory [facility] Work Phone: Start: 12-29-2023 End: 12-29-2023 Patient encounter procedure [facility] Work Phone: Start: 12-17-2023 Refill Daljit Argueta INSPECTOR-IAP DISPLAYS ANALYST Work Phone: [facility] Comment on above: Migraine without aur a, not intractable, without status migrainosus Allergic rhinitis, u nspecified Start: 12-01-2023 End: 12-01-2023 ambulatory TYLER E RAMBASEK Not Available Start: 11-25-2023 End: 11-25-2023 Patient encounter procedure FLORINDA PATRICIA [facility] Start: 11-18-2023 End: 11-18-2023 Patient encounter procedure FLORINDA PATRICIA [facility] Start: 11-07-2023 Orders Only Barbara Peters 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: [facility] Comment on above: Abnormal mammogram o f left breast (Primary Dx) Start: 11-07-2023 Refill Barbara Jackson Fran 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: [facility] Start: 10-20-2023 End: 10-20-2023 ambulatory TYLER E RAMBASEK Not Available Start: 10-07-2023 Orders Only Barbara Jackson Fran 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: [facility] Comment on above: Encounter for screen ing mammogram for malignant neoplasm of breast (Primary Dx) Start: 09-29-2023 End: 09-29-2023 ambulatory TYLER E RAMBASEK Not Available Start: 09-17-2023 Refill Barbara L Fran 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: [facility] Start: 06-15-2023 End: 06-15-2023 ambulatory Maria Isabel Hadley Other [employer] Other Start: 06-15-2023 Office outpatient vi sit 15 minutes Maria Isabel Leonie [facility] Start: 06-02-2023 End: 06-02-2023 ambulatory Maria Isabel Leonie Other [employer] Other Start: 06-02-2023 Office outpatient vi sit 15 minutes Maria Isabel Lenoie [facility] Start: 12-23-2022 End: 12-23-2022 ambulatory Caitlyn Long Other [employer] Other Start: 12-23-2022 Office outpatient vi sit 15 minutes [facility] Start: 12-17-2022 End: 12-18-[address] GERA BURCIAGA Facility: Start: 11-25-2022 End: 11-25-2022 Emergency department patient visit Mariusz Ro [facility] Start: 11-20-2022 End: 11-20-2022 ambulatory Maria Isabel Leonie Other [employer] Other Start: 11-20-2022 Office outpatient vi sit 15 minutes Maria Isabel Leonie [facility] Start: 11-19-2022 End: 11-19-2022 Lab Drop off BARBARA PETERS [facility] Start: 11-19-2022 End: 11-19-2022 Patient encounter procedure FLORINDA PATRICIA [facility] Lisa Start: 09-11-2022 End: 09-12-[address] JUSTIN YI . Facility: Start: 08-22-2022 End: 08-22-2022 ambulatory DO Gera Burciaga Work Phone: [facility] Work Phone: Start: 08-22-2022 End: 08-22-2022 Patient encounter procedure DO Gera Burciaga Work Phone: [facility] Start: 06-24-2022 Office outpatient ne w 30 minutes Cait[facility] Start: 06-24-2022 End: 06-24-2022 ambulatory DO Gera Burciaga Work Phone: [facility] [employer] Other Start: 06-24-2022 End: 06-24-2022 Patient encounter procedure DO Gera Burciaga Work Phone: [facility] Start: 04-23-2022 End: 04-24-[address] GERA BURCIAGA Facility:[facility] Start: 04-19-2022 End: 04-19-2022 Patient encounter procedure Justin YI [facility] Start: 03-30-2022 End: 03-31-2022 Emergency department patient visit Iraida Knox [facility] Start: 02-28-2022 End: [address] ARVIN MONTEIRO Facility:[facility] Start: 02-27-2022 End: 02-27-[address] JHONY ESPINOSA . Facility:[facility] Start: 02-04-2022 End: 02-04-2022 Patient encounter procedure Misael VINES [facility] Start: 01-30-2022 End: 01-30-2022 Patient encounter procedure Nohemi Garcia [facility] Start: 01-24-2022 ambulatory Facility:[id number] Start: 01-24-2022 End: 01-24-2022 Observation Bert MENARD [facility] Start: 01-14-2022 End: 01-14-2022 ambulatory Maria Isabel Leonie Other [facility] [employer] [facility] Other Start: 01-14-2022 Office outpatient vi sit 15 minutes Maria Isabel Garciamond [facility] Start: 12-07-2021 End: 12-07-2021 Patient encounter procedure BARBARA PETERS [facility] Start: 07-12-2021 Office outpatient vi sit 15 minutes Kristina Donald [facility] Procedures Date Procedure Procedure Detail Performing Clinician Start: 01-27-2025 Adult depression scr eening assessment Joannajosep Valdespenny 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: Start: 12-30-2024 Adult depression scr eening assessment Barbara Peters 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: Start: 12-02-2024 Mammography Barbara Vishal 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: Start: 10-20-2024 Colonoscopy Toni bartholomew MD Work Phone: Start: 08-11-2024 Follow-up visit Follow-up TONI BANSAL Start: 06-24-2024 Adult depression scr eening assessment Barbara Peters 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: Start: 04-01-2024 Adult depression scr eening assessment Barbara Peters 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: Start: 03-05-2024 Adult depression scr eening assessment Barbara Fran 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: Start: 02-19-2024 Cystoscopic removal of ureteric stent FLORINDA PATRICIA Start: 11-05-2023 Mammography Barbara Mcknightu 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: Start: 07-24-2023 Adult depression scr eening assessment Barbara Peters 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: Start: 11-02-2022 Mammography Barbara Rodgers ch 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: Start: 01-24-2022 Cystoscopy Bert Leone [...] Activity Detail Author Start: 10-20-2034 Screening for malignant neoplasm of colon [facility] Start: 09-13-2034 DTaP,Tdap and Td Vaccines (3 - Td or Tdap) DTaP,Tdap and Td Vaccines (3 - Td or Tdap) [facility] Start: 09-13-2034 DTaP/Tdap/Td Vaccines (3 - Td or Tdap) DTaP/Tdap/Td Vaccines (3 - Td or Tdap) [facility] Start: 10-14-2029 Screening for malignant neoplasm of colon [facility] Start: 01-27-2026 Adult BMI Screening Adult BMI Screening [facility] Start: 01-27-2026 Depression Screening Depression Screening [facility] Start: 01-27-2026 Tobacco Screening Tobacco Screening [facility] Start: 01-13-2026 Adult BMI Screening Adult BMI Screening [facility] Start: 01-13-2026 Tobacco Screening Tobacco Screening [facility] Start: 12-30-2025 Depression Screening Depression Screening [facility] Start: 12-02-2025 Adult BMI Screening Adult BMI Screening [facility] Start: 12-02-2025 Screening for malignant neoplasm of breast Mammogram [facility] Start: 10-20-2025 Adult BMI Screening Adult BMI Screening [facility] Start: 10-20-2025 Tobacco Screening Tobacco Screening [facility] Start: 08-31-2025 End: 08-31-2025 Patient encounter procedure 08/31/2025 2:50 PM EST Office Visit [facility] [address] [place] [address] Manju Solo MD [address] [place] [address] [facility] Start: 07-28-2025 Adult BMI Screening Adult BMI Screening [facility] Start: 06-24-2025 Adult BMI Screening Adult BMI Screening [facility] Start: 06-24-2025 Depression Screening Depression Screening [facility] Start: 06-24-2025 Tobacco Screening Tobacco Screening [facility] Start: 06-08-2025 End: 06-08-2025 Patient encounter procedure 06/08/2025 9:15 AM EDT Office Visit [facility] [address] [place] [address] Toni Bansal MD [address] [facility] [address] [place] [address] [facility] [place] Start: 05-29-2025 Screening for osteoporosis Bone Density Scan [facility] Start: 05-16-2025 Influenza vaccination Influenza Vaccine [facility] Start: 05-12-2025 End: 05-12-2025 Patient encounter procedure 05/12/2025 4:00 PM EDT [facility] [address] [place] [address] Barbara Peters, 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 [employer]RICUL[employer] [address] [place] [address] [facility] Start: 05-06-2025 Adult BMI Screening Adult BMI Screening [facility] Start: 05-06-2025 Tobacco Screening Tobacco Screening [facility] Start: 04-01-2025 Adult BMI Screening Adult BMI Screening [facility] Start: 04-01-2025 Depression Screening Depression Screening [facility] Start: 04-01-2025 Tobacco Screening Tobacco Screening [facility] Start: 03-08-2025 End: 03-08-2025 Patient encounter procedure 03/08/2025 12:30 PM EDT Office Visit [facility] [address] [place] [address] Annetta Trujillo MD [address] [address] [place] [address] [facility] Start: 03-05-2025 Adult BMI Screening Adult BMI Screening [facility] Start: 03-05-2025 Depression Screening Depression Screening [facility] Start: 03-05-2025 Tobacco Screening Tobacco Screening [facility] Start: 03-02-2025 End: 03-02-2026 Hepatic function 2000 panel - Serum or Plasma Hepatic function panel Lab Routine Graves' disease Expected: 03/02/2025 (Approximate), Expires: 03/02/2026 [facility] Comment on above: Expected: 03/02/2025 (Approximate), Expi res: 03/02/2026 Start: 03-02-2025 End: 03-02-2026 Thyrotropin [Units/volume] in Serum or Plasma TSH Lab Routine Graves' disease Expected: 03/02/2025 (Approximate), Expires: 03/02/2026 [facility] Comment on above: Expected: 03/02/2025 (Approximate), Expi res: 03/02/2026 Start: 03-02-2025 End: 03-02-2026 Thyroxine (T4) free [Mass/volume] in Serum or Plasma T4, free Lab Routine Graves' disease Expected: 03/02/2025 (Approximate), Expires: 03/02/2026 [facility] Comment on above: Expected: 03/02/2025 (Approximate), Expi res: 03/02/2026 Start: 03-02-2025 End: 03-02-2026 Triiodothyronine (T3) Free [Mass/volume] in Serum or Plasma T3, free Lab Routine Graves' disease Expected: 03/02/2025 (Approximate), Expires: 03/02/2026 [facility] Work Phone: Comment on above: Expected: 03/02/2025 (Approximate), Expi res: 03/02/2026 Start: 03-02-2025 End: 03-02-2025 Patient encounter procedure 03/02/2025 9:00 AM EDT Office Visit [facility] [address] [place] [address] Manju Solo MD [address] [place] [address] Arrived [facility] Comment on above: Arrived Start: 01-27-2025 Adult BMI Screening Adult BMI Screening [facility] Start: 01-26-2025 End: 01-26-2025 Patient encounter procedure 01/26/2025 3:00 PM EDT Office Visit [facility] [address] [place] [address] Joanna Palacios, 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 CURRICULUM [address] [place] [address], [address] [address] [facility] Start: 12-30-2024 End: 12-30-2025 XR Cervical spine Views X-ray spine cervical 3 views or less Imaging Routine Neck pain Expected: 12/30/2024, Expires: 12/30/2025 [facility] Comment on above: Expected: 12/30/2024, Expires: Start: 12-30-2024 End: 12-30-2025 XR Thoracic spine 3 Views X-ray spine thoracic 3 views Imaging Routine Mid back pain on left side Expected: 12/30/2024, Expires: 12/30/2025 [facility] Work Phone: Comment on above: Expected: 12/30/2024, Expires: Start: 12-13-2024 Bacteria identified in Urine by Culture Urine Culture [facility] Start: 12-13-2024 Urine culture [facility] Start: 12-08-2024 End: 12-08-2024 Patient encounter procedure 12/08/2024 9:30 AM EDT Office Visit [facility] [place] [facility] [place] [address] [place] [address] Toni Bansal MD [address] [facility] [address] [place], [place] [id number] [facility] Start: 11-22-2024 End: 11-22-2025 DBT Breast - bilateral screening Mammography screening bilateral with CAD Imaging Routine Encounter for screening mammogram for malignant neoplasm of breast Expected: 11/22/2024, Expires: 11/22/2025 [facility] Work Phone: Comment on above: Expected: 11/22/2024, Expires: Start: 11-05-2024 Adult BMI Screening Adult BMI Screening [facility] Start: 11-05-2024 Screening for malignant neoplasm of breast Mammogram [facility] Start: 10-27-2024 End: 10-27-2024 Patient encounter procedure 10/27/2024 3:15 PM EST Office Visit [facility] [address] [facility] [place] [address] Joanna Palacios, 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 [employer]RICULUM [address], [address] [place] [address] [facility] Start: 10-20-2024 End: 10-20-2024 Admission to same day surgery center 10/20/2024 10:00 AM EST - 10/20/2024 11:00 AM EST Surgery [facility] [address] [place] [address] Mariusz Simon, DO [address] [place] [address] COLONOSCOPY DIAGNOSTIC / SCREENING [42768 (CPT )] [facility] Comment on above: COLONOSCOPY DIAGNOSTIC / SCREENING [4537 8 (CPT )] Start: 10-20-2024 Subsequent hospital visit by physician 10/20/2024 10:00 AM EST Hospital Encounter [facility] [address] [place] [id number] Mariusz Simon, DO [address] [place] [address] [facility] Start: 10-20-2024 End: 10-20-2024 [facility] Start: 10-19-2024 End: 10-19-2024 ambulatory 10/19/2024 4:10 PM EST Support Visit [facility] Pre Ad[facility] [address] [place] [id number] [facility] Start: 08-11-2024 End: 08-11-2024 Patient encounter procedure 08/11/2024 9:45 AM EST Office Visit [facility] [place] [facility] [place] [address] [place] [phone] Toni Bansal MD [address] [facility] [address] [place] [address] [facility] Start: 08-10-2024 End: 08-10-2024 Admission to same day surgery center 08/10/2024 9:00 AM EST - 08/10/2024 10:00 AM EST Surgery [facility] [address] [place] [address] Mariusz Simon, DO [address] [facility] [address] COLONOSCOPY DIAGNOSTIC / SCREENING [49489 (CPT )] [facility] Comment on above: COLONOSCOPY DIAGNOSTIC / SCREENING [4537 8 (CPT )] Start: 08-10-2024 End: 08-10-2024 Colonoscopy flx dx w/collj spec when [facility] COLONOSCOPY DIAGNOSTIC / SCREENING History of colon polyps 08/10/2024 9:00 AM EST [facility] Start: 08-10-2024 Subsequent hospital visit by physician [facility] Comment on above: Personal history of adenomatous and serr ated colon polyps (Primary Dx) Start: 08-09-2024 End: 08-09-2024 ambulatory 08/09/2024 4:20 PM EST Support Visit [facility] [address] [place] [address] [facility] Start: 07-24-2024 Adult BMI Screening Adult BMI Screening [facility] Start: 07-24-2024 Depression Screening Depression Screening [facility] Start: 07-24-2024 Tobacco Screening Tobacco Screening [facility] Start: 06-30-2024 End: 06-30-2024 Patient encounter procedure 06/30/2024 10:00 AM EDT Office Visit [facility] [place] [address] [place] [phone] Toni Bansal MD [address] [facility] [address] [place] [address] [facility] [place] Start: 06-24-2024 End: 06-24-2024 Patient encounter procedure 06/24/2024 1:40 PM EDT Office Visit [facility] [address] [place] [phone] Barbara Peters, 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 [employer]RICUL[employer] [address] [place] [address] [facility] Start: 06-23-2024 End: 06-23-2024 Patient encounter procedure 06/23/2024 10:30 AM EDT Office Visit [facility] [place] [place] [address] [place] [address] Toni Bansal MD [address] [facility] [address] [place] [address] [facility] [place] [facility] [place] Start: 06-17-2024 End: 06-17-2024 Nasal/sinus ndsc surg [...] [facility] Start: 05-16-2024 COVID-19 Vaccine () COVID-19 Vaccine () [facility] Start: 05-16-2024 COVID-19 Vaccine () COVID-19 Vaccine () [facility] Start: 05-16-[address] [facility] Start: 05-07-2024 End: 05-07-2024 Patient encounter procedure 05/07/2024 8:40 AM EDT [facility] [address] [place] [address] Barbara Peters, 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 [employer]RIC[employer] [address] [place] [address] [facility] Start: 05-06-2024 End: 05-06-2024 Patient encounter procedure 05/06/2024 1:00 PM EDT Office Visit [facility] [address] [place] [address] Barbara Peters, 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 [employer]RIC[employer] [address] [place] [address] [facility] Start: 04-15-2024 Adult BMI Follow Up Plan Adult BMI Follow Up Plan [facility] Comment on above: Postponed from 1980 (Not Indicated ) Start: 04-08-2024 DTaP,Tdap and Td Vaccines (2 - Td or Tdap) DTaP,Tdap and Td Vaccines (2 - Td or Tdap) [facility] Start: 04-08-2024 DTaP/Tdap/Td Vaccines (2 - Td or Tdap) DTaP/Tdap/Td Vaccines (2 - Td or Tdap) [facility] Start: 03-05-2024 End: 03-05-2024 Patient encounter procedure 03/05/2024 8:40 AM EDT [facility] [address] [place] [address] Barbara Peters, 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 [employer]RIC[employer] [address] [place] [address] [facility] Start: 01-28-2024 End: 01-28-2024 Patient encounter procedure 01/28/2024 4:00 PM EDT Office Visit [facility] [address] [place] [address] Barbara Peters, 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 [employer]RIC[employer]UM [address] [place] [address] [facility] Start: 01-22-2024 End: 01-22-2024 Patient encounter procedure 01/22/2024 4:00 PM EDT Office Visit [facility] [address] [place] [address] Barbara Peters, 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 [employer]RIC[employer] [address] [place] [address] [facility] Start: 11-18-2023 End: 11-18-2023 Patient encounter procedure 11/18/2023 11:00 AM EST Appointment [facility] [address] [place] [address] [facility] Start: 11-07-2023 End: 11-07-2024 MG Breast duct - left Views W contrast intra duct Mammography diagnostic unilateral left with CAD Imaging Routine Abnormal mammogram of left breast Expected: 11/07/2023, Expires: 11/07/2024 [facility] Work Phone: Comment on above: Expected: 11/07/2023, Expires: Start: 11-07-2023 End: 11-07-2024 US Breast - left limited Ultrasound breast limited left Imaging Routine Abnormal mammogram of left breast Expected: 11/07/2023, Expires: 11/07/2024 [facility] [employer] [facility] Comment on above: Expected: 11/07/2023, Expires: 5 Start: 11-05-2023 End: 11-05-2023 Patient encounter procedure 11/05/2023 2:45 PM EST Appointment [facility] - Mammogram DEXA [address] [place] [id number] [facility] - Mammogram DEXA Start: 11-02-2023 Screening for malignant neoplasm of breast Mammogram [facility] Start: 10-07-2023 End: 10-07-2024 DBT Breast - bilateral screening Mammography screening bilateral with CAD Imaging Routine Encounter for screening mammogram for malignant neoplasm of breast Expected: 10/07/2023, Expires: 10/07/2024 [facility] Work Phone: Comment on above: Expected: 10/07/2023, Expires: 5 Start: 2022 RSV High Risk: (Elderly (60+) or Population) (1 - Risk 60-74 years 1-dose series) RSV High Risk: (Elderly (60+) or Population) (1 - Risk 60-74 years 1-dose series) [facility] Start: 2022 RSV patients and/or patients aged 60+ years (1 - 1-dose 60+ series) RSV patients and/or patients aged 60+ years (1 - 1-dose 60+ series) [facility] Start: 1992 Screening for malignant neoplasm of cervix [facility] Start: 1983 Screening for malignant neoplasm of cervix [facility] Start: 1980 Adult BMI Follow Up Plan Adult BMI Follow Up Plan [facility] Start: 1980 Diabetes mellitus screening Diabetes Screening [facility] Start: 1980 Hepatitis C screening Hepatitis C Screening [facility] Start: 1963 MMR Vaccines (1 of 1 - Standard series) MMR Vaccines (1 of 1 - Standard series) [facility] Start: 1962 HIV screening HIV Screening [facility] Start: 1962 Lipid panel Lipid Panel [facility] Start: 1962 Screening for malignant neoplasm of colon [facility] Start: 1962 Thyroid stimulating hormone measurement TSH Level [facility] Start: 1962 Yearly Adult Physical Yearly Adult Physical [facility] Colonoscopy flx dx w/collj spec when [...] Care Routine Continuous until discontinued starting 06/17/2024 [facility] Service Area Work Phone: Comment on above: Continuous until discontinued starting 1 End: 06-24-2025 Home sleep study Home sleep study Sleep Center Routine LILO (obstructive sleep apnea) 1 Occurrences starting 06/24/2024 until 06/24/2025 [facility] Work Phone: Comment on above: 1 Occurrences starting 06/24/2024 until 06/24/2025 Surgical pathology study Surgica l Pathology Exam Pathology and Cytology Timed Deviated nasal septum Chronic ethmoidal sinusitis Release Upon Ordering for 1 Occurrences starting 06/17/2024 [facility] Service Area Work Phone: Comment on above: Release Upon Ordering for 1 Occurrences starting 06/17/2024 Immunizations Immunization Date Immunization Notes Care Provider [facility] 06-24-2024 influenza, seasonal, injectable, preservative free Barbara Peters 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: [email or web address] 06-24-2024 Immunization, In Clinic,; Translations: [Drug or medicament (substance)] Barbara Peters 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: [facility] 06-24-2024 influenza virus vaccine, unspecified formulation Barbara Peters 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: [facility] 08-06-2023 zoster vaccine recombinant Abrbara Fran 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: [facility] 06-19-2023 Influenza Vaccine, Quadrivalent, Adjuvanted Barbara Fran 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: [facility] 06-19-2023 influenza virus vaccine, unspecified formulation FLORINDA KADE [facility] 06-19-2023 influenza, injectabl e, quadrivalent, preservative free Barbara Fran 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: [facility] 04-11-2023 Pneumococcal Conjuga te 20-valent Barbara Fran 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: [facility] 04-11-2023 zoster vaccine recombinant Barbara Fran 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: [facility] 06-27-2022 influenza virus vaccine, unspecified formulation FLORINDA KADE [facility] 06-27-2022 influenza, injectabl e, quadrivalent, preservative free Barbara Fran 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: [facility] 06-27-2022 influenza, live, intranasal, quadrivalent Barbara Fran 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 Other 06-22-2019 Toradol per 15 mg Kristina Shabana Other 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: [facility] 05-10-2018 influenza, injectabl e, quadrivalent, contains preservative Barbara Fran 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: [facility] 05-09-2018 influenza virus vaccine, unspecified formulation FLORINDA KADE [facility] 05-09-2018 influenza, injectabl e, quadrivalent, preservative free Barbara Fran 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 Other 07-10-2016 PROMETHAZINE (Phenergan) up to 50 mg Kristina Shabana Other 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: [facility] 04-08-2014 tetanus toxoid, reduced diphtheria toxoid, and acellular pertussis vaccine, adsorbed Barbara Fran 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: [facility] 09-06-2013 influenza nasal, unspecified formulation Barbara Fran 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 [id number] 2018 Managed Care Other (unspecified) FRONTPATH [id number]. [id number] 2018 Unknown [id number]. 1.13.647. 2.7.3.851088.315 1962 Unknown [id number] 2.16.840.1.608372.3.579. 2.356 1962 Unknown [id number] 2.16.840.1.432144.3.579. 2.593 1962 Unknown [id number] 2.16.840.1.432808.3.579. 2.593 1962 Unknown [id number] 2.16.840.1.780058.3.579. 2.593 1962 Unknown [id number] 2.16.840.1.432213.3.579. 2.593 1962 Unknown [id number] 2.16.840.1.978300.3.579. 2.593 1962 Unknown [id number] 2.16.840.1.469659.3.579. 2.1259 1962 Unknown [id number] 2.16.840.1.191501.3.579. 2.1259 1962 Unknown [id number] 2.16.840.1.589346.3.579. 2.1259 1962 Unknown [id number] 2.16.840.1.729400.3.579. 2.1259 1962 Unknown [id number] 2.16.840.1.185597.3.579. 2.1259 1962 Unknown [id number] 2.16.840.1.169078.3.579. 2.727 1962 Unknown [id number] 2.16.840.1.942927.3.579. 2.727 1962 Unknown [id number] 2.16.840.1.500994.3.579. 2.727 1962 Unknown [id number] 2.16.840.1.923291.3.579. 2.1286 1962 Unknown [id number] 2.16.840.1.545584.3.579. 2.1245 1962 Unknown [id number] 2.16.840.1.325549.3.579. 2.1245 1962 Unknown [id number] 2.16.840.1.042772.3.579. 2.1244 1962 Unknown [id number] 2.16.840.1.024445.3.579. 2.1244 1962 Unknown [id number] 2.16.840.1.759476.3.579. 2.1244 1962 Unknown [id number] 2.16.840.1.055017.3.579. 2.1243 1962 Unknown [id number] 2.16.840.1.996459.3.579. 2.1243 1962 Unknown [id number] 2.16.840.1.558680.3.579. 2.1285 1962 Unknown [id number] 2.16.840.1.353773.3.579. 2.1285 1962 Unknown [id number] 2.16.840.1.694421.3.579. 2.1285 1962 Unknown [id number] 2.16.840.1.912084.3.579. 2.1285 1962 Unknown [id number] 2.16.840.1.306192.3.579. 2.1285 1962 Unknown [id number] 2.16.840.1.207114.3.579. 2.1285 1962 Unknown [id number] 2.16.840.1.092214.3.579. 2.1285 1962 Unknown [id number] 2.16.840.1.142987.3.579. 2.1285 1962 Unknown [id number] 2.16.840.1.604493.3.579. 2.1285 1962 Unknown [id number] 2.16.840.1.558882.3.579. 2.1285 1962 Unknown [id number] 2.16.840.1.619646.3.579. 2.1285 1962 Unknown [id number] 2.16.840.1.378495.3.579. 2.1285 1962 Unknown [id number] 2.16.840.1.816735.3.579. 2.1285 1962 Unknown [id number] 2.16.840.1.069135.3.579. 2.1286 1962 Unknown [id number] 2.16.840.1.175499.3.579. 2.1286 1962 Unknown [id number] 2.16.840.1.391294.3.579. 2.727 1959 Unknown [id number] 2.16.840.1.831941.19 Unknown [id number] 2.16.840.1.337807.3.579. 2.531 Social History Date Type Detail Facility Start: 01-30-2021 End: 02-25-2024 Tobacco smoking status Ex-smoker (finding) [facility] Other Start: 02-25-2024 End: 05-31-2024 Sex Assigned At Female [facility] Other Start: 1960 Sex Assigned At Female [facility] Start: 10-11-2018 End: 11-19-2022 Tobacco smoking status Never smoked tobacco (finding) [facility] Tobacco smoking status Never [facility] Start: 09-15-1986 End: 09-15-2004 History of tobacco use Current smoker [facility] Start: 09-15-1986 End: 09-15-2004 History of tobacco use Cigarette Smoker [facility] Work Phone: Start: 02-25-2024 End: 03-04-2024 Tobacco use and exposure Smokeless tobacco non-user [facility] Start: 06-17-2024 End: 06-23-2024 Alcoholic beverage intake Lifetime non-drinker (finding) [facility] Work Phone: Start: 02-25-2024 End: 05-31-2024 History of Social function [facility] Start: 1960 Sex assigned at Not on file [facility] Start: 06-07-2024 End: 12-08-2024 Exposure to SARS-CoV-2 (event) Not sure [facility] Start: 01-05-2024 Gender identity Identifies as female gender (finding) [facility] Work Phone: Start: 06-18-2024 Sexual orientation Heterosexual (finding) [facility] Work Phone: Start: 06-30-2024 End: 01-27-2025 Alcoholic beverage intake Ex-drinker (finding) [facility] Start: 06-30-2024 Alcohol Comment occasional [facility] Work Phone: Do you belong to any clubs or organizations such as christianity groups, unions, fraternal [...] [facility] Start: 10-23-2022 Education [facility] Start: 04-20-2015 End: 12-14-2024 Sex Female (finding) [facility] How hard is it for y ou to pay for the very basics like food, housing, medical care, and heating Not very hard [facility] Start: 11-10-2024 Alcoholic beverage intake Current drinker of alcohol (finding) [facility] Start: 01-12-2024 Alcohol Comment Socially [facility] Healthcare Medical Equipment Procedure Code Equipment Code Equipment [...] CYSTOSCOPY RETROGRADE STENT INSERTION Misael VINES MD P 01/24/22 Unknown Ureter R FDA Start: 01-24-2022 CYSTOSCOPY RETROGRADE STENT INSERTION Misael VINES MD 01/24/22 Unknown Ureter R FDA Start: 01-24-2022 CYSTOSCOPY RETROGRADE STENT INSERTION Misael VINES MD P 01/24/22 Unknown Ureter R FDA Start: 01-24-2022 CYSTOSCOPY RETROGRADE STENT INSERTION Misael VINES MD P 01/24/22 Unknown Ureter R FDA Start: 01-24-2022 CYSTOSCOPY RETROGRADE STENT INSERTION Misael VINES MD 01/24/22 Unknown Ureter R FDA Start: 01-24-2022 CYSTOSCOPY RETROGRADE STENT INSERTION Misael VINES MD P 01/24/22 Unknown Ureter R FDA Start: 01-24-2022 CYSTOSCOPY RETROGRADE STENT INSERTION Misael VINES MD 01/24/22 Unknown Ureter R FDA Start: 01-24-2022 CYSTOSCOPY RETROGRADE STENT INSERTION Misael VINES MD P 01/24/22 Unknown Ureter R FDA Start: 01-24-2022 Implant, Propel Contour Sinus - [id number] Start: 06-17-2024 Implant, Propel Contour Sinus - [id number] Start: 06-17-2024 Goals Date Patient Goal Desired Activity /State Personal health goal Comment on above: Formatting of this n ote might be different from the original. Evaluation of progress towards goal: Plans to return home with self care. Functional Status Date Assessment Result Facility 03-11-2024 Functional Status N/A [facility] 11-25-2023 Functional Status N/A [facility] 11-25-2022 Functional Status N/A [facility] 11-19-2022 Functional Status Yes [facility] 04-19-2022 Functional Status N/A [facility] 03-30-2022 Functional Status N/A [facility] Clinical Notes 07-12-2021 to 03-02-2025 Manju Solo MD - 03/02/2025 9:00 AM [facility] 01/27/2025 11:20 AM [facility] Palacios[facility] - 01/26/2025 3:00 PM EDTPatient InstructionsDischarge Instructions Note Date & Type Note Facility 03-02-2025 History of Present illness Narrative Yani [place] is a 65 y.o. female No ref. [...] T4 at 1.5(0.8-1.8), all within normal limits. HFP WNL. Interim History: 02/2021. Follow-up visit of 2021 [...] liver and he send her to a steel handler due to a spongy kidney, Dr. Reddy in [place] and everything has been in good range so far. Interim History: 11/2019 Follow-up visit on 11/29/2019 for hyperthyroidism due to Graves' disease. Labs within normal limits. TSH 4.88, free T4 0.9, and free T3 at 3.85. Liver enzyme much better than before. AST 63, ALT 71, alkaline phosphatase still high, but better than before at 322 with isoenzymes; liver 71%, bone 27%, and intestine 2%. She went to [facility] for evaluation and now she plans to go to see steel handler for another findings during her CT on her kidney. Clinically, she is euthyroid and much better. Interim History 09/2019: Followup visit 09/27/2019 for hyperthyroidism. Thyroid function within normal limits. TSH 3.38, free T4 0.88, free T3 3.32, but incidentally liver enzyme is high, AST 93 (10-42), ALT 145 (10-62), alkaline phosphatase 538 (32-92). With deep questioning, it was found that she has couple years ago, she is saying more than 10 years, they told [...] Thyroid scan and uptake shows 4 hour 15.3%, 24 hour 41%, homogeneous uptake without lesion. Ultrasound shows right lobe 3.5 x 1.8 x 1.5, with 3 nodules, 6 and 4 and 2 mm, left lobe 3.8 x 1.5 x 1.6 cm, with one nodule 5 mm. 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 HPI: 04/02 New patient sent from [facility], Dr. Burciaga office, and for subclinical hyperthyroidism, TSH 0.05, free T4 1.68 (0.8-1.8) back in . Denies any thyroid problem before. No any medication before for thyroid. No family history, and denies a history of steroids, and she was on Coumadin for 5 years, has history of lung [...] Wt 186 lb SpO2 94% BMI 30.95 kg/m Smoking Status Former BSA 1.97 m Physical Exam Constitutional: Appearance: Normal appearance. She [...] months (around 09/01/2025). documented in this encounter [facility] 01-27-2025 History of Present illness Narrative Subjective Patient ID: Yani [place] is a 64 y.o. female. The patient is here today for discharge follow up from hospital. Transition of Care Med Rec completed? Yes Discharged medications: Medications have been reviewed and reconciled with the most recent facility discharge document. HPI Patient was in [facility] from January 17 to January 18 [...] Yani was seen today for tcm from [facility]. Diagnoses and all orders for this [...] device and she is working with her drainage engineer team on this. She should attempt to wear the mask as long as she can per night. She understands the risks of untreated sleep apnea. Patient should follow up when she is due for her wellness or sooner as needed. MALI Espinoza 02/01/25 1340 documented in this encounter [facility] 01-26-2025 History of Present illness Narrative Images [...] (3%)=15.4 events/hour; THADDEUS (4%)=6.7 events/hour; Jerod SpO2=84.0%; Wjabhi=891.0 lbs; BMI=30.7 kg/m2) She denies any dyspnea, fevers, chills, hemoptysis, wheezing, or chest pain. She denies sleepiness while driving. Supplemental O2 use: none Current PAP interface: She uses a Nasal Mask. She does not use a chinstrap. She does use the heated inline humidifier. Cleaning supplies with soap and water. [place] Sleepiness Scale: Sitting and Reading: Slight Chance [...] due to infectious organism 01/17/2025 Pulmonary embolism ([facility]) 2009 Shortness of breath Sinusitis chronic, [...] mL, 3 mL, intravenous, PRN, Mariusz Simon, sodium chloride 0.9 % flush 3 mL, 3 mL, intravenous, Q12H EARL, Mariusz Simon, DO Vitals: 01/26/25 1503 BP: 153/86 Pulse: 90 [...] 20 min Stress: Stress Concern Present (10/23/2022) [place] [employer] - Occupational Stress Questionnaire Feeling of Stress : To some extent Social Connections: Moderately Integrated (10/23/2022) Social Connection and Isolation Panel [NHANES] Frequency of Communication with Friends and Family: More than three times a week Frequency of Social Gatherings with Friends and Family: Twice a week Attends Spiritism Services: More than 4 times per year [...] (3%)=15.4 events/hour; THADDEUS (4%)=6.7 events/hour; Jerod SpO2=84.0%; Ydnpqy=648.0 lbs; BMI=30.7 kg/m2) APAP 7-14 cm H20 [...] not to drive if sleepy, and to ladle puller if sleepiness occurs while driving. Above [...] that have escaped final proofreading. Joanna Palacios [facility] Office: [phone] 12:24 PM on 01/27/2025 CC: MALI ESPINOZA APRN-CNP 01/27/25 1224 documented in this encounter [facility] 01-26-2025 Instructions MALI Sheehan - 01/26/2025 3:00 PM EDT If you re looking for general health and wellness resources, please visit [email or web address] documented in this encounter [facility] 01-13-2025 History of Present illness Narrative [facility] [address] [place] [address] Patient: Yani [place] Sex: female : 1960 Age: 64 y.o. PCP: MALI ESPINOZA 01/13/2025 Yani [place] is here for a(n) [...] Hypertension Hypothyroid Kidney stones 02/02/2024 Pulmonary embolism ([facility]) 2009 Shortness of breath Sinusitis chronic, frontal 02/2024 Sleep apnea Sleep apnea with use of continuous positive airway pressure (CPAP) Thoracic back pain 12/2024 Visual impairment Past Surgical History: Procedure Laterality Date APPENDECTOMY CARDIAC CATHETERIZATION 2009 CHOLECYSTECTOMY COLONOSCOPY DIAGNOSTIC / SCREENING N/A 10/20/2024 Performed by Mariusz Simon DO at [facility] HERNIA REPAIR HYSTERECTOMY 1993 complete [...] 20 min Stress: Stress Concern Present (10/23/2022) [place] [employer] - Occupational Stress Questionnaire Feeling of Stress : To some extent Social Connections: Moderately Integrated (10/23/2022) Social Connection and Isolation Panel [NHANES] Frequency of Communication with Friends and Family: More than three times a week Frequency of Social Gatherings with Friends and Family: Twice a week Attends Spiritism Services: More than 4 times per year [...] explain the condition. OARRS: Reviewed. Scribe Statement: INina CNA, scribed for and in the presence of REJI RAMIREZ who performed the above service. Nina Wells CNA 01/13/25 1207 REJI Ramirez 01/13/25 1431 documented in this encounter [employer] 12-30-2024 History of Present illness Narrative Images from the original note were not included. [address] [facility] [id number] Patient: Yani [place] Date of : 1960 Encounter Date: 12/30/2024 History of Present Illness: The patient is a 64 y.o. female, an established patient, and is here for Chief Complaint Patient presents with back pain/ was at [facility] . HPI Patient is here for an ER follow-up from the [facility] on December 13 2024 for thoracic [...] on left side - Primary Relevant Orders [facility] [place], [place] X-ray spine thoracic 3 views Neck [...] Asthma Hypertension Kidney stones 02/02/2024 Pulmonary embolism ([facility]) Shortness of breath Sinusitis chronic, frontal 02/2024 Visual impairment Past Surgical History: Procedure Laterality Date APPENDECTOMY CHOLECYSTECTOMY COLONOSCOPY DIAGNOSTIC / SCREENING N/A 10/20/2024 Performed by Mariusz Simon DO at [facility] HIATAL HERNIA REPAIR HYSTERECTOMY 1993 complete [...] flush 3 mL 3 mL intravenous Q12H [facility] Mariusz Simon DO (All medications reviewed and updated by provider since last office visit or hospitalization) Allergies: Patient has no known allergies. Tobacco History: Social History Tobacco Use Smoking Status Former Current packs/day: 0.00 Average packs/day: 0.2 packs/day for 18.0 years (2.7 ttl pk-yrs) Types: Cigarettes Start date: 1986 Quit date: 2005 Years since quittin.3 Smokeless Tobacco Never (If [...] seen today for back pain/ was at [facility]. Diagnoses and all orders for this visit: Mid back pain on left side - [facility] - [place], [place]; Future - X-ray spine thoracic 3 [...] She may continue the Tylenol and Motrin nyru-sjz-dqrbtus and we will add a pain management referral. Patient declined physical therapy at this time. Patient was advised to use her CPAP mask when she is taking muscle relaxants especially. She states she is not the best at wearing her CPAP every night. Follow-up for routine visit when due. MALI ESPINOZA APRN-CNP 12/30/24 1234 documented in this encounter [facility] 12-08-2024 History of Present illness Narrative Sinus [...] (Please see procedure below.) SINONASAL ENDOSCOPY (CPT 73943): To better evaluate the patient's symptoms, sinonasal [...] Toni Bansal MD documented in this encounter [facility] Work Phone: 10-19-2024 Nurse Note Preoperative Education Checklist- General Surgery date: 10/20/24 Surgery time: 10a Arrival time: 9a 1. Bring a photo ID and your insurance card with you the day of surgery. You will check in at the main lobby of the [facility]- registration desk is straight ahead as soon as you walk in. Tell them you are here for surgery. 2. If you have a Living Will/Durable Power of Impregnating Tank Operator for Health Care that is not on [...] after you have bathed. 5. NO nail tanzanian/acrylic on at least one finger. If you are having a hand, wrist or foot surgery then all nail tanzanian and artificial/acrylic nails must be removed from [...] please call the Preadmission Testing office at [phone], Mon.-Fri. 7 a.m.-3 p.m. Leave a voicemail [...] Stop taking 0 days prior to procedure [facility] [employer] 10-19-2024 Miscellaneous Notes Preoperative Education Checklist- General Surgery date: 10/20/24 Surgery time: 10a Arrival time: 9a 1. Bring a photo ID and your insurance card with you the day of surgery. You will check in at the main lobby of the [facility]- registration desk is straight ahead as soon as you walk in. Tell them you are here for surgery. 2. If you have a Living Will/Durable Power of Impregnating Tank Operator for Health Care that is not on [...] after you have bathed. 5. NO nail tanzanian/acrylic on at least one finger. If you are having a hand, wrist or foot surgery then all nail tanzanian and artificial/acrylic nails must be removed from [...] please call the Preadmission Testing office at [phone], Mon.-Fri. 7 a.m.-3 p.m. Leave a voicemail [...] prior to procedure documented in this encounter [facility] 08-11-2024 History of Present illness Narrative Sinus [...] (Please see procedure below.) SINONASAL ENDOSCOPY (CPT 64558-51): To better evaluate the patient's symptoms, sinonasal [...] By signing my name below, I, Abdias Valadez, Escobaribe, attest that this documentation has been prepared under the direction and in the presence of Toni Bansal MD. Signature: Toni Bansal MD documented in this encounter [facility] Work Phone: 08-03-2024 Miscellaneous Notes Please let patient know that she continues to have obstructive sleep apnea despite her sinus surgery. I would recommend that she continue with her CPAP therapy. Read note to pt. Pt verbalizes understanding. documented in this encounter [facility] 08-03-2024 Telephone encounter Note Please let patient know that she continues to have obstructive sleep apnea despite her sinus surgery. I would recommend that she continue with her CPAP therapy. [facility] Telephone encounter Note Read note to pt. Pt verbalizes understanding. [employer] 08-02-2024 Miscellaneous Notes Home sleep testing interpreted ordered by PCP MALI ESPINOZA for PPG read/follow Positive for LILO, please see full report [place], please offer new patient appointment with sleep provider Home sleep apnea test on 07/28/2024 (THADDEUS (3%)=15.4 events/hour; THADDEUS (4%)=6.7 events/hour; Jerod SpO2=84.0%; Pyjitv=228.0 lbs; BMI=30.7 kg/m2) DIAGNOSIS: Obstructive Sleep Apnea (G47.33) COMMENTS: This home sleep apnea test demonstrates obstructive sleep apnea. Please note that home sleep testing may underestimate sleep apnea severity due to lack of EEG monitoring. TREATMENT CONSIDERATIONS: A trial of nCPAP therapy is recommended. documented in this encounter [employer] 08-02-2024 Telephone encounter Note Home sleep testing interpreted ordered by PCP MALI ESPINOZA for PPG read/follow Positive for LILO, please see full report [place], please offer new patient appointment with sleep provider Home sleep apnea test on 07/28/2024 (THADDEUS (3%)=15.4 events/hour; THADDEUS (4%)=6.7 events/hour; Jerod SpO2=84.0%; Nyzvuf=141.0 lbs; BMI=30.7 kg/m2) DIAGNOSIS: Obstructive Sleep Apnea (G47.33) COMMENTS: This home sleep apnea test demonstrates obstructive sleep apnea. Please note that home sleep testing may underestimate sleep apnea severity due to lack of EEG monitoring. TREATMENT CONSIDERATIONS: A trial of nCPAP therapy is recommended. [employer] Work Phone: 07-07-2024 Miscellaneous Notes 06/24 Order received 07/07 Called PT LM to schedule sleep study. Patient is busy at this time and will call back to schedule HST Order and 06/24/23 Valente Franklin Notes Order Deferred documented in this encounter [facility] 07-07-2024 Telephone encounter Note 06/24 Order received 07/07 Called PT LM to schedule sleep study. Patient is busy at this time and will call back to schedule HST Order and 06/24/23 Valente Franklin Notes Order Deferred [facility] 06-30-2024 History of Present illness Narrative [...] History Of Present Illness: Yani Joseph presents for her second postoperative evaluation [...] procedure below.) SINONASAL ENDOSCOPY WITH DEBRIDEMENT (CPT 08509-86-81): Due to the patient's chronic sinusitis/chronic rhinitis, [...] Toni Bansal MD documented in this encounter [facility] Work Phone: 06-29-2024 Miscellaneous Notes ----- Message from MALI Aguilar sent at 06/29/2024 8:53 AM EDT ----- Will you please make sure her home sleep study order went to [facility] sleep center. Was not informed she has sleep study or where it needed sent, will get sent over done documented in this encounter [facility] 06-29-2024 Telephone encounter Note ----- Message from MALI Aguilar sent at 06/29/2024 8:53 AM EDT ----- Will you please make sure her home sleep study order went to [facility] sleep center. [facility] 06-29-2024 Telephone encounter Note Was not informed she has sleep study or where it needed sent, will get sent over [facility] 06-29-2024 Telephone encounter Note done [facility] 06-24-2024 History of Present illness Narrative [address] [place] [address] Patient: Yani Joseph Date of : 1960 [...] current visit Relevant Orders FLU VACCINE TS 2023-(6MOS UP)(PF) 45 MCG(15MCG [...] Date Asthma Kidney stones 02/02/2024 Pulmonary embolism (CMS-HCC) Shortness of breath Sinusitis chronic, frontal 02/2024 [...] at current visit - FLU VACCINE TS (6MOS UP)(PF) 45 MCG(15MCG [...] like to do home sleep study through [facility]. The OARRS/MAPPS database was reviewed today and found to be appropriate. No indication of medication diversion, or non compliance. MALI ESPINOZA APRN-CNP 06/29/24 0853 documented in this encounter [facility] 06-23-2024 History of Present illness Narrative Sinus [...] Disp: 30 mL, Rfl: 0 sodium chloride (Owen) 0.65 % nasal spray, Administer 2 sprays [...] procedure below.) SINONASAL ENDOSCOPY WITH DEBRIDEMENT (CPT [id number]): Due to the patient's chronic sinusitis/chronic rhinitis, [...] By signing my name below, I, Abdias Marcello Valadez, attest that this documentation has been prepared under the direction and in the presence of Toni Bansal MD. Signature: Toni Bansal MD documented in this encounter [facility] Work Phone: 06-17-2024 Hospital Discharge instructions [...] to have the nose irrigated with a NeKoogame Sinus Rinse bottle (irrigation instructions and saline [...] of baking soda You can use the NeilMed Sinus Rinse solution packets if preferred Follow [...] Otolaryngology - Division of Rhinology Dr. Malik [phone] - Dr. Bansal [phone] Normal office hours are: 8am-4pm Friday - Friday If there is an after-hours EMERGENCY related to your procedure please call [phone] (ask for the ENT resident on-call ). documented in this encounter [facility] Work Phone: 05-31-2024 Note Formatting of [...] review of patient's medical records. Speech recognition fiscal accounting clerk software was used in the creation of this note. Despite proofreading, several typographical errors might be present that might affect the meaning of the content. [facility] Work Phone: 05-31-2024 Miscellaneous Notes CPM/PAT Evaluation Name: Yani Joseph /Age: 6 1960 TELEMEDICINE ENCOUNTER Patient was interviewed by telephone for preadmission testing perioperative risk assessment prior to surgery. DATE OF CONSULT: 05/31/2024 REFERRING PROVIDER: Dr. Toni Bansal SURGERY, DATE, AND LENGTH: Nasal endoscopy, septoplasty; 06/17/2024; 210 minutes CHIEF COMPLAINT Nasal obstructed breathing, deviated nasal septum PRISCILLA Joseph is a 64-year-old female with a [...] review of patient's medical records. Speech recognition fiscal accounting clerk software was used in the creation of this note. Despite proofreading, several typographical errors might be present that might affect the meaning of the content. Pre-Op Instructions &?Checklist Your surgery has been scheduled at [facility] at [address] in [place], [place], [facility], [address], in the [facility]. Parking is to the left of the [...] call by 3:00 pm you may call [phone] between the hours of 3:00 and 4:00 [...] *If you need help with quitting, call [phone]-DXKJ-NOW. Alcohol: *No alcoholic beverages for 48 hours before surgery. ? AFTER OUTPATIENT SURGERY: *A responsible adult MUST accompany you at the time of discharge and stay with you for 24 hours after your surgery. *You may NOT drive yourself home after surgery. * You may use a taxi or ride sharing service ([employer], [employer]ytis) to return home ONLY if you are [...] regarding these preoperative instructions you may call [phone]. If you have questions regarding you surgical procedure, or post-operative care/recovery please call your surgeon's office. Link to [facility] Laboratory Services Locations [email or web address] Link to [facility] [employer] [email or web address] [email or web address]/My Chart/Authentication/Login?mode=st dfile&option=faq\ documented in this encounter [facility] Work Phone: 05-31-2024 Note Formatting of this n ote is different from the original. Pre-Op Instructions &?Checklist Your surgery has been scheduled at [facility] at [address] in [place], [place], [facility], [address], in the [facility]. Parking is to the left of the [...] call by 3:00 pm you may call [phone] between the hours of 3:00 and 4:00 [...] *If you need help with quitting, call 3-951-IGUR-NOW. Alcohol: *No alcoholic beverages for 48 hours before surgery. ? AFTER OUTPATIENT SURGERY: *A responsible adult MUST accompany you at the time of discharge and stay with you for 24 hours after your surgery. *You may NOT drive yourself home after surgery. * You may use a taxi or ride sharing service ([employer]KOVRe, Xytis) to return home ONLY if you are [...] regarding these preoperative instructions you may call [phone]. If you have questions regarding you surgical procedure, or post-operative care/recovery please call your surgeon's office. Link to [facility] Laboratory Services Locations [email or web address] [email or web address] Link to [facility] [employer] [email or web address]/My Chart/Authentication/Login?mode=st dfile&option=faq\ [facility] Work Phone: 05-06-2024 History of Present illness Narrative [address] [place] [address] Patient: Yani Joseph Date of : 1960 [...] with ENT in June. Patient saw her cancer researcher in February and her thyroid function tests were normal and she was advised to lose weight and provider was aware she was planning on using Adipex for medically monitored weight loss. She had a colonoscopy with a GI provider through [facility] almost 5 years ago that showed polyps [...] Date Asthma Kidney stones 02/02/2024 Pulmonary embolism (CMS-HCC) Shortness of breath Sinusitis chronic, frontal 02/2024 [...] APRN-CNP 05/06/24 1620 [facility] History of Present illness Narrative [address] [place] [address] Patient: Yani Joseph Date of : 1960 [...] 2021 was reviewed with patient today showing irbb-ov-pkyrwama sleep apnea with mild hypoxia. Problem List [...] Date Asthma Kidney stones 02/02/2024 Pulmonary embolism ([facility]) Shortness of breath Sinusitis chronic, frontal 02/2024 [...] the Adipex. Blood pressure well controlled. Her cancer researcher is aware that she is taking the [...] recommendation. Follow-up in 1 month for Adipex. BARBARAMALI LEYVA APRN-CNP 04/01/24 1218 documented in this encounter [facility] 03-11-2024 Hospital Discharge instructions Patient Education 03/11/2024 [...] Follow these instructions at home: Medicines Take aqon-qjx-irxysqa and prescription medicines only as told by [...] provider. Document Revised: 12/11/2022 Document Reviewed: 12/11/2022 [employer] Patient Education 2022 [employer]. Follow Up Care 03/05/2024 12:09:13 With:FLORINDA PATRICIA PA-C, URL Address: [address] [place] [address] When: Unknown [facility] 03-11-2024 Note Patient Education Urology Kidney Stones [...] these instructions at home: Medicines ? Take jnqr-qhv-agrbwkq and prescription medicines only as told by [...] diet. Follow r (more content not included)... [facility] 03-05-2024 History of Present illness Narrative [address] [place] [address] Patient: Yani Joseph Date of : 1960 [...] is to have surgery with ENT through [facility] in June for removal of the polyps and clean out of her sinuses. Her septum is also deviated. She recently saw her cancer researcher in [place] who commented on her weight gain from [...] Date Asthma Kidney stones 02/02/2024 Pulmonary embolism ([facility]) Shortness of breath Sinusitis chronic, frontal 02/2024 [...] to help her lose more weight. Her cancer researcher stated at last appointment she is okay to take this with her hyperthyroidism as long as she is closely monitored by her PCP. Return to office in 1 month for recheck of her weight. She should try to increase her activity and use her rescue inhaler before exercise. MALI ESPINOZA APRN-CNP 03/05/24 3416 documented in this encounter [facility] [employer] 01-28-2024 History of Present illness Narrative [address] [facility] [address] Patient: Yani Joseph Date of : 1960 Encounter Date: 01/28/2024 History of Present Illness: The patient is a 63 y.o. female, an established patient, and is here for No chief complaint on file. . HPI Patient is here to follow-up on her chronic problems. After last appointment she was referred to viner operator Dr. Lino in [place] urine was offered Dupixent but due to the cost and insurance hopes patient instead decided to start several weeks of steroids. The viner operator also told her she had polyps in her nose. She then had to see ENT doctor Colt in [place] to obtain CT of her sinuses in order to qualify for the Dupixent. The ENT extended her steroid taper and placed her on 1 month of Augmentin for her sinus and asthma issues. She has gained 12 lb since starting the steroids due to the increased appetite. She is unsure if she will start the Dupixent with the viner operator. She has not needed her rescue inhaler [...] Medical History: Diagnosis Date Asthma Pulmonary embolism ([facility]) Shortness of breath Past Surgical History: Procedure [...] provider know. Patient has follow-up with her cancer researcher in the next 1 month. She should [...] APRN-CNP 01/29/24 1015 documented in this encounter [facility] 11-25-2023 Hospital Discharge instructions Patient Education 11/25/2023 14:47:21 Kidney Stones, Skkg-ov-Xorq Kidney Stones Kidney stones are rock-like masses [...] Follow these instructions at home: Medicines Take bvbu-luk-pfugqxj and prescription medicines only as told by [...] provider. Document Revised: 05/06/2022 Document Reviewed: 05/06/2022 [employer]ium Patient Education 2022 [employer]. Follow Up Care 11/19/2022 11:44:13 With:FLORINDA PATRICIA PA-C, URL Address: [address] [place] [address] When:Within 1 Year(s) Comments:REGIS/NABIL [facility] 11-07-2023 History of Present illness Narrative Called patient to let her know there was an abnormality on the left breast and additional imaging is required. She understands and will call central scheduling to set this up today. Order sent for screening mammogram and diagnostic mammogram on left. MALI Espinoza 11/07/23 0906 documented in this encounter [email or web address] 06-15-2023 Evaluation note Encounter Date Diagnosis Assessment [...] Jun, History of sinusitis (ICD-10 - Z87.09) [facility] Other 09-18-2023 Evaluation note* Encounter Date Diagnosis [...] no improvement in 2 to 3 days [facility] Other 04-10-2023 Evaluation note* Encounter Date Diagnosis [...] see her for follow-up in 1 year [facility] Other 03-13-2023 Evaluation + Plan noteExtracted from: Title:ED Note Author:Riccardo Berry PA-C te:11/25/22 Asthma (J45.909: Unspecified asthma, uncomplicated) Pneumonia (J18.9: Pneumonia, unspecified organism) Orders: azithromycin, = 1 packet(s), Oral, As Directed, as directed on package labeling, X 5 day(s), # 6 tab(s), Refills(s) 0, Pharmacy: [facility], 165, cm, 11/25/22 9:56:00 EDT, Height/Length Dosing, 84.2, kg, 11/25/22 9:56:00 EDT, Weight Dosing benzonatate, 200 mg = 1 cap(s), Oral, TID, X 7 day(s), # 21 cap(s), Refills(s) 0, Pharmacy: [facility], 165, cm, 11/25/22 9:56:00 EDT, Height/Length Dosing, 84.2, kg, 11/25/22 9:56:00 EDT, Weight Dosing cefdinir, 300 mg = 1 cap(s), Oral, q12hr, X 10 day(s), # 20 cap(s), Refills(s) 0, Pharmacy: [facility], 165, cm, 11/25/22 9:56:00 EDT, Height/Length Dosing, 84.2, kg, 11/25/22 9:56:00 EDT, Weight Dosing ibuprofen, 800 mg = 1 tab(s), Tab, Oral, Once, Stop date 11/25/22 10:40:00 EDT, STAT, Start date 11/25/22 10:40:00 EDT, 11/25/22 10:40:00 EDT predniSONE, 60 mg = 3 tab(s), Oral, Daily, X 7 day(s), # 21 tab(s), Refills(s) 0, Pharmacy: [facility], 165, cm, 11/25/22 9:56:00 EDT, Height/Length Dosing, 84.2, kg, 11/25/22 9:56:00 EDT, Weight Dosing XR Chest 2 Views Future Appointments Appointment Date:11/25/2023 02:00:00 PM Scheduled Provider:FLORINDA PATRICIA PA-C Location:[facility] Appointment Type:URO Office Visit [facility]03[facility]13[facility]2023 Hospital Discharge instructions Patient Education 11/25/2022 10:50:57 [...] Follow these instructions at home: Medicines Take becm-zrp-gixqrmz and prescription medicines only as told by [...] and water are not available, use hand rv repairer. Contact a health care provider if: You [...] 09/01/2006 Document Revised: 04/29/2019 Document Reviewed: 04/29/2019 Remotium Patient Education 2020 [employer]. Follow Up Care 11/25/2022 09:44:57 With:GERA BURCIAGA Address: [address] [place], [place] [address] [address] Business (1) When:11/28/2022 10:41:38 [facility]03-08-2023 Evaluation note* Encounter Date Diagnosis Assessment Notes [...] days Nov, Sore throat (ICD-10 - J02.9) [facility] Other 03-07-2023 Hospital Discharge instructions Patient Education [...] you may eat and drink normally. Take cqqh-emn-uincsec and prescription medicines only as told by your health care provider. Let your health care provider know about any medicines that you are taking, including yjkh-hii-rhnlxff medicines, vitamins, herbs, and supplements. Choose a [...] 11/28/2009 Document Revised: 12/20/2019 Document Reviewed: 09/14/2018 Rem[employer]ium Patient Education 2019 [employer]. Follow Up Care 07/29/2022 09:24:04 With:KADE RIOS, FLORINDA Pinto, URL Address: When:1 year [facility] 10-10-2022 Evaluation note* Encounter Date Diagnosis Assessment [...] treatment Jun, Restless sleeper (ICD-10 - G47.9) [facility] Other 08-05-2022 Evaluation + Plan note Future Scheduled Tests Radiology* XR IVP 04/19/22 [facility] 08-05-2022 Hospital Discharge instructions Patient Education 04/19/2022 09:06:45 Kidney Stones, Fjyf-bb-Jzkd Kidney Stones Kidney stones are rock-like masses [...] Follow these instructions at home: Medicines Take iutr-slp-gzdauyd and prescription medicines only as told by [...] 02/17/2009 Document Revised: 01/18/2020 Document Reviewed: 01/18/2020 Rem[employer]ium Patient Education 2020 [employer]. Follow Up Care 04/02/2022 11:51:41 With:KASSIDY THORNE, Justin Peterson, URL Address: [address] [place] [address]- When: Unknown [facility] 07-17-2022 Evaluation + Plan noteExtracted from: Title:ED Note Author:Iraida Knox M.D. te:03/31/22 1. Left ureteral stone (N20. 1: Calculus of ureter) Ordered: acetaminophen-oxycodone, 1 tab(s), Oral, q6hr as needed for pain, 10 tab(s), Refill(s) 0, [facility], 165, cm, 03/30/22 21:43:00 EDT, Height/Length Dosing, 79.5, kg, 03/30/22 21:43:00 EDT, Weight Dosing 2. Urinary tract infection (N39.0: Urinary tract infection, site not specified) Orders: cephalexin, 500 mg = 1 cap(s), Oral, QID, X 7 day(s), # 28 cap(s), Refills(s) 0, Pharmacy: [facility], 165, cm, 03/30/22 21:43:00 EDT, Height/Length [...] PM Scheduled Provider:Misael VINES MD Location:[facility] Appointment Type:URO Office Visit Diagnostic Tests Pending * Urine Culture 03/30/22 [facility]07-17[facility]2022 Hospital Discharge instructions Patient Education 03/31/2022 02:46:45 [...] Treatment for this condition includes: Antibiotic medicine. Szii-jyp-yvjvfkv medicines to treat discomfort. Drinking enough water [...] Follow these instructions at home: Medicines Take xmze-ald-hpbdqjb and prescription medicines only as told by [...] 06/11/2006 Document Revised: 08/19/2019 Document Reviewed: 03/11/2019 Rem[employer]ium Patient Education 2020 [employer]. 03/31/2022 02:46:45 Kidney Stones Kidney Stones Kidney [...] Follow these instructions at home: Medicines Take lhbp-fvr-lnfsabn and prescription medicines only as told by [...] 09/01/2006 Document Revised: 01/18/2020 Document Reviewed: 01/18/2020 Rem[employer]ium Patient Education 2019 [employer]. Follow Up Care 03/30/2022 21:24:27 With:Justin YI Address: [facility] [address], [place] [address]- Business (1) When:04/03/2022 Comments:Return to the emergency room if your pain gets worse or any new symptoms With:GERA BURCIAGA Address: [address] [place] [address] Business (1) When:Within 3 Day(s) [facility]06-16-2022 NotePROCEDURE: XR ANKLE RT MIN 3 VIEWS, XR FOOT RT MIN 3 VIEWS HISTORY: Pain COMPARISON: XR ankle right 02/27/2022 FINDINGS: BONES:No fracture, acute abnormality, or significant arthropathy. SOFT TISSUES:No visible soft tissue swelling. EFFUSION:None visible. OTHER: Negative. IMPRESSION: 1. No acute bone abnormality or significant degenerative changes of the right ankle and foot. Electronically authenticated by: ARVIN MONTEIRO Date: 2022-02-28 18:02[facility]06-16-2022 NotePROCEDURE: XR ANKLE RT MIN 3 VIEWS, XR FOOT RT MIN 3 VIEWS HISTORY: Pain COMPARISON: XR ankle right 02/27/2022 FINDINGS: BONES:No fracture, acute abnormality, or significant arthropathy. SOFT TISSUES:No visible soft tissue swelling. EFFUSION:None visible. OTHER: Negative. IMPRESSION: 1. No acute bone abnormality or significant degenerative changes of the right ankle and foot. Electronically authenticated by: ARVIN MONTEIRO Date: 2022-02-28 18:02[facility]06-15-2022 NotePROCEDURE: XR ANKLE RT MIN 3 [...] Electronically authenticated by: ARVIN MONTEIRO Date: 2022-02-27 15:16[facility]05-23-2022 Hospital Discharge instructions Patient Education 02/04/2022 [...] degrees. Follow Up Care 01/25/2022 13:36:51 With:Misael VINES Address: [facility] [address] [facility] (1) When:6 months Comments:Call for followup appointment with an abdominal X-ray prior to your visit. Have a great day! [facility]05-12-2022 Hospital Discharge instructions Patient Education 01/24/2022 15:47:58 [...] Follow these instructions at home: Medicines Take kgbj-mps-jnddxrc and prescription medicines only as told by [...] 09/01/2006 Document Revised: 01/18/2020 Document Reviewed: 01/18/2020 Rem[employer]ium Patient Education 2019 Adynxx Follow Up Care 01/24/2022 06:02:33 With:Misael VINES Address: [address] [address] Business (1) When: Unknown Comments:Call for followup appointment with an abdominal x-RAY prior to your visit. With:GERA BURCIAGA Address: [address] [address] Business (1) When: Unknown [facility]05-12-2022 Evaluation + Plan noteExtracted from: Title:Urology Consult and H&P 2 Author:Misael VINES MD Date:01/24/22 Impression and Plan Diagnosis Renal calculi (FGA24-RK N20.0, Discharge, Medical). Hydronephrosis with ureteral calculus ([id number] N13.2, Working, Medical). Complaint of Flank pain (PNED [id number], Reason For Visit, Nursing). Course: Worsening, overall [...] Extracted from: Title:Admission H & P Author:MUKUL AGANORMP-BC, R enee Date:01/24/22 1. Renal calculi (N20.0: Reema culus [...] made to ensure accuracy, however, inadvertently computerized fiscal accounting clerk mistakes may be present. Extracted from: Title:ED [...] 09:45:00 AM Scheduled Provider:Jose THORNE, Nohemi Boothe Location:[facility] Appointment Type:URO New Patient Diagnostic Tests Pending * Calculi Analysis Urinary 01/24/22 [facility]05-02-2022 Evaluation note* Encounter Date Diagnosis Assessment Notes [...] days. January, Hematuria, unspecified (ICD-10 - R31.9) [employer] Other 10-28-2021 Evaluation note* Encounter Date Diagnosis [...] Patient care instructions given in writting by [facility] Care At Home document. [employer] Other Evaluation + Plan note No data available for this section [facility] Future Appointments Appointment Date:02/04/2022 02:30:00 PM Scheduled Provider: Location:[facility] Appointment Type:Urology FT [facility] evaluation + Plan note Future Appointments Appointment Date:08/06/2022 02:15:00 PM Scheduled Provider:Misael VINES MD Location:[facility] Appointment Type:URO [facility] Future Appointments Appointment Date:11/25/2023 02:00:00 PM Scheduled Provider:FLORINDA PATRICIA PA-C Location:[facility] Appointment Type:URO Office Visit [facility] evaluation + Plan note Future Appointments Appointment Date:03/08/2025 08:20:00 AM Scheduled Provider:FLORINDA PATRICIA PA-C Location:[facility] Appointment Type:URO Office Visit Future Scheduled Tests Radiology* XR Abdomen 1 View 01/24/25 * US Renal 01/24/25 [facility] evaluation + Plan note Future Appointments Appointment Date:03/08/2025 08:20:00 AM Scheduled Provider:FLORINDA PATRICIA PA-C Location:[facility] Appointment Type:URO Office Visit Diagnostic Tests Pending * T3 Free 02/10/24 Future Scheduled Tests Radiology* XR Abdomen 1 View 01/24/25 * US Renal 01/24/25 [facility] Future Appointments Appointment Date:03/11/2024 12:40:00 PM Scheduled Provider:FLORINDA PATRICIA PA-C Location:[facility] [place] Appointment Type:URO Office Visit Appointment Date:03/08/2025 08:20:00 AM Scheduled Provider:FLORINDA PATRICIA PA-C Location:[facility] JAMIE Gonzalez Appointment Type:URO Office Visit Future Scheduled Tests Radiology* XR Abdomen 1 View 01/24/25 * US Renal 01/24/25 [facility] evaluation noteNo assessment information available [facility] Work Phone: Evaluation note* Diagnosis Onset Date Resolution Status BMI 33.0-33.9,adult acute Depression acute HTN (hypertension) acute Migraine headache acute Obstructive sleep apnea acut e Restless sleeper acute [facility] Work Phone: Evaluation note* Diagnosis Chronic [...] crisis or storm documented in this encounter [facility] Work Phone: Evaluation note* Diagnosis Chronic ethmoidal sinusitis- Primary Nasal polyp Unspecified nasal polyp Nasal congestion with rhinorrhea Other diseases of nasal cavity and sinuses documented in this encounter [facility] Work Phone: Evaluation note* Diagnosis Chronic ethmoidal sinusitis- Primary Nasal polyp Unspecified nasal polyp Nasal congestion with rhinorrhea Other diseases of nasal cavity and sinuses documented in this encounter [facility] Work Phone: Evaluation note* Diagnosis Chronic ethmoidal sinusitis- Primary Decreased sense of smell Disturbances of sensation of smell and taste documented in this encounter [facility] Work Phone: Evaluation note* Diagnosis Personal history of adenomatous and serrated colon polyps- Primary Allergic rhinitis, unspecified Personal history of adenomatous and serrated colon polyps [facility] Diagnosis Encounter for screening mammogram for malignant neoplasm of breast- Primary [facility] Diagnosis Class 1 obesity due to excess calories without serious comorbidity with body mass index (BMI) of 33.0 to 33.9 in adult- Primary Graves' disease 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 crisis or storm Essential hypertension Unspecified essential hypertension Moderate persistent asthma without complication Gastroesophageal reflux disease, unspecified whether esophagitis present [facility] Diagnosis Essential (primary) hypertension Unspecified essential hypertension [facility] Diagnosis Essential hypertension- Primary Unspecified essential hypertension Nasal polyp Unspecified nasal polyp Class 1 obesity due to excess calories with serious comorbidity and body mass index (BMI) of 33.0 to 33.9 in adult Moderate persistent asthma without complication [facility] Diagnosis Abnormal mammogram of left breast- Primary [facility]* Diagnosis Class 1 obesity due to excess calories with serious comorbidity and body mass index (BMI) of 31.0 to 31.9 in adult- Primary Class 1 obesity due to excess calories with serious comorbidity and body mass index (BMI) of 33.0 to 33.9 in adult LILO (obstructive sleep apnea) Obstructive sleep apnea (adult) (pediatric) documented [facility]* Diagnosis Migraine without aura, not intractable, without status migrainosus [facility]* Diagnosis Allergic rhinitis, unspecified [facility] Diagnosis Wellness examination- Primary Class 1 obesity due to excess calories with serious comorbidity and body mass index (BMI) of 33.0 to 33.9 in adult LILO (obstructive sleep apnea) Obstructive sleep apnea (adult) (pediatric) Encounter for screening colonoscopy History of colon polyps [facility] Diagnosis Osteoporosis without current pathological fracture, unspecified osteoporosis type History of colon polyps [facility] Diagnosis LILO (obstructive sleep apnea)- Primary Obstructive sleep apnea (adult) (pediatric) Influenza vaccination administered at current visit Class 1 obesity due to excess calories with serious comorbidity and body mass index (BMI) of 33.0 to 33.9 in adult History of colon polyps [facility] Diagnosis Migraine without aura, not intractable, without status migrainosus History of colon polyps [facility]* Diagnosis LILO (obstructive sleep apnea) Obstructive sleep apnea (adult) (pediatric) History of colon polyps [facility]* Diagnosis Encounter for screening mammogram for malignant neoplasm of breast- Primary [facility]* Diagnosis Migraine without aura, not intractable, without status migrainosus [facility]* Diagnosis Chronic ethmoidal sinusitis- Primary Decreased sense of smell Disturbances of sensation of smell and taste Nasal polyp Unspecified nasal polyp documented in this encounter [facility] Work Phone: Evaluation note* Diagnosis Mid back pain on left side- Primary Neck pain Cervicalgia [facility] Diagnosis Thoracic spondylosis without myelopathy- Primary [facility]* Diagnosis LILO (obstructive sleep apnea)- Primary Obstructive sleep apnea (adult) (pediatric) BMI 30.0-30.9,adult Obesity (BMI 30-39.9) Difficulty with CPAP use [facility] Diagnosis Community acquired pneumonia of right upper lobe of lung- Primary Hiatal hernia Diaphragmatic hernia without mention of obstruction or gangrene Obstructive sleep apnea Obstructive sleep apnea (adult) (pediatric) documented [facility]* Diagnosis Essential (primary) hypertension Unspecified essential hypertension [facility]* Diagnosis Graves' disease- Primary 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 crisis or storm Hyperthyroidism Thyrotoxicosis without mention of goiter or other cause, without mention of thyrotoxic crisis or storm Multinodular goiter Nontoxic multinodular goiter [facility] N[facility] - Reported* Type Description Date Medical History HTN (hypertension) Medical History Hypercholesterolemia Medical History Migraine headache Medical History HX of PE Medical History Anxiety Medical History Depression Medical History hyperthyroidism Surgical History hysterectomy Surgical History cholecystectomy Surgical History hiatal hernia repair Surgical History left knee torn meniscus Hospitalization History headaches Hospitalization History see above Hospitalization History blood clots Hospitalization History asthma [employer] Other History general Narrative - Reported* Type [...] Hospitalization History blood clots Hospitalization History asthma [employer] Other Hospital Discharge instructions No data available for this section [facility]ructionsNot on filedocumented in this encounter [facility] [...] * Influenza Vaccine (Inactivated) Information Statement (VIS) (Azeri) [facility] System[facility]ructionsNot on file documented in this encounter[facility] SystemInstructionsNot on file documented in this encounter[facility] SystemInstructionsNot on file documented in this encounterPro[facility] SystemInstructionsNot on file documented in this encounterPro[facility] SystemInstructionsNot on file documented in this [facility]Pro[facility] SystemProgress note No data available for this section [facility] Narrative* Auth/Cert Specialty Diagnoses / Procedures Referred By Contac t Referred To Contact Diagnoses Deviated nasal septum Chronic ethmoidal sinusitis Deviated nasal septum [J34.2] Chronic ethmoidal sinusitis [J32.2] Procedures NJ NSL/SINUS NDSC MAX ANTROST W/RMVL TISS MAX SINUS NJ NASAL/SINUS NDSC W/RMVL TISS FROM FRONTAL SINUS NJ NASAL/SINUS NDSC SURG W/LOR BULLOSA RESECTION NJ SEPTOPLASTY/SUBMUCOUS RESECJ W/WO CARTILAGE GRF NJ STRTCTC CPTR ASSTD PX EXTRADURAL CRANIAL NJ NASAL/SINUS NDSC TOT W/SPHENDT W/SPHEN TISS RMVL NJ SUBMUCOUS RESCJ INFERIOR TURBINATE PRTL/COMPL Nasal Endoscopy with Excision Tissue Maxillary Sinus Nasal Endoscopy with Excision Tissue Frontal Sinus Excision Nasal Turbinate Repair Septum Nasal Cavity Navigation-Assisted Surgery Toni Bansal MD [address] [facility] [address] [place] [address] [facility] [place] [address] [place] [id number] Referral ID Status Reason Start Date Expiration Date Visits Re quested Visits Authorized [id number] 1 1 [facility] Work Phone: Rexqlt for visit Narrative* Misc (Routine) - Closed Specialty Diagnoses / Procedures Referred By Dio huitron Referred To Contact Diagnoses LILO (obstructive sleep apnea) Procedures Home sleep study Barbara Peters, 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 [employer]IC[employer] [address] [place] [address] Phone: tel: fax: Referral ID Status Reason Start Date Expiration Date Visits Re quested Visits Authorized [id number] Closed 06/24/2024 06/24/2025 1 1 [facility] Summary Purpose Family History Relationship Condition Age at Onset Recorded Date/T [...] Unknown History of stroke Unknown Advance Directives Advance Directive Response Recorded Date/ Time Advance [...] Referral Specialty Diagnoses / Procedures Referred By Dio huitron Referred To Contact Diagnoses LILO (obstructive sleep apnea) Procedures Home sleep study Barbara Peters, 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 [employer]IC[employer] [address] [facility] [place] [address] Referral ID Status Reason Start Date Expiration Date V isits Requested Visits Authorized [id number] Pending Review 06/24/2024 06/24/2025 1 1 Additional Source Comments INFORMATION SOURCE (unrecogn ized section and content) DATE CREATED AUTHOR 01/13/2022 [facility] DATE CREATED AUTHOR AUTHOR'S ORGANIZ ATION 06/24/2022 [facility] DATE CREATED AUTHOR AUTHOR'S ORGANIZ ATION 12/22/[address] [facility] DATE CREATED AUTHOR AUTHOR'S ORGANIZ ATION 02/11/2024 [facility] DATE CREATED AUTHOR AUTHOR'S ORGANIZ ATION 02/26/2024 [facility] DATE CREATED AUTHOR AUTHOR'S ORGANIZ ATION 03/12/2024 [facility] DATE CREATED AUTHOR AUTHOR'S ORGANIZ ATION 05/08/2024 [facility] DATE CREATED AUTHOR AUTHOR'S ORGANIZ ATION 07/03/2024 [facility] DATE CREATED AUTHOR AUTHOR'S ORGANIZ ATION 12/15/2024 [facility] DATE CREATED AUTHOR AUTHOR'S ORGANIZ ATION 12/19/[address] [facility] DATE CREATED AUTHOR AUTHOR'S ORGANIZ ATION 01/28/2025 [facility] DATE CREATED AUTHOR AUTHOR'S ORGANIZ ATION 02/13/2025 [facility] DATE CREATED AUTHOR AUTHOR'S ORGANIZ ATION 02/19/2025 [facility] REASON FOR VISIT (unrecogniz ed section and content) Reason Comments Post-op Reason Comments Follow-up Reason Comments Med Refill Reason Comments BP Reason Comments Weight Check Reason Comments Annual Exam Reason Comments Weight Check Reason Onset Date Comments Sleep Lab 07/07/2024 HST Reason Comments back pain/ was at [facility] Reason Comments Back Pain Extremity Pain Reason Comments New Patient HST: 07/28/2024On Cu rrent PAP therapyDME:Jose Sleep Apnea Reason Comments TCM from [facility] Reason Comments Thyroid Problem Follow-up LAB Care Team (unrecognized sect ion and content) Team Status: Inactive Member Role Status Dates Gera Burciaga DO Primary Care Provider Active NABEEL Aguilar LOUVER MORTISER OPERATOR-C Attending Provider Active Team Status: Active Member [...] December 29, 2023 End: December 29, 2023 Entry Writer Relationship Specialty Start Date End Date Barbara Peters APRN-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 [employer] [address] [place] [address] PCP - General Internal Medicine 02/20/23 Entry Writer Relationship Specialty Start Date End Date Barbara Peters APRN-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 [address] [place] [address] PCP - General Internal Medicine 02/20/23 Entry Writer Relationship Specialty Start Date End Date Barbara Peters 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 [employer] [address] [place] [address] PCP - General Internal Medicine 02/20/23 Entry Writer Relationship Specialty Start Date End Date Barbara Peters 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 [employer] [address] [place] [address] PCP - General Internal Medicine 02/20/23 Entry Writer Relationship Specialty Start Date End Date Barbara Peters 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 [employer] [address] [place] [address] PCP - General Internal Medicine 02/20/23 Entry Writer Relationship Specialty Start Date End Date Barbara Peters 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 [employer] [address] [place] [address] PCP - General Internal Medicine 02/20/23 Entry Writer Relationship Specialty Start Date End Date Barbara Peters 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 [employer] [address] [place] [address] PCP - General Internal Medicine 02/20/23 Entry Writer Relationship Specialty Start Date End Date Barbara Peters 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 [employer] [address] [place] [address] PCP - General Internal Medicine 02/20/23 Entry Writer Relationship Specialty Start Date End Date Barbara Peters 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 [employer] [address] [place] [address] PCP - General Internal Medicine 02/20/23 Entry Writer Relationship Specialty Start Date End Date Barbara Peters 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 [employer] [address] [place] [address] PCP - General Internal Medicine 02/20/23 Entry Writer Relationship Specialty Start Date End Date Barbara Peters 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 [employer] [address] [place] [address] PCP - General Internal Medicine 02/20/23 Entry Writer Relationship Specialty Start Date End Date FranBarbara 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 [employer] [address] [place] [address] PCP - General Internal Medicine 02/20/23 Entry Writer Relationship Specialty Start Date End Date FrnaBarbara 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 [employer] [address] [place] [address] PCP - General Internal Medicine 02/20/23 Entry Writer Relationship Specialty Start Date End Date FranBarbara 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 [employer] [address] [place] [address] PCP - General Internal Medicine 02/20/23 Entry Writer Relationship Specialty Start Date End Date Barbara Peters 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 [employer] [address] [place] [address] PCP - General Internal Medicine 02/20/23 Team Status: Inactive Member Role Status Dates Thom España DO Attending Provider Active S tart: December 13, 2024 End: December 13, 2024 Entry Writer Relationship Specialty Start Date End Date Barbara Peters 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 [employer] [address] [place] [address] PCP - General Internal Medicine 02/20/23 Entry Writer Relationship Specialty Start Date End Date Fran Barbaraliz Jackson 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 [employer] [address] [place] [address] PCP - General Family Medicine 01/17/25 Entry Writer Relationship Specialty Start Date End Date Barbara Peters, 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 [employer] [address] [place] [address] PCP - General Family Medicine 01/17/25 Entry Writer Relationship Specialty Start Date End Date Barbara Peters 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 [employer] [address] [place] [address] PCP - General [facility] Medicine 01/17/25 Entry Writer Relationship Specialty Start Date End Date Gera Burciaga MD PCP - General Family Medicine 12/16/23 Entry Writer Relationship Specialty Start Date End Date Gera Burciaga MD PCP - General Family Medicine 12/16/23 Goals (unrecognized section and content) Goals may be documented in a n alternate section Scheduled Active and Recently Administ ered Medications (unrecognized section and content) Medication Order 06/15/2024 06/16/2024 06/17/2024 aprepitant (Emend) capsule 40 mg 40 mg, oral, Daily, First dose on Fri06/17/24 at 1230, Preprocedure 1230 (Due) oxygen (O2) therapy inhalation, Continuous - , First dose on Lorraine 06/17/24 at 1245, Recovery (only), Device: Nasal Cannula, Rate in liters per minute: 2 LPM, Keep O2 Sat Above: 92% 1245 (Due) Continuous Medication Order 06/15/2024 06/16/2024 06/17/2024 lactated Ringer's infusion 20 mL/hr, intravenous, Continuous, Starting on Fri06/17/24 at 0715, Preprocedure 0717 ([facility] ider: Janine Menchaca RN)0737 (Paused - Provider: KEITH Gan - Comment: Switch to gravity)0738 (New Bag - Provider: KEITH Gan)0740 (Canceled Entry - Provider: KEITH Gan - Comment: Switch to gravity)0741 (New Bag - Provider: KEITH Gan)1140 (Stopped - Provider: KEITH Gan)1200 (Continued from OR - Provider: Malena Jaramillo, CECE)1315 (Stopped - Provider: Reanna Peterson RN) lactated [...] severe (7-10), second line, Starting on Lorraine 24 at 1224, Recovery (only), When able to take oral medications., If ordered PRN for pain, nurse is permitted to administer this medication for higher pain scores based on patient preference? Yes oxyCODONE (Roxicodone) immediate release tablet 5 mg 5 mg, oral, Every 4 hours PRN, pain moderate (4-6), second line, Starting on Lorraine 1024 at 1224, Recovery (only), When able to [...] solution (CANCELED) As needed, Starting on Lorraine 24 at 0830, Intraprocedure 0830 (Given - Provid [...] BE BASED ON THE PRIMARY CLINICAL RECORDS. [employer] provides no warranty or guarantee of the accuracy or completeness of information in this document.
== END 2025-03-04 07:28 | disposition home or self-care (01) ==
LOC: US 07:27
PROVIDERS: PCP Family Medicine; Visit Provider Physician Assistant
DX: N20.0 Calculus of kidney (principal)
CPT/HCPCS: 74018; 76770

== ENCOUNTER 2025-08-08 08:12 | Outpatient (OUT) | payer OTHER, SELFPAY ==
--- OUTSIDE RECORDS SUMMARY | 2025-08-02 16:30 | XMS_ITS | Encounter Summary ---
Author Organization [facility] [employer] [facility] tem Address [facility] [id number] [address] [place] [address] Care Team Providers Care Oracle Forms Developer Name Role Phone Liliana Valles Primary Care Provider + Reason for Visit * ReasonCommentsWeight Check Encounter Details DateTypeDepartmentCare Team (Latest Contact Info)Hbudjpbtkgx96/18/2025 4:30 PM ESTOffice Visit [facility] Internal [facility] - Family Medicine [address] [place] [address] Gera Teresa, DO [address] [facility], [place] [address] Overweight (Primary Dx); Essential hypertension Social History Tobacco UseTypesPacks/DayYears UsedDateSmoking Tobacco: FormerCigarettes0.218 1986 - 2004Smokeless Tobacco: NeverAlcohol UseStandard Drinks/WeekCommentsNot Currently0 (1 standard drink = 0.6 oz pure alcohol)[facility] UtilitiesAnswerDate RecordedIn the past 12 months has the [employer], gas, oil, or water [employer] threatened to shut off services in your home?No01/17/2025Social Connection and Isolation PanelAnswerDate RecordedIn a typical week, how many times do you talk on the phone with family, friends, or neighbors?More than three times a week 10/23/2022How often do you get together with friends or relatives?Twice a week 10/23/2022How often do you attend tenriism or lutheran services?More than 4 times per year10/23/2022o you belong to any clubs or organizations such as tenriism groups, unions, fraternal or athletic groups, or school groups?No10/23/2022How often do you attend meetings of the clubs or organizations you belong to?Never 10/23/2022re you , , , , never , or living with a partner?Vtkwopw0910/23/2022Overall Financial Resource Strain (CARDIA)AnswerDate RecordedHow hard is it for you to pay for the very basics like food, housing, medical care, and heating?Not very hard12/29/2024PHQ-2Answer Date RecordedTotal Neqdp89610/02/2024Finbe[facility] of Occupational Health - Occupational Stress QuestionnaireAnswerDate RecordedDo you feel stress - tense, restless, nervous, or anxious, or unable to sleep at night because yourmind is troubled all the time - these days?To some kqyvbc1710/23/2022RAPARE - TransportationAnswerDate RecordedIn the past 12 months, has lack of transportation kept you from medical appointments or from getting medications?No 01/17/2025In the past 12 months, has lack of transportation kept you from meetings, work, or from getting things needed for daily living?No01/17/2025 AUDIT-CAnswerDate RecordedQ1: How often do you have a drink containing alcohol? Never07/12/2025Q2: How many drinks containing alcohol do you have on a typical day when you are drinking?Patient does not drink07/12/2025Q3: How often do you have six or more drinks on one occasion?Never07/12/2025Exercise Vital SignAnswer Date RecordedOn average, how many days per week do you engage in moderate to strenuous exercise (like a brisk walk)?5 days08/02/2025On average, how many minutes do you engage in exercise at this level?10 min08/02/2025Housing InstabilityAnswerDate RecordedAre you worried or concerned that in the next two months you may not have stable housing that you own, rent or stay in as a part of a household?No01/17/2025hildcareAnswerDate RecordedDo problems getting child care sitter make 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 work or study?No10/23/2022EmploymentAnswerDate RecordedDo you need help finding a local career center and/or a training program?No10/23/2022Hunger ScreeningAnswerDate RecordedWithin the past 12 months we worried whether our food would run out before we got money to buy more.Never True08/02/2025Within the past 12 months the food we bought just didn't last and we didn't have money to get more.Never True08/02/2025Purpose - LifeAnswerDate RecordedI have a purpose and direction in my life.Strongly Agree10/23/2022 EducationAnswerDate RecordedWhat is the highest level of school you have completed or the highest degree you have received?Some college, no degree 10/23/2022CommentsNoSex and Gender InformationValueDate RecordedSex Assigned at BirthNot on fileLegal WuoUwexdb82/06/2015 11:36 AM EDTGender IdentityNot on fileSexual OrientationNot on filedocumented as of this encounter Last Filed Vital Signs Vital SignReadingTime TakenCommentsBlood Travsesr815/7008/02/2025 4:36 PM EST Wgfbv997908/02/2025 4:36 PM MKQKvqicjpvnxl42.8 ??C (98.2 ??F)08/02/2025 4:36 PM ESTRespiratory Mwda149010/02/2024 4:36 PM ESTOxygen Autmwgxlqt88%08/02/2025 4:36 PM ESTInhaled Oxygen Concentration--Yulhla71.6 kg (177 lb 12.8 oz)08/02/2025 4:36 PM KQCSjcppa599.1 cm (5' 5 )08/02/2025 4:36 PM ESTBody Mass Index29.59 08/02/2025 4:36 PM ESTdocumented in this encounter Progress Notes * Gera Teresa, DO - 08/02/2025 4:30 PM EST Subjective Patient ID: Yani Reece is a 65 y.o. female. Yani presents for a weight recheck. She is taking phentermine and not having any side effects. Sheis exercising. She walks a lot at work. She is reducing her portion sizes. She has no new concerns today. The following portions of the patient's history were reviewed and updated as appropriate: allergies, current medications, past family history, past medical history, past social history, past surgicalhistory, problem list, and medication reconciliation was completed including current medication andpost discharge medication. Review of Systems Constitutional: Positive for activity change and appetite change. Respiratory: Negative. Cardiovascular: Negative. Neurological: Negative. Psychiatric/Behavioral: Negative. Objective Physical Exam Vitals reviewed. Constitutional: General: She is not in acute distress. Appearance: She is overweight. She is not ill-appearing. Cardiovascular: Rate and Rhythm: Normal rate and regular rhythm. Heart sounds: Normal heart sounds. No murmur heard. Pulmonary: Effort: Pulmonary effort is normal. No respiratory distress. Breath sounds: Normal breath sounds. No wheezing, rhonchi or rales. Musculoskeletal: Cervical back: Neck supple. Neurological: General: No focal deficit present. Mental Status: She is alert and oriented to person, place, and time. Cranial Nerves: Cranial nerves 2-12 are intact. Gait: Gait is intact. Assessment/Plan Yani was seen today for weight check. Diagnoses and all orders for this visit: Essential hypertension She has a cardiovascular risk factor and can continue weight loss regimen down to 27% BMI Overweight - phentermine 37.5 MG capsule; Take 1 capsule (37.5 mg total) by mouth every morning before breakfast. She continues to lose weight with phentermine. She does not have any side effects. She has completed the 2nd month of her first 3 month course of phentermine. We will continue phentermine for anothermonth and then recheck.. documented in this encounter Plan of Treatment DateTypeDepartmentCare Team (Latest Contact Info)Ylfijwlsqow81/22/2025 11:30 AM ESTOffice Visit [facility] [address] [place] [address] Gera Teresa DO [address], [facility] [place] [address] 11/08/2025 11:45 AM ESTOffice Visit [facility]Sleep Medicine [address] [place] [address] Annetta Trujillo MD [address] [facility] [address] [place] [address] documented as of this encounter Goals GoalPatient Goal TypeAssociated ProblemsRecent ProgressPatient-Stated?Author Home with self care Lizebth Wagner, CECE Note: Evaluation of progress towards goal: Plans to return home with self care. documented as of this encounter Visit Diagnoses Diagnosis Overweight- Primary Essential hypertension Unspecified essential hypertension documented in this encounter Additional Health Concerns AssessmentNoted TimePHQ-9 Depression Total Score: 4:35 PM ESTA Body Mass Index follow-up plan has been documented for the utayqts3206/07/2025 1:42 PM EDTdocumented as of this encounter Care Teams Team MemberRelationshipSpecialtyStart DateEnd Date Liliana Valles, GLAZE WIPER-ESCALATION ENGINEER [address] [facility] [place] [address] PCP - GeneralFamily Medicine03/31/25documented as of this encounter
--- OUTSIDE RECORDS SUMMARY | 2025-08-08 08:15 | XMS_ITS | Clinical Summary ---
Author Organization [facility] Healthcare Address [address] [place] [address] Care Team Providers Care Topography Technician Name Role Phone Gera Teresa MD Primary Care Provider [phone] Allergies No known active allergies Medications MedicationSigDispense QuantityRefillsLast FilledStart DateEnd DateStatus aspirin 81 MG EC tablet 1 (one) time each day at the same timeActive cyproheptadine (Periactin) 4 MG tablet Take 1 tablet by mouth at bedtimeActive losartan (Cozaar) 50 MG tablet Take 50 mg by mouth DailyActive montelukast (Singulair) 10 MG tablet Take 10 mg by mouth at bedtimeActive alendronate (Fosamax) 70 MG tablet Take 70 mg by mouth every 7 (seven) days Take in the morning with a full glass of water, on an empty stomach, and do not take anything else by mouth or lie down for the next 30 min.Active budesonide-formoterol (Symbicort) 160-4.5 MCG/ACT inhaler Indications:Asthma, allergic, mild intermittent, uncomplicated (HCC)Inhale 2 puffs in the morning and 2 puffs before bedtime. 1 each ctive Fluticasone Propionate (Xhance) 93 MCG/ACT Exhaler Suspension Indications:Recurrent sinus infectionsAdminister 1 spray into affected nostril(s) in the morning and 1 spray before bedtime. 16 mL ctive omeprazole (PriLOSEC) [address] capsule Take 20 mg by mouth in the morning.01/28/2024ctive methIMAzole (Tapazole) 10 MG tablet Indications:Thyrotoxicosis with diffuse goiter without thyrotoxic crisis or stormTAKE 1 TABLET BY MOUTH 3 (THREE) days a WEEK 70 tablet 5Active Active Problems ProblemNoted DateDiagnosed DateChronic pykgbfrpckrg42/29/2024Nasal polyp 01/12/2024Moderate persistent asthma without dfygtxuwddql36/23/2023alculus of koxlqw0810/25/2022raves' dsehymm8210/25/20224342Ehufhqxhhbqzcfy62/10/2023OSA (obstructive sleep apnea)10/25/2022Obesity (BMI 30-39.9)10/25/2022Overweight with body mass index (BMI) 25.0-29.9010/25/2022ulmonary debrcrrm26/10/2023 Cendrhjeghv79/03/2020Medullary cystic bpgyzg3912/17/2019Essential hypertension 11/26/2019 Family History Medical HistoryRelationNameCommentsNo Known ProblemsBrotherCancerFatherDonald DarrDiabetesFatherDonald DarrLeukemiaFatherDonald DarrDiabetesMotherCarolyn BaldwinStrokeMotherCarolyn BaldwinNo Known ProblemsSisterRelationNameStatus CommentsBrotherAliveDaughterAliveFatherDonald DarrDeceasedMotherCarolyn Rodriguez DeceasedSisterAliveSon 1AliveSon 2Deceased Social History Tobacco UseTypesPacks/DayYears UsedDateSmoking Tobacco: FormerSmokeless Tobacco: Never Tobacco Cessation:Counseling Given: Not Answered Alcohol UseStandard Drinks/WeekCommentsYes0 (1 standard drink = 0.6 oz pure alcohol)SociallyCommentsUnknownSex and Gender InformationValueDate RecordedSex Assigned at TqgspKwupvj00/22/2024 9:30 PM EDTLegal SexFemale 11/27/2022 11:38 PM EDTGender YtrobublUgqhtx35/22/2024 9:30 PM EDTSexual OrientationNot on file Last Filed Vital Signs Vital SignReadingTime TakenCommentsBlood Zdktovpx263/8406 8:59 AM EDT Qyshi2055 8:59 AM EDTTemperature--Respiratory Blff3262 8:59 AM EDTOxygen Giwcymfqal00%03/02/2025 8:59 AM EDTInhaled Oxygen Concentration-- Amxcow86.4 kg (186 lb)03/02/2025 8:59 AM RNXQuwtoo199.1 cm (5' 5 )03/02/2025 8:59 AM EDTBody Mass Index30.95003/02/2025 8:59 AM EDT Plan of Treatment DateTypeDepartmentCare Team (Latest Contact Info)Hhhzymjquwr19/17/2025 2:50 PM ESTOffice Visit [facility] [address] [place] [address] Manju Solo MD [address] [place] [address] Health MaintenanceDue DateLast DoneCommentsCT Yjojagoqkriz1962FIT-DNA 1960FIT1960FOBT1960 0774Vnnjaixrqnjzh1962ap Smear1983 Cervical Cancer Wafizzwjt11/17/1992HPV/Ugbakq8703/01/1992COVID-19 Vaccine ( season)501/, 12/08/2020, 11/08/2020Influenza Vaccine (#1)/06/2024, 06/19/2023, 06/27/2022, Additional history exists Ntpntlehp85/20/742198/, 11/05/2023, 11/05/2023, Additional history exists Bsogsxvzgui21/05/301354/01/2025, 10/20/2024olorectal Cancer Dclyfjcab09/05/2035 Pneumococcal Vaccine: Pediatrics (0 to 5 Years) and At-Risk Patients (6 to 64 Years)Aged OutNo longer eligible based on patient's age to complete this topic Insurance * Guarantor: Clarissa Reece TypeRelation to PatientDate of BirthPhone Billing AddressPersonal/TdxnxrJfkr1960 [facility] [address] [address] Care Teams Team MemberRelationshipSpecialtyStart DateEnd Date Gera Teresa MD [address] [facility], [place] [address] [facility] - [facility]12/16/23
--- OUTSIDE RECORDS SUMMARY | 2025-08-08 08:15 | XMS_ITS | Encounter Summary ---
Author Organization [facility] tem Address [facility] [id number] [address] [place] [address] Care Team Providers Care Cnc Maintenance Technician Name Role Phone Liliana Valles APRN-DIRECTOR OF RESTAURANTS Primary Care Provider + Encounter Details DateTypeDepartmentCare Team (Latest Contact Info)Msesxuxnpbm84/22/2025Results Follow-Up [facility] Internal Medicine - Family Medicine [address] [place] [address] Gera Teresa, DO [address] [place] [address] Lipid profile, Comprehensive metabolic panel Social History Tobacco UseTypesPacks/DayYears UsedDateSmoking Tobacco: FormerCigarettes0.218 1986 - 2004Smokeless Tobacco: NeverAlcohol UseStandard Drinks/WeekCommentsNot Currently0 (1 standard drink = 0.6 oz pure alcohol)[facility] UtilitiesAnswerDate RecordedIn the past 12 months has the [employer], gas, oil, or water [employer] threatened to shut off services in your home?No01/17/2025Social Connection and Isolation PanelAnswerDate RecordedIn a typical week, how many times do you talk on the phone with family, friends, or neighbors?More than three times a week 10/23/2022How often do you get together with friends or relatives?Twice a week 10/23/2022How often do you attend hindu or jehovah's witness services?More than 4 times per year10/23/2022o you belong to any clubs or organizations such as hindu groups, unions, fraternal or athletic groups, or school groups?No10/23/2022How often do you attend meetings of the clubs or organizations you belong to?Never 10/23/2022re you , , , , never , or living with a partner?Xxwfznq8510/23/2022Overall Financial Resource Strain (CARDIA)AnswerDate RecordedHow hard is it for you to pay for the very basics like food, housing, medical care, and heating?Not very hard12/29/2024PHQ-2Answer Date RecordedTotal Wxwox71810/02/2024[facility] [place] of Occupational Health - Occupational Stress QuestionnaireAnswerDate RecordedDo you feel stress - tense, restless, nervous, or anxious, or unable to sleep at night because yourmind is troubled all the time - these days?To some sxnnow1110/23/2022RAPARE - TransportationAnswerDate RecordedIn the past 12 months, [...] part of a household?No01/17/2025hildcareAnswerDate 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 [...] InformationValueDate RecordedSex Assigned at BirthNot on fileLegal LymJbrptc10/06/2015 11:36 AM EDTGender IdentityNot on fileSexual OrientationNot on filedocumented as of this encounter Functional Status * AUDIT-C ScoreAnswerDate of NkzvxdhcsoGqnhul028/28/2025 12:31 PM Argenis Aggarwal CMA * QuestionAnswerDate of AssessmentAuthorQ1: How often do you have a drink containing alcohol?Never07/12/2025 12:31 PM Argenis Aggarwal CMAQ2: How many drinks containing alcohol do you have on a typical day when you are drinking?Patient does not drink07/12/2025 12:31 PM Argenis Aggarwal CMA Q3: How often do you have six or more drinks on one occasion?Never07/12/2025 12:31 PM Argenis Aggarwal CMA documented as of this encounter Plan of Treatment DateTypeDepartmentCare Team (Latest Contact Info)Qjkpcujzwlv55/22/2025 11:30 AM ESTOffice Visit [facility] [address] [place] [address] Gera Teresa DO [address], [place] [address] 11/08/2025 11:45 AM ESTOffice Visit [facility] Pulmonary/Sleep Medicine [address] [place] [address] Annetta Trujillo MD [address] [facility] [address] [place] [address] documented as of this encounter Goals GoalPatient Goal TypeAssociated ProblemsRecent ProgressPatient-Stated?Author Home with self care Lizbeth Wagner, RN Note: Evaluation of progress towards goal: Plans to return home with self care. documented as of this encounter Visit Diagnoses Not on filedocumented in this encounter Additional Health Concerns InfectionOnset DateLast IndicatedResolved TimeRespiratory Rule-Out07/04/2025 8:37 AM EDTAssessmentNoted TimePHQ-9 Depression Total Score: 11:00 AM EDTA Body Mass Index follow-up plan has been documented for the sgwzjls4006/07/2025 1:42 PM EDTdocumented as of this encounter Care Teams Team MemberRelationshipSpecialtyStart DateEnd Date Liliana Valles, PACKING AND STAMPING MACHINE OPERATOR-DIRECTOR OF RESTAURANTS [address] [place] [address] PCP - GeneralFamily Medicine03/31/25documented as of this encounter
--- NOTE | 2025-08-08 08:16 | US_ITS ---
The [address] [address] Patient Name: POOJA JOSEPH MRN: [id number] date: 1960 Sex: F Assigned Patient Location: [place] Current Patient Location: [place] Accession/Order Number: [id number] Exam Date: 08/08/2025 08:18 Report Date: 08/08/2025 09:23 At the request of: HALLIE LLOYD MD Procedure: US renal BI BILATERAL RENAL AND BLADDER ULTRASOUND CLINICAL HISTORY: Left Kidney Stone with recent lithotripsy and stent. Left flank pain. COMPARISON: 03/04/2025 Estimation of renal size is approximately 9.6 cm on the right and 9.4 cm on the left. Echogenic foci with twinkle artifact are seen bilaterally. The largest on the right is at the superior pole measuring 8 mm and on the left measuring 7 mm. No hydronephrosis is seen. No renal mass lesions were imaged. There is no perinephric fluid. The urinary bladder is poorly distended with a volume of 33 mL. No contour or intraluminal abnormalities are seen. US/US renal BI IMPRESSION: SUSPECTED RENAL STONES. NO OBSTRUCTIVE UROPATHY. Impression dictated by: Sallie Stovall M.D. 08/08/2025 9:23 AM Dictation Location: [place] [address] Electronically authenticated by: [id number] Y Date: 08/08/2025 09:23
--- OUTSIDE RECORDS SUMMARY | 2025-08-08 08:16 | XMS_ITS | Encounter Summary ---
Author Organization [facility] tem Address [facility] [id number] [address] [place] [address] Care Team Providers Care Printed Circuit Boards Plasma Etcher Name Role Phone Hai, Liliana SAMSON Primary Care Provider + Reason for Visit * ReasonOnset DateCommentsMed Ljbnlu7908/02/2025 Encounter Details DateTypeDepartmentCare Team (Latest Contact Info)Gzgavtsggtx65/18/2025[facility] [address] [facility] [place] [address] Robyn Evans CMA Essential (primary) hypertension Social History Tobacco UseTypesPacks/DayYears UsedDateSmoking Tobacco: FormerCigarettes0.218 1986 - 2004Smokeless Tobacco: NeverAlcohol UseStandard Drinks/WeekCommentsNot Currently0 (1 standard drink = 0.6 oz pure alcohol)[facility] UtilitiesAnswerDate RecordedIn the past 12 months has the [employer], gas, oil, or water [employer] threatened to shut off services in your home?No01/17/2025Social Connection and Isolation PanelAnswerDate RecordedIn a typical week, how many times do you talk on the phone with family, friends, or neighbors?More than three times a week 10/23/2022How often do you get together with friends or relatives?Twice a week 10/23/2022How often do you attend moravian or samaritan services?More than 4 times per year10/23/2022o you belong to any clubs or organizations such as moravian groups, unions, fraternal or athletic groups, or school groups?No10/23/2022How often do you attend meetings of the clubs or organizations you belong to?Never 10/23/2022re you , , , , never , or living with a partner?Kivdxok3210/23/2022Overall Financial Resource Strain (CARDIA)AnswerDate RecordedHow hard is it for you to pay for the very basics like food, housing, medical care, and heating?Not very hard12/29/2024PHQ-2Answer Date RecordedTotal Iavfl69910/02/2024Fin[facility] [place] of Occupational Health - Occupational Stress QuestionnaireAnswerDate RecordedDo you feel stress - tense, restless, nervous, or anxious, or unable to sleep at night because yourmind is troubled all the time - these days?To some dedcau0110/23/2022RAPARE - TransportationAnswerDate RecordedIn the past 12 months, [...] of a household?No01/17/2025hildcareAnswerDate RecordedDo problems getting child adolescent 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 make 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 work [...] InformationValueDate RecordedSex Assigned at BirthNot on fileLegal KlmPbiqmo08/06/2015 11:36 AM EDTGender IdentityNot on fileSexual OrientationNot on filedocumented as of this encounter Plan of Treatment DateTypeDepartmentCare Team (Latest Contact Info)Rizmjlfsmfw34/22/2025 11:30 AM ESTOffice Visit [facility] [address] [place] [address] Gera Teresa DO [address], [place] [address] 11/08/2025 11:45 AM ESTOffice Visit [facility] Pul[facility]/Sleep Medicine [address] [place] [address] Annetta Trujillo MD [address] [facility] [address] [place], [place] [id number] documented as of this encounter Goals GoalPatient Goal TypeAssociated ProblemsRecent ProgressPatient-Stated?Author Home with self care Lizbeth Wagner RN Note: Evaluation of progress towards goal: Plans to return home with self care. documented as of this encounter Visit Diagnoses Diagnosis Essential (primary) hypertension Unspecified essential hypertension documented in this encounter Additional Health Concerns AssessmentNoted TimePHQ-9 Depression Total Score: 4:35 PM ESTA Body Mass Index follow-up plan has been documented for the bnebrka9806/07/2025 1:42 PM EDTdocumented as of this encounter Care Teams Team MemberRelationshipSpecialtyStart DateEnd Date Liliana Valles, ARELI-LEAD MATERIAL HANDLER [address] [place] [address] PCP - GeneralFamily Medicine03/31/25documented as of this encounter
--- OUTSIDE RECORDS SUMMARY | 2025-08-08 08:16 | XMS_ITS | Clinical Summary ---
Author Organization [facility] Address [address] [place] [address] Phone Care Team Providers Care Dinkey Operator Slate Name Role Phone Unavailable Primary Care Provider Unavailabl e Allergies No known active allergies Medications MedicationSigDispense QuantityRefillsLast FilledStart DateEnd DateStatus alendronate (Fosamax) 70 mg tablet Take 1 tablet (70 mg) by mouth once a week.06/02/2023ctive aspirin 81 mg EC tablet 1 (one) time each day at the same timeActive budesonide-formoteroL (Symbicort) 160-4.5 mcg/actuation inhaler Inhale 2 puffs twice a day.04/21/2023ctive cyproheptadine (Periactin) 4 mg tablet Take 1 tablet (4 mg) by mouth once daily at bedtime.12/17/2023ctive losartan (Cozaar) 50 mg tablet Take 1 tablet (50 mg) by mouth once daily.02/06/2024ctive montelukast (Singulair) 10 mg tablet Take 1 tablet (10 mg) by mouth once daily at bedtime.12/17/2023ctive methIMAzole (Tapazole) 10 mg tablet 1 tablet (10 mg) 3 (three) times a week. Friday, Friday, FridayActive fluticasone (Flonase Sensimist) 27.5 mcg/actuation nasal spray Administer 2 sprays into each nostril once daily.Active traMADol (Ultram) 50 mg tablet Indications:Surgery, elective,Chronic ethmoidal sinusitisTake 1 tablet (50 mg) by mouth every 6 hours if needed for severe pain (7 - 10). 16 tablet 06/17/2024ctive oxymetazoline (Afrin, oxymetazoline,) 0.05 % nasal spray Indications:Surgery, elective,Chronic ethmoidal sinusitisAdminister 2 sprays into each nostril every 6 hours if needed (bleeding). Do not use for more than 3 days. 30 mL 06/17/2024ctive predniSONE (Deltasone) 10 mg tablet Indications:Chronic ethmoidal sinusitis,Nasal ppuqi16rw PO Qday for 3 days, 20mg PO Qday for 3 days, 10 mg PO Qday for 4 days 19 tablet 06/30/2024ctive mometasone furoate, bulk, 100 % powder Indications:Nasal polypCompound 2 mg capsule to be added to sinus rinse twice daily. 90 g ctive Active Problems ProblemNoted DateDiagnosed DateHTN (hypertension)06/17/20247821Iidqwz00/03/2024OSA (obstructive sleep apnea)06/17/2024History of migraine khcocfqdu71/03/2024 Evmtjlsjsejsqus78/03/2024Gastroesophageal reflux kvickor4506/17/2024Hiatal hernia 06/17/20246207Frcusjdnelcqmoy28/03/2024eviated nasal ekezqn6704/07/2024hronic ethmoidal aehwkhfbq18/24/2024 Encounters DateTypeDepartmentCare UjjwJvzleukbrag40/24/2025 9:15 AM EDTOffice Visit [facility] [address] [place] [address] Toni Bansal MD Decreased sense of smell (Primary Dx); Chronic ethmoidal sinusitis Discharge Disposition: Home06/01/2025Travelfrom Last 3 Months Social History Tobacco UseTypesPacks/DayYears UsedDateSmoking Tobacco: FormerCigarettes Smokeless Tobacco: Never Tobacco Cessation:Counseling Given: Not Answered Alcohol UseStandard Drinks/WeekCommentsNot Currently0 (1 standard drink = 0.6 oz pure alcohol)occasionalPHQ-2AnswerDate RecordedPatient Health Questionnaire-2 Uodoj418CommentsNoSex and Gender InformationValueDate Recorded Sex Assigned at GzkogQyuqjf06/04/2024 7:06 AM EDTLegal RsjJojocs87/25/2022 1:41 PM ESTGender PnxoenuhRoosee78/04/2024 7:06 AM EDTSexual OrientationStraight 06/18/2024 7:07 AM EDT Last Filed Vital Signs Vital SignReadingTime TakenCommentsBlood Xhsbaprq556/5610 1:30 PM EDT Cprec9499 1:14 PM GHDGocadpfrrwh62.4 ??C (97.5 ??F)06/17/2024 1:30 PM EDTRespiratory Tucx8013 1:30 PM EDTOxygen Uhtylgbmcz20%06/17/2024 1:30 PM EDTInhaled Oxygen Concentration--Mhyhin77.9 kg (187 lb 3.2 oz)06/08/2025 9:03 AM CFSMcdhlc063.1 cm (5' 5 )06/08/2025 9:03 AM EDTBody Mass Index31.1509 9:03 AM EDT Plan of Treatment DateTypeDepartmentCare Team (Latest Contact Info)Ohpnhgxzuey99/23/2026 9:15 AM EDTOffice Visit [facility] [address] [place] [phone] Toni Bansal MD [address] [place] [address] Health MaintenanceDue DateLast DoneCommentsCT Rmqfuvsxkoup1962FIT-DNA (Cologuard)1962FIT1962HIV Ruhwpezlc1962Lipid Panel1962 Rfsoyiednyaze1962TSH Level1962MMR Vaccines (1 of 1 - Standard series)1963Hepatitis C Lzfusyngq91/17/1980Cervical Cancer Screening 1983HPV/Rnytqw3203/01/1983Pap Smear1983Influenza Vaccine (#1) 510/06/2024, 06/19/2023, 06/27/2022, Additional history existsCOVID-19 Vaccine ( season)501/, 12/08/2020, 11/08/2020 Ycwgkdhta82/20/793764/, 12/02/2024, 11/05/2023, Additional history exists Yearly Adult Yudhvluk62/20/828111/, 05/06/2024, 04/17/2023iabetes Smhfwqnce304DTaP/Tdap/Td Vaccines (3 - Td or Tdap)09/13/2034 09/13/2024, 04/08/20143503Useecueuefj20, 10/18/2024, 10/14/2019 Colorectal Cancer Dwvyfwend72/05/2035Pneumococcal YbvbtmdAgsqchtek96/28/2023one Density HvwrPceexamtycrn29/14/2023Zoster MaiurtbiZrjuptxzz54/22/2023, 04/11/2023 RSV High Risk: (Elderly (60+) or Population)Aiyvrofse97/30/2024HIB VaccinesAged OutNo longer eligible based on patient's age to complete this topic HPV VaccinesAged OutNo longer eligible based on patient's age to complete this topicHepatitis A VaccinesAged OutNo longer eligible based on patient's age to complete this topicHepatitis B VaccinesAged OutNo longer eligible based on patient's age to complete this topicIPV VaccinesAged OutNo longer eligible based on patient's age to complete this topicMeningococcal VaccineAged OutNo longer eligible based on patient's age to complete this topicRotavirus VaccinesAged Out No longer eligible based on patient's age to complete this topic Medical Devices ImplantedTypeAreaManufacturerDevice IdentifierShelf Expiration DateModel / Serial / LotImplant, Propel Contour Sinus - [id number] Implanted:Qty: 1 on 06/17/20[facility]: NoseINTERSECT [id number] / / [id number], Propel Contour Sinus - [id number] Implanted:Qty: 1 on 06/17/2024 [facility]: NoseINTERSECT [id number] / / [id number] Procedures Procedure NamePriorityDate/TimeAssociated DiagnosisCommentsBASIC METABOLIC PANEL Nfznjzv3206/04/2024 8:59 AM EDT Surgery, elective Chronic ethmoidal sinusitis HTN (hypertension), benign from Last 3 Months or Most Recently Relevant to Health Maintenance Results * (ABNORMAL) Basic Metabolic Panel (06/04/2024 8:59 AM EDT)ComponentValueRef RangeTest MethodAnalysis TimePerformed AtPathologist NpjhhhlkyXvwhvyg491(H)74 - 99 mg/dL LAB CHEMISTRY METHOD 06/04/2024 1:34 PM [facility] PACYijuqs091362 - 145 mmol/L LAB CHEMISTRY METHOD 06/04/2024 1:34 PM [facility] LABPotassium4.73.5 - 5.3 mmol/L LAB CHEMISTRY METHOD 06/04/2024 1:34 PM [facility] DMEDacmxlad30772 - 107 mmol/L LAB CHEMISTRY METHOD 06/04/2024 1:34 PM [facility] DHYIzugscesrpr1138 - 32 mmol/L LAB CHEMISTRY METHOD 06/04/2024 1:34 PM [facility] LABAnion Sjc4458 - 20 mmol/L LAB CHEMISTRY METHOD 06/04/2024 1:34 PM [facility] LABUrea Fqhiutfd672 - 23 mg/dL LAB CHEMISTRY METHOD 06/04/2024 1:34 PM [facility] LABCreatinine0.590.50 - 1.05 mg/dL LAB CHEMISTRY METHOD 06/04/2024 1:34 PM [facility] LABeGFR>90>60 mL/min/1.73m*2 LAB CHEMISTRY METHOD 06/04/2024 1:34 PM [facility] LABComment: Calculations of estimated GFR are performed using the 2020 CKD-EPI Study Refit equation without therace variable for the IDMS-Traceable creatinine methods. https://jasn.asnjournals.org/content//ASN.4972749329 Calcium8.78.6 - 10.3 mg/dL LAB CHEMISTRY METHOD 06/04/2024 1:34 PM [facility] LABSpecimen (Source)Anatomical Location / LateralityCollection Method / VolumeCollection TimeReceived TimeBlood Venous blood specimen / UnknownVenipuncture / Reanvcd1606/04/2024 8:59 AM EDT 06/04/2024 8:59 AM EDT Narrative Authorizing ProviderResult TypeResult StatusMicveronica BURNETTE BLOOD ORDERABLESFinal ResultPerforming OrganizationAddressCity/State/ZIP CodePhone Number [facility] [address] [place] [address] from Last 3 Months or Most Recently Relevant to Health Maintenance Insurance MemberSubscriberPlan / Payer (Effective 2023-Present)Name:Yani Reece Relation to Subscriber:SelfName:Yani Reece Payer ID:[id number] Type:Not on file Address: [place] [id number]
--- OUTSIDE RECORDS SUMMARY | 2025-08-08 08:16 | XMS_ITS | Encounter Summary ---
Author Organization [employer] Address [id number] [address] [place] [address] Care Team Providers Care Front Office Agent Name Role Phone Liliana Valles Primary Care Provider + Encounter Details DateTypeDepartmentCare Team (Latest Contact Info)Witevuzhkkm01/18/2025Travel Social History Tobacco UseTypesPacks/DayYears UsedDateSmoking Tobacco: FormerCigarettes0.218 1986 - 2004Smokeless Tobacco: NeverAlcohol UseStandard Drinks/WeekCommentsNot Currently0 (1 standard drink = 0.6 oz pure alcohol)[facility] UtilitiesAnswerDate RecordedIn the past 12 months has the electric, gas, oil, or water Publicate threatened to shut off services in your home?No01/17/2025Social Connection and Isolation PanelAnswerDate RecordedIn a typical week, how many times do you talk on the phone with family, friends, or neighbors?More than three times a week 10/23/2022How often do you get together with friends or relatives?Twice a week 10/23/2022How often do you attend rastafari or mormonism services?More than 4 times per year10/23/2022o you belong to any clubs or organizations such as rastafari groups, unions, fraternal or athletic groups, or school groups?No10/23/2022How often do you attend meetings of the clubs or organizations you belong to?Never 10/23/2022re you , , , , never , or living with a partner?Ttmxmjh8310/23/2022Overall Financial Resource Strain (CARDIA)AnswerDate RecordedHow hard is it for you to pay for the very basics like food, housing, medical care, and heating?Not very hard12/29/2024PHQ-2Answer Date RecordedTotal Xunme22410/02/2024[facility] [place] of Occupational Health - Occupational Stress QuestionnaireAnswerDate RecordedDo you feel stress - tense, restless, nervous, or anxious, or unable to sleep at night because yourmind is troubled all the time - these days?To some qvmjty0110/23/2022RAPARE - TransportationAnswerDate RecordedIn the past 12 months, [...] of a household?No01/17/2025hildcareAnswerDate RecordedDo problems getting child protection specialist make 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 work [...] InformationValueDate RecordedSex Assigned at BirthNot on fileLegal SfsMqmkmg35/06/2015 11:36 AM EDTGender IdentityNot on fileSexual OrientationNot on filedocumented as of this encounter Plan of Treatment DateTypeDepartmentCare Team (Latest Contact Info)Vjkcbyvvdaj54/22/2025 11:30 AM ESTOffice Visit [facility] [address] [place] [phone] Gera Teresa DO [address], [place] [address] 11/08/2025 11:45 AM ESTOffice Visit [facility] [address] [place] [phone] Annetta Trujillo MD [address] [place], [place] [id number] documented as of this encounter Goals GoalPatient Goal TypeAssociated ProblemsRecent ProgressPatient-Stated?Author Home with self care Lizbeth Wagner, CECE Note: Evaluation of progress towards goal: Plans to return home with self care. documented as of this encounter Visit Diagnoses Not on filedocumented in this encounter Additional Health Concerns AssessmentNoted TimePHQ-9 Depression Total Score: 4:35 PM ESTA Body Mass Index follow-up plan has been documented for the xmqhlxb4406/07/2025 1:42 PM EDTdocumented as of this encounter Care Teams Team MemberRelationshipSpecialtyStart DateEnd Date Liliana Valles, OUTBOUND SALES AGENT-WORKDAY SENIOR ASSOCIATE [address] [place] [address] PCP - GeneralFamily Medicine03/31/25documented as of this encounter
--- OUTSIDE RECORDS SUMMARY | 2025-08-08 08:16 | XMS_ITS | Clinical Summary ---
Author Organization Appsembler tem Address [id number] [address] [place] [address] Care Team Providers Care Roll Tender Name Role Phone Liliana Valles Primary Care Provider + Allergies No known active allergies Medications MedicationSigDispense QuantityRefillsLast FilledStart DateEnd DateStatus aspirin 81 mg Take 1 tablet (81 mg total) by mouth in the morning.Active SYMBICORT 160-4.5 mcg/actuation inhaler Indications:Unspecified asthma, uncomplicatedINHALE 2 PUFFS BY MOUTH TWICE DAILY 10.2 g 503Active alendronate (FOSAMAX) 70 mg tablet Indications:Osteoporosis without current pathological fracture, unspecified osteoporosis typeTake 1 tablet (70 mg total) by mouth every 7 days. In a.m. with water on empty stomach, nothing else by mouth and remain upright for 30min 4 tablet 1105Active ferrous sulfate 325 (65 FE) MG tablet Take 1 tablet (325 mg total) by mouth daily with breakfast. 90 tablet 5Active Additional Information Patient taking differently:325 mg oral Daily with breakfast,Every other day, Reported on 08/02/2025 methIMAzole (TAPAZOLE) 10 mg tablet Take 1 tablet (10 mg total) by mouth 3 (three) times a week.5Active fluticasone propionate (FLONASE) 50 mcg/actuation nasal spray Administer 2 sprays into each nostril in the morning.5Active multivitamin tablet Take 1 tablet by mouth in the morning.5Active cyproheptadine (PERIACTIN) 4 mg tablet Indications:Migraine without aura, not intractable, without status migrainosus Take 1 tablet (4 mg total) by mouth once daily at bedtime.5Active montelukast (SINGULAIR) 10 mg tablet Indications:Allergic rhinitis, unspecifiedTake 1 tablet (10 mg total) by mouth nightly. 90 tablet 5Active rimegepant (NURTEC ODT) 75 mg disintegrating tablet Dissolve 1 tablet (75 mg total) on tongue once as needed for migraine for up to 1 dose. 1 tablet 5Active losartan (COZAAR) 50 mg tablet Indications:Essential (primary) hypertensionTake 1 tablet (50 mg total) by mouth every morning. 90 tablet 5Active budesonide-formoteroL (SYMBICORT) 80-4.5 mcg/actuation inhaler Twice daily5Active phentermine 37.5 MG capsule Indications:OverweightTake 1 capsule (37.5 mg total) by mouth every morning before breakfast. 30 capsule 5Active losartan (COZAAR) 50 mg tablet Indications:Essential (primary) hypertensionTAKE 1 TABLET BY MOUTH DAILY 90 tablet Discontinued(Reorder) phentermine 37.5 MG capsule Indications:Obesity (BMI 30-39.9)Take 1 capsule (37.5 mg total) by mouth every morning before breakfast. 30 capsule Discontinued(Reorder) Active Problems ProblemNoted DateDiagnosed UxtjQkphcmds53/20/2025bdominal pain01/17/2025Rectal polyp10/20/2024Personal history of adenomatous and serrated colon polyps 08/01/2024Hiatal qalwih2406/17/2024Gastroesophageal reflux wwzcssq5606/17/2024sthma 06/17/2024hronic ethmoidal tlyvvgiuu71/24/2024eviated nasal jhntha3704/07/2024 Kidney stone04/01/2024hronic sjykzyeehctd17/29/2024Nasal polyp01/12/2024 Moderate persistent asthma without ozrapoxxcmgw66/23/2023alculus of ureter 10/25/2022raves' egdaqeq3810/25/20226992Uyyxicepoyrquzx86/10/2023Overweight with body mass index (BMI) 25.0-29.9010/25/2022ulmonary hxodjsoq64/10/2023OSA (obstructive sleep apnea)10/25/20229636Jjpagrsepmt09Medullary cystic kidney /Essential bxltcnlonlxt37 Resolved Problems ProblemNoted DateDiagnosed DateResolved DatePneumonia of right upper lobe due to infectious vgwvfowh71SinusitisHypertension /Obesity (BMI 30-39.9) Encounters DateTypeDepartmentCare CsndTqdanokgtsm19/18/2025 4:30 PM ESTOffice Visit [facility] [address] [place] [address] Gera Teresa, Overweight (Primary Dx); Essential gbijluphuevl15/18/2025Refill [facility] [address] [place] [address] Robyn Evans CMA Essential (primary) ieufvewbhrsb98/18/3770Zzikwr77/17/0581Hdlwlv95/28/2025 12:30 PM EDTOffice Visit [facility] [address] [place] [address] Annetta Trujillo MD LILO (obstructive sleep apnea) (Primary Dx); Difficulty using continuous positive airway pressure (CPAP) nasal mask; Iron hksxzygfcs49/26/2922Jwetxt05/20/2025 4:30 PM EDTOffice Visit [facility] [address] [place] [address] Gera Teresa DO Overweight (Primary Dx); BMI 29.0-29.9,adult; Essential hypertension; Obesity (BMI 30-39.9); Other migraine without status migrainosus, not uemmegtmxfc04/20/2025 7:36 AM EDT - 07/04/2025 10:23 AM EDTEmergency [facility] [address] [place] [address] Maryam Han, Nonintractable headache, unspecified chronicity pattern, unspecified headache type (Primary Dx); Upper respiratory tract infection, unspecified type Discharge Disposition: Home07/04/20256125Foyzbp57/10/2025Orders Only [facility] [address] [place] [address] Ref Prov, Not In System 06/16/2025Orders Only [facility] [address] [place] [address] Ref Prov, Not In System 06/14/2025Orders Only [facility] [address] [place] [address] Ref Prov, Not In System 06/13/2025Results Follow-Up [facility] [address] [place] [address] Yudelka Crump CMA X-ray abdomen ap 1 view06/10/2025Orders Only [facility] [address] [place] [address] External, Scanning Provider 06/08/2025Refill [facility] [address] [place] [address] Robyn Evans CMA Migraine without aura, not intractable, without status migrainosus; Allergic rhinitis, czxmxtioket10/22/2025Results Follow-Up [facility] [address] [place] [address] Gera Teresa, DO Lipid profile, Comprehensive metabolic panel09/ 11:00 AM EDTOffice Visit [facility] [address] [place] [address] Gera Teresa, DO Well adult exam (Primary Dx); Migraine without aura, not intractable, without status migrainosus; Obesity (BMI 30-39.9); Mild intermittent asthma without cedshkdjrgbk99/19/5022Muxyii76/17/2025Travel 05/17/2025Results Follow-Up [facility] [address] [place] [address] Annetta Trujillo MD Iron and TIBC, Ziohafty82/30/2025Travelfrom Last 3 Months Immunizations ImmunizationAdministration DatesNext DueInfluenza (IM) Preservative Free 06/24/2024,06/13/2016,06/28/2015Influenza LAIV (Nasal)06/27/2022Influenza Nasal, Unspecified Crmafqbzcev95/23/2013Influenza Vaccine, Quadrivalent, Adjuvanted 06/19/2023Influenza, Injectable, Tewboztjekqm71/26/2018Influenza, Injectable, quadrivalent (PF)06/19/2023,06/27/2022,06/27/2021,06/16/2020,06/08/2019, 05/09/2018,05/09/2017Influenza, Jcgttzdisci30/05/2023,06/27/2022,06/27/2021, 06/16/2020,06/08/2019,05/09/2018,05/09/2017,06/13/2016,06/28/2015,09/06/2013 Pneumococcal Conjugate 20-cqdyny8304/11/2023RSV, bivalent, protein subunit RSVpreF, diluent reconstituted, 0.5 mL, PF09/13/2024Tdap1,04/08/2014 Zoster Vaccine Kvvavgvtscy25/22/2023,04/11/2023 Family History Medical HistoryRelationNameCommentsNo Known ProblemsBrotherKevin DarrCancer FatherDonald DarrDiabetesFatherDonald DarrAlcohol abuseMaternal Grandfather Viktor AurandLung cancerMaternal GrandfatherRobert AurandMental illnessMaternal GrandmotherDorothy AurandDiabetesMotherCarolyn BaldwinMental illnessMother Lula BaldwinMiscarriages / StillbirthsMotherCarolyn BaldwinStrokeMother Lula MadriddwinDiabetesPaternal GrandmotherClara DarrHypertensionSisterPamela ArcherDrug abuseSon 1Gregory KarshukSleep apneaSon 2Ted MasonIn Air ForceBreast cancerNeg HxRelationNameStatusCommentsBrotherKevin DarrAliveFatherDonald Ruperto AliveMaternal GrandfatherRobert AurandAliveMaternal GrandmotherDorothy Aurand AliveMotherCarolyn BaldwinAlivePaternal GrandmotherClara DarrAliveSisterPamela ArcherAliveSon 1Gregory KarshukDeceasedSon 2Ted MasonAlive Social History Tobacco UseTypesPacks/DayYears UsedDateSmoking Tobacco: FormerCigarettes0.218 1986 - 2004Smokeless Tobacco: Never Tobacco Cessation:Counseling Given: Not Answered Alcohol UseStandard Drinks/WeekCommentsNot Currently0 (1 standard drink = 0.6 oz pure alcohol)[facility] UtilitiesAnswerDate RecordedIn the past 12 months has the PO-MO, gas, oil, or water [employer] threatened to shut off services in your home?No01/17/2025Social Connection and Isolation PanelAnswerDate RecordedIn a typical week, how many times do you talk on the phone with family, friends, or neighbors?More than three times a week10/23/2022How often do you get together with friends or relatives?Twice a week10/23/2022How often do you attend yazdanism or confucianism services?More than 4 times per year10/23/2022o you belong to any clubs or organizations such as yazdanism groups, unions, fraternal or athletic tio ups, or school groups?No10/23/2022How often do you attend meetings of the clubs or organizations you belong to?Never10/23/2022re you , , , , never , or living with a partner?Iaqlklu1610/23/2022 Overall Financial Resource Strain (CARDIA)AnswerDate RecordedHow hard is it for you to pay for the very basics like food, housing, medical care, and heating?Not very hard12/29/2024PHQ-2AnswerDate RecordedTotal Fleza04310/02/2024[facility] [place] of Occupational Health - Occupational Stress QuestionnaireAnswerDate RecordedDo you feel stress - tense, restless, nervous, or anxious, or unable to sleep at night because yourmind is troubled all the time - these days?To some upkyzs4710/23/2022RAPARE - TransportationAnswerDate RecordedIn the past 12 months, has lack of transportation kept you from medical appointments or from getting medications?No01/17/2025In the past 12 months, has lack of transportation kept you from meetings, work, or from getting things needed for daily living?No01/17/2025UDIT-CAnswerDate RecordedQ1: How often do you have a drink containing alcohol?Never07/12/2025Q2: How many drinks containing alcohol do you have on a typical day when you are drinking?Patient does not drink 07/12/2025Q3: How often do you have six or more drinks on one occasion?Never 07/12/2025Exercise Vital SignAnswerDate RecordedOn average, how many days per week do you engage in moderate to strenuous exercise (like a brisk walk)?5 days 08/02/2025On average, how many minutes do you engage in exercise at this level? 10 min08/02/2025Housing InstabilityAnswerDate RecordedAre you worried or concerned that in the next two months you may not have stable housing that you own, rent or stay in as a part of a household?No01/17/2025hildcareAnswerDate RecordedDo problems getting child welfare caseworker make 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 work [...] a purpose and direction in my life.Strongly Agree10/23/2022EducationAnswerDate RecordedWhat is the highest level of school you have completed or the highest degree you have received?Some college, no fpeamh7110/23/2022CommentsNoSex and Gender InformationValue Date RecordedSex Assigned at BirthNot on fileLegal GsxIyuynw82/06/2015 11:36 AM EDTGender IdentityNot on fileSexual OrientationNot on file Last Filed Vital Signs Vital SignReadingTime TakenCommentsBlood Jxnolbtu814/7008/02/2025 4:36 PM EST Wubpr932108/02/2025 4:36 PM IZWByfhjlreqcz06.8 ??C (98.2 ??F)08/02/2025 4:36 PM ESTRespiratory Yzfh302410/02/2024 4:36 PM ESTOxygen Egwogqgbgs90%08/02/2025 4:36 PM ESTInhaled Oxygen Concentration--Fpjscu60.6 kg (177 lb 12.8 oz)08/02/2025 4:36 PM FEAHwjgky137.1 cm (5' 5 )08/02/2025 4:36 PM ESTBody Mass Index29.59 08/02/2025 4:36 PM EST Plan of Treatment DateTypeDepartmentCare Team (Latest Contact Info)Clsyksinwil20/22/2025 11:30 AM ESTOffice Visit [facility] [address] [place] [address] Gera Teresa DO [address] [place] [address] 11/08/2025 11:45 AM ESTOffice Visit [facility] [address] [place] [phone] Annetta Trujillo MD [address] [place], [place] [id number] Health MaintenanceDue DateLast CyvjEctgplkaFjhqfinih41/20/202603/20/2025, 11/05/2023, 11/02/2022, Additional history existsAdult BMI Follow Up Plan /dult BMI Ypbwgvtid96Depression Screening Tobacco Ockcqzoec35DTaP,Tdap and Td Vaccines (3 - Td or Tdap), 04/08/2014COVID-19 Vaccine Ecbwzbhqthxa34/13/2022, 12/08/2020, 11/08/2020Zoster (Shingles) VaccineCompleted 08/06/2023, 04/11/2023RSV ( or age 60+ yrs)Xdxkvwfvr02/30/2024Influenza KdcxadkVnoahirkw79/22/2025, 06/24/2024, 06/19/2023, Additional history exists Goals GoalPatient Goal TypeAssociated ProblemsRecent ProgressPatient-Stated?Author Home with self care Lizbeth Wagner, CECE Note: Evaluation of progress towards goal: Plans to return home with self care. Medical Devices Not on file Procedures Procedure NamePriorityDate/TimeAssociated DiagnosisCommentsSARS/FLU A+B/RSV BY NAAT/MOLECULAR (M4RT COLLECTION TUBE)STAT1 7:42 AM EDT HEPATITIS C VIRUS QUANTITATIVE BY JDIYCvcbeec59/10/2025 6:50 AM EDTUS, RETROPERITNL ABD, OPGZsiorhf29/02/2025 10:08 AM EDTXR ABDOMEN AP 1 VWRoutine 06/14/2025 1:23 PM EDTCOMPREHENSIVE METABOLIC ISQHWVatpjrz07/19/2025 12:01 PM EDT Well adult exam LIPID ZXQYHLNMpsigub03/19/2025 12:01 PM EDT Well adult exam GVYMRHABVusrcbj58/30/2025 8:51 AM EDT Iron deficiency IRON AND BHXMNlficsm93/30/2025 8:51 AM EDT Iron deficiency MAMM SCREENING BILATERAL W ARIXkowkjk60/20/2025 8:54 AM EDT Encounter for screening mammogram for malignant neoplasm of breast from Last 3 Months or Most Recently Relevant to Health Maintenance Results * SARS/FLU A+B/RSV by NAAT/Molecular (M4RT Collection Tube) (07/04/2025 7:42 AM EDT)ComponentValueRef RangeTest MethodAnalysis TimePerformed AtPathologist SignatureFLU A DIPDzogqxiwOntybzcn99/20/2025 8:37 AM EDTPPROMEDICA B[facility] PARK HOSPITALFLU B CSXMceljhzoLyrhjhtg73/20/2025 8:37 AM EDHOL[facility] – JACKSONRSV BY UFIIhcyvyiqHmtiryiu49/20/2025 8:37 AM EDT [facility] COV 2 BY PCRNot DetectedNot Detected 07/04/2025 8:37 AM EDUNIVERSITY HOSPITALS CONNEAUT MEDICAL CENTERpecimen (Source) Anatomical Location / LateralityCollection Method / VolumeCollection Time Received TimeSwabNasopharyngeal structure / Isbqjph1107/04/2025 7:42 AM EDT 07/04/2025 7:59 AM EDT Narrative [facility] - 07/04/2025 8:37 AM EDT The Xpert Xpress SARS-CoV-2/Flu/RSV Plus [...] operators who are performing tests using either [employer] or [employer] systems and is limited to laboratories that [...] specimen repeat. Fact Sheet for Healthcare Providers: ?? https://www.fda.gov/media/680060/download ? Fact Sheet for Patients: ?? https://www.fda.gov/media/365490/download ?? Authorizing ProviderResult TypeResult StatusMaryam Han DOMICROBIOLOGY - GENERAL ORDERABLESFinal ResultPerforming OrganizationAddressCity/State/ZIP Code Phone Number [facility] [address] [place] [address], * Hepatitis C Virus Quantitative by NAAT (06/24/2025 6:50 AM EDT)Specimen (Source)Anatomical Location / LateralityCollection Method / VolumeCollection TimeReceived TimeBloodVenous blood / Unknown Narrative Authorizing ProviderResult TypeResult StatusNot In System Ref ProvLAB BLOOD ORDERABLESFinal ResultPerforming OrganizationAddressCity/State/ZIP CodePhone Number MANUALLY TRANSCRIBED RESULTS * , [facility] (06/16/2025 10:08 AM EDT) Narrative Authorizing ProviderResult TypeResult StatusNot In System Ref Prov PROCEDURE/MINOR SURGICAL ORDERABLESFinal ResultPerforming OrganizationAddress City/State/ZIP CodePhone Number MANUALLY TRANSCRIBED RESULTS * X-ray abdomen ap 1 view (06/14/2025 1:23 PM EDT)Anatomical RegionLaterality ModalityBody, AbdomenN/AComputed Radiography Narrative Authorizing ProviderResult TypeResult StatusNot In System Ref ProvIMG DIAGNOSTIC IMAGING ORDERABLESFinal Result * (ABNORMAL) Lipid profile (06/03/2025 12:01 PM EDT)ComponentValueRef RangeTest MethodAnalysis TimePerformed AtPathologist QryofckufERMJLQBJUGJ923(H)150 - 200 mg/dL06/03/2025 5:55 PM [facility] CVQRBCUSOCDIKZTXVDBDYQ7872 - 150 mg/dL06/03/2025 5:55 PM [facility] LABORATORYHDL WLEPWUWEKPQ70>39 mg/dL06/03/2025 5:55 PM [facility] LABORATORYComment: HDL <40 mg/dL - High Risk HDL > or = 40mg/dL- Desirable HDL >60 mg/dL - Negative Risk LDL (CALC)135(H)<130 mg/dL06/03/2025 5:55 PM [facility] LABORATORYComment: LDL <100 mg/dL - Desirable LDL >160 mg/dL - High Risk CHOLESTEROL:HDL2.91.0 - 5. 5:55 PM [facility] LABORATORYVERY LOW KTDLBEOWRMP373 - 30 mg/dL06/03/2025 5:55 PM [facility] LABORATORYSpecimen (Source)Anatomical Location / Laterality Collection Method / VolumeCollection TimeReceived TimeBloodVenous blood / Wikaezn6306/03/2025 12:01 PM EDT06/03/2025 12:01 PM EDT Narrative Authorizing ProviderResult TypeResult StatusDennis G Furlong DOLAB BLOOD ORDERABLESFinal ResultPerforming OrganizationAddressCity/State/ZIP CodePhone Number [facility] [address] [place] [address], * (ABNORMAL) Comprehensive metabolic panel (06/03/2025 12:01 PM EDT)Component ValueRef RangeTest MethodAnalysis TimePerformed AtPathologist SignatureSODIUM 172759 - 146 mmol/L06/03/2025 5:55 PM [facility] POTASSIUM4.53.5 - 5.0 mmol/L06/03/2025 5:55 PM [facility] RAQIXLJQPUWWGDURHG27812 - 109 mmol/L06/03/2025 5:55 PM [facility] LABORATORYCARBON XTTEJWV8380 - 32 mmol/L06/03/2025 5:55 PM [facility] LABORATORYANION GAP95 - 15 mmol/L06/03/2025 5:55 PM [facility] LABORATORYBLOOD UREA VJLHYQIM175 - 27 mg/dL06/03/2025 5:55 PM [facility] LABORATORYCREATININE0.660.40 - 1.00 mg/dL 06/03/2025 5:55 PM [facility] LABORATORYComment:METHOD TRACEABLE TO IDNE HPODXDFAORFUGFM6837 - 99 mg/dL06/03/2025 5:55 PM [facility] LABORATORYCALCIUM9.48.5 - 10.5 mg/dL06/03/2025 5:55 PM [facility] LABORATORYTOTAL PROTEIN7.46.0 - 8.0 g/dL06/03/2025 5:55 PM [facility] LABORATORYALBUMIN4.23.2 - 5.3 g/dL 06/03/2025 5:55 PM [facility] LABORATORYALKALINE PHOSPHATASE 66813 - 130 U/L06/03/2025 5:55 PM [facility] DUXLCYGTYIVVM55 <=41 U/L06/03/2025 5:55 PM [facility] BCOCBWYFRHTZM62(H)<=31 U/L06/03/2025 5:55 PM [facility] LABORATORYBILIRUBIN,TOTAL0.4 0.3 - 1.2 mg/dL06/03/2025 5:55 PM [facility] LABORATORYEGFR Non-Race Dependent>90>=60 ml/min/1.73sq.m006/03/2025 5:55 PM [facility] LABORATORYComment: Reported eGFR is based on the CKD-EPI 2021 equation that does not use a race coefficient. Specimen (Source)Anatomical Location / LateralityCollection Method / Volume Collection TimeReceived TimeBloodVenous blood / Cpmypsk1106/03/2025 12:01 PM EDT 06/03/2025 12:01 PM EDT Narrative Authorizing ProviderResult TypeResult StatusDennis Bijan Kimlomanuel DOLAB BLOOD ORDERABLESFinal ResultPerforming OrganizationAddressCity/State/ZIP CodePhone Number [facility] [address] [place] [address], * (ABNORMAL) Iron and TIBC (05/14/2025 8:51 AM EDT)ComponentValueRef RangeTest MethodAnalysis TimePerformed AtPathologist GuihzmzrkALPM2903 - 170 ug/dL 05/14/2025 4:05 PM [facility] MTHRCTZFGUQNOMWTGUREY265180 - 336 mg/dL05/14/2025 4:05 PM [facility] LABORATORYIRON BINDING 727723 - 425 ug/dL05/14/2025 4:05 PM [facility] IRON BZIUZSYLOA36(L)15 - 50 % SUZITNZTXY03/30/2025 4:05 PM [facility] LABORATORYSpecimen (Source)Anatomical Location / LateralityCollection Method / VolumeCollection TimeReceived TimeBloodVenous blood / Unknown Venipuncture / Lnfvmrd9705/14/2025 8:51 AM EDT05/14/2025 8:51 AM EDT Narrative Authorizing ProviderResult TypeResult StatusAnnetta Trujillo MDLAB BLOOD ORDERABLES Final ResultPerforming OrganizationAddressCity/State/ZIP CodePhone Number [facility] [address] [place] [address], [place] [phone] * Ferritin (05/14/2025 8:51 AM EDT)ComponentValueRef RangeTest MethodAnalysis TimePerformed AtPathologist EwmbdctrlWEBNBXCG3302 - 307 ng/mL05/14/2025 4:17 PM [facility] LABORATORYSpecimen (Source)Anatomical Location / LateralityCollection Method / VolumeCollection TimeReceived TimeBloodVenous blood / UnknownVenipuncture / Yjrtzze5005/14/2025 8:51 AM EDT05/14/2025 8:51 AM EDT Narrative Authorizing ProviderResult TypeResult StatusAnnetta Trujillo MDLAB BLOOD ORDERABLES Final ResultPerforming OrganizationAddressCity/State/ZIP CodePhone Number [facility] [address] [place] [address], [place] [phone] * Mammography screening bilateral with CAD (12/02/2024 8:54 AM EDT)Anatomical RegionLateralityModalityBreastBilateralMammographySpecimen (Source)Anatomical Location / LateralityCollection Method / VolumeCollection TimeReceived Time 12/03/2024 9:30 AM EDT Narrative 12/03/2024 9:32 AM EDT YANI CONNELL OPAL 1960 [id number] EXAM: MAMM SCREENING BILATERAL W CAD, 12/02/2024 [...] malignancy. BI-RADS: BI-RADS 1 - Negative RECOMMENDATION: ??Routine screening mammogram in 1 year. RISK ASSESSMENT: [...] MAMM 1 YR FDA Accredited Performing Facility: [facility] - Mammography/DEXA Imaging [address] [facility] [address] Procedure Note Niru [place] MD - 12/03/2024 YANI JOSEPH 1960 [id number] EXAM: MAMM SCREENING BILATERAL W CAD, 12/02/2024 [...] and family medical history was usedcalculate their [facility]. Scores less than20% are not considered high risk per ACR guidelines and patient shouldcontinue with the above recommendation. Finalized by Niru [place] MD on 12/03/2024 9:32 AM 1 b MAMM 1 YR FDA Accredited Performing Facility: [facility] - Mammography/DEXA Imaging [address] [facility] [id number] Authorizing ProviderResult TypeResult StatusBrliz Valles WEB ARCHITECT-CNPIMG MAMMOGRAPHY ORDERABLESFinal Result from Last 3 Months or Most Recently Relevant to Health Maintenance Insurance Advance Directives * Full Code (Latest Code Status on File) Date ActivatedDate [facility]01/17/2025 1:25 PM01/18/2025 4:16 PM Care Teams Team MemberRelationshipSpecialtyStart DateEnd Date Liliana Valles, WEB ARCHITECT-TANK CALIBRATOR [address] [place] [address] PCP - GeneralFamily Medicine03/31/25
--- OUTSIDE RECORDS SUMMARY | 2025-08-08 08:16 | XMS_ITS | Encounter Summary ---
Author Organization [employer] s tem Address [id number] 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 Name Role Phone Liliana Valles Primary Care Provider + Encounter Details DateTypeDepartmentCare Team (Latest Contact Info)Gjffsoymphb74/17/2025Travel Social History Tobacco UseTypesPacks/DayYears UsedDateSmoking Tobacco: FormerCigarettes0.218 1986 - 2004Smokeless Tobacco: NeverAlcohol UseStandard Drinks/WeekCommentsNot Currently0 (1 standard drink = 0.6 oz pure alcohol)[facility] UtilitiesAnswerDate RecordedIn the past 12 months has the electric, gas, oil, or water [employer] threatened to shut off services in your home?No01/17/2025Social Connection and Isolation PanelAnswerDate RecordedIn a typical week, how many times do you talk on the phone with family, friends, or neighbors?More than three times a week 10/23/2022How often do you get together with friends or relatives?Twice a week 10/23/2022How often do you attend temple or orthodox services?More than 4 times per year10/23/2022o you belong to any clubs or organizations such as temple groups, unions, fraternal or athletic groups, or school groups?No10/23/2022How often do you attend meetings of the clubs or organizations you belong to?Never 10/23/2022re you , , , , never , or living with a partner?Utjwivf9410/23/2022Overall Financial Resource Strain (CARDIA)AnswerDate RecordedHow hard is it for you to pay for the very basics like food, housing, medical care, and heating?Not very hard12/29/2024PHQ-2Answer Date RecordedTotal Cfaod61210/02/2024[facility] [place] [facility] - Occupational Stress QuestionnaireAnswerDate RecordedDo you feel stress - tense, restless, nervous, or anxious, or unable to sleep at night because yourmind is troubled all the time - these days?To some gerkvk5510/23/2022RAPARE - TransportationAnswerDate RecordedIn the past 12 months, [...] of a household?No01/17/2025hildcareAnswerDate 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 [...] InformationValueDate RecordedSex Assigned at BirthNot on fileLegal YmrCcmhsu43/06/2015 11:36 AM EDTGender IdentityNot on fileSexual OrientationNot on filedocumented as of this encounter Plan of Treatment DateTypeDepartmentCare Team (Latest Contact Info)Tmpvlwgdziv97/22/2025 11:30 AM ESTOffice Visit [facility] [address] [place] [phone] Gera Teresa DO [address], [facility] [place] [address] 11/08/2025 11:45 AM ESTOffice Visit [facility] [address] [place] [id number] Annetta Trujillo MD [address] [facility] [address] [place], [place] [id number] documented as of this encounter Goals GoalPatient Goal TypeAssociated ProblemsRecent ProgressPatient-Stated?Author Home with self care Lizbeth Wagner, CECE Note: Evaluation of progress towards goal: Plans to return home with self care. documented as of this encounter Visit Diagnoses Not on filedocumented in this encounter Additional Health Concerns AssessmentNoted TimePHQ-9 Depression Total Score: 11:00 AM EDTA Body Mass Index follow-up plan has been documented for the wifvmfk5706/07/2025 1:42 PM EDTdocumented as of this encounter Care Teams Team MemberRelationshipSpecialtyStart DateEnd Date Liliana Valles, STRESS TEST TECHNICIAN-DIETITIAN RESEARCH [facility] [place] [address] PCP - GeneralFamily Medicine03/31/25documented as of this encounter
--- OUTSIDE RECORDS SUMMARY | 2025-08-08 08:17 | XMS_ITS | CCD ---
Author Organization [facility] Care Team Providers Care Commercial Loan Reviewer Name Role Phone GERA BURCIAGA Primary Care Physician Kristina Donald Unavailable Maria Isabel Hadley Unavailable Caitlyn Long Unavailable DO Gera Burciaga Primary Care Provider NABEEL Peters Attending Provider DO Gera Burciaga Primary Care Provider NABEEL Peters Attending Provider MD Caitlyn Long Attending Provider DR ARVIN MONTEIRO Consulting Unavailable DENISSE OAKLEY Admitting Unavailable DENISSE OAKLEY Attending Unavailable DENISSE OAKLEY Consulting Unavailable JESÚS ., DR BOOKER Attending Unavailable HAY ., DR BOOKER Admitting Unavailable DR ARVIN MONTEIRO Consulting Unavailable JESÚS ., DR BOOKER Consulting Unavailable PATRICA, DR GERA Thakkar Primary Care Unavailable FRAN, BARBARA Consulting Unavailable FRAN, BARBARA Admitting Unavailable FRAN, BARBARA Attending Unavailable YI ., DR ANDERSON Admitting Unavailable YI ., DR ANDERSON Attending Unavailable YI ., DR ANDERSON Consulting Unavailable PATRICA, DR GERA Thakkar Primary Care Unavailable PATRICA, DR GERA Thakkar Primary Care Unavailable YI ., DR ANDERSON Attending Unavailable YI ., DR ANDERSON Consulting Unavailable YI ., DR ANDERSON Admitting Unavailable FRAZEE, DR ADRY Norman Consulting Unavailable GERMANIA, MANJU F Attending Unavailable GERMANIAMANJU PATEL F Admitting Unavailable FRAN, BARBARA L Referring Unavailable FRAN, BARBARA L Primary Care Unavailable Unavailable Primary Care Provider Niki BANSAL, TONI D Admitting Unavailable TONI BANSAL Attending Unavailable Fran INSERT OPERATOR-[facility], Barbara L Primary Care Provider Thom España DO Attending Provider Unavailab le Unavailable Primary Care Provider Unavailabl e Fran [employer] O[employer]ATOR[facility], Barbara L Primary Care Provider Fran INSERT OPERATOR[facility], Barbara L Primary Care Provider Gera Burciaga MD Primary Care Provider MANJU OSLO Attending Unavailable Fran INSERT OPERATOR[facility], Barbara L Primary Care Provider LORA BRAUN Attending Unavailable LORA BRAUN Attending Unavailable Radha Farrell Attending Unavailable Radha Farrell Attending Unavailable Nohemi Garcia MD Attending Provider Gera Burciaga DO Primary Care Provider Nohemi Garcia Referring Unavailable Nohemi Garcia Attending Unavailable Nohemi Garcia Admitting Unavailable TONI BANSAL Attending Unavailable TONI BANSAL Attending Unavailable TONI BANSAL Attending Unavailable TONI BANSAL Attending Unavailable TONI BANSAL Attending Unavailable Gera Burciaga Primary Care Unavailable Nohemi Garcia Attending Unavailable Nohemi Garcia Admitting Unavailable Thom España Attending Unavailable Thom España Admitting Unavailable FRAN, BARBARA L Referring Unavailable FRAN, BARBARA L Primary Care Unavailable FRAN, BARBARA L Referring Unavailable FRAN, BARBARA L Primary Care Unavailable YUHAS, MARIUSZ L Admitting Unavailable YUHAS, MARIUSZ L Attending Unavailable YUHAS, MARIUSZ L Referring Unavailable FRAN, BARBARA L Primary Care Unavailable FRAN, BARBARA L Referring Unavailable FRAN, BARBARA L Primary Care Unavailable FRAN, BARBARA L Referring Unavailable FRAN, BARBARA L Primary Care Unavailable FRAN, BARBARA L Referring Unavailable FRAN, BARBARA L Primary Care Unavailable RADHA KAHN Attending Unavailable FRAN, BARBARA L Referring Unavailable FRAN, BARBARA L Primary Care Unavailable FRAN, BARBARA L Primary Care Unavailable EMIL, MUHAMID M Admitting Unavailable EMIL, CADEID M Attending Unavailable FRAN, BARBARA L Primary Care Unavailable DINO KAUFMAN Attending Unavailable CLAUDIO TRUJILLO Referring Unavailable FRAN, BARBARA L Primary Care Unavailable CASSANDRA, CLAUDIO Blair Referring Unavailable FRAN, BARBARA L Primary Care Unavailable FRAN, BARBARA L Primary Care Unavailable PIERRE MARTINES Attending Unavailable Fran INSERT OPERATOR[facility], Barbara L Primary Care Provider FRAN, BARBARA L Attending Unavailable FRAN, BARBARA L Referring Unavailable FRAN, BARBARA L Primary Care Unavailable JOANNA PALACIOS Attending Unavailable FRAN, BARBARA L Referring Unavailable FRAN, BARBARA L Primary Care Unavailable FRAN, BARBARA L Attending Unavailable FRAN, BARBARA L Referring Unavailable FRAN, BARBARA L Primary Care Unavailable CASSANDRA, CLAUDIO E Attending Unavailable FRAN, BARBARA L Referring Unavailable FRAN, BARBARA L Primary Care Unavailable FRAN, BARBARA L Attending Unavailable FRAN, BARBARA L Referring Unavailable FRAN, BARBARA L Primary Care Unavailable GERA BURCIAGA Attending Unavailable FRAN, BARBARA L Referring Unavailable FRAN, BARBARA L Primary Care Unavailable ERIN TRUJILLOEY E Attending Unavailable FRAN, BARBARA L Referring Unavailable FRAN, BARBARA L Primary Care Unavailable Allergies Allergy ClassificationReported Allergen(s)Allergy TypeDate of OnsetReaction(s) Facility (3 sources)No Known Medication Allergies; Translations: [No Known Medication Allergies]Propensity to adverse reactions (disorder)[facility] Repository Medications Current Medications MedicationDrug Class(es)DatesSig (Normalized)Sig (Original)acetaminophen 325 mg oral tablet (1 source)Start: 16-09-3156plvz 1 tablet by mouth every four hours as slftco109 mg, oral, Every 4 hours PRN, pain mild (1-3), first line, Starting on [place] 06/17/24 at 1224, Recovery (only), When able to take oral medications., If ordered PRN for pain, nurse is permitted to administer this medication for higher pain scores based on patient preference? Yesacetaminophen 325 mg / butalbital 50 mg / caffeine 40 mg oral tablet (4 sources)Barbiturate, Central Nervous System Stimulant, MethylxanthineStart: 50-90-0322rbkz 1 tablet by mouth every four hours for headache APAP/butalbital/caffeine 325 mg-50 mg-40 mg Tab 1 tab(s), Oral, q4hr for headache, 60 tab(s), Refill(s) 0 Start Date: 01/24/22 Status: Ordered acetaminophen 300 mg / codeine phosphate 30 mg oral tablet (2 sources)Opioid AgonistStart: 18-73-8861lpse 1 tablet by mouth every six hours as neededacetaminophen-codeine (TYLENOL #3) 300-30 mg per tablet Take 1 tablet by mouth every 6 (six) hours as needed. 12/13/2024 Activeacetaminophen 325 mg / oxyCODONE hydrochloride 5 mg oral tablet (2 sources)Opioid AgonistStart: 61-43-6074Whnqpopj 5 mg-325 mg oral tablet 1 tab(s), Oral, q6hr as needed for pain, 10 tab(s), Refill(s) 0, [facility], 165, cm, 03/30/22 21:43:00 EDT, Height/Length Dosing, 79.5, kg, 03/30/22 21:43:00 EDT, Weight Dosing Start Date: 03/31/22 Status: Ordered albuterol 0.83 mg/ml inhalation solution (19 sources)beta2-Adrenergic AgonistStart: .5 mg, nebulization, Once as needed, wheezing, Starting on [facility] 06/17/24 at 1224, For 1 dose, Recovery (only)Start: 08-22-2023 End: 28-80-3549kjbx 1 dose by inhalation three times daily as neededalbuterol (PROVENTIL,VENTOLIN) 2.5 mg /3 mL (0.083 %) nebulizer solution Indications: Unspecified asthma, uncomplicated INHALE 1 (ONE) vial by NEBULIZER THREE TIMES DAILY NEEDED 90 mL 3 / Discontinued (Therapy completed) Start: 41-26-9860rbpw 2.5 mg by inhalation every six hoursalbuterol 0.083% Inh Linda 3 mL 2.5 mg, 3 mL, NEB, q6hr, Refill(s) 0, Shortness of breath or wheezing Start Date: 11/14/20 Status: OrderedStart: 12-05-8440mttv 2.5 mg by inhalation every six hoursalbuterol 0.083% Inh Linda 3 mL 2.5 mg, 3 mL, NEB, q6hr, Refill(s) 0, Shortness of breath or wheezingStart Date: 11/14/20 Status: OrderedAlbuterol ActiveAlbuterol (Eqv-ProAir HFA) 90 mcg/inh inhalation aerosol (7 sources)Start: 55-31-9119vtuv 2 puff(s) by inhalation every six hours as needed for wheezingAlbuterol (Eqv-ProAir HFA) 90 mcg/inh inhalation aerosol 2 puff(s), Inhalation, q6hr, Refill(s) 0, as needed, Shortness of breath or wheezing Start Date: 11/14/20 Status: Orderedalendronic acid 70 mg oral tablet (20 sources)BisphosphonateStart: 06-02-2023 End: 03-55-1400jtxh 1 tablet by mouth in the morningalendronate (FOSAMAX) 70 mg tablet Indications: Osteoporosis without current pathological fracture, unspecified osteoporosis type Take 1 tablet (70 mg total) by mouth every 7 days. In a.m. with wateron empty stomach, nothing else by mouth and remain upright for 30min 4 tablet 11 05/04/2025 ActiveStart: 64-89-5813jjmo 1 tablet by mouth every weekAlendronate 70 mg tablet Active 70 MG PO every week May 23, 2025 12:00am Complies with drug therapyAmoxicillin (1 source)Penicillin-class AntibacterialAmoxicillin Activeamoxicillin 875 mg / clavulanate 125 mg oral tablet (2 sources)Penicillin-class AntibacterialStart: 01-12-2024 End: 64-57-0538ahqx 1 tablet by mouth once in the morningamoxicillin-pot clavulanate (AUGMENTIN) 875-125 mg per tablet Take 1 tablet by mouth in the morningand 1 tablet before bedtime. 01/12/2024 02/11/2024 Activeaprepitant 40 mg oral capsule (1 source)Substance P/Neurokinin-1 Receptor AntagonistStart: 22-56-2004khkd 40 mg by mouth once daily40 mg, oral, Daily, First dose on [place] 06/17/24 at 1230, Preprocedureaspirin 81 mg oral tablet (20 sources)Platelet Aggregation Inhibitor, Nonsteroidal Anti-inflammatory Drug Start: 36-07-9763wyrb 1 capsule by mouth once dailyAspirin 81 mg capsule Active 81 MG PO Daily May 23, 2025 12:00am Complies with drug therapyStart: 40-85-1977lzfs 1 tablet by mouth once dailyaspirin 81 mg Oral EC Tab 81 mg = 1 tab(s), Oral, Daily, Refills(s) 0, Blood Thinner Start Date: 10/08/19 Status: Ordered Repeat number: 1Start: 14-58-9920eoot 1 tablet by mouth once daily aspirin 81 mg Oral EC Tab 81 mg = 1 tab(s), Oral, Daily, Refills(s) 0, Blood Thinner Start Date: 10/08/19 Status: OrderedAspirin Activeazelastine hydrochloride 0.137 mg/actuat metered dose nasal spray (9 sources)Histamine-1 Receptor AntagonistStart: 09-18-2023 End: 65-79-1388xjvn 2 spray(s) nasal route twice daily at bedtimeazelastine (ASTELIN) 137 mcg (0.1 %) nasal spray instill 2 (TWO) sprays IN EACH NOSTRIL TWICE DAILY(IN THE MORNING and BEFORE bedtime) 30 mL 1 11/10/2023 ActiveStart: 07-24-2023 End: 48-57-9813qyft 2 spray(s) nasal route in the morningazelastine (ASTELIN) 137 mcg (0.1 %) nasal spray Administer 2 sprays into each nostril in the morning and 2 sprays before bedtime. Use in each nostril as directed. 30 mL 1 07/24/2023 09/18/2023 Discontinuedazithromycin 250 mg Tab 5-day Dose Pack (Z-Jewel) (1 source)Start: 11-25-2022 End: 58-60-1012skmqfvhskndf 250 mg Tab 5-day Dose Pack (Z-Jewel) = 1 packet(s), Oral, As Directed, as directed on package labeling, X 5 day(s), # 6 tab(s), Refills(s) 0, Pharmacy: [facility], 165, cm,11/25/22 9:56:00 EDT, Height/Length Dosing, 84.2, kg, 11/25/22 9:56:00 EDT, Weight Dosing Start Date: 11/25/22 Stop Date: 11/30/22 Status: Orderedbaclofen 10 mg oral tablet (2 sources)gamma-Aminobutyric Acid-ergic AgonistStart: 16-84-8440fgbt 1 tablet by mouth once daily as needed for muscle spasmsbaclofen (LIORESAL) 10 mg tablet Take 1 tablet (10 mg total) by mouth nightly as needed for muscle spasms. 30 tablet 1 12/30/2024 Activebenzonatate 200 mg oral capsule (1 source)Non-narcotic AntitussiveStart: 11-25-2022 End: 40-71-0770qgeo 1 capsule by mouth three times dailybenzonatate 200 mg oral capsule 200 mg = 1 cap(s), Oral, TID, X 7 day(s), # 21 cap(s), Refills(s) 0, Pharmacy: [facility], 165, cm, 11/25/22 9:56:00 EDT, Height/Length Dosing, 84.2, kg, 11/25/22 9:56:00 EDT, Weight Dosing Start Date: 11/25/22 Stop Date: 12/02/22 Status: Qhqeofy385 actuat budesonide 0.08 mg/actuat / formoterol fumarate 0.0045 mg/actuat metered dose inhaler (20 sources)Corticosteroid, beta2-Adrenergic AgonistStart: 62-16-6992Jzkqlncpal- Formoterol (Symbicort) 80-4.5 mcg/actuation HFA aerosol inhaler Active 2 INH INHALATION Twice daily May 23, 2025 12:00am Complies with drug therapy Start: 66-24-3017foni 2 puff(s) by inhalation in the morningbudesonide- formoterol (Symbicort) 160-4.5 MCG/ACT inhaler Indications: Asthma, allergic, mild intermittent, uncomplicated (HCC) Inhale 2 puffs in the morning and 2 puffs before bedtime. 1 each 09/29/2023 ActiveStart: 61-73-8387pewb 2 puff(s) by mouth twice dailySYMBICORT 160-4.5 mcg/actuation inhaler Indications: Unspecified asthma, uncomplicated INHALE 2 PUFFS BY MOUTH TWICE DAILY 10.2 g 5 04/21/2023 ActiveStart: 28-71-5290losc 2 puff(s) by inhalation twice daily budesonide-formoteroL (Symbicort) 160-4.5 mcg/actuation inhaler Inhale 2 puffs twice a day. 04/21/2023 ActiveSymbicort Activecalcium chloride 0.0014 meq/ml / potassium chloride 0.004 meq/ml / sodium chloride 0.103 meq/ml / sodium lactate 0.028 meq/ml injectable solution (2 sources)Start: 54-51-8192hmbw 100 mL intravenously every ucmv369 mL/hr, intravenous, Continuous, Starting on [place] 06/17/24 at 1245, Recovery (only) cefdinir 300 mg oral capsule (1 source)Cephalosporin AntibacterialStart: 11-25-2022 End: 46-29-4767hkng 1 capsule by mouth every twelve hourscefdinir 300 mg Cap 300 mg = 1 cap(s), Oral, q12hr, X 10 day(s), # 20 cap(s), Refills(s) 0, Pharmacy: [facility], 165, cm, 11/25/22 9:56:00 EDT, Height/Length Dosing, 84.2, kg, 11/25/22 9:56:00 EDT, Weight Dosing Start Date: 11/25/22 Stop Date: 12/05/22 Status: Orderedcyproheptadine hydrochloride 4 mg oral tablet (20 sources)Start: 10-14-2019 End: 36-76-8687gnwo 1 tablet by mouth once daily at bedtimecyproheptadine (PERIACTIN) 4 mg tablet Indications: Migraine without aura, not intractable, withoutstatus migrainosus Take 1 tablet (4 mg total) by mouth once daily at bedtime. 06/09/2025 ActiveCyproheptadine HCl ActivediphenhydrAMINE (1 source)Histamine-1 Receptor AntagonistStart: 00-95-845618.5 mg, intravenous, Once as needed, itching, allergic reaction, Starting on [place] 06/17/24 at 1224, For 1 dose, Recovery (only)docusate sodium 100 mg oral capsule (20 sources)Start: 80-40-5385usin 1 capsule by mouth once dailyDulcolax Stool Softener 100 mg oral capsule 100 mg = 1 cap(s), Oral, Daily, Refills(s) 0 Start Date: 10/08/19 Status: OrderedStart: 45-87-1505ayfd 1 capsule by mouth twice daily as needed for constipationDulcolax Stool Softener 100 mg oral capsule 100 mg = 1 cap(s), Oral, BID, PRN for constipation, Refills(s) 0 Start Date: 10/08/19 Status: OrderedDocusate Sodium 100 mg prn Not-TakingDocusate Sodium 100 mg prn Activefamotidine 40 mg oral tablet (2 sources)Histamine-2 Receptor AntagonistStart: 36-54-9880ulye 1 tablet by mouth once daily at bedtimePepcid 40 mg Tab 40 mg = 1 tab(s), Oral, Once a day (at bedtime), # 90 tab(s), Refills(s) 1, Pharmacy: [facility], 165, cm, 12/06/20 10:28:00 EDT, Height/Length Dosing, 84.4, kg, 12/06/20 10:28:00 EDT, Weight Dosing Start Date: 12/06/20 Status: Ordered1 ml fentaNYL 0.05 mg/ml injection (2 sources)Opioid AgonistStart: mcg, intravenous, Every 5 min PRN, pain severe (7-10), first line, Starting on [place] 06/17/24 at 1224, Recovery (only), Max total of 200 micrograms regardless of dose., If ordered PRN for pain, nurseis permitted to administer this medication for higher pain scores based on patient preference? YesStart: 47-81-848881 mcg, intravenous, Every 5 min PRN, pain moderate (4-6), first line, Starting on [place] 06/17/24 at 1224, Recovery (only), Max total of 200 micrograms regardless of dose., If ordered PRN for pain, nurse is permitted to administer this medication for higher pain scores based on patient preference? Yesferrous sulfate 325 mg oral tablet (5 sources)Start: 58-17-4900drog 1 tablet by mouth once daily at breakfast ferrous sulfate 325 (65 FE) MG tablet Take 1 tablet (325 mg total) by mouth daily with breakfast. 90 tablet 05/17/2025 Activefluticasone propionate 0.05 mg/actuat metered dose nasal spray (20 sources)CorticosteroidStart: 80-88-3297yvlr 2 spray(s) nasal route in the morningfluticasone propionate (FLONASE) 50 mcg/actuation nasal spray Administer 2 sprays into each nostrilin the morning. 06/03/2025 ActiveStart: 54-38-7211qwgu 1 spray(s) nasal route once dailyFluticasone Propionate 50 mcg/actuation spray,suspension Active 2 SPRAY INTRANASAL Daily May 23, 2025 12:00am administer into each nostril Complies with drug therapyStart: 93-53-5708cigx 1 spray(s) nasal route in the morningFluticasone Propionate (Xhance) 93 MCG/ACT Exhaler Suspension Indications: Recurrent sinus infections Administer 1 spray into affected nostril(s) in the morning and 1 spray before bedtime. 16 mL 11 ActiveStart: 10-20-2023 End: 17-89-7821vqmd 1 spray(s) nasal route in the morningXHANCE 93 mcg/actuation aerosol breath activated Administer 1 spray into each nostril in the morning and 1 spray before bedtime. 10/20/2023 03/05/2024 Discontinued (Therapy completed) take 2 spray(s) nasal route once dailyfluticasone (Flonase Sensimist) 27.5 mcg/actuation nasal spray Administer 2 sprays into each nostril once daily. Active End: 38-36-3445bkeoxhkgmwy (FLONASE SENSIMIST) 27.5 mcg/actuation nasal spray 2 sprays in the morning. 10/19/2024 Discontinuedlosartan potassium 50 mg oral tablet (20 sources)Angiotensin 2 Receptor BlockerStart: 05-06-2024 End: 56-16-3298qdbq 1 tablet by mouth in the morninglosartan (COZAAR) 25 mg tablet Take 1 tablet (25 mg total) by mouth in the morning. 90 tablet 1 04/1606/24/2024 Discontinued (Therapy completed)Start: 11-19-2022 End: 25-04-2520otbu 1 tablet by mouth once dailylosartan (COZAAR) 50 mg tablet Indications: Essential (primary) hypertension TAKE 1 TABLET BY MOUTHDAILY 90 tablet 1 02/08/2025 ActiveStart: 06-41-1083ldnezpjc Refills(s) 0 Start Date: 11/19/22 Status: Orderedtake 1 tablet by mouth every twenty-four hoursLosartan Potassium 25 MG 1 tablet Orally Once a day ActiveLosartan Potassium Active magnesium sulfate 0.0277 meq/ml / potassium sulfate 0.0374 meq/ml / sodium sulfate 0.257 meq/ml oral solution (1 source)Start: 08-01-2024 End: 27-66-1621kfly 177 mL by mouth in the morningsodium,potassium,mag sulfates (SUPREP) 17.5-3.13-1.6 gram recon soln Indications: History of colon polyps Take 177 mL by mouth in the morning and 177 mL before bedtime. Do all this for 1 day. Take according colonoscopy instructions. 354 mL 08/01/2024 08/02/2024 Active meclizine hydrochloride 25 mg oral tablet (4 sources)AntiemeticStart: 61-88-1221oaqe 1 tablet by mouth three times daily as needed for dizzinessmeclizine 25 mg Tab 25 mg = 1 tab(s), Oral, TID, PRN for dizziness, # 30 tab(s), Refills(s) 0 StartDate: 01/24/22 Status: Ordered methIMAzole 10 mg oral tablet (20 sources)Thyroid Hormone Synthesis InhibitorStart: 05-23-2025 End: 79-20-7641ukve 1 tablet by mouth three times weeklymethIMAzole (TAPAZOLE) 10 mg tablet Take 1 tablet (10 mg total) by mouth 3 (three) times a week. ActiveStart: 10-27-1436ijeejeowrfq 10 mg Tab 10 mg = 1 tab(s), Oral, MonWedFri, Refills(s) 0, Thyroid Start Date: 10/08/19 Status: Ordered Repeat number: 1methIMAzole (Tapazole) 10 MG tablet TAKE 1 TABLET BY MOUTH 3 (THREE) days a week Activetake 1 tablet by mouth three times dailymethIMAzole (TAPAZOLE) 10 mg tablet Take 1 tablet (10 mg total) by mouth 3 (three) times a day. 0 Ac tivemethIMAzole Activemethocarbamol 500 mg oral tablet (1 source)Muscle RelaxantStart: 12-13-2024 End: 22-23-4123cskj 1 tablet by mouth every eight hours as neededmethocarbamoL (ROBAXIN) 500 mg tablet Take 1 tablet (500 mg total) by mouth every 8 (eight) hours as needed. 12/13/2024 12/30/2024 Discontinued (Therapy completed) methylPREDNISolone 4 mg oral tablet (1 source)CorticosteroidStart: 17-61-1886bdijhfBVOBRVDsucfc 4 MG as directed Orally Once a day for 6 days Jun, Knowim92 hr mirabegron 25 mg extended release oral tablet (1 source)beta3-Adrenergic AgonistStart: 09-85-1049ccjh 1 tablet by mouth once daily as needed for painmometasone furoate, bulk, 100 % powder (3 sources)Start: 76-10-0787ojqcfqvzcx furoate, bulk, 100 % powder Indications: Nasal polyp Compound 2 mg capsule to be added to sinus rinse twice daily. 90 g 3 07/06/2024 Activemontelukast 10 mg oral tablet (20 sources)Leukotriene Receptor AntagonistStart: 11-15-2020 End: 26-54-5227tbgi 1 tablet by mouth once dailymontelukast (SINGULAIR) 10 mg tablet Indications: Allergic rhinitis, unspecified Take 1 tablet (10 mg total) by mouth nightly. 90 tablet 2 06/09/2025 ActiveMontelukast Sodium ActiveMulti Vitamins oral tablet (18 sources)Start: 07-42-5552hgye 1 tablet by mouth once dailyMulti Vitamins oral tablet 1 tab(s), Oral, Daily, Refill(s) 0, Prophylaxis Start Date: 11/14/20 Status: Ordered Repeat number: 1Start: 40-09-3009uyei 1 tablet by mouth once dailyMulti Vitamins oral tablet 1 tab(s), Oral, Daily, Refill(s) 0, Prophylaxis Start Date: 11/14/20 Status: OrderedMultivitamin preparation (8 sources)Multivitamin Activemultivitamin tablet (4 sources)Start: 98-59-8652fxgc 1 tablet by mouth in the morningmultivitamin tablet Take 1 tablet by mouth in the morning. 06/03/2025 Activenaproxen 500 mg oral tablet (4 sources)Nonsteroidal Anti-inflammatory DrugStart: 14-39-5101kdqc 1 tablet by mouth twice daily as needed for painnaproxen 500 mg Tab 500 mg = 1 tab(s), Oral, BID, PRN for pain, # 20 tab(s), Refills(s) 0 Start Date: 01/24/22 Status: Ordered nitrofurantoin, macrocrystals 25 mg / nitrofurantoin, monohydrate 75 mg oral capsule (3 sources)Nitrofuran AntibacterialStart: 35-41-9575fznu 1 capsule by mouth every twelve hoursMacrobid 100 MG 1 cap(s) Orally bid for 5 day(s) January, ActiveOmega 3 (5 sources)[place] 3 ActiveOmega-3 (2 sources)Start: 96-90-0136Tpksk-3 Oral, Daily, Refill(s) 0, Prophylaxis Start Date: 10/08/19 Status: Orderedomeprazole 20 mg delayed release oral capsule (6 sources)Proton Pump InhibitorStart: 01-28-2024 End: 67-28-5875gtkw 1 capsule by mouth in the morningomeprazole (PriLOSEC) [address] capsule Take 20 mg by mouth in the morning. 01/28/2024 Activeomeprazole 40 mg Cap-DR (4 sources)Start: 84-20-8657vrqx 1 capsule by mouth twice dailyomeprazole 40 mg Cap-DR 40 mg = 1 cap(s), Oral, BID, # 60 cap(s), Refills(s) 2, Pharmacy: [facility], 165, cm, 01/08/21 7:20:00 EDT, Height/Length Dosing, 84.4, kg, 01/08/21 7:20:00 EDT, Weight Dosing Start Date: 01/08/21 Status: OrderedStart: 31-99-1941pwky 1 capsule by mouth once dailyomeprazole 40 mg Cap- DR 40 mg = 1 cap(s), Oral, Daily, # 30 cap(s), Refills(s) 2, Pharmacy: [facility], 165, cm, 12/06/20 10:28:00 EDT, Height/Length Dosing, 84.4, kg, 12/06/20 10:28:00 EDT, Weight Dosing Start Date: 12/06/20 Status: Ordered2 ml ondansetron 2 mg/ml injection (13 sources)Serotonin-3 Receptor AntagonistStart: mg, intravenous, Once as needed, nausea/vomiting, first line, Starting on [place] 06/17/24 at 1224, For 1 dose, Recovery (only), When administering via IV Push, administer over 3-5 minutes.Start: 06-13-2023 End: 91-74-8518fwvi 1 tablet by mouth every eight hours as needed for nausea and vomitingondansetron ODT (ZOFRAN ODT) 4 mg disintegrating tablet Dissolve 1 tablet (4 mg total) on tongue every 8 (eight) hours as needed for nausea or vomiting. 20 tablet 06/13/2023 01/28/2024 Discontinued (Therapy completed)Start: 89-38-8857ffkn 1 tablet by mouth three times daily as needed for nausea ondansetron 4 mg Dis Tab 4 mg = 1 tab(s), Oral, TID, PRN Nausea, Refills(s) 0 Start Date: 01/24/22 Status: OrderedStart: 97-81-2789jafi 1 tablet by mouth three times daily as needed for nauseaondansetron 4 mg Dis Tab 4 mg = 1 tab(s), Oral, TID, PRN Nausea, Refills(s) 0 Start Date: 01/24/22 Status: OrderedStart: 20-37-9060cltt 1 tablet by mouth three times daily as needed for nauseaZofran 4 MG 1 tablet Orally tid prn for 2 days 1 tab ODT 3 times daily as needed nausea May, Not-Takingoxybutynin chloride 5 mg oral tablet (3 sources)Cholinergic Muscarinic AntagonistStart: 01-24-2022 End: 30-97-4208bumb 1 tablet by mouth twice dailyoxybutynin 5 mg Tab 5 mg = 1 tab(s), Oral, BID, X 30 day(s), # 60 tab(s), Refills(s) 1, Pharmacy: [facility], 165, cm, 01/24/22 6:15:00 EDT, Height/Length Dosing, 87.5, kg, 01/24/22 6:15:00 EDT, Weight Dosing Start Date: 01/24/22 Stop Date: 03/25/22 Status: OrderedoxyCODONE hydrochloride 10 mg oral tablet (2 sources)Opioid AgonistStart: 22-07-1179trsp 1 tablet by mouth every four hours as needed5 mg, oral, Every 4 hours PRN, pain moderate (4-6), second line, Starting on [place] 06/17/24 at 1224, Recovery (only), When able to take oral medications., If ordered PRN for pain, nurse is permitted to administer this medication for higher pain scores based on patient preference? YesStart: 97-01-7357xmcy 1 tablet by mouth every four hours as mg, oral, Every 4 hours PRN, pain severe (7-10), second line, Starting on Lorraine 06/17/24 at 1224, Re covery (only), When able to take oral medications., If ordered PRN for pain, nurse is permitted to administer this medication for higher pain scores based on patient preference? Yesoxygen (O2) therapy (1 source)Start: 94-03-2932jgioxrvgli, , First dose on Lorraine 06/17/24 at 1245, Recovery (only), Device: Nasal Cannula, Rate in liters per minute: 2 LPM, Keep O2 Sat Above: 92%oxymetazoline hydrochloride 0.5 mg/ml nasal spray (14 sources)Start: 06-17-2024 End: 87-44-1800abeexqlkqjoih (Afrin, oxymetazoline,) 0.05 % nasal spray Indications: Surgery, elective , Chronic ethmoidal sinusitis Administer 2 sprays into each nostril every 6 hours if needed (bleeding). Do not use for more than 3 days. 30 mL 06/17/2024 Activephenazopyridine hydrochloride 200 mg oral tablet (3 sources)Start: 21-54-5814uler 1 tablet by mouth every eight hoursPyridium 200 MG 1 tablet after meals Orally Three times a day for 2 day(s) January, Activephentermine hydrochloride 37.5 mg oral capsule (20 sources)Sympathomimetic Amine AnorecticStart: 06-03-2025 End: 89-30-3091ugjh 1 capsule by mouth once daily before breakfastphentermine 37.5 MG capsule Indications: Obesity (BMI 30-39.9) Take 1 capsule (37.5 mg total) by mouth every morning before breakfast. 30 capsule 07/04/2025 Active Start: 03-05-2024 End: 02-70-0392bmyw 33-33.9 tablets by mouth once daily before breakfast phentermine (ADIPEX-P) 37.5 mg tablet Indications: Class 1 obesity due to excess calories with serious comorbidity and body mass index (BMI) of 33.0 to 33.9 in adult Take 1 tablet (37.5 mg total) by mouth every morning before breakfast. 30 tablet 06/24/2024 ActivePotassium (1 source)Potassium ActivePotassium Acetate (2 sources)Start: 94-08-9603wchb 1 tablet by mouth once dailypotassium acetate = 1 tab(s), Oral, Daily, Refills(s) 0, Prophylaxis Start Date: 03/06/20 Status: Ord eredpredniSONE 10 mg oral tablet (14 sources)Start: 26-03-9933ncpd 3 tablets by mouth once daily, then take 2 tablets by mouth once daily, then take 1 tablet by mouth once dailypredniSONE (Deltasone) 10 mg tablet Indications: Chronic ethmoidal sinusitis , Nasal polyp 30mg PO Qday for 3 days, 20mg PO Qday for 3 days, 10 mg PO Qday for 4 days 19 tablet 06/30/2024 ActiveStart: 06-02-2023 End: 95-08-6472bdzf 1 tablet by mouth twice dailypredniSONE (DELTASONE) 20 mg tablet TAKE 1 TABLET BY MOUTH TWICE DAILY 06/02/2023 01/28/2024 Discontinued (Therapy completed)Start: 11-25-2022 End: 55-61-9740hgjy 3 tablets by mouth once dailypredniSONE 20 mg Tab 60 mg = 3 tab(s), Oral, Daily, X 7 day(s), # 21 tab(s), Refills(s) 0, Pharmacy: [facility], 165, cm, 11/25/22 9:56:00 EDT, Height/Length Dosing, 84.2, kg, 11/25/22 9:56:00 EDT, Weight Dosing Start Date: 11/25/22 Stop Date: 12/02/22 Status: Orderedrimegepant 75 mg disintegrating oral tablet (2 sources)Start: 96-88-3599zwaqdfpdlj (NURTEC ODT) 75 mg disintegrating tablet Dissolve 1 tablet (75 mg total) on tongue once as needed for migraine for up to 1 dose. 1 tablet 07/04/2025 Activesulfamethoxazole 800 mg / trimethoprim 160 mg oral tablet (1 source)Dihydrofolate Reductase Inhibitor Antibacterial, Sulfonamide AntimicrobialStart: 84-11-6121ccat 1 tablet by mouth every twelve hoursSymbicort 160/4.5 inhalation aerosol with adapter (16 sources)Start: 61-52-6099whkz 2 puff(s) by inhalation twice dailySymbicort 160/4.5 inhalation aerosol with adapter 2 puff(s), Inhalation, BID, Refill(s) 0 Start Date: 01/24/22 Status: Ordered Repeat number: 1Start: 64-35-7659zoea 2 puff(s) by inhalation twice dailySymbicort 160/4.5 inhalation aerosol with adapter 2 puff(s), Inhalation, BID, Refill(s) 0 Start Date: 01/24/22 Status: Orderedtamsulosin hydrochloride 0.4 mg oral capsule (1 source)alpha-Adrenergic BlockerStart: 87-65-3945jtpt 1 capsule by mouth once daily as needed for paintraMADol hydrochloride 50 mg oral tablet (14 sources)Opioid AgonistStart: 06-17-2024 End: 98-24-6569njvy 1 tablet by mouth every six hours for paintraMADol (Ultram) 50 mg tablet Indications: Surgery, elective , Chronic ethmoidal sinusitis Take 1 tablet (50 mg) by mouth every 6 hours if needed for severe pain (7 - 10). 16 tablet 06/17/2024 Activeubrogepant 100 mg oral tablet (10 sources)Start: 07-24-2023 End: 90-89-2954fyeh 1 tablet by mouth every two hours as neededubrogepant (UBRELVY) 100 mg tablet TAKE 1 TABLET BY MOUTH NEEDED FOR MIGRAINE, may repeat dose in 2 (TWO) HOURS for a max OF 200 mg/ day 10 tablet 1 09/18/2023 Active Completed/Discontinued Medications MedicationDrug Class(es)DatesSig (Normalized)Sig (Original)cephalexin 500 mg oral capsule (4 sources)Cephalosporin AntibacterialStart: 06-17-2024 End: 10-49-7556zosq 1 capsule by mouth twice dailycephalexin (Keflex) 500 mg capsule Indications: Surgery, elective , Chronic ethmoidal sinusitis Take 1 capsule (500 mg) by mouth 2 times a day for 7 days. 14 capsule 06/17/2024 06/24/2024 ExpiredStart: 03-31-2022 End: 78-32-7570fqva 1 capsule by mouth four times dailyKeflex 500 mg Cap 500 mg = 1 cap(s), Oral, QID, X 7 day(s), # 28 cap(s), Refills(s) 0, Pharmacy: [facility], 165, cm, 03/30/22 21:43:00 EDT, Height/Length Dosing, 79.5, kg, 03/30/22 21:43:00 EDT, Weight Dosing Start Date: 03/31/22 Stop Date: 04/07/22 Status: Orderedciprofloxacin 500 mg oral tablet (10 sources)Quinolone AntimicrobialStart: 42-57-2134lqxm 1 tablet by mouth once dailyCipro 500 mg Tab 500 mg = 1 tab(s), Oral, Daily, Take 1 tablet the day before the procedure and 1 tablet after the procedure, # 2 tab(s), Refills(s) 0, Pharmacy: [facility], 165, cm, 11/25/23 13:47:00 EDT, Height/Length Dosing, 79.3, kg, 11/25/23 13:47:00 EDT, Weight Dosing Start Date: 02/05/24 Status: OrderedStart: 74-51-5609Zcyea 500 mg Tab See Instructions, Take 1 tab day prior to procedure and 1 tab day of procedure after the procedure., # 2 tab(s), Refills(s) 0, Pharmacy: [facility], 165, cm, 01/24/22 6:15:00 EDT, Height/Length Dosing, 87.5, kg, 01/24/22 6:15:00 EDT, W... Start Date: 01/25/22 Status:OrderedStart: 49-60-1536hviv 1 tablet by mouth twice daily Cipro 500 mg Tab 500 mg = 1 tab(s), Oral, BID, # 10 tab(s), Refills(s) 0, Pharmacy: [facility], 165, cm, 01/24/22 6:15:00 EDT, Height/Length Dosing, 87.5, kg, 01/24/22 6:15:00 EDT, Weight Dosing Start Date: 01/24/22 Status: Orderedhydrocortisone 25 mg/ml topical cream (7 sources)CorticosteroidStart: 02-20-2023 End: 70-57-2302xtrtrhwprkhcwe (HYTONE) 2.5 % cream Apply 1 Application topically in the morning and 1 Application before bedtime. 30 g 02/20/2023 01/28/2024 Discontinued (Therapy completed)ibuprofen 800 mg oral tablet (6 sources)Nonsteroidal Anti-inflammatory DrugStart: 03-31-2025 End: 60-03-7505wnmm 1 tablet by mouth every eight hours as needed for pain ibuprofen (MOTRIN) 800 mg tablet Take 1 tablet (800 mg total) by mouth every 8 (eight) hours as needed for pain. 30 tablet 03/31/2025 06/03/2025 Discontinued (Therapy completed)Ketorolac (14 sources)Nonsteroidal Anti-inflammatory Drug, Cyclooxygenase InhibitorStart: 99-73-9555Zdwkqgj per 15 mg Jun, 60 mgStart: 86-33-2385Rzmpgkd per 15 mg Jun, 60 mgPromethazine (14 sources)PhenothiazineStart: 00-12-4566WZAZNZSEZKJP (Phenergan) up to 50 mg Jun, 12.5 mgStart: 98-21-2658UEZZKJXBADFP (Phenergan) up to 50 mg Jun, 25 mgsodium chloride 0.111 meq/ml nasal spray (2 sources)Start: 06-17-2024 End: 28-61-0095rnhshq chloride ([place]) 0.65 % nasal spray Indications: Surgery, elective , Chronic ethmoidal sinusitis Administer 2 sprays into each nostril 6 times a day for 10 days. 44 mL 06/17/2024 06/27/2024 ExpiredToradol 30 mg/ml (8 sources)Start: 92-48-5054Nftxikn 30 mg/ml Jun, 30 mgStart: 06-02-2021 Toradol 30 mg/ml May, 30 mgtriamcinolone acetonide 40 mg/ml injectable suspension (1 source)CorticosteroidStart: 51-71-4793Kgnwnjz-40 Jun, 40 mgzolpidem tartrate 5 mg oral tablet (8 sources)gamma-Aminobutyric Acid-ergic AgonistStart: 03-08-2025 End: 82-32-7090drkp 1 tablet by mouth once daily as needed for sleepzolpidem (AMBIEN) 5 mg tablet Indications: LILO (obstructive sleep apnea) Take 1 tablet (5 mg total)by mouth nightly as needed for sleep (sleep study). 1 tablet 03/08/2025 06/03/2025 Discontinued (Therapy completed) Problems Active Problems Problem ClassificationProblemDateDocumented DateEpisodic/ChronicAsthma (20 sources)Asthma; Translations: [Unspecified asthma, uncomplicated]Onset: 07-12-2021 Resolved: 95-03-9036VjxamvfSitpzdlbgd and other anemia (1 source)Iron deficiency anemia; Translations: [Iron deficiency anemia, unspecified]40-89-3578LtweuazbDximgesfbo disorders (20 sources)Gastroesophageal reflux disease; Translations: [Gastro-esophageal reflux disease without esophagitis]Onset: 687881-08-0073NugzcmvXtknhrrsm hypertension (20 sources)Hypertensive disorder; Translations: [Essential hypertension]Onset: 11-26-2019 Resolved: 235458-64-3102MtuyqiaYidzz of unknown origin (1 source)FeverOnset: 92-53-8464FhvbcsufMlbymintyckvs congenital anomalies (20 sources)Medullary cystic disease of the kidney; 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]Onset: 716461-51-0304EqoastbYpsctnqmrkypk symptoms and ill- defined conditions (7 sources)Dysuria; Translations: [Hematuria, unspecified]Onset: 01-14-2022 Resolved: 35-11-0297UfnlgfpaEcyxpwck; including migraine (20 sources)Migraine; Translations: [Migraine, unspecified, not intractable, without status migrainosus]Onset: 435968-16-5690BzzqljcWrlnherd; including migraine (1 source)HeadacheOnset: 28-80-6150BksalvgwOlaryick; including migraine (2 sources)Headache; including migraine; Translations: [Headache, unspecified] Onset: 60-55-9400Qwqpnupex (1 source)InfluenzaOnset: 19-37-4828Ocwx disorders (4 sources)Depressive disorder; Translations: [Depression]00-65-3767Padpyub Nutritional deficiencies (3 sources)Iron deficiency; Translations: [Iron deficiency]Onset: 07-12-2025 86-02-4036EgaqszkqPbjzyzivsxtn (2 sources)Osteoporosis; Translations: [Age-related osteoporosis without current pathological fracture]39-85-0634IqkknjqOsthm diseases of kidney and ureters (1 source)Hydronephrosis with renal and ureteral calculous obstruction; Translations: [Hydronephrosis with renal and ureteral calculous obstruction] Onset: 82-21-6011EhraosjxZyape liver diseases (1 source)Enzyme level - finding; Translations: [Abnormal levels of other serum enzymes]Onset: 43-74-5419TqjwkmcpBmrol lower respiratory disease (1 source)Personal history of other diseases of the respiratory systemEpisodic Other lower respiratory disease (1 source)CoughOnset: 53-16-3459EhauitfmUsevz nervous system disorders (3 sources)Sense of smell impaired; Translations: [Other disturbances of smell and taste]15-97-3917VpwjxfyaMwdkh nutritional; endocrine; and metabolic disorders (1 source)Obesity; Translations: [Obesity, unspecified]Onset: 34-95-5159Wzofbfk Other nutritional; endocrine; and metabolic disorders (1 source)Body mass index (BMI) 33.0-33.9, adult; Translations: [Body Mass Index 33.0-33.9, adult]57-18-7718ShglkkcVmbgx nutritional; endocrine; and metabolic disorders (6 sources)Obesity caused by energy imbalance; Translations: [Other obesity due to excess calories]79-33-7443LbpwjqvLmruu nutritional; endocrine; and metabolic disorders (1 source)Obesity, unspecified; Translations: [Obesity, unspecified]Onset: 85-96-0906XvzlcykHhffq nutritional; endocrine; and metabolic disorders (1 source)Body mass index (BMI) 30.0-30.9, adult; Translations: [Body mass index (BMI) 30.0-30.9, adult]Onset: 86-96-7987SpxyoxtYoxaf nutritional; endocrine; and metabolic disorders (1 source)Overweight; Translations: [Overweight]63-39-7944BytqoeqeXhizr nutritional; endocrine; and metabolic disorders (1 source)Overweight in adulthood with body mass index of 25 or more but less than 30; Translations: [Body mass index (BMI) 29.0-29.9, adult]07-04-2025 EpisodicOther nutritional; endocrine; and metabolic disorders (1 source)Overweight; Translations: [Overweight]Onset: 47-39-3361PmremjhkKlbsa nutritional; endocrine; and metabolic disorders (1 source)Body mass index (BMI) 29.0-29.9, adult; Translations: [Body mass index (BMI) 29.0-29.9, adult]Onset: 51-13-4639NpwrphowOmrie screening for suspected conditions (not mental disorders or infectious disease) (4 sources)Patient encounter status; Translations: [Encounter for procedure for purposes other than remedying health state, unspecified]41-88-5099HxchotmcFcunm upper respiratory disease (1 source)Allergic rhinitis, unspecifiedChronicOther upper respiratory disease (3 sources)Allergic rhinitis; Translations: [Allergic rhinitis, unspecified] 14-04-4618WoeqowdHwmmn upper respiratory disease (1 source)Nasal congestionEpisodicOther upper respiratory disease (2 sources)Nasal congestion; Translations: [Nasal congestion]12-70-6937Hmezoxld Other upper respiratory disease (1 source)Deviated nasal septum; Translations: [Deviated nasal septum]Onset: 89-02-6174QumlvauvNzbzm upper respiratory infections (20 sources)Sinusitis; Translations: [Chronic ethmoidal sinusitis]Onset: 01-12-2024 Resolved: 120878-37-6314HfkolxeBpjyd upper respiratory infections (3 sources)Acute upper respiratory infection, unspecified; Translations: [Acute pharyngitis, unspecified]Onset: 19-57-2614XxsduwgyGduuuitd codes; unclassified (6 sources)Sleep apnea; Translations: [Sleep apnea, unspecified]Onset: 50-93-5843RsvlwamTbqgbfjp codes; unclassified (1 source)Sleep apnea, unspecifiedChronicResidual codes; unclassified (20 sources)Obstructive sleep apnea syndrome; Translations: [Obstructive sleep apnea (adult) (pediatric)]Onset: 719875-56-5515UrdachuMgpgwnex codes; unclassified (4 sources)Obstructive sleep apnea (adult) (pediatric); Translations: [Obstructive sleep apnea (adult)(pediatric)]Onset: 76-59-6646BzvznddUqcphtos codes; unclassified (1 source)Pain; Translations: [Pain, unspecified]Onset: 24-91-4420Mqzkkzip Residual codes; unclassified (1 source)Procedure carried out on subject; Translations: [Encounter for prophylactic measures, unspecified]Onset: 31-09-5761NbshkkakJszlqwmq codes; unclassified (8 sources)Restless sleep; Translations: [Sleep disorder, unspecified]12-29-2023 EpisodicResidual codes; unclassified (2 sources)Sleep disorder, unspecified; Translations: [Sleep disturbance, unspecified]EpisodicResidual codes; unclassified (2 sources)Encounter for procedure for purposes other than remedying health state, unspecified; Translations: [Encounter for procedure for purposes other than remedying health state, unspecified]Onset: 80-80-5647VxaehpccZlutltjp codes; unclassified (1 source)Finding related to ability to perform personal care activity; Translations: [Other specified healthstatus]81-03-6315YamcwyldOblzylitemi; intervertebral disc disorders; other back problems (2 sources)Thoracic spondylosis without myelopathy; Translations: [Spondylosis without myelopathy or radiculopathy, thoracic region]Onset: 702689-68-4925 ChronicThyroid disorders (20 sources)Graves' disease; Translations: [Hyperthyroidism]Onset: 01-24-2022 15-41-5671UevksppZswiyphmaicl (2 sources)Office will call to schedule cystoscopy, left stent removal in 2 weeksUnclassified (2 sources)Post-op; Translations: [Post-op]Onset: 81-18-3861Ydtgfhxjnqjo (1 source)Extremity PainOnset: 30-30-4524Dyivafuepifl (1 source)Personal history of adenomatous and serrated colon polyps; Translations: [Personal history of adenomatous and serrated colon polyps]Onset: 78-93-4729Vtvtdvmrzwiz (1 source)Personal history of adenomatous and serrated colon polyps [Z86.0101] Onset: 43-87-6052Enlouoqbwvzp (1 source)Weight CheckOnset: 36-35-0736Rnwpfaskmfjm (1 source)Annual ExamOnset: 56-01-0624Psegpaiwpuzk (1 source)New PatientOnset: 84-63-8152Jrptyschmzxw (1 source)[facility] 45-19-2191Akpjcmy tract infections (3 sources)Urinary tract infection, site not specified; Translations: [Urinary tract infectious disease]Onset: 01-14-2022 Resolved: 57-01-1793Atlthlyq Past or Other Problems Problem ClassificationProblemDateDocumented DateEpisodic/ChronicAbdominal hernia (20 sources)Hiatal hernia; Translations: [Diaphragmatic hernia without obstruction or gangrene]Onset: 691417-40-2262QxxmvmiqImfflnqbg pain (15 sources)Abdominal pain; Translations: [Unspecified abdominal pain]Onset: 406226-63-5177XunnxgqaIthl and rectal conditions (20 sources)Rectal polyp; Translations: [Rectal polyp]Onset: 10-20-2024 50-98-0780WlccrgilXqowpcfd of urinary tract (20 sources)Kidney stone; Translations: [Calculus of kidney]Onset: 01-24-2022 EpisodicFluid and electrolyte disorders (20 sources)Hypokalemia; Translations: [Hypokalemia]Onset: EpisodicImmunizations and screening for infectious disease (3 sources)Contact with and (suspected) exposure to other viral communicable diseases; Translations: [Influenza vaccination given]Onset: 07-12-2021 Resolved: 51-48-0540PxkvryiwHdoq disorders (20 sources)Mood disordersOnset: 06-24-2024 Resolved: Nausea and vomiting (1 source)Nausea with vomiting, unspecified; Translations: [Nausea with vomiting, unspecified]Onset: 71-59-2488VrcucwncOtula aftercare (1 source)correction (current) use of aspirin; Translations: [CORRECTION CURRENT USE OF ASPIRIN]Onset: 61-72-9735CkycbierLatld aftercare (1 source)Other terminal clerk (current) drug therapy; Translations: [OTH CONSUMER EDUCATOR 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 THERAPY]Onset: 86-87-9196RlwenawjJqrbd and unspecified benign neoplasm (20 sources)History of polyp of colon; Translations: [Personal history of adenomatous and serrated colon polyps]Onset: 075735-62-9303AguxcnojYrqdl connective tissue disease (4 sources)Pain in right foot; Translations: [PAIN IN RIGHT FOOT]Onset: 36-80-3123FdsrqpktAzbkx connective tissue disease (1 source)Pain in left foot; Translations: [Pain in left foot]Onset: 03-31-2025 EpisodicOther nervous system disorders (7 sources)H/O: migraine; Translations: [Personal history of other diseases of the nervous system and sense organs]Onset: 634615-96-6954ZqtfppgwLdxxh non-traumatic joint disorders (5 sources)Pain in right ankle and joints of right foot; Translations: [PAIN IN RIGHT ANKLE]Onset: 23-45-8987XsudfwneSpjux non-traumatic joint disorders (1 source)Pain in left ankle and joints of left foot; Translations: [Pain in left ankle and joints of left foot]Onset: 42-73-8754IidztnooDsdhn non-traumatic joint disorders (1 source)Ankle painOnset: 32-90-0867HmnrqgrkMknie nutritional; endocrine; and metabolic disorders (20 sources)Body mass index 30+ - obesity; Translations: [Body mass index (BMI) 33.0-33.9, adult]Onset: 10-25-2022 Resolved: 959262-92-3160TgtdeohHtniv nutritional; endocrine; and metabolic disorders (20 sources)Body mass index 25-29 - overweight; Translations: [Overweight]Onset: 079299-82-6260VyaxrqrzNuhgk screening for suspected conditions (not mental disorders or infectious disease) (2 sources)Mammography abnormal; Translations: [Other abnormal and inconclusive findings on diagnostic imagingof breast]Onset: 805279-58-9106AacrewhaWyydn upper respiratory disease (20 sources)Deviated nasal septum; Translations: [Deviated nasal septum]Onset: 800643-30-9484PkkvbxgvIzayu upper respiratory disease (20 sources)Polyp of nasal cavity and/or nasal sinus; Translations: [Nasal polyp, unspecified]Onset: 105632-44-5904UetsmkoxTwbrf upper respiratory disease (2 sources)Nasal polyp, unspecified; Translations: [Nasal polyp, unspecified] Onset: 15-45-3112BvqwelfwXjzmbowbk (except that caused by tuberculosis or sexually transmitted disease) (17 sources)Pneumonia; Translations: [Pneumonia, unspecified organism]Onset: 11-25-2022 Resolved: 44-02-1518UuzvxfxnZgdomrjzr heart disease (20 sources)Other pulmonary embolism without acute cor pulmonale; Translations: [Pulmonary embolism]Onset: 67-59-2967JpskgfboWbfgelye codes; unclassified (3 sources)Other specified health status; Translations: [Other specified conditions influencing health status]Onset: 829740-92-9314Dgbyhczm Spondylosis; intervertebral disc disorders; other back problems (8 sources)Thoracic back pain; Translations: [Dorsalgia, unspecified]Onset: 708036-09-2995HlbwebvrIojsygpkzsmc (1 source)Contact with and (suspected) exposure to covid-19 Z20.822Unclassified (8 sources)Onset: 06-30-2024 Resolved: Results Test NameValueInterpretationReference RangeFacilitySARS/FLU A+B/RSV BY NAAT/MOLECULAR (M4RT COLLECTION TUBE)on 36-10-3687MBEM/FLU A+B/RSV BY NAAT/MOLECULAR (M4RT COLLECTION TUBE)FLU A PCR Negative FLU B PCR Negative RSV BY PCR Negative SARS COV 2 BY PCR Not DetectedNormalNot DetectedProBaylor Scott And White Medical Center – FriscoComment on above:Order Comment: The Xpert Xpress SARS-CoV-2/Flu/RSV Plus test is [...] operators who are performing tests using either [employer] or [employer] and is limited to laboratories that meet [...] by this test are generally detectable in upperrespiratory samples during the acute phase of infection. [...] preclude SARS-CoV-2, influenza A, influenza B and RSVinfection and should not be used as the sole basis for treatment or other patient management decisions. Negative results must be combined with clinical observations, patient history and epidemiological information. An Invalid result may occur with specimen-associated inhibition unable to be resolved with specimen repeat.Fact Sheet for Healthcare Providers:https://www.fda.gov/media/886976/downloadFact Sheet for Patients:https://www.fda.gov/media/938697/downloadPerformed By: #### COVFLR ####[facility] ([facility])[address] [place] [address] VIRCOMPREHENSIVE METABOLIC PANELon 08-72-2255Ozysfxk [Mass/Vol]4.2 g/dL Normal3.2-5.3PUniversity [facility]als [facility] Ambulatory PPGComment on above:Performed By: #### CMP #### [facility] ([facility]) [address] [place] [address] VIRALP [Catalytic activity/Vol]108 U/OQsgpmq85-888MifClmboa Hospital Ambulatory PPGComment on above:Performed By: #### CMP #### [facility] ([facility]) [address] [place] [address] VIRALT [Catalytic activity/Vol]34 U/LHigh<=31PUniversity [facility]als [facility] System Ambulatory PPGComment on above:Performed By: #### CMP #### [facility] ([facility]) [address] [place] [address] VIRAnion gap [Moles/Vol]9 mmol/LNormal5-15[facility] Ambulatory PPGComment on above:Performed By: #### CMP #### [facility] ([facility]) [address] [place] [address] VIRAST [Catalytic activity/Vol]22 U/LNormal<=41[facility] Ambulatory PPGComment on above:Performed By: #### CMP #### [facility] ([facility]) [address] [place] [address] VIRBilirubin [Mass/Vol]0.4 mg/dLNormal0.3-1.2PUniversity [facility]als [facility] System Ambulatory PPGComment on above:Performed By: #### CMP #### [facility] ([facility]) [address] [place] [address] VIRCalcium [Mass/Vol]9.4 mg/dLNormal8.5-10.5PUniversity Hospitals Health System Ambulatory PPGComment on above:Performed By: #### CMP #### [facility] ([facility]) [address] [place] [address] VIRChloride [Moles/Vol]101 mmol/LHbywdx80-979[facility] Ambulatory PPGComment on above:Performed By: #### CMP #### [facility] ([facility]) [address] [place] [address] VIRCO2 [Moles/Vol]30 mmol/NUgcnlf67-69HylXtumzb Hospital Ambulatory PPGComment on above:Performed By: #### CMP #### [facility] ([facility]) [address] [place] [address] VIRCreatinine [Mass/Vol]0.66 mg/dLNormal0.40-1.00[facility] Ambulatory PPGComment on above:Result Comment: METHOD TRACEABLE TO IDMS STANDARDPerformed By: #### CMP #### [facility] ([facility]) [address] [address] [place] [address] VIREGFR (CKD-EPI) NON-RACE DEPENDENT>^90Normal>=60ProMary Rutan Hospital Ambulatory PPGComment on above:Result Comment: Reported eGFR is based on the CKD-EPI 2020 equation that does not use a race coefficient.Performed By: #### CMP #### [facility] ([facility]) [address] [place] [address] VIRGlucose [Mass/Vol]99 mg/lCVewqxb48-70OqbUxdvhr Hospital Ambulatory PPGComment on above:Performed By: #### CMP #### [facility] ([facility]) [address] [place] [address] VIRPotassium [Moles/Vol]4.5 mmol/LNormal3.5-5.0[facility] Ambulatory PPGComment on above:Performed By: #### CMP #### [facility] ([facility]) [address] [place] [address] VIRProtein [Mass/Vol]7.4 g/dLNormal6.0-8.0[facility] Ambulatory PPGComment on above:Performed By: #### CMP #### [facility] ([facility]) [address] [place] [address] VIRSodium [Moles/Vol]140 mmol/WTcqxhd252-433VniXgsviw Hospital Ambulatory PPGComment on above:Performed By: #### CMP #### [facility] ([facility]) [address] [place] [address] VIRUrea nitrogen [Mass/Vol]13 mg/dLNormal5-27ProMary [facility] Ambulatory PPGComment on above:Performed By: #### CMP #### [facility] ([facility]) [address] [place] [address] VIRComprehensive metabolic panelon 15-78-5791Yzycanc [Mass/Vol] 4.2 g/dL3.2 - 5.3 g/dLProMercy Health Lorain Hospital SystemALP [Catalytic activity/Vol]108 U/L 39 - 130 U/LProMedica Health SystemALT No additional P-5'-P [Catalytic activity/Vol]34 U/LHighNINF - 31 U/LProMedica Health SystemAnion gap [Moles/Vol] 9 mmol/L5 - 15 mmol/LProMedica Health SystemAST [Catalytic activity/Vol]22 U/L NINF - 41 U/[facility] SystemBilirubin [Mass/Vol]0.4 mg/dL0.3 - 1.2 mg/dL ProMMille Lacs Health System [facility] SystemCalcium [Mass/Vol]9.4 mg/dL8.5 - 10.5 mg/dLProMercy Health Lorain Hospital SystemChloride [Moles/Vol]101 mmol/L98 - 109 mmol/LPrCox Monettica Health SystemCO2 [Moles/Vol]30 mmol/L22 - 32 mmol/[facility] Health SystemCreatinine [Mass/Vol]0.66 mg/dL0.40 - 1.00 mg/dLKettering Health Springfield SystemComment on above: METHOD TRACEABLE TO IDMS STANDARDEGFR Non-Race Dependent- [facility] SystemComment on above:Reported eGFR is based on the CKD-EPI 2020 equation that does not use a race coefficient. Glucose [Mass/Vol]99 mg/dL65 - 99 mg/dLProMercy Health Lorain Hospital SystemPotassium [Moles/Vol]4.5 mmol/L3.5 - 5.0 mmol/LPrCox Monettica Health SystemProtein [Mass/Vol] 7.4 g/dL6.0 - 8.0 g/dLProAndalusia Health Health SystemSodium [Moles/Vol]140 mmol/L134 - 146 mmol/[facility] Health SystemUrea nitrogen [Mass/Vol]13 mg/dL5 - 27 mg/dL [facility] SystemLIPID PROFILEon 09-46-2571Vztdgnooaug [Mass/Vol]231 mg/dL Zbna473-694GzxHkrzyc Hospital Ambulatory PPGComment on above:Performed By: #### LIPR #### [facility] ([facility]) [address] [place] [address] VIRCholesterol in HDL [Mass/Vol]80 mg/dLNormal>39[facility] Ambulatory PPGComment on above:Result Comment: HDL <40 mg/dL - High Risk HDL > or = 40mg/dL- Desirable HDL >60 mg/dL - Negative RiskPerformed By: #### LIPR #### [facility] ([facility]) [address] [place] [address] VIRCholesterol in LDL [Mass/Vol]135 mg/dLHigh<130[facility] Ambulatory PPGComment on above:Result Comment: LDL <100 mg/dL - Desirable LDL >160 mg/dL - High RiskPerformed By: #### LIPR #### [facility] ([facility]) [address] [place] [address] VIRCHOLESTEROL:HDL2.6Sljrzr7.0-5.0[facility] Ambulatory PPGComment on above:Performed By: #### LIPR #### [facility] ([facility]) [address] [place] [address] VIRTriglyceride [Mass/Vol]79 mg/oGJysutz65-398NmaPteytv Hospital Ambulatory PPGComment on above:Performed By: #### LIPR #### [facility] ([facility]) [address] [place] [address] VIRVERY LOW HDGNZVMFHPK58 mg/dLNormal0-30[facility] Ambulatory PPGComment on above:Performed By: #### LIPR #### [facility] ([facility]) [address] [place] [address] VIRLipid profileon 63-90-0904Kcuyqtyqfic [Mass/Vol]231 mg/dL Nseb696 - 200 mg/dLKettering Health Springfield SystemCholesterol in HDL [Mass/Vol]80 mg/dL 39 - PINF mg/dLProMedica Health SystemComment on above:HDL <40 mg/dL - High Risk HDL > or = 40mg/dL- Desirable HDL >60 mg/dL - Negative Risk Cholesterol in HDL [Mass/Vol]2.9 mg/dL1.0 - 5.0ProMedinh Health System Cholesterol in LDL [Mass/Vol]135 mg/dLHighNINF - 130 mg/dLProMercy Health Lorain Hospital SystemComment on above:LDL <100 mg/dL - Desirable LDL >160 mg/dL - High Risk Cholesterol in VLDL [Mass/Vol]16 mg/dL0 - 30 mg/dLProMercy Health [facility] Hospital System Triglyceride [Mass/Vol]79 mg/dL27 - 150 mg/dLProMercy Health Lorain Hospital SystemNo Panel Informationon 85-64-3280Uqystyfgixdeya and review of laboratory resultsAbnormal ProMedicRiverView [facility] Clinic SystemProMercy Health Lor[facility] Hospital SystemInpatient Patient Summaryon 68-58-1621Tcgbkwlul Patient SummaryInpatient Patient Summary [place] [address] Clinical Summary Person Information Name: YANI JOSEPH Age: 65 Years : 1960 Sex: Female PCP: GERA BURCIAGA DO Marital Status: Race: White Ethnicity: Non- or Language: Citizen Of [place] Visit Id: Visit Reason: LEFT KIDNEY STONES Speciality: Acuity: Enc Type: Outpatient Med Service: Surgery Arrival: 05/30/2025 10:22:49 Discharge: Dispo Type: Address: [address] [place] [id number] Provider Notes: Diagnosis: Encounter for removal of ureteral stent Problems Active Asymptomatic bacteriuria Sinusitis Kidney stone Pulmonary embolus Graves disease Hypertension BMI 27.0-27.9,adult Hyperthyroidism Smoking Status: Functional Status: Sensory Deficits: History of Falls: Mobility Assistance Prior to Admission: ADLs: Current Level of Assistance for Self-Care/Mobility: Cognitive Status: Allergies No Known Medication Allergies No Known Allergies Laboratory or Other Results This Visit (last charted value for your 05/30/2025 visit) No Laboratory or Other Results This Visit Measurements: Height: Weight: Blood Pressure: Not Valued / Not Valued BMI: Procedures No Procedures Performed or Documented Immunizations No Immunizations Documented This Visit Final Med List: alendronate (alendronate 70 mg Tab) aspirin (aspirin 81 mg Oral EC Tab) 1 Tablets By Mouth every day. budesonide-formoterol (Symbicort 160/4.5 inhalation aerosol with adapter) 2 Puffs Inhalation 2 times a day. cyproheptadine (cyproheptadine 4 mg Tab) 1 Tablets By Mouth at bedtime. losartan 50 Milligram By Mouth every day. methimazole (methimazole 10 mg Tab) 1 Tablets By Mouth Friday. montelukast (montelukast 10 mg Tab) 1 Tablets By Mouth at bedtime. Refills: 2. multivitamin (Multi Vitamins oral tablet) 1 Tablets By Mouth every day. naproxen (Naprosyn 500 mg Tab) 1 Tablets By Mouth 2 times a day as needed for pain. Refills: 0. ondansetron (Zofran ODT 4 mg Tab-Dis) 1 Tablets By Mouth 3 times a day. Refills: 0. Care Team Members: Attending Physician: Nohemi Garcia MD Consulting Physician: Referring Physician: Nohemi Garcia MD Follow up: With: Address: When: [place] [address] [facility] (1) Comments: Keep scheduled appointment Call for any problems. Obtain renal US in 6-8 weeks, will call with results Type Location Start Finish State URO Office [place] [facility] EU Lisa 03/07/2026 8:20 AM 03/07/2026 8:40 AM Confirmed Patient Education Information: Dietary Guidelines to Help Prevent Kidney Stones; EU - Cystoscopy with Stent Removal [facility]USTOM)[facility] Recordon 02-14-4065Ilkx OR Intraoperative RecordMain OR Intraoperative Record IntraOp Document Type FTURO Summary Primary Physician: Nohemi Garcia MD Finalized Date/Time: 05/30/25 10:49:57 Pt. Name: OPALYANI D.O.B./Sex: 1960 Female Med Rec #: [id number] Physician: Nohemi Garcia MD Financial #: [id number] Pt. Type: O Room/Bed: / Admit/Disch: 05/30/25 10:22:49 - Institution: Case Times FTURO Entry 1 Patient Times In Room 05/30/25 10:37:00 Out Room 05/30/25 10:49:00 Procedure Times Start 05/30/25 10:45:00 Stop 05/30/25 10:47:00 Anesthesia Times Last Modified By: Tati Corbin 05/30/25 10:49:51 Case Attendance FTURO Entry 1 Entry 2 Entry 3 Case Attendee Jose THORNE, Tati Rodriguez Kendall R Role Performed Surgeon - Primary Steel Layer - Primary Scrub - Primary Time In 05/30/25 10:44:00 05/30/25 10:37:00 05/30/25 10:37:00 Time Out 05/30/25 10:49:00 05/30/25 10:49:00 05/30/25 10:49:00 Procedure CYSTOSCOPY LOCAL WITH CYSTOSCOPY LOCAL WITH CYSTOSCOPY LOCAL WITH STENT REMOVAL(Left) STENT REMOVAL(Left) STENT REMOVAL(Left) Comments Last Modified By: Tati Corbin Kelsie E Burgderfer, Kelsie E 05/30/25 10:49:53 05/30/25 10:49:53 05/30/25 10:49:53 Surgical Procedures FTURO Entry 1 Procedure Description Procedure CYSTOSCOPY LOCAL WITH Modifiers Left STENT REMOVAL Surgeon Description CYSTO WITH LEFT STENT REMOVAL Primary Procedure Yes Primary Surgeon Jose THORNE, Nohemi Boothe Start 05/30/25 10:45:00 Stop 05/30/25 10:47:00 Anesthesia Type Local Surgical Service Urology Wound Class 2 - Clean-Contaminated Last Modified By: Tati Corbin 05/30/25 10:48:09 General Case Data FTURO Pre-Care Text: Classifies surgical wound, implements aseptic technique, initiates traffic control Entry 1 Case Information OR URO 1 FT Case Level None Wound Class 2 - Clean-Contaminated Specialty Urology Preop Diagnosis LEFT KIDNEY STONES Postop Same As Preop Yes Postop Diagnosis LEFT KIDNEY STONES Outcomes Met? Yes Last Modified By: Tati Corbin 05/30/25 10:37:08 Post-Care Text: The patient is free from signs and symptoms of infection EU IntraOp - FTURO Pre-Care Text: Implements protective measures prior to operative or invasive procedure, confirms identity before the operative or invasive procedure, verifies operative procedure, surgical site, and laterality Entry 1 EU Perioperative Protocols Procedure(s) CYSTOSCOPY LOCAL WITH Patient Identity Birthday, ID Band STENT REMOVAL(Left) Verified (select at Check, Patient least 2): Participation Consents / H and P H&P, Surgery/Procedure Operative Site N/A Verified Consent Marking Verified Surgical Site Yes Laterality Verified Yes Verified Procedure Verified Yes Correct Patient Yes Position Verified Availability Equipment, Medication Time Out Nohemi Garcia MD, Verified (If Participants Tati Corbin, Applicable) Jorge Abreu Time Out Complete 05/30/25 10:44:00 Allergies Reviewed? Yes Allergies Reviewed Self/Patient With Body Position Frog Legged Prep Area DEANNA AREA Prep Agents Betasept Skin. Condition Unable to Visualize Description N/A Additional None Specimens Comment N/A Specimens Collected Vitals - EU Blood Pressure Pulse Respirations SPO2 EBL 0 I&O - EU Total Intake 0 mL Total Output 0 mL Outcomes Met? Yes Last Modified By: Tati Corbin 05/30/25 10:45:02 Post-Care Text: The patient is free from signs and symptoms of injury caused by extraneous objects Sign Out FTURO Entry 1 Before Patient Leaves OR Nurse verbally Yes Nurse verbally n/a confirms with the confirms with the team the name of team that the procedure(s) instrument, sponge, recorded and needle counts are correct (or N/A) Nurse verbally n/a Nurse verbally Yes confirms with the confirms with the team how the team whether there specimen is labeled are any equipment (including patient problems to be name), if applicable addressed Sign Out Complete 05/30/25 10:48:00 Last Modified By: Tati Corbin 05/30/25 10:48:06 Case Comments Finalized By: Tati Corbin Document Signatures Signed By: Tati Corbin 05/30/25 10:49[facility] Reporton [id number] ReportOperative Report Patient: YANI JOSEPH Age: 65 years Sex: Female : 1960 Associated Diagnoses: None Author: Nohemi Garcia MD Procedure Operative Information Details: Date/ Time: 05/30/2025 10:52:00. Pre-Op Dx: Encounter for removal of ureteral stent (EQW41-DD Z46.6, Discharge, Medical). Post-Op Dx: Same. Anesthesia Type: Local. Procedure: Local Cystoscopy with Stent Removal. Complications: None. Risks/Benefits/Informed Consent: Surgical risks, benefits, details of the procedure have been explained to the patient, Full informed consent has been obtained. Intraoperative Information Prepped: The patient was placed in supine position, The patient was prepped with the Betadine solution (Hibiclens). Anesthesia: 2% Xylocaine Jelly per urethra. Procedure: Cystoscopy and Left Stent Removal, The flexible Cystoscope was passed in retrograde fashion into the bladder without difficulty, The bladder was viewed in entirety and found to be without tumors or stones, Mild inflammation was seen surrounding the orifice with the stent seen protruding from it, The stent was then grasped and removed in its entirety, Mild hematuria. Specimens Removed: None. Devices Implanted: None. 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 Yi, her established urologist per pt.[facility] HospitalComment on above:Result Comment: Electronically Signed By: Nohemi Garcia MD\.br\Date and Time Signed: 05/30/25 10:53EDT Outpatient Surgery Discharge Instructionon 24-87-7920Yytpmndgpx Surgery Discharge InstructionOutpatient Surgery Discharge Instruction [address] [address] Patient Discharge Instructions PERSON INFORMATION Name: YANI JOSEPH Date of : 1960 Current Date: 05/30/2025 10:52:11 PHYSICIANS Admitting Physician: Nohemi Garcia MD Comment: Discharge Diagnosis: Encounter for removal of ureteral stent YANI JOSEPH has been given the following list of follow-up instructions, prescriptions, and patient education materials: IF UNABLE TO CONTACT YOUR PHYSICIAN AND YOU FEEL IT IS AN EMERGENCY, GO TO THE NEAREST EMERGENCY ROOM OR CALL 911 Follow up: With: Address: When: Justin YI [address] [place] [address], [facility] [place] [id number] [facility] (1) Comments: Keep scheduled appointment Call for any problems. Obtain renal US in 6-8 weeks, will call with results Type Location Start [facility] URO Office Visit [facility] JAMIE JaneLisa 03/07/2026 8:20 AM 03/07/2026 8:40 AM Confirmed Comment: PATIENT EDUCATION INFORMATION Instructions: Dietary Guidelines to Help Prevent Kidney Stones Kidney stones are deposits of minerals and salts that form inside your kidneys. Your risk of developing kidney stones may be greater depending on your diet, your lifestyle, the medicines you take, and whether you have certain medical conditions. Most people can lower their risks of developing kidney stones by following these dietary guidelines. Your dietitian may give you more specific instructions depending on your overall health and the type of kidney stones you tend to develop. What are tips for following this plan? Reading food labels ??? Choose foods with no salt added or low-salt labels. Limit your salt (sodium) intake to lessthan 1,500 mg a day. ??? Choose foods with calcium for each meal and snack. Try to eat about 300 mg of calcium at each meal. Foods that contain 200?500 mg of calcium a serving include: ? 8 oz (237 mL) of milk, cndyjwt-rbcwlwrwhzgk-gngzw milk, and calcium- fortifiedfruit juice. Calcium-fortified means that calcium has been added to these drinks. ? 8 oz (237 mL) of kefir, yogurt, and soy yogurt. ? 4 oz (114 g) of tofu. ? 1 oz (28 g) of cheese. ? 1 cup (150 g) of dried figs. ? 1 cup (91 g) of cooked broccoli. ? One 3 oz (85 g) can of sardines or mackerel. Most people need 1,000?1,500 mg of calcium a day. Talk to your dietitian about how much calcium is recommended for you. Shopping ??? Buy plenty of fresh fruits and vegetables. Most people do not need to avoid fruits and vegetables, even if these foods contain nutrients that may contribute to kidney stones. ??? When shopping for convenience foods, choose: ? Whole pieces of fruit. ? Pre-made salads with dressing on the side. ? Low-fat fruit and yogurt smoothies. ??? Avoid buying frozen meals or prepared deli foods. These can be high in sodium. ??? Look for foods with live cultures, such as yogurt and kefir. ??? Choose high-fiber grains, such as whole-wheat breads, oat bran, and wheat cereals. Cooking ??? Do not add salt to food when cooking. Place a salt shaker on the table and allow each person toadd their own salt to taste. ??? Use vegetable protein, such as beans, textured vegetable protein (TVP), or tofu, instead of meat in pasta, casseroles, and soups. Meal planning ??? Eat less salt, if told by your dietitian. To do this: ? Avoid eating processed or pre-made food. ? Avoid eating fast food. ??? Eat less animal protein, including cheese, meat, poultry, or fish, if told by your dietitian. To do this: ? Limit the number of times you have meat, poultry, fish, or cheese each week. Eat a diet free of meat at least 2 days a week. ? Eat only one serving each day of meat, poultry, fish, or seafood. ? When you prepare animal proteins, cut pieces into small portion sizes. For most meat and fish, one serving is about the size of the palm of your hand. ??? Eat at least five servings of fresh fruits and vegetables each day. To do this: ? Keep fruits and vegetables on hand for snacks. ? Eat one piece of fruit or a handful of berries with breakfast. ? Have a salad and fruit at lunch. ? Have two kinds of vegetables at dinner. ??? You may be told to limit foods that are high in a substance called oxalate. These include: ? Spinach (cooked), rhubarb, beets, sweet potatoes, and Iranian chard. ? Peanuts. ? Potato chips, nigerian fries, and baked potatoes with skin on. ? Nuts and nut products. ? Chocolate. ??? If you regularly take a diuretic medicine, make sure to eat at least 1 or 2 servings of fruits or vegetables that are high in potassium each day. These include: ? Avocado. ? Banana. ? [place], prune, carrot, or tomato juice. ? Baked potato. ? Cabbage. ? Beans and split peas. Lifestyle ??? Drink enough fluid to keep your (more content not included)...NormalMercy Health St. Elizabeth Boardman HospitalBasi Metabolic Panelon 04-21-6936Wvvyxvkewv Clr Calc Yltravts465.93[facility] Physician GroupComment on above:Result Comment: PERFORMED BY: [place] [address] PATHOLOGIST INTERIOR DECORATOR [employer]APERHANGING ANNITA GOFF M.D.Performed By: #### BMP #### [address] [address] USAGFR/1.73 sq M.predicted MDRD (S/P/Bld) [Vol rate/Area] mL/min/{1.73_m2}NormalThe [facility]ters[facility] Physician GroupComment on above:Performed By: #### BMP #### [address] [address] USABasophils [#/volume] in Blood by Automated countOrdered By: Mukul Moseley on 23-54-5925Hjmgvneuv (Bld) [#/Vol]0.1 10*3/uLNormal0.0-0.2 [facility] HospitalComment on above:Result Comment: PERFORMED BY: [address] [address] PATHOLOGIST INTERIOR DECORATOR [employer]HANGING ANNITA GOFF M.D.Performed By: #### CBC #### [address] [address] USABasophils/100 leukocytes in Blood by Automated count Ordered By: Mukul Moseley on 60-20-4387Nfbpsxxht/100 WBC (Bld)1.1 %Normal. [facility] HospitalComment on above:Performed By: #### CBC #### [address] [address] USACalcium [Mass/volume] in Serum or PlasmaOrdered By: Mukul Moseley on 49-40-4235Ocqjpza [Mass/Vol]8.5 mg/dLLow8.6-10.3FWexner Medical CenterComment on above:Performed By: #### BMP #### [place] [address] USACarbon dioxide, total [Moles/volume] in Serum or Plasma Ordered By: Mukul Moseley on 18-76-8088GO8 [Moles/Vol]28.4 mmol/KRukfro73.0-31.0 [facility] HospitalComment on above:Performed By: #### BMP #### [place] [address] USAChloride [Moles/volume] in Serum or PlasmaOrdered By: Mukul Moseley on 54-28-7426Swrbmsxn [Moles/Vol]107 mmol/PEktqjq71-260JfwhmnnfdMercy Health Perrysburg HospitalComment on above:Performed By: #### BMP #### [place] [address] USAComplete Blood Count Auto Diffon 45-45-4545Sssc Corpuscular HGB Conc34.1 g/xCTfbivi41.0-35.0The [facility] Physician GroupComment on above:Performed By: #### CBC #### [place] [address] USANRBC%0.0 /100{WBC}Normal0-0.5[facility] Comment on above:Performed By: #### CBC #### [place] [address] USAWhite Blood Count9.4 [CFU]/mLNormal3.8-11.6The [facility] Physician GroupComment on above:Performed By: #### CBC #### [place] [address] USACreatinine [Mass/volume] in Serum or PlasmaOrdered By: Mukul Moseley on 34-29-3614Mxywokgazh [Mass/Vol]0.52 mg/dLLow0.60-1.20[facility] HospitalComment on above:Performed By: #### BMP #### [facility] [address] [place] [id number] USAECG 12 lead ECGon 54-54-4869STQ 12 lead ECGZANESVILLE CITY [facility] Main [place] [address] [place] [address] Electrocardiograph Report Signed Patient: Yani Joseph MR#: [id number] 7 : 1960 Acct:[id number] Age/Sex: 65 / F ADM Date: 05/23/25 Loc: [place] Room: Type: [facility] Attending Dr: Nohemi Garcia MD Ordering Provider: Mukul Moseley MD Date of Service: 05/23/2505/09/1022 ECG/ECG 12 lead ECG: preop Copies to: Test Reason : Blood Pressure : */* mmHG Vent. Rate : 73 BPM Atrial Rate : 73 BPM P-R Int : 180 ms QRS Dur : 86 ms QT Int : 410 ms P-R-T Axes : 57 -19 28 degrees QTcB Int : 451 ms Normal sinus rhythm Minimal voltage criteria for LVH, may be normal variant ( R in aVL ) Lateral infarct , age undetermined Abnormal ECG No previous ECGs available Confirmed by Juan C Iniguez ([id number]) on 05/23/2025 5:27:33 PM Referred By: Electronically Signed By: Juan C Iniguez Transcribed By: MUS Signed By Juan C Iniguez MD 05/23/25 1727[facility] Physician GroupEosinophils [#/volume] in Blood by Automated countOrdered By: Mukul Moseley on 27-61-2475Gnuyulsqbkf (Bld) [#/Vol] 0.3 10*3/uLNormal0.0-0.45[facility] HospitalComment on above: Performed By: #### CBC #### [facility] [address] [place] [address] USAEosinophils/100 leukocytes in Blood by Automated count Ordered By: Mukul Moseley on 32-87-8768Brramtktwqz/100 WBC (Bld)2.9 %Normal. [facility] HospitalComment on above:Performed By: #### CBC #### [facility] [address] [place] [address] USAErythrocyte distribution width [Ratio] by Automated count Ordered By: Mukul Moseley on 43-50-5655Svptyyauypj distribution width (RBC) [Ratio]14.1 %Widyso13.9-15.3FWexner Medical CenterComment on above: Performed By: #### CBC #### [facility] [address] [place] [address] USAErythrocytes [#/volume] in Blood by Automated countOrdered By: Mukul Moseley on 15-67-1767SRR (Bld) [#/Vol]4.83 10*6/uLNormal3.60-5.00 [facility] HospitalComment on above:Performed By: #### CBC #### [facility] [address] [place] [address] USAFL urethrocystogram retroon 67-24-0663AU urethrocystogram retroZANESVILLE CITY HOSPITAL Main [place] [address] [place] [address] Fluoroscopy Report Signed Patient: Yani Joseph MR#: [id number] 7 : 1960 Acct:[id number] Age/Sex: 65 / F ADM Date: 05/23/25 Loc: [place] Room: Type: [facility] Attending Dr: Nohemi Garcia MD Copies to: Nohemi Garcia MD Ordering Provider: Nohemi Garcia MD Date of Service: 05/23/25 FL/FL urethrocystogram retro: . Fluoroscopic assessment of left a retrograde pyelogram. Stone extraction. Stent placement HISTORY: Left ureteral stone 8 image was obtained. Cumulative Air Kerma in mGy: 11 mGy Intraoperative assessment for stone extraction and stent placement. Wire guidance. Stent in place FL/FL urethrocystogram retro IMPRESSION: Intraoperative assessment. Left ureteral stent in place Impression dictated by: Thom De La Paz M.D. 05/23/2025 4:03 PM Dictation Location: [place] [address] Transcribed By: [facility] 05/23/25 1603 Dictated By: Thom De La Paz DO 05/23/25 1601 Signed By: 05/23/25 1603[facility] Physician GroupGlomerular filtration rate [Volume Rate/Area] in Serum, Plasma or Blood by CreatinineOrdered By: Mukul Moseley on 92-41-5937Nbriswvhmw filtration rate [Volume Rate/Area] in Serum, Plasma or Blood by Creatinine> 60.0 mL/MinMercy Health Perrysburg Hospital Glucose [Mass/volume] in Serum or PlasmaOrdered By: Mukul Moseley on 05-23-2025 Glucose [Mass/Vol]109 mg/tKGzbd92-275XorpaxxqsMercy Health Perrysburg HospitalComment on above:ADA recommended reference rangeRandom Glucose Reference Range is dependent on time and content of last meal. Glucose of more than 200 mg/dL in a nonstressed, ambulatory subject supports the diagnosisof Diabetes Mellitus. Result Comment: Random Glucose Reference Range is dependent on time and content of last meal. Glucose of more than 200 mg/dL in a nonstressed, ambulatory subject supports the diagnosis of Diabetes Mellitus. ADA recommended reference rangePerformed By: #### BMP #### [facility] [address] [place] [address] USAHematocrit [Volume Fraction] of Blood by Automated count Ordered By: Mukul Moseley on 90-79-8303Rwmtpqldpu (Bld) [Volume fraction]42.5 % Ccktkp20.0-46.4FWexner Medical CenterComment on above:Performed By: #### CBC #### [place] [address] USAHemoglobin [Mass/volume] in BloodOrdered By: Mukul Moseley on 07-21-1597Vagjrgrmtn (Bld) [Mass/Vol]14.5 g/xKWykikd09.8-15.4FWexner Medical CenterComment on above:Performed By: #### CBC #### [facility] [address] [place] [address] USALeukocytes [#/volume] corrected for nucleated erythrocytes in Blood by Automated counOrdered By: Mukul Moseley on 34-84-0938JKA corrected for nucl RBC Auto (Bld) [#/Vol]9.4 10*3/uL3.8-11.6FWexner Medical CenterLeukocytes [#/volume] in Blood by Automated countOrdered By: Mukul Moseley on 02-21-6110PDZ (Bld) [#/Vol]9.4 10*3/uLNormal3.8-11.6FWexner Medical CenterComment on above:Performed By: #### CBC #### [place] [address] USALymphocytes [#/volume] in Blood by Automated countOrdered By: Mukul Moseley on 62-07-7783Pucvfhytkbx (Bld) [#/Vol]1.8 10*3/uLNormal1.00-4.8 [facility]sburg HospitalComment on above:Performed By: #### CBC #### [place] [address] USALymphocytes/100 leukocytes in Blood by Automated count Ordered By: Mukul Moseley on 51-27-4783Mkcptctsoco/100 WBC (Bld)18.8 %Normal. [facility] Perrysburg HospitalComment on above:Performed By: #### CBC #### [address] [Entitic mass] by Automated countOrdered By: Mukul Moseley on 43-11-3392PVJ (RBC) [Entitic mass]30.1 xqClsgcs56.7-34.3FWexner Medical CenterComment on above:Performed By: #### CBC #### [address] Auto (RBC) [Mass/Vol]Ordered By: Mukul Moseley on 55-53-1863YENC (RBC) [Mass/Vol]34.1 g/dL32.0-35.0Mer[facility] HospitalMCV [Entitic volume] by Automated countOrdered By: Mukul Moseley on 75-87-3834VBU (RBC) [Entitic vol]88.1 jXLykawj28-160QfckergkgMercy Health Perrysburg HospitalComment on above:Performed By: #### CBC #### [facility] [address] [place] [address] USAMonocytes [#/volume] in Blood by Automated countOrdered By: Mukul Moseley on 54-77-9500Lcucqxyzp (Bld) [#/Vol]0.7 10*3/uLNormal0.0-0.8 [facility] HospitalComment on above:Performed By: #### CBC #### [facility] [address] [place] [address] USAMonocytes/100 leukocytes in Blood by Automated count Ordered By: Mukul Moseley on 16-12-9245Sblvqczqa/100 WBC (Bld)7.1 %Normal. [facility] Perry[facility] HospitalComment on above:Performed By: #### CBC #### [facility] [address] [place] [address] USANeutrophils [#/volume] in Blood by Automated countOrdered By: Mukul Moseley on 48-66-2219Gjrzbpzpneu (Bld) [#/Vol]6.6 10*3/uLNormal1.8-7.7 [facility] Perry[facility] HospitalComment on above:Performed By: #### CBC #### [facility] [address] [place] [id number] USANeutrophils/100 leukocytes in Blood by Automated count Ordered By: Mukul Moseley on 99-12-1883Ygimtaiftiw/100 WBC (Bld)70.1 %Normal. [facility] Perrysburg HospitalComment on above:Performed By: #### CBC #### [facility] [address] [place] [address] USANo Panel InformationOrdered By: Mukul Moseley on 05-23-2025 Pharmacy Creatinine Clearance (Actn091.93[facility] Nucleated erythrocytes [Presence] in Blood by Automated countOrdered By: Mukul Moseley on 80-31-9698Awiscxoir RBC Auto Ql (Bld)0.0 /100{WBC}0-0.5FWexner Medical CenterPlatelet mean volume [Entitic volume] in Blood by Automated countOrdered By: Mukul Moseley on 60-61-0850Yjnotvcv mean volume (Bld) [Entitic vol]8.1 fLNormal6.3-10.7FWexner Medical CenterComment on above:Performed By: #### CBC #### [place] [address] USAPlatelets [#/volume] in Blood by Automated countOrdered By: Mukul Moseley on 21-97-7288Vsrjdovjn (Bld) [#/Vol]371 10*3/hWPtthhh967-730 [facility] HospitalComment on above:Performed By: #### CBC #### [place] [address] USAPotassium [Moles/volume] in Serum or PlasmaOrdered By: Mukul Moseley on 64-57-8784Cotckxxqw [Moles/Vol]3.7 mmol/LNormal3.5-5.1FWexner Medical CenterComment on above:Performed By: #### BMP #### [place] [address] USASerum or plasma anion gap determinationOrdered By: Mukul Moseley on 76-46-1787Wiloh gap [Moles/Vol]9.3 mmol/LNormal6.0-15.0Mer[facility] Perry[facility] HospitalComment on above:Performed By: #### BMP #### [place] [address] USASodium [Moles/volume] in Serum or PlasmaOrdered By: Mukul Moseley on 85-55-9562Xlxvhh [Moles/Vol]141 mmol/DYjzgxg739-472EfbqyypduMercy Health Perrysburg HospitalComment on above:Performed By: #### BMP #### [place] [address] USAUrea nitrogen [Mass/volume] in Serum or PlasmaOrdered By: Mukul Moseley on 35-23-2187Cnne nitrogen [Mass/Vol]14 mg/dLNormal7-25Mer[facility] Perrysburg HospitalComment on above:Performed By: #### BMP #### [place] [id number] USAC Urineon 14-76-1767Ulgthoxo identified Cx Nom (U) Microbiology PROCEDURE: Urine Culture [R1] SOURCE: U CleanCatch BODY SITE: COLLECTED DATE/TIME: 05/20/2025 15:08 EDT RECEIVED DATE/TIME: 05/20/2025 16:30 EDT START DATE/TIME: 05/20/2025 16:30 EDT FREE TEXT SOURCE: Kristi RIOS, Riccardo Berry PA-C, Riccardo FINAL REPORTS Final Report [] Verified Date/Time: 05/22/2025 07:25 EDT <10,000 cfu/ml Mixed skin contaminants Performing Locations R1: This test was performed at: [facility], [address] [place] [address], [id number] , , UuniyvDczbivPeoples HospitalComment on above:Performed By: #### [id number] #### [facility] [address] [place] [id number] Abdomen/Pelvis w/o Contraston 16-87-9391ZR Abdomen/Pelvis w/o ContrastExam Date/Time: 05/20/2025 15:35 EDT Reason for Exam: ABDOMINAL PAIN, ACUTE, NONLOCALIZED;Other (please specify) Report IMPRESSION: MILDLY OBSTRUCTING APPROXIMATELY 5 X 3 MM DISTAL LEFT URETERAL CALCULUS. EXAM: CT Abdomen/Pelvis w/o Contrast DATE: 05/20/2025 3:17 PM CLINICAL HISTORY: ABDOMINAL PAIN, ACUTE, NONLOCALIZED. COMPARISON: 03/30/2022. TECHNIQUE: Spiral unenhanced images were obtained of the abdomen and pelvis without contrast. All CT scans at this facility use dose modulation, iterative reconstruction, and/or weight based dosing when appropriate to reduce radiation dose to as low as reasonably achievable. Unless otherwise stated, incidental findings identified in this report do not require routine follow-up imaging. FINDINGS: Liver: No enlargement, significant fatty infiltration, suspicious mass or lesion. Biliary: The gallbladder has been removed. No abnormal biliary ductal dilatation. Pancreas: No mass, organized fluid collection, or abnormal pancreatic ductal dilatation. Spleen: Unremarkable. Adrenals: Unremarkable. Kidneys: Approximately 5 x 3 mm distal left ureteral calculus approximately 6 cm superior to the left UVJ, with mild left hydronephrosis and minimal to mild surrounding inflammation. Approximately 5 mm left upper pole calculus and diffuse mild medullary calcifications bilaterally. Both unenhanced kidneys are otherwise unremarkable. GI tract: No abnormal dilation, wall thickening, or suspicious mass. Mild sigmoid diverticulosis. Previous fundoplication and moderate sized hiatal hernia, substantially similar to 03/30/2022. The appendix is not confidently identified, without findings to suggest acute appendicitis. Lymph nodes: No pathologically enlarged lymph nodes. Vasculature: No aneurysm. Minimal calcified atherosclerotic plaquing. Mesentery/peritoneum/retroperitoneum: No free fluid, organized fluid collection, or suspicious mass. Pelvis: The nearly decompressed urinary bladder is otherwise unremarkable. Previous hysterectomy. Musculoskeletal: No acute osseous findings identified. Lower thorax: Noncontributory. Report Ordering Provider: Riccardo Berry FINAL REPORT Dictated: 05/20/2025 3:47 pm Billy Lopez MD Signed (Electronic Signature): 05/20/2025 3:47 pm Signed by: Billy Lopez MD Transcribed by: SOLIS Technologist: [facility] Hospital CenterED Clinical Summaryon [id number] Clinical SummaryED Clinical Summary [place] [address] ED Clinical Summary Person Information Name: YANI JOSEPH [facility] Age: 65 Years : 1960 Sex: Female Language: Citizen Of [place] PCP: GERA BURCIAGA DO Marital Status: Visit Id: Visit Reason: Hematuria; Nausea; Flank pain; POSS KIDNEY STONES Speciality: Acuity: 3 Enc Type: Emergency Med Service: Emergency Arrival: 05/20/2025 14:40:54 Discharge: 05/20/2025 17:11:08 LOS: 000 02:31 Checkin: 05/20/2025 14:40:54 Checkout: 05/20/2025 17:11:08 Dispo Type: Home (Routine DC) EVENTS: Event Name Event Status Request Date/Time Start Date/Time Complete Date/Time Arrive Complete 05/20/2025 14:40:54 05/20/2025 14:40:54 05/20/2025 14:40:54 Document Home Meds Request 05/20/2025 14:40:54 Triage Complete 05/20/2025 14:40:54 05/20/2025 14:46:04 05/20/2025 14:46:04 Bed Assign Complete 05/20/2025 14:41:33 05/20/2025 14:41:33 05/20/2025 14:41:33 Dr Exam Complete 05/20/2025 14:41:33 05/20/2025 14:42:12 05/20/2025 14:42:12 RN Exam Complete 05/20/2025 14:41:33 05/20/2025 15:10:56 05/20/2025 15:10:56 Registration Complete 05/20/2025 14:42:12 05/20/2025 15:15:01 05/20/2025 15:15:01 CT Complete 05/20/2025 14:56:00 05/20/2025 15:17:50 05/20/2025 15:35:13 Pending Labs Complete 05/20/2025 14:56:00 05/20/2025 15:26:55 Reg Complete Request 05/20/2025 15:15:01 Reg Bed Request Complete 05/20/2025 15:15:01 05/20/2025 15:15:01 05/20/2025 15:15:01 Pending Labs Inlab 05/20/2025 15:26:55 05/20/2025 15:26:55 Lab Inlab 05/20/2025 15:26:55 05/20/2025 15:26:55 Dr Exam Complete 05/20/2025 15:30:33 05/20/2025 15:30:33 05/20/2025 15:30:33 Registration Request 05/20/2025 15:30:33 Patient Care Request 05/20/2025 16:54:53 Discharge Complete 05/20/2025 16:56:08 05/20/2025 17:11:14 05/20/2025 17:11:14 Transfer Complete 05/20/2025 17:11:14 05/20/2025 17:11:14 05/20/2025 17:11:14 ADDRESS: [address] [place] [phone] PHYS DOC NOTES: MEDICAL INFORMATION: Prescriptions Given: New Medications [facility], [address] [place] [phone], [phone] cephalexin (Keflex 500 mg Cap) 1 Capsules By Mouth every 12 hours for 7 Days. Refills: 0. naproxen (Naprosyn 500 mg Tab) 1 Tablets By Mouth 2 times a day as needed for pain. Refills: 0. ondansetron (Zofran ODT 4 mg Tab-Dis) 1 Tablets By Mouth 3 times a day. Refills: 0. oxycodone (oxyCODONE 5 mg Tab) 1 Tablets By Mouth every 6 hours for 3 Days. Refills: 0. Medications to Continue with No Changes Other Medications alendronate (alendronate 70 mg Tab) aspirin (aspirin 81 mg Oral EC Tab) 1 Tablets By Mouth every day. budesonide-formoterol (Symbicort 160/4.5 inhalation aerosol with adapter) 2 Puffs Inhalation 2 times a day. cyproheptadine (cyproheptadine 4 mg Tab) 1 Tablets By Mouth at bedtime. losartan 50 Milligram By Mouth every day. methimazole (methimazole 10 mg Tab) 1 Tablets By Mouth Friday. montelukast (montelukast 10 mg Tab) 1 Tablets By Mouth at bedtime. Refills: 2. multivitamin (Multi Vitamins oral tablet) 1 Tablets By Mouth every day. PATIENT EDUCATION INFORMATION: Instructions: Kidney Stones Follow up: With: Address: When: Nohemi Garcia [address] [place] [phone] Business (1) In 3 days 05/23/2025 Comments: Do not eat or drink anything after midnight Friday night with the expectation of procedure on Friday. DIAGNOSIS: Kidney stoneNormalFisher Yehuda Medical CenterED Note-Physicianon [id number] Note-PhysicianED Note-Physician Basic Information Time Seen: Riccardo Berry PA-C 05/20/2025 14:42 Chief Complaint pt to ER c/o hematuria, L flank pain, and n/v that started today @1200. Pt states hx of kidney stone. 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 History of Present Illness 65-year-old female comes to the ED for evaluation of left-sided flank pain. She developed left flank pain earlier today with hematuria. She has a history of kidney stones as a concern for the same. No fever, chills, nausea, vomiting. Currently she is pain-free after taking Tylenol Motrin prior to arrival. Review of Systems A 10 point review of systems is negative except as noted above. Medical and Surgical History: Reviewed and noted Social history: Lives at home Tobacco: Denies Physical Exam Vitals & Measurements T: 36.4 ???C(Oral) HR: 82(Monitored) RR: 18 BP: 118/75 SpO2: 96% HT: 165 cm WT: 83.5 kg BMI: 30.67 Nurses notes and vital signs reviewed and patient is not hypoxic. General: The patient appears well, resting comfortably. Skin: Warm, dry. Head: Atraumatic. Neck: No JVD. Eye: Normal conjunctiva. Ears, Nose, Mouth, and Throat: Moist mucous membranes. Cardiovascular: Strong distal pulses. Chest wall: Respiratory: Respirations are nonlabored. Back: Normal range of motion. Musculoskeletal: Normal ROM with no gross deformity. Gastrointestinal: Urological: Neurological: Awake and alert. No focal deficits. Follows commands. Psychiatric: Cooperative. Medical Decision Making Urinalysis does show hematuria. Does have some WBCs as well. Nitrate negative. CT scan shows a 5 x 3 distal left urethral calculus. This is discussed with patient. She is very well-appearing. She hasbeen resting comfortably without any pain medications for over 2 hours. Patient is hesitant to be discharged home however, she states that she has required stenting multiple times with her previous stones. She describes an anatomical variant causing her stones to become lodged distally despite relatively small size. This is discussed with urology, Dr. Garcia. Given her excellent clinical exam, stable vital signs, good pain control, we do not feel that she needs emergent intervention. However, given the history she will need close follow-up. She is discharged home with pain medications, urine strainer, Flomax, but is to be n.p.o. after midnight Friday night with the expectation of intervention on Friday. Urology will reach out to her Friday morning for appointment time. This is discussed withpatient and family who readily agree with the plan. They will return if symptoms worsen or change, otherwise they will follow-up with urology Friday morning for likely intervention. Assessment/Plan Kidney stone (N20.0: Calculus of kidney) Ordered: oxycodone, 5 mg = 1 tab(s), Oral, q6hr, X 3 day(s), # 15 tab(s), Refills(s) 0, Pharmacy: [facility], 165, cm, 05/20/25 14:46:00 EDT, Height/Length Dosing, 83.5, kg, 05/20/25 14:46:00 EDT, Weight Dosing Orders: cephalexin, 500 mg = 1 cap(s), Oral, q12hr, X 7 day(s), # 14 cap(s), Refills(s) 0, Pharmacy: [facility], 165, cm, 05/20/25 14:46:00 EDT, Height/Length Dosing, 83.5, kg, 05/20/25 14:46:00 EDT, Weight Dosing naproxen, 500 mg = 1 tab(s), Oral, BID, PRN for pain, # 20 tab(s), Refills(s) 0, Pharmacy: [facility], 165, cm, 05/20/25 14:46:00 EDT, Height/Length Dosing, 83.5, kg, 05/20/25 14:46:00 EDT, Weight Dosing ondansetron, 4 mg = 1 tab(s), Oral, TID, # 15 tab(s), Refills(s) 0, Pharmacy: [facility], 165, cm, 05/20/25 14:46:00 EDT, Height/Length Dosing, 83.5, kg, 05/20/25 14:46:00 EDT, WeightDosing CT Abdomen/Pelvis w/o Contrast UA with Cult Rflx Urine Culture Urine Strainer to go Disposition Plan Patient Discharge Condition Disposition: Discharged home Condition: Improved and stable Counseled: Patient and/or family were counseled to workup, results, treatment plan and follow-up recommendations Discharge Prescription List Prescriptions Keflex 500 mg Cap, 500 mg= 1 cap(s), Oral, q12hr Naprosyn 500 mg Tab, 500 mg= 1 tab(s), Oral, BID, PRN oxyCODONE 5 mg Tab, 5 mg= 1 tab(s), Oral, q6hr Zofran ODT 4 mg Tab-Dis, 4 mg= 1 tab(s), Oral, TID Follow-up With When Contact Information Nohemi Garcia In 3 days 05/23/2025 EDT [address] [place] [phone] Business (1) Additional Instructions: Do not eat or drink anything after midnight Friday night with the expectation of procedure on Friday. Patient Education Kidney Stones Attestation I performed a substantive part of the MDM during the patient???s E/M visit. I personally made or approved the documented management plan and acknowledge its risk of complications. (Independent Interpretation) My (EKG/X-Ray/US/CT) interpretation as above. (Discussion) Management/test interpretation discussed with APC. This report was transcribed using voice recognition software. Every effort was made to ensur (more content not included)...[facility] Comment on above:Result Comment: Electronically Signed By: Riccardo Berry PA-C\.br\Date and Time Signed: 05/20/2517:03 EDT\.br\Electronically Co-Signed By: Radha Farrell DO\.br\Date and Time Co-Signed: 05/20/25 18:05 EDTED Patient Summaryon [id number] Patient SummaryED Patient Summary [place] [id number] Patient Discharge Instructions Person Information Name: YANI JOSEPH Age: 65 Years Arrival Date: 05/20/2025 14:40:54 Discharge Diagnosis: Kidney stone Primary Care Physician: GERA BURCIAGA DO Provider Information Primary Provider: Radha Farrell DO Advanced Cyber Operator:Riccardo Berry PA-C The exam and treatment you received in the Emergency Department were for an urgent problem and are not intended as complete care. It is important that you follow up with a doctor, nurse practitioner,or physician???s internet marketing assistant for ongoing care. If your symptoms become worse or you do not improve asexpected and you are unable to reach your usual health care provider, you should return to the Emergency Department. We are available 24 hours a day. YANI JOSEPH has been given the following list of patient education materials, prescriptions and follow-up instructions: Follow-up Instructions: With: Address: When: Nohemi Garcia [address] [place] [phone] Business (1) In 3 days 05/23/2025 Comments: Do not eat or drink anything after midnight Friday night with the expectation of procedure on Friday. In the event that this physician does not participate in your insurance network, please consult with your insurance company to find a nearby participating provider. Patient Education Materials: Kidney Stones A MESSAGE TO ALL PATIENTS REGARDING OPIOIDS PRESCRIPTION OPIOIDS: WHAT YOU NEED TO KNOW Prescription opioids can be used to help relieve ofrfzsgo-zx-lmvxwq pain and are often prescribed following a surgery or injury, or for certain health conditions. These medications can be an important part of the treatment but also come with serious risks. It is important to work with your healthcare provider to make sure you are getting the safest, most effective care. WHAT ARE THE RISKS AND SIDE EFFECTS OF OPIOID USE? Prescription opioids carry serious risks of addiction and overdose, especially with prolonged use. An opioid overdose, often marked by slowed breathing, can cause sudden . The use of prescription opioids can have a number of side effects as well, even when taken as directed: ??? Tolerance???meaning you might need to take more of the medication for the same pain relief ??? Physical dependence???meaning you have symptoms of withdrawal when a medication is stopped ??? Increased sensitivity to pain ??? Constipation ??? Nausea, vomiting, and dry mouth ??? Sleepiness and dizziness ??? Confusion ??? Depression ??? Low levels of testosterone that can result in lower sex drive, energy, and strength ??? Itching and sweating RISKS ARE GREATER WITH: ??? History of drug misuse, substance use disorder, or overdose ??? Mental health conditions (such as depression or anxiety) ??? Sleep apnea ??? Older age (65 years and older) ??? Avoid alcohol while taking prescription opioids. Also, unless specifically advised by your health care provider, medications to avoid include: ??? Benzodiazepines (such as Xanax or Valium) ??? Muscle relaxants (such as Soma or Flexeril) ??? Hypnotics (such as Ambien or Lunesta) ??? Other prescription opioids KNOW YOUR OPTIONS Talk to your health care provider about ways to manage your pain that don???t involve prescription opioids. Some of these options may actually work better and have fewer risks and side effects. Options may include: ??? Pain relievers such as acetaminophen, ibuprofen, and naproxen ??? Some medication that are also used for depression or seizures ??? Physical therapy and exercise ??? Cognitive behavioral therapy, a psychological, goal-directed approach, in which patients learn how to modify physical, behavioral, and emotional triggers of pain and stress. IF YOU ARE PRESCRIBED OPIOIDS FOR PAIN: ??? Never take opioids in greater amounts or more often than prescribed. ??? Follow up with your primary health care provider. o Work together to create a plan on how to manage your pain. o Talk about ways to help manage your pain that don???t involve prescription opioids. o Talk about any and all concerns and side effects. ??? Help prevent misuse and abuse o Never sell or share prescription opioids. o Never use another person???s prescription opioids. ??? Store prescription opioids in a secure place and out of reach of others (this may include visitors, children, friends, and family). ??? Safely dispose of unused prescription opioids: Find your community drug take-back program or your pharmacy mail-back program, or flush them down the toilet, following guidance from the Food and Drug Administration (www.fda.gov/Drugs/ResourcesForYou). ??? Visit www.cdc.gov/drugoverdose to learn about the risks of opioids abuse and overdose. (more content not included)...[facility] HospitalUA with Cult Rflx on [phone] (U)BrownAbnormalYellowMercy Health St. Elizabeth Boardman HospitalComment on above:Result Comment: Microscopic readings are only performed on those samples that meet specific criteria set forth by [facility]. Performed By: #### [id number] #### [facility] [address], [place] [address]Fvnejwn (U) [Mass/Vol]NegativeNormalNegativeMercy Health St. Elizabeth Boardman HospitalComment on above:Performed By: #### [id number] #### [facility] [address], [place] [address]Prvuzoj Ql (U)NegativeNormalNegativeMercy Health St. [facility] Comment on above:Performed By: #### [id number] #### [facility] [address], [place] [address]NY Blood3+ mg/dLAbnormalNegCleveland Clinic [facility] Comment on above:Performed By: #### [id number] #### [facility] [address], [place] [address]RW BacteriaTraceNormalTraceMercy Health St. [facility] HospitalComment on above:Performed By: #### [id number] #### [facility] [address], [place] [address]TW ClarityTurbidAbnormalClearFisher Saint Luke InstituteComment on above:Performed By: #### [id number] #### [facility] [address], [place] [address]GL Leuk Est25 Eliezer/uLNormalNegCleveland Clinic Akron General Comment on above:Performed By: #### [id number] #### [facility] [address], [place] [address]BT MucousNegativeNormalNegCleveland Clinic Akron General Comment on above:Performed By: #### [id number] #### [facility] [address], [place] [address]TP NitriteNegativeNormalNegCleveland Clinic Akron General Comment on above:Performed By: #### [id number] #### [facility] [address], [place] [address]CW pH6.0Invalid Interpretation Code5.0-9.0[facility] Boardman HospitalComment on above:Performed By: #### [id number] #### [facility] [address], [place] [address]SJ Protein1+ mg/dLAbnormalNegativeMercy Health St. [facility] Comment on above:Performed By: #### [id number] #### [facility] [address], [place] [address]CQ RBC>94Gljlxuck1-0MreyehUniversity Hospitals Geneva Medical CenterComment on above:Performed By: #### [id number] #### [facility] [address], [place] [address]RU Spec Grav1.009Invalid Interpretation Code1.005-1.030[facility] St[facility] Boardman HospitalComment on above:Performed By: #### [id number] #### [facility] [address], [place] [address]JS Squam Epithelial3-4Invalid Interpretation CodeMercy Health St. Elizabeth Boardman HospitalComment on above:Performed By: #### [id number] #### [facility] [address], [place] [address]WJ UrobilinogenNegativeNormpaNegativeMercy Health St. Elizabeth Boardman HospitalComment on above:Performed By: #### [id number] #### [facility] [address], [place] [address]IW NXP33-69Qwwxoanh8-7ZsbodvUniversity Hospitals Geneva Medical CenterComment on above:Performed By: #### [id number] #### [facility] [address], [place] [address]Ntblidcjfhlz (U) [Mass/Vol]NegativeNormalNegativeMercy Health St. Elizabeth Boardman HospitalComment on above:Performed By: #### [id number] #### [facility] [address], [place] [address]XR Spec DescClean CatchNormalMercy Health St. [facility] HospitalComment on above:Performed By: #### [id number] #### [facility] [address], [place] [address]YNKFVJCCmu 08-79-7992Hpvkmjiy [Mass/Vol]15 ng/jLVvaikm42-297 [facility] HospitalComment on above:Performed By: #### FERR ####[facility] ([facility])[address], [place] [address] VIR IRON AND TIBCon 44-45-2403Ndwq [Mass/Vol]52 ug/qRCoscrc10-009QulPtuchj [facility] HospitalComment on above:Performed By: #### FEPR ####[facility] ([facility])[address], [place] [address] VIRIRON NIWWTLH263 ug/rXXqekge030-031EwnRnzsxs [facility] HospitalComment on above:Performed By: #### FEPR ####[facility] ([facility])[address], [place] [address] VIRIRON PALWOMBTKV19 % JPXTLKSNARMdo89-25NluEiktnw [facility] HospitalComment on above:Performed By: #### FEPR ####[facility] ([facility])[address], [place] [address] VIRTransferrin [Mass/Vol]300 mg/lASjghup525-144BuqPpgsfs [facility] HospitalComment on above: Performed By: #### FEPR ####[facility] ([facility])[address], [place] [address] VIRUrology Office/Clinic Noteon 04-11-2025 Urology Office/Clinic NoteUrology Office/Clinic Note Chief Complaint 1 year follow up with KUB/NABIL HPI Staff 65 year old female here for 1 year with NABIL and KUB. KUB/NABIL done at [facility] 03/04/25. S/P cysto/stent removal 02/19/24, cysto 01/24/22 Previous DX: kidney stone and asymptomatic bacteruria BBSQ: 4 Denies dysuria, denies visible blood, denies lower abdominal pain/flank pain. Review of Systems PHQ Score Initial Depression Screen Score: 0 SCORE No fever, chills, malaise, myalgia. No abdominal pain, flank pain, gross hematuria. Physical Exam Vitals & Measurements T: 36.8 ???C(Temporal Artery) HR: 73(Peripheral) RR: 16 BP: 134/84 HT: 65 in HT: 165 cm WT: 186.511 lb WT: 84.6 kg BMI: 31.07 General: nontoxic, NAD Mouth: moist mucosa Lungs: normal respiratory effort Cardio: regular rate, good distal perfusion Abdomen: nondistended Neurologic: Grossly normal Skin: No rashes or suspicious lesions Assessment/Plan UA trace hgb trace leuk. Asx. BBSQ 4 total control. 1. Kidney stone (N20.0: Calculus of kidney) [...] mm RUP stable. No R sided stones. 03/11/24: Reviewed imaging with pt. Has been doing well since stone procedure. Discussed 50/50 chance of passing vs requiring surgical intervention for remaining stone. Pt elects to cont to monitor ptto keep appt for 02/2025. Shares she did a 24 hour urine and was only told to increase her fluid intake. Also showed to limit oxalates in diet. Educated pt on dietary modifications and fluid intake for stone prevention. Educational pamphlets provided. TODAY: KUB 03/04 6mm stone, stable (report says L side but I believe this is a typo as it was on R last yr and NABIL says it's on R. However I cannot view image to confirm). No hydro on NABIL. No sx. Wishes to monitor, does not wish to proceed w lithotripsy. Will f/u 1 yr w KUB/NABIL prior. Sooner PRN issues arise. Follow-up With When Contact Information KADE RIOS, LORA Pinto, URL In 1 year [address] [place] [address] Additional Instructions: Patient Education Kidney Stones, Aama-yh-Stbb Problem List/Past Medical History Ongoing Asymptomatic bacteriuria BMI 27.0-27.9,adult Graves disease Hypertension Hyperthyroidism Kidney stone Pulmonary embolus Sinusitis Historical Ureteral stone Procedure/Surgical History Colonoscopy (10/18/2024), Cystoscopic removal of ureteric stent (02/19/2024), Cystoscopy (01/24/2022), Esophagogastroduodenoscopy and biopsy (01/08/2021), Colonoscopy (10/14/2019), Appendectomy, Cholecystectomy, History of knee surgery, Repair of diaphragmatic hiatal hernia by thoracoabdominal approach, Total hysterectomy. Medications alendronate 70 mg Tab aspirin 81 mg Oral EC Tab, 81 mg= 1 tab(s), Oral, Daily cyproheptadine 4 mg Tab, 4 mg= 1 tab(s), Oral, Bedtime losartan, 50 mg, Oral, Daily methimazole 10 mg Tab, 10 mg= 1 tab(s), Oral, MonWedFri montelukast 10 mg Tab, 10 mg= 1 tab(s), Oral, Bedtime, 2 refills Multi Vitamins oral tablet, 1 tab(s), Oral, Daily Symbicort 160/4.5 inhalation aerosol with adapter, 2 puff(s), Inhalation, BID Allergies No Known Allergies No Known Medication Allergies Social History Alcohol - Denies Alcohol Use, 10/11/2019 Never., 03/05/2025 Substance Abuse - Denies Substance Abuse, 10/11/2019 Never., 03/05/2025 Tobacco - Denies Tobacco Use, 10/11/2019 Former smoker, quit more than 30 days ago Tobacco Use:. Never Smokeless Tobacco Use:. Cigarettes, 03/08/2025 Family History Diabetes mellitus type 2: Mother [...] 2023-11-25: TPV23 SARS-CoV-2 (COVID-19) mRNA-1273 vaccine 11/08/2020 Recorded 2023-11-25: TPV23 influenza virus vaccine, inactivated 06/16/2020 Recorded influenza virus vaccine, inactivated 06/08/2019 Recorded influenza virus vaccine, inactivated 05/09/2018 Recorded influenza virus vaccine, inactivated 05/09/2017 Recorded influenza vi (more content not included)...[facility] Comment on above:Result Comment: Electronically Signed By: LORA BRAUN PA-C\.br\Date and Time Signed: 04/11/2509:04 EDTXR ANKLE LT MIN 3 VWSon 03-31-2025 XR ANKLE LT MIN 3 VWSXR ANKLE LT MIN 3 VWS XR ANKLE LT MIN 3 VWS INDICATION: Ankle pain COMPARISON: None FINDINGS: No acute fracture or dislocation. Soft tissue prominence surrounds ankle. IMPRESSION: No acute osseous abnormality of the left ankle. Soft tissue prominence surrounds the ankle. Finalized by Lan Melgoza on 03/31/2025 1:07 PMNOhioHealth Shelby HospitalXR FOOT LT MIN 3 VWSon [id number] FOOT LT MIN 3 VWSXR FOOT LT MIN 3 VWS XR FOOT LT MIN 3 VWS CLINICAL INFORMATION: pain. COMPARISON: None. IMPRESSION: * No fracture. Mild soft tissue swelling. Scattered degenerative changes. Finalized by Radha Olivarez MD on 03/31/2025 1:13 PMNOhioHealth Shelby HospitalAmbulatory Visit Summaryon [id number] Visit SummaryAmbulatory Visit Summary EM JOSEPHN Delio :1960 Visit Date:03/08/2025 Ambulatory Visit Instructions Your Diagnosis Kidney stone Your Care Team Attending Physician - LORA BRAUN PA-C Primary Care Physician - GERA BURCIAGA DO This Is Your Medications List alendronate (alendronate 70 mg Tab) aspirin (aspirin 81 mg Oral EC Tab) budesonide-formoterol (Symbicort 160/4.5 inhalation aerosol with adapter) cyproheptadine (cyproheptadine 4 mg Tab) losartan methimazole (methimazole 10 mg Tab) montelukast (montelukast 10 mg Tab) multivitamin (Multi Vitamins oral tablet) Procedures Performed Colonoscopy (10/18/2024), Cystoscopic removal of ureteric stent (02/19/2024), Cystoscopy (01/24/2022), Esophagogastroduodenoscopy and biopsy (01/08/2021), Colonoscopy (10/14/2019), Appendectomy, Cholecystectomy, History of knee surgery, Repair of diaphragmatic hiatal hernia by thoracoabdominal approach, Total hysterectomy. Discharge Vitals Temperature (Temporal Artery) 36.8 ???C Heart Rate (Peripheral) 73 Respiratory Rate 16 Blood Pressure 134/84 Height 165 cm Height 65 in Weight 84.6 kg Weight 186.511 lb BMI 31.07 What to do next Scheduled Follow-Up Appointments Friday2025 8:20 AM EDT With: LORA BRAUN PA-C Where: [facility] [id number]- Medications What How Much When Instructions Unchanged alendronate (alendronate 70 mg Tab) Unchanged aspirin (aspirin 81 mg Oral EC Tab) 1 Tablets By Mouth Every day Unchanged budesonide-formoterol (Symbicort 160/ 4.5 inhalation aerosol with adapter) 2 Puffs Inhalation 2 times a day Unchanged cyproheptadine (cyproheptadine 4 mg Tab) 1 Tablets By Mouth At bedtime Unchanged losartan 50 Milligram By Mouth Every day Unchanged methimazole (methimazole 10 mg Tab) 1 Tablets By Mouth Friday Unchanged montelukast (montelukast 10 mg Tab) 1 Tablets By Mouth At bedtime Unchanged multivitamin (Multi Vitamins oral tablet) 1 Tablets By Mouth Every day Allergies No Known Allergies No Known Medication Allergies Problems Ongoing - Any problem that you are currently receiving treatment for. Asymptomatic bacteriuria BMI 27.0-27.9,adult Graves disease Hypertension Hyperthyroidism Kidney stone Pulmonary embolus Sinusitis Historical - Any problem that you are no longer receiving treatment for. Ureteral stone Patient Survey You may receive a survey via text or e-mail asking about your office visit. Please share your experience with us by completing your survey. We appreciate your feedback and thank you for choosing us for your care. Patient Portal You may access all of your results and other medical record information on our secure patient portal. If you are not signed up for this yet, please contact [facility] at [phone] to get signed up today. Language Information Language assistance services are available as needed. [facility] WITH AUTO DIFFERENTIALon [id number] ABSOLUTE COUNT (10*3/UL) BY AUTOMATED COUNT0.0 10*3/uLNormal [facility] HospitalComment on above:Performed By: #### CBCA ####[facility] ([address] VIRBASOPHILS RELATIVE PERCENT BY AUTOMATED COUNT0.4 %[facility] HospitalComment on above:Performed By: #### CBCA ####[facility] ([address] [id number] VIRCELLAVISION DIFFERENTIAL TYPE AUTOMATED DIFFERENTIALOhioHealth O'Bleness HospitalComment on above:Performed By: #### CBCA ####[address] [id number] VIREosinophils (Bld) [#/Vol]0.0 10*3/uLNormalMedina HospitalComment on above:Performed By: #### CBCA ####[address] [id number] VIREOSINOPHILS RELATIVE PERCENT BY AUTOMATED COUNT0.5 %[facility] HospitalComment on above:Performed By: #### CBCA ####[facility] ([place])[address], [id number] VIRErythrocyte distribution width (RBC) [Ratio]14.3 %Cjehia21.5-15[facility] HospitalComment on above:Performed By: #### CBCA ####[facility] ([address], [id number] VIRHematocrit (Bld) [Volume fraction]34.3 %Dnc00-54 [facility] HospitalComment on above:Performed By: #### CBCA ####[facility] ([address], [id number] VIRHemoglobin (Bld) [Mass/Vol]11.7 g/iXFrjiee39.7-15.5[facility] HospitalComment on above:Performed By: #### CBCA ####[facility] ([address], [id number] VIRLYMPHOCYTES ABSOLUTE COUNT (10*3/UL) BY AUTOMATED COUNT1.8 10*3/uLNoalMedina HospitalComment on above: Performed By: #### CBCA ####[facility] ([address], [id number] VIRLYMPHOCYTES RELATIVE PERCENT BY AUTOMATED COUNT16.8 %NormalMedina HospitalComment on above:Performed By: #### CBCA ####[facility] ([address], [id number] VIRMCH (RBC) [Entitic mass]30.0 vgJpadxm08-22DdrIxkqdmMedina HospitalComment on above:Performed By: #### CBCA ####[facility] ([address], [address] VIRMCHC (RBC) [Mass/Vol]34.2 g/dLNormal 32-36[facility] HospitalComment on above:Performed By: #### CBCA ####[facility] ([address] VIRMCV (RBC) [Entitic vol]88 gFAgxypy53-795BbvPkmzkc [facility] HospitalComment on above:Performed By: #### CBCA ####[facility] ([address], [id number] VIRMONOCYTES ABSOLUTE COUNT (10*3/UL) BY AUTOMATED COUNT1.2 10*3/uLNormalMedina HospitalComment on above: Performed By: #### CBCA ####[facility] ([address], [id number] VIRMONOCYTES RELATIVE PERCENT BY AUTOMATED COUNT10.9 % NormalMedina HospitalComment on above:Performed By: #### CBCA ####[facility] ([address], [id number] VIRNEUTROPHILS ABSOLUTE COUNT BY AUTOMATED COUNT7.6 10*3/uLNormalMedina HospitalCommclaren oakland on above:Performed By: #### CBCA ####[facility] ([address], [id number] VIRNEUTROPHILS RELATIVE PERCENT BY AUTOMATED COUNT71.4 %NormalMedina HospitalComment on above:Performed By: #### CBCA ####[facility] ([address], [id number] VIRPlatelet mean volume (Bld) [Entitic vol]8.8 fLNormal7-12[facility] HospitalComment on above:Performed By: #### CBCA ####[facility] ([address], [id number] VIRPlatelets (Bld) [#/Vol]251 10*3/tAAaqxpb595-158RiaJgucxr [facility] HospitalComment on above:Performed By: #### CBCA ####[facility] ([facility])[address], [place] VIRRBC COUNT3.92 X10E12/LNormal3.8-5.2POhioHealth Grove City Methodist HospitalComment on above:Performed By: #### CBCA ####[facility] ([facility])[address] [id number] VIRWBC (Bld) [#/Vol]10.7 10*3/uLNormal4-11[facility] HospitalComment on above:Performed By: #### CBCA ####[facility] ([facility] [address], [id number] VIRCOMPREHENSIVE METABOLIC PANELon 18-35-4478Ipyadjl [Mass/Vol]2.4 g/dLLow3.2-5.3POhioHealth Grove City Methodist Hospital Comment on above:Performed By: #### CMP ####[facility] ([facility])[address] [place] [address] [place] [address] VIRALP [Catalytic activity/Vol]98 U/L Jdswho38-134GfdPmiqruMedina HospitalComment on above:Performed By: #### CMP ####[facility] ([facility])[address] [place] [address], [place] [address] VIRALT [Catalytic activity/Vol]30 U/LNormal<=31POhioHealth Grove City Methodist Hospital Comment on above:Performed By: #### CMP ####[facility] ([facility] [place] [address] VIRAnion gap [Moles/Vol]5 mmol/LNormal 5-15ProBaylor Scott And White Medical Center – FriscoComment on above:Performed By: #### CMP ####[facility] ([facility] [address], [place] [address] VIRAST [Catalytic activity/Vol]26 U/LNormal<=41[facility] Comment on above:Performed By: #### CMP ####[facility] ([address] [place] [address] VIRBilirubin [Mass/Vol]0.7 mg/dLNormal 0.3-1.2POhioHealth Grove City Methodist HospitalComment on above:Performed By: #### CMP ####[facility] ([address], [place] [address] VIRCalcium [Mass/Vol]7.4 mg/dLLow8.5-10.5POhioHealth Grove City Methodist HospitalComment on above:Performed By: #### CMP ####[facility] ([address] [place] [address] VIRChloride [Moles/Vol]109 mmol/HXqkuai20-614 [facility] HospitalComment on above:Performed By: #### CMP ####[facility] ([address] [place] [address] VIRCO2 [Moles/Vol]25 mmol/HYuuskj43-30GfqQqnziyOhioHealth Grove City Methodist HospitalComment on above: Performed By: #### CMP ####[facility] ([address] [place] [address] VIRCreatinine [Mass/Vol]0.43 mg/dLNormal0.40-1.00 [facility] HospitalComment on above:Result Comment: METHOD TRACEABLE TO IDMS STANDARDPerformed By: #### CMP ####[facility] ([address] [address] VIREGFR (CKD-EPI) NON-RACE DEPENDENT >^90Normal>=60ProBaylor Scott And White Medical Center – FriscoComment on above:Result Comment: eGFR not reported due to non-numeric value for Creatinine. Reported eGFR is based on the CKD-EPI 2021 equation that does not use a race coefficient.Performed By: #### CMP ####[facility] ([address] [place] [address] VIRGlucose [Mass/Vol]96 mg/kXXmjyyp87-32LuyMaikppBaylor Scott And White Medical Center – FriscoComment on above:Performed By: #### CMP ####[facility] ([address] [place] [address] VIRPotassium [Moles/Vol]3.9 mmol/LNormal3.5-5.0[facility] Comment on above:Performed By: #### CMP ####[facility] ([address] [place] [address] VIRProtein [Mass/Vol]5.9 g/dLLow 6.0-8.0[facility] HospitalComment on above:Performed By: #### CMP ####[facility] ([address] [address] VIRSodium [Moles/Vol]139 mmol/UPznzvm974-689WenZwviehMedina Hospital Comment on above:Performed By: #### CMP ####[facility] ([address] [address] VIRUrea nitrogen [Mass/Vol]15 mg/dL Normal5-27ProBaylor Scott And White Medical Center – FriscoComment on above:Performed By: #### CMP ####[facility] ([address] [address] VIRMAGNESIUMon 07-94-4209Ufkyniger [Mass/Vol]2.2 mg/dLNormal1.8-2.6 [facility] HospitalComment on above:Performed By: #### MG ####[facility] ([address] [address] VIRBLOOD CULTUREon 50-56-5287Oyhhocoa identified Cx Nom (Bld)CULTURE RESULTS NO GROWTH 5 DAYSNormalMedina HospitalComment on above:Order Comment: *SIRS Criteria: (must display 2 without other explanation)-Temperature < 36 or >38-Pulse >90-Resp rate >20-WBC less than 4K or greater than 12KRepeat blood cultures not needed:-To document that a blood culture is a contaminant when 1 of 2 bottles is positive for a common contaminant (already listed in [facility] with the culture result)-To document clearance of gram negative bacteremia in patients with suspected urinary source who are improvingSuboptimal volume of blood collected, Results may be affected.Performed By: #### BC ####[facility] ([facility])[address] [address] VIR Bacteria identified Cx Nom (Bld)CULTURE RESULTS NO GROWTH 5 DAYSNoSelect Medical OhioHealth Rehabilitation HospitalComment on above:Order Comment: *SIRS Criteria: (must display 2 without other explanation)-Temperature < 36 or >38-Pulse >90-Resp rate >20-WBC less than 4K or greater than 12KRepeat blood cultures not needed:-To document that a blood culture is a contaminant when 1 of 2 bottles is positive for a common contaminant (already listed in [facility] with the culture result)-To document clearance of gram negative bacteremia in patients with suspected urinary source who are improvingPerformed By: #### BC ####[facility] ([facility])[address] [address] VIRCBC WITH AUTO DIFFERENTIALon 45-51-0899LLKYNNMWX ABSOLUTE COUNT (10*3/UL) BY AUTOMATED COUNT0.0 10*3/uLNoSelect Medical OhioHealth Rehabilitation HospitalComment on above:Performed By: #### CBCA #### [facility] ([address] [place] [address] VIRBASOPHILS RELATIVE PERCENT BY AUTOMATED COUNT0.2 %Normal [facility] HospitalComment on above:Performed By: #### CBCA #### [facility] ([address] [place] [address] VIRCELLAVISION DIFFERENTIAL TYPEAUTOMATED DIFFERENTIALNormal [facility] HospitalComment on above:Performed By: #### CBCA #### [facility] ([address] [place] [address] VIREosinophils (Bld) [#/Vol]0.0 10*3/uLNoSelect Medical OhioHealth Rehabilitation HospitalComment on above:Performed By: #### CBCA #### [facility] ([address] [place] [address] VIREOSINOPHILS RELATIVE PERCENT BY AUTOMATED COUNT0.0 %Normal [facility] HospitalComment on above:Performed By: #### CBCA #### [facility] ([address] [place] [address] VIRErythrocyte distribution width (RBC) [Ratio]13.8 %Normal 11.5-15[facility] HospitalComment on above:Performed By: #### CBCA #### [facility] ([address] [place] [address] VIRHematocrit (Bld) [Volume fraction]39.5 %Eyroqy93-27 [facility] HospitalComment on above:Performed By: #### CBCA #### [facility] ([address] [place] [address] VIRHemoglobin (Bld) [Mass/Vol]13.4 g/yYEmkefi20.7-15.5 [facility] HospitalComment on above:Performed By: #### CBCA #### [facility] ([address] [place] [address] VIRLYMPHOCYTES ABSOLUTE COUNT (10*3/UL) BY AUTOMATED COUNT0.7 10*3/uLNormalMedina HospitalComment on above:Performed By: #### CBCA #### [facility] ([address] [place] [address] VIRLYMPHOCYTES RELATIVE PERCENT BY AUTOMATED COUNT3.9 %Normal [facility] HospitalComment on above:Performed By: #### CBCA #### [facility] ([address] [place] [address] VIRMCH (RBC) [Entitic mass]29.5 buWqwvlp85-73YfhBjutbpMedina HospitalComment on above:Performed By: #### CBCA #### [facility] ([address] [place] [address] VIRMCHC (RBC) [Mass/Vol]34.0 g/mSMaruih86-55YykSvnlwbBaylor Scott And White Medical Center – FriscoComment on above:Performed By: #### CBCA #### [facility] ([facility]) [address] [place], [place] [address] [address] VIRMCV (RBC) [Entitic vol]87 oIFzpebu27-471JkhWmsjcy [facility] HospitalComment on above:Performed By: #### CBCA #### [facility] ([address] [place] [address] VIRMONOCYTES ABSOLUTE COUNT (10*3/UL) BY AUTOMATED COUNT1.1 10*3/uLNoSelect Medical OhioHealth Rehabilitation HospitalComment on above:Performed By: #### CBCA #### [facility] ([address] [place] [address] VIRMONOCYTES RELATIVE PERCENT BY AUTOMATED COUNT6.7 %Normal [facility] HospitalCommclaren [place]land on above:Performed By: #### CBCA #### [facility] ([address] [place] [address] VIRNEUTROPHILS ABSOLUTE COUNT BY AUTOMATED COUNT15.0 10*3/uL NormalMedina HospitalCommclaren oakland on above:Performed By: #### CBCA #### [facility] ([address] [place] [address] VIRNEUTROPHILS RELATIVE PERCENT BY AUTOMATED COUNT89.2 %Normal [facility] HospitalComment on above:Performed By: #### CBCA #### [facility] ([place] [address] [place] [address] VIRPlatelet mean volume (Bld) [Entitic vol]8.2 fLNormal7-12 [facility] HospitalComment on above:Performed By: #### CBCA #### [facility] ([place] [address] [place] [address] VIRPlatelets (Bld) [#/Vol]289 10*3/eXYugart143-120EziOctwwp [place] HospitalComment on above:Performed By: #### CBCA #### [facility] ([place] [address] [place] [address] VIRRBC COUNT4.56 X10E12/LNormal3.8-5.2POhioHealth Grove City Methodist HospitalComment on above:Performed By: #### CBCA #### [facility] ([address] [place] [address] VIRWBC (Bld) [#/Vol]16.9 10*3/uLHigh4-11Medina HospitalComment on above:Performed By: #### CBCA #### [facility] ([address] [place] [address] VIRCOMPREHENSIVE METABOLIC PANELon 89-63-7944Bixukba [Mass/Vol]3.1 g/dLLow3.2-5.3POhioHealth Grove City Methodist HospitalComment on above:Performed By: #### CMP #### [facility] ([address] [place] [address] VIRALP [Catalytic activity/Vol]122 U/FPhareo76-964UyxRfcjbeBaylor Scott And White Medical Center – FriscoComment on above:Performed By: #### CMP #### [facility] ([address] [place] [address] VIRALT [Catalytic activity/Vol]37 U/LHigh<=31POhioHealth Grove City Methodist HospitalComment on above:Performed By: #### CMP #### [facility] ([address] [place] [address] VIRAnion gap [Moles/Vol]8 mmol/LNormal5-15ProBaylor Scott And White Medical Center – FriscoComment on above:Performed By: #### CMP #### [facility] ([address] [place] [place] [address] VIRAST [Catalytic activity/Vol]20 U/LNormal<=41ProOhio State East Hospital HospitalComment on above:Performed By: #### CMP #### [facility] ([address] [place] [address] VIRBilirubin [Mass/Vol]0.6 mg/dLNormal0.3-1.2ProMedSpecialty Hospital of Southern CaliforniaComment on above:Performed By: #### CMP #### [facility] ([address] [facility] [address] VIRCalcium [Mass/Vol]8.5 mg/dLNormal8.5-10.5POhioHealth Grove City Methodist HospitalComment on above:Performed By: #### CMP #### [facility] ([address] [place] [address] VIRChloride [Moles/Vol]106 mmol/MAqiauw77-793YluTmvuzdBaylor Scott And White Medical Center – FriscoComment on above:Performed By: #### CMP #### [facility] ([address] [place] [address] VIRCO2 [Moles/Vol]25 mmol/TPpvygp31-39GweXumtjcOhioHealth Grove City Methodist HospitalComment on above:Performed By: #### CMP #### [facility] ([address] [place] [address] VIRCreatinine [Mass/Vol]0.52 mg/dLNormal0.40-1.00ProBaylor Scott And White Medical Center – FriscoComment on above:Result Comment: METHOD TRACEABLE TO IDMS STANDARDPerformed By: #### CMP #### [facility] ([address] [place] [address] VIREGFR (CKD-EPI) NON-RACE DEPENDENT>^90Normal>=60ProBaylor Scott And White Medical Center – FriscoComment on above:Result Comment: eGFR not reported due to non- numeric value for Creatinine. Reported eGFR is based on the CKD-EPI 2020 equation that does not use a race coefficient.Performed By: #### CMP #### [facility] ([address] [place] [address] VIRGlucose [Mass/Vol]125 mg/bQOejh12-26JmlCrktdlBaylor Scott And White Medical Center – FriscoComment on above:Performed By: #### CMP #### [facility] ([address] [place] [address] VIRPotassium [Moles/Vol]3.3 mmol/LLow3.5-5.0ProBaylor Scott And White Medical Center – FriscoComment on above:Performed By: #### CMP #### [facility] ([address] [place] [address] VIRProtein [Mass/Vol]7.4 g/dLNormal6.0-8.0ProBaylor Scott And White Medical Center – FriscoComment on above:Performed By: #### CMP #### [facility] ([address] [place] [address] VIRSodium [Moles/Vol]139 mmol/EUkolsx445-395CqxRgyjhf [place] HospitalComment on above:Performed By: #### CMP #### [facility] ([address] [place] [address] VIRUrea nitrogen [Mass/Vol]23 mg/dLNormal5-27ProBaylor Scott And White Medical Center – FriscoComment on above:Performed By: #### CMP #### [facility] ([address] [place] [address] VIRCT ABDOMEN AND PELVIS W CONTon 07-98-4082QQ ABDOMEN AND PELVIS W CONTCT ABDOMEN AND PELVIS W CONT CLINICAL INFORMATION: right sided lower abd pain with N/V, possible subjective fevers, has had appenedectomy hysterectomyand cholecystectomy TECHNIQUE: CT ABDOMEN AND PELVIS W [...] Justin De Luna MD on 01/17/2025 11:39 AMNormalProBaylor Scott And White Medical Center – FriscoLACTATE W/ REFLEXon 45-46-4089ADGTSUW W/REFLEX1.2 mmol/LNormal0.4-2.0 [facility]ina HospitalComment on above:Order Comment: Result did not trigger repeat Lactate, re-order if needed.Performed By: #### LACTS #### [address] [address] VIRLIPASEon 63-33-0817Bsifwa [Catalytic activity/Vol]20 U/L Bmoetl26-60KjiUpyiuaMedina HospitalComment on above:Performed By: #### LIPA #### [address] [address] VIRMAGNESIUMon 19-06-6648Jxkldzaen [Mass/Vol]2.2 mg/dLNormal 1.8-2.6[facility]ina HospitalComment on above:Performed By: #### MG #### [address] [address] VIRPOTASSIUMon 12-31-1407Thjsitmgr [Moles/Vol]3.3 mmol/LLow 3.5-5.0Medina HospitalComment on above:Performed By: #### K ####[facility] ([facility])[address] [place] [address].[place], [place] [address] VIRPROCALCITONINon 93-79-0465GRGXXSHLFUNYX0.81 ng/mLHigh<0.05[facility] on above:Order Comment: <0.50 ng/mL - Low risk of severe sepsis and/or septic shock.<2.00 ng/mL - Recommend retesting within 6-24 hours.>2.00 ng/mL - High risk of sepsis and/or septic shock.Performed By: #### PCAL ####[facility] ([facility])[address] [place] [address] VIRSARS/FLU A+B/RSV BY NAAT/MOLECULAR (M4RT COLLECTION TUBE)on 01-17-2025 SARS/FLU A+B/RSV BY NAAT/MOLECULAR (M4RT COLLECTION TUBE)FLU A PCR Negative FLU B PCR Negative RSV BY PCR Negative SARS COV 2 BY PCR Not DetectedNormalNot DetectedProConnally Memorial Medical Center on above:Order Comment: The Xpert Xpress SARS-CoV-2/Flu/RSV Plus test is [...] operators who are performing tests using either [employer] or ybuy and is limited to laboratories that meet [...] by this test are generally detectable in upperrespiratory samples during the acute phase of infection. [...] preclude SARS-CoV-2, influenza A, influenza B and RSVinfection and should not be used as the sole basis for treatment or other patient management decisions. Negative results must be combined with clinical observations, patient history and epidemiological information. An Invalid result may occur with specimen-associated inhibition unable to be resolved with specimen repeat.Fact Sheet for Healthcare Providers:https://www.fda.gov/media/666017/downloadFact Sheet for Patients:https://www.fda.gov/media/077892/downloadPerformed By: #### COVFLR ####[address] [address] VIRTROP I, HIGH SENSITIVITY 1 HOURon 86-41-3514PFBTNQPL I, HIGH SENSITIVITY9 ng/LNormal<16[facility]ina HospitalComment on above:Performed By: #### TNIHS1 ####[address] [address] VIRTROPONIN I, HIGH SENSITIVITY 0 HOURon 01-17-2025 TROPONIN I, HIGH SENSITIVITY7 ng/LNormal<16[facility] HospitalCommclaren [place]land on above:Performed By: #### TNIHS0 ####[address] [address] VIRXR CHEST 1 VWon 89-88-3847UB CHEST 1 VWXR CHEST 1 VW Single view chest History:flu like symptoms since Friday Difficulty breathing, shortness of breath Comparison: 11/13/2020 Findings: Single portable view of the chest. Right upper lobe opacity compatible with pneumonia. No large effusion or pneumothorax. Cardiomediastinal silhouette is stable. Impression: Right upper lobe pneumonia. Finalized by Cordell Stone MD on 01/17/2025 10:50 AMNormalProBaylor Scott And White Medical Center – FriscoXR SPINE CERVICAL 3 VWS OR LESSon 49-02-6044DW SPINE CERVICAL 3 VWS OR LESSXR SPINE CERVICAL 3 VWS OR LESS EXAM: XR SPINE CERVICAL 3 VWS OR LESS CLINICAL INDICATIONS: Neck pain FINDINGS/IMPRESSION: Vertebral body heights, alignment is maintained. No significant intervertebral disc space narrowing. Mild multilevel facet arthropathy. Diffuse bone demineralization for age. Spinal canal or neuroforaminal narrowing is better assessed on MRI if clinically warranted. Finalized by Panda Alvarenga on 01/01/2025 11:12 [facility] ColumbusXR SP[facility] THORACIC 3 VWSon 48-86-8108FD SPINE THORACIC 3 VWSXR SPINE THORACIC 3 VWS XR SPINE THORACIC 3 VWS Clinical history:Mid back pain on left side Comparison: None. Findings: Exaggerated thoracic kyphosis with multilevel degenerative disc disease. No vertebral body height loss. Impression: Multilevel degenerative disc disease without evidence of acute osseous abnormality. Finalized by Cordell Stone MD on 01/01/2025 11:08 [facility] Medical CenterUrine Cultureon 82-28-3025Lricaoro identified Cx Nom (U)>100,000 colonies/ml mixed bacterial skin contaminants 2 Days PERFORMED BY: [place] [address] PATHOLOGIST INTERIOR DECORATOR PAPERHANGING VELASQUEZ LEONG M.D.[facility] Physician GroupComment on above: Performed By: #### CUU #### [place] [address] USAMAMM SCREENING BILATERAL W CADon 30-51-0162SXCI SCREENING BILATERAL W CADMAMM SCREENING BILATERAL W CAD YANI BECKI OPAL 1960 [id number] EXAM: MAMM SCREENING BILATERAL W CAD, 12/02/2024 [...] family medical history was used calculate their Tyrer-zi lifetime risk of malignancy. Scores less than 20% are not considered high risk per ACR guidelines and patient should continue with the above recommendation. Finalized by Niru Palmer MD on 12/03/2024 9:32 AM 1 b MAMM 1 YRProMedica Flower Hospitalurgical Pathologyon 21-11-2301Xazjjdfi PathologyOhioHealth O'Bleness HospitalComment on above:Result Comment: [facility] [address] [place] [address] Surgical Pathology Consultation Patient Name:YANI JOSEPH:1960 (Age: 64)Gender:FTaken:10/20/2024Reported:10/24/2024Physician(s):Mariusz Plata MD ([phone])Copy To: Rec. #:[id number]: #[id number] Final Pathologic Diagnosis Rectal polyp - polypectomy: - Hyperplastic polyp Report Electronically Signed Out jaimes/10/24/2024Howard Bates MD Interpretation [place] [address], License number: [id number]. Clinical History Personal history of adenomatous and serrated colon polyps Z86.0101. Gross Description Received in formalin labeled OPAL, rectum is a pale-wiggins delicate soft tissue bit, is a pale-wiggins delicate soft tissue bit, 0.3 cm in greatest dimension. The specimen is filtered and submitted in single cassette. (1,ns,O90-1907, m8) TB tgb/10/21/2024GR Specimen(s) Received Rectal polyp Fee Codes(s): 1; 31005Bubunuf Letter FTon 63-03-5306Lnadhjv Letter FTPatient Letter [facility] September 13, 2024 YANI JOSEPH [address] [place] [address] : 1960 Dear Yani, This is a reminder that you are due for an appointment with [facility]. Please contact our office at [phone] to schedule an appointment at your earliest convenience. Thank you, [facility] CenterNormalTrinity Health System Twin City Medical Centerurgical pathology studyon 10-79-5848Xifavclb pathology studyPathology report.total SEE COMMENT Surgical Pathology Case: [id number] Authorizing Provider: Toni Bansal MD Collected: 06/17/2024 0917 Ordering Location: [facility] Received: 06/18/2024 0346 OR Pathologist: Emily Mcnulty [...] to 3.0 x 1.3 x 0.4 cm. Radiosonde Operator sections are submitted in one cassette following [...] is submitted in formalin in one cassette. [facility]: Received in formalin, labeled with the patient's name and hospital number and bilateral sinus microdebrider , are multiple, irregular segments of light wiggins cartilage and soft tissue aggregating to 3.4 x 3.0 x 1.7 cm. Radiosonde Operator sections are submitted in 2 cassettes. [facility]ITALNoOur Lady of Mercy Hospital - AndersonComment on above:Order Comment: Pre-op diagnosis: Deviated nasal septum [J34.2] Chronic ethmoidal sinusitis [J32.2]Basic metabolic 2000 panelon 07-73-1196Rkwwi gap [Moles/Vol]12 mmol/L10 - 20 mmol/[facility]Med[facility] HospitalCalcium [Mass/Vol]8.7 mg/dL8.6 - 10.3 mg/dLUnPremier Health Atrium Medical CenterChloride [Moles/Vol]107 mmol/L98 - 107 mmol/[facility] [place] HospitalCO2 [Moles/Vol]28 mmol/L21 - 32 mmol/[facility] [place] HospitalCreatinine [Mass/Vol]0.59 mg/dL0.50 - 1.05 mg/dLUnPremier Health Atrium Medical CentereG- Licking Memorial HospitalComment on above:Calculations of estimated GFR are performed using the 2020 CKD-EPI Study Refit equation without therace variable for the IDMS-Traceable creatinine methods. https://jasn.asnjournals.org/content/early//ASN.9742505496 Glucose [Mass/Vol]106 mg/gAWoak25 - 99 mg/dLUnPremier Health Atrium Medical Center Interpretation and review of laboratory resultsAbnoMercy Health St. Joseph Warren HospitalPotassium [Moles/Vol]4.7 mmol/L3.5 - 5.3 mmol/[facility] [place] HospitalSodium [Moles/Vol]142 mmol/L136 - 145 mmol/[facility] [place] HospitalUrea nitrogen [Mass/Vol]11 mg/dL6 - 23 mg/dLUnPremier Health Atrium Medical CenterUnPremier Health Atrium Medical CenterAnion gap [Moles/Vol]12 mmol/LNormal 10-20UnKindred Hospital DaytonComment on above:Performed By: #### 87481-0 #### SOFÍA SANTOS ([id number]) [facility] ([facility]) [address] [place] [address] 89[address]Rktagai [Mass/Vol]8.7 mg/dLNormal8.6-10.3Licking Memorial HospitalComment on above:Performed By: #### 48258-8 #### SOFÍA SANTOS ([id number]) [facility] ([facility]) [address] [place] [address] 70603Cmuanrym [Moles/Vol]107 mmol/IXuqiab35-386JmjaqdyexlLicking Memorial HospitalComment on above:Performed By: #### 02004-9 #### SOFÍA SANTOS ([id number]) [facility] ([facility]) [address] [place] [address] 410[address]XA5 [Moles/Vol]28 mmol/LCjzcou78-83IvwmlbpkhlKindred Hospital DaytonComment on above:Performed By: #### 99679-2 #### SOFÍA SANTOS ([id number]) [facility] ([facility]) [address] [place] [address]25[address]Hjlieeteqm [Mass/Vol]0.59 mg/dLNormal0.50-1.05Licking Memorial HospitalComment on above:Performed By: #### 99493-8 #### SOFÍA SANTOS ([id number]) [facility] ([facility]) [address] [place] [address] 68[address]RUO/1.73 sq M.predicted MDRD (S/P/Bld) [Vol rate/Area] mL/min/{1.73_m2}Normal>60UnKindred Hospital DaytonComment on above:Result Comment: Calculations of estimated GFR are performed using the 2020 CKD-EPI Study Refit equation without the race variable for the IDMS-Traceable creatinine methods. https://jasn.asnjournals.org/content//ASN.7653612048Sszwfsqck By: #### 83509-4 #### SOFÍA SANTOS ([id number]) [facility] ([facility]) [address] [place] [address] 16242Edqjkxm [Mass/Vol]106 mg/kIMwwp28-51ZvdlolzwbrLicking Memorial HospitalComment on above:Performed By: #### 28015-3 #### SOFÍA SANTOS ([id number]) [facility] ([facility]) [address] [place] [address]Xwvogyano [Moles/Vol]4.7 mmol/LNormal3.5-5.3L[facility] Memorial HospitalComment on above:Performed By: #### 09845-0 #### SOFÍA SANTOS ([id number]) [facility] ([facility]) [address] [place] [address] 10194Bqkfyx [Moles/Vol]142 mmol/JZadinq431-703BjtbpdxjugKindred Hospital DaytonComment on above:Performed By: #### 79593-7 #### SOFÍA SANTOS ([id number]) [facility] ([facility]) [address] [place] [address] 84451Ldlm nitrogen [Mass/Vol]11 mg/dLNormal6-23UnKindred Hospital DaytonComment on above:Performed By: #### 34485-0 #### SOFÍA SANTOS ([id number]) [facility] ([facility]) [address] [place] [address]EJH panel Auto (Bld)on 29-50-3617Rcaapgwfklu distribution width (RBC) [Ratio]13.0 %11.5 - 14.5 %[facility] Soin Medical CenterHematocrit (Bld) [Volume fraction]44.2 %36.0 - 46.0 %[facility] Hemoglobin (Bld) [Mass/Vol]14.1 g/dL12.0 - 16.0 g/dLUnPremier Health Atrium Medical CenterInterpretation and review of laboratory resultsAbnormalUniTriHealth Good [facility] (RBC) [Entitic mass]29.4 pg26.0 - 34.0 pgUnut health east texas carthage hospital Hospitals of ClevelandMCHC (RBC) [Mass/Vol]31.9 g/dLLow32.0 - 36.0 g/dL [facility] Medical CenterMCV (RBC) [Entitic vol]92 fL80 - 100 fL [facility] So[facility] Medical CenterNucleated RBC/100 WBC (Bld) [Ratio]0.0 % [facility] So[facility] Medical CenterPlatelets (Bld) [#/Vol]328 10*3/Doctors HospitalRBC (Bld) [#/Vol]4.79 10*6/Doctors HospitalWBC (Bld) [#/Vol]6.9 10*3/Doctors HospitalUnPremier Health Atrium Medical CenterErythrocyte distribution width (RBC) [Ratio]13.0 %Normal 11.5-14.5Licking Memorial HospitalComment on above:Performed By: #### 23009-7 #### CAITLYNIBELADIO SANTOS ([id number]) [facility] ([facility]) [address] [place] [address]97[address]Sjrvhftbmt (Bld) [Volume fraction]44.2 %Kxippl33.0-46.0 [facility] HospitalComment on above:Performed By: #### 58667-4 #### SOFÍA SANTOS ([id number]) [facility] ([facility]) [address] [place] [address] 95[address]Bvedlfyhjt (Bld) [Mass/Vol]14.1 g/iBCytddg16.0-16.0UnKindred Hospital DaytonComment on above:Performed By: #### 52985-5 #### CAITLYNIBELADIO SANTOS ([id number]) [facility] ([facility]) [address] [place] [address] 88186LKU (RBC) [Entitic mass]29.4 hmBqfpfu89.0-34.0UnKindred Hospital DaytonComment on above:Performed By: #### 74506-4 #### CAITLYNIBELADIO SANTOS ([id number]) [facility] ([facility]) [address] [place] [address]58[address]QEDV (RBC) [Mass/Vol]31.9 g/dLLow32.0-36.0L[facility] Memorial HospitalComment on above:Performed By: #### 68559-8 #### SOFÍA SANTOS ([id number]) [facility] ([facility]) [address] [place] [address] 33940ZTL (RBC) [Entitic vol]92 nNSzcgew93-818HzkozbjqtpKindred Hospital DaytonComment on above:Performed By: #### 85547-8 #### CAITLYNIBELADIO SANTOS ([id number]) [facility] ([facility]) [address] [place] [address] 547[address]Rlftnvlfb RBC/100 WBC (Bld) [Ratio]0.0 /100 WBCsNormal0.0-0.0 [facility] HospitalComment on above:Performed By: #### 61765-2 #### SOFÍA SANTOS ([id number]) [facility] ([facility]) [address] [place] [address]Uvgcmbjnc (Bld) [#/Vol]328 x10*3/kBRskmmq876-186SpgjcqfropKindred Hospital DaytonComment on above:Performed By: #### 05890-7 #### SOFÍA SANTOS ([id number]) [facility] ([facility]) [address] [place] [address]FPI (Bld) [#/Vol]4.79 x10*6/uLNormal4.00-5.20UnKindred Hospital DaytonComment on above:Performed By: #### 01295-6 #### SOFÍA SANTOS ([id number]) [facility] ([facility]) [address] [place] [address] 77[address]DXZ (Bld) [#/Vol]6.9 x10*3/uLNormal4.4-11.3L[facility] Memorial HospitalComment on above:Performed By: #### 85242-4 #### SOFÍA SANTOS ([id number]) [facility] ([facility]) [address] [place], [place] [address]AEOKIZUTINMDW METABOLIC PANELon 82-95-5620Qqzthwo [Mass/Vol]4.2 g/dLNormal3.2-5.3ProMedica Perrin HospitalComment on above:Performed By: #### LETY, 78929-9 #### [facility] ([id number]) [address], [address] [place], [place] [address]ZRV [Catalytic activity/Vol]97 U/OCjbreq90-844OfeKybslr [place] HospitalComment on above:Performed By: #### LETY, 22938-9 #### [facility] ([id number]) [address], [address] [place], [place] [address]PCD [Catalytic activity/Vol]29 U/LNormal0-31ProMedica [facility]errin HospitalComment on above:Performed By: #### LETY, 10173-8 #### [facility] ([id number]) [address], [address] [place], [place] [address]Nywjb gap [Moles/Vol]10 mmol/LNormal5-15Pro[facility]ica [place] HospitalComment on above:Performed By: #### LETY, 58260-4 #### [facility] ([id number]) [address], [address] [place], [place] [address]ZSK [Catalytic activity/Vol]21 U/LNormal0-41ProMedica [place] HospitalComment on above:Performed By: #### LETY, 71621-7 #### [facility] ([id number]) [address], [address] [place], [place] [address]Ggosjwgee [Mass/Vol]0.3 mg/dLNormal0.3-1.2ProMedica [facility]err[facility] HospitalComment on above:Performed By: #### LETY, 89512-1 #### [facility] ([id number]) [address] [place], [place] [address]Pgrdpyf [Mass/Vol]10.9 mg/dLHigh8.5-10.5PWilson [address] HospitalComment on above:Performed By: #### LETY, 91481-3 #### [facility] ([id number]) [address] [place], [place] [address]Elkscpmy [Moles/Vol]102 mmol/SBknvmw68-906HbsRnmgkf Toledo HospitalComment on above:Performed By: #### LETY, 42176-6 #### [facility] ([id number]) [address] [place], [place] [address]ZD1 [Moles/Vol]29 mmol/PMsbcug36-99WjzKigcjuWilson [address] Hospital Comment on above:Performed By: #### LETY, 10620-2 #### [facility] ([id number]) [address] [place], [place] [address]Lqqikoybbl [Mass/Vol]0.71 mg/dLNormal0.40-1.00ProCrystal Clinic Orthopedic CenterComment on above:Result Comment: METHOD TRACEABLE TO IDMS STANDARD Performed By: #### LETY, 08739-3 #### [facility] ([id number]) [address] [address] [place], [place] [address]mVPG (CKD-EPI) NON-RACE DEPENDENT>90Normal>59ProCrystal Clinic Orthopedic CenterComment on above:Result Comment: Reported eGFR is based on the CKD-EPI 2020 equation that does not use a race coefficient.Performed By: #### LETY, 85806-3 #### [facility] ([id number]) [address] [place], [place] [address]Mpqunwz [Mass/Vol]103 mg/kRFwnk28-61TsjBuzktpCrystal Clinic Orthopedic Center Comment on above:Performed By: #### LETY, 76268-8 #### [facility] ([id number]) [address], [address] [place], [place] [address]Yurckrywr [Moles/Vol]3.7 mmol/LNormal3.5-5.0ProCrystal Clinic Orthopedic CenterComment on above:Performed By: #### LETY, 61438-5 #### [facility] ([id number]) [address], [address] [place], [place] [address]Vwbeqkm [Mass/Vol]7.2 g/dLNormal6.0-8.0ProCrystal Clinic Orthopedic Center Comment on above:Performed By: #### LETY, 11187-7 #### [facility] ([id number]) [address], [address] [place], [place] [address]Jfelxq [Moles/Vol]141 mmol/ABvarct546-756LxlEmoqzk Toledo HospitalComment on above:Performed By: #### LETY, 66694-0 #### [facility] ([id number]) [address], [address] [place], [place] [address]Mqov nitrogen [Mass/Vol]12 mg/dLNormal5-27ProCrystal Clinic Orthopedic CenterComment on above:Performed By: #### LETY, 44939-7 #### [facility] ([id number]) [address], [address] [place], [place] [address]Eaimtffkunyry metabolic panelon [id number] [Mass/Vol]4.2 g/dL3.2 - 5.3 g/dLProMedica Health SystemALP [Catalytic activity/Vol]97 U/L39 - 130 U/LProMedica Health SystemALT No additional P-5'-P [Catalytic activity/Vol] 29 U/L0 - 31 U/LProMedica Health SystemAnion gap [Moles/Vol]10 mmol/L5 - 15 mmol/LProMedica Health SystemAST [Catalytic activity/Vol]21 U/L0 - 41 U/L [facility] Health SystemBilirubin [Mass/Vol]0.3 mg/dL0.3 - 1.2 mg/dLProMedica Health SystemCalcium [Mass/Vol]10.9 mg/dLHigh8.5 - 10.5 mg/dLProMedica Health SystemChloride [Moles/Vol]102 mmol/L98 - 109 mmol/[facility] ThinkVidya SystemCO2 [Moles/Vol]29 mmol/L22 - 32 mmol/[facility] HospitalCreatinine [Mass/Vol] 0.71 mg/dL0.40 - 1.00 mg/dLKettering Health Greene MemorialComment on above:METHOD TRACEABLE TO [facility] STANDARDeGFR (CKD-EPI)non-race dependent- [facility] CenterComment on above: Reported eGFR is based on the CKD-EPI 2020 equation that does not use a race coefficient. Glucose [Mass/Vol]103 mg/qHDqxb51 - 99 mg/dLKettering Health Greene MemorialPotassium [Moles/Vol]3.7 mmol/L3.5 - 5.0 mmol/[facility] SystemProtein [Mass/Vol] 7.2 g/dL6.0 - 8.0 g/dLFirstHealth Montgomery Memorial Hospitalodium [Moles/Vol]141 mmol/L134 - 146 mmol/[facility] Memorial HospitalUrea nitrogen [Mass/Vol]12 mg/dL5 - 27 mg/dL [facility] MemorialLipid 1996 panelon 27-20-0243Jpzderdatwg [Mass/Vol]210 mg/sVMxiq184 - 200 mg/dLKettering Health Greene MemorialCholesterol in HDL [Mass/Vol]68 mg/dL39 - PINF mg/dLKettering Health Greene MemorialComment on above: HDL <40 mg/dL - High Risk HDL > or = 40mg/dL- Desirable HDL >60 mg/dL - Negative Risk Cholesterol in LDL [Mass/Vol]118 mg/dLNINF - 130 mg/dLKettering Health Greene Memorial Comment on above: LDL <100 mg/dL - Desirable LDL >160 mg/dL - High Risk Cholesterol in VLDL [Mass/Vol]24 mg/dL0 - 30 mg/dLKettering Health Greene Memorial Cholesterol.total/Cholesterol in HDL [Mass ratio]3.1 {ratio}1.0 - 5.0ProTrinity Health System Twin City Medical CenterTriglyceride [Mass/Vol]118 mg/dL27 - 150 mg/dLProTrinity Health System Twin City Medical CenterCholesterol [Mass/Vol]210 mg/qLZhmz858-718YxmCwumrn Toledo HospitalComment on above:Performed By: ###Dre DAVIDSON, 08577-1 #### [facility] ([id number]) [address], [address] [place], [place] [address]Qxkpudjhzpt in HDL [Mass/Vol]68 mg/dLNormal>39ProCrystal Clinic Orthopedic CenterComment on above:Result Comment: HDL <40 mg/dL - High Risk HDL > or = 40mg/dL- Desirable HDL >60 mg/dL - Negative Risk Performed By: ###Dre DAVIDSON, 57542-3 #### [facility] ([id number]) [address], [address] [place], [place] [address]Ktaseyfgvbk in LDL [Mass/Vol]118 mg/dLNormal<130ProCrystal Clinic Orthopedic CenterComment on above:Result Comment: LDL <100 mg/dL - Desirable LDL >160 mg/dL - High Risk Performed By: ###Dre DAVIDSON, 80067-8 #### [facility] ([id number]) [address], [address] [place], [place] [address]Qzzfokiystz in VLDL [Mass/Vol]24 mg/dLNormal0-30ProCrystal Clinic Orthopedic CenterComment on above:Performed By: ###Dre DAVIDSON, 45826-8 #### [facility] ([id number]) [address], [address] [place], [place] [address]ELXCZJDGBIL:HDL3.0Qkanvv3.0-5.0ProCrystal Clinic Orthopedic CenterComment on above:Performed By: #### [facility], 19169-4 #### [facility] ([id number]) [address], [address] [place], [place] [address]Lldyuatipkkj [Mass/Vol]118 mg/hPCffhnu89-210HlxPojslv [place]edo HospitalComment on above:Performed By: #### [facility], 66627-2 #### [facility] ([id number]) [address], [address] [place], [place] [address]Pt Panel Informationon 52-54-7814Kgwswtplvtikej and review of laboratory resultsAbnoJeanes HospitalCT MAXILLOFACIAL W/O CONTRASTon 02-12-2024 Exam Date/Time: 02/10/2024 09:43 EDT Reason for [...] Viktor Crabtree DO Transcribed by: SOLIS Technologist: [facility]OSPITALRadiology, Radiologist, - 02/12/2024 Exam Date/Time: 02/10/2024 09:43 [...] Crabtree DO Transcribed by: SOLIS Technologist: CHANA NOMS HealthcareCT MAXILLOFACIAL W/O CONTRASTOrdered By: Radiologist Radiology on 06-16-9965LZGI APSX Work Phone: cHEMISTRYOrdered By: [employer] SYSTEM on 02-10-2024 Albumin [Mass/Vol]4.1 g/dLNormal3.3 - 5.0 gm/dLRemisol ChemAlbumin/Globulin [Mass ratio]1.2 {ratio}Normal1.1 - 2.2Remisol ChemALP [Catalytic activity/Vol]77 [iU]/sVboqhw06 - 98 Int._Unit/LRemisol ChemALT No additional P-5'-P [Catalytic activity/Vol]32 [iU]/dNormal6 - 46 Int._Unit/LRemisol ChemAST [Catalytic activity/Vol]18 [iU]/dNormal5 - 43 Int._Unit/LRemisol ChemBilirubin [Mass/Vol] 0.5 mg/dLNormal0.0 - 1.1 mg/dLRemisol ChemBilirubin.direct [Mass/Vol]0.0 mg/dL Normal0.0 - 0.4 mg/dLRemisol ChemBilirubin.indirect [Mass or moles/Vol]0.5 mg/dL Normal0.1 - 0.9 mg/dLRemisol ChemFree T4 [Mass/Vol]1.05 ng/dLNormal0.58 - 1.64 ng/dLRemisol ChemGlobulin (S) [Mass/Vol]3.3 g/dLNormal1.4 - 4.0 gm/dLRemisol ChemProtein [Mass/Vol]7.4 g/dLNormal6.0 - 7.8 gm/dLRemisol ChemTSH Qn1.61 m[IU]/LNormal0.34 - 5.60 mcIU/mLRemisol ChemCT MAXILLOFACIAL W/O CONTRASTon 25-33-7756Tndyxakvp Study observation (narrative)NOMS HealthcareFree T4on 93-85-6231Cgyt T4 [Mass/Vol]1.05 ng/dLNormal0.58-1.64[facility] Comment on above:Performed By: #### [id number] #### [facility] [address], [place] [address]Ytv Func Panelon 38-37-5354Kpgoull [Mass/Vol]4.1 g/dLNormal 3.3-5.0[facility] Board[facility] HospitalComment on above:Performed By: #### [id number] #### [facility] [address] [place] [address]Hckdajb/Globulin (S) [Mass conc ratio]1.4Yqkeye5.1-2.2FUniversity Hospitals Geneva Medical CenterComment on above:Performed By: #### [id number] #### [facility] [address] [place] [address]GFS [Catalytic activity/Vol]77 Int._Unit/OMwclqc22-90PgikndMercy Health St. Elizabeth Boardman HospitalComment on above:Performed By: #### [id number] #### [facility] [address] [place] [address]RPN No additional P-5'-P [Catalytic activity/Vol]32 Int._Unit/L Normal6-46[facility] HospitalComment on above:Performed By: #### [id number] #### [facility] [address] [place] [address] 22261GJR [Catalytic activity/Vol]18 Int._Unit/LNormal5-43[facility] HospitalComment on above:Performed By: #### [id number] #### [facility] [address], [place] [address]Kuxasxykc [Mass/Vol]0.5 mg/dLNormal0.0-1.1FUniversity Hospitals Geneva Medical CenterComment on above:Performed By: #### [id number] #### [facility] [address], [place] [address]Ykqxyzlrj.direct [Mass/Vol]0.0 mg/dLNormal0.0-0.4FUniversity Hospitals Geneva Medical CenterComment on above:Performed By: #### [id number] #### [facility] [address] [place] [address]Kzsukgtcj.indirect [Mass or moles/Vol]0.5 mg/dLNormal0.1-0.[address] [facility] HospitalComment on above:Performed By: #### [id number] #### [facility] [address], [place] [address]Iddgresu (S) [Mass/Vol]3.3 g/dLNormal1.4-4.0[facility] HospitalComment on above:Performed By: #### [id number] #### [facility] [address], [place] [address]Nmluyxr [Mass/Vol]7.4 g/dLNormal6.0-7.8[facility] HospitalComment on above:Performed By: #### [id number] #### [facility] [address] [place] [address]NWYun 44-83-7949WON Qn1.61 m[IU]/LNormal0.34-5.60[facility] HospitalComment on above:Performed By: #### [id number] #### [facility] [address], [place] [address]ILXFRJMSWYjtpruz By: SYSTEM SYSTEM on 56-97-6534Lktbdbu [Mass/Vol]3.9 g/dLNormal3.3 - 5.0 gm/dLRemisol ChemAnion gap [Moles/Vol]11 mmol/LNormal6 - 16 mEq/LRemisol ChemCalcium [Mass/Vol]8.8 mg/dLLow8.9 - 11.1 mg/dLRemisol ChemChloride [Moles/Vol]105 mmol/RRpzgun528 - 111 mmol/LRemisol ChemCO2 [Moles/Vol]28 mmol/KUqkevr47 - 31 mmol/LRemisol ChemCreatinine [Mass/Vol]0.6 mg/dLNormal0.5 - 1.3 mg/dLRemisol QfsbsVVL130 mL/min/1.73 k0Yjizlz >=59mL/min/1.73 l5Pxvxgch ChemGlucose [Mass/Vol]126 mg/vSWrxtoj45 - 199 mg/dL Remisol ChemPhosphate [Mass/Vol]3.1 mg/dLNormal1.9 - 4.6 mg/dLRemisol Chem Potassium [Moles/Vol]4.1 mmol/LNormal3.5 - 5.3 mmol/LRemisol ChemSodium [Moles/Vol]140 mmol/FBwfwma008 - 145 mmol/LRemisol ChemUrea nitrogen [Mass/Vol] 10 mg/dLNormal5 - 21 mg/dLRemisol ChemUrea nitrogen/Creatinine [Mass ratio]17 mg/nqOtesli10 - 20Remisol ChemProtein/Creatinine (U) [Ratio]15.40 mg/gm CrNormal 0.00 - 200.00 mg/gm CrRemisol ChemU Hhnvhfyvxu543.0 mg/dLInvalid Interpretation CodeRemisol ChemUr Total Qwpiwrb00.5 mg/dLInvalid Interpretation CodeRemisol ChemURINALYSISOrdered By: Skyla Case on 60-82-2803Pliwfffno Ql (U)Negative (11/18/23 2:51 PM)NormalNegativeTUL[facility] [place] UA Auto SSClarity (U)Clear (11/18/23 2:51 PM)NormalClearFHARPER COUNTY [facility] [place] U[facility] Auto SSColor (U)Yellow (11/18/23 2:51 PM)NormalYellowTULSA CENTER FOR BEHAVIOR[facility] [place] UA Auto SSCrystals LM Ql (Urine sed)Present (11/18/23 2:51 PM)NormalTULSA CENTER FOR BEHAVIORAL [facility] [place] UA Auto SSEpithelial cells.squamous LM.HPF (Urine sed) [#/Area]0-2 /HPFNormal0-2/HPFTULSA CENTER FOR BEHAVIORAL [facility]ALTH [facility] [place] UA Auto SSGlucose Test strip (U) [Mass/Vol]Negative (11/18/23 2:51 PM)NormalNegativeTULSA CENTER FOR BE[facility]IOR[facility] [place] UA Auto SSHemoglobin Ql (U)Negative (11/18/23 2:51 PM)NormalNegativeTULSA C[facility] [place] UA Auto SSKetones (U) [Mass/Vol]Negative (11/18/23 2:51 PM)NormalNegativeTULSA CENTER FOR BE[facility] [place] UA Auto SSLithium.plasma/[place].RBC (Bld) [Mass ratio]0-3 /HPFNormal0-3/HPFTULSA CENTER FOR BEHAVIORAL [facility] [place] UA Auto SSMucus Ql (Urine sed)Trace (11/18/23 2:51 PM)NormalTULSA CENTER FOR BEHAVIOR[facility] [place] UA Auto SSNitrite Ql (U)Negative (11/18/23 2:51 PM)NormalNegativeTULSA CENTER FOR [facility] [place] UA Auto SSpH (U)7.0 *NA* (11/18/23 2:51 PM)Invalid Interpretation Code5.0 - 9.0[facility] [place]A Auto SSProtein (U) [Mass/Vol]Negative (11/18/23 2:51 PM)NormalNegativeTULSA C[facility] [place] UA Auto SSSpecific gravity (U) [Rel density] 1.020 *NA* (11/18/23 2:51 PM)Invalid Interpretation Code1.005 - 1.030[facility] [place] [facility]A Auto SSUA Spec DescClean Catch (11/18/23 2:51 PM)NormalTULSA CENTER FOR BEHAVIORAL [facility]ALTH [facility] [place] UA Auto SSUrobilinogen Qn (U)1.5476499 {Joni'U}/dL Normal0.0 - 1.0 EU/dLTULSA CENTER FOR BEHAVIORAL [facility]ALTH [facility] [place] UA Auto SSWBC Auto Ql (U)Negative (11/18/23 2:51 PM)NormalNegativeTULSA C[facility] [place] UA Auto SSWBC LM.HPF (Urine sed) [#/Area]0-5 /HPFNormal0-5/HPFTULSA CENTER FOR BEHAVIORAL [facility]ALTH [facility] [place] UA Auto SSCOVID Quick Testingon 69-29-9326GkclatGxbmxlbo [facility] iNEWiT Other t4on 16-06-7679Y4 [Mass/Vol]10.10 ug/dLNormal 4.80-13.90The Access Hospital DaytonComment on above:Performed By: #### NA, URIC, BUN, CA, CL, CO2, CREA, K #### [facility] [address] [place] [address] Dr. Florence Zhou 57-54-1115ITW3.776 uIU/mLNormal0.358-3.740The Access Hospital DaytonComment on above:Performed By: #### NA, URIC, BUN, CA, CL, CO2, CREA, K #### [facility] [address] [place] [address] Dr. Florence Monterroso/FLU RT-PCRon 06-66-6189CZJU-CoV-2 (COVID-19) RNA KAMRYN+probe Ql (Unsp spec)NegativeNortButler Memorial Hospital Professional [employer] Other COVID/FLU RT-PCRNegativeWAKU WAKU ? Other Quick Strepon 11-20-2022S. pyogenes Org specific cx Ql (Throat)NegativeWAKU WAKU ? Other Qulcd Locaid Other CHEMISTRYOrdered By: SYSTEM SYSTEM on 11-19-2022 Albumin [Mass/Vol]3.8 g/dLNormal3.3 - 5.0 gm/dLFTMC RemisolAlbumin/Globulin [Mass ratio]1.1 {ratio}Normal1.1 - 2.2FT[facility] RemisolALP [Catalytic activity/Vol] 109 [iU]/dHigh21 - 98 Int._Unit/LFTMC RemisolALT No additional P-5'-P [Catalytic activity/Vol]30 [iU]/dNormal6 - 46 Int._Unit/LFTMC RemisolAnion gap [Moles/Vol] 12 mmol/LNormal6 - 16 mEq/LFTMC RemisolAST [Catalytic activity/Vol]34 [iU]/d Normal5 - 43 Int._Unit/LFTMC RemisolBilirubin [Mass/Vol]0.7 mg/dLNormal0.0 - 1.1 mg/dLFTMC RemisolCalcium [Mass/Vol]8.8 mg/dLLow8.9 - 11.1 mg/dLFTMC Remisol Chloride [Moles/Vol]102 mmol/ZJlbxvn269 - 111 mmol/LFTMC RemisolCO2 [Moles/Vol] 26 mmol/XYrjkge50 - 31 mmol/LFTMC RemisolCreatinine [Mass/Vol]0.7 mg/dLNormal0.5 - 1.3 mg/dLFTMC RemisolGFR/1.73 sq M.predicted among blacks MDRD (S/P/Bld) [Vol rate/Area]mL/min/1.73 u8Ncblqh>=59mL/min/1.73 m2FTMC Chem SGFR/1.73 sq M.predicted among non-blacks MDRD (S/P/Bld) [Vol rate/Area]mL/min/1.73 l1Dtfufd >=59mL/min/1.73 m2FT Chem SGlobulin (S) [Mass/Vol]3.5 g/dLNormal1.4 - 4.0 gm/dLFTMC RemisolGlucose [Mass/Vol]114 mg/iXOnfbnw07 - 199 mg/dLFTMC Remisol Potassium [Moles/Vol]4.3 mmol/LNormal3.5 - 5.3 mmol/LFTMC RemisolProtein [Mass/Vol]7.3 g/dLNormal6.0 - 7.8 gm/dLFTMC RemisolSodium [Moles/Vol]136 mmol/L Plngue376 - 145 mmol/LFTMC RemisolUrea nitrogen [Mass/Vol]13 mg/dLNormal5 - 21 mg/dLFTMC RemisolUrea nitrogen/Creatinine [Mass ratio]19 mg/jcSwnvmf20 - 20FTMC RemisolCITRATE URINE 24HRon 14-54-3637Ejhgun Acid, U, 91xq030 mg/24 hrNormal 320-1240The [facility] Hospital DaytonComment on above:Result Comment: This test was developed and its performance characteristics determined by [facility]. It has not been cleared or approved by the Food and Drug Administration.Performed By: #### CITRATU #### [facility] [address] [place] [address] Dr. Florence BeltránCitric Acid, Oevyf430 mg/LNormalUndefinedThe [facility] Comment on above:Performed By: #### CITRATU #### [facility] [address] [place] [address] Dr. Florence BeltránMAGNESIUM 24HR URINEon 96-25-0937Ajqtrujec 24hr Urine93.5 mg/24 xsKqnouj82.0-293.0The [facility] Hospital DaytonComment on above:Result Comment: No total volume submitted. Unable to calculate 24 hour result.Performed By: #### NA, URIC, BUN, CA, CL, CO2, CREA, K #### [facility] [address] [place] [address] Dr. Yilan ChangMagnesium UR5.5 mg/dLNormalNot Estab.The [facility] on above:Performed By: #### NA, URIC, BUN, CA, CL, CO2, CREA, K #### [facility] [address] [place] [address] Dr. Florence BeltránOXALATE 24HR URINEon 51-82-1144Bjldxrdk, Urine19 mg/LNormal UndefinedThe [facility] on above:Performed By: #### OX24HR #### [facility] [address] [place] [address] Dr. Florence BeltránOxalates, Urine 24hr32 mg/24 hrCritically high4-31The [facility] on above:Performed By: #### OX24HR #### [facility] [address] [place] [address] Dr. Florence BeltránPHOSPHORUS 24HR URINEon 59-58-5287Ibaplcbxec, Urine41.7 mg/dL NormalNot Estab.The [facility] on above:Performed By: #### NA, URIC, BUN, CA, CL, CO2, CREA, K #### [facility] [address] [place] [address] Dr. Florence BeltránPhosphorus, Urine 78sc518 mg/24 ykKcmjai590-7030Exl [facility] on above:Result Comment: No total volume submitted. Unable to calculate 24 hour result.Performed By: #### NA, URIC, BUN, CA, CL, CO2, CREA, K #### [facility] [address] [place] [address] Dr. Florence BeltránURIC ACID 24 HR URINEon 44-84-2616Coia Acid, Urine40.6 mg/dL NormalNot Estab.The [facility] on above:Performed By: #### NA, URIC, BUN, CA, CL, CO2, CREA, K #### [facility] [address] [place] [address] Dr. Florence BeltránUric Acid, Urine 64mu411.2 mg/24 kuNaklsl703.7-902.1The [facility] on above:Result Comment: No total volume submitted. Unable to calculate 24 hour result.Performed By: #### NA, URIC, BUN, CA, CL, CO2, CREA, K #### [facility] [address] [place] [address] Dr. Florence Ortega INTACTon 43-27-3182RFH, Jcpygc93 pg/wWOnbfgb27-89Zno [facility] on above:Performed By: #### NA, URIC, BUN, CA, CL, CO2, CREA, K #### [facility] [address] [place] [address] Dr. Florence Ken 01-10-0395Rzca nitrogen [Mass/Vol]13.0 mg/dLNormal7.0-18.0 The [facility] on above:Performed By: #### NA, URIC, BUN, CA, CL, CO2, CREA, K #### [facility] [address] [place] [address] Dr. Florence WayneIUMon 74-93-5527Hxhrfsc [Mass/Vol]9.0 mg/dLNormal8.5-10.1The [facility] on above:Performed By: #### NA, URIC, BUN, CA, CL, CO2, CREA, K #### [facility] [address] [place] [address] Dr. Florence WayneIUM 24 HR URINEon 56-55-9988NOLE, 24 HR UR180.2 mg/24 hr Ljhvsy877.0-300.0The [facility] on above:Performed By: #### NA, URIC, BUN, CA, CL, CO2, CREA, K #### [facility] [address] [place] [address] Dr. Florence Peña ANZWANS75.6 mg/dLNormal5.1-21.0The [facility] on above:Performed By: #### NA, URIC, BUN, CA, CL, CO2, CREA, K #### [facility] [address] [place] [address] Dr. Florence Peña TOT XDY9100 ml/24 HRNormalThe [facility]orgetown Behavioral Hospitalment on above:Performed By: #### NA, URIC, BUN, CA, CL, CO2, CREA, K #### [facility] [address] [place] [address] Dr. Florence BeltránCHLORIDEon 18-46-6181Ifqrneiq [Moles/Vol]103 mmol/OQkhxkm37-309 The [facility] on above:Performed By: #### NA, URIC, BUN, CA, CL, CO2, CREA, K #### [facility] [address] [place] [address] Dr. Florence BeltránCO2on 07-38-3774LD1 [Moles/Vol]28.4 mmol/ABmwovq72.0-32.0[facility] Hospitalment on above:Performed By: #### NA, URIC, BUN, CA, CL, CO2, CREA, K #### [facility] [address] [place] [address] Dr. Florence Romo 24 HR URINEon 41-08-4775CUQH, 24 HR UR844.05 mg/24 hrNormal 800.00-1,800.00The [facility] Hospitalment on above:Performed By: #### NA, URIC, BUN, CA, CL, CO2, CREA, K #### [facility] [address] [place] [address] Dr. Florence Ugalde CREAT49.65 mg/qNUteydz58.00-300.00The [facility] Comment on above:Performed By: #### NA, URIC, BUN, CA, CL, CO2, CREA, K #### [facility] [address] [place] [address] Dr. Florence De AndaATININEon 32-82-9425Fbbaegloaf [Mass/Vol]0.58 mg/dLNormal 0.55-1.02The [facility] Hospitalment on above:Performed By: #### NA, URIC, BUN, CA, CL, CO2, CREA, K #### [facility] [address] [place] [address] Dr. Henriquez ChangEGFR-AF SWEDISH>60Normal>=60The [facility] Hospital DaytonComment on above:Performed By: #### NA, URIC, BUN, CA, CL, CO2, CREA, K #### [facility] [address] [place] [address] Dr. Florence RuedaGFR-NON AF SWEDISH>60Normal>=60The [facility] Hospital DaytonComment on above:Performed By: #### NA, URIC, BUN, CA, CL, CO2, CREA, K #### [facility] [address] [place] [address] Dr. Florence BeltránNAon 48-56-0265Sjzrzj [Moles/Vol]140 mmol/SMttlzg766-359Mtx [facility] DaytonCommclaren oakland on above:Performed By: #### NA, URIC, BUN, CA, CL, CO2, CREA, K #### [facility] [address] [place] [address] Dr. Florence Wakefieldon 99-20-4342Jnvgosrwm [Moles/Vol]4.1 mmol/LNormal 3.5-5.1[facility] on above:Performed By: #### NA, URIC, BUN, CA, CL, CO2, CREA, K #### [facility] [address] [place] [address] Dr. Florence Pardo 24 HR URINEon 37-35-7911IX, 24 HR UR213 mmol/24 hrNormal 40-220The [facility] on above:Performed By: #### NA, URIC, BUN, CA, CL, CO2, CREA, K #### [facility] [address] [place] [address] Dr. Florence Pardo (U) [Moles/Vol]125 mmol/LCritically jcwm43-89Xqa [facility] DaytonCommclaren oakland on above:Performed By: #### NA, URIC, BUN, CA, CL, CO2, CREA, K #### [facility] [address] [place] [address] Dr. Florence BeltránURIC ACID SERUMon 58-59-1718Vuckt [Mass/Vol]4.4 mg/dLNormal 2.6-6.0The [facility] Hospitalment on above:Performed By: #### NA, URIC, BUN, CA, CL, CO2, CREA, K #### [facility] [address] [place] [address] Dr. Florence Ken 33-16-3413Iqsr nitrogen [Mass/Vol]14.0 mg/dLNormal7.0-18.0 The [facility] DaytonComment on above:Performed By: #### NA, URIC, BUN, CA, CL, CO2, CREA, K #### [facility] [address] [place] [address] Dr. Florence BeltránCREATININEon 79-48-3578Jascqytzkm [Mass/Vol]0.68 mg/dLNormal 0.55-1.02The [facility] DaytonComment on above:Performed By: #### NA, URIC, BUN, CA, CL, CO2, CREA, K #### [facility] [address] [place] [address] Dr. Henriquez ChangEGFR-AF SWEDISH>60Normal>=60The [facility] Hospital DaytonComment on above:Performed By: #### NA, URIC, BUN, CA, CL, CO2, CREA, K #### [facility] [address] [place] [address] Dr. Florence RuedaGFR-NON AF SWEDISH>60Normal>=60The [facility] DaytonComment on above:Performed By: #### NA, URIC, BUN, CA, CL, CO2, CREA, K #### [facility] [address] [place] [address] Dr. Florence BeltránXR IVPon 46-44-2556RQ IVPEXAMINATION: XR IVP HISTORY: Kidney stone COMPARISON: No relevant comparison available. TECHNIQUE: After obtaining patient consent a television engineering teacher image was obtained followed by injection of [...] Electronically authenticated by: ADRY LANGLEY Date: 2022-04-23 10:13CentervilleCHEMISTRYOrdered By: SYSTEM SYSTEM on 99-59-8251Rcohudv [Mass/Vol]4.2 g/dLNormal3.3 - 5.0 gm/dLFTMC RemisolAlbumin/Globulin [Mass ratio] 1.1 {ratio}Normal1.1 - 2.2FT[facility] RemisolALP [Catalytic activity/Vol]142 [iU]/dHigh 21 - 98 Int._Unit/LFTMC RemisolALT No additional P-5'-P [Catalytic activity/Vol] 37 [iU]/dNormal6 - 46 Int._Unit/LFTMC RemisolAnion gap [Moles/Vol]14 mmol/L Normal6 - 16 mEq/LFTMC RemisolAST [Catalytic activity/Vol]31 [iU]/dNormal5 - 43 Int._Unit/LFTMC RemisolBilirubin [Mass/Vol]0.4 mg/dLNormal0.0 - 1.1 mg/dLFTMC RemisolBilirubin.direct [Mass/Vol]0.2 mg/dLNormal0.1 - 0.4 mg/dLFTMC Remisol Bilirubin.indirect [Mass or moles/Vol]0.2 mg/dLNormal0.1 - 0.9 mg/dLFTMC Remisol Calcium [Mass/Vol]9.5 mg/dLNormal8.9 - 11.1 mg/dLFTMC RemisolChloride [Moles/Vol]101 mmol/ZYlyykc897 - 111 mmol/LFTMC RemisolCO2 [Moles/Vol]26 mmol/L Wggiwk93 - 31 mmol/LFTMC RemisolCreatinine [Mass/Vol]0.8 mg/dLNormal0.5 - 1.3 mg/dLFTMC RemisolGFR/1.73 sq M.predicted among blacks MDRD (S/P/Bld) [Vol rate/Area]mL/min/1.73 q5Gwcvfe>=59mL/min/1.73 m2FT[facility] Chem SGFR/1.73 sq M.predicted among non-blacks MDRD (S/P/Bld) [Vol rate/Area]mL/min/1.73 t9Jvfwxq >=59mL/min/1.73 m2[facility] Chem SGlobulin (S) [Mass/Vol]3.7 g/dLNormal1.4 - 4.0 gm/dLFTMC RemisolGlucose [Mass/Vol]114 mg/sMDhovas14 - 199 mg/dLFTMC Remisol Lipase [Catalytic activity/Vol]21 U/GUioarm75 - 58 unit/LFT[facility] RemisolPotassium [Moles/Vol]4.2 mmol/LNormal3.5 - 5.3 mmol/LFT[facility] RemisolProtein [Mass/Vol]7.9 g/dLHigh6.0 - 7.8 gm/dLFTMC RemisolSodium [Moles/Vol]137 mmol/HBgcegu061 - 145 mmol/LFTMC RemisolUrea nitrogen [Mass/Vol]18 mg/dLNormal5 - 21 mg/dLFT[facility] Remisol Urea nitrogen/Creatinine [Mass ratio]22 mg/isSuzi02 - 20FT[facility] RemisolHEMATOLOGY Ordered By: SYSTEM SYSTEM on [id number]/100 WBC (Bld)0.8 %Normal0.0 - 2.0 %[facility] HemeAutoSSBasophils/Leukocytes Auto (Bld) [Pure # fraction]0.1 E9/L Normal0.0 - 0.2 E9/LFTMC HemeAutoSSEosinophils/100 WBC (Bld)4.9 %Normal0.0 - 8.0 %[facility] HemeAutoSSEosinophils/Leukocytes Auto (Bld) [Pure # fraction]0.5 E9/L Normal0.0 - 0.5 E9/LFTMC HemeAutoSSLymphocytes/100 WBC (Bld)14.4 %Sqhpxu13.0 - 50.0 %[facility] HemeAutoSSLymphocytes/Leukocytes Auto (Bld) [Pure # fraction]1.5 E9/L Normal1.0 - 4.0 E9/LFT[facility] HemeAutoSSMonocytes/100 WBC (Bld)8.3 %Normal4.0 - 14.0 %[facility] HemeAutoSSMonocytes/Leukocytes Auto (Bld) [Pure # fraction]0.9 E9/LNormal 0.2 - 1.0 E9/LFTMC HemeAutoSSNeutrophils/100 WBC (Bld)71.6 %Akfsst58.0 - 75.0 % [facility] HemeAutoSSNeutrophils/Leukocytes Auto (Bld) [Pure # fraction]7.6 E9/LHigh 2.0 - 7.5 E9/LFT[facility] HemeAutoSSHEMATOLOGYOrdered By: Randall Burns on 26-53-9335Bhshubdvfdb distribution width (RBC) [Ratio]13.5 %Vrilsu24.9 - 14.2 % [facility] HemeAutoSSHematocrit (Bld) [Volume fraction]43.5 %Kvwxex82.0 - 46.0 %[facility] HemeAutoSSHemoglobin (Bld) [Mass/Vol]14.5 g/tHKgsdeb16.0 - 16.0 gm/dLFTMC HemeAutoSSMCH (RBC) [Entitic mass]29.2 crTljhpj29.0 - 34.0 pgFTMC HemeAutoSSMCHC (RBC) [Mass/Vol]33.3 g/sFGjdmfe18.4 - 36.0 gm/dLFTMC HemeAutoSSMCV (RBC) [Entitic vol]87.7 jVSvyeoc01.0 - 100.0 fLFTMC HemeAutoSSPlatelet mean volume (Bld) [Entitic vol]7.5 fLNormal6.4 - 10.8 fLFTMC HemeAutoSSPlatelets (Bld) [#/Vol]377.0 E9/RDupkpz984.0 - 500.0 E9/L[facility] HemeAutoSSRBC (Bld) [#/Vol]5.0 E12/LNormal4.3 - 5.9 E12/L[facility] HemeAutoSSWBC corrected for nucl RBC Auto (Bld) [#/Vol]10.6 E9/LNormal4.0 - 11.0 E9/L[facility] HemeAutoSSURINALYSISOrdered By: Randall Burns on 34-92-1654Weuworuq LM Ql (Urine sed)2+ /HPFInvalid Interpretation CodeTrace/HPFFT UA Auto SSBilirubin Ql (U)1+ *ABN* (03/30/22 10:55 PM)Invalid Interpretation CodeNegativeT[facility] [place] [facility] Auto SSClarity (U) Clear (03/30/22 10:55 PM)NormalClearFHARPER [facility] [place] Auto SSColor (U)Yellow (03/30/22 10:55 PM)NormalYellowFT UA Auto SSEpithelial cells.squamous LM.HPF (Urine sed) [#/Area]5-8 /HPFNormal0-2/HPFFT UA Auto SSGlucose Test strip (U) [Mass/Vol]Negative (03/30/22 10:55 PM)NormalNegativeTULSA [facility] [place] UA Auto SSHemoglobin Ql (U)2+ *ABN* (03/30/22 10:55 PM)Invalid Interpretation CodeNegativeTULSA [facility] [place] U[facility] Auto SSKetones (U) [Mass/Vol]Trace *NA* (03/30/22 10:55 PM)Invalid Interpretation CodeNegativeTULSA [facility] [place] U[facility] Auto SS [place].plasma/[place].RBC (Bld) [Mass ratio]4-20 /HPFNormal0-3/HPFFT UA Auto SSNitrite Ql (U)Negative (03/30/22 10:55 PM)NormalNegativeT[facility] [place] U[facility] Auto SSpH (U)5.5 *NA* (03/30/22 10:55 PM)Invalid Interpretation Code5.0 - 9.0[facility] U[facility] Auto SSProtein (U) [Mass/Vol]1+ *ABN* (03/30/22 10:55 PM)Invalid Interpretation CodeNegativeTULSA [facility] [place] UA Auto SSSpecific gravity (U) [Rel density]>=1.030 *NA* (03/30/22 10:55 PM)Invalid Interpretation Code1.005 - 1.030FT UA Auto SSUA Spec DescClean Catch (03/30/22 10:55 PM)NormalFT UA Auto SSUrobilinogen Qn (U)0.9281740 {Joni'U}/dLNormal0.0 - 1.0 EU/dLTULSA CENTER FOR [facility]IOR[facility] [place] UA Auto SSWBC Auto Ql (U)2+ *ABN* (03/30/22 10:55 PM)Invalid Interpretation CodeNegativeTULSA [facility] [place] U[facility] Auto SSWBC LM.HPF (Urine sed) [#/Area]6-15 /HPFInvalid Interpretation Code0-5/HPFTULSA CENTER FOR BEHAVIORAL [facility]ALTH [facility] [place] UA Auto SS CBC AUTO DIFFon [id number] #0.1 103/ulNormal0.0-0.1[facility] Comment on above:Performed By: #### NA, URIC, BUN, CA, CL, CO2, CREA, K #### [facility] [address] [place] [address] Dr. Florence BeltránBasophils/100 WBC (Bld)0.6 %Normal0.2-2.0[facility] Comment on above:Performed By: #### NA, URIC, BUN, CA, CL, CO2, CREA, K #### [facility] [address] [place] [address] Dr. Florence Ramirez #0.3 103/ulNormal0.0-0.7The [facility] DaytonComment on above: Performed By: #### NA, URIC, BUN, CA, CL, CO2, CREA, K #### [facility] [address] [place] [address] Dr. Florence Ruedaosinophils/100 WBC (Bld)4.4 %Normal0.9-7.0[facility] Comment on above:Performed By: #### NA, URIC, BUN, CA, CL, CO2, CREA, K #### [facility] [address] [place] [address] Dr. Florence Ruedarythrocyte distribution width (RBC) [Ratio]13.0 %Jnwblp28.0-15.0 [facility] DaytonComment on above:Performed By: #### NA, URIC, BUN, CA, CL, CO2, CREA, K #### [facility] [address] [place] [address] Dr. Florence BeltránHematocrit (Bld) [Volume fraction]42.3 %Kskzkc73.0-48.0[facility] DaytonComment on above:Performed By: #### NA, URIC, BUN, CA, CL, CO2, CREA, K #### [facility] [address] [place] [address] Dr. Florence BeltránHemoglobin (Bld) [Mass/Vol]13.9 g/lSAjgblx55.0-16.0[facility] DaytonComment on above:Performed By: #### NA, URIC, BUN, CA, CL, CO2, CREA, K #### [facility] [address] [place] [address] Dr. Florence Zuñiga #0.03 10e3/ulNormal0.00-0.03The [facility] DaytonComment on above:Performed By: #### NA, URIC, BUN, CA, CL, CO2, CREA, K #### [facility] [address] [place] [address] Dr. Florence Zuñiga %0.4 %Normal0.0-0.5The [facility] DaytonComment on above: Performed By: #### NA, URIC, BUN, CA, CL, CO2, CREA, K #### [facility] [address] [place] [address] Dr. Florence Rahman #1.4 103/ulNormal1.2-3.8The [facility] DaytonComment on above:Performed By: #### NA, URIC, BUN, CA, CL, CO2, CREA, K #### [facility] [address] [place] [address] Dr. Florence Goodrichmphocytes/100 WBC (Bld)17.9 %Critically low20.5-60.0The [facility] DaytonComment on above:Performed By: #### NA, URIC, BUN, CA, CL, CO2, CREA, K #### [facility] [address] [place] [address] Dr. Florence ByrdUAL DIFF REQNONormalThe [facility] Hospital DaytonComment on above: Performed By: #### NA, URIC, BUN, CA, CL, CO2, CREA, K #### [facility] [address] [place] [address] Dr. Florence BeltránSAM[facility]IT[facility] (RBC) [Entitic mass]29.6 smWhvtra70.7-34.0[facility] DaytonComment on above:Performed By: #### NA, URIC, BUN, CA, CL, CO2, CREA, K #### [facility] [address] [place] [address] Dr. Florence Beltrán[facility] (RBC) [Mass/Vol]32.9 g/jPWsapzq13.9-35.2The [facility] DaytonComment on above:Performed By: #### NA, URIC, BUN, CA, CL, CO2, CREA, K #### [facility] [address] [place] [address] Dr. Florence Craven (RBC) [Entitic vol]90.0 zJOxpxkn51.0-99.0The [facility] DaytonComment on above:Performed By: #### NA, URIC, BUN, CA, CL, CO2, CREA, K #### [facility] [address] [place] [address] Dr. Florence Peres #0.6 103/ulNormal0.3-0.8[facility]ment on above:Performed By: #### NA, URIC, BUN, CA, CL, CO2, CREA, K #### [facility] [address] [place] [address] Dr. Florence Grantocytes/100 WBC (Bld)7.8 %Normal1.7-12.0[facility] Comment on above:Performed By: #### NA, URIC, BUN, CA, CL, CO2, CREA, K #### [facility] [address] [place] [address] Dr. Florence Sorenson #5.4 103/ulNormal1.4-6.5The [facility] DaytonComment on above:Performed By: #### NA, URIC, BUN, CA, CL, CO2, CREA, K #### [facility] [address] [place] [address] Dr. Florence Aguilerautrophils/100 WBC (Bld)68.9 %Bxmwie38.0-75.0[facility] Hospitalment on above:Performed By: #### NA, URIC, BUN, CA, CL, CO2, CREA, K #### [facility] [address] [place] [address] Dr. Florence Hansen mean volume (Bld) [Entitic vol]9.6 fLNormal9.5-13.5The [facility] DaytonComment on above:Performed By: #### NA, URIC, BUN, CA, CL, CO2, CREA, K #### [facility] [address] [place] [address] Dr. Florence BeltránPLT371 103/jiMjipob519-788Cxm [facility] on above: Performed By: #### NA, URIC, BUN, CA, CL, CO2, CREA, K #### [facility] [address] [place] [address] Dr. Florence BeltránRBC4.70 106/ulNormal4.20-5.40The [facility] on above:Performed By: #### NA, URIC, BUN, CA, CL, CO2, CREA, K #### [facility] [address] [place] [address] Dr. Florence BeltránWBC7.8 103/ulNormal4.0-11.0The [facility] on above: Performed By: #### NA, URIC, BUN, CA, CL, CO2, CREA, K #### [facility] [address] [place] [address] Dr. Florence Carnes 67-62-3960III2.1 mg/dLCritically high<=1.0The [facility] on above:Performed By: #### NA, URIC, BUN, CA, CL, CO2, CREA, K #### [facility] [address] [place] [address] Dr. Yilan ChangSED RATE WESTERGRENon [id number] RATE44 mm/hrCritically high <=30The [facility] DaytonComment on above:Performed By: #### NA, URIC, BUN, CA, CL, CO2, CREA, K #### [facility] [address] [place], [place] [address] Dr. Florence BeltránURIC ACID SERUMon [id number] [Mass/Vol]5.5 mg/dLNormal 2.6-6.0The [facility] DaytonComment on above:Performed By: #### NA, URIC, BUN, CA, CL, CO2, CREA, K #### [facility] [address] [place] [address] [address] Florence BeltránCHEMISTRYOrdered By: SYSTEM SYSTEM on 02-97-9874Iivmnwn [Mass/Vol]3.8 g/dLNormal3.3 - 5.0 gm/dLFTMC RemisolAlbumin/Globulin [Mass ratio] 1.2 {ratio}Normal1.1 - 2.2[facility] RemisolALP [Catalytic activity/Vol]117 [iU]/dHigh 21 - 98 Int._Unit/LFTMC RemisolALT No additional P-5'-P [Catalytic activity/Vol] 31 [iU]/dNormal6 - 46 Int._Unit/LFT[facility] RemisolAnion gap [Moles/Vol]12 mmol/L Normal6 - 16 mEq/LFT[facility] RemisolAST [Catalytic activity/Vol]28 [iU]/dNormal5 - 43 Int._Unit/LFT[facility] RemisolBilirubin [Mass/Vol]0.7 mg/dLNormal0.0 - 1.1 mg/dLFTMC RemisolBilirubin.direct [Mass/Vol]mg/dLNormal0.1 - 0.4 mg/dLFTMC Remisol Bilirubin.indirect [Mass or moles/Vol]Unable to Calculate mg/dLInvalid Interpretation Code0.1 - 0.9 mg/dLFTMC RemisolCalcium [Mass/Vol]8.8 mg/dLLow8.9 - 11.1 mg/dLFTMC RemisolChloride [Moles/Vol]103 mmol/DQptslq593 - 111 mmol/LFTMC RemisolCO2 [Moles/Vol]24 mmol/UWhyxnm79 - 31 mmol/LFTMC RemisolCreatinine [Mass/Vol]0.7 mg/dLNormal0.5 - 1.3 mg/dLFTMC RemisolGFR/1.73 sq M.predicted among blacks MDRD (S/P/Bld) [Vol rate/Area]mL/min/1.73 f7Bqtnfc>=59mL/min/1.73 m2[facility] Chem SGFR/1.73 sq M.predicted among non-blacks MDRD (S/P/Bld) [Vol rate/Area]mL/min/1.73 v6Knidww>=59mL/min/1.73 m2[facility] Chem SGlobulin (S) [Mass/Vol]3.3 g/dLNormal1.4 - 4.0 gm/dLFTMC RemisolGlucose [Mass/Vol]124 mg/dL Aizybt12 - 199 mg/dLFTMC RemisolLipase [Catalytic activity/Vol]20 U/EJzujtz84 - 58 unit/LFT[facility] RemisolPotassium [Moles/Vol]3.9 mmol/LNormal3.5 - 5.3 mmol/LFTMC RemisolProtein [Mass/Vol]7.1 g/dLNormal6.0 - 7.8 gm/dLFTMC RemisolSodium [Moles/Vol]135 mmol/FAvjgcm414 - 145 mmol/LFTMC RemisolUrea nitrogen [Mass/Vol] 21 mg/dLNormal5 - 21 mg/dLFTMC RemisolUrea nitrogen/Creatinine [Mass ratio]30 mg/byCvuw48 - 20[facility] RemisolHEMATOLOGYOrdered By: SYSTEM SYSTEM on 01-24-2022 Basophils/100 WBC (Bld)0.7 %Normal0.0 - 2.0 %[facility] HemeAutoSSBasophils/Leukocytes Auto (Bld) [Pure # fraction]0.1 E9/LNormal0.0 - 0.2 E9/L[facility] HemeAutoSS Eosinophils/100 WBC (Bld)4.1 %Normal0.0 - 8.0 %[facility] HemeAutoSS Eosinophils/Leukocytes Auto (Bld) [Pure # fraction]0.4 E9/LNormal0.0 - 0.5 E9/L [facility] HemeAutoSSLymphocytes/100 WBC (Bld)10.2 %Low14.0 - 50.0 %[facility] HemeAutoSS Lymphocytes/Leukocytes Auto (Bld) [Pure # fraction]1.1 E9/LNormal1.0 - 4.0 E9/L [facility] HemeAutoSSMonocytes/100 WBC (Bld)9.3 %Normal4.0 - 14.0 %[facility] HemeAutoSS Monocytes/Leukocytes Auto (Bld) [Pure # fraction]1.0 E9/LNormal0.2 - 1.0 E9/L [facility] HemeAutoSSNeutrophils/100 WBC (Bld)75.7 %High36.0 - 75.0 %[facility] HemeAutoSS Neutrophils/Leukocytes Auto (Bld) [Pure # fraction]8.1 E9/LHigh2.0 - 7.5 E9/L [facility] HemeAutoSSHEMATOLOGYOrdered By: Karin Cruz on 15-81-2534Lzxjlhbeauo distribution width (RBC) [Ratio]13.8 %Ivtutr85.9 - 14.2 %[facility] HemeAutoSS Hematocrit (Bld) [Volume fraction]39.9 %Vzihux11.0 - 46.0 %[facility] HemeAutoSS Hemoglobin (Bld) [Mass/Vol]13.5 g/gGBeersz00.0 - 16.0 gm/dLFTMC HemeAutoSSMCH (RBC) [Entitic mass]29.7 ecAxhxmh58.0 - 34.0 pgFTMC HemeAutoSSMCHC (RBC) [Mass/Vol]33.8 g/sODpomca56.4 - 36.0 gm/dLFTMC HemeAutoSSMCV (RBC) [Entitic vol] 87.9 uSVerdjp52.0 - 100.0 fLFTMC HemeAutoSSPlatelet mean volume (Bld) [Entitic vol]8.1 fLNormal6.4 - 10.8 fLFTMC HemeAutoSSPlatelets (Bld) [#/Vol]354.0 E9/L Orvhof978.0 - 500.0 E9/LFT[facility] HemeAutoSSRBC (Bld) [#/Vol]4.5 E12/LNormal4.3 - 5.9 E12/LFT[facility] HemeAutoSSWBC corrected for nucl RBC Auto (Bld) [#/Vol]10.6 E9/L Normal4.0 - 11.0 E9/L[facility] HemeAutoSSURINALYSISOrdered By: Skyla Case on 76-56-6919Znekxbfn LM Ql (Urine sed)1+ /HPFInvalid Interpretation CodeTrace/HPF [facility] UA Auto SSBilirubin Ql (U)Negative (01/24/22 6:50 AM)NormalNegativeTUL[facility] [place] UA Auto SSCalcium oxalate crystals LM Ql (Urine sed)Present (01/24/22 6:50 AM)NormalTULSA C[facility] FOR [facility] [place] UA Auto SSClarity (U)Clear (01/24/22 6:50 AM)NormalClearFHARPER [facility] [place] U[facility] Auto SSColor (U)Yellow (01/24/22 6:50 AM)NormalYellowFT UA Auto SSCrystals LM Ql (Urine sed)Present (01/24/22 6:50 AM)NormalTULSA C[facility] [place] UA Auto SSEpithelial cells.squamous LM.HPF (Urine sed) [#/Area]3-4 /HPFNormal0-2/HPFTULSA CENTER FOR BEHAVIORAL [facility] [place] UA Auto SSGlucose Test strip (U) [Mass/Vol]Negative (01/24/22 6:50 AM)NormalNegativeTULSA [facility] [place] UA Auto SSHemoglobin Ql (U)1+ *ABN* (01/24/22 6:50 AM)Invalid Interpretation CodeNegativeTULSA [facility] [place] UA Auto SSKetones (U) [Mass/Vol]Negative (01/24/22 6:50 AM)NormalNegativeTULSA [facility] [place] UA Auto SSLithium.plasma/[place].RBC (Bld) [Mass ratio]4-20 /HPFNormal0-3/HPFTULSA CENTER FOR BEHAVIORAL [facility] [place] UA Auto SSMucus Ql (Urine sed)1+ (01/24/22 6:50 AM)NormalTULSA CENTER FOR [facility] [place] UA Auto SSNitrite Ql (U)Negative (01/24/22 6:50 AM)NormalNegativeTULSA [facility] [place] UA Auto SSpH (U)7.0 *NA* (01/24/22 6:50 AM)Invalid Interpretation Code5.0 - 9.0[facility]A Auto SSProtein (U) [Mass/Vol]Negative (01/24/22 6:50 AM)NormalNegativeTULSA [facility] [place] UA Auto SSSpecific gravity (U) [Rel density] 1.020 *NA* (01/24/22 6:50 AM)Invalid Interpretation Code1.005 - 1.030[facility] [place] UA Auto SSUA Spec DescClean Catch (01/24/22 6:50 AM)NormalTULSA CENTER FOR [facility]IOR[facility] [place] UA Auto SSUrobilinogen Qn (U)0.3616638 {Joni'U}/dLNormal0.0 - 1.0 EU/dLTULSA CENTER FOR BE[facility]AVIORAL [facility] [place] UA Auto SSWBC Auto Ql (U)Negative (01/24/22 6:50 AM)NormalNegativeTUL[facility] [place] [facility] Auto SSWBC LM.HPF (Urine sed) [#/Area]0-5 /HPFNormal0-5/HPFTULSA CENTER FOR BEHAVIOR[facility] [place] UA Auto SSUrinalysis - AUTOMATEDon 08-03-8961Zcjetqbgtd (U)Nuvola SystemsGeneral [facility] [employer] Other Bilirubin Ql (U)moderateKloudless [employer] Other Color (U)amberKloudless [employer] Other Glucose Ql (U)Psychiatric hospitalKloudless [employer] Other Hemoglobin Ql (U)largeKloudless [employer] Other Ketones Ql (U)[employer]Say [employer] Other Leukocyte esterase Test strip Ql (U)[facility] memorial hospitalView Inc. [employer] Other Nitrite Ql (U)NegativeKloudless [employer] Other pH (U)5.0 [pH][place] [employer] Other Protein Ql (U)100Kloudless [employer] Other Specific gravity (U) [Rel density]>1.030Kloudless [employer] Other Urobilinogen (U) [Mass/Vol]1.0 mg/dLWAKU WAKU ? Other Urinalysis - AUTOMATEDWAKU WAKU ? Other Urine Cultureon 92-25-8128Prtcurxu identified Cx Nom (U)WAKU WAKU ? Other TSH+FREE T4on 81-06-5305[place] T4 [Mass/Vol]1.3 ng/dL Normal0.8-1.8Quest DiagnosticsComment on above:Performed By: #### [id number] #### [facility] of [address], [address] [place], [place] [address] Photogrammetric Surveyor: Geremias Toney [facility] Qn1.12 m[IU]/LNormal0.40-4.50Quest DiagnosticsComment on above:Performed By: #### [id number] #### [facility] [address], [address] [place] [address] Photogrammetric Surveyor: Geremias Toney MDCHEMISTRYOrdered By: SYSTEM SYSTEM on 10-15-2223Kldnbbsca [Mass/Vol]4.2 mg/dLNormal1.9 - 4.6 mg/dLFTMC RemisolAlbumin [Mass/Vol]3.7 g/dLNormal3.3 - 5.0 gm/dLFTMC RemisolAlbumin/Globulin [Mass ratio] 1.2 {ratio}Normal1.1 - 2.2[facility] RemisolALP [Catalytic activity/Vol]129 [iU]/dHigh 21 - 98 Int._Unit/LFTMC RemisolALT No additional P-5'-P [Catalytic activity/Vol] 29 [iU]/dNormal6 - 46 Int._Unit/LFTMC RemisolAnion gap [Moles/Vol]14 mmol/L Normal6 - 16 mEq/LFTMC RemisolAST [Catalytic activity/Vol]22 [iU]/dNormal5 - 43 Int._Unit/LFTMC RemisolBilirubin [Mass/Vol]0.9 mg/dLNormal0.0 - 1.1 mg/dLFTMC RemisolCalcium [Mass/Vol]9.5 mg/dLNormal8.9 - 11.1 mg/dLFTMC RemisolChloride [Moles/Vol]103 mmol/RHlyvti938 - 111 mmol/LFTMC RemisolCholesterol [Mass/Vol]230 mg/fJKvbf870 - 200 mg/dLFTMC RemisolCholesterol in HDL [Mass/Vol]75 mg/dL Invalid Interpretation CodeFTMC RemisolCholesterol in LDL [Mass/Vol]154 mg/dL High<=129mg/dLFTMC RemisolCholesterol in VLDL [Mass/Vol]13 mg/dLNormal7 - 40 mg/dLFTMC RemisolCO2 [Moles/Vol]27 mmol/SYuoeim31 - 31 mmol/LFTMC Remisol Creatinine [Mass/Vol]0.6 mg/dLNormal0.5 - 1.3 mg/dLFTMC RemisolFree T4 [Mass/Vol]1.03 ng/dLNormal0.58 - 1.64 ng/dLFTMC RemisolGFR/1.73 sq M.predicted among blacks MDRD (S/P/Bld) [Vol rate/Area]mL/min/1.73 k7Hetpnz>=59mL/min/1.73 m2[facility] Chem SGFR/1.73 sq M.predicted among non-blacks MDRD (S/P/Bld) [Vol rate/Area]mL/min/1.73 d6Gqrcsg>=59mL/min/1.73 m2[facility] Chem SGlobulin (S) [Mass/Vol]3.2 g/dLNormal1.4 - 4.0 gm/dLFTMC RemisolGlucose [Mass/Vol]97 mg/dL Seaxbl42 - 199 mg/dLFTMC RemisolPotassium [Moles/Vol]4.6 mmol/LNormal3.5 - 5.3 mmol/LFTMC RemisolProtein [Mass/Vol]6.9 g/dLNormal6.0 - 7.8 gm/dLFTMC Remisol Sodium [Moles/Vol]139 mmol/VYepvwx019 - 145 mmol/LFTMC RemisolTriglyceride [Mass/Vol]66 mg/dLNormal<=149mg/dLFTMC RemisolTSH Qn1.21 m[IU]/LNormal0.34 - 5.60 mcIU/mLFTMC RemisolUrea nitrogen [Mass/Vol]12 mg/dLNormal5 - 21 mg/dLTULSA CENTER FOR [facility] [place] RemisolUrea nitrogen/Creatinine [Mass ratio]20 mg/dfPeplmb36 - 20[facility] Remisol COMPREHENSIVE METABOLIC PANELon 59-95-6477Lkecyjl [Mass/Vol]4.2 g/dLNormal 3.6-5.1Quest DiagnosticsComment on above:Performed By: #### [id number] #### [facility] of [address], [address] [place] [address] Photogrammetric Surveyor: Geremias Toney MDAlbumin/Globulin [Mass ratio]1.8 {ratio}Normal 1.0-2.5Quest DiagnosticsComment on above:Performed By: #### [id number] #### [facility] of [place] [address] Photogrammetric Surveyor: Geremias Toney MDALP [Catalytic activity/Vol]132 U/LNormal 37-153Quest DiagnosticsComment on above:Performed By: #### [id number] #### [facility] of [place] [address] Photogrammetric Surveyor: Geremias Toney MDALT [Catalytic activity/Vol]102 U/LHigh6-29 Quest DiagnosticsComment on above:Performed By: #### [id number] #### [facility] of [place] [address] Photogrammetric Surveyor: Geremias Toney MDAST [Catalytic activity/Vol]54 U/WNhrp37-67 Quest DiagnosticsComment on above:Performed By: #### [id number] #### [facility] of [place] [address] Photogrammetric Surveyor: Geremias Toney MDBilirubin [Mass/Vol]0.6 mg/dLNormal0.2-1.2 Quest DiagnosticsComment on above:Performed By: #### [id number] #### [facility] of [place] [address] Photogrammetric Surveyor: Geremias Toney MDBUN/CREATININE RATIONOT APPLICABLENormal6-22 Quest DiagnosticsComment on above:Performed By: #### [id number] #### [facility] [address], [address] [place] [address] Photogrammetric Surveyor: Geremias Toney MDCalcium [Mass/Vol]9.3 mg/dLNormal8.6-10.4Quest DiagnosticsComment on above:Performed By: #### [id number] #### [facility] [address], [address] [place] [address] Photogrammetric Surveyor: Geremias Toney MDChloride [Moles/Vol]108 mmol/AWaezcu98-881 Quest DiagnosticsComment on above:Performed By: #### [id number] #### [facility] [place] [address] Photogrammetric Surveyor: Geremias Toney MDCO2 [Moles/Vol]28 mmol/AImwskv62-74Mribl DiagnosticsComment on above:Performed By: #### [id number] #### [facility] [place] [address] Photogrammetric Surveyor: Geremias Toney MDCreatinine [Mass/Vol]0.62 mg/dLNormal0.50-1.05 Quest DiagnosticsComment on above:Result Comment: For patients >49 years of age, the reference limit for Creatinine is approximately 13% higher for people identified as -[place].Performed By: #### [id number] #### [facility] [address], [address] [place] [address] Photogrammetric Surveyor: Geremias Toney MDeGFR NON-AFR. VXHJFWOW83 mL/min/1.78c8Ljezyx> OR = 60Quest DiagnosticsComment on above:Performed By: #### [id number] #### [facility] [place] [address] Photogrammetric Surveyor: Geremias Toney MDGFR/1.73 sq M.predicted among blacks MDRD (S/P/Bld) [Vol rate/Area]114 mL/min/{1.73_m2}Normal> OR = 60[facility] Comment on above:Performed By: #### [id number] #### [facility] of [place] [address] Photogrammetric Surveyor: Geremias Toney MDGlobulin (S) [Mass/Vol]2.4 g/dLNormal1.9-3.7 Quest DiagnosticsComment on above:Performed By: #### [id number] #### [facility] of [place] [address] Photogrammetric Surveyor: Geremias Toney MDGlucose [Mass/Vol]97 mg/dQQewvif39-22Ugvth DiagnosticsComment on above:Result Comment: Fasting reference intervalPerformed By: #### [id number] #### [facility] [place] [address] Photogrammetric Surveyor: Geremias Toney MDPotassium [Moles/Vol]3.7 mmol/LNormal3.5-5.3 [facility] DiagnosticsComment on above:Performed By: #### [id number] #### [facility] [place] [address] Photogrammetric Surveyor: Geremias Toney MDProtein [Mass/Vol]6.6 g/dLNormal6.1-8.1Quest DiagnosticsComment on above:Performed By: #### [id number] #### [facility] [place] [address] Photogrammetric Surveyor: Geremias Toney MDSodium [Moles/Vol]143 mmol/NZzllvd600-894Nlxkz DiagnosticsComment on above:Performed By: #### [id number] #### [facility] [place] [address] Photogrammetric Surveyor: Geremias Toney MDUrea nitrogen [Mass/Vol]14 mg/dLNormal7-25 [facility] DiagnosticsComment on above:Performed By: #### [id number] #### [facility] of [address] [place] [address] Photogrammetric Surveyor: Geremias YAÑEZ Quick Testingon 02-20-8302NooykdYjcvnvjr WAKU WAKU ? Other BASI METABOLIC PANEL W/O CAon 02-09-2021 BUN/CREATININE RATIONOT APPLICABLENormal6-22Quest DiagnosticsComment on above: Performed By: #### [id number], [id number] #### [facility] of [address], [address] [place] [address] Photogrammetric Surveyor: Geremias MATSONhloride [Moles/Vol]103 mmol/BAmjfur21-032 Quest DiagnosticsComment on above:Performed By: #### [id number], [id number] #### [facility] [address], [address] [place] [address] Photogrammetric Surveyor: Geremias Toney MDCO2 [Moles/Vol]29 mmol/ZEskmri11-96Vcsts DiagnosticsComment on above:Performed By: #### [id number], [id number] #### [facility] [address], [address] [place] [address] Photogrammetric Surveyor: Geremias MATSONreatinine [Mass/Vol]0.64 mg/dLNormal0.50-1.05 [facility] DiagnosticsComment on above:Result Comment: For patients >49 years of age, the reference limit for Creatinine is approximately 13% higher for people identified as -[place]osoth[place].Performed By: #### [id number], [id number] #### [facility] of [address], [address] [place] [address] Photogrammetric Surveyor: Geremias Toney MDeGFR NON-AFR. QRCZINLU06 mL/min/1.09l7Ddavlh> OR = 60Quest DiagnosticsComment on above:Performed By: #### [id number], [id number] #### [facility] [address], [address] [place] [address] Photogrammetric Surveyor: Geremias Toney MDGFR/1.73 sq M.predicted among blacks MDRD (S/P/Bld) [Vol rate/Area]114 mL/min/{1.73_m2}Normal> OR = 60[facility] Comment on above:Performed By: #### [id number], [id number] #### [facility] [place] [address] Photogrammetric Surveyor: Geremias Toney MDGlucose [Mass/Vol]90 mg/eQRkiitl01-84Vuljr DiagnosticsComment on above:Result Comment: Fasting reference intervalPerformed By: #### [id number], [id number] #### [facility] [place] [address] Photogrammetric Surveyor: Geremias Toney MDPotassium [Moles/Vol]4.4 mmol/LNormal3.5-5.3 [facility] DiagnosticsComment on above:Performed By: #### 24712, 33969 #### [facility] [place] [address] Photogrammetric Surveyor: Geremias Toney MDSodium [Moles/Vol]143 mmol/XGlqjwg322-586Qytox DiagnosticsComment on above:Performed By: #### 43119, 04829 #### [facility] [place] [address] Photogrammetric Surveyor: Geremias Toney MDUrea nitrogen [Mass/Vol]17 mg/dLNormal7-25 [facility] DiagnosticsComment on above:Performed By: #### 68797, 72405 #### [facility] [place] [address] Photogrammetric Surveyor: Geremias FARMER+FREE T4on [id number] T4 [Mass/Vol]1.1 ng/dLNormal0.8-1.8Quest DiagnosticsComment on above:Performed By: #### 85670, 88666 #### [facility] [place] [address] Photogrammetric Surveyor: Geremias FARMER Qn0.59 m[IU]/LNormal0.40-4.50Quest DiagnosticsComment on above:Performed By: #### 22280, 69970 #### [facility] [address], [address] [place] [address] Photogrammetric Surveyor: Geremias Toney MD Vital Signs Date TimeVital SignValuePerforming GqxdykmfyCukzrixs40-55-2463 12:32-0400Body .1 cmAbianca Trujillo MD Work Phone: [phone] [employer] Rrftbe40-14-9978 12:32-0400Body mass index (BMI) [Ratio]29.97 kg/y6WwmwbClaudio Trujillo MD Work Phone: [phone] Azndlp70-86-2563 12:32-0400Body sfexlw77.69 kgClaudio Trujillo MD Work Phone: [phone] Fvbqsd38-56-8834 12:32-0400Diastolic blood uiznuqwn00 mm[Hg]Claudio Trujillo MD Work Phone: [phone] [employer] Iwtbrq36-42-6840 12:32-0400Heart rate 92 /minClaudio Trujillo MD Work Phone: [phone] Fknwsn23-83-1197 12:32-9687NjU2% (BldA) [Mass fraction]96 %Claudio Trujillo MD Work Phone: [phone] Bjesjm23-81-1665 12:32-0400Systolic blood cyrbmvvi611 mm[Hg]Claudio Trujillo MD Work Phone: [phone] Iykdmk99-45-0467 16:14-0400Body iosdve461.1 cmDenmojgan KimSolarNOWng DO Work Phone: [facility] Cxreuc15-19-1850 16:14-0400Body mass index (BMI) [Ratio]29.4 kg/k4Oyevfv Furlong DO Work Phone: [facility] Iiywbf70-25-1392 16:14-0400Body grfvtzvmaop74.7 [degF]Gera Furlong DO Work Phone: [facility] [employer] Tbbomw47-96-5673 16:14-0400Body .15 kgDennis Furlong DO Work Phone: [facility] [employer] Hkjbdr84-00-1309 16:14-0400Diastolic blood ckcuymzm57 mm[Hg]Gera Furlong DO Work Phone: [facility] [employer] Coqhjk86-56-6414 16:14-0400Heart rate 73 /minDennis Furlong DO Work Phone: [facility]10-20-2025 16:14-0400 Respiratory rate20 /minDennis Furlong DO Work Phone: [facility]10-20-2025 16:14-4298GoM2% (BldA) [Mass fraction]97 %Gera Furlong DO Work Phone: [facility] [employer] Plcihn16-11-8003 16:14-0400Systolic blood mejgtgdy598 mm[Hg]Gera Furlong DO Work Phone: [facility]09-24-2025 09:03-0400Body yljzdi468.1 cmToni Bansal MD Work Phone: [facility]09-24-2025 09:03-0400 Body mass index (BMI) [Ratio]31.15 kg/m6AdzmyykToni Bansal MD Work Phone: [facility]09-24-2025 09:03-0400 Body wnsihy41.91 kgToni Bansal MD Work Phone: [phone]09-19-2025 11:03-0400 Body ajuszt187.1 cmDennis Judylong DO Work Phone: [facility]09-19-2025 11:03-0400Body mass index (BMI) [Ratio]30.52 kg/p9Ynseum Furlong DO Work Phone: [facility]09-19-2025 11:03-0400Body reqijtizwft91.81 [degF]Gera Kimlong DO Work Phone: [facility]09-19-2025 11:03-0400Body isotjg36.19 kgDenmojgan Furlong DO Work Phone: [facility]09-19-2025 11:03-0400Diastolic blood epctzrpx67 mm[Hg]Gera Furlong DO Work Phone: [facility]09-19-2025 11:03-0400Heart rate 75 /minDennis Furlong DO Work Phone: [facility]09-19-2025 11:03-9874DnP6% (BldA) [Mass fraction]98 %Gera Kimlong DO Work Phone: [facility]09-19-2025 11:03-0400Systolic blood eidmxfpd858 mm[Hg]Gera Kimlong DO Work Phone: [facility]09-08-2025 12:50-0400Diastolic blood zkqxxnsu03 mm[Hg]Gera Furlong DO Work Phone: [facility]09-08-2025 12:50-0400 Heart rate66 /minDennis Furlong DO Work Phone: [facility]09-08-2025 12:50-0400 Respiratory rate16 /minDennis Furlong DO Work Phone: [facility]09-08-2025 12:50-0400 SaO2% (BldA) [Mass fraction]97 %Gera Kimlong DO Work Phone: [facility]09-08-2025 12:50-0400 Systolic blood mm[Hg]Gera Furlong DO Work Phone: [facility]09-08-2025 12:20-0400 Inhaled oxygen flow rate8 L/minDennis Furlong DO Work Phone: [facility]09-08-2025 10:40-0400 Body ujsdhb750.1 cmGera Burciaga DO Work Phone: [facility]09-08-2025 10:40-0400 Body .7 [degF]Gera Tsaing DO Work Phone: [facility]09-08-2025 10:40-0400 Body tgdzfo23.28 kgGera Tsaing DO Work Phone: [facility]07-24-2025 20:04-0400 Body woxkbs313.[address]07-24-2025 20:04-0400Body mass index (BMI) [Ratio]30.45 kg/m2Pmh [address] [place], [place] [address]107-24-2025 20:04-0400 Body ugyysd51.[address]06-24-2025 12:32-0400Body height 165.1 cmAbianca Trujillo MD Work Phone: [phone]06-24-2025 12:32-0400Body mass index (BMI) [Ratio]30.79 kg/k7AyhaeClaudio Trujillo MD Work Phone: [phone]06-24-2025 12:32-0400Body .92 kgClaudio Trujillo MD Work Phone: [phone]06-24-2025 12:32-0400Diastolic blood yzokpioq80 mm[Hg]Claudio Trujillo MD Work Phone: [facility]06-24-2025 12:32-0400Heart rate 95 /minClaudio Trujillo MD Work Phone: [phone]06-24-2025 12:32-2524DsZ8% (BldA) [Mass fraction]97 %Claudio Trujillo MD Work Phone: [phone]06-24-2025 12:32-0400Systolic blood fzlrqynn767 mm[Hg]Claudio Trujillo MD Work Phone: [facility]06-18-2025 08:59-0400Body mpfimq988.1 cmAslim Solo MD Work Phone: [facility]ldbarvafa09-28-1840 08:59-0400Body mass index (BMI) [Ratio]30.95 kg/b4FgikbManju Solo MD Work Phone: [phone] [place], [place] [address]Bddgofshgz71-71-2491 08:59-0400Body jocqrx07.37 kgManju Solo MD Work Phone: [address] [place], [place] [address]Hkvhtdsjxh68-82-1001 08:59-0400Diastolic blood kzvevmzi57 mm[Hg]Manju Solo MD Work Phone: [address] [place], [place] [address]Rnllztypko05-86-8017 08:59-0400Heart rate66 /min Manju Solo MD Work Phone: [phone] [place], [place] [address]Nrzhgblbmg53-01-7797 08:59-0400Respiratory rate16 /minManju Solo MD Work Phone: [facility] CenterEhfwynjzsd27-06-2023 08:59-3265WmO4% (BldA) [Mass fraction]94 %Manju Solo MD Work Phone: [facility] CenterSydsivtgpa92-84-0204 08:59-0400Systolic blood kysinsdu115 mm[Hg]Manju Solo MD Work Phone: [phone] [place], [place] [address]Awuxfnopfg62-90-2188 11:25-0400Body wpjcmi241.1 cmBarbara Peters APRN-COOK ENCHILADA Work Phone: [facility]05-15-2025 11:25-0400Body mass index (BMI) [Ratio]30.79 kg/z3KcnfybBarbara Peters APRN-COOK ENCHILADA Work Phone: [facility]05-15-2025 11:25-0400Body zkezccmhord10.9 [degF]Barbara Peters APRN-COOK ENCHILADA Work Phone: [facility]05-15-2025 11:25-0400Body axjfho42.92 kgBarbara Peters INSERT OPERATOR-COOK ENCHILADA Work Phone: [facility] [employer] Fmcnnk95-07-0402 11:25-0400Diastolic blood pwyjqjlr35 mm[Hg]Barbara Peters INSERT OPERATOR-COOK ENCHILADA Work Phone: [facility]05-15-2025 11:25-0400Heart rate 85 /minBrliz Peters INSERT OPERATOR-COOK ENCHILADA Work Phone: [facility]05-15-2025 11:25-0400 Respiratory rate18 /minBarbara ePters INSERT OPERATOR-COOK ENCHILADA Work Phone: [facility]05-15-2025 11:25-6428IuK3% (BldA) [Mass fraction]96 %Barbara Peters INSERT OPERATOR-COOK ENCHILADA Work Phone: [facility] [employer] Lhgcmh12-22-3048 11:25-0400Systolic blood wijgteeo478 mm[Hg]Barbara Peters INSERT OPERATOR-COOK ENCHILADA Work Phone: [facility] [employer] Xmimsz86-45-3895 15:03-0400Body szcidq109.1 cmStajosep Palacios INSERT OPERATOR-COOK ENCHILADA Work Phone: [facility]05-14-2025 15:03-0400Body mass index (BMI) [Ratio]30.95 kg/m6Dspugmerick Palacios INSERT OPERATOR-COOK ENCHILADA Work Phone: [facility]05-14-2025 15:03-0400Body uxsbyy43.37 kgSterick Palacios INSERT OPERATOR-COOK ENCHILADA Work Phone: [facility] [employer] Jtmewk39-35-7894 15:03-0400Diastolic blood xyhswztc67 mm[Hg]Joannajosep Palacios INSERT OPERATOR-COOK ENCHILADA Work Phone: [facility]05-14-2025 15:03-0400Heart rate 90 /minStajosep Palacios INSERT OPERATOR-COOK ENCHILADA Work Phone: [facility]05-14-2025 15:03-1710PkO9% (BldA) [Mass fraction]97 %Joanna Palacios INSERT OPERATOR-COOK ENCHILADA Work Phone: [facility] [employer] Eyhhmq88-27-5572 15:03-0400Systolic blood mm[Hg]Joanna Palacios INSERT OPERATOR-COOK ENCHILADA Work Phone: [facility] [employer] Mawjhl86-87-6738 11:27-0400Body .1 cmMatthew Nienberg PA Work Phone: [facility] [employer] Lmdmsz49-87-3958 11:27-0400Body mass index (BMI) [Ratio]31.62 kg/v7Molhgrv Nienberg PA Work Phone: [facility] [employer] Glaaqv09-64-9801 11:27-0400Body .18 kgMatthew Nienberg PA Work Phone: [facility] [employer] Ckfpqb22-41-3377 11:27-0400Diastolic blood ntlshtwi60 mm[Hg]Radha Kahn PA Work Phone: [facility] [employer] Eqeoiw11-77-2259 11:27-0400Heart rate 87 /minMatthew Nienberg PA Work Phone: [facility] [employer] Hakspc82-66-2607 11:27-0400 Respiratory rate16 /minMatthew Nienberg PA Work Phone: [facility] [employer] Mwculb58-80-1702 11:27-4769BoH1% (BldA) [Mass fraction]98 %Radha Kahn PA Work Phone: [facility] [employer] Fgpvnb09-57-0683 11:27-0400Systolic blood boeyqjde256 mm[Hg]Radha Kahn PA Work Phone: [facility] [employer] Afryor57-92-3920 11:46-0400Body ouwmwi073.1 cmBarbara Peters INSERT OPERATOR-COOK ENCHILADA Work Phone: [facility] [employer] Sqrrjq31-87-4113 11:46-0400Body mass index (BMI) [Ratio]31.62 kg/k5KczlotBarbara Peters INSERT OPERATOR-COOK ENCHILADA Work Phone: [facility]04-17-2025 11:46-0400Body hzbyqtdwlam91.1 [degF]Barbara Peters INSERT OPERATOR-COOK ENCHILADA Work Phone: [facility]04-17-2025 11:46-0400Body nhwjza99.18 kgBarbara Peters APRN-COOK ENCHILADA Work Phone: [facility]04-17-2025 11:46-0400Diastolic blood jomprgnb88 mm[Hg]Barbara Peters INSERT OPERATOR-COOK ENCHILADA Work Phone: [facility]04-17-2025 11:46-0400Heart rate 84 /minBarbara Peters INSERT OPERATOR-COOK ENCHILADA Work Phone: [facility]04-17-2025 11:46-0400 Respiratory rate18 /minBarbara Peters APRN-COOK ENCHILADA Work Phone: [facility]04-17-2025 11:46-2327IwG9% (BldA) [Mass fraction]97 %Barbara Peters APRN-COOK ENCHILADA Work Phone: [facility]04-17-2025 11:46-0400Systolic blood wnuzllrr773 mm[Hg]Barbara Peters APRN-COOK ENCHILADA Work Phone: [facility]03-26-2025 09:50-0400Body zyyupw726.1 cmToni Bansal MD Work Phone: [facility]03-26-2025 09:50-0400 Body mass index (BMI) [Ratio]32.08 kg/w6CnzzznlToni Bansal MD Work Phone: [facility]03-26-2025 09:50-0400 Body euvfnr00.45 kgToni Bansal MD Work Phone: [facility]02-04-2025 10:11-0500 Body .[address]02-04-2025 10:11-0500Body mass index (BMI) [Ratio]32.12 kg/m2Pmh [address] [place], [place] 234[address]02-04-2025 10:11-0500 Body msmhpa31.[address] [place], [place] 2341811-27-2024 09:41-0500Body height 165.1 cmToni Bansal MD Work Phone: [phone] [place], [place] 7983411-27-2024 09:41-0500 Body mass index (BMI) [Ratio]32.22 kg/p1GidjbqqToni Bansal MD Work Phone: [phone] [place], [place] 8732011-27-2024 09:41-0500 Body rcgejy42.82 Emilie Bansal MD Work Phone: [phone] [place], [place] 87[address]011-13-2024 14:46-0500 Body benjay108.[address]11-13-2024 14:46-0500Body mass index (BMI) [Ratio]30.62 kg/m2Pmh [address] [place], [place] 2341811-13-2024 14:46-0500 Body .[address] [place], [place] 2341810-16-2024 10:00-0400Body height 165.1 cmToni Bansal MD Work Phone: [phone] [place], [place] 8732010-16-2024 10:00-0400 Body mass index (BMI) [Ratio]31.14 kg/f6ThcoferToni Bansal MD Work Phone: [phone] [place], [place] 8732010-16-2024 10:00-0400 Body moynxx27.87 Emilie Bansal MD Work Phone: [phone] [place], [place] 8732010-10-2024 13:46-0400 Body spuebe505.4 cmBarbara SAMSON Work Phone: [facility]10-10-2024 13:46-0400Body mass index (BMI) [Ratio]30.64 kg/n9KrxhsgBarbara SAMSON Work Phone: [facility]10-10-2024 13:46-0400Body lymcrlybdvf27.01 [degF]Barbara Peters INSERT OPERATOR-COOK ENCHILADA Work Phone: [facility]10-10-2024 13:46-0400Body fyfdaq37.83 kgBarbara Peters INSERT OPERATOR-COOK ENCHILADA Work Phone: [facility]10-10-2024 13:46-0400Diastolic blood xfdifluw59 mm[Hg]Barbara Peters INSERT OPERATOR-COOK ENCHILADA Work Phone: [facility]10-10-2024 13:46-0400Heart rate 76 /minBarbara Peters INSERT OPERATOR-COOK ENCHILADA Work Phone: [facility]10-10-2024 13:46-9755KhJ5% (BldA) [Mass fraction]96 %Barbara Peters INSERT OPERATOR-COOK ENCHILADA Work Phone: [facility]10-10-2024 13:46-0400Systolic blood nytygobd704 mm[Hg]Barbara Peters INSERT OPERATOR-COOK ENCHILADA Work Phone: [facility]10-03-2024 13:30-0400Body gfvegwjspsg11.5 [degF]Toni Bansal MD Work Phone: [facility]10-03-2024 13:30-0400 Diastolic blood lgrslofy83 mm[Hg]Toni Bansal MD Work Phone: [phone]10-03-2024 13:30-0400 Respiratory rate16 /minToni Bansal MD Work Phone: [phone]10-03-2024 13:30-0400 SaO2% (BldA) [Mass fraction]96 %Toni Bansal MD Work Phone: [phone]10-03-2024 13:30-0400 Systolic blood cbvdoibz044 mm[Hg]Toni Bansal MD Work Phone: [phone]10-03-2024 13:14-0400 Heart rate86 /minToni Bansal MD Work Phone: [facility]10-03-2024 06:57-0400 Body .1 cmToni Bansal MD Work Phone: [facility]10-03-2024 06:57-0400 Body mass index (BMI) [Ratio]31.59 kg/m7TwjhugaToni Bansal MD Work Phone: [facility]10-03-2024 06:57-0400 Body sidqzc09.1 kgToni Bansal MD Work Phone: [facility]08-22-2024 13:10-0400 Body beahex856.4 cmNilaliz Peters INSERT OPERATOR-COOK ENCHILADA Work Phone: [facility]08-22-2024 13:10-0400Body mass index (BMI) [Ratio]31.24 kg/h9YgvyngBarbara Peters INSERT OPERATOR-COOK ENCHILADA Work Phone: [facility]08-22-2024 13:10-0400Body cwcjousquzs28.1 [degF]Barbaraliz Peters INSERT OPERATOR-COOK ENCHILADA Work Phone: [facility]08-22-2024 13:10-0400Body .46 kgNilaliz Peters INSERT OPERATOR-COOK ENCHILADA Work Phone: [facility]08-22-2024 13:10-0400Diastolic blood wcqemgsn80 mm[Hg]Barbara Peters INSERT OPERATOR-COOK ENCHILADA Work Phone: [facility]08-22-2024 13:10-0400Heart rate 100 /minNilaiana Fran INSERT OPERATOR-COOK ENCHILADA Work Phone: [facility]08-22-2024 13:10-0400 Respiratory rate18 /minBrliz Fran INSERT OPERATOR-COOK ENCHILADA Work Phone: [facility]08-22-2024 13:10-1025DdI7% (BldA) [Mass fraction]97 %Barbara Peters APRN-ALEKSANDRA Work Phone: [facility]08-22-2024 13:10-0400Systolic blood whpdoxlo131 mm[Hg]Barbara Peters APRN-COOK ENCHILADA Work Phone: [facility] Crpeps25-42-2926 11:42-0400Body yihbvy059.4 cmBarbara SAMSON Work Phone: [facility] Mffasx28-27-3987 11:42-0400Body mass index (BMI) [Ratio]31.7 kg/c3MhjbchBarbara Peters APRN-ALEKSANDRA Work Phone: [facility]07-18-2024 11:42-0400Body exvqgcljluh12.2 [degF]Barbara Peters APRN-ALEKSANDRA Work Phone: [facility]07-18-2024 11:42-0400Body mwukto84.73 kgBarbara Peters APRN-ALEKSANDRA Work Phone: [facility] Fungad68-56-0299 11:42-0400Diastolic blood mm[Hg]Barbara Peters APRN-ALEKSANDRA Work Phone: [facility]07-18-2024 11:42-0400Heart rate 77 /minBarbara SAMSON Work Phone: [facility]07-18-2024 11:42-0400 Respiratory rate18 /minBrliz Peters APRN-COOK ENCHILADA Work Phone: [facility] Ixkcbb97-65-5029 11:42-2475GtS0% (BldA) [Mass fraction]98 %Barbara Peters APRN-COOK ENCHILADA Work Phone: [facility] Oljogp88-26-2061 11:42-0400Systolic blood hihrlyoj310 mm[Hg]Barbara Peters APRN-COOK ENCHILADA Work Phone: [facility] Tguupq55-57-0905 12:37-0400Blood Pressure LocationJENNIFER KADE [facility]06-27-2024 12:37-0400Body jaegdzcldfi29.8 [degF]LORA BRAUN [facility]06-27-2024 12:37-0400Diastolic blood elsqnwpt86 mm[Hg]LORA KADE [facility]06-27-2024 12:37-0400Heart rate64 /minJENNIFER KADE [facility]06-27-2024 12:37-0400Respiratory rate18 /minJENNIFER KADE [facility]06-27-2024 12:37-0400Systolic blood urrodypj931 mm[Hg]LORA BRAUN [facility]06-21-2024 08:40-0400Body .4 cmBarbara Peters APRN-COOK ENCHILADA Work Phone: [facility]06-21-2024 08:40-0400Body mass index (BMI) [Ratio]33.06 kg/j7Kjrtzd Fran INSERT OPERATOR-COOK ENCHILADA Work Phone: [facility]06-21-2024 08:40-0400Body nrvjrjextpu68.81 [degF]Barbara Peters INSERT OPERATOR-COOK ENCHILADA Work Phone: [facility]06-21-2024 08:40-0400Body oootqp42.45 kgBarbara Fran INSERT OPERATOR-COOK ENCHILADA Work Phone: [facility]06-21-2024 08:40-0400Diastolic blood mm[Hg]Barbara Peters INSERT OPERATOR-COOK ENCHILADA Work Phone: [facility] Twsuuh97-04-1848 08:40-0400Heart rate 71 /minBrliz Peters INSERT OPERATOR-COOK ENCHILADA Work Phone: [facility] [employer] Stgeup22-22-6277 08:40-0400 Respiratory rate20 /minBrliz Peters INSERT OPERATOR-COOK ENCHILADA Work Phone: [facility] Fjrsee72-21-5633 08:40-8708FeG2% (BldA) [Mass fraction]97 %Barbara Peters INSERT OPERATOR-COOK ENCHILADA Work Phone: [facility] Axcvto20-93-5244 08:40-0400Systolic blood uiuryheq560 mm[Hg]Barbara Peters INSERT OPERATOR-COOK ENCHILADA Work Phone: [facility] [employer] Dzjeya35-41-5594 15:53-0400Body yamflc683.4 cmBarbara Peters INSERT OPERATOR-COOK ENCHILADA Work Phone: [facility] [employer] Gmmoja42-82-2653 15:53-0400Body mass index (BMI) [Ratio]33.56 kg/a9KqoujlBarbara Peters INSERT OPERATOR-COOK ENCHILADA Work Phone: [facility] Vvhtjx34-15-0219 15:53-0400Body msqqugjahsv67.01 [degF]Barbara Peters INSERT OPERATOR-COOK ENCHILADA Work Phone: [facility] [employer] Mlvbqw53-62-4332 15:53-0400Body uldjqj17.81 kgBarbara Peters INSERT OPERATOR-COOK ENCHILADA Work Phone: [facility] [employer] Fdswuk60-92-8177 15:53-0400Diastolic blood pamrsqgv14 mm[Hg]Barbara Peters INSERT OPERATOR-COOK ENCHILADA Work Phone: [facility] Jopsie39-66-0756 15:53-0400Heart rate 91 /minBrliz Peters INSERT OPERATOR-COOK ENCHILADA Work Phone: [facility] Ikjuhd04-09-3370 15:53-0400 Respiratory rate20 /minBrliz Peters INSERT OPERATOR-COOK ENCHILADA Work Phone: [facility]05-15-2024 15:53-7686DhJ3% (BldA) [Mass fraction]96 %Barbara Peters APRN-COOK ENCHILADA Work Phone: [facility]05-15-2024 15:53-0400Systolic blood oerlrfhr711 mm[Hg]Barbara Peters APRN-COOK ENCHILADA Work Phone: [facility]04-15-2024 15:08-0400Body .[facility] 15:08-0400Body mass index (BMI) [Ratio]33.6 kg/u1CtsuwwhwhMer[facility]04-15-2024 15:08-0400Body eglgdc89.62 kgMer[facility]04-15-2024 15:08-0400Diastolic blood bvgtcpgi81 mm[Hg][facility] 12-29-2023 15:08-0400Heart rate81 /minMer[facility] 12-29-2023 15:08-0824ZzA6% (BldA) [Mass fraction]92 %[facility]04-15-2024 15:08-0400Systolic blood ykgzugbo564 mm[Hg][facility]03-12-2024 13:43-0400Blood Pressure LocationJENNIFER KADE [facility]03-12-2024 13:43-0400Body sodjrxjobcr14.96 [degF]LORA BRAUN [facility]03-12-2024 13:43-0400Diastolic blood uzrofndh71 mm[Hg]LORA KADE [facility]03-12-2024 13:43-0400Heart rate82 /minJENNIFER KADE [facility]03-12-2024 13:43-0400Systolic blood fdxqfenu453 mm[Hg]LORA BRAUN [facility]10-01-2023 10:10-0400Body mozayu343.1 Cole [place] Other noYoBucko Other 10-01-2023 10:10-0400Body mass index (BMI) [Ratio] 29.95 kg/s3Aktvrc Leonie Other [employer] Other 10-01-2023 10:10-0400Body hpizrfagoxp53.3 [degF]Maria Isabel Leonie Other [facility] ? Other 10-01-2023 10:10-0400Body ovddnr10.65 kgNickolaskristin Leonie Other [facility] ? Other 10-01-2023 10:10-0400Diastolic blood kksufrnb33 mm[Hg] Maria Isabel Leonie Other [facility] ? Other 10-01-2023 10:10-9936UhL1% (BldA) [Mass fraction]97 % Maria Isabel Leonie Other [facility] ? Other 10-01-2023 10:10-0400Systolic blood loonbwck418 mm[Hg] Maria Isabel Leonie Other [facility] Other 09-18-2023 10:05-0400Body banvlx260.1 Cole Garciamond Other [facility] ? Other 09-18-2023 10:05-0400Body mass index (BMI) [Ratio] 30.78 kg/s0Zttzaqrosa Hadley Other [facility] Other 09-18-2023 10:05-0400Body noucashefhu87.8 [degF]Maria Isabel Garciamond Other [facility] ? Other 09-18-2023 10:05-0400Body .92 kgRejirosa Hadley Other [facility] ? Other 09-18-2023 10:05-0400Diastolic blood ttklfsjy68 mm[Hg] Maria Isabel Garciamond Other [facility] ? Other 09-18-2023 10:05-0400Respiratory rate18 /minMaria Isabel Hadley Other [facility] ? Other 09-18-2023 10:05-4911WcP5% (BldA) [Mass fraction]96 % Maria Isabel Garciamond Other [employer] ? Other 09-18-2023 10:05-0400Systolic blood biijywem464 mm[Hg] Maria Isabel Garciamond Other [employer] ? Other 04-10-2023 14:30-0400Body igtwyq528.1 [facility] Other [employer] Other 04-10-2023 14:30-0400Body mass index (BMI) [Ratio]31.7 kg/b1SxjgjAtrium Health Other [employer] Other 04-10-2023 14:30-0400Body zozksm78.41 kgAtrium Health Other [employer] ? Other 04-10-2023 14:30-0400Diastolic blood ezksjedt47 mm[Hg] Caitlyn Long Other [place] [employer] Other 04-10-2023 14:30-1125XnQ8% (BldA) [Mass fraction]97 % Caitlyn Long Other [place] [employer] Other 04-10-2023 14:30-0400Systolic blood qcyyoqgg367 mm[Hg] Caitlyn Long Other [place] [employer] Other 03-13-2023 09:52-0400Body .6 [degF]Mariusz Ro [facility]03-13-2023 09:52-0400 Diastolic blood mm[Hg]Mariusz Ro [facility]03-13-2023 09:52-0400Heart rate89 /Mayur Ro [facility]03-13-2023 09:52-0400 Respiratory rate18 /minMariusz Ro [facility]03-13-2023 09:52-0970IsK4% (BldA) [Mass fraction]93 %Mariusz Ro [facility]03-13-2023 09:52-0400 Systolic blood mfevffjk684 mm[Hg]Mariusz Ro [facility]03-08-2023 09:15-0500Body uutong194.1 Cole Hadley Other [place] [employer] Other 03-08-2023 09:15-0500Body mass index (BMI) [Ratio] 31.45 kg/l5Avkeqk Leonie Other [facility] [employer] Other 03-08-2023 09:15-0500Body xgrroggaiug29.5 [degF]Maria Isabel Hadley Other [facility] [employer] Other 03-08-2023 09:15-0500Body fkmtze98.73 kgMaria Isabel Hadley Other [facility] [employer] Other 03-08-2023 09:15-0500Respiratory rate18 /minMaria Isabel Hadley Other [facility] [employer] Other 03-08-2023 09:15-1111JuP1% (BldA) [Mass fraction]96 % Maria Isabel Hadley Other [place] [employer] Other 03-07-2023 11:09-0500Blood Pressure LocationJENNIFER KADE [facility]03-07-2023 11:09-0500Diastolic blood qclvxshy86 mm[Hg]LORA KADE [facility]03-07-2023 11:09-0500Heart rate80 /minJENNIFER KADE [facility]03-07-2023 11:09-0500Systolic blood mm[Hg]LORA KADE [facility]10-10-2022 14:30-0400Body pymlfm749.1 cmCaitlyn Long Other [facility] [employer] Other 10-10-2022 14:30-0400Body mass index (BMI) [Ratio] 29.93 kg/k2LuhjhCaitlyn Long Other [employer] Other 10-10-2022 14:30-0400Body vjtxhdnnoad39.8 [degF]Caitlyn Long Other [employer] ? Other 10-10-2022 14:30-0400Body lbfilm07.6 kgCaitlyn Long Other [employer] Other 10-10-2022 14:30-0400Diastolic blood deuifyfh98 mm[Hg] Caitlyn Long Other [employer] Other 10-10-2022 14:30-5099SiE8% (BldA) [Mass fraction]97 % Caitlyn Long Other [employer] ? Other 10-10-2022 14:30-0400Systolic blood aurtvchi931 mm[Hg] Caitlyn Long Other [employer] ? Other 08-05-2022 08:53-0400Blood Pressure LocationPatrick Cassatt [facility] 08-05-2022 08:53-0400Diastolic blood gyzkzqac53 mm[Hg] Justin YI [facility] 08-05-2022 08:53-0400Heart rate74 /minPatrick Cassatt [facility] 08-05-2022 08:53-0400Respiratory rate16 /minPadalia YI [facility] 08-05-2022 08:53-0400Systolic blood nndunzty098 mm[Hg] Justin YI [facility] 07-17-2022 14:00-0400Body cvselqusvuq59.42 [degF][facility]07-17-2022 14:00-0400Diastolic blood mm[Hg][facility]07-17-2022 14:00-0400Heart rate68 /minHol[facility]07-17-2022 14:00-0400Mean blood kuuvgdxh64 mm[Hg][facility]07-17-2022 14:00-0400Respiratory rate11 /minHol[facility] System07-17-2022 14:00-3482KgX5% (BldA) [Mass fraction]97 %[facility]07-17-2022 14:00-0400Systolic blood pressure 126 mm[Hg][facility]07-17-2022 01:00-0400Body muxxwsqzkik62.6 [degF][facility]07-17-2022 01:00-0400Diastolic blood dmiwknws10 mm[Hg][facility]07-17-2022 01:00-0400Mean blood mm[Hg][facility]07-17-2022 01:00-0400Respiratory rate11 /[facility] 01:00-9819MgD8% (BldA) [Mass fraction]97 %[facility]07-17-2022 01:00-0400Systolic blood yhwlccux615 mm[Hg][facility]07-17-2022 00:00-0400Body fkovyrwbmtg49.24 [degF][facility]07-17-2022 00:00-0400Diastolic blood bmyeykxe14 mm[Hg][facility]07-17-2022 00:00-0400Heart rate78 /min[facility]07-17-2022 00:00-0400Mean blood ygnzvfiz52 mm[Hg] [facility]07-17-2022 00:00-0400Respiratory rate 12 /minHol[facility] Health System07-17-2022 00:00-0400Systolic blood mm[Hg][facility]07-16-2022 22:55-0400Blood Pressure LocationHolzer Health System 03-30-2022 21:24-0400Heart rate70 /minHol[facility] Health System07-16-2022 21:24-0400Respiratory rate18 /minHol[facility] Health System05-12-2022 18:00-0400[facility]05[facility]12-2022 18:00-0400Promise to ReturnL[facility]05-12-2022 15:52-0400Body slkuqahfewg36.06 [degF][facility]05-12-2022 15:52-0400Diastolic blood bsikrqqh31 mm[Hg] [facility]05-12-2022 15:52-0400Heart rate68 /min [facility]05-12-2022 15:52-0400Mean blood pressure 98 mm[Hg][facility]05-12-2022 15:52-9112WpJ6% (BldA) [Mass fraction]94 %[facility]05-12-2022 15:52-0400Systolic blood mm[Hg][facility]05-12-2022 15:39-0959UsZ0% (BldA) [Mass fraction]95 %[facility]05-12-2022 14:54-0400Body phjzhajzrzq35.88 [degF][facility]05-12-2022 14:54-0400Diastolic blood rofflaxx54 mm[Hg][facility]05-12-2022 14:54-0400Heart rate64 /minL[facility]05-12-2022 14:54-0400Mean blood mm[Hg][facility]05-12-2022 14:54-0400 Respiratory rate15 /minL[facility]05-12-2022 14:54-7792PjL1% (BldA) [Mass fraction]95 %[facility]05-12-2022 14:54-0400Systolic blood mm[Hg][facility]05-12-2022 14:45-0400Diastolic blood wqvwpujn46 mm[Hg][facility]05-12-2022 14:45-0400Heart rate65 /minL[facility]05-12-2022 14:45-0400Mean blood xczyjvdg584 mm[Hg][facility]05-12-2022 14:45-0400Respiratory rate13 /minL[facility]05-12-2022 14:45-0400Systolic blood mm[Hg][facility]05-12-2022 14:40-0400Body dgoidzxdvzc39.16 [degF][facility] 01-24-2022 14:40-0400Mean blood fvemsblq50 mm[Hg][facility]05-12-2022 14:40-0400Respiratory rate16 /minL[facility]05-12-2022 14:29-0400Body qmdbrrolydy17.44 [degF][facility] CenterComment on above:Result Comment: warm blanket ysdjgoo49-19-6933 11:00-0400Heart rate74 /min[facility]05-12-2022 09:39-0400Heart rate69 /min[facility]05-12-2022 08:30-0400Heart rate68 /min[facility]05-12-2022 06:07-0400Body yaygnlthtws85.7 [degF][facility]05-02-2022 12:45-0400Body tajvtz694.1 Cole Hadley Other [employer] Other 05-02-2022 12:45-0400Body mass index (BMI) [Ratio] 30.78 kg/d7AdphjgMaria Isaebl Hadley Other [employer] Other 05-02-2022 12:45-0400Body ykmzcriyjeh04.3 [degF]Maria Isabel Hadley Other [employer] ? Other 05-02-2022 12:45-0400Body vsioyx80.92 kgMaria Isabel Hadley Other [employer] Other 05-02-2022 12:45-0400Diastolic blood yjyidloa82 mm[Hg] Maria Isabel Hadley Other [employer] ? Other 05-02-2022 12:45-0400Respiratory rate18 /minMaria Isabel Hadley Other [employer] Other 05-02-2022 12:45-3995PgQ4% (BldA) [Mass fraction]98 % Maria Isabel Hadley Other [employer] Other 05-02-2022 12:45-0400Systolic blood ttlygstq782 mm[Hg] Maria Isabel Hadley Other [employer] ? Other 10-28-2021 11:30-0400Body .1 cmSmika Donald Other [employer] Other 10-28-2021 11:30-0400Body mass index (BMI) [Ratio] 28.79 kg/x2Btffjycutdora Donald Other [employer] ? Other 10-28-2021 11:30-0400Body zsezourxbzn68.4 [degF] Kristina Donald Other [employer] Other 10-28-2021 11:30-0400Body liecoy51.47 kgStdora Donald Other [employer] ? Other 10-28-2021 11:30-0400Respiratory rate18 /minSmika Donald Other [employer] ? Other 10-28-2021 11:30-7827BaL7% (BldA) [Mass fraction]98 % Kristina Donald Other [employer] Other Encounters Encounter DateEncounter TypeCare ProviderFacilityStart: 34-94-6008lxhkmvqryj LORA E PERRYFacility:JAMIE Venegastart: 07-12-2025 End: 27-67-1990Pjovja outpatient visit 25 minutesClaudio Trujillo MD Work Phone: [facility] Pulmonary/Sleep MedicineComment on above:LILO (obstructive sleep apnea) (Primary Dx); Difficulty using continuous positive airway pressure (CPAP) nasal mask; Iron deficiencyStart: 07-12-2025 End: 53-92-3644rwczsheosqZNZCF CASSANDRAHarrison [facility] Hospital Ambulatory PPGStart: 66-95-2090Tkaql Myers [facility] Start: 07-04-2025 End: 49-05-3245Azeukz outpatient visit 15 minutesFahadmojgan Burciaga DO Work Phone: [facility] Internal Medicine - Family MedicineComment on above:Overweight (Primary Dx); BMI 29.0-29.9,adult; Essential hypertension; Obesity (BMI 30-39.9); Other migraine without status migrainosus, not intractableStart: 07-04-2025 End: 44-96-8668ponnhoitruROFDIUVA Medical Center Ambulatory PPGStart: 07-04-2025 End: 97-88-7694Sxnbsnbvm department patient visitAultman Hospitaltart: 06-08-2025 End: 84-82-2028Bqtedy outpatient visit 15 minutesToni Bansal MD Work Phone: [facility] HospitalComment on above:Decreased sense of smell (Primary Dx); Chronic ethmoidal sinusitisStart: 06-08-2025 End: 02-40-6430rebqfcxxqqDDHLDIU D RODRIGUEZSelect [facility] Comment on above:Migraine without aura, not intractable, without status migrainosus; Allergic rhinitis, unspecifiedStart: 06-03-2025 End: 63-40-0527Xrbksif encounter statusGera Bijan Burciaga DO Work Phone: [facility] SystemStart: 06-03-2025 End: 42-92-2556Nfwqielv preventive med est patient 40-64yrsDennis G Furlong DO Work Phone: [facility] Internal Medicine - Family MedicineComment on above:Well adult exam (Primary Dx); Migraine without aura, not intractable, without status migrainosus; Obesity (BMI 30-39.9); Mild intermittent asthma without complicationStart: 06-03-2025 End: 68-07-2570urrslgigerBQOSWLCommunity Memorial Hospital Ambulatory PPGStart: 67-26-2889Oibxaccco for general adult medical examination without abnormal findingsCommunity Memorial Hospital Ambulatory PPGStart: 05-30-2025 End: 78-20-7536mnhmjaqzahCbmns M. LueFacility:FTMCStart: 05-23-2025 End: 29-59-2386Lvbpwmgth to same day surgery waverlyNohemi Lopez MDSurgery Center The Jewish HospitalStart: 05-23-2025 End: 47-97-7468gtwxonfckhPhlbte Furmanuel DO Work Phone: [facility] Work Phone: Start: 05-20-2025 End: 23-56-4844Iuutwddbg department patient visitRadha Farrell Facility:[facility]tart: 05-17-2025 End: 22-41-4803Euvsyh-up encounterClaudio Trujillo MD Work Phone: [facility] SLEEP MEDICINEComment on above: Iron and TIBC, FerritinStart: 60-44-7065uziyrgtjwnIZYEA E DUNNPorter Medical CenterDylan [facility] Hospitaltart: 05-03-2025 End: 36-50-8934AdwnnrPyip Cooper CMAProMedica Physicians Internal Medicine - Family MedicineComment on above:Osteoporosis without current pathological fracture, unspecified osteoporosis typeStart: 04-21-2025 End: 35-32-1317Jbbzttemt encounterClaudio Trujillo MD Work Phone: [facility] MEDICINEStart: 04-13-2025 End: 63-17-0985Xmjnbsmhc encounterKe Zurita CNAProMedica Physicians Internal Medicine - Family MedicineStart: 04-07-2025 End: 43-89-0400Kuwjjrli SupportClaudio Trujillo MD Work Phone: [facility] - Sleep Disorders Comment on above:LILO (obstructive sleep apnea)Start: 03-31-2025 End: 66-66-9032Zvabuxatr department patient visitAultman Hospitaltart: 03-11-2025 End: 01-78-1612Yuaeheams encounterClaudio Trujillo MD Work Phone: [facility] - Sleep DisordersComment on above:Sleep Lab (CPAP)Start: 03-08-2025 End: 46-87-1863Ijysjf outpatient visit 25 minutesAbmustapha Trujillo MD Work Phone: [facility] Pulmonary/Sleep MedicineComment on above:LILO (obstructive sleep apnea) (Primary Dx); Difficulty with CPAP use; BMI 30.0-30.9,adultStart: 03-08-2025 End: 60-49-0837zburpttwwyLOIWB E [facility] Ambulatory PPGStart: 03-08-2025 End: 76-70-0052phqapvkyfbGCMAIXXF E PERRYFacility:EU BellevueStart: 03-08-2025 End: 95-04-6467Yfwnhvu encounter procedureLORA BRAUN [facility] start: 32-23-2593irkostivdaBPJUERFB PERRYFacility:EU BellevueStart: 03-02-2025 End: 02-10-1827Tzjwgc Zakia Solo MD Work Phone: noms ENDOCRINOLOGYStart: 03-02-2025 End: 14-61-1529Sylvovleyda Solo MD Work Phone: [facility] ENDOCRINOLOGYStart: 03-02-2025 End: 41-26-8113Xfobqx outpatient visit 25 minutesAhmad F Germania MD Work Phone: [facility] ENDOCRINOLOGYComment on above:Graves' disease (Primary Dx); Hyperthyroidism ; Multinodular goiterStart: 03-02-2025 End: 83-61-3965foablqfoeuEYCYNYaima Moreno AvailableStart: 02-06-2025 End: 93-57-4130IhprwlYgkpde L Rauch INSERT OPERATOR-COOK ENCHILADA Work Phone: [facility] Internal Medicine - Family MedicineComment on above:Essential (primary) hypertensionStart: 01-27-2025 End: 09-56-2781Sdvkwsxadilv care manage srvc 14 day dischargeBarbara Peters INSERT OPERATOR-COOK ENCHILADA Work Phone: [facility] Internal Medicine - Family MedicineComment on above:Community acquired pneumonia of right upper lobe of lung (Primary Dx); Hiatal hernia; Obstructive sleep apneaStart: 01-27-2025 End: 18-30-5332sphsixywiySMDEDYContra Costa Regional Medical Center Ambulatory PPGStart: 01-26-2025 End: 91-97-3892Hnhfya outpatient new 45 minuteserick Jackson Lucioknickerbocker hospital INSERT OPERATOR-COOK ENCHILADA Work Phone: [facility] Pulmonary/Sleep MedicineComment on above:LILO (obstructive sleep apnea) (Primary Dx); BMI 30.0-30.9,adult; Obesity (BMI 30-39.9); Difficulty with CPAP useStart: 01-26-2025 End: 13-91-6677xhmgoevcziXUMHKDPearl [facility] Ambulatory PPGStart: 01-17-2025 End: 85-98-7072kipmagcwlaVHUNYXCentral [facility] HospitalStart: 01-13-2025 End: 39-22-2072Vvlrud outpatient new 30 minutesRadha MENDOZA Work Phone: [facility] - Pain Management ClinicComment on above:Thoracic spondylosis without myelopathy (Primary Dx) Start: 01-13-2025 End: 22-53-0982ugjmcjvfmjVKDOIII S NIENBERGMercy Health – The Jewish Hospitaltart: 12-31-2024 End: 96-85-9722wbpvwwsludUVCHXC L RAUCHMarion Hospital HospitalStart: 12-30-2024 End: 80-61-4397Bjzjoa outpatient visit 15 minutesBarbara Peters INSERT OPERATOR-COOK ENCHILADA Work Phone: [facility] Internal Medicine - Family MedicineComment on above:Mid back pain on left side (Primary Dx); Neck painStart: 12-30-2024 End: 92-14-5670eepjekleziFXJOUX L RAUCHHarrison Community Hospital Ambulatory PPGStart: 12-13-2024 End: 69-12-2247sbpvbcchkhXdvzsdh Rajwinder [facility] Work Phone: Start: 12-13-2024 End: 53-61-4905Padfvwig ReferredMiami Valley Hospital Ctr- LAB Path Spec Lisa HospStart: 12-08-2024 End: 32-15-1602Aumsoc outpatient visit 15 minutesToni Bansal MD Work Phone: uh [facility] Health CenterComment on above:Chronic ethmoidal sinusitis (Primary Dx); Decreased sense of smell; Nasal polypStart: 12-08-2024 End: 52-57-5289rjxezcpfmxSYBGPJU D [facility] Ambulatory Start: 12-04-2024 End: 62-19-4553TxtohmBtrsvo L Rauch INSERT OPERATOR-COOK ENCHILADA Work Phone: [facility] Internal Medicine - Family MedicineComment on above:Migraine without aura, not intractable, without status migrainosusStart: 12-02-2024 End: 13-79-0099wllufiymghMZNUDN L RAUCHProBaylor Scott & White Medical Center – Budatart: 11-22-2024 End: 61-87-7544Mwwysz OnlyBarbara Peters INSERT OPERATOR-COOK ENCHILADA Work Phone: [facility] Internal Medicine - Family MedicineComment on above:Encounter for screening mammogram for malignant neoplasm of breast (Primary Dx)Start: 10-20-2024 End: 23-09-9175Hdbcsryrim and management of inpatientJOJP [facility] Hospitaltart: 10-19-2024 End: 94-18-8174cqfhbklqhfHge Pat Phone Call Provider [address] [place] [address] - Pre AdmitStart: 10-19-2024 End: 27-14-0046owpkmrsvykRSFPIH L RAUCHMercy Health – The Jewish Hospitaltart: 09-09-2024 End: 94-55-3231HjnyudOvxzmv L Rauch INSERT OPERATOR-COOK ENCHILADA Work Phone: [facility] Internal Medicine - Family MedicineComment on above:Allergic rhinitis, unspecifiedStart: 08-11-2024 End: 40-43-8609Lykbzt follow up visit related to original Waleska Bansal MD Work Phone: uh [facility] Health CenterComment on above:Chronic ethmoidal sinusitis (Primary Dx); Decreased sense of smellStart: 08-11-2024 End: 12-43-8328irwpstvinwDTYTUZZ D [facility] Start: 08-03-2024 End: 73-72-5679Ofsiuguhh encounterBemeliza Herr CMAPro[facility] Internal Medicine - Family MedicineStart: 08-02-2024 End: 93-82-0679Amgdnaamb encounterClaudio Trujillo MD Work Phone: [facility] Pulmonary/Sleep MedicineStart: 07-28-2024 End: 99-68-9887Ykyodpty SupportBluffton Hospital Sleep [facility] [address] [place] [address] - Sleep DisordersComment on above:LILO (obstructive sleep apnea)Start: 07-07-2024 End: 73-59-9719Bgypmwtwr encounterBarbara Peters INSERT OPERATOR-COOK ENCHILADA Work Phone: [facility] - [facility] Disorders Comment on above:Sleep Lab (HST)Start: 06-30-2024 End: 11-97-8257Wnupvt follow up visit related to original Waleska Bansal MD Work Phone: uh [facility] Health CenterComment on above:Chronic ethmoidal sinusitis (Primary Dx); Nasal polyp; Nasal congestion with rhinorrheaStart: 06-30-2024 End: 32-55-9735nqevuuioxiWFEFPUYMohawk Valley [facility] Hospital Ambulatory Start: 06-29-2024 End: 96-45-0935Husaejrmf encounterBarbara Peters INSERT OPERATOR-COOK ENCHILADA Work Phone: [facility] Internal [facility] - [facility] Hospitaltart: 06-24-2024 End: 39-62-2528Covksd outpatient visit 15 Julio Peters INSERT OPERATOR-COOK ENCHILADA Work Phone: [facility] Internal Medicine - Family MedicineComment on above:LILO (obstructive sleep apnea) (Primary Dx); Influenza vaccination administered at current visit; Class 1 obesity due to excess calories with serious comorbidity and body mass index (BMI) of 33.0 to 33.9 in adultStart: 06-23-2024 End: 58-14-9488Wpfbrb follow up visit related to original Waleska Bansal MD Work Phone: uh [facility] Health CenterComment on above:Chronic ethmoidal sinusitis (Primary Dx); Nasal polyp; Nasal congestion with rhinorrheaStart: 06-23-2024 End: 81-34-2648libihinkylFVOHOOXMohawk Valley General Hospital Ambulatory Start: 06-17-2024 End: 01-36-3150aczjrqoujaMYQNGJLSelect Medical Specialty Hospital - Southeast Ohiotart: 06-17-2024 End: 37-73-4305Oepjmnyaub hospital visit by Chaz Bansal MD Work Phone: uh [facility] ORComment on above:Chronic ethmoidal sinusitis (Primary Dx); Surgery, elective; HTN (hypertension), benign; Deviated nasal septumStart: 06-10-2024 End: 24-57-6118Wpjiox Jayesh Peters INSERT OPERATOR-COOK ENCHILADA Work Phone: [facility] Internal Medicine - [facility] HospitalComment on above:Migraine without aura, not intractable, without status migrainosusStart: 06-04-2024 End: 81-72-3068cioxbxrnywWFEGIEHKettering Health Troytart: 05-18-2024 End: 27-51-4077DhclnvYvbmib G Furlong DO Work Phone: [facility] HospitalSelerity [facility] Internal Medicine - Family MedicineComment on above:Osteoporosis without current pathological fracture, unspecified osteoporosis typeStart: 05-06-2024 End: 10-31-0281oxfnjreljqEQZOQS Renetta MCKNIGHTMaurisioProtestant Hospitaltart: 73-74-3062Ursusopls for general adult medical examination without abnormal findingsVan Wert County Hospitaltart: 05-06-2024 End: 64-99-8688Iowrdtl encounter statusBarbara Peters INSERT OPERATOR-BonaYou Work Phone: [facility] CenterDoostang Work Phone: Start: 05-06-2024 End: 16-29-4879Eiaftrvd preventive med est patient 40-64yrsBarbara Peters INSERT OPERATOR-COOK ENCHILADA Work Phone: [facility] Internal Medicine - Family MedicineComment on above:Wellness examination (Primary Dx); Class 1 obesity due to excess calories with serious comorbidity and body mass index (BMI) of 33.0 to 33.9 in adult; LILO (obstructive sleep apnea); Encounter for screening colonoscopy; History of colon polypsStart: 04-01-2024 End: 40-56-8550Lnwlfi outpatient visit 15 minutesNilaliz Peters INSERT OPERATOR-COOK ENCHILADA Work Phone: [facility] HospitalS[facility] Internal Medicine - Family MedicineComment on above:Class 1 obesity due to excess calories with serious comorbidity and body mass index (BMI) of 31.0 to 31.9 in adult (Primary Dx); Class 1 obesity due to excess calories with serious comorbidity and body mass index (BMI) of 33.0 to 33.9 in adult; LILO (obstructive sleep apnea)Start: 03-11-2024 End: 52-70-5233Wneqaxi encounter procedureLORA BRAUN [facility] Rhys Start: 03-10-2024 End: 27-69-4184Wdsmucx encounter procedureNohemi Garcia [facility] Lisa start: 03-05-2024 End: 68-86-6389Yjijiz outpatient visit 15 minutesBarbara Peters INSERT OPERATOREllie Work Phone: [facility] Internal Medicine - Family MedicineComment on above:Essential hypertension (Primary Dx); Nasal polyp; Class 1 obesity due to excess calories with serious comorbidity and body mass index (BMI) of 33.0 to 33.9 in adult; Moderate persistent asthma without complicationStart: 02-10-2024 End: 86-75-5175Hffxiibkw Result EncounterRicha Gregory MD Work Phone: noms External Department UnsolicitedStart: 02-10-2024 End: 49-77-2606Fofwgpopc Result EncounterRicha Gregory MD Work Phone: noms External Department UnsolicitedStart: 02-10-2024 End: 73-81-2857pgovjxwjaxHFQPR F SABBAGHFacility:FTMCStart: 02-10-2024 End: 37-30-1107Zswkvvp encounter procedureRicha Gregory [facility] Start: 02-05-2024 End: 94-42-9317FkqncrIwqcdu L Rauch INSERT OPERATOREllie Work Phone: [facility] Internal Medicine - Family MedicineComment on above:Essential (primary) hypertensionStart: 01-28-2024 End: 57-32-3270Ubsxqv outpatient visit 25 minutesBarbara Peters INSERT OPERATOR-BonaYou Work Phone: [facility] Internal Medicine - Family MedicineComment on above:Class 1 obesity due to excess calories without serious comorbidity with body mass index (BMI) of 33.0 to 33.9 in adult (Primary Dx); Graves' disease; Essential hypertension; Moderate persistent asthma without complication; Gastroesophageal reflux disease, unspecified whether esophagitis presentStart: 12-29-2023 End: 78-60-3207nebipghmklInthqvnciGood Samaritan Hospital Work Phone: Start: 12-29-2023 End: 74-86-6943Tsgsoij encounter procedureAtrium Health Huntersville Physician GroupFerry [facility] Work Phone: Start: 09-44-1961HjjbtuPzcx Yumiko Argueta INSERT OPERATOR-CARPET FLOOR LAYER APPRENTICE Work Phone: [facility] Internal Medicine - Family MedicineComment on above:Migraine without aura, not intractable, without status migrainosusAllergic rhinitis, unspecifiedStart: 11-25-2023 End: 63-14-0567Igtmgya encounter procedureLORA BRAUN [facility] start: 11-18-2023 End: 83-84-6730Bsxcfcx encounter procedureLORA Pinto KADE [facility] Start: 06-29-8044Pbiebd OnlyBarbara Peters INSERT OPERATOR-COOK ENCHILADA Work Phone: [facility] - Family MedicineComment on above:Abnormal mammogram of left breast (Primary Dx)Start: 99-99-2649KypxhxMwssdo L Fran INSERT OPERATOR-COOK ENCHILADA Work Phone: [facility] - Family MedicineStart: 11-48-5362Fnrwkv OnlyBriana L Fran INSERT OPERATOR-COOK ENCHILADA Work Phone: [facility] - Family MedicineComment on above:Encounter for screening mammogram for malignant neoplasm of breast (Primary Dx)Start: 58-51-3793AftikfPwpzlt L Fran INSERT OPERATOR-COOK ENCHILADA Work Phone: [facility] - Family MedicineStart: 06-15-2023 End: 42-42-0137wvgldsyfguFmytnp Dymond Other [place] [employer] Other Start: 34-08-0825Whirjg outpatient visit 15 minutes Maria Isabel DymondFPG [facility] ClydeStart: 06-02-2023 End: 42-30-0318rejtmjevcyJtuwcg Leonie Other [facility] [employer] Other Start: 32-79-6458Beffdv outpatient visit 15 minutes Maria Isabel DymondFP[facility] ClydeStart: 12-23-2022 End: 47-76-1916arjqubqccvJogig Chaban Other [facility] [employer] Other Start: 51-72-8257Vaiiih outpatient visit 15 minutes Peteclayton WilkinsonalissaMercy Health [facility] SouthStart: 12-17-2022 End: 54-43-3694fyneigzpekZC GERA BURCIAGAFacility:B5Vvrql: 11-25-2022 End: 51-85-4674Fofjyyvcx department patient visitjp Ro [facility] Start: 11-20-2022 End: 97-79-6320lupcnucvetNlgkep Dymond Other [facility] [employer] Other Start: 19-85-5772Ewcgav outpatient visit 15 minutes Maria Isabel DymondFPG [facility] ClydeStart: 11-19-2022 End: 69-75-8404Kym Drop offBARBARA PETERS [facility] Start: 11-19-2022 End: 20-05-6612Pjdrphb encounter procedureJENNGENI BRAUN [facility] start: 09-11-2022 End: 38-02-2927jmkktfhibnOD JUSTIN YI .Facility:U1Thxkw: 08-22-2022 End: 70-97-0722zylucbfmjsMY Gera Kimlomanuel Work Phone: [facility] Work Phone: Start: 08-22-2022 End: 45-91-0303Iexgehg encounter procedureDO Gera Kimlomanuel Work Phone: [facility]-Sleep LabStart: 26-38-5401Wlwtny outpatient new 30 minutesKamal [facility] SouthStart: 06-24-2022 End: 12-10-4241drjjldeewsFW Gera Kimlomanuel Work Phone: [place] [employer] Other Start: 06-24-2022 End: 37-16-5889Gplnclv encounter procedureDO Gera Burciaga Work Phone: [facility]-Sleep LabStart: 04-23-2022 End: 35-06-9387bbddsxtdipKL GERA BURCIAGAFacility:I4Cbkya: 04-19-2022 End: 53-99-3743Jqwgbdi encounter procedureJustin YI [facility] start: 03-30-2022 End: 87-59-9868Lbiryypwy department patient visitAstrit H [facility] Start: 02-28-2022 End: 70-17-0698zsbkqhckuuYY ARVIN MONTEIROFacility:N3Ivqqp: 02-27-2022 End: 53-01-9750nuhgwsqhtaRZ JHONY ESPINOSA .Facility:J5Vubjn: 02-04-2022 End: 68-64-7418Rvcqswr encounter procedureMisael VINES [facility] Start: 01-30-2022 End: 43-84-3245Ibztyxg encounter procedureNohemi Garcia [facility] start: 84-32-0134tsfsfloahkSfaqzyuu:33551Oxnkv: 01-24-2022 End: 65-37-5130NeubykhbghvDgbrem P [facility] Start: 01-14-2022 End: 69-78-9534lqmjegwycwEalgmz Dymond Other [place] [employer] Other Start: 28-34-4145Frjzvp outpatient visit 15 minutes Maria Isabel HadleyFPG [facility] ClydeStart: 12-07-2021 End: 23-05-5746Osfwgcp encounter procedureBARBARA PETERS [facility] Start: 70-89-7143Kfoxvt outpatient visit 15 minutes Kristina DonaldFPBijan [facility] Procedures DateProcedureProcedure DetailPerforming ClinicianStart: 90-70-9288Cawsiw-up visitFollow-Kirby BANSALStart: 20-14-1050Bvzoemkekwtot metabolic panel Gera Thakkar Furlong DO Work Phone: Start: 18-02-8154Tyqxn panelGera Thakkar Furlong DO Work Phone: Start: 27-42-2192Vhngm depression screening assessment Gera Furlong DO Work Phone: Start: 74-03-7609NdpkkgiydrWdkesd Furlong DO Work Phone: Start: 48-83-2919Szflme-up visitFollow-Leroy TRUJILLO Start: 42-30-1761Goojh depression screening assessmentStajosep Palacios INSERT OPERATOR-COOK ENCHILADA Work Phone: Start: 04-20-8551Jlfkj depression screening assessment Barbara Peters INSERT OPERATOR-COOK ENCHILADA Work Phone: Start: 56-93-8949BqkmftirkspLornyz Rauch INSERT OPERATOR-[facility] Work Phone: Start: 18-07-7645HqeqvodfdkcYqpqijm Rodriguez MD Work Phone: Start: 55-05-6640WntmakoahlcXRYPISFC PERRY Start: 32-55-3401Iztns depression screening assessment Barbara Peters INSERT OPERATOR-[facility] Work Phone: Start: 82-66-6851Izkiz depression screening assessment Barbara Peters INSERT OPERATOR-[facility] Work Phone: Start: 15-82-2994Djrle depression screening assessment Barbara Peters INSERT OPERATOR-[facility] Work Phone: Start: 62-25-6976Hvdhecqzfnv removal of ureteric stent LORA BRAUN Start: 16-57-1532UA MAXILLOFACIAL W/O CONTRASTHilafloyd Gregory MD Work Phone: Start: 94-48-6522ShflevuirmmGgnrfg Rauch INSERT OPERATOR-[facility] Work Phone: Start: 53-52-1008Akmgh depression screening assessment Barbara Peters INSERT OPERATOR-[facility] Work Phone: Start: 93-01-2332YebhzujevgbEuywvq Rauch [facility] Work Phone: Start: 35-27-9561AaalprymvpZhhcqh SHAHStart: 19-58-8392Yrwirbzbd and biopsy of upper gastrointestinal tractSunil Akkina Start: 74-35-3488OnqrggarsrmAluroyk Rodriguez MD Work Phone: Start: 66-63-4395IaqjrfinqpxMijvh Akkina appendectomySunil Akkina CholecystectomySunil Akkina History of operative procedure on kneeSunil Barry Comment on above:Torn miniscus.Repair of diaphragmatic hiatal hernia by thoracoabdominal approachSumellisa Reddy Total hysterectomySumellisa Reddy Plan of Treatment DateCare ActivityDetailAuthorStart: 59-78-5574Tsljgkowp for malignant neoplasm of [facility]: 80-67-3181VXhG,Tdap and Td Vaccines (3 - Td or Tdap)DTaP,Tdap and Td Vaccines (3 - Td or Tdap)[facility]Start: 61-05-2376TIcA/Tdap/Td Vaccines (3 - Td or Tdap)DTaP/Tdap/Td Vaccines (3 - Td or Tdap)[facility]: 10-14-2029 Screening for malignant neoplasm of [facility]: 57-59-0689Siasqvue mellitus screeningDiabetes ScreeningAv[facility] Health [facility]: 78-79-0022Tvjps BMI ScreeningAdult BMI ScreeningFirstHealth Montgomery Memorial Hospitaltart: 94-54-4488Vjswacy ScreeningTobacco ScreeningK[facility] Start: 05-08-5074Gxleh BMI ScreeningAdult BMI ScreeningK[facility]tering [facility] Start: 61-57-1165Nlsrrug ScreeningTobacco ScreeningK[facility]tering Health [facility] SystemStart: 06-07-2026 End: 42-28-9504Xkthems encounter iqbpxywju92/23/2026 9:15 AM EDT Office Visit [facility] [address] [place] [address] Toni Bansal MD [address] [facility] [address] [place] [address] [facility]: 89-59-2608Uepzdc Adult PhysicalYearly Adult PhysicalUnMadison Health: 42-51-8833Jefdv BMI Follow Up PlanAdult BMI Follow Up Plan [facility] Hospitaltart: 08-96-1564Lrgnt BMI ScreeningAdult BMI Screening [facility] Hospitaltart: 54-58-1963Mpuckuuwil ScreeningDepression Screening [facility] Hospitaltart: 12-66-5045Qfvqxlv ScreeningTobacco Screening [facility] Hospitaltart: 31-19-0355Ifext BMI ScreeningAdult BMI Screening [facility] SystemStart: 52-43-9699Kkhna BMI ScreeningAdult BMI Screening [facility] SystemStart: 69-79-5545Bzwqvtb ScreeningTobacco Screening [facility] SystemStart: 80-91-7470Mdcnw BMI ScreeningAdult BMI Screening [facility] Hospitaltart: 72-32-7128Dxmxpufsps ScreeningDepression Screening [facility] Hospitaltart: 18-66-5958Ywxtyzx ScreeningTobacco Screening [facility] Hospitaltart: 39-23-4828Ifeik BMI ScreeningAdult BMI Screening [facility] Hospitaltart: 36-83-4253Rbfqjda ScreeningTobacco Screening [facility] Hospitaltart: 59-85-0808Xbspqhbvgl ScreeningDepression Screening [facility] Hospitaltart: 45-66-4218Wclcf BMI ScreeningAdult BMI Screening [facility] Hospitaltart: 33-54-6820Ilcqnvsmf for malignant neoplasm of breastMammogramFirstHealth Montgomery Memorial Hospitaltart: 11-08-2025 End: 81-65-7665Ipbrfkh encounter tuyylflvw60/24/2026 11:45 AM EST Office Visit [facility] [address] [place] [address] Claudio Trujillo MD [address] [facility] [address] [place] [address] [facility]/Sleep MedicineStart: 20-70-0309Epkga BMI ScreeningAdult BMI ScreeningKettering Health [facility] SystemStart: 18-21-6696Roeouys ScreeningTobacco ScreeningK[facility] Start: 09-12-2025 End: 73-41-8627Ickhmfjn [Mass/volume] in Serum or PlasmaFerritin Lab Routine Iron deficiency Expected: 09/12/2025, Expires: 07/12/2026[facility] Comment on above:Expected: 09/12/2025, Expires: 07/12/2026Start: 09-12-2025 End: 55-00-7469Eqgn and TIBCIron and TIBC Lab Routine Iron deficiency Expected: 09/12/2025, Expires: 07/12/2026ProPromedica Flower Hospitalca Work Phone: Comment on above:Expected: 09/12/2025, Expires: 07/12/2026Start: 08-31-2025 End: 33-78-9026Lkguddv encounter procedureNOTENET ST. [facility] ENDOCRINOLOGYStart: 08-02-2025 End: 53-99-5171Xsfxifu encounter dtcbesqsi77/18/2025 4:30 PM EST Office Visit [facility] [address] [place] [address] Gera Burciaga DO [address] [place] [address] [facility] - Family MedicineStart: 30-26-2507Zfdan BMI ScreeningAdult BMI ScreeningProMercy Health [facility] SystemStart: 07-12-2025 End: 41-36-7080Zrtijoe encounter lurhyhknc57/28/2025 12:30 PM EDT Office Visit [facility] [address] [place] [address] Claudio Trujillo MD [address] [facility] [address] [place], [place] [id number] [facility]/Sleep MedicineStart: 60-97-7787LwKkmkpu; Flu Shot OnlyInPerson; Flu Shot OnlyIN - [facility] Start: 07-04-2025 End: 76-18-2134Kpmuxri encounter xhyxyxpqe39/20/2025 4:30 PM EDT Office Visit [facility] [address] [place] [address] Gera Burciaga DO [address] [facility] [place] [address] [facility] - [facility] MedicineStart: 30-07-3987Athyf BMI ScreeningAdult BMI ScreeningProMercy Health [facility] Hospital SystemStart: 27-40-4561Xzuulncymk ScreeningDepression ScreeningProMercy Health [facility] Hospital SystemStart: 08-78-7807Xqodope ScreeningTobacco ScreeningProMercy Health [facility] Hospital SystemStart: 68-63-1046Sxnendmou vaccinationInfluenza VaccineProMercy Health Lorain Hospital SystemComment on above:Postponed from 05/16/2025 (Vaccine Not Available)Start: 06-08-2025 End: 83-10-0182Yskljdd encounter bkupouequ29/24/2025 9:15 AM EDT Office Visit [facility] [address] [facility] [address] [place] [address] Toni Bansal MD [address] [facility] [address] [place] [address] [facility]: 06-03-2025 End: 16-71-9158Imjhcvl encounter pchoxfvnh92/19/2025 11:00 AM EDT Office Visit [facility] [address] [place] [address] Barbara Peters, INSERT OPERATOR-COOK ENCHILADA [address] [place] [address] [facility] - [facility] MedicineStart: 87-33-9234Bdrdobjup for osteoporosis Bone Density ScanKettering Health – Soin Medical CenterStart: 31-62-1277ZsdigvhzpSelect Medical [facility], Avontart: 84-44-0553HIYVF-19 Vaccine ( season) COVID-19 Vaccine ( season)[facility] CenterStart: 27-60-6265Dlagcgujx vaccinationProAndalusia Health Health SystemStart: 05-12-2025 End: 59-54-6012Nidsglo encounter jkjqbeltm73/28/2025 4:00 PM EDT Office Visit [facility] [address] [place] [address] Barbara Peters, INSERT OPERATOR-COOK ENCHILADA [address] [place] [address] [facility] - Family MedicineStart: 81-54-6458Jthee BMI ScreeningAdult BMI ScreeningProMedica Health SystemStart: 53-55-9840Fhqgobv ScreeningTobacco ScreeningMagruder Hospitalca [facility] SystemStart: 04-07-2025 End: 14-94-5211Miqaspne Biftmzd0204/07/2025 8:00 PM EDT Clinical Support [facility] Sleep Disorders [address] [place], [place] [address] [place] [address] Claudio Trujillo MD [address] [address] [facility] Sleep DisordersSte[place]: 97-43-1692Jrxta BMI ScreeningAdult BMI ScreeningMagruder Hospitalca Health SystemStart: 07-15-6252Troypauynn ScreeningDepression ScreeningProMedica Health SystemStart: 15-17-0104Egusngq ScreeningTobacco ScreeningPorter Medical CenterMedica [facility] SystemStart: 03-08-2025 End: 61-42-2158Wlvahtr encounter oadxswlyx61/24/2025 12:30 PM EDT Office Visit [facility] [place] [address] Claudio Trujillo MD [address] [address] [facility]/Sleep MedicineStart: 49-89-6072Qaldm BMI ScreeningAdult BMI ScreeningProMercy Health Lor[facility] Hospital SystemStart: 17-95-6876Fjhvqsxywo ScreeningDepression ScreeningProMercy Health Lorain Hospital SystemStart: 76-31-0562Fexnczo ScreeningTobacco ScreeningK[facility] Start: 03-02-2025 End: 00-99-0097Nuseipt function 2000 panel - Serum or PlasmaHepatic function panel Lab Routine Graves' disease Expected: 03/02/2025 (Approximate), Expires: 03/02/2026NOOK HealthcareComment on above:Expected: 03/02/2025 (Approximate), Expires: 03/02/2026Start: 03-02-2025 End: 21-12-0862Pdnyofmufde [Units/volume] in Serum or PlasmaTSH Lab Routine Graves' disease Expected: 03/02/2025 (Approximate), Expires: 03/02/2026NOOK HealthcareComment on above:Expected: 03/02/2025 (Approximate), Expires: 03/02/2026Start: 03-02-2025 End: 27-60-3658Ebqwvjeux (T4) free [Mass/volume] in Serum or PlasmaT4, free Lab Routine Graves' disease Expected: 03/02/2025 (Approximate), Expires: 03/02/2026 [facility] HealthcareComment on above:Expected: 03/02/2025 (Approximate), Expires: 03/02/2026Start: 03-02-2025 End: 07-50-2775Fvvpirahdsmpbubu (T3) Free [Mass/volume] in Serum or PlasmaT3, free Lab Routine Graves' disease Expected: 03/02/2025 (Approximate), Expires: 03/02/2026[facility] Work Phone: Comment on above:Expected: 03/02/2025 (Approximate), Expires: 03/02/2026Start: 03-02-2025 End: 99-13-8473Ssieiqu encounter hiaokzfxw21/18/2025 9:00 AM EDT Office Visit [facility] [place] [phone] Manju Solo MD [address] [place] [address] [facility] ENDOCRINOLOGYComment on above:Arrived Start: 64-88-9630Vohnu BMI ScreeningAdult BMI ScreeningKettering Health [facility] Start: 01-26-2025 End: 09-19-1187Oimhafn encounter nyywtzyxk79/14/2025 3:00 PM EDT Office Visit [facility] [address] [place] [address] Joanna Palacios, INSERT OPERATOR-COOK ENCHILADA [address] [facility], [address] [place] [phone] [facility]/Sleep MedicineStart: 12-30-2024 End: 18-07-9903AL Cervical spine ViewsX-ray spine cervical 3 views or less Imaging Routine Neck pain Expected: 12/30/2024, Expires: 12/30/2025[facility] SystemComment on above:Expected: 12/30/2024, Expires: 12/30/2025Start: 12-30-2024 End: 51-04-7644EK Thoracic spine 3 ViewsX-ray spine thoracic 3 views Imaging Routine Mid back pain on left side Expected: 12/30/2024, Expires: 12/30/2025 [facility] Work Phone: Comment on above:Expected: 12/30/2024, Expires: 12/30/2025Start: 65-33-7483Ckmkllvc identified in Urine by CultureUrine Culture [facility]art: 35-25-9987Olubl cultureSelect Medical [facility] Rehabilitation Hospital, Avontart: 12-08-2024 End: 65-22-8784Ncfrwjn encounter ofpwtbojf22/26/2025 9:30 AM EDT Office Visit [facility] [address] [place] [address] Toni Bansal MD [address] [facility] [address] [place], [place] [address] [facility]: 11-22-2024 End: 80-39-2260NDV Breast - bilateral screeningMammography screening bilateral with CAD Imaging Routine Encounter for screening mammogram for malignant neoplasm of breast Expected: 11/22/2024, Expires: 11/22/2025[facility] Work Phone: Comment on above:Expected: 11/22/2024, Expires: 11/22/2025Start: 81-47-4201Jtanf BMI ScreeningAdult BMI ScreeningProMercy Health Lorain Hospital SystemStart: 37-34-6413Kvbjiklgn for malignant neoplasm of breast MammogramKettering Health – Soin Medical CenterStart: 10-27-2024 End: 43-53-0299Hiahyza encounter ctbjjbyws81/12/2025 3:15 PM EST Office Visit [facility] [address] [place] [address] Joanna Palacios, INSERT OPERATOR-COOK ENCHILADA [address] [place] [address], [address] [address] [facility]/Sleep MedicineStart: 10-20-2024 End: 64-14-5225Tfotflvas to same day surgery agkxdr1310/20/2024 10:00 AM EST - 10/20/2024 11:00 AM EST Surgery [facility] [address] [place] [address] Mariusz Plata, DO [address] [place] [address] COLONOSCOPY DIAGNOSTIC / SCREENING [66732 (CPT )][facility] - EndoscopyComment on above:COLONOSCOPY DIAGNOSTIC / SCREENING [20285 (CPT )]Start: 68-48-5766Xqgedqeezm hospital visit by qgypllunp95/05/2025 10:00 AM EST Hospital Encounter [facility] [address] [place] [address] Mariusz Plata, DO [address] [place] [address] [facility]oscopyStart: 10-20-2024 End: 74-78-5221Iejsgsjznnb flx dx w/collj spec when pfrmdFREMONT ENDOSCOPYStart: 10-19-2024 End: 50-97-5866utfcelmggk36/04/2025 4:10 PM EST Support Visit [facility] - Pre Admit [address] [place] [address] [facility] AdmitStart: 08-11-2024 End: 39-44-9155Rwcbjxi encounter rpkvqjirl30/27/2024 9:45 AM EST Office Visit [facility] [address] [facility] [address] [place] [address] Toni Bansal MD [address] [facility] [address] [place] [address] [facility]: 08-10-2024 End: 10-32-0283Musbwagsj to same day surgery dembir9508/10/2024 9:00 AM EST - 08/10/2024 10:00 AM EST Surgery [facility] [address] [place] [address] Mariusz Plata, DO [address] [place] [address] COLONOSCOPY DIAGNOSTIC / SCREENING [94080 (CPT )][facility] - EndoscopyComment on above:COLONOSCOPY DIAGNOSTIC / SCREENING [70310 (CPT )]Start: 08-10-2024 End: 76-68-7970Nkyoefykzfy flx dx w/collj spec when pfrmdCOLONOSCOPY DIAGNOSTIC / SCREENING History of colon polyps 08/10/2024 9:00 AM ESTFREMONT ENDOSCOPY Start: 66-63-6844Zgfrsvwwzl hospital visit by physicianUC Health - EndoscopyComment on above:Personal history of adenomatous and serrated colon polyps (Primary Dx)Start: 08-09-2024 End: 12-80-7277yzwitxlhwd34/25/2024 4:20 PM EST Support Visit [facility] Pre Admit [address] [place] [address] [facility] AdmitStart: 19-39-5923Ljqdn BMI ScreeningAdult BMI ScreeningKettering Health Springfield SystemStart: 73-92-2292Sktsbjzyop ScreeningDepression ScreeningFirstHealth Montgomery Memorial Hospitaltart: 99-62-3442Bdudlxp ScreeningTobacco ScreeningFirstHealth Montgomery Memorial Hospitaltart: 06-30-2024 End: 99-17-0178Gwcormo encounter wlqsvumlo92/16/2024 10:00 AM EDT Office Visit [facility] [address] [place] [address] Toni Bansal MD [address] [place] [address] [facility]: 06-24-2024 End: 24-34-7115Xvvtvfn encounter lgccvfyac47/10/2024 1:40 PM EDT [facility] [address] [place] [address] Barbara Peters, INSERT OPERATOR-COOK ENCHILADA [address] [place] [address] [facility] - Family MedicineStart: 06-23-2024 End: 42-01-5740Pbpfqzu encounter lgabpxzbq63/09/2024 10:30 AM EDT Office Visit [facility] [address] [place] [address] Toni Bansal MD [address] [place] [address] [facility]: 06-17-2024 End: 48-87-6014Nmdav/sinus ndsc surg w/lor bullosa resectionExcision Nasal Turbinate Deviated nasal septum Chronic ethmoidal sinusitis 06/17/2024 7:42 AM EDTVirtual [facility] ORStart: 06-17-2024 End: 12-55-8512Jwexi/sinus ndsc w/rmvl tiss from frontal sinusNasal Endoscopy with Excision Tissue Frontal Sinus Deviated nasal septum Chronic ethmoidal sinusitis 06/17/2024 7:42 AM EDTVirtual [facility] ORStart: 06-17-2024 End: 05-17-7110Lvi/sinus ndsc max antrost w/rmvl tiss max sinusNasal Endoscopy with Excision Tissue Maxillary Sinus Deviated nasal septum Chronic ethmoidal sinusitis 06/17/2024 7:42 AM EDTVirtual [facility] ORStart: 06-17-2024 End: 37-52-8226Kgfahjncabk/submucous resecj w/wo cartilage grfRepair Septum Nasal Cavity Deviated nasal septum Chronic ethmoidal sinusitis 06/17/2024 7:42 AM EDTVirtual [facility] ORStart: 06-17-2024 End: 91-73-2945Vxzxftz cptr asstd px extradural cranialNavigation-Assisted Surgery Deviated nasal septum Chronic ethmoidal sinusitis 06/17/2024 7:42 AM EDT Virtual [facility] ORStart: 37-66-6601LSPCF-19 Vaccine () COVID-19 Vaccine ()[facility]: 27-76-9841ULSUS-19 Vaccine ()COVID-19 Vaccine ( season)[facility]: 20-19-3086Bgdhfmvbp vaccination [facility]: 05-07-2024 End: 19-60-7759Jvqxhid encounter angspwmiy78/23/2024 8:40 AM EDT Office Visit [facility] [address] [place] [address] Barbara Peters INSERT 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-COOK ENCHILADA [address] [place] [address] [facility] MedicineStart: 05-06-2024 End: 09-50-7638Jklqmug encounter /22/2024 1:00 PM EDT Office Visit [facility] - [facility] [address] [place] [address] Barbara Peters INSERT 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-COOK ENCHILADA [address] [place] [address] [facility] MedicineStart: 11-77-9968Qxozk BMI Follow Up Plan Adult BMI Follow Up PlanKettering Health Springfield SystemComment on above:Postponed from 1980 (Not Indicated)Start: 18-81-8287JEuQ,Tdap and Td Vaccines (2 - Td or Tdap)DTaP,Tdap and Td Vaccines (2 - Td or Tdap)[facility] Hospitaltart: 57-21-9799FJjS/Tdap/Td Vaccines (2 - Td or Tdap)DTaP/Tdap/Td Vaccines (2 - Td or Tdap)[facility] CenterStart: 03-05-2024 End: 18-24-1473Zoulknw encounter mvaivrany74/21/2024 8:40 AM EDT Office Visit [facility] - [facility] Medicine [address] [place] [address] Barbara Peters, INSERT OPERATOR-COOK ENCHILADA [address] [place] [address] [facility] MedicineStart: 01-28-2024 End: 18-04-6292Chnecmq encounter yfbbvywmb65/15/2024 4:00 PM EDT Office Visit [facility] - Family Medicine [address] [place] [address] Barbara Peters, INSERT OPERATOR-COOK ENCHILADA [address] [place] [address] [facility] MedicineStart: 01-22-2024 End: 00-79-8944Xzlbfxq encounter jkkgqebjc42/09/2024 4:00 PM EDT Office Visit [facility] - Family [facility] [address] [place] [address] Barbara Peters, INSERT OPERATOR-COOK ENCHILADA [address] [place] [address] [facility]: 11-18-2023 End: 88-40-8944Jhsboaa encounter vevowuths24/05/2024 11:00 AM EST Appointment [facility] - Ultrasound [address] [place] [address] [phone] Health - UltrasoundStart: 11-07-2023 End: 34-46-3559PB Breast duct - left Views W contrast intra ductMammography diagnostic unilateral left with CAD Imaging Routine Abnormal mammogram of left breast Expected: 11/07/2023, Expires: 11/07/2024[facility] Work Phone: Comment on above:Expected: 11/07/2023, Expires: 11/07/2024Start: 11-07-2023 End: 70-01-4009IA Breast - left limitedUltrasound breast limited left Imaging Routine Abnormal mammogram of left breast Expected: 11/07/2023, Expires: 11/07/2024ProProm[facility] HospitalCatheter Connections SystemComment on above:Expected: 11/07/2023, Expires: 11/07/2024Start: 11-05-2023 End: 41-32-3243Oxnpakm encounter vxpygqkog93/21/2024 2:45 PM EST Appointment [facility] - Mammogram DEXA [address] [place] [address] [facility]ammogram DEXA Start: 07-38-3654Cxmwftwxt for malignant neoplasm of breastMammogramKettering Health Springfield SystemStart: 10-07-2023 End: 06-02-5628FNR Breast - bilateral screeningMammography screening bilateral with CAD Imaging Routine Encounter for screening mammogram for malignant neoplasm of breast Expected: 10/07/2023, Expires: 10/07/2024[facility] Work Phone: Comment on above:Expected: 10/07/2023, Expires: 10/07/2024Start: 38-86-3321HNN ( or age 60+ yrs) (1 - Risk 60-74 years 1-dose series)RSV ( or age 60+ yrs) (1 - Risk 60-74 years 1-dose series) [facility]: 47-41-4455BXQ High Risk: (Elderly (60+) or Population) (1 - Risk 60-74 years 1-dose series)RSV High Risk: (Elderly (60+) or Population) (1 - Risk 60-74 years 1-dose series)[facility]: 07-24-5999NCL patients and/or patients aged 60+ years (1 - 1-dose 60+ series)RSV patients and/or patients aged 60+ years (1 - 1-dose 60+ series)[facility]: 38-39-6253Xzbcbarbg for malignant neoplasm of cervixNOMS HealthcareStart: 61-02-3433Gtpfiwhos for malignant neoplasm of cervixUnMadison Health: 27-25-6974Pcwub BMI Follow Up PlanAdult BMI Follow Up Plan [facility] Hospitaltart: 04-56-3431Mngjjrzi mellitus screeningDiabetes ScreeningUnMadison Health: 68-12-6506Xonpgnpnv C screening Hepatitis C ScreeningAv[facility]: 13-79-3439HIE Vaccines (1 of 1 - Standard series)MMR Vaccines (1 of 1 - Standard series) [facility]: 06-30-2953PMW screeningHIV Screening [facility]: 95-14-0671Ubgnx panelLipid Panel [facility]: 70-58-8894Gaunnyqkz for malignant neoplasm of colonUnMadison Health: 18-26-9687Oxwbrxt stimulating hormone measurementBlanchard Valley Health System [facility]: 70-59-4716Xjqaot Adult PhysicalYearly Adult PhysicalKettering Health [facility] End: 01-74-7398ONL W Auto Differential panel - BloodCBC auto differential Lab Routine Iron deficiency anemia, unspecified iron deficiency anemia type 1 Occurrences starting 05/17/2025 until 05/17/2026Pro[facility]den[facility] Work Phone: Comment on above:1 Occurrences starting 05/17/2025 until 05/17/2026olonoscopy flx dx w/collj spec when pfrmdCOLONOSCOPY DIAGNOSTIC / SCREENING Personal history of adenomatous and serrated colon polypsFREMONT ENDOSCOPYColonoscopy flx dx w/collj spec when pfrmdCOLONOSCOPY DIAGNOSTIC / SCREENING Personal history of adenomatous and serrated colon polypsFREMONT ENDOSCOPY End: 93-36-1004Dumrjamfyy Pulse oximetry, In Phase 1Continuous Pulse oximetry, In Phase 1 Respiratory Care Routine Continuous until discontinued starting 06/17/2024[facility] Service Area Work Phone: Comment on above:Continuous until discontinued starting 06/17/2024 End: 78-90-1142Vgoakimw [Mass/volume] in Serum or PlasmaFerritin Lab Routine Iron deficiency 1 Occurrences starting 04/21/2025 until 04/21/2026[facility] CenterBrightView Systems SystemComment on above:1 Occurrences starting 04/21/2025 until 04/21/2026 End: 19-32-5463Kbux sleep studyHome sleep study Sleep Center Routine LILO (obstructive sleep apnea) 1 Occurrences starting 06/24/2024 until 06/24/2025 [facility] Work Phone: Comment on above:1 Occurrences starting 06/24/2024 until 06/24/2025 End: 77-01-7502Cbbo and TIBCIron and TIBC Lab Routine Iron deficiency 1 Occurrences starting 04/21/2025 until 04/21/2026[facility] Work Phone: Comment on above:1 Occurrences starting 04/21/2025 until 04/21/2026Patient EducationUreteroscopy - Discharge instructions Lithotripsy for kidney stones - Discharge instructions Ureteral stent placement - Discharge instructions Know your [facility]University [facility] Work Phone: Patient [facility] Work Phone: End: 51-96-8544Mtduyubsbasjkfw 4 or more parameters with PAP titration Polysomnography 4 or more parameters with PAP titration Sleep Center Routine LILO (obstructive sleepapnea) 1 Occurrences starting 03/08/2025 until 03/08/2026 [facility] Work Phone: Comment on above:1 Occurrences starting 03/08/2025 until 03/08/2026Surgical pathology studySurgical Pathology Exam Pathology and Cytology Timed Deviated nasal septum Chronic ethmoidal sinusitis Release Upon Ordering for 1 Occurrences starting 06/17/2024[facility] Service Area Work Phone: Comment on above:Release Upon Ordering for 1 Occurrences starting 06/17/2024 Immunizations Immunization DateImmunizationNotesCare DmxmrvcfPzysxedz10-71-0430pkhjgzxjz, seasonal, injectable, preservative freeAcey Feldman [facility] [id number], bivalent, protein subunit RSVpreF, diluent reconstituted, 0.5 mL, PFDennis Furlong DO Work Phone: [facility] CenterDoostangJjpbmy11-97-1733qyjslda toxoid, reduced diphtheria toxoid, and acellular pertussis vaccine, adsorbedDennis Furlong DO Work Phone: [facility] CenterDoostangOhranq92-17-7420yunuyxbtr, seasonal, injectable, preservative freeBarbara Peters APRN-COOK ENCHILADA Work Phone: [facility] HospitalOsteogenixFdkzta98-87-5200Ytcmlqezzpwt, In Clinic,; Translations: [Drug or medicament (substance)]Barbara Fran INSERT OPERATOR-COOK ENCHILADA Work Phone: [facility] MemorialBwuijw95-37-1108rowakbdiv virus vaccine, unspecified formulationBriana Fran INSERT OPERATOR-COOK ENCHILADA Work Phone: [facility]11-22-2023zoster vaccine recombinantBriana Fran INSERT OPERATOR-COOK ENCHILADA Work Phone: [facility]10-05-2023Influenza Vaccine, Quadrivalent, AdjuvantedBriana Fran INSERT OPERATOR-COOK ENCHILADA Work Phone: [facility] MemorialGcdntg65-61-5899deombgado virus vaccine, unspecified formulationJENNIFER KADE [facility]10-05-2023influenza, injectable, quadrivalent, preservative freeBriana Fran INSERT OPERATOR-COOK ENCHILADA Work Phone: [facility] MemorialCcqlla19-78-3890Pmwpwlpfljtl Conjugate 20-valentBriana Fran INSERT OPERATOR-COOK ENCHILADA Work Phone: [facility]07-28-2023zoster vaccine recombinantBriana Fran INSERT OPERATOR-COOK ENCHILADA Work Phone: [facility]10-13-2022influenza virus vaccine, unspecified formulationJENNIFER KADE [facility]10-13-2022influenza, injectable, quadrivalent, preservative freeBriana Fran INSERT OPERATOR-COOK ENCHILADA Work Phone: [facility] MemorialKllkuy15-18-8214nileeyocc, live, intranasal, quadrivalentBriana Fran INSERT OPERATOR-COOK ENCHILADA Work Phone: [facility] MemorialNgbhco98-77-8355TABY-QbN-4 (COVID-19) mRNA-1273 vaccineJENNIFER KADE [facility]10-13-2021influenza virus vaccine, unspecified formulationJENNIFER KADE [facility]10-13-2021influenza, injectable, quadrivalent, preservative freeBriana Fran INSERT OPERATOR-COOK ENCHILADA Work Phone: Alegría09-18-2021Toradol 30 mg/ml Kristina Shabana Other noYoBucko Other [id number]-OgE-7 (COVID-19) mRNA-1273 vaccine LORA BRAUN [facility] on above:Result Comment: 2023-11-25: [id number]-InD-3 (COVID-19) mRNA-1273 vaccineLORA KADE [facility] on above:Result Comment: 2023-11-25: KSM2113-73-4000skzzqljqt virus vaccine, unspecified formulationJENNIFER KADE [facility]10-02-2020influenza, injectable, quadrivalent, preservative freeBriana Fran INSERT OPERATOR-COOK ENCHILADA Work Phone: [facility] CenterDoostangXyrzep27-20-2596WAUGINNFDSWA (Phenergan) up to 50 mgStephanie Shabana Other [employer] Other [id number] per 15 mgStephanie Shabana Other noKloudless [employer] Other [id number] virus vaccine, unspecified formulationJENNIFER KADE [facility]09-24-2019influenza, injectable, quadrivalent, preservative freeBriana Fran INSERT OPERATOR-COOK ENCHILADA Work Phone: [facility] [employer] Fsibdm07-94-6715qjoiycnnm, injectable, quadrivalent, contains preservativeBriana Fran INSERT OPERATOR-COOK ENCHILADA Work Phone: [facility] [employer] Gxakvq18-31-4878fwuwswcpr virus vaccine, unspecified formulationJENNIFER KADE [facility]08-25-2018influenza, injectable, quadrivalent, preservative freeBriana Fran INSERT OPERATOR-COOK ENCHILADA Work Phone: [facility] [employer] Yqpugk44-18-5923opcakmogm virus vaccine, unspecified formulationJENNIFER KADE [facility]08-25-2017influenza, injectable, quadrivalent, preservative freeBriana Fran INSERT OPERATOR-COOK ENCHILADA Work Phone: [facility] [employer] Ayojke33-96-3812Bsjitqj per 15 mg Kristina Shabana Other WAKU WAKU ? Other [id number] (Phenergan) up to 50 mg Kristina Shabana Other WAKU WAKU ? Other [id number] virus vaccine, unspecified formulationJENNIFER KADE [facility]09-29-2016influenza, seasonal, injectable, preservative freeBriana Fran INSERT OPERATOR-COOK ENCHILADA Work Phone: [facility] CenterBrightView Systems Cidafq91-75-3070neueqedpk virus vaccine, unspecified formulationJENNIFER KADE [facility]10-14-2015influenza, seasonal, injectable, preservative freeBriana Fran INSERT OPERATOR-COOK ENCHILADA Work Phone: [facility]07-25-2014tetanus toxoid, reduced diphtheria toxoid, and acellular pertussis vaccine, adsorbedBriana Fran INSERT OPERATOR-COOK ENCHILADA Work Phone: [facility]12-23-2013influenza nasal, unspecified formulationBriana Fran INSERT OPERATOR-COOK ENCHILADA Work Phone: [facility] [employer] Zttjrz27-53-3987tabpqmzlo virus vaccine, unspecified formulationBriana Fran INSERT OPERATOR-COOK ENCHILADA Work Phone: [facility] MemorialYzmanf60-69-4178mizonrybq, unspecified formulationJENNIFER KADE [facility] Payers DatePayer CategoryPayerPolicy [id number]-hid [id number] Health Insurance .[id number] Care Other (unspecified)FRONTPATH Member Subscriber Plan / Payer (Effective 2018- Present) Name: Yani Joseph Relation to Subscriber: Self Name: OpalYani chacon Payer ID: Not on file Type: Not on file [address]: [address] [place] [id number] [id number].3.702[id number] 2.16.840.1.972799.3.57[id number] 2.16.840.1.164180.3.57[id number] 2.16.840.1.983546.3.57[id number] 2.840.1.905284.3.57[id number] 2.840.1.337355.3.57[id number] 2.840.1.390477.3.57[id number] 2.840.1.672510.3.579.2.3[id number] 2.840.1.968160.3.57[id number] 2.840.1.408477.3.57[id number] 2.840.1.428880.3.57[id number] 2.840.1.666352.3.579.2.57617-26-6982Zqazijl26781511 2.840.1.366948.3.57[id number] 2.840.1.916810.3.57[id number] 2.16.840.1.567749.3.579.2.67163-20-0234Tvsbnti93389348 2..840.1.179703.3.579.[id number] 2.16.840.1.408971.3.579.2.28[id number] 2.840.1.276789.3.57[id number] 2.840.1.657227.3.579.[id number] 2.840.1.349878.3.57[id number] 2.840.1.630889.3.579.2.0[id number] 2.840.1.325365.3.579.2.5[id number] 2.840.1.360059.3.579.2.5[id number] 2.840.1.017316.3.579.2.4[id number] 2.840.1.590353.3.57[id number] 2.840.1.698238.3.579.2.2980[id number] 2.840.1.041051.3.579.2.892075-87-7999Jjmhndt211370116 2.840.1.038210.3.579.2.183261-25-7752Papobyz582752807 2.840.1.873781.3.579.2.624915-99-0410Vncggco778596245 2.0.1.052716.3.579.2.376208-40-4201Eezjwta006346096 2.840.1.804168.3.579.2.310040-94-3759Xtisdea279294063 2.0.1.440072.3.579.2.017877-89-7713Sydjill80564595 2.0.1.543692.3.579.2.214126-51-4303Xnrqtdi555276245 2.0.1.110027.3.579.2.448710-31-1213Mdxmiwi492828740 2..1.037459.3.579.2.987089-79-2957Csjnsux284035944 2..1.138187.3.579.2.286040-38-3276Msafykf933827978 2..1.451273.3.579.2.791714-69-2550Snrzqrc172434377 2.0.1.050273.3.579.2.875106-02-6446Osviwgo630112133 2..1.850783.3.579.2.166153-67-0340Mceikom356977123 2..1.353968.3.579.2.296281-46-5787CirnodcBI11644204 2.840.1.018388.19 Eexavkz76887793 2.840.1.651089.3.579.2.199Mqnabnw96082751 2.840.1.514291.3.579.2.531 Social History DateTypeDetailFacilityStart: 01-30-2021 End: 15-26-9984Aagvdvm smoking statusEx-smoker (finding)[facility] iNEWiT Other Start: 10-23-2022 End: 30-32-1907Gwj Assigned At [facility] iNEWiT Other Start: 45-28-1221Lvi Assigned At [facility] Clin[facility]art: 11-19-2022 End: 09-53-2545Yofwlab smoking statusNever smoked tobacco (finding)[facility] Ohiotart: 08-09-2022 End: 38-34-5374Ieqcpmu smoking statusNeverExecutive [facility]rology of [facility] CompanyueStart: 09-15-1986 End: 14-92-7100Myerqyq of tobacco useCurrent smokerProBrightView Systems SystemStart: 09-15-1986 End: 87-82-8164Nznuwax of tobacco useCigarette SmokerUnPremier Health Atrium Medical Center Work Phone: Start: 03-04-2024 End: 41-87-4852Ihinkes use and exposureSmokeless tobacco non-userMagruder HospitalCatheter Connections SystemStart: 06-17-2024 End: 59-26-5630Yrtyhtvom beverage intakeLifetime non-drinker (finding)[facility] Work Phone: Start: 10-23-2022 End: 98-27-1248Jevirih of Social functionUnPremier Health Atrium Medical CenterStart: 92-59-5305Koc assigned at birthNot on filePorter Medical CenterBrightView Systems SystemStart: 06-07-2024 End: 41-14-0920Usxkkoxe to SARS-CoV-2 (event)Not sureKettering Health – Soin Medical CenterStart: 69-71-5585Rkfiuk identityIdentifies as female gender (finding) [facility] Work Phone: Start: 92-31-9734Oyydgx orientationHeterosexual (finding)[facility] Work Phone: Start: 06-30-2024 End: 14-67-1075Wdjvmcrpm beverage intakeEx-drinker (finding)[facility] [employer] SystemStart: 64-57-5244Gwxbbte CommentoccasionalUniTrinity Health System Work Phone: Do you belong to any clubs or organizations such as roman catholic groups, unions, fraternal or athletic groups, or school groups?No [facility] SystemAre you now , , , , never or living with a partner?MarriedProMedica Health SystemHow often to you have a drink containing alcohol?NeverProMedica Health SystemDo you feel stress - tense, restless, nervous, or anxious, or unable to sleep at night because your mind is troubled all the time - these days [OSQ]To some extentUniversity Hospitals Health System ThinkVidya SystemStart: 15-03-2535Xaayrlhue45CxyFyubpd Health SystemStart: 04-20-2015 End: 39-13-9846TglCtggbw (finding)[facility] Health SystemHow hard is it for you to pay for the very basics like food, housing, medical care, and heatingNot very hardUniversity Hospitals Health System Think[employer] SystemStart: 01-12-2024 End: 60-76-6516Qrhxtaerp beverage intakeCurrent drinker of alcohol (finding)[facility] HealthcareStart: 92-69-4406Gqqkwds CommentSociallyNOMS HealthcareSexual OrientationExec[facility] Medical Equipment Procedure CodeEquipment CodeEquipment Original TextEquipment IdentifierDates Implant ([id number])FDAStart: 34-61-7019KATEhxuz: 61-18-9890RDKRrznh: 01-24-2022 CYSTOSCOPY RETROGRADE STENT INSERTION Misael VINES MD 01/24/22 Unknown Ureter RFDAStart: 76-75-2081SZERXWJTBG RETROGRADE STENT INSERTION Misael VINES MD 01/24/22 Unknown Ureter RFDAStart: 18-67-8936RKACCKHGBY RETROGRADE STENT INSERTION Misael VINES MD 01/24/22 Unknown Ureter RFDAStart: 01-24-2022 CYSTOSCOPY RETROGRADE STENT INSERTION Misael VINES MD 01/24/22 Unknown Ureter RFDAStart: 20-18-5220MRXEBKOTCN RETROGRADE STENT INSERTION Misael VINES MD 01/24/22 Unknown Ureter RFDAStart: 35-70-8081FYFZGJZGGY RETROGRADE STENT INSERTION Misael VINES MD 01/24/22 Unknown Ureter RFDAStart: 01-24-2022 CYSTOSCOPY RETROGRADE STENT INSERTION Misael VINES MD 01/24/22 Unknown Ureter RFDAStart: 01-32-6514KJBDYJLWRM RETROGRADE STENT INSERTION Misael VINES MD 01/24/22 Unknown Ureter RFDAStart: 71-31-3345QUFDFKTANY RETROGRADE STENT INSERTION Misael VINES MD 01/24/22 Unknown Ureter RFDAStart: 01-24-2022 CYSTOSCOPY RETROGRADE STENT INSERTION Misael VINES MD 01/24/22 Unknown Ureter RFDAStart: 96-73-8963ODIRRWJMGH RETROGRADE STENT INSERTION Misael VINES MD 01/24/22 Unknown Ureter RFDAStart: 24-29-7192VQRQDQPOPQ RETROGRADE STENT INSERTION Misael VINES MD 01/24/22 Unknown Ureter RFDAStart: 01-24-2022 Implant, Propel Contour Sinus - [id number]_oxuZwoou: 54-14-0014Cyhfsyn, Propel Contour Sinus - [id number]: 86-38-8756DLMRVDINYH RETROGRADE STENT INSERTION Misael VINES MD 01/24/22 Unknown Ureter RFDAStart: 01-24-2022 Goals DatePatient GoalDesired Activity/StatePersonal health goalComment on above: Evaluation of progress towards goal: Plans to return home with self care. Functional Status JopdNhqmyoqusvEueltxOayxofnc81-45-1008Jmxve score [AUDIT-C]0 07/12/2025 12:31 PM Argenis Barrett, [facility]06-27-2024Functional Status N/AExec[facility] Srmmxfti16-79-3160Xpopobxani StatusN/AExec[facility] of [facility] Ybagckdn54-88-1707 Functional StatusN/AFOhioHealth Grove City [facility]03-07-2023Functional StatusYes [facility]08-05-2022Functional StatusN/AExec[facility] [id number] StatusN/KENYAAshtabula County Medical Center Clinical Notes 07-12-2021 to 07-12-2025 Note Date & XhobXhkvVkntquxs19-99-9166 History of Present illness Narrative* Argenis Rod CMA - 07/12/2025 12:30 PM EDT Images from the original note were not included. * Claudio Trujillo MD - 07/12/2025 12:30 PM EDT Images from the original note were not included. CHIEF COMPLAINT: Yani Joseph is a 65 y.o. female who presents to [facility] in follow-up for LILO The patient was unaccompanied. INTERVAL EVENTS Since last seen, Ms. Joseph reports she had her titration study. She did get the mask and chin strap(nasal cushion) and did not like it. She is waiting for a nasal pillow from the DME She had some dry mouth when she tried CPAP last. She tried CPAP twice. Did not notice a change in how she felt Iron - taking iron every other day due to frequent PLMS Not noticing any change in her sleep Denies excessive daytime sleepiness, denies sleepiness with driving [place] Sleepiness Scale: Sitting and Reading: Slight Chance Watching TV: Never Sitting inactive in a public place (theater, meeting): Never As a passenger in a car for an hour without a break: (!) Moderate Chance Lying down in the afternoon to rest: Never Sitting and talking to someone: Never Sitting quietly after lunch (without alcohol): Never In a car, while stopped for a few minutes in traffic: Never Total: 3 I personally reviewed this data PAST MEDICAL HISTORY: Patient Active Problem List Diagnosis Calculus of ureter Graves' disease Hyperthyroidism Overweight with body mass index (BMI) 25.0-29.9 [facility] LILO (obstructive sleep apnea) Hypokalemia Medullary cystic kidney Essential hypertension Moderate persistent asthma without complication Chronic pansinusitis Nasal polyp Kidney stone Chronic ethmoidal sinusitis Deviated nasal septum Hiatal hernia Gastroesophageal reflux disease Asthma Personal history of adenomatous and serrated colon polyps Rectal polyp Abdominal pain Migraine Past Medical History: Diagnosis Date Asthma History of angina 03/2009 Hypertension Hypothyroid Kidney calculus 05/23/2025 Stents Kidney stones 02/02/2024 Pneumonia of right upper lobe due to infectious organism 01/17/2025 [facility] embolism [facility] 2009 Shortness of breath Sinusitis chronic, frontal 02/2024 Sleep apnea Sleep apnea with use of continuous positive airway pressure (CPAP) Thoracic back pain 12/2024 Visual impairment Past Surgical History: Procedure Laterality Date APPENDECTOMY CARDIAC CATHETERIZATION 2009 CHOLECYSTECTOMY COLONOSCOPY DIAGNOSTIC / SCREENING N/A 10/20/2024 Performed by Mariusz Plata DO at [facility] HERNIA REPAIR 2009 HIATAL HERNIA REPAIR HYSTERECTOMY 1993 complete KNEE ARTHROSCOPY W/ DEBRIDEMENT Left 2013 OOPHORECTOMY Bilateral 1994 SINUS SURGERY 06/17/2024 ALLERGIES: No Known Allergies MEDICATIONS: Current Outpatient Medications on File Prior to Visit Medication Sig Dispense Refill alendronate (FOSAMAX) 70 mg tablet Take 1 tablet (70 mg total) by mouth every 7 days. In a.m. with water on empty stomach, nothing else by mouth and remain upright for 30min 4 tablet 11 aspirin 81 mg Take 1 tablet (81 mg total) by mouth in the morning. cyproheptadine (PERIACTIN) 4 mg tablet Take 1 tablet (4 mg total) by mouth once daily at bedtime. ferrous sulfate 325 (65 FE) MG tablet Take 1 tablet (325 mg total) by mouth daily with breakfast. 90 tablet 0 fluticasone propionate (FLONASE) 50 mcg/actuation nasal spray Administer 2 sprays into each nostrilin the morning. losartan (COZAAR) 50 mg tablet TAKE 1 TABLET BY MOUTH DAILY 90 tablet 1 methIMAzole (TAPAZOLE) 10 mg tablet Take 1 tablet (10 mg total) by mouth 3 (three) times a week. montelukast (SINGULAIR) 10 mg tablet Take 1 tablet (10 mg total) by mouth nightly. 90 tablet 2 multivitamin tablet Take 1 tablet by mouth in the morning. phentermine 37.5 MG capsule Take 1 capsule (37.5 mg total) by mouth every morning before breakfast.30 capsule 0 rimegepant (NURTEC ODT) 75 mg disintegrating tablet Dissolve 1 tablet (75 mg total) on tongue once as needed for migraine for up to 1 dose. 1 tablet 0 SYMBICORT 160-4.5 mcg/actuation inhaler INHALE 2 PUFFS BY MOUTH TWICE DAILY 10.2 g 5 No current facility-administered medications on file prior to visit. PHYSICAL EXAMINATION: BP 136/78 (BP Site: Right Arm, BP Postition: Sitting) Pulse 92 Ht 165.1 cm (5' 5 ) Wt 81.7 kg(180 lb 1.6 oz) SpO2 96% BMI 29.97 kg/m General appearance: no acute distress. Eyes: no conjunctival erythema, no scleral icterus. Ears, Nose, Mouth and Throat: external ears unremarkable, external nose and mouth unremarkable Neck: trachea position midline. Respiratory: normal work of breathing Skin: No rash/ lesions/ulcers/ induration/subcutaneous nodules in visible regions. Neurologic: face symmetric at rest and activation, no dysarthria, no tremor or abnormal movements Mental Status: Cognitive: Alert and oriented. Insight good. Judgment good. DATA: I personally reviewed the following: Lab Results Component Value Date WBC 10.7 01/18/2025 HGB 11.7 01/18/2025 HCT 34.3 (L) 01/18/2025 MCV 88 01/18/2025 PLT 251 01/18/2025 Component Latest Ref Rng 05/14/2025 Iron 50 - 170 ug/dL 52 Transferrin 168 - 336 mg/dL 300 Iron binding capacity 250 - 425 ug/dL 420 IRON SATURATION 15 - 50 % SATURATION 12 (L) Ferritin 11 - 307 ng/mL 15 Legend: (L) Low Chemistry Component Value Date/Time K 4.5 06/03/2025 1201 CL 101 06/03/2025 1201 CL 102 05/06/2024 1408 CO2 30 06/03/2025 1201 BUN 13 06/03/2025 1201 CREATININE 0.66 06/03/2025 1201 CREATININE 0.71 05/06/2024 1408 GLU 99 06/03/2025 1201 Component Value Date/Time CALCIUM 9.4 06/03/2025 1201 ALKPHOS 108 06/03/2025 1201 AST 22 06/03/2025 1201 AST 23 02/20/2023 0930 ALT 34 (H) 06/03/2025 1201 ALT 34 (H) 02/20/2023 0930 Sleep Study Results: Titration study on 2025-04-07 (Ejkpqs=546.0 lbs; BMI=30.5 kg/m2) DIAGNOSIS: Obstructive Sleep Apnea (LILO) (G47.33) Periodic Limb Movements of Sleep - ICD Code R25.9 COMMENTS: This CPAP titration tested settings of 4-14 cm of water with EPR of 1-3. A CPAP setting of 14 cm ofwater with EPR of effectively treated LILO and was tested in lateral REM and NREM sleep. A chin strap was added during the study due mouth leak. The patient reported trouble getting comfortable and NREM sleep was fragmented. There were very frequent periodic leg movements throughout. Home sleep apnea test on 07/28/2024 (THADDEUS (3%)=15.4 events/hour; THADDEUS (4%)=6.7 events/hour; Jerod SpO2=84.0%; Eyzqoj=360.0 lbs; BMI=30.7 kg/m2) DIAGNOSIS: ? Obstructive Sleep Apnea (G47.33) COMMENTS: This home sleep apnea test demonstrates obstructive sleep apnea. Please note that home sleep testing may underestimate sleep apnea severity due to lack of EEG monitoring. TREATMENT CONSIDERATIONS: ? A trial of nCPAP therapy is recommended. IMPRESSION/RECOMMENDATIONS: 1. LILO (obstructive sleep apnea) 2. Difficulty using continuous positive airway pressure (CPAP) nasal mask 3. Iron deficiency 4. PLMS Yani Joseph is a 65 y.o. female with medical problems including as above, presenting in follow up for moderate LILO THADDEUS 15.4 spO2 min 84%, currently not using her CPAP. She had a titration which recommended dream wear mask and chin strap with CPAP 14 cm of water. Is waiting for another mask as she did not like this set up. Given sample dream wear FFM today Encouraged to retry CPAP, use regularly, each night all night We discussed alternatives, not candidate for OMAD due to missing dentition and she is not interested in surgical treatments Weight loss recommended. Discussed that LILO can worsen with weight gain and improve and some cases resolve with weight loss, as well as weight loss improving cardio-metabolic outcomes. Recheck iron/ferritin/TIBC in 2 mo RV in 4 mo EDUCATION: Pathophysiology of LILO was explained. Health risks associated with untreated LILO were discussed (cardiopulmonary, cerebrovascular, and anesthesia/sedative-related). Risks associated with excessive daytime sleepiness, particularly while driving/operating machinery were discussed. The patient was instructed to avoid such activities if feeling sleepy, and to stop the activity if sleepiness occurs (char puller at the next safe opportunity if driving). LILO treatment options were discussed. CPAP is the most predictably effective treatment. Interim measures to reduce obstructive sleep apnea severity were recommended (avoidance of the supine position and elevation of the upper body and during sleep). Above plan as discussed with the patient who acknowledged understanding and agreement. CLAUDIO TRUJILLO MD [facility] [address] [place] [id number] documented in this [facility]28-[facility] Instructions* Patient Instructions* Claudio Trujillo MD - 07/12/2025 12:30 PM EDT Dream wear FFM sample Will need chin strap Check iron in 2 months - hold iron supplement at least 2 days before documented in this [facility]-20-20[facility] History of Present illness Narrative* Gera Burciaga, - 07/04/2025 4:30 PM EDT Subjective Patient ID: Yani Joseph is a 65 y.o. female. Yani presents today for the 2nd month of her weight loss therapy. She is taking phentermine and tolerating it well. She did have a migraine recently that she feels was brought on by motion. She wentto a movie recently with a friend who did a lot of quick starts and stops with driving. It progressively got worse and then she ended up going to the emergency room today. She was treated in his feeling much better. She did take a sample of Ubrelvy but it did not help. She is open to trying something else. The Ubrelvy was too expensive for her. The following portions of the patient's history were reviewed and updated as appropriate: allergies, current medications, past family history, past medical history, past social history, past surgicalhistory, problem list, and medication reconciliation was completed including current medication andpost discharge medication. Review of Systems Constitutional: Negative. Eyes: Negative. Respiratory: Negative. Cardiovascular: Negative. Gastrointestinal: Negative. Neurological: Positive for headaches. Psychiatric/Behavioral: Negative. Objective Physical Exam Vitals reviewed. [...] Diagnoses and all orders for this visit: Overweight She had a nice weight loss with her 1st month of therapy. She lost 7 lb it has improved diet and exercise. She is congratulated on her weight loss and encouraged to continue. She is seeing high risk medication with benefit. We will continue it for another month. BMI 29.0-29.9,adult As above Essential hypertension Blood pressure is just a bit high. It was okay earlier today in the emergency room Obesity (BMI 30-39.9) - phentermine 37.5 MG capsule; Take 1 capsule (37.5 mg total) by mouth every morning before breakfast. She is no longer obese. Other migraine without status migrainosus, not intractable Sample of Nurtec given. She will call if that works better than the Ubrelvy. Other orders - rimegepant (NURTEC ODT) 75 mg disintegrating tablet; Dissolve 1 tablet (75 mg total) on tongue once as needed for migraine for up to 1 dose. documented in this [facility]Mag[facility]ca [id number] History of Present illness Narrative* Toni Bansal MD - 06/08/2025 9:15 AM EDT Images from the original note were not included. Sinus & Skull Base Surgery Chief Complaint: 1. Chronic sinusitis with nasal polyposis s/p bilateral sinus surgery 06/17/2024 2. Nasal airway obstruction s/p septoplasty, bilateral submucosal inferior turbinate reductions 06/17/2024 3. Decreased sense of smell 4. Asthma, allergic rhinitis 5. Obstructive sleep apnea on CPAP History Of Present Illness: Yani Joseph presents since last being seen 12/08/2024. She has done very well in regard to her sinonasal symptoms. Her sense of smell fell off over the summer but she is not bothered by this. Main Symptoms: Patient does not have anterior nasal drainage. Patient does not have posterior nasal drainage. Patient does not have nasal airway obstruction. Patient does not have facial pain. Patient does not have facial pressure. Patient has decreased sense of smell. Decreased 0 % of normal. Fell off over the Summer. Associated Symptoms: Patient does not have headaches. Patient does not have throat clearing. Patient does not have coughing. Patient does not have dysphonia. Patient does not have nasal bleeding. Medications currently on for sinonasal symptoms: Mometasone rinse Qday (5 out of 7 days) Fluticasone 2 puffs each side Qday Active Problems: Problem List[1] Past Medical History: She has a past medical history of Asthma (03/2019), Disease of thyroid gland (03/2019), GERD (gastroesophageal reflux disease), and Sleep apnea (11/2023). Surgical History: She has a past surgical history that includes Cholecystectomy; Kidney stone surgery; Colonoscopy; Upper gastrointestinal endoscopy; Hysterectomy; Oophorectomy; and Hernia repair. Family History: Family History[2] Social History: She reports that she has quit smoking. Her smoking use included cigarettes. She has never used smokeless tobacco. She reports that she does not currently use alcohol. She reports that she does not use drugs. Allergies: Patient has no known allergies. Current Meds: Current Medications[3] Vitals: Visit Vitals Ht 1.651 m (5' 5 ) Wt 84.9 kg (187 lb 3.2 oz) BMI 31.15 kg/m OB Status Postmenopausal Smoking Status Former BSA 1.97 m Physical Exam: Nose: On external exam there are neither lesions nor asymmetry of the nasal tip/dorsum. On anteriorrhinoscopy, visualization posteriorly is limited on anterior examination. For this reason, to adequately evaluate posteriorly for masses, source of epistaxis, polypoid disease, debridement, and/or signs of infections, nasal endoscopy is indicated. (Please see procedure below.) SINONASAL ENDOSCOPY (CPT 53213): To better evaluate the patient's symptoms, sinonasal endoscopy is indicated. After discussion of risks and benefits, and topical decongestion and anesthesia, an endoscope was used to perform nasal endoscopy on each side. A time out identifying the patient, the procedure, the location of the procedure and any concerns was performed prior to beginning the procedure. Findings: Examination of the right nasal cavity revealed patent and normal- appearing maxillary and ethmoid sinuses. There was edema in the frontal drainage pathway. There was stable scarring at sphenoid face and I could not directly visualize into the sinus. Examination of the left nasal cavity revealed patent and normal-appearing maxillary and ethmoid sinuses. The sphenoid was patent but the sphenoidotomy was narrow. There was edema in the frontal drainage pathway. Provider Impressions: 1. Chronic sinusitis with nasal polyposis s/p bilateral sinus surgery 06/17/2024 2. Nasal airway obstruction s/p septoplasty, bilateral submucosal inferior turbinate reductions 06/17/2024 3. Decreased sense of smell 4. Asthma, allergic rhinitis 5. Obstructive sleep apnea on CPAP Discussion: Yani Joseph and I discussed her exam and symptoms. She was comfortable continuing hercurrent intranasal medical therapy. If she discontinues the medical therapy, particularly the mometasone, I asked her to follow-up with me 3 months after the date of discontinuation. If she continues this therapy moving forward I would like to see her back in 12 months. We again discussed the scarring at her right sphenoid face and I recommended observation. We certainly can at some point in time obtain repeat imaging to determine if the sinuses patent or not. All questions were answered. Scribe and Provider Attestation By signing my name below, I, Luz Marina Espinal, attest that this documentation has been prepared under the direction and in the presence of Toni Bansal MD. All medical record entries made by the scribe were at the direction of Toni Bansal MD or personally dictated by Toni Bansal MD. I, Toni Bansal MD, have reviewed the chart and agree that the record accurately reflects my personal performance of the history, physical exam, discussion and plan. Signature: Toni Bansal MD [1] Patient Active Problem List Diagnosis Deviated nasal septum Chronic ethmoidal sinusitis HTN (hypertension) Asthma LILO (obstructive sleep apnea) History of migraine headaches Nephrolithiasis Gastroesophageal reflux disease Hiatal hernia Hyperthyroidism [2] No family history on file. [3] Current Outpatient Medications: alendronate (Fosamax) 70 mg tablet, Take 1 tablet (70 mg) by mouth once a week., Disp: , Rfl: aspirin 81 mg EC tablet, 1 (one) time each day at the same time, Disp: , Rfl: budesonide-formoteroL (Symbicort) 160-4.5 mcg/actuation inhaler, Inhale 2 puffs twice a day., Disp:, Rfl: cyproheptadine (Periactin) 4 mg tablet, Take 1 tablet (4 mg) by mouth once daily at bedtime., Disp:, Rfl: fluticasone (Flonase Sensimist) 27.5 mcg/actuation nasal [...] - 10)., Disp: 16 tablet, Rfl: 0 documented in this [facility] Work Phone: [phone]) 743-313609-19-2025 History of Present illness Narrative* Gera Thakkar Patrica, DO - 06/03/2025 11:00 AM EDT Subjective Patient ID: Yani Joseph is a 65 y.o. female. Yani presents today for her annual wellness exam. She has no new concerns for me today. She is taking her medications. She does not have any side effects. She does exercise. She walks nearly everyday for about 45 minutes. Walks 1.5-2 miles. She had an episode of kidney stones over the summer. It has been her 4th episode of kidney stones. They broke it up and so she does not know what it was made out of. Her asthma has been doing well with current regimen. The following portions of the patient's history were reviewed and updated as appropriate: allergies, current medications, past family history, past medical history, past social history, past surgicalhistory, problem list, and medication reconciliation was completed including current medication andpost discharge medication. Review of Systems Constitutional: Negative. HENT: Negative. Eyes: Negative. Respiratory: Negative. Cardiovascular: Negative. Gastrointestinal: Negative. Endocrine: Negative. Genitourinary: Negative. Musculoskeletal: Negative. Skin: Negative. Allergic/Immunologic: Negative. Neurological: Negative. Psychiatric/Behavioral: Negative. Objective Physical Exam Vitals reviewed. Constitutional: General: She is not in acute distress. Appearance: She is obese. She is not ill-appearing. HENT: Head: Normocephalic. Right Ear: Tympanic membrane, ear canal and external ear normal. Left Ear: Tympanic membrane, ear canal and external ear normal. Nose: Nose normal. Right Turbinates: Pale. Left Turbinates: Pale. Mouth/Throat: Lips: [place]. Mouth: Mucous membranes are moist. Pharynx: Oropharynx is clear. Uvula midline. No pharyngeal swelling. Eyes: General: No scleral icterus. Extraocular Movements: Extraocular movements intact. Conjunctiva/sclera: Conjunctivae normal. Neck: Vascular: No carotid bruit. Cardiovascular: Rate and Rhythm: Normal rate and regular rhythm. Pulses: Normal pulses. Heart sounds: Normal heart sounds. No murmur heard. Pulmonary: Effort: Pulmonary effort is normal. No respiratory distress. Breath sounds: Normal breath sounds. No wheezing, rhonchi or rales. Abdominal: General: Bowel sounds are normal. There is no distension. Palpations: Abdomen is soft. There is no mass. Tenderness: There is no abdominal tenderness. There is no guarding or rebound. Hernia: No hernia is present. Musculoskeletal: Cervical back: Neck supple. Right lower leg: No edema. Left lower leg: No edema. Lymphadenopathy: Cervical: No cervical adenopathy. Skin: General: Skin is warm and dry. Neurological: General: No focal deficit present. Mental Status: She is oriented to person, place, and time. Cranial Nerves: No cranial nerve deficit. Psychiatric: Attention and Perception: Attention normal. Mood and Affect: Mood and affect normal. Speech: Speech normal. Behavior: Behavior normal. Behavior is cooperative. Thought Content: Thought content normal. Cognition and Memory: Cognition and memory normal. Judgment: Judgment normal. Assessment/Plan Yani was seen today for annual exam. Diagnoses and all orders for this visit: Well adult exam - Comprehensive metabolic panel; Future - Lipid profile; Future - Lipid profile - Comprehensive metabolic panel Health maintenance discussed. Check CMP and lipids. Migraine without aura, not intractable, without status migrainosus - cyproheptadine (PERIACTIN) 4 mg tablet; Take 1 tablet (4 mg total) by mouth once daily at bedtime. Stable. Continue current regimen Obesity (BMI 30-39.9) - phentermine 37.5 MG capsule; Take 1 capsule (37.5 mg total) by mouth every morning before breakfast. She is obese. She would benefit from weight loss. Patient noted to have elevated BMI and the following intervention(s) were applied: referral to weight management program, encouragement to exercise, and prescribed diet education. We will start phentermine. Risks and benefits of medication discussed. She would like to try. She has hypertension and high cholesterol so she can get down to 27% BMI Mild intermittent asthma without complication Stable. Continue current orders Other orders - methIMAzole (TAPAZOLE) 10 mg tablet; Take 1 tablet (10 mg total) by mouth 3 (three) times a week. - fluticasone propionate (FLONASE) 50 mcg/actuation nasal spray; Administer 2 sprays into each nostril in the morning. - multivitamin tablet; Take 1 tablet by mouth in the morning. documented in this encounterPorter [facility] CenterBrightView Systems [id number] NotePatient Education Cystoscopy with Stent Removal ??? Voiding after the procedure: there may be some pain, burning, urgency, frequency and blood tinged urine following the procedure. These symptoms usually resolve within 2-5 days. Drink the amount of fluid it takes to keep the urine pink to yellow or clear in color. Drinking enough water and fluids will help to ease any discomfort after your procedure. ??? If you are having problems that seem out of the ordinary, please call. ??? If unable to contact your physician and you feel it is an emergency, go to the nearest emergency room or call 911 ??? Diet ??? you may resume your normal diet. ??? Activity ??? you may resume your normal activities ??? Call if you have a fever over 100 degrees. Nephrology Dietary Guidelines to Help Prevent Kidney Stones Kidney stones are deposits of minerals and salts that form inside your kidneys. Your risk of developing kidney stones may be greater depending on your diet, your lifestyle, the medicines you take, and whether you have certain medical conditions. Most people can lower their risks of developing kidney stones by following these dietary guidelines. Your dietitian may give you more specific instructions depending on your overall health and the type of kidney stones you tend to develop. What are tips for following this plan? Reading food labels ??? Choose foods with no salt added or low-salt labels. Limit your salt (sodium) intake to lessthan 1,500 mg a day. ??? Choose foods with calcium for each meal and snack. Try to eat about 300 mg of calcium at each meal. Foods that contain 200?500 mg of calcium a serving include: ? 8 oz (237 mL) of milk, bwlpjpx-leuxyxnhbchv-ppxee milk, and calcium- fortifiedfruit juice. Calcium-fortified means that calcium has been added to these drinks. ? 8 oz (237 mL) of kefir, yogurt, and soy yogurt. ? 4 oz (114 g) of tofu. ? 1 oz (28 g) of cheese. ? 1 cup (150 g) of dried figs. ? 1 cup (91 g) of cooked broccoli. ? One 3 oz (85 g) can of sardines or mackerel. Most people need 1,000?1,500 mg of calcium a day. Talk to your dietitian about how much calcium is recommended for you. Shopping ??? Buy plenty of fresh fruits and vegetables. Most people do not need to avoid fruits and vegetables, even if these foods contain nutrients that may contribute to kidney stones. ??? When shopping for convenience foods, choose: ? Whole pieces of fruit. ? Pre-made salads with dressing on the side. ? Low-fat fruit and yogurt smoothies. ??? Avoid buying frozen meals or prepared deli foods. These can be high in sodium. ??? Look for foods with live cultures, such as yogurt and kefir. ??? Choose high-fiber grains, such as whole-wheat breads, oat bran, and wheat cereals. Cooking ??? Do not add salt to food when cooking. Place a salt shaker on the table and allow each person toadd their own salt to taste. ??? Use vegetable protein, such as beans, textured vegetable protein (TVP), or tofu, instead of meat in pasta, casseroles, and soups. Meal planning ??? Eat less salt, if told by your dietitian. To do this: ? Avoid eating processed or pre-made food. ? Avoid eating fast food. ??? Eat less animal protein, including cheese, meat, poultry, or fish, if told by your dietitian. To do this: ? Limit the number of times you have meat, poultry, fish, or cheese each week. Eat a diet free of meat at least 2 days a week. ? Eat only one serving each day of meat, poultry, fish, or seafood. ? When you prepare animal proteins, cut pieces into small portion sizes. For most meat and fish, one serving is about the size of the palm of your hand. ??? Eat at least five servings of fresh fruits and vegetables each day. To do this: ? Keep fruits and vegetables on hand for snacks. ? Eat one piece of fruit or a handful of berries with breakfast. ? Have a salad and fruit at lunch. ? Have two kinds of vegetables at dinner. ??? You may be told to limit foods that are high in a substance called oxalate. These include: ? Spinach (cooked), rhubarb, beets, sweet potatoes, and Iranian chard. ? Peanuts. ? Potato chips, nigerian fries, and baked potatoes with skin on. ? Nuts and nut products. ? Chocolate. ??? If you regularly take a diuretic medicine, make sure to eat at least 1 or 2 servings of fruits or vegetables that are high in potassium each day. These include: ? Avocado. ? Banana. ? [place], prune, carrot, or tomato juice. ? Baked potato. ? Cabbage. ? Beans and split peas. Lifestyle ??? Drink enough fluid to keep your urine pale yellow. This is the most important thing you can do.Spread your fluid intake throughout the day. ??? If you drink alcohol: ? Limit how much you have to: ? 0?1 drink a day for women who are not . ? 0?2 drinks a day for men. ? Know how much alcohol is in your drink. In the [place] one drink equals one 12 oz bottle of b (morecontent not included)...[facility] 05-30-2025 NoteHistory and Physical Patient: YANI JOSEPH Age: 65 years Sex: Female : 1960 Associated Diagnoses: None Author: Nohemi Garcia MD Preoperative Information Indication for procedure and diagnosis: 65-year-old female with a history of left distal ureteral stone status post ureteroscopy, laser lithotripsy, stent placement on 05/23/2025 here for cystoscopy and stent removal. Chief Complaint As above Review of Systems All systems reviewed, negative except as mentioned above Health Status Allergies: Allergic Reactions (Selected) No Known Allergies No Known Medication Allergies Current medications: (Selected) Prescriptions Prescribed Naprosyn 500 mg Tab: 500 mg = 1 tab(s), Oral, BID, PRN for pain, # 20 tab(s), Refills(s) 0, Pharmacy: [facility], 165, cm, 05/20/25 14:46:00 EDT, Height/Length Dosing, 83.5, kg, 05/20/25 14:46:00 EDT, Weight Dosing Zofran ODT 4 mg Tab-Dis: 4 mg = 1 tab(s), Oral, TID, # 15 tab(s), Refills(s) 0, Pharmacy: [facility], 165, cm, 05/20/25 14:46:00 EDT, Height/Length Dosing, 83.5, kg, 05/20/25 14:46:00EDT, Weight Dosing montelukast 10 mg Tab: 10 mg = 1 tab(s), Oral, Bedtime, # 30 tab(s), Refills(s) 2, Pharmacy: [facility], 165.1, cm, 11/14/20 12:31:00 EST, Height/Length Dosing, 82.8, kg, 11/14/20 12:31:00 EST, Weight Dosing Documented Medications Documented Multi Vitamins oral tablet: 1 tab(s), Oral, Daily, Refill(s) 0, Prophylaxis Symbicort 160/4.5 inhalation aerosol with adapter: 2 puff(s), Inhalation, BID, Refill(s) 0 alendronate 70 mg Tab: Refills(s) 0 aspirin 81 mg Oral EC Tab: 81 mg = 1 tab(s), Oral, Daily, Refills(s) 0, Blood Thinner cyproheptadine 4 mg Tab: 4 mg = 1 tab(s), Oral, Bedtime, Refills(s) 0, Headache losartan: 50 mg, Oral, Daily, Refills(s) 0 methimazole 10 mg Tab: 10 mg = 1 tab(s), Oral, MonWedFri, Refills(s) 0, Thyroid Problem list: All Problems Asymptomatic bacteriuria / SNOMED CT 9994792224 / Confirmed BMI 27.0-27.9,adult / SNOMED CT 4168469290 / Confirmed Graves disease / SNOMED CT 721095022 / Confirmed Hypertension / SNOMED CT 8423678818 / Confirmed Hyperthyroidism / SNOMED CT 64424187 / Confirmed Kidney stone / SNOMED CT 460742751 / Confirmed Pulmonary embolus / SNOMED CT 46183628 / Confirmed Sinusitis / SNOMED CT 49537859 / Confirmed Resolved: Ureteral stone / SNOMED CT 13812513 Histories Past Medical History: Resolved Ureteral stone ([id number]): Resolved. Family History: Diabetes mellitus type 2 Father Mother Leukemia Father Procedure history: Colonoscopy ([id number]) on 10/18/2024 at 64 Years. Cystoscopic removal of ureteric stent ([id number]) on 02/19/2024 at 63 Years. Cystoscopy ([id number]) on 01/24/2022 at 61 Years. Esophagogastroduodenoscopy and biopsy ([id number]) on 01/08/2021 at 60 Years. Colonoscopy ([id number]) on 10/14/2019 at 59 Years. Appendectomy ([id number]). Total hysterectomy (793255403). Cholecystectomy (28111735). Repair of diaphragmatic hiatal hernia by thoracoabdominal approach (58221807). History of knee surgery ([id number]). Comments: 11/14/2020 16:19 MARIO Vidales RN, Krista tinajero. Social History Social & Psychosocial Habits Alcohol 03/08/2025 Risk Assessment: Denies Alcohol Use Substance Abuse 03/08/2025 Risk Assessment: Denies Substance Abuse Tobacco 03/08/2025 Risk Assessment: Denies Tobacco Use 03/08/2025 Tobacco Use: Former smoker, quit more Smokeless tobacco use: Never Type: Cigarettes . Physical Examination No qualifying data available General Appearance: alert , no acute distress, well nourished Head: normocephalic . Eyes: normal orbit and globe. ENMT: normal examination of external ears. Chest: symmetric chest rise, respirations non labored . Cardiovascular: regular rate and rhythm. Abdomen: soft , non distended, no tenderness Genitourinary: bladder nonpalpable, no flank tenderness. Skin: warm, dry Psychiatric: cooperative, affect appropriate for age, normal judgement, euthymic mood. Impression and Plan Impression: 65-year-old female with a history of left distal ureteral stone status post ureteroscopy, laser lithotripsy, stent placement on 05/23/2025 here for cystoscopy and stent removal. Plan: Proceed with planned surgery per clinic note, risks/benefits previously discussed and documentedMercy Health St. [facility] HospitalComment on above:Result Comment: Electronically Signed By: Jose THORNE, Nohemi Rogers.nila\Date and Time Signed: 05/30/25 10:[id number] Hospital Discharge instructions Additional Instructions Take Tylenol 650-1000 mg every 6 hours, alternate with ibuprofen 400-800mg every 6 hours in between for pain relief. Tamsulosin daily for stent discomfort. Take at night if you get dizzy or lightheaded, stop if unable to tolerate. Mirabegron daily as needed for stent pain. If too expensive, call office for Oxybutynin 5 mg every 8 hours as needed for bladder spasms/stent pain. May cause dry mouth/eyes and constipation. Take stool softeners. Stop if you are unable to urinate. You can buy AZO (phenazopyridine) [id number] and use as needed for burning with urination. This will make your urine orange/red. Drink plenty of water and fluids You must follow up to ensure your stent is removed. Failure to do so may result in recurrent infections and renal failure. Start prophylactic antibiotics the morning of stent removal in 2 weeks.[facility] Work Phone: [phone]) 539-552509-05-2025 NoteED Patient Education Note Urology Kidney Stones Kidney stones are solid, [...] causes? Kidney stones may be caused by: ??? A condition in which certain glands produce too much parathyroid hormone (primary hyperparathyroidism), which causes too much calcium buildup in the blood. ??? A buildup of uric acid crystals in the bladder (hyperuricosuria). Uric acid is a chemical that the body produces when you eat certain foods. It usually leaves the body in the urine. ??? Narrowing (stricture) of one or both of the ureters. ??? A kidney blockage that is present at (congenital obstruction). ??? Past surgery on the kidney or the ureters. What increases the risk? The following factors may make you more likely to develop this condition: ??? Having had a kidney stone in the past. ??? Having a family history of kidney stones. ??? Not drinking enough water. ??? Eating a diet that is high in protein, salt (sodium), or sugar. ??? Being overweight or obese. What are the signs or symptoms? Symptoms of a kidney stone may include: ??? Pain in the side of the abdomen, right below the ribs (flank pain). Pain usually spreads (radiates) to the groin. ??? Needing to urinate often or urgently. ??? Painful urination. ??? Blood in the urine (hematuria). ??? Nausea. ??? Vomiting. ??? Fever and chills. How is this diagnosed? This condition may be diagnosed based on: ??? Your symptoms and medical history. ??? A physical exam. ??? Blood tests. ??? Urine tests. These may be done before and after the stone passes out of your body through urination. ??? Imaging tests, such as a CT scan, abdominal X-ray, or ultrasound. ??? A procedure to examine the inside of the bladder (cystoscopy). How is this treated? Treatment for kidney stones depends on the size, location, and makeup of the stones. Kidney stones will often pass out of the body through urination. You may need to: ??? Increase your fluid intake to help pass the stone. In some cases, you may be given fluids through an IV and may need to be monitored in the hospital. ??? Take medicine for pain. ??? Make changes in your diet to help prevent kidney stones from coming back. Sometimes, procedures are needed to remove a kidney stone. This may involve: ??? A procedure to break up kidney stones using: ? A focused beam of light (laser therapy). ? Shock waves (extracorporeal shock wave lithotripsy). ??? Surgery to remove kidney stones. This may be needed if you have severe pain or have stones thatblock your urinary tract. Follow these instructions at home: Medicines ??? Take eanl-fyz-dlbaovc and prescription medicines only as told by your health care provider. ??? Ask your health care provider if the medicine prescribed to you requires you to avoid driving or using heavy machinery. Eating and drinking ??? Drink enough fluid to keep your urine pale yellow. You may be instructed to drink at least 8?10glasses of water each day. This will help you pass the kidney stone. ??? If directed, change your diet. This may include: ? Limiting how much sodium you eat. ? Eating more fruits and vegetables. ? Limiting how much animal protein you eat. Animal proteins include red meat, poultry, fish, and eggs. ? Eating a normal amount of calcium (1,000?1,300 mg per day). ??? Follow instructions from your health care provider about eating or drinking restrictions. General instructions ??? Collect urine samples as told by your health care provider. You may need to collect a urine sample: ? 24 hours after you pass the stone. ? 8?12 weeks after you pass the kidney stone, and every 6?12 months after that. ??? Strain your urine every time you urinate, for as long as directed. Use the strainer that your health care provider recommends. ??? Do not throw out the kidney stone after passing it. Keep the stone so it can be tested by your health care provider. Testing the makeup of your kidney stone may help prevent you from getting kidney stones in the future. ??? Keep all follow-up visits. You may need follow-up X-rays or ultrasounds to make sure that your stone has passed. How is this prevented? To prevent another kidney stone: ??? Drink enough fluid to keep your urine pale yel (more content not included)...[facility]09-[facility] History of Present illness Narrative* Argenis Rod CMA - 05/17/2025 12:13 PM EDT Images from the original note were not included. Called and left voicemail for patient to call office to review results and AD recommendations as follows documented in this encounterK[facility]09-02-2025 Miscellaneous Notes* Telephone Encounter - Claudio Trujillo MD - 05/17/2025 12:13 PM EDT Please let her know that labs show iron deficiency I do want to get an updated CBC to see if she is also anemic I have ordered this Recommend starting oral iron supplements but needs to have the CBC drawn before starting Start ferrous sulfate 325 mg (contains 65 mg elemental iron per tablet) orally every other day and then increasing to once daily if tolerated (in terms of side effects such as constipation or upset stomach) This is over the counter but a prescription was sent to your preferred pharmacy on file. Iron should be combined with a low dose vitamin C supplement (100-200 mg is sufficient) or a small glass of orange juice to enhance absorption. Iron should NOT be taken at the same time as calcium supplements, thyroid medication (synthroid/levothyroxine), or significant amounts of dairy products. Constipation and darkened stools may occur with iron supplementation. Will repeat labs in 3-4 months documented in this encounterK[facility]09-02-2025 Telephone encounter Note* Telephone Encounter - Claudio Trujillo MD - 05/17/2025 12:13 PM EDT Please let her know that labs show iron deficiency I do want to get an updated CBC to see if she is also anemic I have ordered this Recommend starting oral iron supplements but needs to have the CBC drawn before starting Start ferrous sulfate 325 mg (contains 65 mg elemental iron per tablet) orally every other day and then increasing to once daily if tolerated (in terms of side effects such as constipation or upset stomach) This is over the counter but a prescription was sent to your preferred pharmacy on file. Iron should be combined with a low dose vitamin C supplement (100-200 mg is sufficient) or a small glass of orange juice to enhance absorption. Iron should NOT be taken at the same time as calcium supplements, thyroid medication (synthroid/levothyroxine), or significant amounts of dairy products. Constipation and darkened stools may occur with iron supplementation. Will repeat labs in 3-4 months [facility] [id number] Miscellaneous Notes* Telephone Encounter - Claudio Trujillo MD - 04/21/2025 12:01 PM EDT Pressure change ordered, please fax She also needs to add chin strap She had very frequent PLMS, recommend checking iron labs, ordered today RV 07/12/25 Titration study on 2025-04-07 (Jzafpt=386.0 lbs; BMI=30.5 kg/m2) DIAGNOSIS: Obstructive Sleep Apnea (LILO) (G47.33) Periodic Limb Movements of Sleep - ICD Code R25.9 COMMENTS: This CPAP titration tested settings of 4-14 cm of water with EPR of 1-3. A CPAP setting of 14 cm ofwater with EPR of effectively treated LILO and was tested in lateral REM and NREM sleep. A chin strap was added during the study due mouth leak. The patient reported trouble getting comfortable and NREM sleep was fragmented. There were very frequent periodic leg movements throughout. documented in this encounterK[facility]08-07-2025 Telephone encounter Note* Telephone Encounter - Claudio Trujillo MD - 04/21/2025 12:01 PM EDT Pressure change ordered, please fax She also needs to add chin strap She had very frequent PLMS, recommend checking iron labs, ordered today RV 07/12/25 Titration study on 2025-04-07 (Bnnlhj=475.0 lbs; BMI=30.5 kg/m2) DIAGNOSIS: Obstructive Sleep Apnea (LILO) (G47.33) Periodic Limb Movements of Sleep - ICD Code R25.9 COMMENTS: This CPAP titration tested settings of 4-14 cm of water with EPR of 1-3. A CPAP setting of 14 cm ofwater with EPR of effectively treated LILO and was tested in lateral REM and NREM sleep. A chin strap was added during the study due mouth leak. The patient reported trouble getting comfortable and NREM sleep was fragmented. There were very frequent periodic leg movements throughout. [facility]07-30-2025 Miscellaneous Notes* Telephone Encounter - Ke Zurita CNA - 04/13/2025 9:41 AM EDT Called to inform patient the provider will be out of office on 05/12 and we need to reschedule theirappointment. Patient requested to call back later to reschedule documented in this encounterK[facility]07-30-2025 Telephone encounter Note* Telephone Encounter - Ke Zurita CNA - 04/13/2025 9:41 AM EDT Called to inform patient the provider will be out of office on 05/12 and we need to reschedule theirappointment. Patient requested to call back later to reschedule [facility]07-28-2025 NotePatient Education Urology Kidney Stones Kidney stones are rock-like masses that form inside of the kidneys. Kidneys are organs that make pee (urine). A kidney stone may move into other parts of the urinary tract, including: ??? The tubes that connect the kidneys to the bladder (ureters). ??? The bladder. ??? The tube that carries urine out of the body (urethra). Kidney stones can cause very bad pain and can block the flow of pee. The stone usually leaves your body through your pee. A doctor may need to take out the stone. What are the causes? Kidney stones may be caused by: ??? Too much calcium in the body. This may be caused by too much parathyroid hormone in the blood. ??? Uric acid crystals in the bladder. The body makes uric acid when you eat certain foods. ??? Narrowing of one or both of the ureters. ??? A kidney blockage that you were born with. ??? Past surgery on the kidney or the ureters. What increases the risk? You are more likely to develop this condition if: ??? You have had a kidney stone in the past. ??? Other people in your family have had kidney stones. ??? You do not drink enough water. ??? You eat a diet that is high in protein, salt (sodium), or sugar. ??? You are very overweight (obese). What are the signs or symptoms? Symptoms of a kidney stone may include: ??? Pain in the side of the belly, right below the ribs. Pain usually spreads to the groin. ??? Needing to pee often or right away. ??? Pain when peeing. ??? Blood in your pee. ??? Feeling like you may vomit (nauseous). ??? Vomiting. ??? Fever and chills. How is this treated? Treatment depends on the size, location, and makeup of the kidney stones. The stones will often pass out of the body when you pee. You may need to: ??? Drink more fluid to help pass the stone. ? In some cases, you may be given fluids through an IV tube at the hospital. ??? Take medicine for pain. ??? Change your diet to help keep kidney stones from coming back. Sometimes, you may need: ??? A procedure to break up kidney stones using a beam of light (laser) or shock waves. ??? Surgery to remove the kidney stones. Follow these instructions at home: Medicines ??? Take qnlu-fcl-kuahfdl and prescription medicines only as told by your doctor. ??? Ask your doctor if the medicine prescribed to you requires you to avoid driving or using machinery. Eating and drinking ??? Drink enough fluid to keep your pee pale yellow. ? You may be told to drink at least 8?10 glasses of water each day. This will help you pass the stone. ??? If told by your doctor, change your diet. You may be told to: ? Limit how much salt you eat. ? Eat more fruits and vegetables. ? Limit how much meat, poultry, fish, and eggs you eat. ??? Follow instructions from your doctor about what you may eat and drink. General instructions ??? Collect pee samples as told by your doctor. You may need to collect a pee sample: ? 24 hours after a stone comes out. ? 8?12 weeks after a stone comes out, and every 6?12 months after that. ??? Strain your pee every time you pee. Use the strainer that your doctor recommends. ??? Do not throw out the stone. Keep it so that it can be tested by your doctor. ??? Keep all follow-up visits. You may need X-rays and ultrasounds to make sure the stone has come out. How is this prevented? To prevent another kidney stone: ??? Drink enough fluid to keep your pee pale yellow. This is the best way to prevent kidney stones. ??? Eat healthy foods. ??? Avoid certain foods as told by your doctor. You may be told to eat less protein. ??? Stay at a healthy weight. Where to find more information ??? National Kidney Foundation (NKF): kidney.org ??? [employer] (UCF): urologyhealth.org Contact a doctor if: ??? You have pain that gets worse or does not get better with medicine. Get help right away if: ??? You have a fever or chills. ??? You get very bad pain. ??? You get new pain in your belly. ??? You faint. ??? You cannot pee. This information is not intended to replace advice given to you by your health care provider. Make sure you discuss any questions you have with your health care provider. Document Revised: 04/25/2023 Document Reviewed: 04/25/2023 [employer] Patient Education ? [address] [employer] 03-11-2025 Miscellaneous Notes* Telephone Encounter - Becca Whaley - 03/11/2025 12:07 PM EDT 03/08 received CPAP order 03/11 Scheduled CPAP at [facility], 04/07 [facility] and 03/08 Trujillo notes in epic Patient with CPAP but difficulty with mask documented in this encounterK[facility]06-27-2025 Telephone encounter Note* Telephone Encounter - Becca Whaley - 03/11/2025 12:07 PM EDT 03/08 received CPAP order 03/11 Scheduled CPAP at PM, 04/07 Confirmed via [facility] CPAP order and 03/08 Cassandra notes in epic Patient with CPAP but difficulty with mask [facility]06-24-[facility] History of Present illness Narrative* Jemma Mcintyre LPN - 03/08/2025 12:30 PM EDT Images from the original note were not included. * Claudio Trujillo MD - 03/08/2025 12:30 PM EDT Images from the original note were not included. CHIEF COMPLAINT: Yani Joseph is a 65 y.o. female who presents to [facility] in follow-up for LILO The patient was unaccompanied. INTERVAL EVENTS Since last seen by Joanna Palacios APRN, CNP , Ms. Joseph reports she has trouble using CPAP. She has an auto CPAP but cannot get a good seal on her mask. The pressure is set 7-14 cm of water. She has not had a CPAP titration study. She tried a FFM. She felt it was hard to breathe with the nasal cushion. She had sinus surgery last June but this did not seem to help with CPAP tolerance. Reports tossing and turning but denies restlessness in her legs. 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 Naps: denies [place] Sleepiness Scale: Sitting and Reading: Slight Chance Watching TV: Slight Chance Sitting inactive in a public place (theater, meeting): Never As a passenger in a car for an hour without a break: (!) Moderate Chance Lying down in the afternoon to rest: Slight Chance Sitting and talking to someone: Never Sitting quietly after lunch (without alcohol): Never In a car, while stopped for a few minutes in traffic: Never Total: 5 I personally reviewed this data PAST MEDICAL HISTORY: Patient Active Problem List Diagnosis Calculus of ureter Graves' disease Hyperthyroidism Overweight with body mass index (BMI) 25.0-29.9 Pulmonary embolism (CMS-HCC) LILO (obstructive sleep apnea) Obesity (BMI 30-39.9) Hypokalemia Medullary cystic kidney Essential hypertension Moderate persistent asthma without complication Chronic pansinusitis Nasal polyp Sinusitis Kidney stone Chronic ethmoidal sinusitis Deviated nasal septum Hiatal hernia Gastroesophageal reflux disease Asthma Personal history of adenomatous and serrated colon polyps Rectal polyp Abdominal pain Pneumonia of right upper lobe due to infectious organism Past Medical History: Diagnosis Date Asthma History of angina 03/2009 Hypertension Hypothyroid Kidney stones 02/02/2024 Pneumonia of right upper lobe due to infectious organism 01/17/2025 [facility]ism [facility] 2009 Shortness of breath Sinusitis chronic, frontal 02/2024 Sleep apnea Sleep apnea with use of continuous positive airway pressure (CPAP) Thoracic back pain 12/2024 Visual impairment Past Surgical History: Procedure Laterality Date APPENDECTOMY CARDIAC CATHETERIZATION 2009 CHOLECYSTECTOMY COLONOSCOPY DIAGNOSTIC / SCREENING N/A 10/20/2024 Performed by Mariusz Plata DO at [facility] HERNIA REPAIR 2010 HIATAL HERNIA REPAIR HYSTERECTOMY 1993 complete KNEE ARTHROSCOPY W/ DEBRIDEMENT Left 2013 OOPHORECTOMY Bilateral 1994 SINUS SURGERY 06/17/2024 ALLERGIES: No Known Allergies MEDICATIONS: Current Outpatient Medications on File Prior to Visit Medication Sig Dispense Refill alendronate (FOSAMAX) 70 [...] BY MOUTH TWICE DAILY 10.2 g 5 No current facility-administered medications on file prior to visit. PHYSICAL EXAMINATION: BP 120/72 (BP Site: Left Arm, BP Postition: Sitting) Pulse 95 Ht 165.1 cm (5' 5 ) Wt 83.9 kg (185 lb) SpO2 97% BMI 30.79 kg/m General appearance: no acute distress. Eyes: no conjunctival erythema, no scleral icterus. Ears, Nose, Mouth and Throat: external ears unremarkable, external nose and mouth unremarkable, missing many molars Neck: trachea position midline. Respiratory: normal work of breathing Skin: No rash/ lesions/ulcers/ induration/subcutaneous nodules in visible regions. Neurologic: face symmetric at rest and activation, no dysarthria, no tremor or abnormal movements Mental Status: Cognitive: Alert and oriented. Insight good. Judgment good. DATA: I personally reviewed the following: Lab Results Component Value Date WBC 10.7 [...] 01/18/2025 0444 ALT 34 (H) 02/20/2023 0930 Sleep Study Results: Home sleep apnea test on 07/28/2024 (THADDEUS (3%)=15.4 events/hour; THADDEUS (4%)=6.7 events/hour; Jerod SpO2=84.0%; Axgrch=679.0 lbs; BMI=30.7 kg/m2) DIAGNOSIS: ? Obstructive Sleep Apnea (G47.33) COMMENTS: This home sleep apnea test demonstrates obstructive sleep apnea. Please note that home sleep testing may underestimate sleep apnea severity due to lack of EEG monitoring. TREATMENT CONSIDERATIONS: ? A trial of nCPAP therapy is recommended. IMPRESSION/RECOMMENDATIONS: 1. LILO (obstructive sleep apnea) 2. Difficulty with CPAP use 3. BMI 30.0-30.9,adult Yani Joseph is a 65 y.o. female with medical problems including as above, presenting in follow up for LILO THADDEUS 15.4 spO2 min 84%, not currently using CPAP. She has an auto CPAP set 7-14 cm of water but does not tolerate this due to leak despite trying nasal and FFM. She has never had a titrationstudy. Recommend this today and it was ordered. We discussed alternatives to CPAP should she not beable to use CPAP after the titration. Not a candidate for oral appliance due to poor dentition, missing many molars. Weight loss recommended. Discussed that LILO can worsen with weight gain and improve and some cases resolve with weight loss, as well as weight loss improving cardio-metabolic outcomes. Discussed theymay be a candidate for tirzepatide for LILO and weight loss, if interested advised to discuss with PCP. She may be an Inspire candidate RV 2-3 mo after titration EDUCATION: Pathophysiology of LILO was explained. Health risks associated with untreated LILO were discussed (cardiopulmonary, cerebrovascular, and anesthesia/sedative-related). Risks associated with excessive daytime sleepiness, particularly while driving/operating machinery were discussed. The patient was instructed to avoid such activities if feeling sleepy, and to stop the activity if sleepiness occurs (char puller at the next safe opportunity if driving). LILO treatment options were discussed. CPAP is the most predictably effective treatment. Above plan as discussed with the patient who acknowledged understanding and agreement. CLAUDIO TRUJILLO MD [facility] [address] [place] [address] documented in this encounterPorter Medical CenterBrightView Systems [id number] Instructions* Patient Instructions* Claudio Trujillo MD - 03/08/2025 12:30 PM EDT CPAP titration ordered Discussed they may be a candidate for tirzepatide for LILO and weight loss, if interested advised todiscuss with PCP Thank you for visiting [facility] Sleep Medicine office. The process of completing a sleep study hasmany steps. We have detailed these steps below to help keep you informed of what to expect. The scheduling, prior authorization, and registration process: Please call [phone] option #1 to schedule your sleep study. Your sleep medicine specialist places an electronic order which is sent to [facility] sleep lab. This order is then reviewed by the lab staff and a request for approval is sent to your insurance company. If you would like to know the estimated cost of your study, you can call [phone] for general pricing information (note that you will need the following procedure codes allow them to estimate thecost: Polysomnogram (PSG), in lab diagnostic study without CPAP = 93717 PAP titration, in lab with CPAP for treatment = 90852 Home sleep study = [id number] Every study request is reviewed in our sleep prior authorization department. Some sleep studies require prior authorization and some do not (only require that the provider document the need for the study). Some sleep study orders may need to be changed based on insurance coverage. (ie in lab to home study). Please confirm with your insurance that all [facility] sleep labs are in network with your insurance. If you change your insurance after the sleep study is ordered, please call the sleep lab back to update our scheduling staff ([phone] option #1). You should receive a call prior to your sleep study to pre-register. They will be able to provide sleep study cost estimates as well. The sleep lab will also give detailed instructions on where to check in for the study. Preparing for your sleep study: Avoid napping and afternoon caffeine use prior to the sleep study. Very specific instructions on what to bring will be provided by the sleep lab (pajamas, toiletries,medications, etc). Prior to the sleep study you will be asked to choose a medical equipment supplier (DME).The DME will be providing the pap machine if ordered by the provider. What happens after my sleep study? Within 24-48 hours the data from your sleep study is sent to a plasma center technician to be reviewed and scored. The report from the plasma center technician is then sent to the sleep medicine physician and within 7-10 days the study will be formally interpreted. Once the study is completed, there will be contact from our office (through mychart, phone, or a letter) about next steps (ie treatment for sleep apnea, office appointment, cpap machine orders). If a cpap machine has been ordered and you do not hear from the equipment company within 30 days ofyour study, please call our office [phone]. FYI: Some insurance companies have strict guidelines regarding the timeline for this process. If sleep studies are not completed within 6-12 months of the office visit insurance may require another office visit. Also if cpap set up is not done within a year of the initial sleep study insurance may require another sleep study. Thank you, [facility] Department documented in this encounterKettering Health [facility]06-18-2025 History of Present illness Narrative* Manju Solo MD - 03/02/2025 9:00 AM EDT Yani Joseph is a 65 y.o. 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 2), free T3 6.41 (2.5-3.9), and she is still not feeling well. HPI: 04/02 New patient sent from [facility], Dr. Burciaga office, and for [...] 6 months (around 09/01/2025). documented in this encounterMetropolitan Saint Louis Psychiatric [id number] History of Present illness Narrative* Barbara Peters APRN-COOK ENCHILADA - 01/27/2025 11:20 AM EDT Subjective Patient ID: Yani Joseph is a 64 y.o. female. The patient is here today for discharge follow up from hospital. Transition of Care Med Rec completed? Yes Discharged medications: Medications have been reviewed and reconciled with the most recent facilitydischarge document. HPI Patient was in [facility] from January 17 to January 18 for right upper lung community-acquired pneumonia. She had gone to the ER for nausea and vomiting but her white blood cell count was elevated andrés chest x-ray revealed pneumonia. She was kept overnight for IV antibiotic therapy as she was not tolerating oral therapy. She has now finished her to oral antibiotics as an outpatient and feels backto her breathing baseline. Today is day 9 [...] andpost discharge medication. Review of Systems Constitutional: Negative [...] Yani was seen today for tcm from [facility]. Diagnoses and all orders for this visit: Community acquired pneumonia of right upper lobe of lung Her respiratory symptoms have resolved and she has finished her antibiotic therapy. Radiologist didnot recommend follow-up imaging for patient. Hiatal hernia Patient is currently having very minimal GERD symptoms intermittently and is not interested in a surgical consultation for this. Obstructive sleep apnea She should continue to determine if insurance will cover and inspire device and she is working withher maintenance fitter team on this. She should attempt to wear the mask as long as she can per night. She understands the risks of untreated sleep apnea. Patient should follow up when she is due for her wellness or sooner as needed. MALI Espinoza 02/01/25 1348 documented in this encounterKettering Health [facility]05-14-2025 History of Present illness Narrative* MALI Sheehan - 01/26/2025 3:00 PM EDT Images from the original note were not included. Chief Complaint: Yani Joseph arrives to the Sleep Clinic for initial visit on 01/26/2025. She is a 64 y.o. femalefollowed at the Sleep Clinic for LILO. HPI: [...] she is restless sleeper without machine. She hastried OTC sleeping medications in the past with the most recent being melatonin. History of sinus issues with surgery which has help in this regard. Stopped machine after this in March of 2024. She isinterested in inspire device. Recent HST Home sleep apnea test on 07/28/2024 (THADDEUS (3%)=15.4 events/h our; THADDEUS (4%)=6.7 events/hour; Jerod SpO2=84.0%; Mtzlkm=727.0 lbs; BMI=30.7 kg/m2) She denies any dyspnea, fevers, chills, hemoptysis, wheezing, or chest pain. She denies sleepiness while driving. Supplemental O2 use: none Current PAP interface: She uses a Nasal Mask. She does not use a chinstrap. She does use the heatedinline humidifier. Cleaning supplies with soap and water. [place] Sleepiness Scale: Sitting and Reading: Slight Chance [...] due to infectious organism 01/17/2025 Pulmonary embolism ([facility]) 2009 Shortness of breath Sinusitis chronic, frontal [...] 3 mL, 3 mL, intravenous, PRN, Mariusz Plata, DO sodium chloride 0.9 % flush 3 mL, 3 mL, intravenous, Q12H EARL, Mariusz Plata, DO Vitals: 01/26/25 1503 BP: 153/86 Pulse: [...] 20 min Stress: Stress Concern Present (10/23/2022) [place] [facility] [employer] [facility] - Occupational Stress Questionnaire Feeling of Stress : To some extent Social Connections: Moderately Integrated (10/23/2022) Social Connection and Isolation Panel [NHANES] Frequency of Communication with Friends and Family: More than three times a week Frequency of Social Gatherings with Friends and Family: Twice a week Attends Christianity Services: More than 4 times per year [...] 84.4 kg (186 lb) SpO2 97% BMI 30.95kg/m Physical Exam Vitals and nursing note reviewed. [...] 0444 Component Value Date/Time CALCIUM 7.4 (L) 01/18/20254 ALKPHOS 98 01/18/2025 0444 AST 26 01/18/2025 0444 AST 23 02/20/2023 0930 ALT 30 01/18/2025 0444 ALT 34 (H) 02/20/2023 0930 Lab Results Component Value Date TSH 1.40 02/20/2023 No results found. DATA: Home sleep apnea test on 07/28/2024 (THADDEUS (3%)=15.4 events/hour; THADDEUS (4%)=6.7 events/hour; Jerod SpO2=84.0%; Iomtah=913.0 lbs; BMI=30.7 kg/m2) APAP 7-14 cm H20 pressure DME: [employer] Data card was available for PAP usage [...] not to drive if sleepy, and to char puller if sleepiness occurs while driving. Above [...] errors that have escaped final proofreading. Joanna Macedo [facility] Office: [phone] 12:24 PM on 01/27/2025 CC: MALI ESPINOZA APRN-CNP 01/27/25 1224 documented in this encounterKettering Health [facility]05-14-2025 Instructions* Patient Instructions* MALI Sheehan - 01/26/2025 3:00 PM EDT If you re looking for general health and wellness resources, please visit [email or web address]. documented in this encounterKettering Health [facility]05-01-2025 History of Present illness Narrative* REJI Ramirez - 01/13/2025 11:00 AM EDT Pain Management [address] [place] [address] Patient: Yani Joseph Sex: female : 1960 [...] episode started 1 to 4 weeks ago. Theproblem occurs intermittently. The problem has been gradually [...] Hypertension Hypothyroid Kidney stones 02/02/2024 Pulmonary embolism ([facility] 2009 Shortness of breath Sinusitis chronic, frontal 02/2024 Sleep apnea Sleep apnea with use of continuous positive airway pressure (CPAP) Thoracic back pain 12/2024 Visual impairment Past Surgical History: Procedure Laterality Date APPENDECTOMY CARDIAC CATHETERIZATION 2009 CHOLECYSTECTOMY COLONOSCOPY DIAGNOSTIC / SCREENING N/A 10/20/2024 Performed by Mariusz Plata DO at [facility] HIATAL HERNIA REPAIR HYSTERECTOMY 1993 complete KNEE ARTHROSCOPY W/ DEBRIDEMENT Left 2013 OOPHORECTOMY Bilateral 1993 SINUS SURGERY 06/17/2024 No Known Allergies Family [...] 20 min Stress: Stress Concern Present (10/23/2022) [place] [facility] [employer] - Occupational Stress Questionnaire Feeling of Stress : To some extent Social Connections: Moderately Integrated (10/23/2022) Social Connection and Isolation Panel [NHANES] Frequency of Communication with Friends and Family: More than three times a week Frequency of Social Gatherings with Friends and Family: Twice a week Attends Christianity Services: More than 4 times per year [...] during discussion, demonstrated appropriate cognitive reasoning and understandingof the medical condition by asking appropriate questions [...] in the thoracic spine and paraspinal musculature. Mildpain is elicited with flexion, extension, and lateral rotation of the thoracic spine. Range of motion is not diminished with these motions. Facet palpation is negative for significant pain and facet l oading maneuvers elicit only mild pain that is [...] monitoring for toxicity We do not currently prescribeany controlled substance from this practice. Treatment plans [...] REJI Ramirez 01/13/25 1433 documented in this encounterMagruder HospitalSelerity Formerly Oakwood Heritage [id number] History of Present illness Narrative* Barbara Peters APRN-COOK ENCHILADA - 12/30/2024 11:40 AM EDT Images from the original note were not included. [address] [place] [address] Patient: Yani Joseph Date of : 1960 Encounter Date: 12/30/2024 History of Present Illness: The patient is a 64 y.o. female, an established patient, and is here for Chief Complaint Patient presents with back pain/ was at [facility] . HPI Patient is here for an ER follow-up from the [facility] on December 13 2024 for thoracic backpain. She states her pain started on a [...] and left elbow at times. Patient is ableto sleep. Problem List Items Addressed This Visit None Visit Diagnoses Mid back pain on left side - Primary Relevant Orders [facility] [place], [place] X-ray spine thoracic 3 views Neck pain Relevant Orders X-ray spine cervical 3 views or less Past Medical, Family, and Social History Update: The following portions of the patient's history were reviewed and updated as appropriate: allergies, current medications, past family history, past medical history, past social history, past surgicalhistory and problem list. Past Medical History: Diagnosis Date Asthma Hypertension Kidney stones 02/02/2024 Pulmonary embolism ([facility]) Shortness of breath Sinusitis chronic, frontal 02/2024 Visual impairment Past Surgical History: Procedure Laterality Date APPENDECTOMY CHOLECYSTECTOMY COLONOSCOPY DIAGNOSTIC / SCREENING N/A 10/20/2024 Performed by Mariusz Plata DO at [facility] HIATAL HERNIA REPAIR HYSTERECTOMY 1993 complete [...] 3 mL 3 mL intravenous PRN Mariusz Plata DO sodium chloride 0.9 % flush 3 mL 3 mL intravenous Q12H EARL Mariusz Plata DO (All medications reviewed and updated by [...] seen today for back pain/ was at [facility]. Diagnoses and all orders for this visit: Mid back pain on left side - [facility] [place], [place]; Future - X-ray spine thoracic 3 views; Future Neck pain - X-ray spine cervical 3 views or less; Future Other orders - baclofen (LIORESAL) 10 mg tablet; Take 1 tablet (10 mg total) by mouth nightly as needed for muscle spasms. Follow-up: Patient does have history of osteoporosis in 2022 on DEXA and has been on Fosamax for the last yearand a half. We will check thoracic and cervical x-rays due to high fracture risk. Patient may add lidocaine patches to area of pain and we will switch muscle relaxant to baclofen. She may continue the Tylenol and Motrin [id number] and we will add a pain management referral. Patient declined physical therapy at this time. Patient was advised to use her CPAP mask when she is taking muscle relaxants especially. She states she is not the best at wearing her CPAP every night. Follow-up for routine visit when due. MALI ESPINOZA APRN-CNP 12/30/24 1234 documented in this encounterKettering Health [facility]03-26-2025 History of Present illness Narrative* Toni Bansal MD - 12/08/2024 9:30 AM EDT Sinus & Skull Base Surgery Chief Complaint: [...] inhaler, Inhale 2 puffs twice a day., Disp:, Rfl: cyproheptadine (Periactin) 4 mg tablet, Take 1 tablet (4 mg) by mouth once daily at bedtime., Disp:, Rfl: fluticasone (Flonase Sensimist) 27.5 mcg/actuation nasal [...] nor asymmetry of the nasal tip/dorsum. On anteriorrhinoscopy, visualization posteriorly is limited on anterior examination. For this reason, to adequately evaluate posteriorly for masses, source of epistaxis, polypoid disease, debridement, and/or signs of infections, nasal endoscopy is indicated. (Please see procedure below.) SINONASAL ENDOSCOPY (CPT 01271): To better evaluate the patient's symptoms, sinonasal [...] Signature: Toni Bansal MD documented in this [facility] Work Phone: 1(199) 681-468302-04-2025 Nurse Note* Perioperative Nursing Note - Liza Dunn RN - 10/19/2024 10:12 AM EST Preoperative Education Checklist- General Surgery date: 10/20/24 Surgery time: 10a Arrival time: 9a 1. Bring a photo ID and your insurance card with you the day of surgery. You will check in at the main lobby of the [facility]- registration desk is straight ahead as soon as you walk in. Tell them you are here for surgery. 2. If you have a Living Will/Durable Power of Consumer Insights Specialist for Health Care that is not on [...] after you have bathed. 5. NO nail cuban/acrylic on at least one finger. If you are having a hand, wrist or foot surgery then all nail cuban and artificial/acrylic nails must be removed from [...] least 8 hours and marijuana for 24 hoursprior to arrival for your surgery. 16. If [...] please call the Preadmission Testing office at [phone], Mon.-Fri. 7 a.m.-3 p.m. Leave a voicemail [...] Stop taking 0 days prior to procedure Alegría02-04-2025 Miscellaneous Notes* Perioperative Nursing Note - Liza Dunn RN - 10/19/2024 10:12 AM EST Preoperative Education Checklist- General Surgery date: 10/20/24 Surgery time: 10a Arrival time: 9a 1. Bring a photo ID and your insurance card with you the day of surgery. You will check in at the main lobby of the [facility]- registration desk is straight ahead as soon as you walk in. Tell them you are here for surgery. 2. If you have a Living Will/Durable Power of Consumer Insights Specialist for Health Care that is not on [...] after you have bathed. 5. NO nail cuban/acrylic on at least one finger. If you are having a hand, wrist or foot surgery then all nail cuban and artificial/acrylic nails must be removed from [...] least 8 hours and marijuana for 24 hoursprior to arrival for your surgery. 16. If [...] please call the Preadmission Testing office at [phone], Mon.-Fri. 7 a.m.-3 p.m. Leave a voicemail [...] days prior to procedure documented in this encounterKettering Health [facility]11-27-2024 History of Present illness Narrative* Toni Bansal MD - 08/11/2024 9:45 AM EST Sinus & Skull Base Surgery Chief Complaint: [...] inhaler, Inhale 2 puffs twice a day., Disp:, Rfl: cyproheptadine (Periactin) 4 mg tablet, Take 1 tablet (4 mg) by mouth once daily at bedtime., Disp:, Rfl: fluticasone (Flonase Sensimist) 27.5 mcg/actuation nasal [...] nor asymmetry of the nasal tip/dorsum. On anteriorrhinoscopy, visualization posteriorly is limited on anterior examination. For this reason, to adequately evaluate posteriorly for masses, source of epistaxis, polypoid disease, debridement, and/or signs of infections, nasal endoscopy is indicated. (Please see procedure below.) SINONASAL ENDOSCOPY (CPT 19897-68): To better evaluate the patient's symptoms, sinonasal [...] examination today. We discussed the findings on theright-hand side and I recommended observation and continuation of the mometasone. I suggested usingit twice a day moving forward until her sense of smell stabilizes and at that time she could certainly consider going to once per day. I recommended follow-up with me in about 4 months. All questionswere answered. Scribe Attestation By signing my name below, I, Abdias Valadez, Luz Marina, attest that this documentation has been prepared under the direction and in the presence of Toni Bansal MD. Signature: Toni Bansal MD documented in this encounterKettering Health [facility] Work Phone: 1(453) 243-139911-19-2024 Miscellaneous Notes* Telephone Encounter - Fatuma Herr CMA - 08/03/2024 1:48 PM EST Please let patient know that she continues to have obstructive sleep apnea despite her sinus surgery. I would recommend that she continue with her CPAP therapy. * Telephone Encounter - Fatuma Herr CMA - 08/03/2024 1:48 PM EST Read note to pt. Pt verbalizes understanding. documented in this encounterKettering Health [facility]11-19-2024 Telephone encounter Note* Telephone Encounter - Fatuma Herr CMA - 08/03/2024 1:48 PM EST Please let patient know that she continues to have obstructive sleep apnea despite her sinus surgery. I would recommend that she continue with her CPAP therapy. [facility]11-19-2024 Telephone encounter Note* Telephone Encounter - Fatuma Herr CMA - 08/03/2024 1:48 PM EST Read note to pt. Pt verbalizes understanding. [facility]Advanced [facility]11-18-2024 Miscellaneous Notes* Telephone Encounter - Claudio Trujillo MD - 08/02/2024 3:06 PM EST Home sleep testing interpreted ordered by PCP MALI ESPINOZA for PPG read/follow Positive for LILO, please see full report [place], please offer new patient appointment with sleep provider Home sleep apnea test on 07/28/2024 (THADDEUS (3%)=15.4 events/hour; THADDEUS (4%)=6.7 events/hour; Jerod SpO2=84.0%; Ngcoys=698.0 lbs; BMI=30.7 kg/m2) DIAGNOSIS: Obstructive Sleep Apnea (G47.33) COMMENTS: This home sleep apnea test demonstrates obstructive sleep apnea. Please note that home sleep testing may underestimate sleep apnea severity due to lack of EEG monitoring. TREATMENT CONSIDERATIONS: A trial of nCPAP therapy is recommended. documented in this encounterKettering Health [facility]11-18-2024 Telephone encounter Note* Telephone Encounter - Claudio Trujillo MD - 08/02/2024 3:06 PM EST Home sleep testing interpreted ordered by PCP MALI ESPINOZA for PPG read/follow Positive for LILO, please see full report [place], please offer new patient appointment with sleep provider Home sleep apnea test on 07/28/2024 (THADDEUS (3%)=15.4 events/hour; THADDEUS (4%)=6.7 events/hour; Jerod SpO2=84.0%; Eupabc=639.0 lbs; BMI=30.7 kg/m2) DIAGNOSIS: Obstructive Sleep Apnea (G47.33) COMMENTS: This home sleep apnea test demonstrates obstructive sleep apnea. Please note that home sleep testing may underestimate sleep apnea severity due to lack of EEG monitoring. TREATMENT CONSIDERATIONS: A trial of nCPAP therapy is recommended. [facility] Work Phone: 1(811) 459-196510-23-2024 Miscellaneous Notes* Telephone Encounter - Marilee Dickinson - 07/07/2024 3:27 PM EDT 06/24 Order received 07/07 Called PT LM to schedule sleep study. Patient is busy at this time and will call back to schedule HST Order and 06/24/23 Valente Peters Epic Notes Order Deferred documented in this encounterMagruder HospitalOsteogenix10-23-2024 Telephone encounter Note* Telephone Encounter - Marilee Dickinson - 07/07/2024 3:27 PM EDT 06/24 Order received 07/07 Called PT LM to schedule sleep study. Patient is busy at this time and will call back to schedule HST Order and 06/24/23 Valente Peters Epic Notes Order Deferred [facility]Advanced [facility]10-16-2024 History of Present illness Narrative* Toni Bansal MD - 06/30/2024 10:00 AM EDT Sinus & Skull Base Surgery Chief Complaint: [...] inhaler, Inhale 2 puffs twice a day., Disp:, Rfl: cyproheptadine (Periactin) 4 mg tablet, Take 1 tablet (4 mg) by mouth once daily at bedtime., Disp:, Rfl: methIMAzole (Tapazole) 10 mg tablet, 1 [...] nor asymmetry of the nasal tip/dorsum. On anteriorrhinoscopy, visualization posteriorly is limited on anterior examination. For this reason, to adequately evaluate posteriorly for masses, source of epistaxis, polypoid disease, debridement, and/or signs of infections, nasal endoscopy is indicated. (Please see procedure below.) SINONASAL ENDOSCOPY WITH DEBRIDEMENT (CPT 72119-57-79): Due to the patient's chronic sinusitis/chronic rhinitis, [...] through the propel stent with the frontal sinusseeker. She was sensitive to manipulation through the [...] I also recommended mometasone 2 mg within rinseson a twice daily basis. I suggested using this consistently for the next few months and then we candetermine a long-term plan based on her symptoms at her exam. I asked her to follow-up with me in 4 to 6 weeks. All questions were answered. Scribe Attestation By signing my name below, I, Escobar Espinalibblair, attest that this documentation has been prepared under the direction and in the presence of Toni Bansal MD. Signature: Toni Bansal MD documented in this encounterKettering [facility] Work Phone: 1(524) 659-191510-15-2024 Miscellaneous Notes* Telephone Encounter - Muriel Sands - 06/29/2024 9:08 AM EDT ----- Message from MALI Aguilar sent at 06/29/2024 8:53 AM EDT ----- Will you please make sure her home sleep study order went to [facility] sleep center. * Telephone Encounter - Muriel Sands - 06/29/2024 9:08 AM EDT Was not informed she has sleep study or where it needed sent, will get sent over * Telephone Encounter - Murielbatsheva Sands - 06/29/2024 9:08 AM EDT done documented in this [facility] Telephone encounter Note* Telephone Encounter - Murielbatsheva Sands - 06/29/2024 9:08 AM EDT ----- Message from MALI Aguilar sent at 06/29/2024 8:53 AM EDT ----- Will you please make sure her home sleep study order went to [facility] sleep center. [facility] Telephone encounter Note* Telephone Encounter - Murielbatsheva Sands - 06/29/2024 9:08 AM EDT Was not informed she has sleep study or where it needed sent, will get sent over [facility]10-15-[facility] Telephone encounter Note* Telephone Encounter - Murielbatsheva Sands - 06/29/2024 9:08 AM EDT done [facility]10-10-[facility] History of Present illness Narrative* MALI Espinoza - 06/24/2024 1:40 PM EDT [address] [place] [address] Patient: Yani Joseph Date of : 1960 [...] past medical history, past social history, past surgicalhistory and problem list. Past Medical History: Diagnosis Date Asthma Kidney stones 02/02/2024 Pulmonary embolism ([facility]) Shortness of breath Sinusitis chronic, frontal 02/2024 [...] like to do home sleep study through [facility]. The OARRS/MAPPS database was reviewed today and found to be appropriate. No indication of medication diversion, or non compliance. BARBARA PETERS APRN-COOK ENCHILADA MALI Espinoza 06/29/24 0853 documented in this encounterK[facility]10-09-2024 History of Present illness Narrative* Toni Bansal MD - 06/23/2024 10:30 AM EDT Sinus & Skull Base Surgery Chief Complaint: [...] her first postoperative evaluation since undergoing bilateral endoscopicsinus surgery along with nasal airway surgery June [...] inhaler, Inhale 2 puffs twice a day., Disp:, Rfl: cephalexin (Keflex) 500 mg capsule, Take 1 capsule (500 mg) by mouth 2 times a day for 7 days., Disp: 14 capsule, Rfl: 0 cyproheptadine (Periactin) 4 mg tablet, Take 1 tablet (4 mg) by mouth once daily at bedtime., Disp:, Rfl: fluticasone (Flonase Sensimist) 27.5 mcg/actuation nasal [...] Disp: 30 mL, Rfl: 0 sodium chloride (Flagler) 0.65 % nasal spray, Administer 2 sprays into each nostril 6 times a day for10 days., Disp: 44 mL, Rfl: 0 traMADol [...] nor asymmetry of the nasal tip/dorsum. On anteriorrhinoscopy, visualization posteriorly is limited on anterior examination. For this reason, to adequately evaluate posteriorly for masses, source of epistaxis, polypoid disease, debridement, and/or signs of infections, nasal endoscopy is indicated. (Please see procedure below.) SINONASAL ENDOSCOPY WITH DEBRIDEMENT (CPT 27653-29-13): Due to the patient's chronic sinusitis/chronic rhinitis, [...] intranasal topical steroid therapy and we can discussoptions during her next clinic evaluation. All questions were answered. Scribe Attestation By signing my name below, I, Luz Marina Espinal, attest that this documentation has been prepared under the direction and in the presence of Toni Bansal MD. Signature: Toni Bansal MD documented in this [facility] Work Phone: [phone]) 430-753610-03-2024 Hospital Discharge instructions* Discharge Instructions* Bc Landry MD - 06/17/2024 6:54 AM [...] naproxen (Aleve , Naprosyn ), and other nonsteroidalanti-inflammatory medications (NSAIDs) following nasal surgery. You may [...] try to sneeze with your mouth open. Sleepingwith your head elevated for at least the [...] your head down and blow out through yourmouth when you irrigate to prevent water from [...] following saline irrigations or sprays but if itis reproducible despite stopping saline please contact our office Salty or metallic taste (note that you may experience a salty taste that is normal up to 30 minutesfollowing saline use) Do not hesitate to call if you have any questions or concerns: Offices of Otolaryngology - Division of Rhinology Dr. Malik [phone] - Dr. Bansal [phone] Normal office hours are: 8am-4pm Friday - Friday If there is an after-hours EMERGENCY related to your procedure please call [phone] (ask for the ENT resident on-call ). [facility] Work Phone: 1(255) 391-181109-16-2024 Note* CPM/PAT H&P - Mikki Morales PA-C - 05/31/2024 9:26 AM EDT CPM/PAT Evaluation Name: Yani BLANTON/Age: 8 1960 TELEMEDICINE ENCOUNTER Patient was interviewed [...] and oral steroid therapy that temporarily improve hersymptoms, then they return. She has been using [...] inhaler, Inhale 2 puffs twice a day., Disp:, Rfl: cyproheptadine (Periactin) 4 mg tablet, Take 1 tablet (4 mg) by mouth once daily at bedtime., Disp:, Rfl: losartan (Cozaar) 50 mg tablet, Take [...] personal review of patient's medical records. Speech recognitiontranscription software was used in the creation of this note. Despite proofreading, several typographical errors might be present that might affect the meaning of the content. [facility] Work Phone: [phone]) 168-143209-16-2024 Miscellaneous Notes* CPM/PAT H&P - Mikki Morales PA-C - 05/31/2024 9:26 AM EDT CPM/PAT Evaluation Name: Yani BLANTON/Age: 8 1960 TELEMEDICINE ENCOUNTER Patient was interviewed [...] and oral steroid therapy that temporarily improve hersymptoms, then they return. She has been using [...] inhaler, Inhale 2 puffs twice a day., Disp:, Rfl: cyproheptadine (Periactin) 4 mg tablet, Take 1 tablet (4 mg) by mouth once daily at bedtime., Disp:, Rfl: losartan (Cozaar) 50 mg tablet, Take [...] personal review of patient's medical records. Speech recognitiontranscription software was used in the creation of this note. Despite proofreading, several typographical errors might be present that might affect the meaning of the content. * Preprocedure Instructions - Mikki Morales PA-C - 05/31/2024 9:23 AM EDT Pre-Op Instructions &?Checklist Your surgery has been scheduled at [facility] at [address] [place], [address], [address], in the [facility]. Parking is to the left of [...] call by 3:00 pm you may call [phone] between the hours of 3:00 and 4:00 pm. Please be available by phone the night before/day of surgery in case there cyril change in the schedule which may require [...] or coffee (no milk or creamer), clear electrolyte- replenishing drinks such as Pedialyte, Gatorade, or Powerade [...] removed before surgery. Bring containers for eyeglasses/contacts, dentures,or hearing aids with you. ? Diabetics: Please [...] *If you need help with quitting, call [phone]-NOW. Alcohol: *No alcoholic beverages for 48 hours before surgery. ? AFTER OUTPATIENT SURGERY: *A responsible adult MUST accompany you at the time of discharge and stay with you for 24 hours after your surgery. *You may NOT drive yourself home after surgery. * You may use a taxi or ride sharing service ([employer], [employer]) to return home ONLY if you are [...] regarding these preoperative instructions you may call [phone]. If you have questions regarding you surgical procedure, or post- operative care/recovery please call yoursurgeon's office. Link to [facility] Laboratory Services Locations [email or web address] Link to [facility] [employer] [email or web address] [email or web address]\ documented in this [facility] Work Phone: 1(219) 767-145909-16-2024 Note* Preprocedure Instructions - Mikki Morales PA-C - 05/31/2024 9:23 AM EDT Pre-Op Instructions &?Checklist Your surgery has been scheduled at [facility] at [address] in [place], [place], [facility] access hospital, [address], in the [facility]. Parking is to the left of [...] call by 3:00 pm you may call [phone] between the hours of 3:00 and 4:00 pm. Please be available by phone the night before/day of surgery in case there cyril change in the schedule which may require [...] or coffee (no milk or creamer), clear electrolyte- replenishing drinks such as Pedialyte, Gatorade, or Powerade [...] removed before surgery. Bring containers for eyeglasses/contacts, dentures,or hearing aids with you. ? Diabetics: Please [...] *If you need help with quitting, call [phone]-NOW. Alcohol: *No alcoholic beverages for 48 hours before surgery. ? AFTER OUTPATIENT SURGERY: *A responsible adult MUST accompany you at the time of discharge and stay with you for 24 hours after your surgery. *You may NOT drive yourself home after surgery. * You may use a taxi or ride sharing service ([employer], [employer]) to return home ONLY if you are [...] regarding these preoperative instructions you may call [phone]. If you have questions regarding you surgical procedure, or post- operative care/recovery please call yoursurgeon's office. Link to [facility] Laboratory Services Locations [email or web address] Link to [facility] [employer] [email or web address] ption=faq\ [facility] Work Phone: 1(459) 168-720708-22-2024 History of Present illness Narrative* Barbara Peters, MALI - 05/06/2024 1:00 PM EDT [address] [place] [address] Patient: Yani Joseph Date of : 1960 [...] with ENT in June. Patient saw her powerhouse electrician apprentice in February and her thyroid function tests were normal and she was advised to lose weight and provider was aware she was planning on using Adipex for medically monitored weight loss. She had a colonoscopy with a GI provider through [facility] almost 5 years ago that showed polyps and she would like to follow-up on this with Dr. Plata for a screening colonoscopy in August. Patient [...] past medical history, past social history, past surgicalhistory and problem list. Past Medical History: Diagnosis [...] to set up her colonoscopy with Dr. Plata in August. She has seen Dermatology this year for full body skin check. Patient will follow-up in 1 month for possible continuation of the phentermine for medically monitored weight loss. MALI ESPINOZA APRN-CNP 05/06/24 1620 documented in this encounterK[facility]07-18-2024 History of Present illness Narrative* MALI Espinoza - 04/01/2024 11:40 AM EDT [address] [facility] [address] Patient: Yani Joseph Date of : 1960 [...] 2021 was reviewed with patient today showing jgaz-to-xxzzocwc sleep apnea withmild hypoxia. Problem List Items Addressed This Visit [...] past medical history, past social history, past surgicalhistory and problem list. Past Medical History: Diagnosis Date Asthma Kidney stones 02/02/2024 Pulmonary embolism ([facility]) Shortness of breath Sinusitis chronic, frontal 02/2024 [...] the Adipex. Blood pressure well controlled. Her powerhouse electrician apprentice is aware that she is taking the Adipex with history of Graves disease and feels benefit outweighs risk as patient would benefit from weight loss to prevent comorbid conditions such as uncontrolled hypertension and type 2 diabetes. Patient's blood pressure is well controlled without adverse side effects onthe Adipex. The OARRS/MAPPS database was reviewed today and found to be appropriate. No indication of medication diversion, or non compliance. Recommend repeat sleep study after her sinus surgery in the fall per ENTs recommendation. Follow-up in 1 month for Adipex. MALI ESPINOZA APRN-CNP 04/01/24 1218 documented in this encounterK[facility]06-27-2024 Hospital Discharge instructions Patient Education 03/11/2024 12:48:35 [...] spreads (radiates)to the groin. Needing to urinate often or [...] Follow these instructions at home: Medicines Take nzzw-kkr-ulwnlfd and prescription medicines only as told by [...] provider. Document Revised: 12/11/2022 Document Reviewed: 12/11/2022 [employer]ads Patient Education 2022 [employer] Follow Up Care 03/05/2024 12:09:13 With:LORA BRAUN PA-C, URL Address: [address] [place] [address] When: Unknown [facility] 06-21-2024 History of Present illness Narrative* Barbara Jackson Rauch, INSERT OPERATOR-COOK ENCHILADA - 03/05/2024 8:40 AM EDT [address] [place] [address] Patient: Yani Joseph Date of : 1960 [...] is to have surgery with ENT through [facility] in June for removal of the polyps and clean out of her sinuses. Her septum is also deviated. She recently saw her powerhouse electrician apprentice in [place] who commented on her weight gain from the steroidsand recommended that she lose weight but stated [...] past medical history, past social history, past surgicalhistory and problem list. Past Medical History: Diagnosis Date Asthma Kidney stones 02/02/2024 Pulmonary embolism ([facility]) Shortness of breath Sinusitis chronic, frontal 02/2024 [...] to help her lose more weight. Her powerhouse electrician apprentice stated at last appointment she is okay to take this with her hyperthyroidism as long as she is closely monitored by her PCP. Return to office in 1 month for recheck of her weight. She should try to increase her activity and use her rescue inhaler before exercise. MALI ESPINOZA APRN-CNP 03/05/24 3041 documented in this encounterK[facility]05-15-2024 History of Present illness Narrative* Barbara Peters, INSERT OPERATOR-COOK ENCHILADA - 01/28/2024 4:00 PM EDT [address] [facility] [address] Patient: Yani Joseph Date of : 1960 Encounter Date: 01/28/2024 History of Present Illness: The patient is a 63 y.o. female, an established patient, and is here for No chief complaint on file. . HPI Patient is here to follow-up on her chronic problems. After last appointment she was referred to countersinker balance screw hole Dr. Lino in [place] urine was offered Dupixent but due to the cost and insurance hopes patient instead decided to start several weeks of steroids. The countersinker balance screw hole also told her she had polyps in her nose. She then had to see ENT doctor Colt in [place] to obtain CT of her sinuses in order to qualify for the Dupixent. The ENT extended her steroid taper and placed her on 1 month of Augmentin for her sinus and asthma issues. She has gained 12 lb since starting the steroids due to the increased appetite. She is unsure if she will start the Dupixent with the countersinker balance screw hole. She has not needed her rescue inhaler [...] past medical history, past social history, past surgicalhistory and problem list. Past Medical History: Diagnosis Date Asthma Pulmonary embolism ([facility]) Shortness of breath Past Surgical History: Procedure Laterality Date APPENDECTOMY CHOLECYSTECTOMY HIATAL HERNIA REPAIR HYSTERECTOMY 1993 complete KNEE ARTHROSCOPY W/ DEBRIDEMENT Left 2013 OOPHORECTOMY Bilateral 1993 Current Outpatient Medications Medication Sig Dispense Refill amoxicillin-pot clavulanate (AUGMENTIN) 875-125 mg per tablet Take 1 tablet by mouth in the morningand 1 tablet before bedtime. XHANCE 93 mcg/actuation [...] 91 Temp 36.7 C (98 F) (Oral) Resp20 Ht 165.4 cm (5' 5.12 ) Wt [...] provider know. Patient has follow-up with her powerhouse electrician apprentice in the next 1 month. She should have her thyroid function tests rechecked due to the weight gain. Her blood pressure is elevated above goal today likely due to the prolonged steroids. She was askedto check blood pressure at home 2 to 3 times a week and return in 1 month for recheck. Her asthma is currently well controlled due to the steroids. If she starts using her rescue inhalermore than 3 times a week in the next several weeks would recommend increasing to triple therapy inhaler. Return to office in 1 month for blood pressure recheck. MALI ESPINOZA APRN-CNP 01/29/24 1015 documented in this encounterK[facility]03-12-2024 Hospital Discharge instructions Patient Education 11/25/2023 14:47:21 Kidney Stones, Efva-sc-Teaq Kidney Stones Kidney stones are rock-like masses [...] Follow these instructions at home: Medicines Take vxsq-kjf-htxhusr and prescription medicines only as told by [...] provider. Document Revised: 05/06/2022 Document Reviewed: 05/06/2022 [employer] Patient Education 2022 [employer]. Follow Up Care 11/19/2022 11:44:13 With:LORA BRAUN PA-C, URL Address: [address] [place] [address] When:Within 1 Year(s) Comments:REGIS/NABIL [facility] 02-23-2024 History of Present illness Narrative* MALI Espinoza - 11/07/2023 9:03 AM EST Called patient to let her know there was an abnormality on the left breast and additional imaging is required. She understands and will call central scheduling to set this up today. Order sent for screening mammogram and diagnostic mammogram on left. MALI Espinoza 11/07/23 0906 documented in this encounterProMedica Health [id number] Evaluation note* Encounter Date Diagnosis Assessment Notes Treatment Notes Treatment Clinical Notes Jun, Acute intractable he adache, unspecified headache type (ICD-10 - R51.9) Drink [...] that you stay home from work tomorrow. Jun,History of sinusitis (ICD-10 - Z87.09) [facility] ? Other 09-18-2023 Evaluation note* Encounter Date Diagnosis Assessment Notes Treatment Notes Treatment Clinical Notes May, Contact with and (malin spected) exposure to covid-19 (ICD-10 - Z20.822) May,llergic rhinitis, unspecified seasonality, unspecified trigger (ICD-10 - J30.9)Allergic rhinitis home care material was printed Drink plenty fluids, get plenty of rest. Continue home medications as prescribed. Take the prednisone as prescribed until gone. Follow-up with your family physician if no improvement in 2 to 3 days [facility] ? Other 04-10-2023 Evaluation note* Encounter Date Diagnosis Assessment Notes Treatment Notes Treatment Clinical Notes Dec, Obstructive sleep apnea (ICD-10 - G47.33) Discussed different options to improve tolerance to CPAP, different masks, issues with each option,encouraged weight loss, continuing use of CPAP, and trial of different mask such as nasal pillows, asked her to report any issues or questions to us otherwise we will see her for follow-up in 1 year [facility] ? Other 03-13-2023 Evaluation + Plan noteExtracted from:Title: ED NoteAuthor:Kristi RIOS, JansenDate:11/25/22 Asthma (J45.909: Unspecified asthma, uncomplicated) Pneumonia (J18.9: Pneumonia, unspecified organism) Orders: azithromycin, = 1 packet(s), Oral, As Directed, as directed on package labeling, X 5 day(s), # 6 tab(s), Refills(s) 0, Pharmacy: [facility], 165, cm, 11/25/22 9:56:00 EDT, Height/Length Dosing, 84.2, kg, 11/25/22 9:56:00 EDT, Weight Dosing benzonatate, 200 mg = 1 cap(s), Oral, TID, X 7 day(s), # 21 cap(s), Refills(s) 0, Pharmacy: [facility], 165, cm, 11/25/22 9:56:00 EDT, Height/Length Dosing, 84.2, kg, 11/25/22 9:56:00EDT, Weight Dosing cefdinir, 300 mg = 1 cap(s), Oral, q12hr, X 10 day(s), # 20 cap(s), Refills(s) 0, Pharmacy: [facility], 165, cm, 11/25/22 9:56:00 EDT, Height/Length Dosing, 84.2, kg, 11/25/22 9:56:00EDT, Weight Dosing ibuprofen, 800 mg = 1 tab(s), Tab, Oral, Once, Stop date 11/25/22 10:40:00 EDT, STAT, Start date 11/25/22 10:40:00 EDT, 11/25/22 10:40:00 EDT predniSONE, 60 mg = 3 tab(s), Oral, Daily, X 7 day(s), # 21 tab(s), Refills(s) 0, Pharmacy: [facility], 165, cm, 11/25/22 9:56:00 EDT, Height/Length Dosing, 84.2, kg, 11/25/22 9:56:00EDT, Weight Dosing XR Chest 2 Views Future Appointments Appointment Date:11/25/2023 02:00:00 PM Scheduled Provider:LORA BRAUN PA-C Location:[facility] Appointment Type:URO Office Visit [facility]03-13-2023 Hospital Discharge instructions Patient Education 11/25/2022 [...] Follow these instructions at home: Medicines Take alqw-qfc-wnvmxec and prescription medicines only as told by [...] and water are not available, use hand multimedia educational specialist. Contact a health care provider if: You [...] 09/01/2006 Document Revised: 04/29/2019 Document Reviewed: 04/29/2019 [employer] Patient Education 2020 [employer] Follow Up Care 11/25/2022 09:44:57 With:GERA BURCIAGA Address: [address] [place] [id number] Business (1) When:11/28/2022 10:41:38 [facility]03-08-2023 Evaluation note* Encounter Date Diagnosis Assessment Notes Treatment Notes Treatment Clinical Notes Nov, Nasal congestion (ICD-10 - R09.8 1) Nov,Viral upper respiratory infection (ICD-10 - J06.9)Viral upper respiratory infection: adult home care material was printed Drink plenty fluids, get plenty of rest. Take Tylenol or Motrin as needed for aches pains or fevers. Continue home medications as prescribed including albuterol inhaler and Flonase inhaler. Off work today and tomorrow. Follow-up with your family physician if no improvement in 2 to 3 days Nov,Sore throat (ICD-10 - J02.9) [facility] ? Other 03-07-2023 Hospital Discharge instructions Patient Education [...] you may eat and drink normally. Take gcte-khe-beruios and prescription medicines only as told by your health care provider. Let your health care provider know about any medicines that you are taking, including piez-tuc-ofvdbqy medicines, vitamins, herbs, and supplements. Choose a [...] 11/28/2009 Document Revised: 12/20/2019 Document Reviewed: 09/14/2018 [employer] Patient Education 2020 [employer]. Follow Up Care 07/29/2022 09:24:04 With:KADE RIOS, LORA Pinto, URL Address: When:1 year [facility] 10-10-2022 Evaluation note* Encounter Date Diagnosis Assessment Notes Treatment Notes Treatment Clinical Notes Jun, Sleep apnea, unspecified type (I CD-10 - G47.30) Discussed causes of sleep disruption, as opposed to chronic insomnia, evaluation to include polysomnography, with monitoring of sleep quality and quantity, as well as limb movements during sleep is essential and ruling out other causes of disruption. Depending on results we can recommend treatment Jun,2Restless sleeper (ICD-10 - G47.9) [facility] ? Other 08-05-2022 Evaluation + Plan note Future Scheduled Tests Radiology* XR IVP 04/19/22 [facility] 08-05-2022 Hospital Discharge instructions Patient Education 04/19/2022 09:06:45 Kidney Stones, Lupj-ui-Pjyq Kidney Stones Kidney stones are rock-like masses [...] Follow these instructions at home: Medicines Take shsb-zev-tfqvfbd and prescription medicines only as told by [...] 02/17/2009 Document Revised: 01/18/2020 Document Reviewed: 01/18/2020 Else[employer]ads Patient Education 2019 [employer] Follow Up Care 04/02/2022 11:51:41 With:KASSIDY THORNE, Justin Peterson, URL Address: [address] [place] [address] [place] [id number]- When: Unknown [facility] 07-17-2022 Evaluation + Plan noteExtracted from:Title: ED NoteAuthor:Abilio Brambila, Iraida HDate:03/31/22 1. Left ureteral stone (N20. 1: Calculus of ureter) Ordered: acetaminophen-oxycodone, 1 tab(s), Oral, q6hr as needed for pain, 10 tab(s), Refill(s) 0, [facility], 165, cm, 03/30/22 21:43:00 EDT, Height/Length Dosing, 79.5, kg, 03/30/22 21:43:00EDT, Weight Dosing 2. Urinary tract infection (N39.0: Urinary tract infection, site not specified) Orders: cephalexin, 500 mg = 1 cap(s), Oral, QID, X 7 day(s), # 28 cap(s), Refills(s) 0, Pharmacy: [facility], 165, cm, 03/30/22 21:43:00 EDT, Height/Length [...] mL, Soln-IV, IV, Once, Stop date 03/30/22 22:16:00EDT, STAT, Start date 03/30/22 22:16:00 EDT, Infuse over 61, minute(s) Automated Diff Basic Metabolic Panel CBC w/ Auto Diff CT Abdomen/Pelvis w/o Contrast eGFR Hepatic Function Panel Lipase Level UA With Cult Reflex Urine Culture Future Appointments Appointment Date:08/06/2022 02:15:00 PM Scheduled Provider:Misael VINES MD Location[facility] hospital Appointment Type:URO Office Visit Diagnostic Tests Pending * Urine Culture 03/30/22 [facility]22 Hospital Discharge instructions Patient Education 03/31/2022 [...] Treatment for this condition includes: Antibiotic medicine. Uied-uqg-wflwgog medicines to treat discomfort. Drinking enough water [...] Follow these instructions at home: Medicines Take hpeu-udm-cdglaeo and prescription medicines only as told by [...] 06/11/2006 Document Revised: 08/19/2019 Document Reviewed: 03/11/2019 [employer] Patient Education 2020 [employer]. 03/31/2022 02:46:45 Kidney Stones Kidney Stones Kidney [...] Follow these instructions at home: Medicines Take qyfr-uxj-lsfjysf and prescription medicines only as told by [...] 09/01/2006 Document Revised: 01/18/2020 Document Reviewed: 01/18/2020 [employer] Patient Education 2020 [employer]. Follow Up Care 03/30/2022 21:24:27 With:Justin YI Address: [facility] [address] [place] [address] Business (1) When:04/03/2022 Comments:Return to the emergency room if your pain gets worse or any new symptoms With:GERA BURCIAGA Address: [facility] [place] [address] Business (1) When:Within 3 Day(s) [facility]06-16-2022 NotePROCEDURE: XR ANKLE RT MIN 3 VIEWS, XR FOOT RT MIN 3 VIEWS HISTORY: Pain COMPARISON: XR ankle right 02/27/2022 FINDINGS: BONES:No fracture, acute abnormality, or significant arthropathy. SOFT TISSUES:No visible soft tissue swelling. EFFUSION:None visible. OTHER: Negative. IMPRESSION: 1. No acute bone abnormality or significant degenerative changes of the right ankle and foot. Electronically authenticated by: ARVIN MONTEIRO Date: 2022-02-28 18:02[facility]06-16-2022 NotePROCEDURE: XR ANKLE RT MIN 3 VIEWS, XR FOOT RT MIN 3 VIEWS HISTORY: Pain COMPARISON: XR ankle right 02/27/2022 FINDINGS: BONES:No fracture, acute abnormality, or significant arthropathy. SOFT TISSUES:No visible soft tissue swelling. EFFUSION:None visible. OTHER: Negative. IMPRESSION: 1. No acute bone abnormality or significant degenerative changes of the right ankle and foot. Electronically authenticated by: ARVIN MONTEIRO Date: 2022-02-28 18:02[facility]06-15-2022 NotePROCEDURE: XR ANKLE RT MIN 3 [...] Electronically authenticated by: ARVIN MONTEIRO Date: 2022-02-27 15:16[facility]05-23-2022 Hospital Discharge instructions Patient Education 02/04/2022 [...] Up Care 01/25/2022 13:36:51 With:Misael VINES Address: [address] [place], [place] [id number] [facility] (1) When:6 months Comments:Call for followup appointment with an abdominal X-ray prior to your visit. Have a great day! [facility]05-12-2022 Hospital Discharge instructions Patient Education 01/24/2022 [...] Follow these instructions at home: Medicines Take ynat-eyd-kmlfnux and prescription medicines only as told by [...] 09/01/2006 Document Revised: 01/18/2020 Document Reviewed: 01/18/2020 [employer] Patient Education 2019 [employer]. Follow Up Care 01/24/2022 06:02:33 With:Misael VINES Address: [address] [address] Business (1) When: Unknown Comments:Call for followup appointment with an abdominal x-RAY prior to your visit. With:GERA BURCIAGA Address: [address] [address] Business (1) When: Unknown [facility]05-12-2022 Evaluation + Plan noteExtracted from: Title:Urology Consult and H&P 2Author:Misael VINES MD PDate:01/24/22 Impression and Plan Diagnosis Renal calculi (QIZ43-TO N20.0, Discharge, Medical). Hydronephrosis with ureteral calculus (QUB51-DL N13.2, Working, Medical). Complaint of Flank pain (PNED [id number], Reason For Visit, Nursing). Course: Worsening, overall this patient has a right distal ureteral calculus which has failed to pass. This has been over a week of trial. She most likely has had this stone for about 3 weeks as thisis when she had the initial onset of [...] administered IV. She wishes to proceed.. Extracted from:Title:Admission H & PAuthor:MUKUL AGAP-, ReneeDate:01/24/22 1. Renal calculi (N20.0: Elliott culus of [...] made to ensure accuracy, however, inadvertently computerized skating rink ice maker mistakes may be present. Extracted from:Title:ED AddendumAuthor:Iraida Knox M.D. HDate:01/24/22 1. Intractable pain (R52: Pa in, unspecified) Renal colic on right side (N23: Unspecified renal colic) Orders: Sodium Chloride 0.9% intravenous solution 1,000 mL, 1,000 mL, IV, 250 mL/hr, STAT, Start date 01/24/22 8:58:00 EDT, 4 hour(s), Total volume (mL): 1,000, 87.5 kg, 2, m2 ED Physician consult Hospitalist for continued care NPO Diet Extracted from:Title:ED NoteAuthor:Chad Smart DO ADate:01/24/22 Renal colic on right side (N 23: Unspecified renal colic) Orders: ketorolac, 30 mg = 1 mL, Injection, IV Push, Once, Stop date 01/24/22 6:24:00 EDT, STAT, Start date01/24/22 6:24:00 EDT, 01/24/22 6:24:00 EDT ondansetron, 4 [...] 09:45:00 AM Scheduled Provider:Jose THORNE, Nohemi Boothe Location:[facility] Appointment Type:URO New Patient Diagnostic Tests Pending * Calculi Analysis Urinary 01/24/22 [facility]05-02-2022 Evaluation note* Encounter Date Diagnosis Assessment Notes Treatment Notes Treatment Clinical Notes January, Dysuria (ICD-10 - R30.0) January,Urinary tract infection, site not specified (ICD-10 - N39.0)Drink plenty fluids, get plenty of rest. Take the Macrobid as prescribed until gone. Take the Pyridium as prescribed until gone. Take Tylenol or Motrin for aches pains or fevers. Follow-up with your family physician if no improvement in 2 to 3 days. January,Hematuria, unspecified (ICD-10 - R31.9) WAKU WAKU ? Other 10-28-2021 Evaluation note* Encounter Date Diagnosis Assessment Notes Treatment Notes Treatment Clinical Notes Jun, Contact with and (malin spected) exposure to other viral communicable diseases (ICD-10 [...] is performed too soon. It is recommended thateven if results are negative and you have been exposed to someone that has COVID that you follow current CDC recommendations. These can be found at CDC.GOV. Follow up with primary care provider if symptoms persist or do not improve Jun,Mild intermittent asthma with exacerbation (ICD-10 - J45.21) Take medications as directed with food. Complete all doses of steroids. Use inhaler or nebulizer atleast 2-3 times per day for next 48 hours. Increase fluid intake. Follow up with primary care provider is recommended to discuss treatment plan changes to asthma. Seek emergency help if difficulty breathing develops Jun,Other Additional time spent conducting pre-visit phone call, screening for symptoms, instructions on social distancing, application and removal of PPE, and cleaning of examination room, equipment and supplies was preformed. Patient education given for testing methodology and results. Patient care instructions given in writting by [facility] Care At Home document. WAKU WAKU ? Other Evaluation + Plan note No data available for this section [facility] Future Appointments Appointment Date:02/04/2022 02:30:00 PM Scheduled Provider: Location:[facility] Appointment Type:Urology FT [facility] evaluation + Plan note Future Appointments Appointment Date:08/06/2022 02:15:00 PM Scheduled Provider:Misael VINES MD Location:Critical access hospital Appointment [facility] Appointments Appointment Date:11/25/2023 02:00:00 PM Scheduled Provider:LORA BRAUN PA-C Location:[facility] Appointment Type:URO Office Visit [facility] evaluation + Plan note Future Appointments Appointment Date:03/08/2025 08:20:00 AM Scheduled Provider:LORA BRAUN PA-C Location:[facility] Appointment Type:URO Office Visit Future Scheduled Tests Radiology* XR Abdomen 1 View 01/24/25 * US Renal 01/24/25 [facility] evaluation + Plan note Future Appointments Appointment Date:03/08/2025 08:20:00 AM Scheduled Provider:LORA BRAUN PA-C Location:[facility] Appointment Type:URO Office Visit Diagnostic Tests Pending * T3 Free 02/10/24 Future Scheduled Tests Radiology* XR Abdomen 1 View 01/24/25 * US Renal 01/24/25 [facility] Appointments Appointment Date:03/11/2024 12:40:00 PM Scheduled Provider:LORA BRAUN PA-C Location:[facility] hospital Appointment Type:URO Office Visit Appointment Date:03/08/2025 08:20:00 AM Scheduled Provider:LORA BRAUN PA-C Location:[facility] Appointment Type:URO Office Visit Future Scheduled Tests Radiology* XR Abdomen 1 View 01/24/25 * US Renal 01/24/25 [facility] evaluation + Plan note Future Appointments Appointment Date:03/07/2026 08:20:00 AM Scheduled Provider:LORA BRAUN PA-C Location:[facility] Appointment Type:URO Office Visit Future Scheduled Tests Radiology* XR Abdomen 1 View 01/24/25 * US Renal 01/24/25 [facility] evaluation noteNo assessment information available [facility] Work Phone: Evaluation note* Diagnosis Onset Date Resolution Status BMI 33.0-33.9,adult acuteDepressionacuteHTN (hypertension)acuteMigraine headacheacuteObstructive sleep apneaacuteRestless sleeperacute [facility] Work Phone: Evaluation note* Diagnosis Chronic [...] crisis or storm documented in this encounter [facility] Work Phone: Evaluation note* Diagnosis Chronic ethmoidal sinusitis- Primary Nasal polyp Unspecified nasal polyp Nasal congestion with rhinorrhea Other diseases of nasal cavity and sinuses documented in this encounter [facility] Work Phone: Evaluation note* Diagnosis Chronic ethmoidal sinusitis- Primary Nasal polyp Unspecified nasal polyp Nasal congestion with rhinorrhea Other diseases of nasal cavity and sinuses documented in this encounter [facility] Work Phone: Evaluation note* Diagnosis Chronic ethmoidal sinusitis- Primary Decreased sense of smell Disturbances of sensation of smell and taste documented in this encounter [facility] Work Phone: Evaluation note* Diagnosis Personal history of adenomatous and serrated colon polyps- Primary Allergic rhinitis, unspecified Personal history of adenomatous and serrated colon polyps documented [facility]* Diagnosis Encounter for screening mammogram for malignant neoplasm of breast- Primary documented in this encounter [employer] [facility] note* Diagnosis Class 1 obesity due to excess calories without serious comorbidity with body mass index (BMI) of 33.0 to 33.9 in adult- Primary Graves' disease 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 crisis or storm Essential hypertension Unspecified essential hypertension Moderate persistent asthma without complication Gastroesophageal reflux disease, unspecified whether esophagitis present documented in this encounter [facility]* Diagnosis Essential (primary) hypertension Unspecified essential hypertension documented in this encounter [facility]* Diagnosis Essential hypertension- Primary Unspecified essential hypertension Nasal polyp Unspecified nasal polyp Class 1 obesity due to excess calories with serious comorbidity and body mass index (BMI) of 33.0 to 33.9 in adult Moderate persistent asthma without complication documented in this encounter [employer] [facility]* Diagnosis Abnormal mammogram of left breast- Primary [facility]* Diagnosis Class 1 obesity due to excess calories with serious comorbidity and body mass index (BMI) of 31.0 to 31.9 in adult- Primary Class 1 obesity due to excess calories with serious comorbidity and body mass index (BMI) of 33.0 to 33.9 in adult LILO (obstructive sleep apnea) Obstructive sleep apnea (adult) (pediatric) [facility]* Diagnosis Migraine without aura, not intractable, without status migrainosus [facility]* Diagnosis Allergic rhinitis, unspecified [facility]* Diagnosis Wellness examination- Primary Class 1 obesity due to excess calories with serious comorbidity and body mass index (BMI) of 33.0 to 33.9 in adult LILO (obstructive sleep apnea) Obstructive sleep apnea (adult) (pediatric) Encounter for screening colonoscopy History of colon polyps [facility]* Diagnosis Osteoporosis without current pathological fracture, unspecified osteoporosis type History of colon polyps [facility]* Diagnosis LILO (obstructive sleep apnea)- Primary Obstructive sleep apnea (adult) (pediatric) Influenza vaccination administered at current visit Class 1 obesity due to excess calories with serious comorbidity and body mass index (BMI) of 33.0 to 33.9 in adult History of colon polyps [facility]* Diagnosis Migraine without aura, not intractable, without status migrainosus History of colon polyps [facility]* Diagnosis LILO (obstructive sleep apnea) Obstructive sleep apnea (adult) (pediatric) History of colon polyps [facility]* Diagnosis Encounter for screening mammogram for malignant neoplasm of breast- Primary [facility]* Diagnosis Migraine without aura, not intractable, without status migrainosus [facility]* Diagnosis Chronic ethmoidal sinusitis- Primary Decreased sense of smell Disturbances of sensation of smell and taste Nasal polyp Unspecified nasal polyp documented in this encounter [facility] Work Phone: Evaluation note* Diagnosis Mid back pain on left side- Primary Neck pain Cervicalgia [facility]* Diagnosis Thoracic spondylosis without myelopathy- Primary [facility]* Diagnosis LILO (obstructive sleep apnea)- Primary Obstructive sleep apnea (adult) (pediatric) BMI 30.0-30.9,adult Obesity (BMI 30-39.9) Difficulty with CPAP use [facility]* Diagnosis Community acquired pneumonia of right upper lobe of lung- Primary Hiatal hernia Diaphragmatic hernia without mention of obstruction or gangrene Obstructive sleep apnea Obstructive sleep apnea (adult) (pediatric) documented [facility]* Diagnosis Essential (primary) hypertension Unspecified essential hypertension [facility]* Diagnosis Graves' disease- Primary 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 crisis or storm Hyperthyroidism Thyrotoxicosis without mention of goiter or other cause, without mention of thyrotoxic crisis or storm Multinodular goiter Nontoxic multinodular goiter [facility] Diagnosis LILO (obstructive sleep apnea)- Primary Obstructive sleep apnea (adult) (pediatric) Difficulty with CPAP use BMI 30.0-30.9,adult [facility]* Diagnosis LILO (obstructive sleep apnea) Obstructive sleep apnea (adult) (pediatric) documented [facility]* Diagnosis Iron deficiency- Primary Disorders of iron metabolism documented [facility]* Diagnosis Osteoporosis without current pathological fracture, unspecified osteoporosis type documented [facility]* Diagnosis Iron deficiency anemia, unspecified iron deficiency anemia type- Primary documented [facility]* Diagnosis Decreased sense of smell- Primary Disturbances of sensation of smell and taste Chronic ethmoidal sinusitis documented in this encounter [facility] Work Phone: Evaluation note* Diagnosis Migraine without aura, not intractable, without status migrainosus Allergic rhinitis, unspecified [facility]* Diagnosis Well adult exam- Primary Routine general medical examination at a health care facility Migraine without aura, not intractable, without status migrainosus Obesity (BMI 30-39.9) Mild intermittent asthma without complication [facility]* Diagnosis Overweight- Primary BMI 29.0-29.9,adult Essential hypertension Unspecified essential hypertension Obesity (BMI 30-39.9) Other migraine without status migrainosus, not intractable [facility] No assessment recorded. [place] [facility] Evaluation note* Diagnosis LILO (obstructive sleep apnea)- Primary Obstructive sleep apnea (adult) (pediatric) Difficulty using continuous positive airway pressure (CPAP) nasal mask Iron deficiency Disorders of iron metabolism documented in this encounter [facility] SystemHistory general Narrative - Reported* Type Description Date Medical History HTN (hypertension) Medical HistoryHypercholesterolemiaMedical HistoryMigraine headacheMedical HistoryHX of PEMedical HistoryAnxietyMedical HistoryDepressionMedical History hyperthyroidismSurgical HistoryhysterectomySurgical Historycholecystectomy Surgical Historyhiatal hernia repairSurgical Historyleft knee torn meniscus Hospitalization HistoryheadachesHospitalization Historysee aboveHospitalization Historyblood clotsHospitalization HistoryContracts and Grants Other History general Narrative - Reported* Type Description Date Medical History HTN (hypertension) Medical HistoryHypercholesterolemiaMedical HistoryMigraine headacheMedical HistoryHX of PEMedical HistoryAnxietyMedical HistoryDepressionMedical History hyperthyroidismMedical Historysleep apneaSurgical HistoryhysterectomySurgical HistorycholecystectomySurgical Historyhiatal hernia repairSurgical Historyleft knee torn meniscusHospitalization HistoryheadachesHospitalization Historysee aboveHospitalization Historyblood clotsHospitalization HistoryContracts and Grants Other History general Narrative - ReportedNo medical history recorded. Gynecological HistoryNo gynecological history recorded. Obstetrics History GPAL:G 0 P 0 0 0 0 [place] [facility] Discharge instructions No data available for this section [facility]InstructionsNot on filedocumented in this encounter [facility] [...] * Influenza Vaccine (Inactivated) Information Statement (VIS) (Citizen Of [place]) documented in [facility] SystemInstructionsNot on [...] note No data available for this section [facility] Narrative* Auth/CertSpecialty Diagnoses / ProceduresReferred By ContactReferred To Contact Diagnoses Deviated nasal septum Chronic [...] Nasal Cavity Navigation-Assisted Surgery Toni Bansal MD [address] [place] [address] [facility] [address] [place] [address] Referral IDStatusReasonStart DateExpiration DateVisits RequestedVisits [id number] [facility] Work Phone: Reason for visit Narrative* Misc (Routine) - Closed SpecialtyDiagnoses / ProceduresReferred By ContactReferred To Contact Diagnoses LILO (obstructive sleep apnea) Procedures Home sleep study Barbara Peters, [employer] [address] [place] [address] Phone: tel: fax: Referral IDStatusReasonStart DateExpiration DateVisits RequestedVisits [id number]/10/[id number]/ [facility] SystemReason for visit Narrative* Misc (Routine) - Closed SpecialtyDiagnoses / ProceduresReferred By ContactReferred To Contact Diagnoses LILO (obstructive sleep apnea) Procedures Polysomnography 4 or more parameters with PAP titration Claudio Trujillo MD [address] [facility] [address] [place] [address] Phone: tel: fax: Referral IDStatusReasonStart DateExpiration DateVisits RequestedVisits [id number]/24/20256/ [facility] Summary Purpose Family History Relationship Condition Age at Onset Recorded Date/T feroz father Diabetes mellitus Unknown DeceasedUnknownMalignant neoplasmUnknownNot SpecifiedFamily history of mental disorderUnknownDiabetes mellitusUnknownHistory of strokeUnknown Relationship Condition Age at Onset Recorded Date/T feroz father Diabetes mellitus Unknown DeceasedUnknownMalignant neoplasmUnknownmotherFamily history of mental disorder UnknownDiabetes mellitusUnknownHistory of strokeUnknown Relationship Condition Age at Onset Recorded Date/T feroz father Diabetes mellitus Unknown DeceasedUnknownLeukemiaUnknownmotherDiabetes mellitusUnknownFamily history of mental disorderUnknownHistory of strokeUnknown Advance Directives Advance Directive Response Recorded Date/ Time Advance Directives No April 06 12:33pm Advance Directive Response Recorded Date/ Time Advance Directives No April 06 11:33am Advance Directive Response Recorded Date/ Time Advance Directives No December 28, 2 024 3:45pm Date ActivatedDate InactivatedComments01/17/2025 1:25 PM01/18/2025 4:16 PMDate ActivatedDate InactivatedComments01/17/2025 1:25 PM01/18/2025 4:16 PM Chief Complaint and Reason for Visit Chief Complaint i51.9 Chief Complaint i51.9 Unspecified sleep apnea Chief Complaint LILO/ANNUAL Reason for Visit BMI 33.0-33.9,adult Depression HTN (hypertension) Migraine headache Obstructive sleep apnea Restless sleeper Chief Complaint Admit Date Unknown December 13, 2024 11: 03am Chief Complaint Admit Date See order May 23, 2025 10:01am Reason for Referral SpecialtyDiagnoses / ProceduresReferred By ContactReferred To Contact Diagnoses LILO (obstructive sleep apnea) Procedures Home sleep study Barbara Peters, [employer] O[employer] [address] [place] [address] Referral IDStatusReasonStart DateExpiration DateVisits RequestedVisits [id number] Additional Source Comments INFORMATION SOURCE (unrecogn ized section and content) DATE CREATED AUTHOR 01/13/2022 [facility] DATE CREATED AUTHOR AUTHOR'S ORGANIZ ATION 06/24/2022 [facility] DATE CREATED AUTHOR AUTHOR'S ORGANIZ ATION 12/22/2022 [facility] DATE CREATED AUTHOR AUTHOR'S ORGANIZ ATION 02/11/[address] [facility] DATE CREATED AUTHOR AUTHOR'S ORGANIZ ATION 05/08/2024 [facility] DATE CREATED AUTHOR AUTHOR'S ORGANIZ ATION 07/03/2024 [facility] DATE CREATED AUTHOR AUTHOR'S ORGANIZ ATION 03/05/2025 [facility] EPIC DATE CREATED AUTHOR AUTHOR'S ORGANIZ ATION 04/11/[address] [facility] DATE CREATED AUTHOR AUTHOR'S ORGANIZ ATION 05/22/[address] [facility] DATE CREATED AUTHOR AUTHOR'S ORGANIZ ATION 06/01/[address] [facility] DATE CREATED AUTHOR AUTHOR'S ORGANIZ ATION 06/09/2025 [facility] DATE CREATED AUTHOR AUTHOR'S ORGANIZ ATION 06/20/2025 [facility] DATE CREATED AUTHOR AUTHOR'S ORGANIZ ATION 07/04/2025 [facility] DATE CREATED AUTHOR AUTHOR'S ORGANIZ ATION 07/14/2025 [facility] REASON FOR VISIT (unrecogniz ed section and content) DcdnjyQltomommOiin-clRcllktOoahqvgsHwlorh-wmNmxqslNzmkkcadDjz RefillReason CommentsBPReasonCommentsWeight CheckReasonCommentsAnnual ExamReasonComments Weight CheckReasonOnset DateCommentsSleep Lab07/07/2024HSTReasonCommentsback pain/ [facility]ReasonCommentsBack PainExtremity PainReason CommentsNew PatientHST: 07/28/2024On Current PAP therapyDME:HartSleep Apnea ReasonCommentsTCM from PMHReasonCommentsThyroid ProblemFollow-upLABReason CommentsFollow-upSleep ApneaDownload in chart- Patient here to talk about [employer].ReasonOnset DateCommentsSleep Lab03/11/2025PAPReasonOnset DateComments Med Hoybts2105/03/2025ReasonOnset DateCommentsMed Iqjrkn2706/08/2025ReasonComments Annual ExamReasonCommentsWeight CheckFeeling good. Migraines was in 07/04/2025 ReasonCommentsSleep ApneaDidn't like mask, getting a different mask sent to [facility]: Garcia Care Team (unrecognized sect ion and content) Team Status: Inactive Member Role Status Dates Gera Burciaga DO Primary Care Provider Active NABEEL Aguilar SMOKING PIPE MAKER-CAttending ProviderActive Team Status: Active Member Role Status Dates Gera Burciaga DO Primary Care Provider Active Team Status: Inactive Member Role Status Dates Gera Burciaga DO Primary Care Provider Active Peteclayton Long MDAttsusanne ProviderActive Team Status: Inactive Member Role Status Dates Gera KimajayDO manuel Primary Care Provider Active Start: December 29, 2023 End: December 28egpaul Garcia NPAttending ProviderActiveStart: December 29, 2023 End: December 29, 2023Team MemberRelationshipSpecialtyStart DateEnd Date Barbara Peters INSERT OPERATOR-[employer] [address] [place] [address] PCP - GeneralInternal Medicine02/20/23Team MemberRelationshipSpecialtyStart Date End Date Barbara Peters APRN-COOK ENCHILADA [address] [place] [address] PCP - GeneralInternal Medicine02/20/23Team MemberRelationshipSpecialtyStart Date End Date Barbara Peters INSERT OPERATOR[employer] [address] [place] [address] PCP - GeneralInternal Medicine02/20/23Team MemberRelationshipSpecialtyStart Date End Date Barbara Peters INSERT OPERATOR[employer] [address] [place] [address] PCP - GeneralInternal Medicine02/20/23Team MemberRelationshipSpecialtyStart Date End Date Barbara Peters INSERT OPERATOR[employer] [address] [place] [address] PCP - GeneralInternal Medicine02/20/23Team MemberRelationshipSpecialtyStart Date End Date Barbara Peters INSERT OPER[employer] [address] [place] [address] PCP - GeneralInternal Medicine02/20/23Team MemberRelationshipSpecialtyStart Date End Date Fran Barbara Jackson [facility] [address] [place] [address] PCP - GeneralInternal Medicine02/20/23am MemberRelationshipSpecialtyStart Date End Date Fran Barbara Jackson [facility] [address] [place] [address] PCP - GeneralInternal Medicine02/20/23Te MemberRelationshipSpecialtyStart Date End Date Barbara Peters [facility] [address] [place] [address] [facility] - [facility]02/20/23Team MemberRelationshipSpecialtyStart Date End Date Barbara Peters [facility] [address] [place] [address] PCP - GeneralInternal Medicine02/20/23Team MemberRelationshipSpecialtyStart Date End Date Barbara Peters [facility] [address] [place] [address] PCP - GeneralInternal Medicine02/20/23Team MemberRelationshipSpecialtyStart Date End Date Barbara Peters [facility] [address] [place] [address] PCP - GeneralInternal Medicine02/20/23Team MemberRelationshipSpecialtyStart Date End Date Barbara Peters [employer] OPER[employer] [address] [place] [address] PCP - GeneralInternal Medicine02/20/23Team MemberRelationshipSpecialtyStart Date End Date Barbara Peters [employer] OPER[employer] [address] [place] [address] PCP - GeneralInternal Medicine02/20/23Team MemberRelationshipSpecialtyStart Date End Date Barbara Peters [employer] OPER[employer] [address] [place] [address] PCP - GeneralInternal Medicine02/20/23 Team Status: Inactive Member Role Status Dates Thom España , Attending Provider Active S tart: December 13, 2024 End: December 13, 2024Team MemberRelationshipSpecialtyStart DateEnd Date Barbara Peters INSERT OPERATOR[employer] [address] [place] [address] PCP - [facility] Hospitalnal Medicine02/20/23Team MemberRelationshipSpecialtyStart Date End Date Barbara Peters [employer] OPER[employer] [address] [place] [address] PCP - GeneralFamily Medicine01/17/25Team MemberRelationshipSpecialtyStart DateEnd Date Barbara Peters [employer] OPER[employer] [address] [place] [address] PCP - GeneralFamily Medicine01/17/25Team MemberRelationshipSpecialtyStart DateEnd Date Barbara Peters [employer] OPER[employer] [address] [place] [address] PCP - GeneralFamily Medicine01/17/25Team MemberRelationshipSpecialtyStart DateEnd Date Gera Burciaga MD PCP - GeneralFamily Medicine12/16/23Team MemberRelationshipSpecialtyStart DateEnd Date Gera Burciaga MD PCP - Generalmi Medicine12/16/23Team MemberRelationshipSpecialtyStart DateEnd Date Barbara Peters [employer] [address] [place] [address] PCP - Generalmily Medicine01/17/25Team MemberRelationshipSpecialtyStart DateEnd Date Barbara Peters [employer] O[employer] [address] [place] [address] PCP - GeneralFamily Medicine03/31/25Team MemberRelationshipSpecialtyStart DateEnd Date Barbara Peters [employer] [address] [place] [address] PCP - GeneralFamily Medicine03/31/25Team MemberRelationshipSpecialtyStart DateEnd Date Barbara Peters [employer] O[employer] [address] [place] [address] PCP - GeneralFamily Medicine03/31/25Team MemberRelationshipSpecialtyStart DateEnd Date Barbara Peters INSERT OPERATOR[employer] [address] [place] [address] PCP - [facility]03/31/25 Team Status: Inactive Member Role Status Dates Nohemi Garcia MD Attending Provider Active Start : May 23, 2025 End: May 23, 2025Michael Moran Care ProviderActiveStart: May 23, 2025 End: May 23, 2025Team MemberRelationshipSpecialtyStart DateEnd Date Barbara Peters, INSERT OPERATOR[employer] [address] [place] [address] PCP - [facility]03/31/25Team MemberRelationshipSpecialtyStart DateEnd Date Barbara Peters INSERT OPERATOR[employer] [address] [place] [address] PCP - [facility]03/31/25Team MemberRelationshipSpecialtyStart DateEnd Date Barbara Peters [employer] OPER[employer] [address] [place] [address] PCP - [facility]03/31/25Team MemberRelationshipSpecialtyStart DateEnd Date Gera Burciaga MD PCP - [facility]12/16/23 Goals (unrecognized section and content) Goals may be documented in a n alternate section Scheduled Active and Recently Administ ered Medications (unrecognized section and content) Medication Order aprepitant (Emend) capsule 40 mg 40 mg, oral, Daily, First dose on Lorraine 06/17/24 at 1230, Preprocedure * 1230 (Due) oxygen (O2) therapy inhalation, Continuous - , First dose on Lorraine 06/17/24 at 1245, Recovery (only), Device: Nasal Cannula, Rate in liters per minute: 2 LPM, Keep O2 Sat Above: 92% * 1245 (Due) Medication Order/ lactated Ringer's infusion 20 mL/hr, intravenous, Continuous, Starting on Lorraine 06/17/24 at 0715, Preprocedure * 0717 (New Bag - Provider: Janine Menchaca, CECE) * 0737 (Paused - Provider: KEITH Gan - Comment: Switch to gravity) * 0738 (New Bag - Provider: KEITH Gan) * 0740 (Canceled Entry - Provider: KEITH Gan - Comment: Switch to gravity) * 0741 (New Bag - Provider: KEITH Gan) * 1140 (Stopped - Provider: KEITH Gan) * 1200 (Continued from OR - Provider: Batsheva Jaramillo, CECE) * 1315 (Stopped - Provider: Reanna Peterson RN) lactated Ringer's infusion 100 mL/hr, intravenous, Continuous, Starting on Lorraine 06/17/24 at 1245, Recovery (only) * 1245 (Due) Medication Order/11/2023 acetaminophen (Tylenol) tablet 650 mg 650 mg, [...] of dose., If ordered PRN for pain, nurseis permitted to administer this medication for higher pain scores based on patient preference? Yes lidocaine-epinephrine (Xylocaine W/EPI) 1 %-1:100,000 injection (CANCELED) As needed, Starting on Lorraine 06/17/24 at 0829, Intraprocedure * 0829 (Given - Provider: Toni Bansal MD - Comment: NOSE) mupirocin (Bactroban) 2 % ointment (CANCELED) As needed, Starting on Lorraine 06/17/24 at 1050, Intraprocedure * 1050 (Given - Provider: Toni Bansal MD - Comment: NASAL SPLINT) [...] pain scores based on patient preference? Yes * 1255 (Given - Provider: Batsheva Jaramillo, CECE) oxymetazoline (Afrin) 0.05 % nasal spray (CANCELED) As needed, Starting on Lorraine 06/17/24 at 0830, Intraprocedure * 0830 (Given - Provider: Toni Bansal MD) sodium chloride 0.9 % irrigation solution (CANCELED) As needed, Starting on Lorraine 06/17/24 at 0830, Intraprocedure * 0830 (Given - Provider: Toni Bansal MD) * 1117 (Given - Provider: Toni Bansal MD) sodium chloride 0.9 % irrigation solution (CANCELED) As needed, Starting on [place]raine 06/17/24 at 0830, Intraprocedure * 0830 (Given - Provider: Toni Bansal MD - Comment: MICRODEBRIDER IRRIGATION) [...] BE BASED ON THE PRIMARY CLINICAL RECORDS. [facility]. provides no warranty or guarantee of the accuracy or completeness of information in this document.
== END 2025-08-08 08:13 | disposition home or self-care (01) ==
LOC: US 08:12
PROVIDERS: PCP Family Medicine; Visit Provider Urology
DX: N20.0 Calculus of kidney (principal)
CPT/HCPCS: 76775

== ENCOUNTER 2025-08-26 10:23 | Emergency (ER) | payer OTHER, SELFPAY ==
[2025-08-26 10:26] VITALS: BP 167/79; PULSE 81; TEMP 36.4; O2SAT 98; BMI 28.6
[2025-08-26 10:30] VITALS: BP 167/79; O2SAT 99
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
[2025-08-26] MEDS: 0.9 % SODIUM CHLORIDE 1,000 ML 1000 ML IV (10:54)
[2025-08-26] MEDS: METHYLPREDNISOLONE SOD SUCC PF 125 MG/2 ML VIAL IVP (10:56)
[2025-08-26] MEDS: DIPHENHYDRAMINE HCL 50 MG/ML VIAL 25 MG IVP (10:56)
[2025-08-26] MEDS: KETOROLAC TROMETHAMINE 30 MG/ML VIAL IVP (10:56)
[2025-08-26 11:08] VITALS: BP 133/82
[2025-08-26 11:08] LABS: Hematocrit 44.0 % (36.0-48.0); Hemoglobin 14.4 g/dL (12.0-16.0); Immature Granulocytes Abs Auto 0.03 10^3/uL (0.00-0.03); Immature Granulocytes Pct Auto 0.3 % (0.0-0.5); Lymphocytes Absolute Auto 1.3 10^3/uL (1.2-3.8); Mean Corpuscular HGB Conc 32.7 g/dL (29.9-35.2); Mean Corpuscular Hemoglobin 29.3 pg (26.7-34.0); Mean Corpuscular Volume 89.4 fL (81.0-99.0); Platelet Count 392 10^3/uL (150-450); Red Blood Count 4.92 10^6/uL (4.20-5.40); White Blood Count 9.9 10^3/uL (4.0-11.0)
[2025-08-26 11:29] LABS: Anion Gap 10.8; Blood Urea Nitrogen 11.0 mg/dL (7.0-18.0); Calcium 9.2 mg/dL (8.5-10.1); Carbon Dioxide 26.9 mmol/L (21.0-32.0); Chloride 105 mmol/L (98-107); Estimated GFR (African America >60 (>=60 mL/min/1.73m^2); Estimated GFR (Non-African Ame >60 (>=60 mL/min/1.73m^2); Glucose 125 mg/dL (74-106); Potassium 3.7 mmol/L (3.5-5.1); Sodium 139 mmol/L (136-145)
[2025-08-26 11:30] VITALS: BP 135/70
[2025-08-26 12:00] VITALS: BP 152/76
== END 2025-08-26 12:32 | disposition home or self-care (01) ==
PROVIDERS: Emergency Provider Emergency Medicine; PCP Family Medicine
DX: R51.9 Headache, unspecified (principal); Z87.891 Personal history of nicotine dependence
CPT/HCPCS: 36415; 80048; 85025; 96374; 96375; 99284; J1200; J1885; J2405; J2919